=== PATIENT | male | born 1945 | race Two or more races ===

== ENCOUNTER → 2017-09-07 | Day surgery (SDC) | payer MEDICARE, OTHER ==
[2017-09-06 14:41] LABS: BASOPHILS % 0.8 % (0.0-1.0); EOSINOPHILS # (AUTO) 0.1 (0.0-0.4); EOSINOPHILS % 2.4 % (0.0-6.0); HEMATOCRIT 47.9 % (38.2-49.6); HEMOGLOBIN 15.9 g/dL (14.0-18.0); LYMPHOCYTES # (AUTO) 1.9 (1.0-3.2); LYMPHOCYTES % 51.4 % (18.0-39.1); MEAN CORPUSCULAR HEMOGLOBIN 29.8 pg (28-32); MEAN CORPUSCULAR HGB CONC 33.2 g/dL (31-35); MEAN CORPUSCULAR VOLUME 89.9 fL (81-99); MONOCYTES # (AUTO) 0.4 (0.2-0.8); MONOCYTES % 11.4 % (4.4-11.3); NEUTROPHILS # (AUTO) 1.2 (2.1-6.9); NEUTROPHILS % 33.2 % (38.7-80.0); PLATELET COUNT 293 x10e3/uL (140-360); RED BLOOD COUNT 5.33 x10e6/uL (4.3-5.7); RED CELL DISTRIBUTION WIDTH 13.1 % (11.7-14.4)
--- NOTE | 2017-09-06 15:10 | Diagnostic Imaging Report ---
PROCEDURE: Frontal and lateral views of the chest. COMPARISON: Chest CT dated 08/06/16 INDICATIONS: PREOPERATIVE CHEST XRAY FOR PROSTATE BIOPSY FINDINGS: Lines/tubes: None. Lungs: The lungs are well inflated and clear. There is no evidence of pneumonia or pulmonary edema. Pleura: There is no pleural effusion or pneumothorax. Heart and mediastinum: The heart and the mediastinum are normal. Bones: No acute bony abnormality. IMPRESSION: 1. No acute cardiopulmonary disease. Dictated by: Jareth Simpson M.D. on 09/06/2017 at 15:18 Electronically approved by: Jareth Simpson M.D. on 09/06/2017 at 15:18
[~2017-09-07] MED LIST: AMITRIPTYLINE H25 MG PO; BELLADONNA/OPIUM 60 MG SUPP PR ONE; CEFAZOLIN SOD 2 GM/D5W 50ML 50 ML IV ONE; CIPRO500 MG PO; DEXAMETHASONE SOD PHOS INJ 4 MG/ML VIAL ONE; FENTANYL CITRATE/PF 100MCG/2 ML INJ ONE; FLOMAX0.4 MG; FLOMAX0.4 MG PO; IOPAMIDOL 610MG/1ML 300 MG/ML VIAL IV ONE; KEFLEX; LEVAQUIN500 MG PO; LIDOCAINE HCL 2% LOCAL INJ 5 ML SDV VIAL INJ ONE; LOSARTAN PO; MIDAZOLAM HCL 2 MG/2 ML VIAL ONE; ONDANSETRON HCL INJ 2 MG/ML VIAL ONE; PHENAZOPYRIDIN200 MG PO; POTASSIUM CHLO10 MEQ PO; PROPOFOL IV EMULSION 10 MG/ML 20 ML VIAL ONE; SEVOFLURANE INHAL SOLN 250 ML PEN BTL ONE; SODIUM CHLORIDE 0.9% IV SCH; TOBRAMYCIN IV SCH; TRAZODONE HCL50 MG PO; TRIAMTERENE-HC1 EAC1 PO; ZANAFLEX4 M1 PO
--- NOTE | 2017-09-07 13:11 | Operative Report ---
DATE OF PROCEDURE: September 07, 2017 SERVICE: Urology. PREOPERATIVE DIAGNOSES 1. Microhematuria. 2. Elevated prostate-specific antigen. 3. Frequency. 4. BPH. POSTOPERATIVE DIAGNOSES 1. Microhematuria. 2. Elevated prostate-specific antigen. 3. Frequency. 4. BPH. OPERATION PERFORMED 1. Cystoscopy and bilateral retrograde pyelograms under fluoroscopic control. 2. Supervision of fluoroscopy. 3. Interpretation of x-ray. 4. Prostate ultrasound. 5. Ultrasound-guided needle biopsy of the prostate with 12 cores, 6 from each side. SHEET ROCK NAILER: None. ANESTHESIA: General. CLINICAL INDICATIONS: This is a 71-year-old patient that was brought for evaluation of microhematuria and elevated PSA. Attempt to do a biopsy in the office was not very well tolerated by the patient; therefore, it is going to be done under anesthesia. The procedure was discussed with the patient including potential benefits and complications, discussed and accepted. DESCRIPTION OF PROCEDURE AND FINDINGS: After proper level of anesthesia was achieved, the patient was placed in the lithotomy position, prepped and draped in a sterile fashion. The urethra was inspected and was unremarkable. The outlet is obstructed by a trilobar prostate. The bladder is significantly trabeculated. Multiple shallow saccules are present. Both ureteral orifices are in normal position. No tumor was present in the bladder. A cone-tip catheter was then used, and bilateral retrograde pyelograms were done under fluoroscopic control. No intrinsic lesions were identified. There was minimal J-hooking of the distal ureters bilaterally. Following this, the bladder was filled up with irrigation fluid. Ultrasound examination of the prostate was then done. Systematic prostate biopsies were done with 6 cores from each side, 2 base, 2 mid and 2 apex. Same was done on the contralateral side. All this was done with ultrasound guidance. The patient tolerated the procedure well. A B\T\O suppository was inserted transrectally following the procedure. The patient was transferred in satisfactory condition to the recovery room. He will be followed as an outpatient. Job#: [id number]
== END | disposition home or self-care (01) ==
LOC: OR 07:10
PROVIDERS: ATTEND Urology
DX: R97.20 Elevated prostate specific antigen [PSA] (principal); N42.89 Other specified disorders of prostate; N41.1 Chronic prostatitis; N32.89 Other specified disorders of bladder; I10 Essential (primary) hypertension; I45.10 Unspecified right bundle-branch block; R00.1 Bradycardia, unspecified; N40.0 Benign prostatic hyperplasia without lower urinary tract symptoms; Z01.810 Encounter for preprocedural cardiovascular examination; Z01.812 Encounter for preprocedural laboratory examination; Z01.818 Encounter for other preprocedural examination; Z86.73 Personal history of transient ischemic attack (TIA), and cerebral infarction without residual deficits
CPT/HCPCS: 36415; 52005; 55700; 71020; 74420; 76872; 76942; 85025; 88305; 93005; C1758; J1100; J2001; J2250; J2405; J3260; Q9967; 71046

== ENCOUNTER 2018-07-06 08:34 | Observation (INO) | payer MEDICARE, OTHER ==
[2018-07-04 09:42] LABS: BASOPHILS # (AUTO) 0.1 (0.0-0.1); BASOPHILS % 1.4 % (0.0-1.0); EOSINOPHILS # (AUTO) 0.1 (0.0-0.4); EOSINOPHILS % 2.9 % (0.0-6.0); HEMOGLOBIN 15.4 g/dL (14.0-18.0); LYMPHOCYTES # (AUTO) 1.9 (1.0-3.2); LYMPHOCYTES % 43.9 % (18.0-39.1); MEAN CORPUSCULAR HGB CONC 33.5 g/dL (31-35); MEAN CORPUSCULAR VOLUME 89.5 fL (81-99); MONOCYTES # (AUTO) 0.5 (0.2-0.8); MONOCYTES % 10.2 % (4.4-11.3); NEUTROPHILS # (AUTO) 1.7 (2.1-6.9); NEUTROPHILS % 37.8 % (38.7-80.0); PLATELET COUNT 213 x10e3/uL (140-360); RED BLOOD COUNT 5.14 x10e6/uL (4.3-5.7)
[2018-07-04 10:09] LABS: INR 0.95; PROTHROMBIN TIME 13.6 seconds (11.9-14.5)
[2018-07-04 10:18] LABS: ANION GAP 12.5 mmol/L (8-16); BLOOD UREA NITROGEN 12 mg/dL (7-26); BUN/CREATININE RATIO 13 (6-25); CALCIUM 9.7 mg/dL (8.4-10.2); CARBON DIOXIDE 28 mmol/L (22-29); CHLORIDE 106 mmol/L (98-107); CREATININE, SERUM 0.96 mg/dL (0.72-1.25); EST GLOMERULAR FILTRATION RATE > 60 ML/MIN (60-); GLUCOSE 86 mg/dL (74-118); POTASSIUM 4.5 mmol/L (3.5-5.1); SODIUM 142 mmol/L (136-145)
[2018-07-04 12:32] LABS: ANISOCYTOSIS SLIGHT; EOSINOPHILS % (MANUAL) 2 % (0-7); LYMPHOCYTES % (MANUAL) 33 % (19-48); METAMYELOCYTES % (MANUAL) 2 % (0-0); MONOCYTES % (MANUAL) 9 % (3.4-9.0); MYELOCYTES % (MANUAL) 1 % (0-0); NEUTROPHILS % (MANUAL) 48 % (40-74); RBC MORPHOLOGY COMMENT NORMAL
[2018-07-04 12:33] LABS: PLATELET ESTIMATE ADEQUATE; PLATELET MORPHOLOGY COMMENT NORMAL
[~2018-07-06] VITALS: Ht 170.2 cm; Wt 83.1 kg
[~2018-07-06 08:34] MED LIST changes: -BELLADONNA/OPIUM 60 MG SUPP PR ONE; -CEFAZOLIN SOD 2 GM/D5W 50ML 50 ML IV ONE; -DEXAMETHASONE SOD PHOS INJ 4 MG/ML VIAL ONE; -FENTANYL CITRATE/PF 100MCG/2 ML INJ ONE; -IOPAMIDOL 610MG/1ML 300 MG/ML VIAL IV ONE; -LIDOCAINE HCL 2% LOCAL INJ 5 ML SDV VIAL INJ ONE; +LOSARTAN POTASS50 MG PO; -MIDAZOLAM HCL 2 MG/2 ML VIAL ONE; -ONDANSETRON HCL INJ 2 MG/ML VIAL ONE; -PROPOFOL IV EMULSION 10 MG/ML 20 ML VIAL ONE; -SEVOFLURANE INHAL SOLN 250 ML PEN BTL ONE; +SIMVASTATIN40 MG PO; -SODIUM CHLORIDE 0.9% IV SCH; -TOBRAMYCIN IV SCH
--- OUTSIDE RECORDS SUMMARY | 2018-07-06 08:37 | XMS REPORT | Clinical Summary ---
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 Active losartan (COZAAR) 50 MG Take 50 mg by 0 tablet mouth daily. Active simvastatin (ZOCOR) 40 MG Take 40 mg by 0 tablet mouth nightly. Active multivitamin (THERAGRAN) Take 1 tablet 0 tablet by mouth daily. Active ascorbic acid, vitamin C, Take 500 mg 0 (VITAMIN C) 500 MG tablet by mouth daily. Active traZODone (DESYREL) 100 Take 100 mg 0 MG tablet by mouth nightly. Active Problems Not on file Encounters Care Team Description Date Type Specialty Ruben Montero MD Cysto Retrograde-Bilateral 02/15/2018 Surgery General Surgery Mainor Mims MD 02/15/2018 Anesthesia General Surgery Event Ruben Montero MD 02/15/2018 Hospital General Surgery Encounter Ruben Montero MD Preoperative testing (Primary Dx) 02/10/2018 Pre-Admit Pre-Admission Testing Testing Appointment Ruben Montero MD Benign localized hyperplasia of prostate with urinary retention 01/11/2018 Hospital Radiology Encounter Ruben Montero MD Benign localized hyperplasia of prostate with urinary retention (Primary Dx) 12/27/2017 Transcribe Access Orders after 07/05/2017 Family History Medical History Relation Name Comments No Known Problems Father No Known Problems Mother Relation Name Status Comments Father Mother Social History Date Tobacco Use Types Packs/Day Years Used Current Every Day Smoker Smokeless Tobacco: Never Used Comments: HOOKA Alcohol Use Drinks/Week oz/Week Comments No Sex Assigned at Date Recorded Not on file Industry Job Start Date Occupation Not on file Not on file Not on file Travel End Travel History Travel Start No recent travel history available. Last Filed Vital Signs Time Taken Vital Sign Reading 02/15/2018 1:58 PM CDT Blood Pressure 131/74 02/15/2018 1:58 PM CDT Pulse 57 02/15/2018 1:58 PM CDT Temperature 36.3 C (97.3 F) 02/15/2018 1:58 PM CDT Respiratory Rate 18 02/15/2018 1:58 PM CDT Oxygen Saturation 97% - Inhaled Oxygen - Concentration 02/15/2018 10:24 AM CDT Weight 78.2 kg (172 lb 4.8 oz) 02/15/2018 10:24 AM CDT Height 170.2 cm (5' 7") 02/15/2018 10:24 AM CDT Body Mass Index 26.99 Plan of Treatment Health Maintenance Due Date Last Done Comments COLON CANCER SCREENING 12/08/1995 SHINGRIX VACCINE (1 of 2) 12/08/1995 ZOSTER VACCINE 2005 PNEUMOCOCCAL 2010 POLYSACCHARIDE VACCINE AGE 65 AND OVER PNEUMOCOCCAL-13 2010 INFLUENZA VACCINE 03/09/2018 Procedures Comments Procedure Name Priority Date/Time Associated Diagnosis FL PYELOGRAM RETROGRADE Routine 02/15/2018 2:31 PM CDT ANESTHESIA INTUBATION Routine 02/15/2018 1:02 PM CDT Procedure Note - Angel Espinoza CRNA - 02/15/2018 1:02 PM CDT Airway Performed by: ANGEL ESPINOZA Authorized by: MAINOR MIMS IN AN ELECTIVE Routine 02/15/2018 SUPRAGLOTTIC AIRWAY 12:57 PM CDT Procedure Note - Angel Espinoza CRNA - 02/15/2018 12:57 PM CDT Airway Date/Time: 02/15/2018 12:48 PM Performed by: ANGEL ESPINOZA Authorized by: MAINOR MIMS Location: OR Urgency: Elective Difficult Airway: No Resident/C RNA/AA: ANGEL ESPINOZA Performed by: resident/C RNA/AA Preoxygena brenton with 100% O2: Yes C-spine Precaution s Maintained Throughout : Yes Mask Ventilatio n: Not attempted Final Airway Type: Supraglott ic airway Final LMA: Classic LMA Size: 4 Number of Attempts at Approach: 1 ECG PRE/POST OP Routine 02/10/2018 Preoperative testing 12:41 PM CDT ZZESTIMATED GFR Routine 02/10/2018 12:20 PM CDT BASIC METABOLIC PANEL Routine 02/10/2018 Preoperative testing 12:20 PM CDT HC COMPLETE BLD COUNT Routine 02/10/2018 Preoperative testing W/AUTO DIFF 12:20 PM CDT ZZESTIMATED GFR Routine 01/11/2018 11:43 AM CDT PROSTATE SPECIFIC ANTIGEN Routine 01/11/2018 Neoplasm of uncertain 11:43 AM CDT behavior of prostate Nontraumatic rupture of bladder PROTHROMBIN TIME WITH INR Routine 01/11/2018 Neoplasm of uncertain 11:43 AM CDT behavior of prostate Nontraumatic rupture of bladder BASIC METABOLIC PANEL Routine 01/11/2018 Neoplasm of uncertain 11:43 AM CDT behavior of prostate Nontraumatic rupture of bladder CBC HEMOGRAM Routine 01/11/2018 Neoplasm of uncertain 11:43 AM CDT behavior of prostate Nontraumatic rupture of bladder US PROSTATE Routine 01/11/2018 Benign localized 11:38 AM CDT hyperplasia of prostate with urinary retention after 07/05/2017 Results * FL Pyelogram Retrograde (02/15/2018 2:31 PM CDT) Narrative Performed At EXAM: [facility] Intraoperative fluoroscopy. INDICATION: Retrograde pyelogram COMPARISON: None. IMPRESSION: Retrograde cannulation right ureter with contrast injection. No right hydroureteronephrosis. Retrograde cannulation left ureter with contrast injection. No left hydroureteronephrosis. Final image demonstrate cystoscope left paramedian bladder. Partially visualized moderate arthrosis left hip. Intraoperative fluoroscopic images. Radiologist was not present during the examination. Please see separate operative report for additional detail. Fluoroscopy time equals 47 seconds. 4 image(s). Procedure Note Interface, Radiology Results Incoming - 02/15/2018 2:54 PM CDT EXAM: Intraoperative fluoroscopy. INDICATION: Retrograde pyelogram COMPARISON: None. IMPRESSION: Retrograde cannulation right ureter with contrast injection. No right hydroureteronephrosis. Retrograde cannulation left ureter with contrast injection. No left hydroureteronephrosis. Final image demonstrate cystoscope left paramedian bladder. Partially visualized moderate arthrosis left hip. Intraoperative fluoroscopic images. Radiologist was not present during the examination. Please see separate operative report for additional detail. Fluoroscopy time equals 47 seconds. 4 image(s). Performing Organization Address [facility] Phone Number [facility] [address] [place] [address] * ECG Pre/Post Op (02/10/2018 12:41 PM CDT) Ventricular rate 49 [facility] Atrial rate 49 [facility] IN interval 136 [facility] QRSD interval 130 [facility] QT interval 444 [facility] QTC interval 401 [facility] P axis 1 27 [facility] QRS axis 1 -49 [facility] T wave axis 31 [facility] EKG impression Marked sinus bradycardia-Right [facility] MUSE bundle branch block-Left anterior fascicular block-^^^ Bifascicular block ^^^-Possible Lateral infarct , age undetermined-Abnormal ECG-In automated comparison with ECG of 17-MAY-2013 16:37,-Vent. rate has decreased BY26 BPM-(RBBB and left anterior fascicular block) is now present- Performing Organization Address [facility] Phone Number [facility] MUSE [address] [place] [address] * Estimated GFR (02/10/2018 12:20 PM CDT) Only the most recent of 2 results within the time period is included. GFR Non Af Amer 73 mL/min/1.73 m2 [facility]OLOGY AND GENOMIC MEDICINE GFR Af Amer 89 mL/min/1.73 m2 [facility] OF Comment: PATHOLOGY AND Chronic kidney disease: <60 GENOMIC MEDICINE mL/min/1.73m2 Kidney failure: <15 mL/min/1.73m2 The estimated GFR is calculated from the IDMS-traceable Modification of Diet in Renal Disease Equation. The accuracy of the calculation is poor when the creatinine is normal. Calculated values >90 mL/min/1.73m2 are not reported. This equation has not been validated in children (<18 years), women, the elderly (>70 years), or ethnic groups other than Caucasians and Americans. Specimen Plasma specimen Performing Organization Address City/[facility]/Zipcode Phone Number [phone] [place] [address] PATHOLOGY AND GENOMIC MEDICINE * CBC with platelet and differential (02/10/2018 12:20 PM CDT) WBC 4.3 4.2 - 11.0 k/uL [facility] AND GENOMIC MEDICINE RBC 4.96 4.04 - 5.86 m/uL [facility] PATHOLOGY AND GENOMIC MEDICINE HGB 14.8 13.0 - 17.3 g/dL [facility] PATHOLOGY AND GENOMIC MEDICINE HCT 45.8 (H) 34.0 - 45.0 % [facility]OLOGY AND GENOMIC MEDICINE MCV 92.3 80.0 - 98.0 fL [facility]OLOGY AND GENOMIC MEDICINE MCH 29.8 27.0 - 34.0 pg [facility] OF PATHOLOGY AND GENOMIC MEDICINE MCHC 32.3 31.5 - 36.5 g/dL [facility] OF PATHOLOGY AND GENOMIC MEDICINE RDW - SD 45.1 37.0 - 51.0 fL [facility]OLOGY AND GENOMIC MEDICINE MPV 10.1 7.4 - 10.4 fL [facility]OLOGY AND GENOMIC MEDICINE Platelet count 206 150 - 400 k/uL [facility]OLOGY AND GENOMIC MEDICINE Nucleated RBC 0.00 /100 WBC [facility] OF PATHOLOGY AND GENOMIC MEDICINE Neutrophils 48.3 36.0 - 66.0 % [facility]OLOGY AND GENOMIC MEDICINE Lymphocytes 38.2 24.0 - 44.0 % [facility]OLOGY AND GENOMIC MEDICINE Monocytes 9.3 (H) 0.0 - 6.0 % [facility]OLOGY AND GENOMIC MEDICINE Eosinophils 3.5 0.0 - 6.0 % [facility] OF PATHOLOGY AND GENOMIC MEDICINE Basophils 0.5 0.0 - 1.2 % [facility] PATHOLOGY AND GENOMIC MEDICINE Immature granulocytes 0.2 0.0 - 1.0 % [facility] OF PATHOLOGY AND GENOMIC MEDICINE Specimen Blood Performing Organization Address City/State/Zipcode Phone Number [address] [place] [address] PATHOLOGY AND [employer] [facility] * Basic metabolic panel (02/10/2018 12:20 PM CDT) Only the most recent of 2 results within the time period is included. Sodium 142 135 - 150 mEq/L [facility] OF PATHOLOGY AND [employer] MEDICINE Potassium 4.3 3.5 - 5.0 mEq/L [facility] OF PATHOLOGY AND [employer] MEDICINE Chloride 104 98 - 112 mEq/L [facility] PATHOLOGY AND [employer] MEDICINE CO2 27 24 - 31 mmol/L [facility] OF PATHOLOGY AND [employer] MEDICINE Anion gap 11@ANIO 7 - 15 mEq/L [facility] OF PATHOLOGY AND [employer] MEDICINE BUN 10 7 - 18 mg/dL [facility] OF PATHOLOGY AND [employer] MEDICINE Creatinine 1.00 0.70 - 1.20 mg/dL [facility] OF PATHOLOGY AND [employer] MEDICINE Glucose 89 65 - 100 mg/dL [facility] PATHOLOGY AND [employer] MEDICINE Calcium 9.8 8.8 - 10.2 mg/dL [facility] PATHOLOGY AND [employer] MEDICINE Specimen Plasma specimen Performing Organization Address City/[facility] Phone Number [address] [place] [address] PATHOLOGY [facility] [employer] [facility] * Prothrombin time with INR (01/11/2018 11:43 AM CDT) Prothrombin time 13.7 12.0 - 15.0 sec [facility] PATHOLOGY AND [employer] MEDICINE INR 1.04 0.92 - 1.12 [facility] Comment: PATHOLOGY AND For patients on anticoagulant GENOMIC MEDICINE therapy, reference ranges below: Indication: INR Value Treatment of Venous Thrombosis, 2.0-3.0 pulmonary emboli, or prophylaxis of a venous thrombosis, or systemic emboli. High dose, high risk patients 3.0-4.5 with mechanical valves. NOTE:INR values over 3.0 are sometimes associated with gastrointestinal hemorrhage, especially values over 4.0. Specimen Blood Performing Organization Address City/[facility] Phone Number [address] [employer] [facility] * CBC hemogram (01/11/2018 11:43 AM CDT) WBC 4.0 (L) 4.2 - 11.0 k/uL [facility] PATHOLOGY AND GENOMIC MEDICINE RBC 4.90 4.04 - 5.86 m/uL [facility] PATHOLOGY AND GENOMIC MEDICINE HGB 14.4 13.0 - 17.3 g/dL [facility] PATHOLOGY AND GENOMIC MEDICINE HCT 45.0 34.0 - 45.0 % [facility] PATHOLOGY AND GENOMIC MEDICINE MCV 91.8 80.0 - 98.0 fL [facility] PATHOLOGY AND GENOMIC MEDICINE MCH 29.4 27.0 - 34.0 pg [facility] OF PATHOLOGY AND GENOMIC MEDICINE MCHC 32.0 31.5 - 36.5 g/dL [facility] OF PATHOLOGY AND GENOMIC MEDICINE RDW - SD 48.1 37.0 - 51.0 fL [facility] OF PATHOLOGY AND GENOMIC MEDICINE MPV 10.9 (H) 7.4 - 10.4 fL [facility]OLOGY AND GENOMIC MEDICINE Platelet count 171 150 - 400 k/uL [facility] OF PATHOLOGY AND GENOMIC MEDICINE Nucleated RBC 0.00 /100 WBC [facility] OF PATHOLOGY AND GENOMIC MEDICINE Specimen Blood Performing Organization Address City/[facility]/Zipcode Phone Number [facility] [address] [place] [address] PATHOLOGY AND GENOMIC MEDICINE * Prostate specific antigen (01/11/2018 11:43 AM CDT) PSA 5.1 (H) 0.0 - 4.0 ng/mL [facility] DEPARTMENT OF Comment: PATHOLOGY AND The HAO 8000 PSA immunoassay [facility] was used. Results obtained with different assay methods or kits should not be used interchangeably and may be different. Specimen Plasma specimen Performing Organization Address City/[facility]/Zipcode Phone Number [facility] DEPARTMENT OF [address] [place] [address] PATHOLOGY AND GENOMIC MEDICINE * US Prostate (01/11/2018 11:38 AM CDT) Narrative Performed At EXAMINATION:US PROSTATE [facility] CLINICAL HISTORY:N40.1 Benign prostatic hyperplasia with lower urinary tract symptoms, N40.1 COMPARISON:None. Multiple transrectal sonographic images of the prostate gland are obtained using real-time ultrasonography. FINDINGS: The prostate gland measures 5.1 x 5.8 x 4.2 cm. The prostate volume is 65.8 cc. The prostate has a heterogeneous appearance. Minimal calcifications are present. The seminal vesicles are unremarkable. There is a 0.7 cm hypoechoic density seen within the prostate. IMPRESSION: 1. The prostate gland is enlarged. 2. The prostate has a heterogeneous appearance. 3. There is a 0.7 cm hypoechoic density seen within the prostate. Procedure Note Hm Interface, Radiology Results Incoming - 01/11/2018 2:29 PM CDT EXAMINATION: US PROSTATE CLINICAL HISTORY: N40.1 Benign prostatic hyperplasia with lower urinary tract symptoms, N40.1 COMPARISON: None. Multiple transrectal sonographic images of the prostate gland are obtained using real-time ultrasonography. FINDINGS: The prostate gland measures 5.1 x 5.8 x 4.2 cm. The prostate volume is 65.8 cc. The prostate has a heterogeneous appearance. Minimal calcifications are present. The seminal vesicles are unremarkable. There is a 0.7 cm hypoechoic density seen within the prostate. IMPRESSION: 1. The prostate gland is enlarged. 2. The prostate has a heterogeneous appearance. 3. There is a 0.7 cm hypoechoic density seen within the prostate. Performing Organization Address City/State/[facility] Phone Number [facility] [address] [place] [address] after 07/05/2017 Insurance Payer Benefit Subscriber ID Type Phone Address Plan / Group MEDICARE MEDICARE xxxxxxxxxx Medicare [place], [place] PART A AND B [employer] Advance Directives Patient has advance care planning documents on file. For more information, eduardo e contact: Brown Michelle [address] [place] [address]
--- OUTSIDE RECORDS SUMMARY | 2018-07-06 08:38 | XMS REPORT | Summary of Care ---
Author Author [facility] Organization [facility] Address Unknown Phone Unavailable Encounter LILLIE Miranda(LARISSA) [id number] Date(s): 07/08/17 - 07/08/17 [facility] [address] [address]- [phone] Discharge Disposition: Home or Self Care Attending Physician: Ayo Roque MD Referring Physician: Ayo Roque MD Vital Signs 1 2 3 Most recent to oldest [Reference Range]: 170.18 cm (07/05/17 2:46 PM) Height 97.9 DegF (07/08/17 11:44 AM) 97.9 DegF (07/06/17 10:23 AM) Temperature Oral [96.4-99.1 DegF] 140/85 mmHg (07/08/17 2:34 PM) 133/91 mmHg (07/08/17 2:24 PM) 133/87 mmHg (07/08/17 2:20 PM) Blood Pressure [90-140/60-90 mmHg] 14 BRMIN (07/08/17 3:01 PM) 14 BRMIN (07/08/17 2:34 PM) 14 BRMIN (07/08/17 2:24 PM) Respiratory Rate [14-20 BRMIN] 68 bpm (07/08/17 11:44 AM) 64 bpm (07/06/17 10:23 AM) Peripheral Pulse Rate [60-100 bpm] 85.455 kg (07/08/17 11:02 AM) Weight 29.51 m2 (07/08/17 11:02 AM) Body Mass Index Problem List Condition Effective Dates Status Health Status Informant Acute Active prostatitis(Confirme d) Anxiety(Confirmed) Active BPH (benign Active prostatic hyperplasia)(Confirm ed) Acid Active reflux(Confirmed)1 Hypercholesterolemia Active (Confirmed) Hypertension(Confirm Active ed)2 Kidney Resolved stone(Confirmed)3 Stroke(Confirmed)4 Resolved 1Occassionally 2HTN per Surgeon H & P; pt denies HTN, states "was put on the medication because of previous stroke." 3had a cystoscopy to remove. 4~ 10 years ago; states no residual effects. Allergies, Adverse Reactions, Alerts Substance Reaction Severity Status NKDA Active Medications acetaminophen-hydrocodone 325 mg-10 mg oral tablet 1 tab, Route: PO, Drug Form: TAB, Dosing Weight 85.455, kg, Q4H, PRN Pain Score 4-6, Start date: 07/08/17 14:18:00 COMMERCIAL ACCOUNTANT, Duration: 30 day, Stop date: 08/07/17 14 :17:00 COMMERCIAL ACCOUNTANT Notes: Do not exceed 4gm/day of acetaminophen. (Same as: [place] 325/10) Start Date: 07/08/17 Stop Date: 07/09/17 Status: Discontinued Ancef 2 gm, Route: IVP, Drug form: PDR/INJ, ONCE, Dosing Weight 85.455, kg, Start date : 07/08/17 12:46:00 COMMERCIAL ACCOUNTANT, Stop date: 07/08/17 12:46:00 COMMERCIAL ACCOUNTANT, Surgical Prophylaxis Only; For patients < 120 kg, ABX Indication: Surgical Prophylaxis Notes: (Same As: Evi Uribe) MEDICATION WASTE Product Size: 1000 mgP roduct Wasted: ___ mg Start Date: 07/08/17 Stop Date: 07/08/17 Status: Ordered ANES hydrALAZINE 10 mg, 0.5 mL, Route: IVP, Drug form: INJ, Q20Min, Dosing Weight 85.455, kg, PRN Elevated BP, Start date: 07/08/17 12:09:00 COMMERCIAL ACCOUNTANT, Duration: 2 doses or times, Stop date: Limited # of times Notes: (Same as: Apresoline)Push over 5 minutes Start Date: 07/08/17 Stop Date: 07/08/17 Status: Discontinued ANES HYDROmorphone 0.5 mg, 0.25 mL, Route: IVP, Drug form: INJ, Q5Min, Dosing Weight 85.455, kg, TX N Pain Score 7-10, Start date: 07/08/17 12:09:00 COMMERCIAL ACCOUNTANT, Duration: 4 doses or times , Stop date: Limited # of times Notes: Same as Dilaudid Start Date: 07/08/17 Stop Date: 07/08/17 Status: Discontinued ANES labetalol 10 mg, 2 mL, Route: IVP, Drug form: INJ, Q5Min, Dosing Weight 85.455, kg, PRN El evated BP, Start date: 07/08/17 12:09:00 COMMERCIAL ACCOUNTANT, Duration: 5 doses or times, Stop d ate: Limited # of times Start Date: 07/08/17 Stop Date: 07/08/17 Status: Discontinued ANES ondansetron 4 mg, 2 mL, Route: IVP, Drug form: INJ, ONCE, Dosing Weight 85.455, kg, PRN Naus ea & Vomiting, Start date: 07/08/17 12:09:00 COMMERCIAL ACCOUNTANT Notes: (Same as: Zofran) MEDICATION WASTE Product Size: 4 mgProduct Was brenton: ___ mg Start Date: 07/08/17 Stop Date: 07/08/17 Status: Discontinued ANES promethazine 6.25 mg, 0.25 mL, Route: IVPB, Drug form: INJ, ONCE, Dosing Weight 85.455, kg, P RN Nausea & Vomiting, Start date: 07/08/17 12:09:00 COMMERCIAL ACCOUNTANT Notes: Do not give IV push. (Same as: Phenergan) Start Date: 07/08/17 Stop Date: 07/08/17 Status: Discontinued aspirin 81 mg tablet, enteric coated 81 mg=1 tab, PO, Daily, # 90 tab, 3 Refill(s) Start Date: 07/05/17 Status: Ordered Breo Ellipta 100 mcg-25 mcg inhalation powder 1 puff, INHALATION, Daily, 0 Refill(s) Start Date: 07/05/17 Status: Ordered CeleXA 40 mg oral tablet 40 mg=1 tab, PO, Daily, # 30 tab, 0 Refill(s) Start Date: 07/05/17 Status: Ordered hydromorphone 0.3 mg, 0.15 mL, Route: IVP, Drug form: INJ, Q3H, Dosing Weight 85.455, kg, PRN Pain Score 4-6, Start date: 07/08/17 14:18:00 COMMERCIAL ACCOUNTANT, Duration: 30 day, Stop date: 08/07/17 14:17:00 COMMERCIAL ACCOUNTANT Notes: Same as Dilaudid Start Date: 07/08/17 Stop Date: 07/09/17 Status: Discontinued ketoconazole topical 2% cream 1 appl, TOP, Daily, # 15 gm, 0 Refill(s) Start Date: 07/05/17 Stop Date: 07/19/17 Status: Ordered Lactated Ringers IV 1,000 mL 1,000 mL, Rate: 40 ml/hr, Infuse over: 25 hr, Route: IV, Dosing Weight 85.455 kg , Total Volume: 1,000, Start date: 07/08/17 12:46:00 COMMERCIAL ACCOUNTANT, Duration: 30 day, Stop date: 08/07/17 12:45:00 COMMERCIAL ACCOUNTANT, 2.03, m2 Start Date: 07/08/17 Stop Date: 07/09/17 Status: Discontinued losartan 50 mg oral tablet 50 mg=1 tab, PO, Daily, HOLD DOS., # 30 tab, 0 Refill(s) Start Date: 07/05/17 Status: Ordered morphine Sulfate 2 mg, 0.2 mL, Route: IVP, Drug form: INJ, Q3H, Dosing Weight 85.455, kg, PRN Mauro n Score 1-3, Start date: 07/08/17 14:18:00 COMMERCIAL ACCOUNTANT, Duration: 30 day, Stop date: 14:17:00 COMMERCIAL ACCOUNTANT Notes: (Same as:MORPhine Sulfate) Start Date: 07/08/17 Stop Date: 07/09/17 Status: Discontinued multivitamin Daily, 0 Refill(s) Start Date: 07/05/17 Status: Ordered NexIUM 40 mg oral delayed release capsule 40 mg=1 cap, PO, Daily, # 30 cap, 0 Refill(s) Start Date: 07/05/17 Status: Ordered nitrofurantoin macrocrystals 100 mg oral capsule (Macrodantin) 100 mg=1 cap, PO, BID, # 40 cap, 0 Refill(s) Start Date: 07/05/17 Stop Date: 07/15/17 Status: Ordered simvastatin 40 mg oral tablet 40 mg=1 tab, PO, Bedtime, # 30 tab, 5 Refill(s) Start Date: 07/05/17 Status: Ordered tamsulosin 0.4 mg oral capsule 0.4 mg=1 cap, PO, Daily, # 30 cap, 0 Refill(s) Start Date: 07/05/17 Status: Ordered tramadol 50 mg, 1 tab, Route: PO, Drug form: TAB, Q6H, Dosing Weight 85.455, kg, PRN Pain Score 1-3, Start date: 07/08/17 14:18:00 COMMERCIAL ACCOUNTANT, Duration: 30 day, Stop date: 07/11 14:17:00 COMMERCIAL ACCOUNTANT Notes: Not to exceed 400mg/day. (Same As: Ultram) Start Date: 07/08/17 Stop Date: 07/09/17 Status: Discontinued trazodone 100 mg oral tablet See Instructions, 1-2 tablets PO Q day., 0 Refill(s) Start Date: 07/05/17 Status: Ordered Viagra 100 mg oral tablet 100 mg=1 tab, PO, Daily, PRN for erectile dysfunction, # 30 tab, 0 Refill(s) Start Date: 07/05/17 Status: Ordered Vitamin C See Instructions, Unknown dose; 1 tab po Daily, 0 Refill(s) Start Date: 07/05/17 Status: Ordered Results ELECTROLYTES Most recent to 1 oldest [Reference Range]: Sodium Lvl [135-145 140 mEq/L mEq/L] (07/06/17 10:25 AM) Potassium Lvl 4.5 mEq/L [3.5-5.1 mEq/L] (07/06/17 10:25 AM) Chloride Lvl [95-109 106 mEq/L mEq/L] (07/06/17 10:25 AM) CO2 [24-32 mEq/L] 28 mEq/L (07/06/17 10:25 AM) AGAP [10.0-20.0 10.5 mEq/L mEq/L] (07/06/17 10:25 AM) CHEM PANEL Most recent to 1 oldest [Reference Range]: Creatinine Lvl 1.00 mg/dL [0.50-1.40 mg/dL] (07/06/17 10:25 AM) eGFR 75 mL/min/1.73m2 1 *NA* (07/06/17 10:25 AM) BUN [7-22 mg/dL] 13 mg/dL (07/06/17 10:25 AM) Glucose Lvl [70-99 91 mg/dL mg/dL] (07/06/17 10:25 AM) Calcium Lvl 8.8 mg/dL [8.5-10.5 mg/dL] (07/06/17 10:25 AM) 1Result Comment: The eGFR is calculated using the CKD-EPI formula. In most young, healthy individuals the eGFR will be >90 mL/min/1.73m2. The eGFR declines with age. An eGFR of 60-89 may be normal in some populations, particularly the elderly, for whom the CKD-EPI formula has not been extensively validated. Use of the eGFR is not recommended in the following populations: Individuals with unstable creatinine concentrations, including patients and those with serious co-morbid conditions. Patients with extremes in muscle mass or diet. The data above are obtained from the National Kidney Disease Education Program ( NKDEP) which additionally recommends that when the eGFR is used in patients with extremes of body mass index for purposes of drug dosing, the eGFR should be mul tiplied by the estimated BMI. HEMATOLOGY Most recent to 1 oldest [Reference Range]: WBC [3.7-10.4 K/CMM] 3.7 K/CMM (07/06/17 10:25 AM) RBC [4.70-6.10 5.32 M/CMM M/CMM] (07/06/17 10:25 AM) Hgb [14.0-18.0 g/dL] 15.7 g/dL (07/06/17 10:25 AM) Hct [42.0-54.0 %] 47.1 % (07/06/17 10:25 AM) MCV [80.0-94.0 fL] 88.6 fL (07/06/17 10:25 AM) MCH [27.0-31.0 pg] 29.6 pg (07/06/17 10:25 AM) MCHC [32.0-36.0 33.4 g/dL g/dL] (07/06/17 10:25 AM) RDW [11.5-14.5 %] 13.9 % (07/06/17 10:25 AM) Platelet [133-450 219 K/CMM K/CMM] (07/06/17 10:25 AM) MPV [7.4-10.4 fL] 8.5 fL (07/06/17 10:25 AM) Segs [45.0-75.0 %] 29.6 % *LOW* (07/06/17 10:25 AM) Lymphocytes 52.2 % [20.0-40.0 %] *HI* (07/06/17 10:25 AM) Monocytes [2.0-12.0 11.0 % %] (07/06/17 10:25 AM) Eosinophils [0.0-4.0 6.6 % %] *HI* (07/06/17 10:25 AM) Basophils [0.0-1.0 0.6 % %] (07/06/17 10:25 AM) Segs-Bands # 1.1 K/CMM [1.5-8.1 K/CMM] *LOW* (07/06/17 10:25 AM) Lymphocytes # 1.9 K/CMM [1.0-5.5 K/CMM] (07/06/17 10:25 AM) Monocytes # [0.0-0.8 0.4 K/CMM K/CMM] (07/06/17 10:25 AM) Eosinophils # 0.2 K/CMM [0.0-0.5 K/CMM] (07/06/17 10:25 AM) Immunizations No data available for this section Procedures Procedure Date Related Diagnosis Body Site Cystoscopy and removal of calculus of bladder Rotator cuff repair1 1x 2, Social History Social History Type Response Exercise 1 Alcohol Never Smoking Status Current every day smoker; Type: Hookah, 3-4 x day, for 15 years.; Exposure to Tobacco Smoke Self.; Cigarette Smoking Last 365 Days No; Reg Smoking Cessation Counseling No2 1States he jogs for ~ 1 hour, 3x week. denies dyspnea on mild exertion or with stairs. 2No cigarettes smoking, but Hookah for tobacco. Assessment and Plan No data available for this section
--- OUTSIDE RECORDS SUMMARY | 2018-07-06 08:38 | XMS REPORT ---
Author Author [facility] Address Unknown Phone Unavailable Care Team Providers Care Sueding Machine Tender Name Role Phone DARSHANA JAMISON Unavailable Unavailable Problems This patient has no known problems. Allergies, Adverse Reactions, Alerts This patient has no known allergies or adverse reactions. Medications This patient has no known medications. Results Test Description Test Time Test Comments Text Results Atomic Results Result Comments CHEST 2 VIEWS [place] [address] Patient Name: EPHRAIM ZARAGOZA MR #: [id number] : 1945 Age/Sex: 71/M Req #: [id number] Adm Physician: Ordered by: DARSHANA JAMISON MD Report #: [id number] Location: OR Room/Bed: Procedure: [id number] DX/CHEST 2 VIEWS Exam Date: 09/06/17 Exam Time: 1440 REPORT STATUS: Signed PROCEDURE: Frontal and lateral views of the chest. COMPARISON: Chest CT dated 08/06/16 INDICATIONS: PREOPERATIVE CHEST XRAY FOR PROSTATE BIOPSY FINDINGS: Lines/tubes: None. Lungs: The lungs are well inflated and clear. There is no evidence of pneumonia or pulmonary edema. Pleura: There is no pleural effusion or pneumothorax. Heart and mediastinum: The heart and the mediastinum are normal. Bones: No acute bony abnormality. IMPRESSION: 1. No acute cardiopulmonary disease. Dictated by: Jareth Quiros M.D. on 09/06/2017 at 15:18 Electronically approved by: Jareth Quiros M.D. on 09/06/2017 at 15:18 Dictated By: JARETH QUIROS MD [id number] Transcribed By: ILDA on 09/06/17 1518 COPY TO: DARSHANA JAMISON MD
--- OUTSIDE RECORDS SUMMARY | 2018-07-06 08:38 | XMS REPORT | Continuity of Care Document ---
Author Author [facility] Organization Interface Address Unknown Phone Unavailable Problems Problem Status Onset Date Classification Date Reported Comments Source MENISCUS TEAR Active 07/05/2017 [facility] MENISCUS TEAR Active 07/05/2017 [facility] Acute prostatitis Active Problem 07/11/2017 [facility] Anxiety Active Problem 07/11/2017 [facility] BPH (<span ID="[id number]">Confirmed</span>) Active Problem 07/11/2017 [facility] Acid reflux<sup>1</sup> Active Problem 07/11/2017 Occassionally [facility] Hypercholesterolemia Active Problem 07/11/2017 [facility] Hypertension<sup>2</sup> Active Problem 07/11/2017 HTN per Surgeon H & P; pt denies HTN, states "was put on the medication because of previous stroke." [facility] Kidney stone<sup>3</sup> Resolved Problem 07/11/2017 had a cystoscopy to remove. [facility] Stroke<sup>4</sup> Resolved Problem 07/11/2017 ~ 10 years ago; states no residual effects. [facility] COMPLEX TEAR OF MEDIAL MENSC, CURRENT IN Active [facility] UNILATERAL PRIMARY OSTEOARTHRITIS, LEFT Active [facility] Medications Medication Details Route Status Patient Instructions Ordering Provider Order Date Source Tramadol 50 mg, 1 tab, Route: PO, Drug form: TAB, Q6H, Dosing Weight 85.455, kg, PRN Pain Score 1-3, Start date: 07/08/17 14:18:00 PATHOLOGY LABORATORY DIRECTOR, Duration: 30 day, Stop date: 08/07/17 14:17:00 CSTNotes: Not to exceed 4 00mg/day. (Same As: Ultram) No Longer Active 07/08/2017 [facility] Morphine 2 mg, 0.2 mL, Route: IVP, Drug form: INJ, Q3H, Dosing Weight 85.455, kg, PRN Pain Score 1-3, Start date: 07/08/17 14:18:00 PATHOLOGY LABORATORY DIRECTOR, Duration: 30 day, Stop date: 08/07/17 14:17:00 CSTNotes: (Same as:MORPhine Sulfate) No Longer Active 07/08/2017 [facility] Hydromorphone 0.3 mg, 0.15 mL, Route: IVP, Drug form: INJ, Q3H, Dosing Weight 85.455, kg, PRN Pain Score 4-6, Start date: 07/08/17 14:18:00 PATHOLOGY LABORATORY DIRECTOR, Duration: 30 day, Stop date: 08/07/17 14:17:00 CSTNotes: Same as Dilaudid No Longer Active 07/08/2017 [facility] Acetaminophen 325 MG / Hydrocodone Bitartrate 10 MG Oral Tablet 1 tab, Route: PO, Drug Form: TAB, Dosing Weight 85.455, kg, Q4H, PRN Pain Score 4-6, Start date: 07/08/17 14:18:00 PATHOLOGY LABORATORY DIRECTOR, Duration: 30 day, Stop date: 08/07/17 14:17:00 CSTNotes: Do not exceed 4gm/day of acetaminophen. (Same as: [place] 325/10) No Longer Active 07/08/2017 [facility] Ancef 2 gm, Route: IVP, Drug form: PDR/INJ, ONCE, Dosing Weight 85.455, kg, Start date: 07/08/17 12:46:00 PATHOLOGY LABORATORY DIRECTOR, Stop date: 07/08/17 12:46:00 PATHOLOGY LABORATORY DIRECTOR, Surgical Prophylaxis Only; For patients Notes: (Same As: Evi Uribe) MEDICATION WASTE Product Size: 1000 mg Product Wasted: ___ mg Inactive 07/08/2017 [facility] Lactated Ringers IV 1,000 mL 1,000 mL, Rate: 40 ml/hr, Infuse over: 25 hr, Route: IV, Dosing Weight 85.455 kg, Total Volume: 1,000, Start date: 07/08/17 12:46:00 PATHOLOGY LABORATORY DIRECTOR, Duration: 30 day, Stop date: 08/07/17 12:45:00 PATHOLOGY LABORATORY DIRECTOR, 2.03, m2 No Longer Active 07/08/2017 [facility] Ondansetron 4 mg, 2 mL, Route: IVP, Drug form: INJ, ONCE, Dosing Weight 85.455, kg, PRN Nausea & Vomiting, Start date: 07/08/17 12:09:00 CSTNotes: (Same as: Zofran) MEDICATION WASTE Product Size: 4 mg Product Wasted: ___ mg Inactive 07/08/2017 [facility] Promethazine 6.25 mg, 0.25 mL, Route: IVPB, Drug form: INJ, ONCE, Dosing Weight 85.455, kg, PRN Nausea & Vomiting, Start date: 07/08/17 12:09:00 CSTNotes: Do not give IV push. (Same as: Phenergan) Inactive 07/08/2017 [facility] Hydralazine 10 mg, 0.5 mL, Route: IVP, Drug form: INJ, Q20Min, Dosing Weight 85.455, kg, PRN Elevated BP, Start date: 07/08/17 12:09:00 PATHOLOGY LABORATORY DIRECTOR, Duration: 2 doses or times, Stop date: Limited # of timesNotes: (Same as: Apresoline) Push over 5 minutes Inactive 07/08/2017 [facility] Labetalol 10 mg, 2 mL, Route: IVP, Drug form: INJ, Q5Min, Dosing Weight 85.455, kg, PRN Elevated BP, Start date: 07/08/17 12:09:00 PATHOLOGY LABORATORY DIRECTOR, Duration: 5 doses or times, Stop date: Limited # of times Inactive 07/08/2017 [facility] Hydromorphone 0.5 mg, 0.25 mL, Route: IVP, Drug form: INJ, Q5Min, Dosing Weight 85.455, kg, PRN Pain Score 7-10, Start date: 07/08/17 12:09:00 PATHOLOGY LABORATORY DIRECTOR, Duration: 4 doses or times, Stop date: Limited # of timesNotes: S harper as Dilaudid Inactive 07/08/2017 [facility] Vitamin C See Instructions, Unknown dose; 1 tab po Daily, 0 Refill(s) Active 07/05/2017 [facility] multivitamin Daily, 0 Refill(s) Active 07/05/2017 [facility] nitrofurantoin macrocrystals 100 mg oral capsule (Macrodantin) 100 mg=1 cap, PO, BID, # 40 cap, 0 Refill(s) Active 07/05/2017 [facility] Breo Ellipta 100 mcg-25 mcg inhalation powder 1 puff, INHALATION, Daily, 0 Refill(s) Active 07/05/2017 [facility] sildenafil 100 MG Oral Tablet [Viagra] 100 mg=1 tab, PO, Daily, PRN for erectile dysfunction, # 30 tab, 0 Refill(s) Active 07/05/2017 [facility] Esomeprazole 40 MG Enteric Coated Capsule [Nexium] 40 mg=1 cap, PO, Daily, # 30 cap, 0 Refill(s) Active 07/05/2017 [facility] Trazodone Hydrochloride 100 MG Oral Tablet See Instructions, 1-2 tablets PO Q day., 0 Refill(s) Active 07/05/2017 [facility] losartan 50 mg oral tablet 50 mg=1 tab, PO, Daily, HOLD DOS., # 30 tab, 0 Refill(s) Active 07/05/2017 [facility] Citalopram 40 MG Oral Tablet [Celexa] 40 mg=1 tab, PO, Daily, # 30 tab, 0 Refill(s) Active 07/05/2017 [facility] tamsulosin 0.4 mg oral capsule 0.4 mg=1 cap, PO, Daily, # 30 cap, 0 Refill(s) Active 07/05/2017 [facility] simvastatin 40 mg oral tablet 40 mg=1 tab, PO, Bedtime, # 30 tab, 5 Refill(s) Active 07/05/2017 [facility] Ketoconazole 20 MG/ML Topical Cream 1 appl, TOP, Daily, # 15 gm, 0 Refill(s) Active 07/05/2017 [facility] aspirin 81 mg tablet, enteric coated 81 mg=1 tab, PO, Daily, # 90 tab, 3 Refill(s) Active 07/05/2017 [facility] Allergies, Adverse Reactions, Alerts Substance Category Reaction Severity Reaction type Status Date Reported Comments Source Immunizations Immunization Date Given Site Status Last Updated Comments Source Results Order Name Results Value Reference Range Date Interpretation Comments Source ELECTROLYTES AGAP 10.5 meq/L 10.0 - 20.0 07/06/2017 [facility] ELECTROLYTES eGFR 75 mL/min/1.73m2 07/06/2017 Result Comment: The eGFR is calculated using the [...] from the National Kidney Disease Education Program (NKDEP) which additionally recommends that when the eGFR is used in patients with extremes of body mass index for purposes of drug dosing, the eGFR should be multiplied by the estimated BMI. [facility] ELECTROLYTES Calcium Lvl 8.8 mg/dL 8.5 - 10.5 07/06/2017 [facility] ELECTROLYTES Chloride Lvl 106 meq/L 95 - 109 07/06/2017 [facility] ELECTROLYTES Potassium Lvl 4.5 meq/L 3.5 - 5.1 07/06/2017 [facility] ELECTROLYTES CO2 28 meq/L 24 - 32 07/06/2017 [facility] ELECTROLYTES Sodium Lvl 140 meq/L 135 - 145 07/06/2017 [facility] ELECTROLYTES BUN 13 mg/dL 7 - 22 07/06/2017 [facility] ELECTROLYTES Glucose Lvl 91 mg/dL 70 - 99 07/06/2017 [facility] ELECTROLYTES Creatinine Lvl 1.00 mg/dL 0.50 - 1.40 07/06/2017 [facility] HEMATOLOGY Eosinophils # 0.2 K/CMM 0.0 - 0.5 07/06/2017 [facility] HEMATOLOGY Lymphocytes # 1.9 K/CMM 1.0 - 5.5 07/06/2017 [facility] HEMATOLOGY Monocytes # 0.4 K/CMM 0.0 - 0.8 07/06/2017 [facility] HEMATOLOGY Segs-Bands # 1.1 K/CMM 1.5 - 8.1 07/06/2017 [facility] HEMATOLOGY Monocytes 11.0 % 2.0 - 12.0 07/06/2017 [facility] HEMATOLOGY Basophils 0.6 % 0.0 - 1.0 07/06/2017 [facility] HEMATOLOGY Lymphocytes 52.2 % 20.0 - 40.0 07/06/2017 [facility] HEMATOLOGY Segs 29.6 % 45.0 - 75.0 07/06/2017 [facility] HEMATOLOGY Eosinophils 6.6 % 0.0 - 4.0 07/06/2017 [facility] HEMATOLOGY MPV 8.5 fL 7.4 - 10.4 07/06/2017 [facility] HEMATOLOGY RDW 13.9 % 11.5 - 14.5 07/06/2017 [facility] HEMATOLOGY Platelet 219 K/CMM 133 - 450 07/06/2017 [facility] HEMATOLOGY MCH 29.6 pg 27.0 - 31.0 07/06/2017 [facility] HEMATOLOGY MCHC 33.4 g/dL 32.0 - 36.0 07/06/2017 [facility] HEMATOLOGY Hgb 15.7 g/dL 14.0 - 18.0 07/06/2017 [facility] HEMATOLOGY Hct 47.1 % 42.0 - 54.0 07/06/2017 [facility] HEMATOLOGY MCV 88.6 fL 80.0 - 94.0 07/06/2017 [facility] HEMATOLOGY RBC 5.32 M/CMM 4.70 - 6.10 07/06/2017 [facility] HEMATOLOGY WBC 3.7 K/CMM 3.7 - 10.4 07/06/2017 [facility] Vital Signs Vital Sign Value Date Comments Source Respitory Rate 14 07/08/2017 [facility] Systolic (mm Hg) 140 07/08/2017 [facility] Diastolic (mm Hg) 85 07/08/2017 [facility] Respitory Rate 14 07/08/2017 [facility] Systolic (mm Hg) 133 07/08/2017 [facility] Diastolic (mm Hg) 91 07/08/2017 [facility] Respitory Rate 14 07/08/2017 [facility] Systolic (mm Hg) 133 07/08/2017 [facility] Diastolic (mm Hg) 87 07/08/2017 [facility] Heart Rate 68 07/08/2017 [facility] Temperature Oral (F) 97.9 F 07/08/2017 [facility] BMI Calculated 29.51 07/08/2017 [facility] Weight 85.455 07/08/2017 [facility] Heart Rate 64 07/06/2017 [facility] Temperature Oral (F) 97.9 F 07/06/2017 [facility] Height 170.18 cm 07/05/2017 [facility] Encounters Location Location Details Encounter Type Encounter Number Reason For Visit Attending Provider ADM Date DC Date Status Source [facility] [id number] Ayomarlene Roque 07/08/2017 07/09/2017 [facility] Procedures Procedure Code Date Perfomer Comments Source Cystoscopy and removal of calculus of bladder 899106007 [facility] Rotator cuff repair<sup>1</sup> [id number] x 2, [facility]
[2018-07-06] MEDS ORDERED: LEVOFLOXACIN 500MG/D5W 100ML 100 ML IV ONE (09:31)
[2018-07-06] MEDS ORDERED: HYOSCYAMINE 0.125 MG TAB ONE ×2 (09:31→13:12)
[2018-07-06] MEDS ORDERED: BELLADONNA/OPIUM 60 MG SUPP PR ONE (11:21)
[2018-07-06] MEDS ORDERED: IOPAMIDOL 610MG/1ML 300 MG/ML VIAL IV ONE (11:21)
[2018-07-06] MEDS ORDERED: SODIUM CHLORIDE 0.9% 1000ML 1,000 ML ONE (13:12)
[2018-07-06] MEDS ORDERED: FUROSEMIDE INJ 10 MG/ML 4 ML VIAL ONE (13:13)
[2018-07-06] MEDS ORDERED: FENTANYL CITRATE/PF 100MCG/2 ML INJ ONE ×2 (13:18→19:38)
[2018-07-06] MEDS ORDERED: MORPHINE SULFATE 2 MG/ML SYR ONE (13:57)
[2018-07-06] MEDS ORDERED: HYDROMORPHONE 2MG/ML 2 MG/ML ML ONE (14:07)
--- OUTSIDE RECORDS SUMMARY | 2018-07-06 14:23 | XMS REPORT | Clinical Summary ---
Author Author [facility] Organization [facility] Address Unknown Phone Unavailable Care Team Providers Care Glue Drier Operator Name Role Phone Carlos Peña DO PCP [...] by: ANGEL ESPINOZA Authorized by: MAINOR MIMS VT AN ELECTIVE Routine 02/15/2018 [employer] 12:57 [...] 47 seconds. 4 image(s). Performing Organization Address [facility] Phone Number [facility] [address] [place] [address] * ECG Pre/Post Op (02/10/2018 12:41 PM CDT) Ventricular rate 49 [facility] Atrial rate 49 [facility] VT interval 136 [facility] QRSD interval 130 [facility] QT interval 444 [facility] QTC interval 401 [facility] P axis 1 27 [facility] QRS axis 1 -49 [facility] T wave axis 31 [facility] EKG impression Marked sinus bradycardia-Right [facility] MUSE bundle branch block-Left anterior fascicular block-^^^ Bifascicular block ^^^-Possible Lateral infarct , age undetermined-Abnormal ECG-In automated comparison with ECG of 17-MAY-2013 16:37,-Vent. rate has decreased BY26 BPM-(RBBB and left anterior fascicular block) is now present- Performing Organization Address [facility] Phone Number [facility] MUSE [address] [place] [address] * Estimated GFR (02/10/2018 12:20 PM CDT) Only the most recent of 2 results within the time period is included. GFR Non Af Amer 73 mL/min/1.73 m2 [facility]IC[facility] GFR Af Amer 89 mL/min/1.73 m2 [facility] OF Comment: PATHOLOGY AND Chronic kidney [...] Americans. Specimen Plasma specimen Performing Organization Address City/[facility]/Zipcode Phone Number [phone] [place] [address] PATHOLOGY AND GENOMIC MEDICINE * CBC with platelet and differential (02/10/2018 12:20 PM CDT) WBC 4.3 4.2 - 11.0 k/uL [facility] AND GENOMIC MEDICINE RBC 4.96 4.04 - 5.86 m/uL [facility] PATHOLOGY AND GENOMIC MEDICINE HGB 14.8 13.0 - 17.3 g/dL [facility] PATHOLOGY AND GENOMIC MEDICINE HCT 45.8 (H) 34.0 - 45.0 % [facility] AND GENOMIC MEDICINE MCV 92.3 80.0 - 98.0 fL [facility] AND GENOMIC MEDICINE MCH 29.8 27.0 - 34.0 pg [facility]OLOGY AND GENOMIC MEDICINE MCHC 32.3 31.5 - 36.5 g/dL [facility]OLOGY AND GENOMIC MEDICINE RDW - SD 45.1 37.0 - 51.0 fL [facility]OLOGY AND GENOMIC MEDICINE MPV 10.1 7.4 - 10.4 fL [facility]Y AND GENOMIC MEDICINE Platelet count 206 150 - 400 k/uL [facility]OLOGY AND GENOMIC MEDICINE Nucleated RBC 0.00 /100 WBC [facility]OLOGY AND GENOMIC MEDICINE Neutrophils 48.3 36.0 - 66.0 % [facility]OLOGY AND GENOMIC MEDICINE Lymphocytes 38.2 24.0 - 44.0 % [facility]OLOGY AND GENOMIC MEDICINE Monocytes 9.3 (H) 0.0 - 6.0 % [facility] PATHOLOGY AND GENOMIC MEDICINE Eosinophils 3.5 0.0 - 6.0 % [facility] OF PATHOLOGY AND GENOMIC MEDICINE Basophils 0.5 0.0 - 1.2 % [facility] PATHOLOGY AND GENOMIC MEDICINE Immature granulocytes 0.2 0.0 - 1.0 % [facility] OF PATHOLOGY AND GENOMIC MEDICINE Specimen Blood Performing Organization Address City/State/Zipcode Phone Number [address] [place] [address] PATHOLOGY AND [facility] * Basic metabolic panel (02/10/2018 12:20 PM CDT) Only the most recent of 2 results within the time period is included. Sodium 142 135 - 150 mEq/L [facility]OLOGY AND [facility] MEDICINE Potassium 4.3 3.5 - 5.0 mEq/L [facility]OLOGY AND [facility] MEDICINE Chloride 104 98 - 112 mEq/L [facility] PATHOLOGY AND End[facility] MEDICINE CO2 27 24 - 31 mmol/L [facility] OF PATHOLOGY AND [facility] MEDICINE Anion gap 11@ANIO 7 - 15 mEq/L [facility] PATHOLOGY AND [facility] MEDICINE BUN 10 7 - 18 mg/dL [facility] PATHOLOGY AND [facility] MEDICINE Creatinine 1.00 0.70 - 1.20 mg/dL [facility] PATHOLOGY AND [facility] MEDICINE Glucose 89 65 - 100 mg/dL [facility] PATHOLOGY AND [facility] MEDICINE Calcium 9.8 8.8 - 10.2 mg/dL [facility] PATHOLOGY AND [facility] MEDICINE Specimen Plasma specimen Performing Organization Address City/[facility] Phone Number [address] [place] [address] PATHOLOGY [facility] Endorse [facility] * Prothrombin time with INR (01/11/2018 11:43 AM CDT) Prothrombin time 13.7 12.0 - 15.0 sec [facility] PATHOLOGY AND [facility] MEDICINE INR 1.04 0.92 - 1.12 [facility] Comment: PATHOLOGY AND For patients on anticoagulant GENOMIC MEDICINE therapy, reference ranges below: Indication: INR Value Treatment of Venous Thrombosis, 2.0-3.0 pulmonary emboli, or prophylaxis of a venous thrombosis, or systemic emboli. High dose, high risk patients 3.0-4.5 with mechanical valves. NOTE:INR values over 3.0 are sometimes associated with gastrointestinal hemorrhage, especially values over 4.0. Specimen Blood Performing Organization Address City/[facility] Phone Number [address] Endorse [facility] * CBC hemogram (01/11/2018 11:43 AM CDT) WBC 4.0 (L) 4.2 - 11.0 k/uL [facility] PATHOLOGY AND GENOMIC MEDICINE RBC 4.90 4.04 - 5.86 m/uL [facility]OLOGY AND GENOMIC MEDICINE HGB 14.4 13.0 - 17.3 g/dL [facility]OLOGY AND GENOMIC MEDICINE HCT 45.0 34.0 - 45.0 % [facility] OF PATHOLOGY AND GENOMIC MEDICINE MCV 91.8 80.0 - 98.0 fL [facility] PATHOLOGY AND GENOMIC MEDICINE MCH 29.4 27.0 - 34.0 pg [facility] PATHOLOGY AND GENOMIC MEDICINE MCHC 32.0 31.5 - 36.5 g/dL [facility] PATHOLOGY AND GENOMIC MEDICINE RDW - SD 48.1 37.0 - 51.0 fL [facility]OLOGY AND GENOMIC MEDICINE MPV 10.9 (H) 7.4 - 10.4 fL [facility]OLOGY AND GENOMIC MEDICINE Platelet count 171 150 - 400 k/uL [facility] PATHOLOGY AND GENOMIC MEDICINE Nucleated RBC 0.00 /100 WBC [facility]OLOGY AND GENOMIC MEDICINE Specimen Blood Performing Organization Address City/[facility]/Zipcode Phone Number [facility] [address] [place] [address] PATHOLOGY AND GENOMIC MEDICINE * Prostate specific antigen (01/11/2018 11:43 AM CDT) PSA 5.1 (H) 0.0 - 4.0 ng/mL [facility] DEPARTMENT OF Comment: PATHOLOGY AND The HAO 8000 PSA immunoassay [facility] was used. Results obtained with different assay methods or kits should not be used interchangeably and may be different. Specimen Plasma specimen Performing Organization Address City/[facility]/Zipcode Phone Number [facility] DEPARTMENT OF [address] [place] [address] PATHOLOGY AND GENOMIC MEDICINE * US Prostate [...] seen within the prostate. Performing Organization Address City/State/[facility] Cent[facility] Phone Number [facility] [address] [place] [address] after 07/05/2017 Insurance Payer Benefit Subscriber ID Type Phone Address Plan / Group MEDICARE MEDICARE xxxxxxxxxx Medicare [place], [place] PART A AND B [employer] [place] [employer] x[employer] [place] Advance Directives Patient has advance care planning documents on file. For more information, eduardo e contact: Brown Michelle [address] [place] [address]
[2018-07-06] MEDS ORDERED: SODIUM CHLORIDE 0.9% 1000ML 1,000 ML IV SCH (15:15)
[2018-07-06] MEDS ORDERED: HYDROMORPHONE 1MG/1ML INJ IV PRN (15:15)
[2018-07-06] MEDS ORDERED: ONDANSETRON HCL INJ 2 MG/ML VIAL IV PRN (15:15)
--- NOTE | 2018-07-06 15:29 | Operative Report ---
DATE OF PROCEDURE: July 06, 2018 PREOPERATIVE DIAGNOSIS: Benign prostatic hypertrophy. POSTOPERATIVE DIAGNOSIS: Benign prostatic hypertrophy. OPERATIONS PERFORMED 1. Cystourethroscopy. 2. Transurethral resection of the prostate laser XPS. BRAKER PASSENGER TRAIN: Dr. Tabares. ANESTHETIC: General. Mr. Garcia is a 72-year-old male who presented with a chief complaint of increasing lower urinary tract obstructive symptoms. His PSA was elevated, and he had multiple prostatic needle biopsies earlier in the year by Dr. Nicolas, which were all benign but showed chronic prostatitis. He was treated with antibiotic for 6 weeks and then brought at this time for cystourethroscopy and TURP laser. This patient was placed on the table in the lithotomy position and was prepped and draped in a sterile manner after satisfactory anesthesia. A number 23.5 cystoresectoscope was used, and cystourethroscopy was performed and confirmed the previous cystoscopic findings. The XPS laser scope generator was then started, starting at 120 chao vaporization level and 40 chao coagulation level. Vaporization of the prostate was then started, starting with the median lobe that was vaporized and flattened to the level of the floor of the prostatic fossa. Hemostasis was obtained all through and was very adequate. Vaporization was then started, starting from 5 to 1 o'clock, starting at the bladder neck to just proximal to the verumontanum and down to the capsular fibers. Again hemostasis was obtained all through and was very adequate. Vaporization was then started again, starting at 11 to 7 o'clock, starting at the bladder neck to just proximal to the verumontanum and again down to the capsular fibers. Again hemostasis was very adequate. At the termination of the procedure, hemostasis was very adequate. The bladder mucosa, both ureteral orifices and the external sphincter were intact without laser energy damage. The laser scope generator was shut down. The cystoresectoscope was removed, and a number 22-Kinyarwanda Hand catheter was placed on mild traction. Estimated blood loss was 0 mL. Job#: [id number]
[2018-07-06] MEDS: HYDROMORPHONE 2MG/ML 2 MG/ML ML IV PRN ×2 (15:30→23:00)
[2018-07-06 15:48] VITALS: BP 143/76
[2018-07-06] MEDS ORDERED: SUCCINYLCHOLINE 200 MG/10 ML SYR ONE (17:39)
[2018-07-06] MEDS ORDERED: ONDANSETRON HCL INJ 2 MG/ML VIAL ONE (17:39)
[2018-07-06] MEDS ORDERED: EPHEDRINE SULFATE INJ 50 MG/10 ML SYR ONE (17:39)
[2018-07-06] MEDS ORDERED: PROPOFOL IV EMULSION 10 MG/ML 20 ML VIAL ONE (17:39)
[2018-07-06] MEDS ORDERED: DEXAMETHASONE SOD PHOS INJ 4 MG/ML VIAL ONE (17:39)
[2018-07-06] MEDS ORDERED: SEVOFLURANE INHAL SOLN 250 ML PEN BTL ONE (17:39)
[2018-07-06] MEDS ORDERED: LIDOCAINE HCL 2% LOCAL INJ 5 ML SDV VIAL INJ ONE (17:39)
[2018-07-06] MEDS ORDERED: MIDAZOLAM HCL 2 MG/2 ML VIAL ONE (19:38)
[2018-07-06 20:00] VITALS: BP 132/76
[2018-07-06] MEDS ORDERED: LEVOFLOXACIN 500MG/D5W 100ML 100 ML IV SCH (20:00)
[2018-07-06 20:15] VITALS: BP 143/76
[2018-07-06] MEDS ORDERED: SIMVASTATIN 40 MG TAB PO SCH (21:00)
[2018-07-06] MEDS ORDERED: TRAZODONE HCL 50 MG TAB PO SCH (21:00)
[2018-07-06] MEDS ORDERED: TAMSULOSIN HCL 0.4 MG CAP PO SCH (21:00)
[2018-07-07] VITALS: BP 121/72
[2018-07-07 04:00] VITALS: BP 116/69
[2018-07-07 05:49] LABS: BASOPHILS % 0.1 % (0.0-1.0); EOSINOPHILS % 0.1 % (0.0-6.0); HEMATOCRIT 42.4 % (38.2-49.6); HEMOGLOBIN 14.4 g/dL (14.0-18.0); LYMPHOCYTES # (AUTO) 1.4 (1.0-3.2); MEAN CORPUSCULAR HEMOGLOBIN 30.4 pg (28-32); MEAN CORPUSCULAR VOLUME 89.5 fL (81-99); MONOCYTES # (AUTO) 0.6 (0.2-0.8); MONOCYTES % 4.4 % (4.4-11.3); NEUTROPHILS # (AUTO) 11.7 (2.1-6.9); NEUTROPHILS % 84.7 % (38.7-80.0); PLATELET COUNT 218 x10e3/uL (140-360); RED BLOOD COUNT 4.74 x10e6/uL (4.3-5.7); RED CELL DISTRIBUTION WIDTH 12.9 % (11.7-14.4)
[2018-07-07 06:23] LABS: ANION GAP 13.4 mmol/L (8-16); BLOOD UREA NITROGEN 14 mg/dL (7-26); BUN/CREATININE RATIO 14 (6-25); CALCIUM 9.1 mg/dL (8.4-10.2); CARBON DIOXIDE 26 mmol/L (22-29); CHLORIDE 100 mmol/L (98-107); CREATININE, SERUM 0.97 mg/dL (0.72-1.25); EST GLOMERULAR FILTRATION RATE > 60 ML/MIN (60-); GLUCOSE 123 mg/dL (74-118); POTASSIUM 4.4 mmol/L (3.5-5.1); SODIUM 135 mmol/L (136-145)
[2018-07-07 07:51] VITALS: BP 113/64
[2018-07-07] MEDS ORDERED: LOSARTAN POTASSIUM 25 MG TAB PO SCH (09:00)
[2018-07-07] MEDS ORDERED: SIMVASTATIN 40 MG TAB PO SCH (09:00)
[2018-07-07] MEDS ORDERED: NON-FORMULARY MEDICATION (Losartan Potassium 50 MG) PO SCH (09:00)
[2018-07-07] MEDS: HYDROMORPHONE 2MG/ML 2 MG/ML ML IV PRN (09:50)
[2018-07-07 11:32] VITALS: BP 112/66
== END 2018-07-07 14:31 | disposition home or self-care (01) ==
LOC: OR 08:34 → PACU V 13:53 → IMCU 14:32
PROVIDERS: ADMIT Specialist; ATTEND Specialist
DX: N40.1 Benign prostatic hyperplasia with lower urinary tract symptoms (principal); N13.8 Other obstructive and reflux uropathy; N41.1 Chronic prostatitis; I10 Essential (primary) hypertension; Z87.442 Personal history of urinary calculi; Z01.810 Encounter for preprocedural cardiovascular examination; Z01.812 Encounter for preprocedural laboratory examination
CPT/HCPCS: 36415 ×2; 52648; 80048 ×2; 85025 ×2; 85610; 93005; G0378 ×2; J1100; J1170 ×2; J1940; J1956; J2001; J2250; J2270; J2405; J2704; J7030

== ENCOUNTER → 2018-09-30 | Outpatient (CLI) | payer MEDICARE, OTHER ==
[~2018-09-30] MED LIST changes: +IOPAMIDOL 370 MG/ML 200 ML INFUS..BTL INJ ONE; +SODIUM CHLORIDE 0.9% 50ML 50 ML ONE
[2018-09-30 08:18] LABS: BASOPHILS % 0.7 % (0.0-1.0); EOSINOPHILS # (AUTO) 0.1 (0.0-0.4); EOSINOPHILS % 2.8 % (0.0-6.0); HEMATOCRIT 41.2 % (38.2-49.6); HEMOGLOBIN 13.6 g/dL (14.0-18.0); LYMPHOCYTES # (AUTO) 1.6 (1.0-3.2); LYMPHOCYTES % 34.5 % (18.0-39.1); MEAN CORPUSCULAR HEMOGLOBIN 29.5 pg (28-32); MEAN CORPUSCULAR VOLUME 89.4 fL (81-99); MONOCYTES # (AUTO) 0.4 (0.2-0.8); MONOCYTES % 9.3 % (4.4-11.3); NEUTROPHILS # (AUTO) 2.4 (2.1-6.9); NEUTROPHILS % 51.4 % (38.7-80.0); PLATELET COUNT 251 x10e3/uL (140-360); RED BLOOD COUNT 4.61 x10e6/uL (4.3-5.7); RED CELL DISTRIBUTION WIDTH 13.3 % (11.7-14.4)
[2018-09-30 08:33] LABS: ANION GAP 13.3 mmol/L (8-16); BLOOD UREA NITROGEN 10 mg/dL (7-26); BUN/CREATININE RATIO 10 (6-25); CALCIUM 9.6 mg/dL (8.4-10.2); CARBON DIOXIDE 25 mmol/L (22-29); CHLORIDE 105 mmol/L (98-107); CREATININE, SERUM 1.02 mg/dL (0.72-1.25); EST GLOMERULAR FILTRATION RATE > 60 ML/MIN (60-); GLUCOSE 91 mg/dL (74-118); POTASSIUM 4.3 mmol/L (3.5-5.1); SODIUM 139 mmol/L (136-145)
--- NOTE | 2018-09-30 10:03 | Diagnostic Imaging Report ---
EXAM: CT Abdomen and Pelvis WITH contrast INDICATION: Abdominal, pelvic pain COMPARISON: CT abdomen/pelvis, 08/18/2018 TECHNIQUE: Abdomen and pelvis were scanned utilizing a multidetector helical scanner from the lung base to the pubic symphysis after administration of IV contrast. Coronal and sagittal reformations were obtained. Routine protocol was performed. Scan was performed when during portal venous phase. Dose modulation, iterative reconstruction, and/or weight based adjustment of the mA/kV was utilized to reduce the radiation dose to as low as reasonably achievable. IV CONTRAST: 100 mL of Isovue-370 ORAL CONTRAST: 900 cc water RADIATION DOSE: Total DLP: 447.07 mGy*cm Estimated effective dose: (DLP x 0.015 x size factor) mSv COMPLICATIONS: None FINDINGS: LINES and TUBES: None. LOWER THORAX: Lung bases clear with minimal dependent lower lobe atelectasis. Stable nonspecific 3 mm nodule in the lateral right middle lobe (image 1). Heart size normal. HEPATOBILIARY: Diffuse low-density of the liver compatible with steatosis. No focal hepatic lesions. No biliary ductal dilation. GALLBLADDER: No radio-opaque stones or sludge. No wall thickening. SPLEEN: No splenomegaly. PANCREAS: No focal masses or ductal dilatation. ADRENALS: No adrenal nodules KIDNEYS/URETERS: Kidneys enhance symmetrically. No hydronephrosis. Stable 5.0 cm cyst lateral aspect right mid kidney. No enhancing solid masses. Nonobstructing intrarenal calculi on the left again noted measuring 3 and 4 mm in the midportion of the left kidney and punctate, 1 to 2 mm, in the midportion of the left kidney. GI TRACT: No abnormal distention, wall thickening, or evidence of bowel obstruction. Sigmoid diverticulosis with no CT evidence for acute diverticulitis. Appendix is normal. PELVIC ORGANS/BLADDER: There is mild wall thickening of the urinary bladder, less prominent than on the previous exam. Prostate calcifications are noted. No discrete abnormal mass or fluid collection in the pelvis. LYMPH NODES: No dominant lymph node mass is seen in the abdomen, retroperitoneum or pelvis. VESSELS: Abdominal aorta is atherosclerotic with extensive calcified plaque. There is stable aneurysmal dilatation of the infrarenal aorta measuring 3.5 cm diameter. 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 IVC and portal system unremarkable. PERITONEUM / RETROPERITONEUM: No pneumoperitoneum or ascites. BONES: No acute or suspicious bony lesions. SOFT TISSUES: Superficial surrounding soft tissue unremarkable. Fat stranding in the right gluteal region has resolved. IMPRESSION: 1. Mild bladder wall thickening that appears less prominent than previous exam. 2. Stable nonobstructing punctate intrarenal calculi on the left. No hydronephrosis. 3. 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 4. Stable 3 mm nonspecific nodule in the right middle lobe. Recommend noncontrast chest CT in one year to assess stability. Staff: Angelique Signed by: Dr. Julián Merino M.D. on 09/30/2018 10:00 AM
== END ==
LOC: CT 07:42
PROVIDERS: ATTEND Specialist
DX: R10.2 Pelvic and perineal pain (principal); R10.30 Lower abdominal pain, unspecified; N30.00 Acute cystitis without hematuria
CPT/HCPCS: 36415; 74177; 80048; 85025; Q9967

== ENCOUNTER 2018-10-25 12:08 | Inpatient (IN) | payer MEDICARE, OTHER ==
[~2018-10-25] VITALS: Ht 170.2 cm; Wt 79.4 kg
[~2018-10-25 12:08] MED LIST changes: -IOPAMIDOL 370 MG/ML 200 ML INFUS..BTL INJ ONE; +MEROPENEM 1GM 100 ML IV SCH; -SODIUM CHLORIDE 0.9% 50ML 50 ML ONE
--- OUTSIDE RECORDS SUMMARY | 2018-10-25 12:12 | XMS REPORT | Clinical Summary ---
Author Author [facility] Address Unknown Phone Unavailable Care Team Providers Care Freezing Machine Operator Name Role Phone Carlos Peña DO PCP Allergies No Known Allergies Medications End Date Status Medication Sig Dispensed Refills Start Date Active tamsulosin (FLOMAX) 0.4 TAKE ONE (1) 3 mg capsule,extended CAPSULE(S) BY 8 release 24hr MOUTH DAILY. Active simvastatin (ZOCOR) 40 MG Take 40 mg by 0 tablet mouth nightly. Active multivitamin (THERAGRAN) Take 1 tablet 0 tablet by mouth daily. Active ascorbic acid, vitamin C, Take 500 mg 0 (VITAMIN C) 500 MG tablet by mouth daily. Active losartan (COZAAR) 50 MG Daily 0 tablet Active traZODone (DESYREL) 50 MG Take 50 mg by 0 tablet mouth nightly. 11/06/2018 Active meloxicam (MOBIC) 7.5 mg Take 2 60 tablet 0 tablet tablets (15 9 mg total) by mouth daily for 30 days. 07/12/2018 Discontinued losartan (COZAAR) 50 MG Take 50 mg by 0 tablet mouth daily. 07/12/2018 Discontinued traZODone (DESYREL) 100 Take 100 mg 0 MG tablet by mouth nightly. 07/17/2018 HYDROcodone-acetaminophen Take 1 tablet 20 tablet 0 (NORCO) 5-325 mg per by mouth 8 tablet every 6 (six) hours as needed for severe pain for up to 5 days. Max Daily Amount: 4 tablets 07/22/2018 ALPRAZolam (XANAX) 0.25 Take 1 tablet 30 tablet 0 MG tablet (0.25 mg 8 total) by mouth 3 (three) times a day as needed for anxiety for up to 10 days. 07/22/2018 levoFLOXacin (LEVAQUIN) Take 1 tablet 10 tablet 0 500 MG tablet (500 mg 8 total) by mouth daily for 10 days. 10/07/2018 Discontinued simvastatin (ZOCOR) 40 MG Daily 0 tablet 10/17/2018 predniSONE (DELTASONE) 10 Take 1 tablet 10 tablet 0 mg tablet (10 mg total) 9 by mouth daily for 10 days. 10/17/2018 cefuroxime (CEFTIN) 500 Take 1 tablet 20 tablet 0 MG tablet (500 mg 9 total) by mouth 2 (two) times a day for 10 days. Active Problems Problem Noted Date Prostatitis 10/04/2018 Urinary tract infection 07/07/2018 Encounters Care Team Description Date Type Specialty Darwin Fernando MD 10/13/2018 Documentation Oncology Ruben Seth MD CYSTOSCOPY 10/04/2018 Surgery General Surgery Brenna Cummins MD 10/04/2018 Anesthesia General Surgery Event Violet Newsome DO Okuwobi, Olukayode Olatilewa, MD Urinary tract infection without hematuria, site unspecified (Primary Dx); Pelvic pain; Prostatic obstruction; Acute midline low back pain without sciatica; Urinary tract infection; Back pain; Benign prostatic hyperplasia with urinary obstruction 10/03/2018 Hospital General Surgery - Encounter 10/07/2018 Herminio Dick MD Joglekar, Swati, MD Abouelseoud, Tanseem Hamad Mohamed A, MD Sepsis, due to unspecified organism (HCC) (Primary Dx); Urinary tract infection with hematuria, site unspecified 07/07/2018 [facility] General Internal Medicine - Encounter 07/12/2018 Ruben Seth MD Cysto Retrograde-Bilateral 02/15/2018 Surgery General Surgery Mainor Mims MD 02/15/2018 Anesthesia General Surgery Event Ruben Seth MD 02/15/2018 [facility] General Surgery Encounter Ruben Seth MD Preoperative testing (Primary Dx) 02/10/2018 Pre-Admit Pre-Admission Testing Testing Appointment Ruben Seth MD Benign localized hyperplasia of prostate with urinary retention 01/11/2018 Hospital Radiology Encounter Ruben Seth MD Benign localized hyperplasia of prostate with urinary retention (Primary Dx) 12/27/2017 Transcribe Access Orders after 10/24/2017 Immunizations Name Dates Previously Given Next Due FLUCELVAX QUAD PF (0.5mL 07/12/2018 syringe) Pneumococcal Conjugate 07/12/2018 13-Valent Family History Medical History Relation Name Comments No Known Problems Father No Known Problems Mother Relation Name Status Comments Father Mother Social History Date Tobacco Use Types Packs/Day Years Used Current Every Day Smoker 3 Smokeless Tobacco: Never Used Comments: HOOKA Alcohol Use Drinks/Week oz/Week Comments No Sex Assigned at Date Recorded Not on file Industry Job Start Date Occupation Not on file Not on file Not on file Travel End Travel History Travel Start No recent travel history available. Last Filed Vital Signs Time Taken Vital Sign Reading 10/07/2018 4:04 PM [facility] Blood Pressure 130/74 10/07/2018 4:04 PM [employer] Pulse 62 10/07/2018 4:04 PM [employer] Temperature 36.1 C (97 F) 10/07/2018 4:04 PM [employer] Respiratory Rate 19 10/07/2018 4:04 PM [employer] Oxygen Saturation 95% - Inhaled Oxygen - Concentration 10/03/2018 12:17 PM [employer] TE[employer] Weight 76.2 kg (168 lb) 10/03/2018 12:17 PM [employer] TE[employer] Height 170.2 cm (5' 7") 10/03/2018 12:17 PM [employer] TE[employer] Body Mass Index 26.31 Plan of Treatment Health Maintenance Due Date Last Done Comments COLON CANCER SCREENING 12/08/1995 SHINGLES VACCINES (#1) 12/08/1995 PNEUMOCOCCAL 2010 POLYSACCHARIDE VACCINE AGE 65 AND OVER 65+ PNEUMOCOCCAL VACCINE 07/12/2019 07/12/2018 (2 of 2 - PPSV23) INFLUENZA VACCINE Completed 07/12/2018 Procedures Comments Procedure Name Priority Date/Time Associated Diagnosis NM BONE SCAN WHOLE BODY Routine 10/07/2018 3:51 PM [employer] TE[employer] XR HIP 2-3 VIEWS RIGHT Routine 10/07/2018 1:32 PM [employer]ATE TE[employer]ER US DUPLEX VENOUS LOWER Routine 10/07/2018 EXTREMITY BILATERAL 10:37 AM [employer]ATE TE[employer]ER MRI PELVIS W WO CONTRAST Routine 10/06/2018 5:[address] ABDOMEN PELVIS W Routine 10/06/2018 CONTRAST 5:35 PM [employer] TE[employer] ESTIMATED GFR Routine 10/06/2018 5:53 AM [employer]ATE TEACHER BASIC METABOLIC PANEL Routine 10/06/2018 5:53 AM [employer] TE[employer]ER HC COMPLETE BLD COUNT Routine 10/06/2018 W/AUTO DIFF 5:53 AM [employer] TE[employer] ESTIMATED GFR Routine 10/05/2018 5:18 AM [employer] TE[employer] BASIC METABOLIC PANEL Routine 10/05/2018 5:18 AM [employer] TE[employer] HC COMPLETE BLD COUNT Routine 10/05/2018 W/AUTO DIFF 5:18 AM [employer] TE[employer]ER SURGICAL PATHOLOGY Routine 10/04/2018 REQUEST 1:48 PM [employer]ARATE TEACHER CA AN ELECTIVE Routine 10/04/2018 SUPRAGLOTTIC AIRWAY 11:07 AM [employer]ATE TE[employer]ER Procedure Note - Bhavik Burt CRNA - 10/04/2018 11:07 AM [facility] TE[employer]ER Airway Date/Time: 10/04/2018 11:02 AM Performed by: Bhavik Burt CRNA Authorized by: Brenna Cummins MD Location: OR Urgency: Elective Difficult Airway: No Anesthesio logist: Brenna Cummins MD Resident/C RNA/AA: Bhavik Burt CRNA Performed by: resident/C RNA/AA Preoxygena brenton with 100% O2: Yes C-spine Precaution s Maintained Throughout : Yes Mask Ventilatio n: Not attempted Final Airway Type: Supraglott ic airway Final LMA: Classic LMA Size: 4 Number of Attempts at Approach: 1 ESTIMATED GFR Routine 10/04/2018 6:13 AM [employer] TE[employer] COMPREHENSIVE METABOLIC Routine 10/04/2018 PANEL 6:13 AM [employer]ATE TE[employer]ER PROTHROMBIN TIME WITH INR Routine 10/04/2018 6:13 AM [employer]ARATE TEACHER HC COMPLETE BLD COUNT Routine 10/04/2018 W/AUTO DIFF 6:13 AM [employer] TE[employer]ER URINE CULTURE STAT 10/03/2018 6:01 PM [employer]ATE TEACHER GRAM STAIN STAT 10/03/2018 6:01 PM [employer] TE[employer] URINALYSIS SCREEN AND STAT 10/03/2018 MICROSCOPY, WITH REFLEX 5:27 PM [employer] TEACHER TO CULTURE XR CHEST 1 VW PORTABLE STAT 10/03/2018 3:42 PM [employer]ARATE TEACHER TYPE AND SCREEN Routine 10/03/2018 3:30 PM [employer]ARATE TEACHER PARTIAL THROMBOPLASTIN STAT 10/03/2018 TIME (PTT) 3:30 PM KARATE TEACHER PROTHROMBIN TIME WITH INR STAT 10/03/2018 3:30 PM KARATE TEACHER HC COMPLETE BLD COUNT STAT 10/03/2018 W/AUTO DIFF 3:30 PM KARATE TEACHER ECG ED PRELIMINARY Routine 10/03/2018 INTERPRETATION 3:08 PM [employer] TE[employer]ER MRI LUMBAR SPINE WO STAT 10/03/2018 CONTRAST 3:08 PM [employer] TE[employer] ECG 12-LEAD STAT 10/03/2018 1:54 PM [employer] TE[employer] POC GLUCOSE Routine 07/11/2018 11:40 AM [employer]ATE TE[employer]ER ESTIMATED GFR Routine 07/11/2018 8:40 AM [employer] TE[employer]ER COMPREHENSIVE METABOLIC Routine 07/11/2018 PANEL 8:40 AM [employer] TEACHER HC COMPLETE BLD COUNT Routine 07/11/2018 W/AUTO DIFF 8:40 AM [employer]ATE TE[employer]ER ECHOCARDIOGRAM 2D Routine 07/09/2018 COMPLETE W MMODE SPECTRAL 8:57 PM [employer] TE[employer] COLOR DOPPLER ([id number]) ARTERIAL BLOOD GAS STAT 07/09/2018 7:29 PM [employer]ARATE TEACHER ECG 12-LEAD STAT 07/09/2018 7:09 PM [employer]ATE TE[employer]ER BLOOD CULTURE, AEROBIC & Routine 07/09/2018 ANAEROBIC 7:03 PM [employer] TE[employer]ER C-REACTIVE PROTEIN STAT 07/09/2018 6:59 PM [employer]ARATE TEACHER ESTIMATED GFR STAT 07/09/2018 6:59 PM [employer]ARATE TEACHER LIPASE LEVEL STAT 07/09/2018 6:59 PM [employer]ARATE TEACHER PHOSPHORUS LEVEL STAT 07/09/2018 6:59 PM [employer]ATE TEACHER PROCALCITONIN STAT 07/09/2018 6:59 PM KARATE TEACHER PROTHROMBIN TIME WITH INR STAT 07/09/2018 6:59 PM [employer]ARATE TEACHER PARTIAL THROMBOPLASTIN STAT 07/09/2018 TIME (PTT) 6:59 PM [employer]ARATE TEACHER MAGNESIUM LEVEL STAT 07/09/2018 6:59 PM [employer]ARATE TEACHER CREATINE KINASE, TOTAL STAT 07/09/2018 (CPK) 6:59 PM KARATE TEACHER TROPONIN STAT 07/09/2018 6:59 PM [employer]ATE TE[employer]ER THYROID STIMULATING STAT 07/09/2018 HORMONE 6:59 PM [employer] TE[employer]ER T4, FREE STAT 07/09/2018 6:59 PM [employer] TE[employer]ER LACTIC ACID LEVEL STAT 07/09/2018 6:59 PM [employer] TE[employer]ER IONIZED CALCIUM STAT 07/09/2018 6:59 PM [employer] TE[employer]ER COMPREHENSIVE METABOLIC STAT 07/09/2018 PANEL 6:59 PM [employer] TE[employer]ER HC COMPLETE BLD COUNT STAT 07/09/2018 W/AUTO DIFF 6:59 PM [employer]ARATE TEACHER B NATRIURETIC PEPTIDE STAT 07/09/2018 6:59 PM [employer] TE[employer]ER BLOOD CULTURE, AEROBIC & Routine 07/09/2018 ANAEROBIC 6:59 PM [employer]ATE TE[employer]ER XR CHEST 1 VW PORTABLE STAT 07/09/2018 6:52 PM [employer] TE[employer]ER POC GLUCOSE Routine 07/09/2018 6:06 PM [employer] TE[employer]ER GRAM STAIN Routine 07/08/2018 5:10 PM [employer] TE[employer]ER RESPIRATORY CULTURE Routine 07/08/2018 5:[address] ABDOMEN PELVIS W WO STAT 07/08/2018 CONTRAST 10:28 AM KARATE TEACHER ESTIMATED GFR Routine 07/08/2018 9:31 AM [employer]ATE TEACHER BASIC METABOLIC PANEL Routine 07/08/2018 9:31 AM [employer] TE[employer]ER HC COMPLETE BLD COUNT Routine 07/08/2018 W/AUTO DIFF 9:31 AM [employer]ATE TEACHER VENOUS BLOOD GAS Routine 07/08/2018 6:14 AM [employer] TE[employer]ER ECG 12-LEAD STAT 07/08/2018 5:55 AM [employer]ATE TEACHER TROPONIN Timed 07/08/2018 3:44 AM [employer]ATE TEACHER LACTIC ACID LEVEL, SEPSIS Timed 07/08/2018 - NOW AND REPEAT 2X EVERY 3:44 AM [employer]ATE TEACHER [address] ANGIOGRAM PE CHEST STAT 07/08/2018 12:24 AM [employer]ARATE TEACHER TROPONIN Timed 07/08/2018 12:19 AM [employer]ARATE TEACHER LACTIC ACID LEVEL, SEPSIS Timed 07/08/2018 - NOW AND REPEAT 2X EVERY 12:19 AM KARATE TEACHER 3 HOURS ECG 12-LEAD STAT 07/08/2018 12:02 AM [employer] TE[employer]ER CONSULT TO SEPSIS Routine 07/07/2018 Sepsis, due to RESPONSE TEAM 9:38 PM KARATE TEACHER unspecified organism (HCC) BLOOD CULTURE, AEROBIC & Routine 07/07/2018 ANAEROBIC 8:51 PM [employer]ATE TEACHER ECG ED PRELIMINARY Routine 07/07/2018 INTERPRETATION 8:49 PM KARATE TEACHER CA CRITICAL CARE, E/M Routine 07/07/2018 30-74 MINUTES 8:49 PM [employer]ATE TEACHER URINALYSIS SCREEN AND STAT 07/07/2018 MICROSCOPY, WITH REFLEX 8:43 PM [employer]ATE TEACHER TO CULTURE GRAM STAIN STAT 07/07/2018 8:43 PM [employer] TEACHER URINE CULTURE STAT 07/07/2018 8:43 PM [employer]ARATE TEACHER ESTIMATED GFR STAT 07/07/2018 8:38 PM KARATE TEACHER B NATRIURETIC PEPTIDE STAT 07/07/2018 8:38 PM [employer]ATE TEACHER TROPONIN STAT 07/07/2018 8:38 PM [employer]ARATE TEACHER LIPASE LEVEL STAT 07/07/2018 8:38 PM [employer]ARATE TEACHER LACTIC ACID LEVEL, SEPSIS STAT 07/07/2018 - NOW AND REPEAT 2X EVERY 8:38 PM [employer]ARATE TEACHER 3 HOURS HEPATIC FUNCTION PANEL STAT 07/07/2018 8:38 PM [employer]ARATE TEACHER BASIC METABOLIC PANEL STAT 07/07/2018 8:38 PM KARATE TEACHER HC COMPLETE BLD COUNT STAT 07/07/2018 W/AUTO DIFF 8:38 PM KARATE TEACHER ECG 12-LEAD STAT 07/07/2018 8:37 PM [employer]ATE TEACHER BLOOD CULTURE, AEROBIC & Routine 07/07/2018 ANAEROBIC 8:35 PM [employer]ARATE TEACHER XR CHEST 1 VW PORTABLE STAT 07/07/2018 8:32 PM KARATE TEACHER FL PYELOGRAM RETROGRADE Routine 02/15/2018 2:31 PM CDT ANESTHESIA INTUBATION Routine 02/15/2018 1:02 PM CDT Procedure Note - Angel Alvarez CRNA - 02/15/2018 1:02 PM CDT Airway Performed by: ANGEL ALVAREZ Authorized by: MAINOR MIMS ELECTIVE Routine 02/15/2018 SUPRAGLOTTIC AIRWAY 12:57 PM CDT Procedure Note - Angel Alvarez, LUPIS - 02/15/2018 12:57 PM CDT Airway Date/Time: 02/15/2018 12:48 PM Performed by: ANGEL ALVAREZ Authorized by: MAINOR MIMS Location: OR Urgency: Elective Difficult Airway: No Resident/C RNA/AA: ANGEL ALVAREZ Performed by: resident/C RNA/AA Preoxygena brenton with [...] hyperplasia of prostate with urinary retention after 10/24/2017 Results * NM Bone Scan Whole Body (10/07/2018 3:51 PM KARATE TEACHER) Narrative Performed At Procedure:NM BONE SCAN WHOLE BODY [facility] REFERRING PHYSICIAN:RUBEN SETH HISTORY:severe pain right perineumpelvic area and hip COMPARISON: None TECHNIQUE: Following intravenous injection of approximately 25.3mCi of technetium 99m tagged MDP in the right handregion, whole-body bone scan was acquired. FINDINGS: No abnormal radiotracer is seen of the axial skeleton or appendicular skeleton. Normal radiotracer uptake and excretion of the kidneys and bladder are noted. Normal soft tissue uptake is seen IMPRESSION: Negative whole-body bone scan exam. [id number] Procedure Note Interface, Radiology Results Incoming - 10/07/2018 4:52 PM KARATE TEACHER Procedure:NM BONE SCAN WHOLE BODY REFERRING PHYSICIAN:RUBEN SETH HISTORY:severe pain right perineum pelvic area and hip COMPARISON: None TECHNIQUE: Following intravenous injection of approximately 25.3mCi of technetium 99m tagged MDP in the right handregion, whole-body bone scan was acquired. FINDINGS: No abnormal radiotracer is seen of the axial skeleton or appendicular skeleton. Normal radiotracer uptake and excretion of the kidneys and bladder are noted. Normal soft tissue uptake is seen IMPRESSION: Negative whole-body bone scan exam. [id number] Performing Organization Address City/State/Zipcode Phone Number [facility] [address] [place] [address] * XR Hip 2-3 View Right (10/07/2018 1:32 PM KARATE TEACHER) Narrative Performed At EXAMINATION:XR [facility] 2-[facility]WS [facility]:hip pain COMPARISON:None. TECHNIQUE: 3 views were performed consisting of an AP pelvis, AP and frog's view of the RIGHT hip. FINDINGS: No gross acute fracturing, dislocation, bone destruction, or periosteal reaction is noted. No gross soft tissue swelling is noted. There is mild osteoarthritis of right femoroacetabular joint associated joint space narrowing, subchondral sclerosis and small osteophyte formation. Mild osteoarthritis of sacroiliac joints. IMPRESSION: 1. Mild early osteoarthritis of femoroacetabular joint. 2. Negative for fracture or focal bony lesion. [id number] Procedure Note Interface, Radiology Results Incoming - 10/07/2018 3:51 PM KARATE TEACHER EXAMINATION: XR HIP 2-3 VIEWS RIGHT CLINICAL HISTORY: hip pain COMPARISON: None. TECHNIQUE: 3 views were performed consisting of an AP pelvis, AP and frog's view of the RIGHT hip. FINDINGS: No gross acute fracturing, dislocation, bone destruction, or periosteal reaction is noted. No gross soft tissue swelling is noted. There is mild osteoarthritis of right femoroacetabular joint associated joint space narrowing, subchondral sclerosis and small osteophyte formation. Mild osteoarthritis of sacroiliac joints. IMPRESSION: 1. Mild early osteoarthritis of femoroacetabular joint. 2. Negative for fracture or focal bony lesion. [facility] [id number] Performing Organization Address [facility]/Zipcode Phone Number [facility] [address] [place] [address] * Us duplex venous lower extremity (10/07/2018 10:37 AM KARATE TEACHER) Narrative Performed At EXAMINATION:US DUPLEX VENOUS LOWER EXTREMITY BILATERAL [facility] CLINICAL HISTORY:Leg swelling or painDVT suspected COMPARISON:None. TECHNIQUE:Grayscale, color Doppler, and spectral waveform analysis of the bilateral lower extremity deep venous systems was performed. The bilateral common femoral, superficial femoral, proximal deep femoral, greater saphenous, and popliteal veins were evaluated. The calf vessels were also evaluated. FINDINGS: The bilateral common femoral, superficial femoral, and popliteal veins are compressible. They demonstrate normal venous waveforms and response to augmentation. There is flow in the visualized calf veins. There is no evidence of a popliteal or Dobson's cyst. IMPRESSION: Normal bilateral lower extremity venous Doppler examination. There is no evidence of deep venous thrombosis. [facility]-[id number] Procedure Note Interface, Radiology Results Incoming - 10/07/2018 10:45 AM KARATE TEACHER EXAMINATION: US DUPLEX VENOUS LOWER EXTREMITY BILATERAL CLINICAL HISTORY: Leg swelling or pain DVT suspected COMPARISON: None. TECHNIQUE: Grayscale, color Doppler, and spectral waveform analysis of the bilateral lower extremity deep venous systems was performed. The bilateral common femoral, superficial femoral, proximal deep femoral, greater saphenous, and popliteal veins were evaluated. The calf vessels were also evaluated. FINDINGS: The bilateral common femoral, superficial femoral, and popliteal veins are compressible. They demonstrate normal venous waveforms and response to augmentation. There is flow in the visualized calf veins. There is no evidence of a popliteal or Dobson's cyst. IMPRESSION: Normal bilateral lower extremity venous Doppler examination. There is no evidence of deep venous thrombosis. [facility]-[id number] Performing Organization Address [facility]/Zipcode Phone Number [facility] [address] [place] [address] * MRI Pelvis W Wo Contrast (10/06/2018 5:50 PM KARATE TEACHER) Narrative Performed At [facility] EXAMINATION:MRI PELVIS W WO CONTRAST CLINICAL HISTORY:severe pelvicperineal pain radiating to right thigh TECHNIQUE: Multiplanar multisequence MR images of the pelvis were obtained pre- and post intravenous administration of 8.5 cc of Gadavist. COMPARISON:CT abdomen and pelvis 09/28/2018. FINDINGS: Recent transurethral resection of the prostate gland is again seen. There is no evidence of abnormal fluid collection at the surgical bed to suggest an of abscess. No perineal abnormality is seen. The urinary bladder demonstrate no evidence of inflammatory changes. The image portion GI tract is unremarkable. No abnormal ascites seen. No pathologic lymphadenopathy seen. Regional muscles which are demonstrated no abnormality. IMPRESSION: Negative MRI pelvic exam with no evidence of abscess formation or inflammatory changes. [id number] Procedure Note Interface, Radiology Results Incoming - 10/06/2018 6:35 PM KARATE TEACHER EXAMINATION: MRI PELVIS W WO CONTRAST CLINICAL HISTORY: severe pelvic perineal pain radiating to right thigh TECHNIQUE: Multiplanar multisequence MR images of the pelvis were obtained pre- and post intravenous administration of 8.5 cc of Gadavist. COMPARISON: CT abdomen and pelvis 09/28/2018. FINDINGS: Recent transurethral resection of the prostate gland is again seen. There is no evidence of abnormal fluid collection at the surgical bed to suggest an of abscess. No perineal abnormality is seen. The urinary bladder demonstrate no evidence of inflammatory changes. The image portion GI tract is unremarkable. No abnormal ascites seen. No pathologic lymphadenopathy seen. Regional muscles which are demonstrated no abnormality. IMPRESSION: Negative MRI pelvic exam with no evidence of abscess formation or inflammatory changes. [id number] Performing Organization Address City/State/Zipcode Phone Number [facility] [address] [place] [address] * CT Abdomen Pelvis W Contrast (10/06/2018 5:35 PM KARATE TEACHER) Narrative Performed At EXAMINATION:CT ABDOMEN PELVIS W CONTRAST [facility] CLINICAL HISTORY:Abd painunspecified TECHNIQUE: Multiple axial images of the abdomen and pelvis were obtained following intravenous administration of iodinated contrast. CT imaging was performed with iterative reconstruction technique and/or automated exposure control to reduce radiation dose. COMPARISON: 07/08/2018 FINDINGS: LUNG BASES: Bilateral posterior atelectasis. Scattered vascular calcifications. ABDOMEN: Liver: The liver is normal. No focal mass. Gallbladder: The gallbladder is normal. Spleen: The spleen is not enlarged. Pancreas: The pancreas is unremarkable. Adrenal Glands: The adrenal glands are unremarkable. Kidneys: Right interpolar cyst measures 5 cm. Nonobstructing left nephrolithiasis. Vascular: Multifocal calcified and noncalcified plaque throughout the abdominal aorta. There is ectasia of the infrarenal abdominal aorta with a maximum diameter of 3.4 cm. Nodes: No enlarged retroperitoneal or mesenteric lymphadenopathy. Bowel: Scattered colonic diverticula without evidence of diverticulitis. No acute inflammatory changes. No evidence of bowel obstruction. The appendix is normal in appearance. Ascites/fluid collections: No ascites or fluid collections. PELVIS: A small amount gas is present in the bladder. The prostatic urethra is patulous. Both findings are likely related to recent transurethral prostatic resection. MUSCULOSKELETAL: No suspicious osseous lesions. Mild spondylosis. IMPRESSION: 1.Surgical changes status post recent transurethral resection of the prostate. 2.No acute abdominopelvic inflammatory process is identified. 3.Nonobstructing left nephrolithiasis. 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 [facility]-[id number] Procedure Note Interface, Radiology Results Incoming - 10/06/2018 5:55 PM KARATE TEACHER EXAMINATION: CT ABDOMEN PELVIS W CONTRAST CLINICAL HISTORY: Abd pain unspecified TECHNIQUE: Multiple axial images of the abdomen and pelvis were obtained following intravenous administration of iodinated contrast. CT imaging was performed with iterative reconstruction technique and/or automated exposure control to reduce radiation dose. COMPARISON: 07/08/2018 FINDINGS: LUNG BASES: Bilateral posterior atelectasis. Scattered vascular calcifications. ABDOMEN: Liver: The liver is normal. No focal mass. Gallbladder: The gallbladder is normal. Spleen: The spleen is not enlarged. Pancreas: The pancreas is unremarkable. Adrenal Glands: The adrenal glands are unremarkable. Kidneys: Right interpolar cyst measures 5 cm. Nonobstructing left nephrolithiasis. Vascular: Multifocal calcified and noncalcified plaque throughout the abdominal aorta. There is ectasia of the infrarenal abdominal aorta with a maximum diameter of 3.4 cm. Nodes: No enlarged retroperitoneal or mesenteric lymphadenopathy. Bowel: Scattered colonic diverticula without evidence of diverticulitis. No acute inflammatory changes. No evidence of bowel obstruction. The appendix is normal in appearance. Ascites/fluid collections: No ascites or fluid collections. PELVIS: A small amount gas is present in the bladder. The prostatic urethra is patulous. Both findings are likely related to recent transurethral prostatic resection. MUSCULOSKELETAL: No suspicious osseous lesions. Mild spondylosis. IMPRESSION: 1. Surgical changes status post recent transurethral resection of the prostate. 2. No acute abdominopelvic inflammatory process is identified. 3. Nonobstructing left nephrolithiasis. 4. 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 [facility]-[id number] Performing Organization Address City/[facility]/Zipcode Phone Number [facility] [address] [place] [address] * Estimated GFR (10/06/2018 5:53 AM KARATE TEACHER) Only the most recent of 7 results within the time period is included. Estimated GFR 85 mL/min/1.73 m2 [facility] Comment: [facility] CatergoryUnitsInte rpretation G1 >=90 Normal or high G2 60-89Mildly decreased [id number] Mildly to moderately decreased R0s62-33 Moderately to severely decreased G4 15-29Severely decreased G5 <15Kidney failure The eGFR was calculated using the Chronic Kidney Disease Epidemiology Collaboration (CKD-EPI) equation. Interpretation is based on recommendations of the National Kidney Foundation-Kidney Disease Outcomes Quality Initiative (NKF-KDOQI) published in 2014. Specimen Plasma specimen Performing Organization Address City/[facility]/Zipcode Phone Number [facility] [address] [place] [phone] PATHOLOGY AND GENOMIC MEDICINE [place] [address] [address] * CBC with platelet and differential (10/06/2018 5:53 AM KARATE TEACHER) Only the most recent of 9 results within the time period is included. WBC 6.1 4.2 - 11.0 k/uL [facility] RBC 4.07 4.04 - 5.86 m/uL [facility] HGB 12.0 (L) 13.0 - 17.3 g/dL [facility] HCT 37.8 34.0 - 45.0 % [facility] MCV 92.9 80.0 - 98.[address] [facility] MCH 29.5 27.0 - 34.[address] [facility] MCHC 31.7 31.5 - 36.5 g/dL [facility] RDW - SD 46.1 37.0 - 51.[address] [facility] MPV 9.6 7.4 - 10.[address] [facility] Platelet count 238 150 - 400 k/uL [facility] Nucleated RBC 0.00 /[address] [facility] Neutrophils 52.7 36.0 - 66.0 % [facility] Lymphocytes 32.8 24.0 - 44.0 % [facility] Monocytes 10.3 (H) 0.0 - 6.0 % [facility] Eosinophils 2.6 0.0 - 6.0 % [facility] Basophils 0.5 0.0 - 1.2 % [facility] Immature granulocytes 1.1 (H) 0.0 - 1.0 % [facility] Specimen Blood Performing Organization Address City/State/Zipcode Phone Number [facility] DE[place] OF [address] [facility] [place] [phone] PATHOLOGY AND GENOMIC MEDICINE [address] * Basic metabolic panel (10/06/2018 5:53 AM KARATE TEACHER) Only the most recent of 6 results within the time period is included. Sodium 141 135 - 150 mEq/L [facility] Potassium 4.1 3.5 - 5.0 mEq/L [facility] Chloride 104 98 - 112 mEq/L [facility] CO2 27 24 - 31 mmol/L [facility] Anion gap 10@ANIO 7 - 15 mEq/L [facility] BUN 14 7 - 18 mg/dL [facility] Creatinine 0.90 0.70 - 1.20 mg/dL [facility] Glucose 98 65 - 100 mg/dL [facility] Calcium 8.6 (L) 8.8 - 10.2 mg/dL [facility] Specimen Plasma specimen Performing Organization Address City/State/Zipcode Phone Number [facility] OF [address] [place] [place] [address] PATHOLOGY AND GENOMIC MEDICINE [address] * Surgical pathology request (10/04/2018 1:48 PM KARATE TEACHER) [facility] DEPARTMENT OF PATHOLOGY AND GENOMIC MEDICINE Surgical pathology report See link below for PDF Lab [facility] DEPARTMENT OF Report PATHOLOGY AND GENOMIC MEDICINE Result status This is Final Report for [facility] DEPARTMENT OF [id number] PATHOLOGY AND GENOMIC MEDICINE Performing Organization Address City/[facility] Phone Number [address] [place] [address] PATHOLOGY AND GENOMIC MEDICINE * Prothrombin time with INR (10/04/2018 6:13 AM KARATE TEACHER) Only the most recent of 4 results within the time period is included. Prothrombin time 13.9 11.5 - 14.[address] [facility] INR 1.10 [facility] Comment: [facility] For patients on anticoagulant therapy, reference ranges below: Indication: INR Value Treatment of Venous Thrombosis, 2.0-3.0 pulmonary emboli, or prophylaxis of a venous thrombosis, or systemic emboli. High dose, high risk patients 3.0-4.5 with mechanical valves. NOTE:INR values over 3.0 are sometimes associated with gastrointestinal hemorrhage, especially values over 4.0. Specimen Blood Performing Organization Address City/[facility] Facility[facility] Phone Number [facility] [address] [facility]. [place] [phone] PATHOLOGY AND GENOMIC MEDICINE [address] * Comprehensive metabolic panel (10/04/2018 6:13 AM KARATE TEACHER) Only the most recent of 3 results within the time period is included. Sodium 141 135 - 150 mEq/L [facility] Potassium 4.2 3.5 - 5.0 mEq/L [facility] Chloride 107 98 - 112 mEq/L [facility] CO2 24 24 - 31 mmol/L [facility] Anion gap 10@ANIO 7 - 15 mEq/L [facility] BUN 12 7 - 18 mg/dL [facility] Creatinine 0.90 0.70 - 1.20 mg/dL [facility] Glucose 117 (H) 65 - 100 mg/dL [facility] Calcium 8.7 (L) 8.8 - 10.2 mg/dL [facility] Protein 6.4 6.3 - 8.3 g/dL [facility] Albumin 2.9 (L) 3.5 - 5.0 g/dL [facility] A/G ratio 0.8 0.7 - 3.8 [facility] Alkaline phosphatase 58 0 - 129 U/L [facility] AST 18 10 - 50 U/L [facility] ALT 19 5 - 50 U/L [facility] Total bilirubin 0.4 0.2 - 1.2 mg/dL [facility] Specimen Plasma specimen Performing Organization Address City/State/Zipcode Phone Number [facility] DE[facility]MENT [address] [place] [address] PATHOLOGY AND GENOMIC MEDICINE [address] * Gram stain (10/03/2018 6:01 PM KARATE TEACHER) Only the most recent of 3 results within the time period is included. Gram stain result Few WBC's [facility] No organisms seen HOSPITAL Comment: Specimen Information Specimen Source: Urine Specimen Site: Clean catch Specimen Urine Performing Organization Address City/State/Zipcode Phone Number [facility] DEPARTMENT OF [address] [place] [address] PATHOLOGY AND GENOMIC MEDICINE [address] [address] [facility] * Urine culture (10/03/2018 6:01 PM KARATE TEACHER) Only the most recent of 2 results within the time period is included. Urine culture isolate No growth after 24 hours [facility] Comment: HOSPITAL Specimen Information Specimen Source: Urine Specimen Site: Clean catch Specimen Urine Performing Organization Address City/[facility]/Zipcode Phone Number [facility] DEPARTMENT OF [address] [place] [address] PATHOLOGY AND GENOMIC MEDICINE [facility] [address] [place] [address] [facility] * Urinalysis screen and microscopy, with reflex to culture (10/03/2018 5:27 PM KARATE TEACHER) Only the most recent of 2 results within the time period is included. Specimen site Clean catch [facility] Color, UA Yellow [facility] Appearance, UA Clear [facility] Specific gravity, UA 1.008 1.001 - 1.035 [facility] pH, UA 7.0 5.0 - 8.5 [facility] Protein, UA Negative Negative [facility] Glucose, UA Negative Negative [facility] Ketones, UA Negative Negative [facility] Bilirubin, UA Negative Negative [facility] Blood, UA Negative Negative [facility] Nitrite, UA Negative Negative [facility] Urobilinogen, UA Negative <2.0 [facility] Leukocyte esterase, UA Large (A) Negative [facility] Epithelial cells, UA Few /HPF [facility] WBC, UA 76 (H) 0 - 1 /HPF [facility] RBC, UA 9 (H) 0 - 5 /HPF [facility] Bacteria, UA None seen None seen [facility] Yeast, UA Few (A) [facility] Yeast with pseudohyphae, None seen [facility] Specimen Urine Performing Organization Address City/State/Zipcode Phone Number [facility] DEPARTMENT OF [address] [place] [address] PATHOLOGY AND GENOMIC MEDICINE [facility] [address] [place], [place] [id number] [place] [address] * XR Chest 1 Vw Portable (10/03/2018 3:42 PM KARATE TEACHER) Only the most recent of 3 results within the time period is included. Narrative Performed At EXAMINATION:XR CHEST 1 VW PORTABLE [facility] CLINICAL HISTORY:preop COMPARISON:July 09, 2018 IMPRESSION: Lines: None Lungs and pleura: Bibasilar subsegmental atelectasis versus scarring. No consolidations. No pleural effusion or pneumothorax. Heart and mediastinum: Stable appearance of cardiomediastinal silhouette. Bones: No suspicious osseous lesions. [facility]-[id number] Procedure Note Hm Interface, Radiology Results Incoming - 10/03/2018 3:49 PM KARATE TEACHER EXAMINATION: XR CHEST 1 VW PORTABLE CLINICAL HISTORY: preop COMPARISON: July 09, 2018 IMPRESSION: Lines: None Lungs and pleura: Bibasilar subsegmental atelectasis versus scarring. No consolidations. No pleural effusion or pneumothorax. Heart and mediastinum: Stable appearance of cardiomediastinal silhouette. Bones: No suspicious osseous lesions. [facility]-[id number] Performing Organization Address City/[facility]/Zipcode Phone Number [facility] [address] [place] [address] * Partial thromboplastin time, activated (10/03/2018 3:30 PM KARATE TEACHER) Only the most recent of 2 results within the time period is included. PTT 27.5 23.0 - 36.0 sec [facility] Comment: [facility] PTT therapeutic range for unfractionated heparin is 61.0-112.0 seconds which corresponds to Anti-Xa 0.3-0.7 U/ml. Note:Change in Panic Value The PTT Panic Value is changing from 110 sec. to 100 sec. due to new instrumentation and reagents. Correlation studies have been performed to validate this result. Specimen Blood Performing Organization Address [facility] Facility[facility] Phone Number [facility] DEPARTMENT OF [address] [place] [address] PATHOLOGY AND GENOMIC MEDICINE [facility] [place] [address] * Type and screen (10/03/2018 3:30 PM KARATE TEACHER) ABO grouping A [facility] Rh type POS [facility] Antibody screen (gel) NEG [facility] Specimen Blood Performing Organization Address City/[facility]/Zipcode Phone Number [facility] DEPARTMENT OF [address] [place] [address] PATHOLOGY AND GENOMIC MEDICINE [facility] [address] [address] [facility] * ECG ED Preliminary Interpretation - Not an Order (10/03/2018 3:08 PM KARATE TEACHER) Only the most recent of 2 results within the time period is included. Narrative Performed At Violet Newsome DO 10/04/20188:21 PM ECG ED Preliminary Interpretation - Not an Order Performed by: Violet Newsome DO Authorized by: Violet Newsome DO ECG reviewed by ED Physician in the absence of a research technician: yes Interpretation: Interpretation: abnormal Rate: ECG rate:59 ECG rate assessment: bradycardic Rhythm: Rhythm: sinus bradycardia Ectopy: Ectopy: none QRS: QRS axis:Left QRS intervals:Normal Conduction: Conduction: normal ST segments: ST segments:Normal T waves: T waves: normal * MRI Lumbar Spine Wo Contrast (10/03/2018 3:08 PM KARATE TEACHER) Narrative Performed At [facility] EXAMINATION: MRI LUMBAR SPINE WO CONTRAST CLINICAL HISTORY: Back painrisk factors (osteoporosis or chronic steroid use or elderly) COMPARISON:MRI lumbar spine dated September 21, 2010 TECHNIQUE: Multiplanar multisequence noncontrast enhanced examination was performed of the Lumbar spine. FINDINGS: Vertebral body heights are maintained without acute fracture. No focal significant marrow signal abnormality is appreciated. Soft tissues shows no mass, adenopathy or aneurysm although the aorta is ectatic measuring 2.4 cm in diameter. The partially visualized spinal cord and the conus are unremarkable. Lumbar spine alignment is grossly preserved with normal lordosis without significant subluxation. Axial images through the disc spaces demonstrate the following: L1-L2: There is a shallow right paracentral protrusion mildly narrowing the right lateral recess which is new without other significant changes to L2-L3: There is facet hypertrophy with mild effacement of the posterior lateral right thecal sac which is new. L3-L4: There is disc desiccation and disc bulge with mild narrowing of the bilateral lateral recess. The central thecal sac is patent. Findings are stable. Disc osteophyte complex and facet hypertrophy results in mild narrowing of the bilateral lateral recess. There is a posterior central annular fissure noted. This is unchanged from 2011. L4-L5: There is disc bulge with facet hypertrophy with minimal effacement of the thecal sac and right lateral recess. Disc osteophyte complex and facet spurring results in minimal effacement of the inferior foramina, bilaterally. Findings are stable. There is also a stable annular fissure in the left foraminal disc bulge. L5-S1: There is disc desiccation and facet hypertrophy without canal or lateral recess narrowing. The foramina are patent. No significant posterior disc disease, spinal canal or neural foraminal stenosis at other visualized levels. IMPRESSION: There are some the degenerative disc changes again identified slightly progressed at L1-L2 and L2-L3 and grossly similar to the 2011 exam in the lower lumbar spine without significant stenosis. [id number] Procedure Note Hm Interface, Radiology Results Incoming - 10/03/2018 3:21 PM KARATE TEACHER EXAMINATION: MRI LUMBAR SPINE WO CONTRAST CLINICAL HISTORY: Back pain risk factors (osteoporosis or chronic steroid use or elderly) COMPARISON: MRI lumbar spine dated September 21, 2010 TECHNIQUE: Multiplanar multisequence noncontrast enhanced examination was performed of the Lumbar spine. FINDINGS: Vertebral body heights are maintained without acute fracture. No focal significant marrow signal abnormality is appreciated. Soft tissues shows no mass, adenopathy or aneurysm although the aorta is ectatic measuring 2.4 cm in diameter. The partially visualized spinal cord and the conus are unremarkable. Lumbar spine alignment is grossly preserved with normal lordosis without significant subluxation. Axial images through the disc spaces demonstrate the following: L1-L2: There is a shallow right paracentral protrusion mildly narrowing the right lateral recess which is new without other significant changes to L2-L3: There is facet hypertrophy with mild effacement of the posterior lateral right thecal sac which is new. L3-L4: There is disc desiccation and disc bulge with mild narrowing of the bilateral lateral recess. The central thecal sac is patent. Findings are stable. Disc osteophyte complex and facet hypertrophy results in mild narrowing of the bilateral lateral recess. There is a posterior central annular fissure noted. This is unchanged from 2011. L4-L5: There is disc bulge with facet hypertrophy with minimal effacement of the thecal sac and right lateral recess. Disc osteophyte complex and facet spurring results in minimal effacement of the inferior foramina, bilaterally. Findings are stable. There is also a stable annular fissure in the left foraminal disc bulge. L5-S1: There is disc desiccation and facet hypertrophy without canal or lateral recess narrowing. The foramina are patent. No significant posterior disc disease, spinal canal or neural foraminal stenosis at other visualized levels. IMPRESSION: There are some the degenerative disc changes again identified slightly progressed at L1-L2 and L2-L3 and grossly similar to the 2011 exam in the lower lumbar spine without significant stenosis. [facility]-[id number] Performing Organization Address [facility]/Zipcode Phone Number [facility] [address] [place] [address] * ECG 12 lead (10/03/2018 1:54 PM KARATE TEACHER) Only the most recent of 5 results within the time period is included. Ventricular rate 59 [facility] Atrial rate 59 [facility] CA interval 164 [facility] QRSD interval 142 [facility] QT interval 452 [facility] QTC interval 447 [facility] P axis 1 61 [facility] QRS axis 1 -36 [facility] T wave axis 51 [facility] EKG impression Sinus bradycardia-Left axis [facility] deviation-Right bundle branch block-Abnormal ECG-In automated comparison with ECG of 09-JUL-2018 19:09,-premature atrial complexes are no longer present-Vent. rate has increased BY19 BPM-Inverted T waves have replaced nonspecific T wave abnormality in Anterior leads-QT has lengthened- Narrative Performed At Performing Organization Address [facility] Phone Number [facility] MUSE [address] [place] [address] * POC glucose (07/11/2018 11:40 AM KARATE TEACHER) Only the most recent of 2 results within the time period is included. POC glucose 97 65 - 100 mg/dL [facility] Comment: [facility] Meter ID: [id number] Shredded Filler Cigar Maker Machine: Alda Barakat Performing Organization Address City/[facility]/Zipcode Phone Number [facility] DEPARTMENT OF [facility] [place] [address] PATHOLOGY AND GENOMIC MEDICINE [facility] [address] [place], [place] [id number] [place] [address] * Echocardiogram complete w contrast and 3D if needed (07/09/2018 8:57 PM KARATE TEACHER) Ao Root Diameter 3.43 cm [facility] AoV Area, Vmax 2.17 cm2 [facility] AoV Area, VTI 2.42 cm2 [facility] AoV Mean PG 7.25 mmHg [facility] AoV Peak PG 15.42 mmHg [facility] AoV Vmax 2.02 m/s [facility] AoV VTI 0.43 m [facility] BSA Mcnamara 1.99 m2 [facility] BSA 1.93 m2 [facility] IVS,d 0.78 cm [facility] IVS/LVPW,2D 0.54 [facility] Left Atrium Dimension 3.82 cm [facility] Anterior LV,d 5.11 cm [facility] LV EF,2D 82.42 % [facility] LV,s 2.86 cm [facility] LVOT area 3.46 cm2 [facility] LVOT Diam,S 2.10 cm [facility] LVOT Vmax 1.28 m/s [facility] LVOT VTI 0.30 m [facility] LVPWD,d 1.44 cm [facility] TR Vpeak 2.62 mm/s [facility] MV E A ratio 1.39 [facility] TR pk grad 25.33 mmHg [facility] AoV area i VTI BSA [place] 1.26 cm2/m2 [facility] MR Vmax 4.93 m/s [facility] BMI 28.04 kg/m2 [facility] E wave decelartion time 197.10 msec [facility] MV Peak A Jorge A 0.78 m/s [facility] MV valve area p 1/2 3.85 cm2 [facility] method MV Peak E Jorge A 1.08 m/s [facility] MV stenosis pressure 1/2 57.16 ms [facility] time AV LVOT peak gradient 6.07 mmHg [facility] Ao Root Diameter 3.43 cm [facility] MV mean gradient 1.00 mmHg [facility] LV SYS VOL 31.26 ml [facility] LV DEWITT VOL 124.60 ml [facility] LA area s A4C 21.20 cm2 [facility] LV SI Teich 2D 48.39 ml/m2 [facility] LV SV Teich 2D 93.34 ml [facility] LV Vol s Teich PSAX 31.26 ml [facility] LVOT CI 2.48 l/min/m2 [facility] LVOT CO 4.78 l/min [facility] LVOT HR for LVOT CO 46.10 bpm [facility] LVOT SI 53.70 ml/m2 [facility] MR peak grad 5.49 mmHg [facility] MV Vmax 1.17 m [facility] MV VTI Tips 0.38 m [facility] BSA [place]cock 1.98 m2 [facility] AoV Vmn 1.28 [facility] IVS s 2D 1.30 [facility] LV FS Teich 2D 43.98 [facility] MV AE ratio 0.72 [facility] LV FS Cube 2D 43.98 [facility] LVOT Vmn 0.90 [facility] Pt Size 170.18 [facility] Pt Wt 81.19 [facility] Aov area Vmn 2.45 cm2 [facility] LA A_P score P 1.68 [facility] LVOT mean grad 3.56 mmHg [facility] MAX Pred HR 147.41 [facility] 85 of MPHR 125.30 [facility] AoV area I VMN bsa 1.27 cm2/m2 [facility] Calc MPHR 147.41 bpm [facility] IVS pct thck PLAX 67.86 % [facility] LV SI Cube 2D 57.15 ml/m2 [facility] LV SV Cube 2D 110.24 ml [facility] LV vol d cube 2D 133.75 ml [facility] LV vol s cube 2D 23.51 ml [facility] LVPW pct thck PLAX 61.19 % [facility] LVPW s PLAX 2.32 cm [facility] MV Decel slope 5.47 m/s2 [facility] Pred Exer Dur R1 6.78 [facility] Pred METS R1 7.11 [facility] LA Vol MOD A4C 59.49 ml [facility] Velocity Ratio (V1/V2) 0.63 m/s [facility] EF 74.91 % [facility] E/A ratio 1.38 [facility] Narrative Performed At Performing Organization Address City/State/Zipcode Phone Number [facility] [address] [place] [address] * Arterial blood gas (07/09/2018 7:29 PM KARATE TEACHER) [employer]ig[employer] Maker Machine germain owens [facility] Collection site rra [facility] O2 therapy nc [facility] pH, arterial 7.462 (H) 7.350 - 7.[address] [facility] pCO2, arterial 35.9 35.0 - 45.[address] [facility] pO2, arterial 80.4 80.0 - 90.[address] [facility] O2 saturation, arterial 96.4 95.0 - 100.0 % [facility] Base excess, arterial 1.8 mEq/L [facility] Bicarbonate 25.6 21.0 - 28.0 mEq/L [facility] O2 content 17.7 VOL% [facility] FiO2, inspired O2% 28.0 % [facility] Carboxyhemoglobin 0.3 0.0 - 1.4 % [facility] Comment: [facility] Reference Ranges: Carboxyhemoglobin Non smoker: 0.0 - 2.0% Smoker: 2.1 - 5.0% Heavy smoker: 5.1 - 9% Methemoglobin 1.5 (H) 0.0 - 1.0 % [facility] Hemoglobin, blood gas 13.3 (L) 14.0 - 18.0 g/dL [facility] pO2, A-a 76.[address] [facility] Specimen Blood Performing Organization Address City/[facility]/Zipcode Phone Number [facility] DEPARTMENT OF [address] [place] [phone] PATHOLOGY AND GENOMIC MEDICINE [facility] [address] * Blood culture, aerobic & anaerobic (07/09/2018 7:03 PM KARATE TEACHER) Only the most recent of 4 results within the time period is included. Blood culture isolate No growth after 5 days of [facility] incubation. HOSPITAL Comment: Specimen Information Specimen Source: Blood Specimen Site: Peripheral Hand Left Specimen Blood Performing Organization Address City/State/Zipcode Phone Number [facility] DEPARTMENT OF [address] [place] [address] PATHOLOGY AND GENOMIC MEDICINE [address] * Procalcitonin (07/09/2018 6:59 PM KARATE TEACHER) Procalcitonin 19.90 (H) <=0.07 ng/mL [facility] Comment: INTERPRETIVE INFORMATION: Procalcitonin Effective February 07, 2018, this test is performed by the [facility] Procalcitonin assay. A correction has been applied to optimize cutoff's established for the [employer] PCT sensitive Kryptor assay. Procalcitonin > 2.00 ng/mL: Procalcitonin levels above 2.00 ng/mL on the first day of ICU admission represent a high risk for progression to severe sepsis and/or septic shock. Procalcitonin < 0.50 ng/mL: Procalcitonin levels below 0.50 ng/mL on the first day of ICU admission represent a low risk for progression to severe sepsis and/or septic shock. If the procalcitonin measurement is performed shortly after the systemic infection process has started (usually less than 6 hours), these values may still be low. As various non-infectious conditions are known to induce procalcitonin as well, procalcitonin levels between 0.5 ng/mL and 2.00 ng/mL should be reviewed carefully to take into account the specific clinical background and condition(s) of the individual patient. Performed at: [facility] [address] [place] [id number] Specimen Serum Performing Organization Address City/State/Zipcode Phone Number [facility] [address] [place] [address] [facility] [address] [place] [address] * Troponin (07/09/2018 6:59 PM KARATE TEACHER) Only the most recent of 4 results within the time period is included. Troponin <0.30 0.00 - 0.30 ng/mL [place] Comment: [facility] 0.11 - 1.49 ng/mlMay indicate increased risk of acute coronary syndrome. >=1.5 ng/ml Consistent with acute myocardial infarction. The diagnostic value of a single normal or non-diagnostic result is questionable.Serial samples at 2-6 hour intervals are required to rule out acute myocardial injury. Specimen Plasma specimen Performing Organization Address City/State/Zipcode Phone Number [facility] [place] [id number] [place] [address] PATHOLOGY AND GENOMIC MEDICINE [place] [id number] [place], [place] [id number] [place] [address] * C-reactive protein (07/09/2018 6:59 PM KARATE TEACHER) CRP 9.65 (H) 0.00 - 0.50 mg/dL [facility] Specimen Plasma specimen Performing Organization Address City/[facility] Phone Number [facility] OF [address] [place] [address] PATHOLOGY AND GENOMIC MEDICINE [place] [address] [address] * Thyroid stimulating hormone (07/09/2018 6:59 PM KARATE TEACHER) TSH 0.30 0.27 - 4.20 uIU/mL [facility] Specimen Plasma specimen Performing Organization Address City/[facility] Phone Number [facility] DE[facility] OF [facility] [place] [address] PATHOLOGY AND GENOMIC MEDICINE [address] J[place] * T4, free (07/09/2018 6:59 PM KARATE TEACHER) T4, free 0.90 0.90 - 1.70 ng/dL [facility] Specimen Plasma specimen Performing Organization Address City/[facility] Facility[facility] Phone Number [facility] [place] [address] [place] [address] PATHOLOGY AND GENOMIC MEDICINE [address] * Phosphorus level (07/09/2018 6:59 PM KARATE TEACHER) Phosphorus 2.8 2.4 - 4.5 mg/dL [facility] Specimen Plasma specimen Performing Organization Address City/[facility] Phone Number [facility] DE[facility] OF [address] [place] [address] [place] [address] PATHOLOGY AND GENOMIC MEDICINE [address] * B natriuretic peptide (07/09/2018 6:59 PM KARATE TEACHER) Only the most recent of 2 results within the time period is included. BNP 297 (H) 0 - 100 pg/mL [facility] Specimen Blood Performing Organization Address City/[facility] Phone Number [facility] DE[facility]MENT OF [facility] [place] [address] PATHOLOGY AND GENOMIC MEDICINE [address] * Magnesium level (07/09/2018 6:59 PM KARATE TEACHER) Magnesium 2.00 1.60 - 2.40 mg/dL [facility] Specimen Plasma specimen Performing Organization Address City/[facility] Phone Number [facility] DE[facility] OF [address] [place] [place] [address] PATHOLOGY AND GENOMIC MEDICINE [address] * Lipase level (07/09/2018 6:59 PM KARATE TEACHER) Only the most recent of 2 results within the time period is included. Lipase 16 13 - 60 U/L [facility] Specimen Plasma specimen Performing Organization Address [facility] Facility[facility] Phone Number [facility] [address] [place] [address] PATHOLOGY AND GENOMIC MEDICINE [address] * Lactic acid level (07/09/2018 6:59 PM KARATE TEACHER) Lactic acid 1.7 0.5 - 2.2 mmol/L [facility] Specimen Blood Performing Organization Address [facility] Phone Number [facility] DE[facility] OF [address] [place] [address] PATHOLOGY AND GENOMIC MEDICINE [address] * Creatine kinase, total (CPK) (07/09/2018 6:59 PM KARATE TEACHER) Creatine kinase 69 39 - 308 U/L [facility] Specimen Plasma specimen Performing Organization Address [facility] Phone Number [facility] DE[facility]MENT OF [address] [place] [address] PATHOLOGY AND GENOMIC MEDICINE [address] * Ionized calcium (07/09/2018 6:59 PM KARATE TEACHER) pH 7.40 [facility] Ionized calcium 1.16 1.11 - 1.32 mmol/L [facility] Specimen Plasma specimen Performing Organization Address City/State/Zipcode Phone Number [facility] OF [address] [place] [address] PATHOLOGY AND GENOMIC MEDICINE [facility] [address] [place], [place] [id number] [place] [address] * Respiratory culture (07/08/2018 5:10 PM KARATE TEACHER) Respiratory culture Normal oral richard isolated. [facility] isolate Comment: HOSPITAL Specimen Information Specimen Source: Bronchial Washing Specimen Site: All Lobes Specimen Bronchial washing - Washing Performing Organization Address City/[facility]/Zipcode Phone Number [facility] DEPARTMENT OF [address] [place] [address] PATHOLOGY AND GENOMIC MEDICINE [facility] [address] * CT Abdomen Pelvis W Wo Contrast (07/08/2018 10:28 AM KARATE TEACHER) Narrative Performed At EXAMINATION:CT ABDOMEN PELVIS W WO CONTRAST [facility] CLINICAL HISTORY:Abnormal findings on diagnostic imaging of other parts of digestive tract, liver [id number] cm possible liver lesion TECHNIQUE: Multiple axial images of the abdomen and pelvis were obtained following intravenous administration of iodinated contrast. Sagittal and coronal computerized reformatted images were also obtained. Approximately 75 cc of Omnipaque [address] scan performed using radiation dose reduction techniques. Technical factors are evaluated and adjusted to ensure appropriate moderation of exposure. Automated dose management technology is applied to adjust the radiation dose to minimize expose whileachieving a diagnostic quality image. COMPARISON:CTA PE chest 07/07/2018. FINDINGS: Lung bases: Mild improvement of bibasilar posterior subpleural consolidation/atelectasis are seen. An approximately 3 mm subpleural nodule within the peripheral aspect of the right middle lobe as prior, series 2 image #4.. Liver: The liver is normal in attenuation, contour and size. No space-occupying hepatic mass is seen. There is no evidence of intrahepatic biliary dilatation. Gallbladder: Vicarious excretion into the gallbladder is noted. The gallbladder is otherwise unremarkable.. Pancreas: The pancreas is normal in caliber and attenuation. No inflammatory process. The pancreatic duct is within normal limits. Spleen: The spleen is normal in appearance.. Kidneys and ureters: The kidneys function symmetrically. An approximately 4.9 x 4.3 cm exophytic cyst is seen within the lateral aspect of the midpole of the right kidney. A too small to characterize 8mm low-density is seen within the anterior aspect of the upper pole of the right kidney with Hounsfield units ranging from 28-57 HU, image #42 on all series. A similar approximately 5.8 mm low-density is seen within the upper pole of the left kidney, image #47. There is no enhancing renal lesion. 2 nonobstructive left renal calculus are seen with the larger calculus measuring approximately 3 mm. No right renal calculus is identified. There is no evidence of hydronephrosis.. The ureters are normal in course and caliber. Adrenal glands: Unremarkable. GI tract: The small bowel is normal in course and caliber. Moderate retained fecal debris is interbody colon. The colon is unremarkable. No bowel wall thickening is identified. There is no acute inflammatory process. The appendix is normal. No right lower quadrant inflammation is seen. The stomach is unremarkable. Fluid: None. Pelvis: Bladder: The urinary bladder is partially decompressed by a Hand catheter. Genitalia: Unremarkable. Fluid: None. Bones: Unremarkable. Retroperitoneum/intraperitoneum: No retroperitoneal or mesenteric pathologic lymphadenopathy is seen. Vasculature: Scattered atherosclerotic calcifications of the ectatic abdominal aorta and iliac arteries are noted. No evidence of aortic aneurysm or dissection.The mesenteric vessels and visceral vessel are patent. Abdominal wall: Unremarkable. IMPRESSION: No CT evidence of hepatitic lesion. Therefore, findings on the prior CTA exam consistent with artifact. Moderate constipation. No CT evidence of appendicitis, colitis or bowel obstruction. Bilateral too small to characterize indeterminate renal low density lesions, probably representing slightly complex cysts. Recommend imaging follow-up in 6 months to document stability. Approximately 4.9 x 4.3 cm Bosniak category 1 right renal cyst. Indeterminate right middle lobe subpleural nodule. Moderate improvement of bibasilar posterior subpleural consolidation/atelectasis. [employer] RECOMMEND[employer] SOLID NODULES Multiple Nodules Nodule size: Less than 6 mm *Low risk patients: No routine follow-up *High risk patients: Optional CT @ 12 months Nodule size: 6-8 mm *Low risk patients: CT at 3-6 months, then consider CT at 18-24 months *High risk patients: CT at 3-6 months, then CT at 18-24 months Nodule size: Greater than 8 mm *Low risk patients: CT at 3-6 months, then consider CT at 18-24 months *High risk patients: CT at 3-6 months, then CT at 18-24 months Comments: Use most suspicious nodule as guide to management. Follow-up intervals may vary according to size and risk. NOTES: Low risk patients: *Minimal or absent history of smoking and/or other known risk factors High risk patients: *Greater than 20 [id number] history of smoking, or equivalent second hand exposure *Personal history of cancer or family history of lung cancer *Occupational exposure *Chronic interstitial/fibrotic lung disease Young patient: Primary lung cancer is rare in persons under 35 years of age, and the risks from radiation exposure are greater than in the older population. Therefore, unless there is a known primary cancer, follow-up CT studies for small incidentally detected nodules are not recommended. The above recommendations do not apply to lung cancer screening patients, patients with immunosuppression, or patients with known primary cancer. Dimensions are average of long and short axes rounded to the nearest mm. [id number] Procedure Note Hm Interface, Radiology Results Incoming - 07/08/2018 10:54 AM KARATE TEACHER EXAMINATION: CT ABDOMEN PELVIS W WO CONTRAST CLINICAL HISTORY: Abnormal findings on diagnostic imaging of other parts of digestive tract, liver protocol 8x5 cm possible liver lesion TECHNIQUE: Multiple axial images of the abdomen and pelvis were obtained following intravenous administration of iodinated contrast. Sagittal and coronal computerized reformatted images were also obtained. Approximately 75 cc of Omnipaque [address] scan performed using radiation dose reduction techniques. Technical factors are evaluated and adjusted to ensure appropriate moderation of exposure. Automated dose management technology is applied to adjust the radiation dose to minimize expose while achieving a diagnostic quality image. COMPARISON: CTA PE chest 07/07/2018. FINDINGS: Lung bases: Mild improvement of bibasilar posterior subpleural consolidation/atelectasis are seen. An approximately 3 mm subpleural nodule within the peripheral aspect of the right middle lobe as prior, series 2 image #4.. Liver: The liver is normal in attenuation, contour and size. No space-occupying hepatic mass is seen. There is no evidence of intrahepatic biliary dilatation. Gallbladder: Vicarious excretion into the gallbladder is noted. The gallbladder is otherwise unremarkable.. Pancreas: The pancreas is normal in caliber and attenuation. No inflammatory process. The pancreatic duct is within normal limits. Spleen: The spleen is normal in appearance.. Kidneys and ureters: The kidneys function symmetrically. An approximately 4.9 x 4.3 cm exophytic cyst is seen within the lateral aspect of the midpole of the right kidney. A too small to characterize 8mm low-density is seen within the anterior aspect of the upper pole of the right kidney with Hounsfield units ranging from 28-57 HU, image #42 on all series. A similar approximately 5.8 mm low-density is seen within the upper pole of the left kidney, image #47. There is no enhancing renal lesion. 2 nonobstructive left renal calculus are seen with the larger calculus measuring approximately 3 mm. No right renal calculus is identified. There is no evidence of hydronephrosis.. The ureters are normal in course and caliber. Adrenal glands: Unremarkable. GI tract: The small bowel is normal in course and caliber. Moderate retained fecal debris is interbody colon. The colon is unremarkable. No bowel wall thickening is identified. There is no acute inflammatory process. The appendix is normal. No right lower quadrant inflammation is seen. The stomach is unremarkable. Fluid: None. Pelvis: Bladder: The urinary bladder is partially decompressed by a Hand catheter. Genitalia: Unremarkable. Fluid: None. Bones: Unremarkable. Retroperitoneum/intraperitoneum: No retroperitoneal or mesenteric pathologic lymphadenopathy is seen. Vasculature: Scattered atherosclerotic calcifications of the ectatic abdominal aorta and iliac arteries are noted. No evidence of aortic aneurysm or dissection. The mesenteric vessels and visceral vessel are patent. Abdominal wall: Unremarkable. IMPRESSION: No CT evidence of hepatitic lesion. Therefore, findings on the prior CTA exam consistent with artifact. Moderate constipation. No CT evidence of appendicitis, colitis or bowel obstruction. Bilateral too small to characterize indeterminate renal low density lesions, probably representing slightly complex cysts. Recommend imaging follow-up in 6 months to document stability. Approximately 4.9 x 4.3 cm Bosniak category 1 right renal cyst. Indeterminate right middle lobe subpleural nodule. Moderate improvement of bibasilar posterior subpleural consolidation/atelectasis. [employer] RECOMMENDATIONS SOLID NODULES Multiple Nodules Nodule size: Less than 6 mm * Low risk patients: No routine follow-up * High risk patients: Optional CT @ 12 months Nodule size: 6-8 mm * Low risk patients: CT at 3-6 months, then consider CT at 18-24 months * High risk patients: CT at 3-6 months, then CT at 18-24 months Nodule size: Greater than 8 mm * Low risk patients: CT at 3-6 months, then consider CT at 18-24 months * High risk patients: CT at 3-6 months, then CT at 18-24 months Comments: Use most suspicious nodule as guide to management. Follow-up intervals may vary according to size and risk. NOTES: Low risk patients: * Minimal or absent history of smoking and/or other known risk factors High risk patients: * Greater than 20 [id number] history of smoking, or equivalent second hand exposure * Personal history of cancer or family history of lung cancer * Occupational exposure * Chronic interstitial/fibrotic lung disease Young patient: Primary lung cancer is rare in persons under 35 years of age, and the risks from radiation exposure are greater than in the older population. Therefore, unless there is a known primary cancer, follow-up CT studies for small incidentally detected nodules are not recommended. The above recommendations do not apply to lung cancer screening patients, patients with immunosuppression, or patients with known primary cancer. Dimensions are average of long and short axes rounded to the nearest mm. [id number] Performing Organization Address City/State/Zipcode Phone Number [facility] [address] [place] [address] * Venous blood gas (07/08/2018 6:14 AM KARATE TEACHER) Shredded Filler Cigar Maker Machine [id number] [facility] Collection site R HAND [facility] pH, venous 7.423 (H) 7.320 - 7.[address] [facility] pCO2, venous 44.1 (L) 45.0 - 51.[address] [facility] pO2, venous 59.3 (H) 25.0 - 40.[address] [facility] O2 saturation, venous 91.3 (H) 40.0 - 70.0 % [facility] Base excess, venous 4.3 (H) -2.0 - 2.0 mEq/L [facility] Bicarbonate 28.8 (H) 21.0 - 28.0 mEq/L [facility] O2 content 17.1 VOL% [facility] FiO2, inspired O2% 21.0 % [facility] Carboxyhemoglobin 0.9 0.0 - 1.4 % [facility] Comment: [facility] Reference Ranges: Carboxyhemoglobin Non smoker: 0.0 - 2.0% Smoker: 2.1 - 5.0% Heavy smoker: 5.1 - 9% Methemoglobin 1.3 (H) 0.0 - 1.0 % [facility] Hemoglobin, blood gas 13.6 (L) 14.0 - 18.0 g/dL [facility] Specimen Blood Performing Organization Address City/[facility] [place] [place] [address] PATHOLOGY AND GENOMIC MEDICINE [address] * Lactic acid level, SEPSIS - Now and repeat 2x every 3 hours (07/08/2018 3:44 AM KARATE TEACHER) Only the most recent of 3 results within the time period is included. Lactic acid 1.2 0.5 - 2.2 mmol/L [facility] Specimen Blood Performing Organization Address City/[facility] [place] [place] [address] PATHOLOGY AND GENOMIC MEDICINE [address] * CT Angiogram Pe Chest (07/08/2018 12:24 AM KARATE TEACHER) Narrative Performed At EXAMINATION: [facility] CT ANGIOGRAM PE CHEST CLINICAL HISTORY: recent surgerymild hypoxiafever TECHNIQUE: CT angiographic images of the chest were obtained during intravenous administration of iodinated contrast. Computerized reformatted images and 3-D MIP images were also obtained and archived (CT pulmonary embolus protocol). CT imaging was performed with iterative reconstruction technique and/or automated exposure control to reduce radiation dose. COMPARISON: None. IMPRESSION: Confluent infiltrates are seen of the lower lobes, left greater than right, compatible with multifocal infectious or inflammatory pneumonitis. Some opacification of subsegmental bronchi is seen especially on the left, an appearance thought to reflect aspiration pneumonitis. Some atelectasis is seen of the lingula. No effusions or pneumothorax. The airway is patent. Heart size is upper limits of normal. Trace pericardial effusion. Coronary artery calcifications are seen. Some prominent mediastinal lymph nodes are seen without adenopathy by size criteria. Main pulmonary artery is dilated to 3.2 cm, compatible with pulmonary arterial hypertension. No main branch, saddle region, or proximal segmental filling defects are seen to suggest pulmonary artery embolus. No aortic aneurysm, dissection, or pseudoaneurysm. Atherosclerotic vascular calcifications are seen. Arising from the right lobe of the liver, there is question of hypodense lesion measuring 8 x 5 cm. This could be artifactual; however, further evaluation with CT liver mass protocol or MRI abdomen with and without contrast is advised on nonemergent basis. Punctate nonobstructive calculi are seen of left renal collecting system. Simple cyst is seen of interpolar region of the right kidney. No acute osseous abnormalities. CONCLUSION: No pulmonary embolus. Bilateral lower lobe airspace infiltrates are seen, concerning for developing multifocal infectious or inflammatory pneumonitis. Opacification of segmental and subsegmental bronchi is seen, especially of the left lower lobe, and part of this appearance is thought to reflect aspiration pneumonitis. Arising from the right lobe of the liver, there is question of hypodense lesion measuring 8 x 5 cm. This could be artifactual; however, further evaluation with CT liver mass protocol or MRI abdomen with and without contrast is advised on nonemergent basis. Punctate nonobstructive calculi are seen of left renal collecting system. [facility]-[id number] Procedure Note [facility], Radiology Results Incoming - 07/08/2018 12:45 AM KARATE TEACHER EXAMINATION: CT ANGIOGRAM PE CHEST CLINICAL HISTORY: recent surgery mild hypoxia fever TECHNIQUE: CT angiographic images of the chest were obtained during intravenous administration of iodinated contrast. Computerized reformatted images and 3-D MIP images were also obtained and archived (CT pulmonary embolus protocol). CT imaging was performed with iterative reconstruction technique and/or automated exposure control to reduce radiation dose. COMPARISON: None. IMPRESSION: Confluent infiltrates are seen of the lower lobes, left greater than right, compatible with multifocal infectious or inflammatory pneumonitis. Some opacification of subsegmental bronchi is seen especially on the left, an appearance thought to reflect aspiration pneumonitis. Some atelectasis is seen of the lingula. No effusions or pneumothorax. The airway is patent. Heart size is upper limits of normal. Trace pericardial effusion. Coronary artery calcifications are seen. Some prominent mediastinal lymph nodes are seen without adenopathy by size criteria. Main pulmonary artery is dilated to 3.2 cm, compatible with pulmonary arterial hypertension. No main branch, saddle region, or proximal segmental filling defects are seen to suggest pulmonary artery embolus. No aortic aneurysm, dissection, or pseudoaneurysm. Atherosclerotic vascular calcifications are seen. Arising from the right lobe of the liver, there is question of hypodense lesion measuring 8 x 5 cm. This could be artifactual; however, further evaluation with CT liver mass protocol or MRI abdomen with and without contrast is advised on nonemergent basis. Punctate nonobstructive calculi are seen of left renal collecting system. Simple cyst is seen of interpolar region of the right kidney. No acute osseous abnormalities. CONCLUSION: No pulmonary embolus. Bilateral lower lobe airspace infiltrates are seen, concerning for developing multifocal infectious or inflammatory pneumonitis. Opacification of segmental and subsegmental bronchi is seen, especially of the left lower lobe, and part of this appearance is thought to reflect aspiration pneumonitis. Arising from the right lobe of the liver, there is question of hypodense lesion measuring 8 x 5 cm. This could be artifactual; however, further evaluation with CT liver mass protocol or MRI abdomen with and without contrast is advised on nonemergent basis. Punctate nonobstructive calculi are seen of left renal collecting system. [facility]-[id number] Performing Organization Address City/State/Zipcode Phone Number [facility] [address] [place] [address] * Sepsis Clinical Assessment (07/07/2018 9:38 PM KARATE TEACHER) Narrative Performed At Robert Rich NP 07/08/20186:24 AM Reperfusion assessment done Sepsis Clinical Assessment Performed by: Robert Rich NP Authorized by: Robert Rich NP Sepsis Clinical Assessment General Assessment Information Current sepsis score:2 On comfort care?: No If score does not worsen, snooze alerts until:07/08/2018 09:00 KARATE TEACHER SIRS Criteria Temperature > 38.3 C (101 F) due to acute condition Heart rate > 90 bpm due to acute condition Organ Dysfunction Lactate > 2.0 mmol/L due to acute condition Sepsis Assessment Clinical suspicion of infection? Yes Time of suspicion of infection:07/07/2018 9:38 PM Clinical suspicion of sepsis?: Yes Sepsis staging:Sepsis Sepsis protocol started?Yes Where did the protocol start?:ED Started Suspected Type/Source of Infection Suspected Type of Infection: Unknown Suspected Source of Infection: UTI and Source unknown Focus Exam Sepsis focus exam performed at 07/07/2018 9:38 PM Cardiopulmonary Exam Heart: Regular rate & rhythm Left Lung: Clear Right Lung: Clear Capillary Refill Capillary refill rate: Brisk, < 3 s Peripheral Pulses Left dorsalis pedis:Normal Right dorsalis pedis:Normal Left posterial tibial: Normal Right posterial tibial:Normal Left radial:Normal Right radial:Normal Skin Exam Skin exam: Skin color normal Sepsis Related Vitals Heart rate: 56 Temperature: 99.3 F Respiratory rate: 20 Blood pressure: 116/69 Altered mental status: WBC (k/uL) Date Value 07/07/2018 11.8 (H)02/10/2018 4.3 Weight-Based Fluid Bolus Calculation The recommended weight-based bolus volume: 2,436 mL (dosing weight) Please refer to the MAR for actual med/fluid administrations. * CRITICAL CARE (07/07/2018 8:49 PM KARATE TEACHER) Narrative Performed At Herminio Dick MD 07/08/2018 12:54 PM Critical Care Performed by: Herminio Dick MD Authorized by: Herminio Dick MD Critical care provider statement: Critical care time (minutes):33 Critical care time was exclusive of:Separately billable procedures and treating other patients and teaching time Critical care was necessary to treat or prevent imminent or life-threatening deterioration of the following conditions:Sepsis Critical care was time spent personally by me on the following activities:Development of treatment plan with patient or surrogate, discussions with consultants, discussions with primary provider, evaluation of patient's response to treatment, obtaining history from patient or surrogate, ordering and performing treatments and interventions, ordering and review of laboratory studies, ordering and review of radiographic studies, pulse oximetry, re-evaluation of patient's condition and review of old charts * Hepatic function panel (07/07/2018 8:38 PM KARATE TEACHER) Albumin 3.2 (L) 3.5 - 5.0 g/dL [facility] Total bilirubin 0.9 0.2 - 1.2 mg/dL [facility] Bilirubin direct 0.2 0.0 - 0.4 mg/dL [facility] Alkaline phosphatase 57 0 - 129 U/L [facility] Protein 6.3 6.3 - 8.3 g/dL [facility] ALT 17 5 - 50 U/L [facility] AST 26 10 - 50 U/L [facility] Specimen Plasma specimen Performing Organization Address City/State/Zipcode Phone Number [facility] [place] [address] [place] [address] PATHOLOGY AND GENOMIC MEDICINE [place] [address] [place], [place] [id number] [place] [address] * [place] Pyelogram Retrograde (02/15/2018 2:31 PM [...] 47 seconds. 4 image(s). Performing Organization Address City/[facility]/Zipcode Phone Number [facility] [address] [place] [address] * ECG Pre/Post Op (02/10/2018 12:41 PM CDT) Ventricular rate 49 [facility] Atrial rate 49 [facility] CA interval 136 [facility] QRSD interval 130 [facility] QT interval 444 [facility] QTC interval 401 [facility] P axis 1 27 [facility] QRS axis 1 -49 [facility] T wave axis 31 [facility] EKG impression Marked sinus bradycardia-Right [facility]USE bundle branch block-Left anterior fascicular block-^^^ Bifascicular block ^^^-Possible Lateral infarct , age undetermined-Abnormal ECG-In automated comparison with ECG of 17-MAY-2013 16:37,-Vent. rate has decreased BY26 BPM-(RBBB and left anterior fascicular block) is now present- Performing Organization Address [facility] Phone Number [facility] [place] [address] [place] [address] * Estimated GFR (02/10/2018 12:20 PM CDT) Only the most recent of 2 results within the time period is included. GFR Non Af Amer 73 mL/min/1.73 m2 [facility] DE[place] OF PATHOLOGY AND GENOMIC MEDICINE GFR Af Amer 89 mL/min/1.73 m2 [facility] [place] OF Comment: PATHOLOGY AND Chronic kidney [...] Americans. Specimen Plasma specimen Performing Organization Address City/[facility]/Zipcode Phone Number [facility] [address] [place] [address] PATHOLOGY AND GENOMIC MEDICINE * CBC hemogram (01/11/2018 11:43 AM CDT) WBC 4.0 (L) 4.2 - 11.0 k/uL [facility] [place] OF PATHOLOGY AND GENOMIC MEDICINE RBC 4.90 4.04 - 5.86 m/uL [facility] OF PATHOLOGY AND GENOMIC MEDICINE HGB 14.4 13.0 - 17.3 g/dL [facility] DE[place] OF PATHOLOGY AND GENOMIC MEDICINE HCT 45.0 34.0 - 45.0 % [facility] DE[place] OF PATHOLOGY AND GENOMIC MEDICINE MCV 91.8 80.0 - 98.0 fL [facility] [place] OF PATHOLOGY AND GENOMIC MEDICINE MCH 29.4 27.0 - 34.0 pg [facility] DE[place] OF PATHOLOGY AND GENOMIC MEDICINE MCHC 32.0 31.5 - 36.5 g/dL [facility] DE[place] OF PATHOLOGY AND GENOMIC MEDICINE RDW - SD 48.1 37.0 - 51.0 fL [facility] DE[place] OF PATHOLOGY AND GENOMIC MEDICINE MPV 10.9 (H) 7.4 - 10.4 fL [facility] [place] OF PATHOLOGY AND GENOMIC MEDICINE Platelet count 171 150 - 400 k/uL [facility] DE[facility] OF PATHOLOGY AND GENOMIC MEDICINE Nucleated RBC 0.00 /100 WBC [facility] DE[place] OF PATHOLOGY AND GENOMIC MEDICINE Specimen Blood Performing Organization Address City/[facility] Phone Number [facility] [address] [place] [address] PATHOLOGY AND GENOMIC MEDICINE * Prostate specific antigen (01/11/2018 11:43 AM CDT) PSA 5.1 (H) 0.0 - 4.0 ng/mL [facility] DEPARTMENT OF Comment: PATHOLOGY AND The HAO 8000 PSA immunoassay [facility] was used. Results obtained with different assay methods or kits should not be used interchangeably and may be different. Specimen Plasma specimen Performing Organization Address City/State/Zipcode Phone Number [facility] DEPARTMENT OF [address] [place] [address] PATHOLOGY AND [facility] MEDICINE * US Prostate (01/11/2018 11:38 AM [...] density seen within the prostate. Procedure Note Interface, Radiology Results Incoming - 01/11/2018 2:29 [...] seen within the prostate. Performing Organization Address City/State/Zipcode Phone Number [facility] [address] [place] [address] after 10/24/2017 Insurance Payer Benefit Subscriber ID Type Phone Address Plan / Group MEDICARE MEDICARE xxxxxxxxxx Medicare [place], [place] A AND B [employer] [employer] Advance Directives Patient has advance care planning documents on file. For more information, eduardo manuel contact: Dasilva Jewish [address] [place] [address]
--- OUTSIDE RECORDS SUMMARY | 2018-10-25 12:13 | XMS REPORT | Continuity of Care Document ---
Author Author [facility] Organization Interface Address Unknown Phone Unavailable Problems Problem Status Onset Date Classification Date Reported Comments Source MENISCUS TEAR Active 07/05/2017 [facility] MENISCUS TEAR Active 07/05/2017 [facility] Acute prostatitis Active Problem 07/11/2017 [facility] Anxiety Active Problem 07/11/2017 [facility] BPH (<span ID="[id number]">Confirmed</span>) Active Problem 07/11/2017 [facility] [...] TEAR OF MEDIAL MENSC, CURRENT IN Active [facility] UNILATERAL PRIMARY OSTEOARTHRITIS, LEFT Active [facility] Medications Medication Details Route Status Patient Instructions Ordering Provider Order Date Source Losartan , Oral Daily Active 07/04/2018 [facility] Amitriptyline Hcl 25 Mg Tablet, 25 Mg Oral Bedtime Active 09/07/2017 [facility] Ciprofloxacin Hcl (Cipro) 500 Mg Tablet, 500 Mg Oral Twice A Day Active 09/07/2017 [facility] Keflex , Unknown Active 09/07/2017 [facility] Phenazopyridine Hcl 200 Mg Tablet, 200 Mg Oral Every 8 Hours Active 09/07/2017 [facility] Potassium Chloride 10 Meq Tablet.er, 10 Meq Oral Daily Active 09/07/2017 [facility] Tizanidine Hcl (Zanaflex) 4 Mg Capsule, 4 Mg Oral Bedtime Active 09/07/2017 [facility] Triamterene/Hydrochlorothiazid (Triamterene-Hctz 75-50 Mg Tab) 1 Each Tablet, 1 Tab Oral Every Morning Active 09/07/2017 [facility] Tramadol 50 mg, 1 tab, Route: PO, Drug form: TAB, Q6H, Dosing Weight 85.455, kg, PRN Pain Score 1-3, Start date: 07/08/17 14:18:00 PU[employer] 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 OPERATOR [employer], Duration: 30 day, Stop date: 08/07/17 14:17:00 CSTNotes: (Same as:MORPhine Sulfate) No Longer Active 07/08/[facility] Hydromorphone 0.3 mg, 0.15 mL, Route: IVP, Drug form: INJ, Q3H, Dosing Weight 85.455, kg, PRN Pain Score 4-6, Start date: 07/08/17 14:18:00 PUMP OPER[employer], Duration: 30 day, Stop date: 08/07/17 14:17:00 CSTNotes: Same as Dilaudid No Longer Active 07/08/2017 [facility] Acetaminophen 325 MG / Hydrocodone Bitartrate 10 MG Oral Tablet 1 tab, Route: PO, Drug Form: TAB, Dosing Weight 85.455, kg, Q4H, PRN Pain Score 4-6, Start date: 07/08/17 14:18:00 PUMP OPER[employer], Duration: 30 day, Stop date: 08/07/17 14:17:00 CSTNotes: Do not exceed 4gm/day of acetaminophen. (Same as: Clark 325/10) No Longer Active 07/08/2017 [facility] Ancef 2 gm, Route: IVP, Drug form: PDR/INJ, ONCE, Dosing Weight 85.455, kg, Start date: 07/08/17 12:46:00 PUMP OPERATOR [employer], Stop date: 07/08/17 12:46:00 PUMP OPER[employer], Surgical Prophylaxis Only; For patients Notes: (Same As: Evi Uribe) MEDICATION WASTE Product Size: 1000 mg Product Wasted: ___ mg Inactive 07/08/2017 [facility] Lactated Ringers IV 1,000 mL 1,000 mL, Rate: 40 ml/hr, Infuse over: 25 hr, Route: IV, Dosing Weight 85.455 kg, Total Volume: 1,000, Start date: 07/08/17 12:46:00 PUMP OPER[employer], Duration: 30 day, Stop date: 08/07/17 12:45:00 PUMP OPERATOR [employer], 2.03, m2 No Longer Active 07/08/2017 [facility] Ondansetron 4 mg, 2 [...] PRN Elevated BP, Start date: 07/08/17 12:09:00 [employer]MP OPER[employer], Duration: 2 doses or times, Stop date: Limited # of timesNotes: (Same as: Apresoline) Push over 5 minutes Inactive 07/08/2017 [facility] Labetalol 10 mg, 2 mL, Route: IVP, Drug form: INJ, Q5Min, Dosing Weight 85.455, kg, PRN Elevated BP, Start date: 07/08/17 12:09:00 PUMP OPERATOR [employer], Duration: 5 doses or times, Stop date: Limited # of times Inactive 07/08/[facility] Hydromorphone 0.5 mg, 0.25 mL, Route: IVP, Drug form: INJ, Q5Min, Dosing Weight 85.455, kg, PRN Pain Score 7-10, Start date: 07/08/17 12:09:00 PUMP OPER[employer], Duration: 4 doses or times, Stop date: Limited # of timesNotes: S harper as Dilaudid Inactive 07/08/2017 [facility] Vitamin C See Instructions, Unknown dose; 1 tab po Daily, 0 Refill(s) Active 07/05/2017 [facility] multivitamin Daily, 0 Refill(s) [...] 3 Refill(s) Active 07/05/2017 [facility] Levofloxacin (Levaquin) 500 Mg Tablet Daily Active [facility] Losartan Potassium 50 Mg Tablet Daily Active [facility] Simvastatin 40 Mg Tablet Daily [facility] Tamsulosin Hcl (Flomax*) 0.4 Mg Cap Bedtime Active [facility] Trazodone Hcl 50 Mg Tablet Bedtime Active [facility] Allergies, Adverse Reactions, Alerts Substance Category Reaction Severity Reaction type Status Date Reported Comments Source Immunizations Immunization Date Given Site Status Last Updated Comments Source Results Order Name Results Value Reference Range Date Interpretation Comments Source Ext Lower limited non vascular US Ext Lower limited non vascular US Clinical Indication: - pain, mass with gait disturbance Comparison: None TECHNIQUE: Sonographic evaluation of the right groin in posterior patella region was performed using high resolution B-mode imaging, along with pulse and color Doppler imaging. FINDINGS: Right groin: Adjacent to the penis, there are 2 heterogenous lesions which measure 5.3 x 1.5 x 2.0 cm and 5.2 x 1.2 x 2.0 cm; these lesions demonstrate apparent venous flow with inspiration. Right buttock region: No focal fluid collections, masses, or other abnormalities are identified. IMPRESSION: 1. In the right groin adjacent to the penis, 2 heterogenous lesions measuring up to 5.3 cm, which demonstrate apparent venous flow with inspiration. Consider further evaluation with limited right thigh CT with IV contrast. 2. No sonographic abnormalities in the region of concern in the right buttock. SL: CHILO 10/21/2018 - - Read by: Nayana Avelar MD Dictated Date/time: 10/21/18 17:06 Electronically Signed by: Nayana Avelar MD 10/21/18 17:13 FINAL REPORT [facility] Blood leukocytes automated count (number/volume) 13.84 4.8 - 10.8 07/07/2018 [facility] Blood erythrocytes automated count (number/volume) 4.74 4.3 - 5.7 07/07/2018 [facility] Blood hemoglobin measurement (moles/volume) 14.4 14.0 - 18.0 07/07/2018 [facility] Automated blood hematocrit (volume fraction) 42.4 38.2 - 49.6 07/07/2018 [facility] Automated erythrocyte mean corpuscular volume 89.5 81 - 99 07/07/2018 [facility] Automated erythrocyte mean corpuscular hemoglobin (mass per erythrocyte) 30.4 28 - 32 07/07/2018 [facility] Automated erythrocyte mean corpuscular hemoglobin concentration measurement (mass/volume) 34.0 31 - 35 07/07/2018 [facility] RDW BldCo-Rto 12.9 11.7 - 14.4 07/07/2018 [facility] Automated blood platelet count (count/volume) 218 140 - 360 07/07/2018 [facility] Automated blood segmented neutrophil count as percentage of total leukocytes 84.7 38.7 - 80.0 07/07/2018 [facility] Automated blood lymphocyte count as percentage ot total leukocytes 10.0 18.0 - 39.1 07/07/2018 [facility] Automated blood monocyte count as percentage of total leukocytes 4.4 4.4 - 11.3 07/07/2018 [facility] Automated blood eosinophil count as percentage of total leukocytes 0.1 0.0 - 6.0 07/07/2018 [facility] Automated blood basophil count as percentage of total leukocytes 0.1 0.0 - 1.0 07/07/2018 [facility] IM GRANULOCYTES % 0.7 0.0 - 1.0 07/07/2018 [facility] Automated blood neutrophil count 11.7 2.1 - 6.9 07/07/2018 [facility] Blood lymphocytes count (number/volume) 1.4 1.0 - 3.2 07/07/2018 [facility] Blood monocytes automated count (number/volume) 0.6 0.2 - 0.8 07/07/2018 [facility] Automated blood eosinophil count 0.0 0.0 - 0.4 07/07/2018 [facility] Automated blood basophil count (count/volume) 0.0 0.0 - 0.1 07/07/2018 [facility] Absolute Immature Granulocyte (auto 0.09 0 - 0.1 07/07/2018 [facility] Serum or plasma sodium measurement (moles/volume) 135 136 - 145 07/07/2018 [facility] Serum or plasma potassium measurement (moles/volume) 4.4 3.5 - 5.1 07/07/2018 [facility] Serum or plasma chloride measurement (moles/volume) 100 98 - 107 07/07/2018 [facility] Serum or plasma carbon dioxide, total measurement (moles/volume) 26 22 - 29 07/07/2018 [facility] Serum or plasma anion gap 13.4 8 - 16 07/07/2018 [facility] Serum or plasma urea nitrogen measurement (mass/volume) 14 7 - 26 07/07/2018 [facility] Serum or plasma creatinine measurement (mass/volume) 0.97 0.72 - 1.25 07/07/2018 [facility] Serum or plasma urea nitrogen/creatinine mass ratio 14 6 - 25 07/07/2018 [facility] Estimated glomerular filtration rate (GFR) determination > 60 60 07/07/2018 [facility] Glucose measurement 123 74 - 118 07/07/2018 [facility] Serum or plasma calcium measurement (mass/volume) 9.1 8.4 - 10.2 07/07/2018 [facility] Differential Total Cells Counted 100 07/04/2018 [facility] Manual blood neutrophils/100 leukocytes 48 40 - 74 07/04/2018 [facility] Manual blood lymphocytes/100 leukocytes 33 19 - 48 07/04/2018 [facility] Manual blood monocytes/100 leukocytes 9 3.4 - 9.0 07/04/2018 [facility] Manual blood eosinophil count as percentage of total leukocytes 2 0 - 7 07/04/2018 [facility] Manual blood metamyelocytes/100 leukocytes 2 0 - 0 07/04/2018 [facility] Manual blood myelocytes/100 leukocytes 1 0 - 0 07/04/2018 [facility] Blood lymphocytes variant count (number/volume) 5 07/04/2018 [facility] Blood platelets count by estimate (number/volume) ADEQUATE 07/04/2018 [facility] Platelet morphology NORMAL 07/04/2018 [facility] Blood anisocytosis detection by light microscopy SLIGHT 07/04/2018 [facility] RBC morphology NORMAL 07/04/2018 [facility] Prothrombin time (PT) in platelet poor plasma by coagulation assay 13.6 11.9 - 14.5 07/04/2018 [facility] INR in Platelet poor plasma by Coagulation assay 0.95 07/04/2018 [facility] ELECTROLYTES AGAP 10.5 meq/L 10.0 - 20.0 [...] Provider ADM Date DC Date Status Source [facility] [id number] Ayo Roque 07/08/2017 07/09/2017 [facility] Discharged Inpatient (obs) [id number] BINH SETH MD 07/06/2018 07/07/2018 [facility] Procedures Procedure Code Date Perfomer Comments Source Photoselective vaporization of prostate (PVP) with 532 nm laser [id number] 07/06/2018 DORINDA [facility] Cystoscopy and removal of calculus of bladder [id number] [facility] Rotator cuff repair<sup>1</sup> [id number] x 2, [facility]
[2018-10-25 13:24] LABS: BILIRUBIN,URINE NEGATIVE (NEGATIVE); CLARITY,URINE SL CLOUDY (CLEAR); COLOR,URINE YELLOW (YELLOW); KETONES,URINE NEGATIVE (NEGATIVE); LEUKOCYTE ESTERASE ,URINE TRACE (NEGATIVE); NITRITE,URINE NEGATIVE (NEGATIVE); PROTEIN,URINE DIPSTICK 1+ (NEGATIVE); URINE UROBILINOGEN 0.2 mg/dL (0.2 - 1)
[2018-10-25] MEDS ORDERED: ONDANSETRON HCL INJ 2MG/ML 2ML 2 MG/ML VIAL IV STA (13:24)
[2018-10-25] MEDS ORDERED: HYDROMORPHONE 1MG/1ML INJ IV STA (13:24)
[2018-10-25 13:39] LABS: BACTERIA,URINE MODERATE /HPF; WBC,URINE (MAN) 0-5 /HPF (0-5)
[2018-10-25] MEDS ORDERED: HYDROMORPHONE 2MG/ML 2 MG/ML ML IV ONE (13:45)
[2018-10-25 14:04] LABS: BASOPHILS % 0.5 % (0.0-1.0); EOSINOPHILS # (AUTO) 0.2 (0.0-0.4); EOSINOPHILS % 4.6 % (0.0-6.0); HEMATOCRIT 40.3 % (38.2-49.6); LYMPHOCYTES # (AUTO) 1.3 (1.0-3.2); LYMPHOCYTES % 33.6 % (18.0-39.1); MEAN CORPUSCULAR HEMOGLOBIN 29.4 pg (28-32); MEAN CORPUSCULAR HGB CONC 32.3 g/dL (31-35); MEAN CORPUSCULAR VOLUME 91.2 fL (81-99); MONOCYTES # (AUTO) 0.3 (0.2-0.8); MONOCYTES % 7.9 % (4.4-11.3); NEUTROPHILS % 51.9 % (38.7-80.0); PLATELET COUNT 215 x10e3/uL (140-360); RED BLOOD COUNT 4.42 x10e6/uL (4.3-5.7); RED CELL DISTRIBUTION WIDTH 13.5 % (11.7-14.4)
[2018-10-25 14:26] LABS: ALANINE AMINOTRANSFERASE 14 IU/L (0-55); ALBUMIN 3.2 g/dL (3.5-5.0); ALBUMIN/GLOBULIN RATIO 0.8 (0.8-2.0); ALKALINE PHOSPHATASE 65 IU/L (40-150); ANION GAP 11.4 mmol/L (8-16); BLOOD UREA NITROGEN 14 mg/dL (7-26); BUN/CREATININE RATIO 16 (6-25); CALCIUM 9.7 mg/dL (8.4-10.2); CARBON DIOXIDE 26 mmol/L (22-29); CHLORIDE 107 mmol/L (98-107); CREATININE, SERUM 0.88 mg/dL (0.72-1.25); EST GLOMERULAR FILTRATION RATE > 60 ML/MIN (60-); GLUCOSE 85 mg/dL (74-118); POTASSIUM 4.4 mmol/L (3.5-5.1); SODIUM 140 mmol/L (136-145)
--- NOTE | 2018-10-25 16:08 | Diagnostic Imaging Report ---
TECHNIQUE: Magnetic resonance imaging of the RIGHT HIP was performed WITH and WITHOUT injected contrast, 15 cc of intravenous MultiHance. HISTORY: Right leg pain, possible mass, right groin pain, radiates to right buttocks and right upper leg, prostate surgery 3 months ago COMPARISON: CT of the abdomen and pelvis September 30, 2018. FINDINGS: Bone: Prominent bilateral bone marrow edema and hyperemia involving the parasymphyseal region of the pubic bones. Corresponding confluent decreased fatty marrow signal. Joints: Prominent synovitis and likely anterior air within the pubic symphysis. Mild degenerative tearing of the anterosuperior right acetabular labrum. No right hip effusion. Muscle and tendons: The visualized tendons appear intact. Soft tissues: There is a lobulated cavity within the anterior aspect of the prostate, presumably related to the reported recent surgery. A thin tract extends from this cavity to the pubic symphysis (series 7 image 18) disease. General soft tissue edema and hyperemia. Nonspecific diffuse thickening of the urinary bladder wall. 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 Discussed with Dr. Diaz via phone on October 25, 2018 at 1601. Signed by: Anne García.John., M.M.M. on 10/25/2018 4:04 PM
--- NOTE | 2018-10-25 17:02 | NUR ---
DR SUÁREZ AT BEDSIDE FOR RE-EVAL AND DISCUSSING THE CURRENT PLAN OF CARE WITH PATIENT AND FAMILY,VERBALIZED UNDERSTANDING. NO SIGNS OF ACUTE DISTRESS NOTED AT THIS TIME.
[2018-10-25] MEDS ORDERED: HYDROMORPHONE 1MG/1ML INJ IV PRN (17:30)
[2018-10-25] MEDS ORDERED: ONDANSETRON HCL INJ 2MG/ML 2ML 2 MG/ML VIAL IV PRN (17:30)
--- OUTSIDE RECORDS SUMMARY | 2018-10-25 17:52 | XMS REPORT | Clinical Summary ---
Author Author Dasilva [facility] Organization [place] [facility] Address Unknown Phone Unavailable Care Team Providers Care Leaf Stripper Name Role Phone Carlos Peña DO PCP [...] tract infection with hematuria, site unspecified 07/07/2018 [facility] General Internal Medicine - Encounter 07/12/2018 Ruben Seth MD Cysto Retrograde-Bilateral 02/15/2018 Surgery General Surgery Mainor Mims MD 02/15/2018 Anesthesia General Surgery Event Ruben Seth MD 02/15/2018 [facility] General Surgery Encounter Ruben Seth [...] Taken Vital Sign Reading 10/07/2018 4:04 PM MACHINE ROOM ENGINEER Blood Pressure 130/74 10/07/2018 4:04 PM MACHINE ROOM ENGINEER Pulse 62 10/07/2018 4:04 PM MACHINE ROOM ENGINEER Temperature 36.1 C (97 F) 10/07/2018 4:04 PM MACHINE ROOM ENGINEER Respiratory Rate 19 10/07/2018 4:04 PM MACHINE ROOM ENGINEER Oxygen Saturation 95% - Inhaled Oxygen - Concentration 10/03/2018 12:17 PM MACHINE ROOM ENGINEER Weight 76.2 kg (168 lb) 10/03/2018 12:17 PM MACHINE ROOM ENGINEER Height 170.2 cm (5' 7") 10/03/2018 12:17 PM MACHINE ROOM ENGINEER Body Mass Index 26.31 Plan of Treatment Health Maintenance Due Date Last Done Comments COLON CANCER SCREENING 12/08/1995 SHINGLES VACCINES (#1) 12/08/1995 PNEUMOCOCCAL 2010 POLYSACCHARIDE VACCINE AGE 65 AND OVER 65+ PNEUMOCOCCAL VACCINE 07/12/2019 07/12/2018 (2 of 2 - PPSV23) INFLUENZA VACCINE Completed 07/12/2018 Procedures Comments Procedure Name Priority Date/Time Associated Diagnosis NM BONE SCAN WHOLE BODY Routine 10/07/2018 3:51 PM MACHINE ROOM ENGINEER XR HIP 2-3 VIEWS RIGHT Routine 10/07/2018 1:32 PM MACHINE ROOM ENGINEER US DUPLEX VENOUS LOWER Routine 10/07/2018 EXTREMITY BILATERAL 10:37 AM MACHINE ROOM ENGINEER MRI PELVIS W WO CONTRAST Routine 10/06/2018 5:50 [address] ABDOMEN PELVIS W Routine 10/06/2018 CONTRAST 5:35 PM MACHINE ROOM ENGINEER ESTIMATED GFR Routine 10/06/2018 5:53 AM MACHINE ROOM ENGINEER BASIC METABOLIC PANEL Routine 10/06/2018 5:53 AM MACHINE ROOM ENGINEER HC COMPLETE BLD COUNT Routine 10/06/2018 W/AUTO DIFF 5:53 AM MACHINE ROOM ENGINEER ESTIMATED GFR Routine 10/05/2018 5:18 AM MACHINE ROOM ENGINEER BASIC METABOLIC PANEL Routine 10/05/2018 5:18 AM MACHINE ROOM ENGINEER HC COMPLETE BLD COUNT Routine 10/05/2018 W/AUTO DIFF 5:18 AM MACHINE ROOM ENGINEER SURGICAL PATHOLOGY Routine 10/04/2018 REQUEST 1:48 PM MACHINE ROOM ENGINEER AR AN ELECTIVE Routine 10/04/2018 SUPRAGLOTTIC AIRWAY 11:07 AM MACHINE ROOM ENGINEER Procedure Note - Bhavik Burt CRNA - 10/04/2018 11:07 AM MACHINE ROOM ENGINEER Airway Date/Time: 10/04/2018 11:02 AM Performed by: [...] 1 ESTIMATED GFR Routine 10/04/2018 6:13 AM MACHINE ROOM ENGINEER COMPREHENSIVE METABOLIC Routine 10/04/2018 PANEL 6:13 AM MACHINE ROOM ENGINEER PROTHROMBIN TIME WITH INR Routine 10/04/2018 6:13 AM MACHINE ROOM ENGINEER HC COMPLETE BLD COUNT Routine 10/04/2018 W/AUTO DIFF 6:13 AM MACHINE ROOM ENGINEER URINE CULTURE STAT 10/03/2018 6:01 PM MACHINE ROOM ENGINEER GRAM STAIN STAT 10/03/2018 6:01 PM MACHINE ROOM ENGINEER URINALYSIS SCREEN AND STAT 10/03/2018 MICROSCOPY, WITH REFLEX 5:27 PM MACHINE ROOM ENGINEER TO CULTURE XR CHEST 1 VW PORTABLE STAT 10/03/2018 3:42 PM MACHINE ROOM ENGINEER TYPE AND SCREEN Routine 10/03/2018 3:30 PM MACHINE ROOM ENGINEER PARTIAL THROMBOPLASTIN STAT 10/03/2018 TIME (PTT) 3:30 PM MACHINE ROOM ENGINEER PROTHROMBIN TIME WITH INR STAT 10/03/2018 3:30 PM MACHINE ROOM ENGINEER HC COMPLETE BLD COUNT STAT 10/03/2018 W/AUTO DIFF 3:30 PM MACHINE ROOM ENGINEER ECG ED PRELIMINARY Routine 10/03/2018 INTERPRETATION 3:08 PM MACHINE ROOM ENGINEER MRI LUMBAR SPINE WO STAT 10/03/2018 CONTRAST 3:08 PM MACHINE ROOM ENGINEER ECG 12-LEAD STAT 10/03/2018 1:54 PM MACHINE ROOM ENGINEER POC GLUCOSE Routine 07/11/2018 11:40 AM MACHINE ROOM ENGINEER ESTIMATED GFR Routine 07/11/2018 8:40 AM MACHINE ROOM ENGINEER COMPREHENSIVE METABOLIC Routine 07/11/2018 PANEL 8:40 AM MACHINE ROOM ENGINEER HC COMPLETE BLD COUNT Routine 07/11/2018 W/AUTO DIFF 8:40 AM MACHINE ROOM ENGINEER ECHOCARDIOGRAM 2D Routine 07/09/2018 COMPLETE W MMODE SPECTRAL 8:57 PM MACHINE ROOM ENGINEER COLOR DOPPLER ([id number]) ARTERIAL BLOOD GAS STAT 07/09/2018 7:29 PM MACHINE ROOM ENGINEER ECG 12-LEAD STAT 07/09/2018 7:09 PM MACHINE ROOM ENGINEER BLOOD CULTURE, AEROBIC & Routine 07/09/2018 ANAEROBIC 7:03 PM MACHINE ROOM ENGINEER C-REACTIVE PROTEIN STAT 07/09/2018 6:59 PM MACHINE ROOM ENGINEER ESTIMATED GFR STAT 07/09/2018 6:59 PM MACHINE ROOM ENGINEER LIPASE LEVEL STAT 07/09/2018 6:59 PM MACHINE ROOM ENGINEER PHOSPHORUS LEVEL STAT 07/09/2018 6:59 PM MACHINE ROOM ENGINEER PROCALCITONIN STAT 07/09/2018 6:59 PM MACHINE ROOM ENGINEER PROTHROMBIN TIME WITH INR STAT 07/09/2018 6:59 PM MACHINE ROOM ENGINEER PARTIAL THROMBOPLASTIN STAT 07/09/2018 TIME (PTT) 6:59 PM MACHINE ROOM ENGINEER MAGNESIUM LEVEL STAT 07/09/2018 6:59 PM MACHINE ROOM ENGINEER CREATINE KINASE, TOTAL STAT 07/09/2018 (CPK) 6:59 PM MACHINE ROOM ENGINEER TROPONIN STAT 07/09/2018 6:59 PM MACHINE ROOM ENGINEER THYROID STIMULATING STAT 07/09/2018 HORMONE 6:59 PM MACHINE ROOM ENGINEER T4, FREE STAT 07/09/2018 6:59 PM MACHINE ROOM ENGINEER LACTIC ACID LEVEL STAT 07/09/2018 6:59 PM MACHINE ROOM ENGINEER IONIZED CALCIUM STAT 07/09/2018 6:59 PM MACHINE ROOM ENGINEER COMPREHENSIVE METABOLIC STAT 07/09/2018 PANEL 6:59 PM MACHINE ROOM ENGINEER HC COMPLETE BLD COUNT STAT 07/09/2018 W/AUTO DIFF 6:59 PM MACHINE ROOM ENGINEER B NATRIURETIC PEPTIDE STAT 07/09/2018 6:59 PM MACHINE ROOM ENGINEER BLOOD CULTURE, AEROBIC & Routine 07/09/2018 ANAEROBIC 6:59 PM MACHINE ROOM ENGINEER XR CHEST 1 VW PORTABLE STAT 07/09/2018 6:52 PM MACHINE ROOM ENGINEER POC GLUCOSE Routine 07/09/2018 6:06 PM MACHINE ROOM ENGINEER GRAM STAIN Routine 07/08/2018 5:10 PM MACHINE ROOM ENGINEER RESPIRATORY CULTURE Routine 07/08/2018 5:10 PM MACHINE ROOM [address] ABDOMEN PELVIS W WO STAT 07/08/2018 CONTRAST 10:28 AM MACHINE ROOM ENGINEER ESTIMATED GFR Routine 07/08/2018 9:31 AM MACHINE ROOM ENGINEER BASIC METABOLIC PANEL Routine 07/08/2018 9:31 AM MACHINE ROOM ENGINEER HC COMPLETE BLD COUNT Routine 07/08/2018 W/AUTO DIFF 9:31 AM MACHINE ROOM ENGINEER VENOUS BLOOD GAS Routine 07/08/2018 6:14 AM MACHINE ROOM ENGINEER ECG 12-LEAD STAT 07/08/2018 5:55 AM MACHINE ROOM ENGINEER TROPONIN Timed 07/08/2018 3:44 AM MACHINE ROOM ENGINEER LACTIC ACID LEVEL, SEPSIS Timed 07/08/2018 - NOW AND REPEAT 2X EVERY 3:44 AM MACHINE ROOM ENGINEER [address] ANGIOGRAM PE CHEST STAT 07/08/2018 12:24 AM MACHINE ROOM ENGINEER TROPONIN Timed 07/08/2018 12:19 AM MACHINE ROOM ENGINEER LACTIC ACID LEVEL, SEPSIS Timed 07/08/2018 - NOW AND REPEAT 2X EVERY 12:19 AM MACHINE ROOM ENGINEER 3 HOURS ECG 12-LEAD STAT 07/08/2018 12:02 AM MACHINE ROOM ENGINEER CONSULT TO SEPSIS Routine 07/07/2018 Sepsis, due to RESPONSE TEAM 9:38 PM MACHINE ROOM ENGINEER unspecified organism (HCC) BLOOD CULTURE, AEROBIC & Routine 07/07/2018 ANAEROBIC 8:51 PM MACHINE ROOM ENGINEER ECG ED PRELIMINARY Routine 07/07/2018 INTERPRETATION 8:49 PM MACHINE ROOM ENGINEER AR CRITICAL CARE, E/M Routine 07/07/2018 30-74 MINUTES 8:49 PM MACHINE ROOM ENGINEER URINALYSIS SCREEN AND STAT 07/07/2018 MICROSCOPY, WITH REFLEX 8:43 PM MACHINE ROOM ENGINEER TO CULTURE GRAM STAIN STAT 07/07/2018 8:43 PM MACHINE ROOM ENGINEER URINE CULTURE STAT 07/07/2018 8:43 PM MACHINE ROOM ENGINEER ESTIMATED GFR STAT 07/07/2018 8:38 PM MACHINE ROOM ENGINEER B NATRIURETIC PEPTIDE STAT 07/07/2018 8:38 PM MACHINE ROOM ENGINEER TROPONIN STAT 07/07/2018 8:38 PM MACHINE ROOM ENGINEER LIPASE LEVEL STAT 07/07/2018 8:38 PM MACHINE ROOM ENGINEER LACTIC ACID LEVEL, SEPSIS STAT 07/07/2018 - NOW AND REPEAT 2X EVERY 8:38 PM MACHINE ROOM ENGINEER 3 HOURS HEPATIC FUNCTION PANEL STAT 07/07/2018 8:38 PM MACHINE ROOM ENGINEER BASIC METABOLIC PANEL STAT 07/07/2018 8:38 PM MACHINE ROOM ENGINEER HC COMPLETE BLD COUNT STAT 07/07/2018 W/AUTO DIFF 8:38 PM MACHINE ROOM ENGINEER ECG 12-LEAD STAT 07/07/2018 8:37 PM MACHINE ROOM ENGINEER BLOOD CULTURE, AEROBIC & Routine 07/07/2018 ANAEROBIC 8:35 PM MACHINE ROOM ENGINEER XR CHEST 1 VW PORTABLE STAT 07/07/2018 8:32 PM MACHINE ROOM ENGINEER FL PYELOGRAM RETROGRADE Routine 02/15/2018 2:31 PM [...] Bone Scan Whole Body (10/07/2018 3:51 PM MACHINE ROOM ENGINEER) Narrative Performed At Procedure:NM BONE SCAN WHOLE [...] seen IMPRESSION: Negative whole-body bone scan exam. [id number] Procedure Note Interface, Radiology Results Incoming - 10/07/2018 4:52 PM MACHINE ROOM ENGINEER Procedure:NM BONE SCAN WHOLE BODY REFERRING PHYSICIAN:RUBEN [...] seen IMPRESSION: Negative whole-body bone scan exam. [facility][id number] Performing Organization Address City/State/Zipcode Phone Number [facility] [address] [place] [address] * XR Hip 2-3 View Right (10/07/2018 1:32 PM MACHINE ROOM ENGINEER) Narrative Performed At EXAMINATION:XR HIP 2-3 VIEWS RIGHT [facility] CLINICAL H[facility]ORY:hip pain COMPARISON:None. TECHNIQUE: [...] Negative for fracture or focal bony lesion. [id number] Procedure Note Interface, Radiology Results Incoming - 10/07/2018 3:51 PM MACHINE ROOM ENGINEER EXAMINATION: XR HIP 2-3 VIEWS RIGHT CLINICAL [...] Negative for fracture or focal bony lesion. [facility] [id number] Performing Organization Address [facility]/Zipcode Phone Number [facility] [address] [place] [address] * Us duplex venous lower extremity (10/07/2018 10:37 AM MACHINE ROOM ENGINEER) Narrative Performed At EXAMINATION:US DUPLEX VENOUS LOWER [...] is no evidence of deep venous thrombosis. [facility]-[id number] Procedure Note Interface, Radiology Results Incoming - 10/07/2018 10:45 AM MACHINE ROOM ENGINEER EXAMINATION: US DUPLEX VENOUS LOWER EXTREMITY BILATERAL [...] is no evidence of deep venous thrombosis. [facility]-[id number] Performing Organization Address [facility]/Zipcode Phone Number [facility] [address] [place] [address] * MRI Pelvis W Wo Contrast (10/06/2018 5:50 PM MACHINE ROOM ENGINEER) Narrative Performed At [facility] EXAMINATION:MRI PELVIS W [...] evidence of abscess formation or inflammatory changes. [id number] Procedure Note Interface, Radiology Results Incoming - 10/06/2018 6:35 PM MACHINE ROOM ENGINEER EXAMINATION: MRI PELVIS W WO CONTRAST CLINICAL [...] evidence of abscess formation or inflammatory changes. [id number]-[id number] Performing Organization Address City/State/Zipcode Phone Number [facility] [address] [place] [address] * CT Abdomen Pelvis W Contrast (10/06/2018 5:35 PM MACHINE ROOM ENGINEER) Narrative Performed At EXAMINATION:CT ABDOMEN PELVIS W [...] with maximum diameter of 3.4 cm, unchanged. [facility]-[id number] Procedure Note Interface, Radiology Results Incoming - 10/06/2018 5:55 PM MACHINE ROOM ENGINEER EXAMINATION: CT ABDOMEN PELVIS W CONTRAST CLINICAL [...] with maximum diameter of 3.4 cm, unchanged. [facility]-[id number] Performing Organization Address City/[facility]/Zipcode Phone Number [facility] [address] [place] [address] * Estimated GFR (10/06/2018 5:53 AM MACHINE ROOM ENGINEER) Only the most recent of 7 results within the time period is included. Estimated GFR 85 mL/min/1.73 m2 [facility] Comment: [facility] CatergoryUnitsInte rpretation G1 >=90 Normal or high G2 60-89Mildly decreased [id number] Mildly to moderately decreased [id number] Moderately to severely decreased G4 15-29Severely decreased G5 <15Kidney failure The eGFR was calculated using the Chronic Kidney Disease Epidemiology Collaboration (CKD-EPI) equation. Interpretation is based on recommendations of the National Kidney Foundation-Kidney Disease Outcomes Quality Initiative (NKF-KDOQI) published in 2014. Specimen Plasma specimen Performing Organization Address City/[facility]/Zipcode Phone Number [facility] DEPARTMENT OF [address] [place] [phone] PATHOLOGY AND GENOMIC MEDICINE [place] [address] [address] * CBC with platelet and differential (10/06/2018 5:53 AM MACHINE ROOM ENGINEER) Only the most recent of 9 results within the time period is included. WBC 6.1 4.2 - 11.0 k/uL [facility] RBC 4.07 4.04 - 5.86 m/uL [facility] HGB 12.0 (L) 13.0 - 17.3 g/dL [facility] HCT 37.8 34.0 - 45.0 % [facility] MCV 92.9 80.0 - 98.0 fL [facility] MCH 29.5 27.0 - 34.0 pg [facility] MCHC 31.7 31.5 - 36.5 g/dL [facility] RDW - SD 46.1 37.0 - 51.0 fL [facility] MPV 9.6 7.4 - 10.4 fL [facility] Platelet count 238 150 - 400 k/uL [facility] Nucleated RBC 0.00 /100 WBC [facility] Neutrophils 52.7 36.0 - 66.0 % [facility] Lymphocytes 32.8 24.0 - 44.0 % [facility] Monocytes 10.3 (H) 0.0 - 6.0 % [facility] Eosinophils 2.6 0.0 - 6.0 % [facility] Basophils 0.5 0.0 - 1.2 % [facility] Immature granulocytes 1.1 (H) 0.0 - 1.0 % [facility] Specimen Blood Performing Organization Address City/State/Zipcode Phone Number [facility] [place] [address] [facility] [place] [phone] PATHOLOGY AND GENOMIC MEDICINE [address] * Basic metabolic panel (10/06/2018 5:53 AM MACHINE ROOM ENGINEER) Only the most recent of 6 results within the time period is included. Sodium 141 135 - 150 mEq/L [facility] Potassium 4.1 3.5 - 5.0 mEq/L [facility] Chloride 104 98 - 112 mEq/L [facility] CO2 27 24 - 31 mmol/L [facility] Anion gap 10@ANIO 7 - 15 mEq/L [facility] BUN 14 7 - 18 mg/dL [facility] Creatinine 0.90 0.70 - 1.20 mg/dL [facility] Glucose 98 65 - 100 mg/dL [facility] Calcium 8.6 (L) 8.8 - 10.2 mg/dL [facility] Specimen Plasma specimen Performing Organization Address City/State/Zipcode Phone Number [facility] [address] [facility] [address] PATHOLOGY AND GENOMIC MEDICINE [address] * Surgical pathology request (10/04/2018 1:48 PM MACHINE ROOM ENGINEER) [facility] [place]Y AND GENOMIC MEDICINE Surgical pathology report See link below for PDF Lab [facility] [place] Report PATHOLOGY AND GENOMIC MEDICINE Result status This is Final Report for [facility] [place] [place] [id number] PATHOLOGY AND GENOMIC MEDICINE Performing Organization Address City/[facility] Centercode Phone Number [address] [place] [address] PATHOLOGY AND GENOMIC MEDICINE * Prothrombin time with INR (10/04/2018 6:13 AM MACHINE ROOM ENGINEER) Only the most recent of 4 results within the time period is included. Prothrombin time 13.9 11.5 - 14.5 sec [facility] INR 1.10 [facility] Comment: [facility] For patients on anticoagulant therapy, reference ranges below: Indication: INR Value Treatment of Venous Thrombosis, 2.0-3.0 pulmonary emboli, or prophylaxis of a venous thrombosis, or systemic emboli. High dose, high risk patients 3.0-4.5 with mechanical valves. NOTE:INR values over 3.0 are sometimes associated with gastrointestinal hemorrhage, especially values over 4.0. Specimen Blood Performing Organization Address City/[facility] Centercode Phone Number [facility] [address] [facility]. [place] [phone] PATHOLOGY AND GENOMIC MEDICINE [address] * Comprehensive metabolic panel (10/04/2018 6:13 AM MACHINE ROOM ENGINEER) Only the most recent of 3 results within the time period is included. Sodium 141 135 - 150 mEq/L [facility] Potassium 4.2 3.5 - 5.0 mEq/L [facility] Chloride 107 98 - 112 mEq/L [facility] CO2 24 24 - 31 mmol/L [facility] Anion gap 10@ANIO 7 - 15 mEq/L [facility] BUN 12 7 - 18 mg/dL [facility] Creatinine 0.90 0.70 - 1.20 mg/dL [facility] Glucose 117 (H) 65 - 100 mg/dL [facility] Calcium 8.7 (L) 8.8 - 10.2 mg/dL [facility] Protein 6.4 6.3 - 8.3 g/dL [facility] Albumin 2.9 (L) 3.5 - 5.0 g/dL [facility] A/G ratio 0.8 0.7 - 3.8 [facility] Alkaline phosphatase 58 0 - 129 U/L [facility] AST 18 10 - 50 U/L [facility] ALT 19 5 - 50 U/L [facility] Total bilirubin 0.4 0.2 - 1.2 mg/dL [facility] Specimen Plasma specimen Performing Organization Address City/State/Zipcode Phone Number [facility] [place] [address] [place] [address] PATHOLOGY AND GENOMIC MEDICINE [address] * Gram stain (10/03/2018 6:01 PM MACHINE ROOM ENGINEER) Only the most recent of 3 results within the time period is included. Gram stain result Few WBC's [facility] No organisms seen HOSPITAL Comment: Specimen Information Specimen Source: Urine Specimen Site: Clean catch Specimen Urine Performing Organization Address City/State/Zipcode Phone Number [facility] DEPARTMENT OF [address] [place] [address] PATHOLOGY AND GENOMIC MEDICINE [address] [address] [facility] * Urine culture (10/03/2018 6:01 PM MACHINE ROOM ENGINEER) Only the most recent of 2 results within the time period is included. Urine culture isolate No growth after 24 hours [facility] Comment: HOSPITAL Specimen Information Specimen Source: Urine Specimen Site: Clean catch Specimen Urine Performing Organization Address City/[facility]/Zipcode Phone Number [facility] DEPARTMENT OF [address] [place] [address] PATHOLOGY AND GENOMIC MEDICINE [facility] [address] [place] [address] [facility] * Urinalysis screen and microscopy, with reflex to culture (10/03/2018 5:27 PM MACHINE ROOM ENGINEER) Only the most recent of 2 results within the time period is included. Specimen site Clean catch [facility] Color, UA Yellow [facility] Appearance, UA Clear [facility] Specific gravity, UA 1.008 1.001 - 1.035 [facility] pH, UA 7.0 5.0 - 8.5 [facility] Protein, UA Negative Negative [facility] Glucose, UA Negative Negative [facility] Ketones, UA Negative Negative [facility] Bilirubin, UA Negative Negative [facility] Blood, UA Negative Negative [facility] Nitrite, UA Negative Negative [facility] Urobilinogen, UA Negative <2.0 [facility] Leukocyte esterase, UA Large (A) Negative [facility] Epithelial cells, UA Few /HPF [facility] WBC, UA 76 (H) 0 - 1 /HPF [facility] RBC, UA 9 (H) 0 - 5 /HPF [facility] Bacteria, UA None seen None seen [facility] Yeast, UA Few (A) [facility] Yeast with pseudohyphae, None seen [facility] Specimen Urine Performing Organization Address City/State/Zipcode Phone Number [facility] [place] [address] [place] [address] PATHOLOGY AND GENOMIC MEDICINE [facility] [address] [place], [place] [phone] [place] [address] * XR Chest 1 Vw Portable (10/03/2018 3:42 PM MACHINE ROOM ENGINEER) Only the most recent of 3 results within the time period is included. Narrative Performed At EXAMINATION:XR CHEST 1 VW PORTABLE [facility] CLINICAL HISTORY:preop COMPARISON:July 09, 2018 IMPRESSION: Lines: None Lungs and pleura: Bibasilar subsegmental atelectasis versus scarring. No consolidations. No pleural effusion or pneumothorax. Heart and mediastinum: Stable appearance of cardiomediastinal silhouette. Bones: No suspicious osseous lesions. [facility] [id number] Procedure Note Hm Interface, Radiology Results Incoming - 10/03/2018 3:49 PM MACHINE ROOM ENGINEER EXAMINATION: XR CHEST 1 VW PORTABLE CLINICAL HISTORY: preop COMPARISON: July 09, 2018 IMPRESSION: Lines: None Lungs and pleura: Bibasilar subsegmental atelectasis versus scarring. No consolidations. No pleural effusion or pneumothorax. Heart and mediastinum: Stable appearance of cardiomediastinal silhouette. Bones: No suspicious osseous lesions. [facility] [place][id number] Performing Organization Address City/[facility]/Zipcode Phone Number [facility] [address] [place] [address] * Partial thromboplastin time, activated (10/03/2018 3:30 PM MACHINE ROOM ENGINEER) Only the most recent of 2 results within the time period is included. PTT 27.5 23.0 - 36.0 sec [facility] Comment: [facility] PTT therapeutic range for unfractionated heparin is 61.0-112.0 seconds which corresponds to Anti-Xa 0.3-0.7 U/ml. Note:Change in Panic Value The PTT Panic Value is changing from 110 sec. to 100 sec. due to new instrumentation and reagents. Correlation studies have been performed to validate this result. Specimen Blood Performing Organization Address [facility] Centercode Phone Number [facility] [place] [address] [place] [address] PATHOLOGY AND GENOMIC MEDICINE [facility] [address] * Type and screen (10/03/2018 3:30 PM MACHINE ROOM ENGINEER) ABO grouping A [facility] Rh type POS [facility] Antibody screen (gel) NEG [facility] Specimen Blood Performing Organization Address City/[facility]/Zipcode Phone Number [facility] [place] [address] [place] [address] PATHOLOGY AND GENOMIC MEDICINE [facility] [place] [address] [facility] * ECG ED Preliminary Interpretation - Not an Order (10/03/2018 3:08 PM MACHINE ROOM ENGINEER) Only the most recent of 2 results within the time period is included. Narrative Performed At Violet Newsome DO 10/04/20188:21 PM ECG ED Preliminary Interpretation - Not an Order Performed by: Violet Newsome DO Authorized by: Violet Newsome DO ECG reviewed by ED Physician in the absence of a sheet metal smith: yes Interpretation: Interpretation: abnormal Rate: ECG rate:59 ECG rate assessment: bradycardic Rhythm: Rhythm: sinus bradycardia Ectopy: Ectopy: none QRS: QRS axis:Left QRS intervals:Normal Conduction: Conduction: normal ST segments: ST segments:Normal T waves: T waves: normal * MRI Lumbar Spine Wo Contrast (10/03/2018 3:08 PM MACHINE ROOM ENGINEER) Narrative Performed At [facility] EXAMINATION: MRI [...] the lower lumbar spine without significant stenosis. [id number] Procedure Note Hm Interface, Radiology Results Incoming - 10/03/2018 3:21 PM MACHINE ROOM ENGINEER EXAMINATION: MRI LUMBAR SPINE WO CONTRAST CLINICAL [...] the lower lumbar spine without significant stenosis. [facility]-[id number] Performing Organization Address [facility]/Zipcode Phone Number [facility] [address] [place] [address] * ECG 12 lead (10/03/2018 1:54 PM MACHINE ROOM ENGINEER) Only the most recent of 5 results within the time period is included. Ventricular rate 59 [facility] MUSE Atrial rate 59 [facility] MUSE AR interval 164 [facility] M[facility] QRSD interval 142 [...] lengthened- Narrative Performed At Performing Organization Address [facility] Phone Number [facility] MUSE [address] [place] [address] * POC glucose (07/11/2018 11:40 AM MACHINE ROOM ENGINEER) Only the most recent of 2 results within the time period is included. POC glucose 97 65 - 100 mg/dL [facility] Comment: [facility] Meter ID: [id number] Rubber Splicer: Alda Barakat Performing Organization Address City/[facility]/Zipcode Phone Number [facility] DEPARTMENT OF [facility] [place] [address] PATHOLOGY AND GENOMIC MEDICINE [place] [facility] [facility] R[facility] [address] [place], [place] [id number] [place] [address] * Echocardiogram complete w contrast and 3D if needed (07/09/2018 8:57 PM MACHINE ROOM ENGINEER) Ao Root Diameter 3.43 cm [facility] [...] [facility] AoV area i VTI BSA [place] 1.26 cm2/m2 [facility] MR Vmax 4.93 [...] Address City/State/Zipcode Phone Number [facility] [address] [place] [address] * Arterial blood gas (07/09/2018 7:29 PM MACHINE ROOM ENGINEER) Rubber Splicer germain owens [facility] Collection site rra [facility] O2 therapy nc [facility] pH, arterial 7.462 (H) 7.350 - 7.450 units [facility] pCO2, arterial 35.9 35.0 - 45.0 mmHg [facility] pO2, arterial 80.4 80.0 - 90.0 mmHg [facility] O2 saturation, arterial 96.4 95.0 - 100.0 % [facility] Base excess, arterial 1.8 mEq/L [facility] Bicarbonate 25.6 21.0 - 28.0 mEq/L [facility] O2 content 17.7 VOL% [facility] FiO2, inspired O2% 28.0 % [facility] Carboxyhemoglobin 0.3 0.0 - 1.4 % [facility] Comment: [facility] Reference Ranges: Carboxyhemoglobin Non smoker: 0.0 - 2.0% Smoker: 2.1 - 5.0% Heavy smoker: 5.1 - 9% Methemoglobin 1.5 (H) 0.0 - 1.0 % [facility] Hemoglobin, blood gas 13.3 (L) 14.0 - 18.0 g/dL [facility] pO2, A-a 76.7 mmHg [facility] Specimen Blood Performing Organization Address City/[facility]/Zipcode Phone Number [facility] [place] [place] OF [address] [phone] PATHOLOGY AND GENOMIC MEDICINE [facility] [address] * Blood culture, aerobic & anaerobic (07/09/2018 7:03 PM MACHINE ROOM ENGINEER) Only the most recent of 4 results within the time period is included. Blood culture isolate No growth after 5 days of [facility] incubation. HOSPITAL Comment: Specimen Information Specimen Source: Blood Specimen Site: Peripheral Hand Left Specimen Blood Performing Organization Address City/State/Zipcode Phone Number [facility] DEPARTMENT OF [address] [place] [address] PATHOLOGY AND GENOMIC MEDICINE [address] * Procalcitonin (07/09/2018 6:59 PM MACHINE ROOM ENGINEER) Procalcitonin 19.90 (H) <=0.07 ng/mL [facility] Comment: INTERPRETIVE INFORMATION: Procalcitonin Effective February 07, 2018, this test is performed by the [employer] Procalcitonin assay. A correction has been [...] condition(s) of the individual patient. Performed at: [facility] [address] [place] [id number] Specimen Serum Performing Organization Address City/State/Zipcode Phone Number [facility] [address] [place] [address] [facility] [address] [place] [address] * Troponin (07/09/2018 6:59 PM MACHINE ROOM ENGINEER) Only the most recent of 4 results within the time period is included. Troponin <0.30 0.00 - 0.30 ng/mL [place] Comment: [facility] 0.11 - 1.49 ng/mlMay indicate increased risk of acute coronary syndrome. >=1.5 ng/ml Consistent with acute myocardial infarction. The diagnostic value of a single normal or non-diagnostic result is questionable.Serial samples at 2-6 hour intervals are required to rule out acute myocardial injury. Specimen Plasma specimen Performing Organization Address City/State/Zipcode Phone Number [facility] [place] [id number] [place] [address] PATHOLOGY AND GENOMIC MEDICINE [place] [address] [place], [place] [phone] [place] [address] * C-reactive protein (07/09/2018 6:59 PM MACHINE ROOM ENGINEER) CRP 9.65 (H) 0.00 - 0.50 mg/dL [facility] Specimen Plasma specimen Performing Organization Address City/[facility] Phone Number [facility] [place] OF [address] [place] [address] PATHOLOGY AND GENOMIC MEDICINE [place] [address] [address] * Thyroid stimulating hormone (07/09/2018 6:59 PM MACHINE ROOM ENGINEER) TSH 0.30 0.27 - 4.20 uIU/mL [facility] Specimen Plasma specimen Performing Organization Address City/[facility] Phone Number [facility] [place] OF [facility] [place] [address] PATHOLOGY AND GENOMIC MEDICINE [address] * T4, free (07/09/2018 6:59 PM MACHINE ROOM ENGINEER) T4, free 0.90 0.90 - 1.70 ng/dL [facility] Specimen Plasma specimen Performing Organization Address City/[facility] Phone Number [facility] [place] [place] [address] [place] [address] PATHOLOGY AND GENOMIC MEDICINE [address] * Phosphorus level (07/09/2018 6:59 PM MACHINE ROOM ENGINEER) Phosphorus 2.8 2.4 - 4.5 mg/dL [facility] Specimen Plasma specimen Performing Organization Address City/[facility] Phone Number [facility] [place] OF [address] [place] [address] [place] [address] PATHOLOGY AND GENOMIC MEDICINE [address] * B natriuretic peptide (07/09/2018 6:59 PM MACHINE ROOM ENGINEER) Only the most recent of 2 results within the time period is included. BNP 297 (H) 0 - 100 pg/mL [facility] Specimen Blood Performing Organization Address City/[facility] Cent[facility] Phone Number [facility] [place] OF [facility] [place] [address] PATHOLOGY AND GENOMIC MEDICINE [address] * Magnesium level (07/09/2018 6:59 PM MACHINE ROOM ENGINEER) Magnesium 2.00 1.60 - 2.40 mg/dL [facility] Specimen Plasma specimen Performing Organization Address City/[facility] Centercode Phone Number [facility] [place] OF [address] [facility] [place] [address] PATHOLOGY AND GENOMIC MEDICINE [address] * Lipase level (07/09/2018 6:59 PM MACHINE ROOM ENGINEER) Only the most recent of 2 results within the time period is included. Lipase 16 13 - 60 U/L [facility] Specimen Plasma specimen Performing Organization Address [facility] Centerc[facility] Phone Number [facility] [place] [address] [place] [address] PATHOLOGY AND GENOMIC MEDICINE [address] * Lactic acid level (07/09/2018 6:59 PM MACHINE ROOM ENGINEER) Lactic acid 1.7 0.5 - 2.2 mmol/L [facility] Specimen Blood Performing Organization Address [facility] Phone Number [facility] [place] OF [address] [facility] [place] [address] PATHOLOGY AND GENOMIC MEDICINE [address] * Creatine kinase, total (CPK) (07/09/2018 6:59 PM MACHINE ROOM ENGINEER) Creatine kinase 69 39 - 308 U/L [facility] Specimen Plasma specimen Performing Organization Address [facility] Cent[facility] Phone Number [facility] [place] OF [address] [place] [address] PATHOLOGY AND GENOMIC MEDICINE [address] * Ionized calcium (07/09/2018 6:59 PM MACHINE ROOM ENGINEER) pH 7.40 [facility] Ionized calcium 1.16 1.11 - 1.32 mmol/L [facility] Specimen Plasma specimen Performing Organization Address City/State/Zipcode Phone Number [facility] [place] OF [address] [place] [address] PATHOLOGY AND GENOMIC MEDICINE [facility] [place] [address] [place], [place] [id number] [place] [address] * Respiratory culture (07/08/2018 5:10 PM MACHINE ROOM ENGINEER) Respiratory culture Normal oral richard isolated. [facility] isolate Comment: HOSPITAL Specimen Information Specimen Source: Bronchial Washing Specimen Site: All Lobes Specimen Bronchial washing - Washing Performing Organization Address City/[facility]/Zipcode Phone Number [facility] DEPARTMENT OF [address] [place] [address] PATHOLOGY AND GENOMIC MEDICINE [facility] [address] * CT Abdomen Pelvis W Wo Contrast (07/08/2018 10:28 AM MACHINE ROOM ENGINEER) Narrative Performed At EXAMINATION:CT ABDOMEN PELVIS W WO CONTRAST [facility] CLINICAL HISTORY:Abnormal findings on diagnostic imaging of other parts of digestive tract, liver [id number] cm possible liver lesion TECHNIQUE: Multiple axial [...] factors High risk patients: *Greater than 20 hlok-dhhn-audl history of smoking, or equivalent second hand [...] short axes rounded to the nearest mm. [id number] Procedure Note Hm Interface, Radiology Results Incoming - 07/08/2018 10:54 AM MACHINE ROOM ENGINEER EXAMINATION: CT ABDOMEN PELVIS W WO CONTRAST [...] High risk patients: * Greater than 20 dtid-xsgb-xhox history of smoking, or equivalent second hand [...] short axes rounded to the nearest mm. [facility][id number] Performing Organization Address City/State/Zipcode Phone Number [facility] [address] [place] [address] * Venous blood gas (07/08/2018 6:14 AM MACHINE ROOM ENGINEER) Rubber Splicer [id number] [facility] Collection site R HAND [facility] pH, venous 7.423 (H) 7.320 - 7.420 units [facility] pCO2, venous 44.1 (L) 45.0 - 51.0 mmHg [facility] pO2, venous 59.3 (H) 25.0 - 40.0 mmHg [facility] O2 saturation, venous 91.3 (H) 40.0 - 70.0 % [facility] Base excess, venous 4.3 (H) -2.0 - 2.0 mEq/L [facility] Bicarbonate 28.8 (H) 21.0 - 28.0 mEq/L [facility] O2 content 17.1 VOL% [facility] FiO2, inspired O2% 21.0 % [facility] Carboxyhemoglobin 0.9 0.0 - 1.4 % [facility] Comment: [facility] Reference Ranges: Carboxyhemoglobin Non smoker: 0.0 - 2.0% Smoker: 2.1 - 5.0% Heavy smoker: 5.1 - 9% Methemoglobin 1.3 (H) 0.0 - 1.0 % [facility] Hemoglobin, blood gas 13.6 (L) 14.0 - 18.0 g/dL [facility] Specimen Blood Performing Organization Address City/[facility] [place] [address] PATHOLOGY AND GENOMIC MEDICINE [address] * Lactic acid level, SEPSIS - Now and repeat 2x every 3 hours (07/08/2018 3:44 AM MACHINE ROOM ENGINEER) Only the most recent of 3 results within the time period is included. Lactic acid 1.2 0.5 - 2.2 mmol/L [facility] Specimen Blood Performing Organization Address City/[facility] [place] [address] PATHOLOGY AND GENOMIC MEDICINE [address] * CT Angiogram Pe Chest (07/08/2018 12:24 AM MACHINE ROOM ENGINEER) Narrative Performed At EXAMINATION: [facility] CT [...] are seen of left renal collecting system. [facility]-[id number] Procedure Note [facility], Radiology Results Incoming - 07/08/2018 12:45 AM MACHINE ROOM ENGINEER EXAMINATION: CT ANGIOGRAM PE CHEST CLINICAL HISTORY: [...] are seen of left renal collecting system. [facility]-[id number] Performing Organization Address City/State/Zipcode Phone Number [facility] [address] [place] [address] * Sepsis Clinical Assessment (07/07/2018 9:38 PM MACHINE ROOM ENGINEER) Narrative Performed At Robert Rich NP 07/08/20186:24 AM Reperfusion assessment done Sepsis Clinical Assessment Performed by: Robert Rich NP Authorized by: Robert Rich NP Sepsis Clinical Assessment General Assessment Information Current sepsis score:2 On comfort care?: No If score does not worsen, snooze alerts until:07/08/2018 09:00 MACHINE ROOM ENGINEER SIRS Criteria Temperature > 38.3 C (101 [...] administrations. * CRITICAL CARE (07/07/2018 8:49 PM MACHINE ROOM ENGINEER) Narrative Performed At Herminio Dick MD 07/08/2018 [...] * Hepatic function panel (07/07/2018 8:38 PM MACHINE ROOM ENGINEER) Albumin 3.2 (L) 3.5 - 5.0 g/dL [facility] Total bilirubin 0.9 0.2 - 1.2 mg/dL [facility] Bilirubin direct 0.2 0.0 - 0.4 mg/dL [facility] Alkaline phosphatase 57 0 - 129 U/L [facility] Protein 6.3 6.3 - 8.3 g/dL [facility] ALT 17 5 - 50 U/L [facility] AST 26 10 - 50 U/L [facility] Specimen Plasma specimen Performing Organization Address City/State/Zipcode Phone Number [facility] [place] OF [address] [place] [address] PATHOLOGY AND GENOMIC MEDICINE [place] [address] [address] [place], [place] [id number] [place] [address] * [place] Pyelogram Retrograde (02/15/2018 2:31 PM [...] 47 seconds. 4 image(s). Performing Organization Address City/[facility]/Zipcode Phone Number [facility] [address] [place] [address] * ECG Pre/Post Op (02/10/2018 12:41 PM CDT) Ventricular rate 49 [facility] M[facility] Atrial rate 49 [facility] M[facility] AR interval 136 [facility] QRSD interval 130 [...] block) is now present- Performing Organization Address [facility] Phone Number [facility] [address] [place] [address] * Estimated GFR (02/10/2018 12:20 PM CDT) Only the most recent of 2 results within the time period is included. GFR Non Af Amer 73 mL/min/1.73 m2 [facility] [place] OF PATHOLOGY AND GENOMIC MEDICINE GFR Af Amer 89 mL/min/1.73 m2 [facility] [place] [place] OF Comment: PATHOLOGY [...] Americans. Specimen Plasma specimen Performing Organization Address City/[facility]/Zipcode Phone Number [facility] [address] [place] [address] PATHOLOGY AND GENOMIC MEDICINE * CBC hemogram (01/11/2018 11:43 AM CDT) WBC 4.0 (L) 4.2 - 11.0 k/uL [facility] [place] [place] PATHOLOGY AND GENOMIC MEDICINE RBC 4.90 4.04 - 5.86 m/uL [facility] [place] [place] OF PATHOLOGY AND GENOMIC MEDICINE HGB 14.4 13.0 - 17.3 g/dL [facility] [place] OF PATHOLOGY AND GENOMIC MEDICINE HCT 45.0 34.0 - 45.0 % [facility] [place] OF PATHOLOGY AND GENOMIC MEDICINE MCV 91.8 80.0 - 98.0 fL [facility] [place] [place] OF PATHOLOGY AND GENOMIC MEDICINE MCH 29.4 27.0 - 34.0 pg [facility] [place] OF PATHOLOGY AND GENOMIC MEDICINE MCHC 32.0 31.5 - 36.5 g/dL [facility] [place] OF PATHOLOGY AND GENOMIC MEDICINE RDW - SD 48.1 37.0 - 51.0 fL [facility] [place] [place] OF PATHOLOGY AND GENOMIC MEDICINE MPV 10.9 (H) 7.4 - 10.4 fL [facility] [place] OF PATHOLOGY AND GENOMIC MEDICINE Platelet count 171 150 - 400 k/uL [facility] [place] OF PATHOLOGY AND GENOMIC MEDICINE Nucleated RBC 0.00 /100 WBC [facility] [place] OF PATHOLOGY AND GENOMIC MEDICINE Specimen Blood Performing Organization Address City/[facility] Centercode Phone Number [facility] [address] [place] [address] PATHOLOGY AND GENOMIC MEDICINE * Prostate specific antigen (01/11/2018 11:43 AM CDT) PSA 5.1 (H) 0.0 - 4.0 ng/mL [facility] DEPARTMENT OF Comment: PATHOLOGY AND The HAO 8000 PSA immunoassay [facility] was used. Results obtained with different assay methods or kits should not be used interchangeably and may be different. Specimen Plasma specimen Performing Organization Address City/State/Zipcode Phone Number [facility] DEPARTMENT OF [address] [place] [address] PATHOLOGY AND [employer] MEDICINE * [place] Prostate (01/11/2018 11:38 AM [...] Performing Organization Address City/State/Zipcode Phone Number [facility] [address] [place] [address] after 10/24/2017 Insurance Payer Benefit Subscriber ID Type Phone Address Plan / Group MEDICARE MEDICARE xxxxxxxxxx Medicare [place], [place] PART A AND B [employer] Advance Directives Patient has advance care planning documents on file. For more information, eduardo manuel contact: Dasilva Protestant [address] [place] [address]
[2018-10-25] MEDS ORDERED: PIPER-TAZ 3.375 GM 50 ML IV SCH (18:00)
[2018-10-25 19:30] VITALS: BP 130/79
[2018-10-25] MEDS ORDERED: MEROPENEM 1GM 100 ML IV NR (19:30)
--- NOTE | 2018-10-25 19:30 | NUR ---
patient received to room 284 via stretcher from the ER. No c/o pain noted at this time. ivf infusing without difficulty. family noted at the bedside. admission assessment/history complete. patient instructed to call for assistance when needed.
[2018-10-25] MEDS: SODIUM CHLORIDE 0.9% 1000ML 1,000 ML IV SCH (21:25)
[2018-10-25] MEDS: VANCOMYCIN 1GM/NS 250 ML 250 ML IV SCH (21:25)
[2018-10-25 21:30] VITALS: BP 130/79
[2018-10-25] MEDS ORDERED: TRAZODONE HCL 50 MG TAB PO PRN (21:30)
[2018-10-25] MEDS: HYDROMORPHONE 2MG/ML 2 MG/ML ML IV PRN (22:15)
--- NOTE | 2018-10-25 22:15 | NUR ---
patient medicated with dilaudid 1 mg ivp for c/o lower extremity pain 02/15 at this time. will continue to monitor.
--- NOTE | 2018-10-25 22:25 | NUR ---
patient refuses vital signs through the night. patient states, " Please don't wake me up for anything. I just want to sleep. " remains at the bedside.
--- NOTE | 2018-10-26 01:54 | Consultation ---
DATE OF CONSULTATION: REASON FOR CONSULTATION: Lower extremity cellulitis. HISTORY OF PRESENT ILLNESS: This patient who is a 72-year-old male comes into the emergency room here from [facility] with history of lower extremity pain. The patient, who has a history of hypertension, history of UTI, and history of prostatitis, comes into the emergency room with the above complaint. 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 LABORATORY DATA: Still pending. White count 3.93, hemoglobin 13. Sodium 140, potassium 4.4, creatinine 0.88. PHYSICAL EXAMINATION: GENERAL: He is currently alert and oriented, does not seem to be in acute distress. VITAL SIGNS: Stable, afebrile. HEENT: He is not icteric. NECK: Supple. CHEST: Clear. HEART: S1, S2. No S3, S4, or murmur. ABDOMEN: Soft. Bowel sounds present. No tenderness. IMPRESSION/PLAN: Osteomyelitis. Obtain sed rate, C-reactive protein. Obtain blood cultures. We will put him on vancomycin and Rocephin and obtain urine cultures. We will discuss with Urology. Further recommendations to follow. MD TERI Crews/PAWAN /[id number]
--- NOTE | 2018-10-26 05:31 | Consultation ---
DATE OF CONSULTATION: REASON FOR CONSULTATION: Osteomyelitis of the pubic bone and UTI. HISTORY OF PRESENT ILLNESS: This patient is a very pleasant 72-year-old Erit[place] male comes into the emergency room complaining of right hip severe pain, cannot even put any weight on it. He is basically bedbound because of it. The patient is telling me that back on July 05, he underwent TURP by . The next day, he had fever and chills, he went to [facility], where he was admitted with UTI. He was there for 6 days, getting IV antibiotic and then went home with oral antibiotics, but he continued to have fever and chills. He was readmitted on September 07. Another TURP was done and the biopsy revealed severe infection. He grew E. coli. He was there for a week on IV antibiotics. He was seen by Infectious Disease. He was seen by Neurology. He was seen by Neurosurgery. He was seen by Orthopedic because of having pain in his hip and he was told everything has 4-5 MRIs and came back negative, so he was discharged home. He took 1 month of oral antibiotic without any improvement. He continued to have fever and chills. Now, he is coming back with severe pain, had to come to the emergency room. In the emergency room, he comes in with severe pain and no fever or chills, but just severe pain in the hip. An MRI was done, which was significant for pubic symphysis, septic arthritis with associated adjacent bilateral pubic parasymphyseal osteomyelitis likely secondary to communicating with a presumed postsurgical cavity. The patient had a cavity within the anterior aspect of the prostate. The patient is being admitted. I am asked to see him. The patient is lying in bed, complaining of pain as mentioned above. PAST MEDICAL HISTORY: As above. Before that, he was healthy. PAST SURGICAL HISTORY: As above. Before that, he was healthy. ALLERGIES: NKA. SOCIAL HISTORY: There is no smoking, drug abuse, or alcohol abuse. FAMILY HISTORY: Noncontributory. REVIEW OF SYSTEMS: CONSTITUTIONAL: He is feeling fevers he said and feeling fatigued. HEENT: There is no headache, visual changes, or hearing changes. GI: There is no nausea, no vomiting, and no diarrhea. Currently, no urgency or frequency, but he said the urine smells really bad. He cannot put any weight on his legs, mainly the right leg because of the pain. His lab data reviewed. MRI reviewed. Discussed with the patient. The finding discussed with the ER physician. LABORATORY DATA: White count 3.93, hemoglobin 13. His sodium 140, potassium 4.4, creatinine 0.88. I have reviewed some of the records he has with him from Hospital. 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 I would recommend to put him on meropenem 500 IV q.6. Obtain C-reactive protein. He would need long-term IV antibiotic, but he also would need a surgical intervention and evaluation by Urology and perhaps Orthopedic and preferably this could be done in the Medical Center. We will discuss with about the finding of the MRI and the clinical condition. I spent more than an hour evaluating the patient, discussing with him the findings. His family is at the bedside. His son-in-law, who is a physician, [employer]. Also discussed with the ER physician. We will follow. MD TERI Crews/PAWAN /[id number]
[2018-10-26 05:34] LABS: BASOPHILS % 0.5 % (0.0-1.0); EOSINOPHILS # (AUTO) 0.2 (0.0-0.4); EOSINOPHILS % 3.7 % (0.0-6.0); HEMATOCRIT 35.9 % (38.2-49.6); HEMOGLOBIN 11.6 g/dL (14.0-18.0); LYMPHOCYTES # (AUTO) 1.7 (1.0-3.2); LYMPHOCYTES % 41.4 % (18.0-39.1); MEAN CORPUSCULAR HEMOGLOBIN 29.7 pg (28-32); MEAN CORPUSCULAR HGB CONC 32.3 g/dL (31-35); MEAN CORPUSCULAR VOLUME 92.1 fL (81-99); MONOCYTES # (AUTO) 0.4 (0.2-0.8); MONOCYTES % 8.6 % (4.4-11.3); NEUTROPHILS # (AUTO) 1.8 (2.1-6.9); NEUTROPHILS % 44.8 % (38.7-80.0); PLATELET COUNT 193 x10e3/uL (140-360); RED CELL DISTRIBUTION WIDTH 13.6 % (11.7-14.4)
[2018-10-26] MEDS: SODIUM CHLORIDE 0.9% 1000ML 1,000 ML IV SCH ×2 (05:56→17:24)
[2018-10-26 06:01] LABS: ANION GAP 9.3 mmol/L (8-16); BLOOD UREA NITROGEN 13 mg/dL (7-26); BUN/CREATININE RATIO 12 (6-25); CALCIUM 8.8 mg/dL (8.4-10.2); CARBON DIOXIDE 27 mmol/L (22-29); CHLORIDE 107 mmol/L (98-107); EST GLOMERULAR FILTRATION RATE > 60 ML/MIN (60-); GLUCOSE 107 mg/dL (74-118); POTASSIUM 4.3 mmol/L (3.5-5.1); SODIUM 139 mmol/L (136-145)
[2018-10-26 06:12] VITALS: BP 122/61
[2018-10-26 06:19] LABS: INR 1.01; PROTHROMBIN TIME 13.8 seconds (11.9-14.5)
[2018-10-26 06:20] LABS: PARTIAL THROMBOPLASTIN TIME 32.6 seconds (23.8-35.5)
[2018-10-26 07:25] VITALS: BP 124/66
--- NOTE | 2018-10-26 07:25 | NUR ---
PT IN BED SLEEPING ,NO DISTRESS NOTED.
[2018-10-26 08:04] VITALS: BP 124/66
[2018-10-26] MEDS: MEROPENEM 1GM 100 ML IV SCH ×2 (09:09→20:20)
[2018-10-26] MEDS: HYDROMORPHONE 2MG/ML 2 MG/ML ML IV PRN ×2 (09:20→20:20)
--- NOTE | 2018-10-26 09:20 | NUR ---
PT C/O ABD PAIN LEVEL 6 MEDICTED
[2018-10-26] MEDS: VANCOMYCIN 1GM/NS 250 ML 250 ML IV SCH ×2 (09:52→22:53)
[2018-10-26] MEDS ORDERED: HYDRALAZINE HCL 20 MG/ML VIAL IV PRN (10:15)
[2018-10-26] MEDS ORDERED: ACETAMINOPHEN 325 MG TAB PO PRN (10:15)
[2018-10-26] MEDS ORDERED: ONDANSETRON HCL INJ 2MG/ML 2ML 2 MG/ML VIAL IV PRN (10:15)
--- NOTE | 2018-10-26 12:45 | NUR ---
DR PURCELL HERE STATED HE WANTED PT TO BED TRANSFERRED TO [facility] NOT SURE WHAT HOSPITAL YET BUT A DR MORA WILL BE THE ATTENDING.AWAITING A CALL FROM DR PURCELL FOR WHICH HOSPITAL
[2018-10-26 16:01] VITALS: BP 116/68
[2018-10-26] MEDS: FAMOTIDINE 20 MG TAB PO SCH (16:30)
--- NOTE | 2018-10-26 16:59 | NUR ---
CASE MANAGEMENT INITIAL ASSESSMENT Dat Instructor to bedside to discuss plan of care with patient/family. CM/SW role and care transitions discussed. Anticipated discharge plan discussed along with duration of care. CM/SW discussed patients right to make decisions in care. CM/SW work hours given. Patient lives: Admit/Transfer: ER Hospital/ER visits since last admit:0 POA/Emergency contact: ELOISA ZARAGOZA [phone] Current/Previous Home Health: NONE PCP/Follow-up Care: DR KRISTA ROPER Current/Previous DME: NONE Medications (referring to index hospitalization or the first time you were in the hospital) a. Were changes made in your medications when you were in the hospital on [date of index hospitalization]? Yes No Not sure Explain: Note: If no or not sure, please skip to question d b. Did you understand the changes? Yes No Explain: c. Were you able to obtain your new medications right away? Yes No n/a SNF only Explain: d. Were you able to take your medications like the doctor wanted you to? TAKING MEDS PER PCP'S INSTRUCTIONS e. Did the hospital give you an accurate, easy to understand list of medications when you left? Yes No n/a SNF only Explain: Scale of 1-10 how comfortable does patient feel with disease management in outpatient setting? 10 Other Services: NONE Employment Status: RETIRED Areas of Concerns: SURGICAL COMPLICATIONS FROM TURP 3 WEEKS AGO AT [facility] Referral Needs: TO BE DETERMINED Education Needs: FOLLOW UP APPTS IMM/YOO given and signed (if applicable): IMM ON ADMIT Goal for discharge:DC HOME WITH SOON POSSIBLE CM/SW left business card at the bedside with contact information. Name and number was also written on the patients whiteboard. Patient verbalized understanding of discussion. CM will follow-up with ongoing discharge and transition of care needs.
[2018-10-26] MEDS: DOCUSATE SODIUM 100 MG CAP PO SCH (17:00)
[2018-10-26] MEDS: POLYETHYLENE GLYCOL 3350 17 GM PACK PO SCH (17:00)
--- NOTE | 2018-10-26 17:02 | NUR ---
CM SPOKE WITH DR SETH EARLIER TODAY HE IS WORKING ON GETTING PT TRANSFERED DOWNTOWN FOR HIGHER LEVEL OF CARE UNDER DR LEFTY MORA PH: [phone] HE WILL CALL US WITH THE FACILITY TO TRANSFER TO WHEN HE SPEAKS TO DR MORA TRANSFER WILL BE INITIATED AT THAT TIME PT AND AWARE OF UPCOMING TRANSFER NOTIFIED SENIOR C SOFTWARE ENGINEER MEKHI LUNDBERG AND NURSE BETTINA OF UPCOMING TRANSFER (STILL UNCERTAIN OF FACILITY AT 5 PM) MOT ON FRONT OF CHART ALONG WITH CHOICE LETTER CM TO FOLLOW IF PT STILL HERE IN AM
--- NOTE | 2018-10-26 18:17 | NUR ---
PT UP IN BED NO DISTRESS NOTED,DENIES PAIN,CONSENT SIGNED FOR PICC LINE
--- NOTE | 2018-10-26 19:00 | NUR ---
Bedside rounds completed with morning nurse. Pt alert to name. Lying in bed HOB 30 degrees. Denies pain at this time. Family at bedside. Call owens within reach. Will continue to monitor.
[2018-10-26] MEDS: LOSARTAN POTASSIUM 25 MG TAB PO SCH (19:33)
[2018-10-26 20:00] VITALS: BP 129/71
[2018-10-26] MEDS: SIMVASTATIN 40 MG TAB PO SCH (20:20)
[2018-10-26] MEDS: TAMSULOSIN HCL 0.4 MG CAP PO SCH (20:20)
[2018-10-26] MEDS: TRAZODONE HCL 50 MG TAB PO SCH (22:00)
--- NOTE | 2018-10-26 22:10 | NUR ---
Midline placement completed to right upper arm, pt tolerated well. Denies pain at the site. Min bleeding, no swelling noted. Will continue to monitor.
[2018-10-27] VITALS: BP 138/85
[2018-10-27] MEDS: SODIUM CHLORIDE 0.9% 1000ML 1,000 ML IV SCH (03:00)
[2018-10-27 04:00] VITALS: BP 145/70
--- NOTE | 2018-10-27 04:10 | NUR ---
Pt refused early 3am labs and 0400 vital signs. Last vss at 0000.
[2018-10-27 06:30] LABS: BASOPHILS % 0.6 % (0.0-1.0); EOSINOPHILS # (AUTO) 0.1 (0.0-0.4); EOSINOPHILS % 3.1 % (0.0-6.0); HEMATOCRIT 34.6 % (38.2-49.6); HEMOGLOBIN 11.2 g/dL (14.0-18.0); LYMPHOCYTES # (AUTO) 1.4 (1.0-3.2); LYMPHOCYTES % 38.2 % (18.0-39.1); MEAN CORPUSCULAR HEMOGLOBIN 29.5 pg (28-32); MEAN CORPUSCULAR HGB CONC 32.4 g/dL (31-35); MEAN CORPUSCULAR VOLUME 91.1 fL (81-99); MONOCYTES # (AUTO) 0.3 (0.2-0.8); MONOCYTES % 8.8 % (4.4-11.3); NEUTROPHILS # (AUTO) 1.7 (2.1-6.9); NEUTROPHILS % 48.5 % (38.7-80.0); PLATELET COUNT 189 x10e3/uL (140-360); RED CELL DISTRIBUTION WIDTH 13.4 % (11.7-14.4)
[2018-10-27 06:45] LABS: ANION GAP 8.8 mmol/L (8-16); BLOOD UREA NITROGEN 10 mg/dL (7-26); BUN/CREATININE RATIO 12 (6-25); CALCIUM 8.7 mg/dL (8.4-10.2); CARBON DIOXIDE 25 mmol/L (22-29); CHLORIDE 108 mmol/L (98-107); CREATININE, SERUM 0.86 mg/dL (0.72-1.25); EST GLOMERULAR FILTRATION RATE > 60 ML/MIN (60-); GLUCOSE 83 mg/dL (74-118); MAGNESIUM 1.8 MG/DL (1.3-2.1); POTASSIUM 3.8 mmol/L (3.5-5.1); SODIUM 138 mmol/L (136-145)
[2018-10-27] MEDS: HYDROMORPHONE 2MG/ML 2 MG/ML ML IV PRN ×3 (06:50→22:20)
--- NOTE | 2018-10-27 07:25 | NUR ---
PT IN BED RESTING NO S/S DISCOMFORT,
[2018-10-27] MEDS: FAMOTIDINE 20 MG TAB PO SCH ×2 (08:00→17:00)
[2018-10-27] MEDS: DOCUSATE SODIUM 100 MG CAP PO SCH ×2 (08:00→17:00)
[2018-10-27] MEDS: MEROPENEM 1GM 100 ML IV SCH ×2 (08:00→22:00)
[2018-10-27] MEDS: POLYETHYLENE GLYCOL 3350 17 GM PACK PO SCH ×2 (09:00→17:00)
[2018-10-27] MEDS ORDERED: NON-FORMULARY MEDICATION (Losartan Potassium 50 MG) PO SCH (09:00)
[2018-10-27] MEDS: VANCOMYCIN 1GM/NS 250 ML 250 ML IV SCH (10:00)
--- NOTE | 2018-10-27 11:06 | Consultation ---
DATE OF CONSULTATION: 10/27/2018 SUBJECTIVE: Mr. Garcia is a 72-year-old male, who I was consulted on to see because of severe pain in the suprapubic area and the lower abdomen and almost like the upper thighs. This patient is very well known to me with a history of chronic prostatitis. He has had multiple episodes of the chronic prostatitis. He finally underwent cystoscopy and TURP laser about 4 to 5 months ago. He has done relatively well, but still continued to have issues with partial obstruction. He finally was brought to surgery and underwent cystoscopy and TURP standard. Postoperatively, he was voiding very well, but still complained of the pain. While at [facility] in [place], multiple x-rays were obtained; CT scans, MRI, bone scan, x-ray of the pelvic bone and hips, but nothing showed definitively to prove any discomfort or any cause for the pain. He was admitted at this time here in [facility] and MRI of the pelvis showed very severe osteitis pubis versus osteomyelitis. At this time, he was voiding well with a good stream and good control. IMPRESSION: Osteomyelitis of the pubic bone versus osteitis pubis. The MRI showed a questionable very fine tract between the prostatic urethra and the space in the retropubic space, but that could not be definitely ascertained. I have discussed this case with Dr. Ton Sims, Professor of Urology and he does not think that there really is a need or an issue for any intervention at this time urologically. However, he recommended an Orthopedic consultation and also antibiotic with possible course of steroids. Ruben Montero MD MA/PAWAN /[id number]
[2018-10-27] MEDS: BISACODYL 5 MG TAB EC PO SCH (11:45)
[2018-10-27 11:55] VITALS: BP 123/71
--- NOTE | 2018-10-27 12:00 | NUR ---
PAGED DR DAI RE MEDICATION
--- NOTE | 2018-10-27 13:00 | NUR ---
DR BECKFORD HERE NO NEW ORDERS
[2018-10-27 16:13] VITALS: BP 139/81
[2018-10-27 18:03] VITALS: BP 139/81
--- NOTE | 2018-10-27 18:09 | NUR ---
PT ASSISTED BACK TO BED ,HAS SEVERE PAIN WHEN AMBULATING IN HIPS AND LOWER LEGS,PAIN LEVEL 4.
--- NOTE | 2018-10-27 19:00 | NUR ---
Nursing report received by morning nurse. Pt at imaging for MRI and CT.
[2018-10-27] MEDS ORDERED: GADOBENATE DIMEGLUMINE 1 ML IV ONE (19:24)
--- NOTE | 2018-10-27 19:26 | Progress Note ---
DATE: SUBJECTIVE: Mr. Garcia is doing about the same. He is lying in bed comfortably, but he still cannot walk because of the pain. The patient has no fever, no chills. Today, I received a phone call from his son-in-law, who is an CONTACT LENS BLOCKER doctor, who told me that Dr. Ruben Montero have reviewed his MRI and he showed it to a neurologist in the [facility] and he was told that there is really no need for surgical intervention. Also, his showed the MRI to an Orthopedic in the [facility], who told her there is no need for surgery, only antibiotic. The patient is currently lying in bed. The problem with him now, he still cannot walk because of the pain. He grew again ESBL E. coli, which is sensitive to meropenem, aminoglycoside and Bactrim. The patient has been on Bactrim, however, as an outpatient without any improvement. LABORATORY DATA: Reviewed. His white count 3.93, his hemoglobin is 13, and his hematocrit 40. Sodium 138, potassium 3.8, and creatinine 0.85. His BNP is 154. He had hip MRI, which is we are aware of. PHYSICAL EXAMINATION: GENERAL: He is currently alert and oriented. Does not seem to be in acute distress. VITAL SIGNS: Stable. Currently afebrile. His temperature 98.8, heart rate of 88, respirations 18, blood pressure 129/71. HEENT: He is not icteric. NECK: Supple. CHEST: Clear. HEART: S1 and S2. No S3, S4, or murmur. ABDOMEN: Soft. Bowel sounds present. No tenderness. EXTREMITIES: No edema. IMPRESSION: 1. Chronic cholecystitis, concerned about abscess with a fistula. 2. 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 PLAN: The plan is to continue with meropenem for 8 weeks. Since there is no need for transfer apparently to the [facility], I would recommend him to obtain a neurological evaluation to see why he is still weak and cannot walk. We would also recommend rehab evaluation. While he needs 8 weeks of IV antibiotic, but if he cannot walk, then he may need to go to an LTAC. A midline was placed. Discussed with the patient at length and answered all his question, his is at the bedside. We will follow with you. Thank you for asking me to see this patient. MD YOEL Crews /[id number]
--- NOTE | 2018-10-27 20:00 | NUR ---
Pt back from imaging. Alert to name. Assist with transfer back to bed. Family at bedside. Will continue to monitor.
--- NOTE | 2018-10-27 20:56 | Diagnostic Imaging Report ---
EXAM: CT of the abdomen and pelvis WITH contrast HISTORY: Osteomyelitis, rule out abscess COMPARISON: CT of the abdomen and pelvis September 30, 2018. MRI of the right hip October 25, 2018. TECHNIQUE: The abdomen and pelvis were scanned utilizing a multidetector helical scanner. Coronal and sagittal reformats are provided. PROTOCOL: Routine IV CONTRAST: 100 cc of Isovue-370. ORAL CONTRAST: Water RADIATION DOSE: Total DLP: 574.16 mGy*cm Estimated effective dose: (DLP x 0.015 x size factor) Dose modulation, iterative reconstruction, and/or weight based adjustment of the mA/kV was utilized to reduce the radiation dose to as low as reasonably achievable. COMPLICATIONS: None FINDINGS: LOWER THORAX: Mild bibasilar atelectasis likely superimposed upon mild scarring of the left lower lobe. HEPATOBILIARY: No mass. No biliary dilation. The gallbladder is mildly contracted, without a calcified stone. SPLEEN: No splenomegaly. PANCREAS: No focal masses or ductal dilatation. ADRENALS: No discrete adrenal nodule. KIDNEYS/URETERS: No hydronephrosis or solid mass lesion. Three stable nonobstructing calcifications within left kidney measuring up to 3 mm. No significant interval change of the partially exophytic simple 5 cm cyst at the lateral periphery of the right kidney. PELVIC ORGANS/BLADDER: No evidence of a drainable abscess. GI TRACT: No dilation or wall thickening identified. The appendix is normal. PERITONEUM / RETROPERITONEUM: No free air or fluid. LYMPH NODES: No pathologically enlarged lymph node. VESSELS: Diffuse scattered atherosclerotic vascular calcifications. Stable 3.5 cm infrarenal abdominal aortic aneurysm and 1.7 cm right common iliac artery aneurysm. BONES: Otherwise, no aggressive osseous lesion or acute fracture. SOFT TISSUES: Stable small fat-containing umbilical hernia without associated inflammatory changes. IMPRESSION: 1. The pubic symphysis septic arthritis with adjacent bilateral pubic parasymphyseal osteomyelitis is better characterized on the recent comparison MRI of the right hip. 2. No CT evidence of a drainable abscess. 3. Nonobstructing left renal stones, measuring up to 3 mm. 4. A stable 3.5 cm infrarenal abdominal aortic aneurysm and 1.7 cm right common iliac artery aneurysm. Signed by: Dr. Walt Francisco D.O., M.M.M. on 10/27/2018 8:53 PM
[2018-10-27] MEDS: TRAZODONE HCL 50 MG TAB PO SCH (21:00)
--- NOTE | 2018-10-27 21:03 | Diagnostic Imaging Report ---
History: Rule out infection Comparison studies: None Technique: Cervical: Sagittal T2, T1 and IR, axial T1. Postcontrast axial and sagittal T1 and, axial T2. Thoracic: Sagittal T2, T1 and IR. Postcontrast axial and sagittal T1 and, axial T2. Lumbar: Sagittal T2, T1 and IR. Postcontrast axial and sagittal T1 and, axial T2. Intravenous contrast: 15 cc of Gadavist. Findings: Alignment: Reversal cervical lordosis centered at C4-5. Normal thoracic kyphosis. Straightening of the lumbar lordosis. No scoliosis. Cervicomedullary junction: Patent foramen magnum. No Chiari one malformation. Soft tissues: No T2 hyperintense inflammatory changes. Partially visualized 4cm interpolar right renal cyst, Focal dilation of the infrarenal aorta measuring up to 3cm. Spinal cord: Normal from the foramen magnum to the tip of the conus at L1 Vertebrae: Normal in height and signal intensity. Non deforming hemangioma at T9 vertebral body. No fractures, infection or neoplasm. Degenerative changes: Cervical spine: C2-C3: No abnormalities. C3-C4: Disc degeneration with loss of T2 signal. Central disc osteophyte complex, uncinate process and right facet hypertrophy results in no canal stenosis and moderate right foraminal narrowing C4-C5: Disc degeneration with loss of T2 signal and decreased intervertebral space. Diffuse disc osteophyte complex, bilateral facet hypertrophy and facet hypertrophy results in mild canal stenosis and mild bilateral foraminal narrowing. C5-C6: Disc degeneration with loss of T2 signal and decreased intervertebral space. Diffuse disc osteophyte complex, bilateral facet hypertrophy and facet hypertrophy results in moderate canal stenosis, moderate right and severe left foraminal narrowing C6-C7: Disc degeneration with loss of T2 signal and obliterated intervertebral space. Diffuse disc osteophyte complex, bilateral facet hypertrophy and facet hypertrophy results in moderate canal stenosis, severe right and moderate left foraminal narrowing C7-T1: No abnormalities. Thoracic spine: 1. Patent canal and foramina. Lumbar spine: Disc degeneration with loss of T2 signal from T3-L1. L3-L4: Diffuse disc bulge with superimposed left central annular fissure results in no significant foraminal narrowing or canal stenosis. L4-L5: Diffuse disc bulge with superimposed left foraminal annular fissure results in no significant foraminal narrowing or canal stenosis L5-S1: No abnormalities. IMPRESSION: 1. No evidence of spinal infection 2. Degenerative changes of the spine as described above. 3. No acute spinal abnormality. Signed by: DR Evan Thomas M.D. on 10/27/2018 9:00 PM
[2018-10-27] MEDS: TAMSULOSIN HCL 0.4 MG CAP PO SCH (22:00)
[2018-10-27] MEDS: SIMVASTATIN 40 MG TAB PO SCH (22:00)
[2018-10-28] MEDS ORDERED: SODIUM CHLORIDE 0.9% 50ML 50 ML ONE (02:28)
[2018-10-28] MEDS ORDERED: IOPAMIDOL 370 MG/ML 200 ML INFUS..BTL INJ ONE (02:29)
--- NOTE | 2018-10-28 04:39 | Consultation ---
DATE OF CONSULTATION: 10/27/2018 CHIEF COMPLAINT: Lower abdominal pain. HISTORY OF PRESENT ILLNESS: The patient is a 72-year-old gentleman, who is complaining of some pain in his lower abdomen and groins. His history is significant for a transurethral resection of the prostate done originally back in June of 2018. He states that he was doing relatively well for about 2 months after the surgery. However, he started to develop severe pain and inability to bear weight. Under the care of his urologist, he was worked up further. There was a diagnosis made of infection around his prostate. He subsequently underwent a second TURP about 3 weeks ago. Since that time, his pain in his lower abdomen and groin has not improved. A CT scan was done 2 days ago. This showed a question of inflammation and possible osteoarthritis/septic arthritis of the symphysis pubis. Orthopedic consultation was requested. The patient is on the 2nd or 3rd day of IV antibiotics. He had a PICC line placed yesterday. PAST MEDICAL HISTORY: The patient was previously healthy. He denies any medical problems. His only surgery includes bilateral rotator cuff repairs some many years ago. MEDICATIONS: He did not take any daily medications. ALLERGIES: HE DENIES ALLERGIES. SOCIAL HISTORY: He is . He smokes a water pipe on occasion. He does not drink alcohol. He is originally from [place] and moved to [place] 57 years ago. 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 PHYSICAL EXAMINATION: GENERAL: He is awake, alert, and oriented. He is a good historian. He did not want to attempt to stand up. He did previously walked to the bathroom with standby assistance. Both his right and left hip have some discomfort with passive range of motion. He has pain with direct pressure over his symphysis pubis. Distal neurovascular exam is normal. LABORATORY STUDIES: His white blood cell count is around 5000. A CT scan of his lower abdomen and hip was reviewed. He has a lobulated cavity anterior to the prostate. He has a thin sinus that extends anteriorly up to the symphysis pubis. active edema in the symphysis pubis on both sides. There is no evidence of a retropubic abscess. IMPRESSION/PLAN: Infection involving the prostate. The patient appears to have secondary inflammation and possible osteomyelitis involving the pubic symphysis on both sides. He has a PICC line placed and he is receiving IV antibiotics. At this time, I do not see any evidence of a retropubic abscess or any indication for any type of surgical debridement of the symphysis pubis. This is an unusual finding and something which I have little to certified professional ergonomist. I have searched this in PubMed and found case reports. On occasion, surgical intervention is appropriate. The possibility of a CT-guided biopsy is appropriate. I discussed all of this with the patient and his . They are strongly motivated to get a second urologic opinion at [facility]. I have spoken to Dr. Carrington and conveyed this to him. At this point, the treatment for his inflammation in his symphysis pubis will be IV antibiotics. We will observe for now. Thank you for the consultation. Carlos Quijano MD DR/PAWAN /[id number]
[2018-10-28 06:38] LABS: BASOPHILS % 0.5 % (0.0-1.0); EOSINOPHILS # (AUTO) 0.2 (0.0-0.4); HEMOGLOBIN 11.9 g/dL (14.0-18.0); LYMPHOCYTES # (AUTO) 1.5 (1.0-3.2); LYMPHOCYTES % 40.2 % (18.0-39.1); MEAN CORPUSCULAR HEMOGLOBIN 29.7 pg (28-32); MEAN CORPUSCULAR HGB CONC 33.1 g/dL (31-35); MEAN CORPUSCULAR VOLUME 89.8 fL (81-99); MONOCYTES # (AUTO) 0.4 (0.2-0.8); MONOCYTES % 11.7 % (4.4-11.3); NEUTROPHILS # (AUTO) 1.6 (2.1-6.9); NEUTROPHILS % 42.8 % (38.7-80.0); PLATELET COUNT 204 x10e3/uL (140-360); RED BLOOD COUNT 4.01 x10e6/uL (4.3-5.7); RED CELL DISTRIBUTION WIDTH 13.2 % (11.7-14.4)
[2018-10-28 06:58] LABS: ANION GAP 12.1 mmol/L (8-16); BLOOD UREA NITROGEN 10 mg/dL (7-26); BUN/CREATININE RATIO 13 (6-25); CALCIUM 9.1 mg/dL (8.4-10.2); CARBON DIOXIDE 24 mmol/L (22-29); CHLORIDE 105 mmol/L (98-107); CREATININE, SERUM 0.79 mg/dL (0.72-1.25); EST GLOMERULAR FILTRATION RATE > 60 ML/MIN (60-); GLUCOSE 72 mg/dL (74-118); MAGNESIUM 2.1 MG/DL (1.3-2.1); POTASSIUM 4.1 mmol/L (3.5-5.1); SODIUM 137 mmol/L (136-145)
[2018-10-28 08:43] VITALS: BP 133/69
[2018-10-28 08:45] VITALS: BP 133/69
[2018-10-28] MEDS: MEROPENEM 1GM 100 ML IV SCH ×2 (08:56→17:59)
[2018-10-28] MEDS: FAMOTIDINE 20 MG TAB PO SCH ×2 (08:56→16:27)
[2018-10-28] MEDS: DOCUSATE SODIUM 100 MG CAP PO SCH (08:56)
[2018-10-28] MEDS: LOSARTAN POTASSIUM 25 MG TAB PO SCH (08:58)
[2018-10-28] MEDS: BISACODYL 5 MG TAB EC PO SCH (08:59)
[2018-10-28] MEDS: POLYETHYLENE GLYCOL 3350 17 GM PACK PO SCH (08:59)
[2018-10-28] MEDS ORDERED: LACTULOSE SYRUP 20 GM/30 ML UDC PO SCH (09:00)
[2018-10-28 11:17] VITALS: BP 125/72
--- NOTE | 2018-10-28 11:48 | NUR ---
CM to bedside to discuss [facility] patients rights. IMM discussed and signature obtained from patient. Patient verbalized understanding of discussion.
[2018-10-28] MEDS: HYDROMORPHONE 2MG/ML 2 MG/ML ML IV PRN ×3 (13:11→20:30)
[2018-10-28] MEDS ORDERED: LACTULOSE SYRUP 20 GM/30 ML UDC PO PRN (13:15)
[2018-10-28] MEDS ORDERED: BISACODYL 5 MG TAB EC PO PRN (13:15)
[2018-10-28] MEDS ORDERED: POLYETHYLENE GLYCOL 3350 17 GM PACK PO PRN (13:15)
[2018-10-28] MEDS ORDERED: DOCUSATE SODIUM 100 MG CAP PO PRN (13:15)
[2018-10-28] MEDS ORDERED: CITRATE OF MAGNESIA 300ML BOTTLE PO ONE (15:00)
[2018-10-28 15:36] VITALS: BP 133/82
--- NOTE | 2018-10-28 17:07 | NUR ---
SCD'S APPLIED BILATERALLY TO PATIENT'S LOWER EXTREMITIES ORDERED.
--- NOTE | 2018-10-28 19:00 | NUR ---
patient received awake, alert, lying quietly in bed. no c/o pain noted. right upper ml with dressing c,d,i. pm assessment complete. many family members noted at the bedside. patient instructed to call for assistance when needed.
--- NOTE | 2018-10-28 19:07 | NUR ---
PATIENT RESTING IN BED- IN STABLE CONDITION WITH NO S/S OF RESPIRATORY DISTRESS. SCD'S APPLIED BILATERALLY TO LOWER EXTREMITY. FAMILY MEMBERS PRESENT IN ROOM. CALL LIGHT IS WITHIN REACH, INSTRUCTED TO CALL FOR ASSISTANCE NEEDED. BEDSIDE REPORT GIVEN TO ONCOMING NURSE.
[2018-10-28 20:00] VITALS: BP 135/72
[2018-10-28] MEDS: TRAZODONE HCL 50 MG TAB PO SCH (20:30)
[2018-10-28] MEDS: TAMSULOSIN HCL 0.4 MG CAP PO SCH (20:30)
[2018-10-28] MEDS: SIMVASTATIN 40 MG TAB PO SCH (20:30)
--- NOTE | 2018-10-28 20:30 | NUR ---
patient medicated with dilaudid 1 mg ivp for c/o bilateral lower extremities. patient requesting not to be awakened through the night for vital signs. remains at the bedside.
--- NOTE | 2018-10-28 20:39 | Progress Note ---
DATE: SUBJECTIVE: Mr. Garcia continued to have pain in his right leg. He said he cannot walk on it. He is in bed. The patient to get a second opinion with Urology and we got an MRI of the spine and a CT of abdomen and pelvis. I spoke with Dr. Nicolas. I spoke with Internal Medicine. There is really no abscess that we can see in the prostate, but he does have osteomyelitis with pain in the pubic bone. REVIEW OF SYSTEMS: Besides the pain, he denies any. LABORATORY DATA: I have reviewed his laboratory data. His urine cultures showed E coli ESBL. White count is within normal limit. WBC of 3.9, hemoglobin 13. Sodium 138, potassium 3.8. He had a sedimentation rate of 78. I have reviewed him on the finding of the MRI and discussed with Neurology. PHYSICAL EXAMINATION: GENERAL: He is currently alert, oriented, does not seem to be in acute distress. VITAL SIGNS: Stable, currently afebrile. HEENT: He is not icteric. NECK: Supple. CHEST: Clear. HEART: S1 and S2. No S3, S4, or murmur. ABDOMEN: Soft. Bowel sounds present. No tenderness. IMPRESSION: Osteomyelitis. Continue with meropenem 1 g IV q.8. Severe leg pain with inability to walk debility. We will get evaluation with rehab and Neurology, which is in progress. PLAN: Eight weeks of IV antibiotic. We will recommend to transfer him to [place], where he can get the IV antibiotic and extensive rehab since he cannot even walk and take care of himself and he has complicated medical issues and progress as mentioned above. Discussed with the family. Time spent 1 hour discussing with all physicians and the patient. MD TERI Crews/PAWAN /[id number]
[2018-10-28 20:44] VITALS: BP 135/72
--- NOTE | 2018-10-29 01:51 | Consultation ---
DATE OF CONSULTATION: 10/28/2018 Neurology consult note. HISTORY OF PRESENT ILLNESS: Mr. Garcia is a 72-year-old right-hand dominant man with past medical history significant for hypertension, hyperlipidemia, prior hemorrhagic stroke without residual deficits, and benign prostatic hypertrophy, admitted to [facility] on October 25, 2018, with prostatitis and osteomyelitis. Mr. Garcia is status post transurethral resection of the prostate x2 in June 2018 and again in June 2019. Following the 1st transurethral resection of prostate, the patient has been in and out of various hospitals with fevers and genitourinary infections. Mr. Garcia was admitted to [facility] on October 25, 2018, with suspected prostatitis. A CT of the hip revealed findings compatible with osteomyelitis of the pubic symphysis. Mr. Garcia is currently receiving eight weeks of intravenous antibiotics for treatment of the prostatitis and osteomyelitis. The Neurology service is consulted for evaluation of lower extremity weakness and impaired gait. Beginning shortly after his 1st transurethral resection of prostate in June 2018, Mr. Garcia began to experience difficulty walking, which he attributes to pain in the perineal region. He describes the pain in this region as sharp and moderate to severe. Mr. Garcia reports the pain is constant. It is exacerbated by physical activity. Mr. Garcia does not report burning pain, tingling, pins and needles sensation, or other abnormal sensation in the feet or legs. He does not report numbness in the feet or legs. The patient denies weakness of any muscles in the feet and legs. Mr. Garcia is adamant, his impaired gait is secondary to pain. REVIEW OF SYSTEMS: Impairment of gait imbalance, pain in the perineal region as described in the history of present illness, muscle cramps in the arms and legs (chronic). PAST MEDICAL HISTORY: Hypertension, hyperlipidemia, prior hemorrhagic stroke in 2010 without residual deficits, and benign prostatic hypertrophy. PAST SURGICAL HISTORY: Transurethral resection of prostate x2, bilateral rotator cuff repair, left knee arthroscopy, and bilateral cataract removal. PAST HOSPITALIZATIONS: Surgeries/procedures, multiple hospitalizations for fevers and genitourinary infections over the past few months. FAMILY MEDICAL HISTORY: Mr. Garcia does not report any significant family medical history. SOCIAL HISTORY: The patient is . 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 The patient has never smoked cigarettes or cigars. He does smoke hookah. The patient does not report current or prior alcohol or recreational drug use. HOME MEDICATIONS: Levofloxacin 500 mg by mouth daily, losartan 50 mg by mouth daily, simvastatin 40 mg by mouth daily, tamsulosin 0.4 mg by mouth daily, and trazodone 100 mg by mouth at bedtime daily. HOSPITAL MEDICATIONS: Acetaminophen, Dulcolax, Colace, Pepcid, hydralazine, Dilaudid, lactulose, losartan, meropenem, Zofran, MiraLAX, simvastatin, tamsulosin, and trazodone. ALLERGIES: NO KNOWN DRUG ALLERGIES. NO KNOWN FOOD ALLERGIES. NO KNOWN ALLERGIES TO LATEX. NO KNOWN ALLERGIES TO IODINE OR OTHER CONTRAST MATERIALS. PHYSICAL EXAMINATION: VITAL SIGNS: Height 67 inches, weight 175 pounds, BMI 27.4 kg/m2, blood pressure 133/82 mmHg, pulse 70 beats per minute, respiratory rate 18 breaths per minute, and oxygen saturation 92% on room air. GENERAL: The patient is awake and alert, does not appear distressed. HEENT: Normocephalic, atraumatic. Pupils are surgical. Moist mucous membranes. NECK: Supple. No appreciable thyromegaly. No appreciable carotid bruits. CARDIOVASCULAR: S1, S2, regular rate and rhythm. No murmurs, rubs, or gallops. RESPIRATORY: Clear to auscultation bilaterally. No wheezes, rhonchi, or rales. EXTREMITIES: The skin is warm and dry. No clubbing, cyanosis, or edema. The posterior tibial and dorsalis pedis pulses are 2+ and symmetric. SKIN: No rashes or lesions. NEUROLOGIC: Memory/Attention: The patient is awake and alert, oriented to person, place, time, and situation. Cranial Nerves: Cranial nerve I - not tested. Cranial nerves II, III, IV, and - pupils are surgical. Extraocular movements intact. No nystagmus. Cranial nerve V - sensation to light touch and pinprick is intact in the bilateral V1 through V3 distributions. Strength in the temporalis and masseter muscles is within normal limits. Cranial nerve VII - the face is symmetric as are all facial movements. Strength is within normal limits. Cranial nerve VIII - hearing is intact to finger rub bilaterally. Cranial nerves IX, X - the soft palate elevates equally and symmetrically. Cranial nerve XI - normal strength to the bilateral sternocleidomastoid and trapezius muscles. Cranial nerve XII - the tongue protrudes in the midline and moves symmetrically from phji-ju-qxum. Strength: Bulk is normal. Strength is 5/5 in the bilateral deltoids, biceps, triceps, wrist flexors and extensors, finger flexors and extensors, intrinsic hand muscles, ankle dorsiflexion and plantar flexion, and intrinsic foot muscles. Strength in the hip flexors and knee flexors and extensors cannot be assessed secondary to pain. Tone is normal. DTRs: Deep tendon reflexes are 2+ and symmetric at the triceps, biceps, brachioradialis, patellas, and Achilles. Plantar responses are flexor bilaterally. Sensation: Sensation is intact to light touch, pinprick, temperature, and vibration in both arms and both legs. Cerebellar: Cnwwkp-tfci-hqjlts movements are intact without dysmetria or other impairment. Heel-marquez movements cannot be performed secondary to pain. Gait: Deferred. Speech: Spontaneous speech is normal without appreciable dysarthria or aphasia. Repetition is intact. Involuntary Movements: None. Pronator Drift: None. LABORATORY DATA: The most recent basic metabolic panel is significant only for a glucose of 72. A liver function panel collected on October 25, 2018, is significant for an albumin of 3.2 and globulin of 4.1. B-natriuretic peptide 154.0, 87.6. The most recent CBC with differential and platelets reveals a white blood cell count of 3.76 with a right shift with 42.8% neutrophils, 40.2% lymphocytes, 11.7% monocytes, 4.0% eosinophils, and 0.5% basophils. A coagulation profile is within normal limits. A urinalysis collected on October 25, 2018, revealed slightly cloudy urine with a specific gravity of 1.030, 1+ protein, 4+ blood, trace leukocyte esterase, 11 to 20 red blood cells, and moderate urine bacteria. A urine culture collected on October 25, 2018, grew Escherichia coli, ESBL. A vancomycin trough collected on October 27, 2018, was 13.2. DIAGNOSTIC STUDIES: Hip MRI on 10/25/2018: Findings worrisome for pubic symphysis septic arthritis with associated adjacent bilateral pubic parasymphyseal osteomyelitis, likely secondary to a tract communicating with the presumed prostate postsurgical cavity. CT of the abdomen and pelvis on 10/27/2018: 1. The pubic symphysis septic arthritis with adjacent bilateral pubic parasymphyseal osteomyelitis is better characterized on the recent comparison MRI of the right hip. 2. No CT evidence of a drainable abscess. 3. Nonobstructing left renal stone, measuring up to 3 mm. 4. A stable 3.5 cm infrarenal abdominal aortic aneurysm and 1.7 cm right common iliac artery aneurysm. MRI of the cervical, thoracic, and lumbar spine with and without contrast. There is no evidence of spinal infection. The lumbar spine reveals multilevel degenerative disk disease without significant spinal canal or neuroforaminal narrowing. The thoracic spine reveals a patent canal and foramina. The cervical spine, reveals multilevel degenerative disk disease with areas of mild spinal canal stenosis and moderate to severe bilateral neuroforaminal narrowing. ASSESSMENT AND PLAN: Mr. Garcia is a 72-year-old right-hand dominant man, status post transurethral resection of the prostate x2, who has been in and out of hospitals over the past few months with fevers and genitourinary infections. He was admitted to [facility] on October 25, 2018, with presumed prostatitis and osteomyelitis of the pubic symphysis. As detailed in the history of present illness, the Neurology service is consulted to evaluate for lower extremity weakness and impairment of gait. Mr. Garcia has undergone a thorough neurological examination with findings detailed above. His laboratory data and other diagnostic studies have been reviewed and are documented above. Unfortunately, the assessment of the patient's strength is limited secondary to pain. However, of the muscles examined in the feet and legs, strength is full. Deep tendon reflexes are intact and sensation is intact to light touch, pinprick, temperature, and vibration. Based on these findings, there is no evidence of nerve or muscle disease causing lower extremity weakness, numbness, or other impairment of sensation, or gait impairment. There are no findings on the MRI of the lumbar spine, which would produce weakness, numbness or other sensory impairment, or gait impairment. In my opinion, the patient's gait impairment is secondary to pain, probably from his underlying infections. I agree with continued treatment with intravenous antibiotics as well as physical therapy evaluation and treatment. There are no other recommendations from the Neurology service at this time. Please call again with any questions or concerns. Thank you for this consultation. TIME SPENT: 50 minutes. Shahrzad Engle MD CP/PAWAN /[id number] MTDD
[2018-10-29] MEDS: MEROPENEM 1GM 100 ML IV SCH ×3 (02:00→17:37)
[2018-10-29 02:30] VITALS: BP 147/71
[2018-10-29] MEDS: HYDROMORPHONE 2MG/ML 2 MG/ML ML IV PRN (02:39)
--- NOTE | 2018-10-29 02:39 | NUR ---
patient medicated with dilaudid 1 mg ivp for bilateral lower extremity pain 7/10 at this time. am labs collected and sent to lab.
[2018-10-29 03:11] LABS: BASOPHILS % 0.5 % (0.0-1.0); EOSINOPHILS # (AUTO) 0.2 (0.0-0.4); EOSINOPHILS % 4.6 % (0.0-6.0); HEMATOCRIT 35.9 % (38.2-49.6); HEMOGLOBIN 11.9 g/dL (14.0-18.0); LYMPHOCYTES # (AUTO) 1.5 (1.0-3.2); LYMPHOCYTES % 40.5 % (18.0-39.1); MEAN CORPUSCULAR HEMOGLOBIN 29.5 pg (28-32); MEAN CORPUSCULAR HGB CONC 33.1 g/dL (31-35); MEAN CORPUSCULAR VOLUME 89.1 fL (81-99); MONOCYTES # (AUTO) 0.5 (0.2-0.8); MONOCYTES % 12.3 % (4.4-11.3); NEUTROPHILS # (AUTO) 1.5 (2.1-6.9); NEUTROPHILS % 41.3 % (38.7-80.0); PLATELET COUNT 225 x10e3/uL (140-360); RED BLOOD COUNT 4.03 x10e6/uL (4.3-5.7); RED CELL DISTRIBUTION WIDTH 13.2 % (11.7-14.4)
[2018-10-29 03:23] LABS: ANION GAP 11.7 mmol/L (8-16); BLOOD UREA NITROGEN 12 mg/dL (7-26); BUN/CREATININE RATIO 14 (6-25); CALCIUM 9.1 mg/dL (8.4-10.2); CARBON DIOXIDE 25 mmol/L (22-29); CHLORIDE 102 mmol/L (98-107); CREATININE, SERUM 0.84 mg/dL (0.72-1.25); EST GLOMERULAR FILTRATION RATE > 60 ML/MIN (60-); GLUCOSE 104 mg/dL (74-118); MAGNESIUM 1.9 MG/DL (1.3-2.1); POTASSIUM 3.7 mmol/L (3.5-5.1); SODIUM 135 mmol/L (136-145)
[2018-10-29 04:00] VITALS: BP 152/93
--- NOTE | 2018-10-29 05:16 | Consultation ---
DATE OF CONSULTATION: Urology Consultation and Second Opinion REASON FOR CONSULTATION: Osteomyelitis of the symphysis pubis. HISTORY OF PRESENT ILLNESS: Jose Garcia is a 72-year-old man with a history of recurrent urolithiasis. The patient's prior urologist, Dr. David Gonzalez, followed the patient up for urolithiasis and performed several endoscopic stone extractions. The patient subsequently was treated for BPH by Dr. Ruben Montero. He underwent a vaporization of the prostate with GreenLight laser in June 2018. The patient voided well for approximately 2 months and then developed midline pelvic as well as suprapubic pains. The patient's pains became so severe that he felt he was unable to walk. Following this, the patient underwent a transurethral resection of the prostate via traditional resection. The patient subsequently presented to the emergency room and was admitted with severe pains approximately 3 weeks postop the second procedure. The patient reports that he has currently a good urinary force of stream. His gross hematuria that he had postoperatively seems to have cleared and he denies any urinary incontinence. PAST MEDICAL AND SURGICAL HISTORY: 1. Status post bilateral rotator cuff surgery. 2. History of cerebrovascular accident with complete recovery. CURRENT MEDICATIONS: Please refer to the MAR. ALLERGIES: NONE KNOWN. SOCIAL HISTORY: The patient smokes a hookah. 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 He has supportive at the bedside. Denies ethanol or drug use. REVIEW OF SYSTEMS: Consistent with above history of present illness and past medical history, otherwise negative for all the systems. FAMILY HISTORY: Noncontributory to the active urological problems. PHYSICAL EXAMINATION: GENERAL: Relatively healthy-appearing 72-year-old man, lying in bed, in no apparent distress. He is currently afebrile. VITAL SIGNS: His temperature maximum for this hospitalization was 99.8 two days earlier. ABDOMEN: Soft and nondistended. It is tender suprapubically. There is no costovertebral angle tenderness. Kidneys are not palpable, without hepatosplenomegaly. No obvious evidence of hernia. GENITOURINARY: Testes descended bilaterally. Testes and epididymis bilaterally palpably normal. The patient has a normal male phallus with normal meatus. He is circumcised. Digital rectal examination is deferred at the present time. For the remaining physical examination and systems, please refer to the admission history and physical on the chart. LABORATORY STUDIES: Urine culture grew an E. coli ESBL resistant to most antibiotics except ertapenem, gentamicin, imipenem, meropenem, nitrofurantoin, and Bactrim. White blood cell count is 3760, hemoglobin is 11.9, platelets are 204,000. The patient's creatinine is 0.79. Urinalysis significant for 11-20 rbc's and moderate bacteria. DIAGNOSTIC DATA: MRI of the right hip revealed suggestion of septic arthritis of the symphysis pubis with the suggestion of possible tract communicating with the prostate bed. CT scanning revealed 3 mm stones in the left kidney and a 5 mm cyst in the right kidney. Review of the films done by me revealed a wide-open prostatic cavity status post transurethral resection of the prostate giving an excellent post TURP result. I could not appreciate any drainable abscess cavity. Inflammation was noted around the symphysis pubis. Whether the tract is present remains to be proven. ASSESSMENT: 1. Leukopenia. 2. Anemia. 3. Urinary tract infection that is complicated. 4. Gross hematuria that has improved. 5. Benign prostatic hyperplasia status post transurethral resection of the prostate as well as GreenLight laser vaporization. 6. Left nephrolithiasis. 7. Right renal cyst. 8. Prostatitis. PLAN: 1. It seems that the patient had pains in the suprapubic region before his secondary prostatic transurethral procedure. It sounds like he may have had this osteomyelitis prior and has only progressed following his TURP. 2. Since there is no drainable abscess, initial treatment should be with culture specific and broad-spectrum antibiotics guided by the Infectious Diseases service following a course of antibiotics. Additional imaging should be performed to ensure treatment success. Surgical intervention is not warranted at this time; however, close urological monitoring is recommended. 3. I defer the patient's hematological abnormalities to the admitting physician. Thank you very much for involving us in care of your patient. We will be happy to follow along with you as needed. Jaya Nicolas MD OH/MODL /[id number]
[2018-10-29 07:43] VITALS: BP 137/77
[2018-10-29 08:00] VITALS: BP 137/77
[2018-10-29] MEDS: LOSARTAN POTASSIUM 25 MG TAB PO SCH (09:05)
[2018-10-29] MEDS: FAMOTIDINE 20 MG TAB PO SCH ×2 (09:05→17:37)
[2018-10-29] MEDS: KETOROLAC TROMETHAMINE 30 MG/ML VIAL IV PRN (11:33)
[2018-10-29 11:50] VITALS: BP 138/71
--- NOTE | 2018-10-29 17:12 | Progress Note ---
DATE: 10/29/2018 SUBJECTIVE: Mr. Garcia is a 72-year-old male who was admitted to the hospital a few days ago with severe lower abdominal pain. Workup showed that he has osteitis pubis and osteomyelitis of the pubic bone. He is currently on IV antibiotic. Today, he is feeling a little bit better. His pain is slightly better. He is currently on the IV hydration and IV antibiotic. MRI confirmed that of osteomyelitis of the pubic bone. PLAN: Plan is to continue on the same regimen. At this point, we need to make arrangements for consult with the home health care social worker for discharge preparation for home IV antibiotic and home health. Ruben Montero MD MA/PAWAN /[id number]
--- NOTE | 2018-10-29 17:33 | Consultation ---
DATE OF CONSULTATION: 10/29/2018 I would like to thank Dr. Millard for asking me to see Mr. Garcia in consultation. REASON FOR CONSULTATION: 1. Abnormal gait secondary to prostatitis and pubic symphysis arthritis versus abscess. 2. History of old stoke with good return. 3. Renal lithiasis. HISTORY: The patient is a 72-year-old male with history of renal stones, underwent GreenLight Laser in June 2018 and then he did actually pretty well with voiding, but then developed midline pelvic pain with suprapubic pain, again the pain was so bad, he could not really ambulate well. He was admitted here into the hospital, underwent workup, had some gross hematuria at one point, but the pain continued to get worse. He was seen by Dr. Nicolas for further evaluation. Also had ongoing workup, was seen by ID as well as Neurology. He had MRIs of the hip because of his significant pain, took oral antibiotics, came into the hospital and there was a question of possible abscess with presumed prostatitis and possibly osteomyelitis. Dr. Millard is following for ID management. I am being asked to evaluate for rehab needs as the patient had decline in function and lot of pain. He was seen by Dr. Engle in Neurology consultation, not felt to be neurologic, but mainly pain generator causing impaired gait and mobility. PAST MEDICAL HISTORY: Includes hemorrhagic stroke with complete return, hyperlipidemia, hypertension, and thyroid disease. PAST SURGICAL HISTORY: TURP of the prostate x2, bilateral rotator cuff repair, left knee arthroscopy, and bilateral cataract removal. FAMILY HISTORY: Negative for any significant medical issues in his family. SOCIAL HISTORY: He lives with his in his two-monet home . HABITS: He smokes hookah, but nondrinker. No alcohol usage. ALLERGIES: NO KNOWN DRUG ALLERGIES. REVIEW OF SYSTEMS: Essentially negative except for the above findings. IMAGING: Cervical, thoracic, and lumbar spine MRI shows no evidence of spinal infection or degenerative changes noted. No acute spinal abnormality. Pelvic CT showed pubic symphysis, septic arthritis with adjacent bilateral parasymphyseal osteomyelitis is better characterized on the recent comparison MRI of the right hip. No CT evidence of drainable abscess, nonobstructing left renal stones measuring up to 3 mm, stable 3.5 cm infrarenal abdominal aortic aneurysm and 1.7 cm right common iliac artery aneurysm noted. Hip MRI showed findings worrisome for pubic symphysis septic arthritis with associated bilateral pubic osteomyelitis likely secondary to tract communicating with presumed post surgical cavity. PHYSICAL EXAMINATION: GENERAL: The patient is awake and alert. He is walking very gingerly with a walker, having more pain on the right leg and hip compared to the left side, but mainly the pain is right where is pubic symphysis area is. EYES: Gaze is conjugate. ORAL: Tongue is midline. NECK: Supple. HEART: Regular. LUNGS: Clear. ABDOMEN: Nondistended and nontender. EXTREMITIES: Functional range of motion of the upper extremities and shoulders. Full range of motion of the elbows, wrists, and fingers. Lower extremities; hip flexion and extension actively is very limited on the right and left, but more so impaired on the right side because of his weakness. Sensory mosqueda, denies any numbness or tingling . Manual muscle testing 4/5 strength in the upper extremities bilaterally of the shoulders, both flexion and extension, and beet flumer is 4+ to 5/5 strength. Left lower extremity demonstrates 4+/5 strength in the left leg throughout with hip and knee and ankle dorsiflexion and plantar flexion of the right leg; however, he has giveaway weakness secondary to pain. He can barely flex his hip in the sitting position secondary to referred pain to pubic area. Knee extension is pretty much for 4- to 4/5 strength secondary to pain. Ankle dorsiflexion and plantar flexion 4/5 strength. Again, ambulated with walker and was observed by being very leandro. IMPRESSION: 1. Pain affecting gait and mobility, evidence of osteomyelitis and pubic symphysis. 2. Debility. 3. History of old hemorrhagic stroke, with complete return. PLAN: We will discuss with Dr. Millard as well as Dr. Carrington regarding his antibiotics and need of continuation of care. I think he could benefit from therapy; however, we will also continue for exterminator antibiotics IV versus other. Precautions, falls, continue therapy. Thank you once again for allowing me to participate in the care of this very pleasant, but unfortunate patient. Discussed with the patient and at length. Channing Jaramillo DO RPL/PAWAN /[id number]
--- NOTE | 2018-10-29 18:55 | NUR ---
PATIENT SITTING IN THE RECLINER- IN STABLE CONDITION WITH NO S/S OF RESPIRATORY DISTRESS. NO PAIN VOICED AT THIS TIME. PRESENT IN ROOM. PATIENT INSTRUCTED TO CALL FOR ASSISTANCE NEEDED. BEDSIDE REPORT GIVEN TO ONCOMING NURSE.
--- NOTE | 2018-10-29 19:15 | NUR ---
patient received awake, alert, sitting up in chair. no c/o pain noted. pm assessment complete. remains at the bedside. patient/ instructed to call for assistance when needed.
[2018-10-29 20:00] VITALS: BP 114/79
[2018-10-29] MEDS: TRAZODONE HCL 50 MG TAB PO SCH ×2 (21:00→21:11)
[2018-10-29] MEDS: TAMSULOSIN HCL 0.4 MG CAP PO SCH (21:11)
[2018-10-29] MEDS: SIMVASTATIN 40 MG TAB PO SCH (21:11)
[2018-10-29] MEDS: ZOLPIDEM TARTRATE 10 MG TAB PO PRN (21:11)
--- NOTE | 2018-10-29 23:10 | NUR ---
patient appears to be sleeping. remains at the bedside. request that we not wake patient up for vital signs through the night.
[2018-10-30] MEDS: MEROPENEM 1GM 100 ML IV SCH ×3 (02:00→17:33)
[2018-10-30 03:20] LABS: BASOPHILS % 0.5 % (0.0-1.0); EOSINOPHILS # (AUTO) 0.2 (0.0-0.4); EOSINOPHILS % 5.2 % (0.0-6.0); LYMPHOCYTES # (AUTO) 1.5 (1.0-3.2); LYMPHOCYTES % 38.1 % (18.0-39.1); MEAN CORPUSCULAR HEMOGLOBIN 28.8 pg (28-32); MEAN CORPUSCULAR HGB CONC 32.4 g/dL (31-35); MEAN CORPUSCULAR VOLUME 88.7 fL (81-99); MONOCYTES # (AUTO) 0.4 (0.2-0.8); NEUTROPHILS # (AUTO) 1.7 (2.1-6.9); NEUTROPHILS % 45.4 % (38.7-80.0); PLATELET COUNT 240 x10e3/uL (140-360); RED BLOOD COUNT 4.17 x10e6/uL (4.3-5.7); RED CELL DISTRIBUTION WIDTH 13.1 % (11.7-14.4)
[2018-10-30 03:35] LABS: ANION GAP 10.9 mmol/L (8-16); BLOOD UREA NITROGEN 18 mg/dL (7-26); BUN/CREATININE RATIO 21 (6-25); CALCIUM 9.1 mg/dL (8.4-10.2); CARBON DIOXIDE 24 mmol/L (22-29); CHLORIDE 106 mmol/L (98-107); CREATININE, SERUM 0.85 mg/dL (0.72-1.25); EST GLOMERULAR FILTRATION RATE > 60 ML/MIN (60-); GLUCOSE 90 mg/dL (74-118); MAGNESIUM 2.1 MG/DL (1.3-2.1); POTASSIUM 3.9 mmol/L (3.5-5.1); SODIUM 137 mmol/L (136-145)
[2018-10-30 08:00] VITALS: BP 136/86
[2018-10-30 08:04] VITALS: BP 136/86
[2018-10-30] MEDS: FAMOTIDINE 20 MG TAB PO SCH ×2 (08:30→17:33)
[2018-10-30] MEDS: LOSARTAN POTASSIUM 25 MG TAB PO SCH (08:30)
[2018-10-30] MEDS: KETOROLAC TROMETHAMINE 30 MG/ML VIAL IV PRN (08:31)
[2018-10-30] MEDS ORDERED: OXYCODONE HCL 10 MG TAB CR PO PRN (09:30)
[2018-10-30] MEDS ORDERED: FENTANYL 25 MCG/HR PATCH TOP SCH (09:30)
--- NOTE | 2018-10-30 10:05 | NUR ---
FENTANYL PATCH APPLIED TO PATIENT'S RIGHT DELTOID- PATIENT STATES PAIN IN GROIN/PUBIC SYMPHYSIS 03/18. PATIENT IN STABLE CONDITION WITH NO S/S OF RESPIRATORY DISTRESS. BED ALARM APPLIED.
[2018-10-30 11:29] VITALS: BP 141/73
--- NOTE | 2018-10-30 14:03 | NUR ---
PATIENT IS AMBULATING IN THE HALLWAY WITHOUT A WALKER/ASSISTIVE DEVICE. THE PATIENT'S IS AMBULATING BESIDE THE PATIENT. RN INFORMED/EDUCATED PATIENT ON SAFETY MEASURE REGARDING USING THE WALKER WHILE AMBULATING IN THE HALLWAY. PATIENT REFUSED TO USE THE WALKER AND STATED "NO" AND CONTINUED TO AMBULATE TOWARD [place] [id number].
[2018-10-30 15:57] VITALS: BP 138/66
[2018-10-30] MEDS: POLYETHYLENE GLYCOL 3350 17 GM PACK PO SCH (17:32)
[2018-10-30] MEDS: HYDROMORPHONE 2MG/ML 2 MG/ML ML IV PRN ×2 (17:32→23:00)
[2018-10-30] MEDS: DOCUSATE SODIUM 100 MG CAP PO SCH (17:33)
--- NOTE | 2018-10-30 18:48 | NUR ---
PATIENT IN STABLE CONDITION WITH NO S/S OF RESPIRATORY DISTRESS. PATIENT RECENTLY GIVEN PAIN MEDICATION- PAIN HAS IMPROVED. FAMILY MEMBERS PRESENT IN ROOM. PATIENT INSTRUCTED TO CALL FOR ASSISTANCE NEEDED. BEDSIDE REPORT GIVEN TO ONCOMING NURSE.
--- NOTE | 2018-10-30 18:50 | NUR ---
patient received awake, alert, lying quietly in bed. no c/o pain noted at this time. pm assessment complete. family noted at the bedside. patient instructed to call for assistance when needed.
[2018-10-30 19:30] VITALS: BP 150/86
[2018-10-30 19:58] VITALS: BP 150/86
[2018-10-30] MEDS: TAMSULOSIN HCL 0.4 MG CAP PO SCH (20:43)
[2018-10-30] MEDS: SIMVASTATIN 40 MG TAB PO SCH (20:43)
[2018-10-30] MEDS: TRAZODONE HCL 50 MG TAB PO SCH (20:43)
[2018-10-30] MEDS: ZOLPIDEM TARTRATE 10 MG TAB PO PRN (20:43)
--- NOTE | 2018-10-30 23:00 | NUR ---
patient medicated with dilaudid 1 mg ivp for c/o bilateral lower extremity pain 02/15 at this time.
--- NOTE | 2018-10-31 | NUR ---
patient/ refuses vital signs/blood draws through the night.
[2018-10-31] MEDS: MEROPENEM 1GM 100 ML IV SCH ×2 (02:00→09:41)
--- NOTE | 2018-10-31 03:00 | NUR ---
patient awake, lying quietly in bed. patient states, " I just can't sleep. " am labs drawn at this time per orders.
[2018-10-31 03:32] LABS: BASOPHILS % 0.5 % (0.0-1.0); EOSINOPHILS # (AUTO) 0.2 (0.0-0.4); EOSINOPHILS % 5.9 % (0.0-6.0); HEMOGLOBIN 12.3 g/dL (14.0-18.0); LYMPHOCYTES # (AUTO) 1.7 (1.0-3.2); LYMPHOCYTES % 41.7 % (18.0-39.1); MEAN CORPUSCULAR HEMOGLOBIN 29.3 pg (28-32); MEAN CORPUSCULAR HGB CONC 33.2 g/dL (31-35); MEAN CORPUSCULAR VOLUME 88.1 fL (81-99); MONOCYTES # (AUTO) 0.4 (0.2-0.8); MONOCYTES % 10.2 % (4.4-11.3); NEUTROPHILS # (AUTO) 1.7 (2.1-6.9); NEUTROPHILS % 40.7 % (38.7-80.0); PLATELET COUNT 271 x10e3/uL (140-360)
[2018-10-31 03:44] LABS: ANION GAP 10.7 mmol/L (8-16); BLOOD UREA NITROGEN 18 mg/dL (7-26); BUN/CREATININE RATIO 22 (6-25); CALCIUM 9.4 mg/dL (8.4-10.2); CARBON DIOXIDE 24 mmol/L (22-29); CHLORIDE 105 mmol/L (98-107); CREATININE, SERUM 0.81 mg/dL (0.72-1.25); EST GLOMERULAR FILTRATION RATE > 60 ML/MIN (60-); GLUCOSE 91 mg/dL (74-118); POTASSIUM 3.7 mmol/L (3.5-5.1); SODIUM 136 mmol/L (136-145)
[2018-10-31 07:30] VITALS: BP 128/69
--- NOTE | 2018-10-31 07:30 | NUR ---
PT IN BED AWAKE,STATES PAIN LEVEL 3,NO DISTRESS NOTEFD
[2018-10-31 07:34] VITALS: BP 128/69
--- NOTE | 2018-10-31 08:00 | NUR ---
PT UP AMBULATING IN [place] WITHOUT WALKER DOING WELL.
[2018-10-31] MEDS: DOCUSATE SODIUM 100 MG CAP PO SCH (08:15)
[2018-10-31] MEDS: LOSARTAN POTASSIUM 25 MG TAB PO SCH (08:15)
[2018-10-31] MEDS: POLYETHYLENE GLYCOL 3350 17 GM PACK PO SCH (08:15)
[2018-10-31] MEDS: FAMOTIDINE 20 MG TAB PO SCH (08:15)
--- NOTE | 2018-10-31 09:47 | NUR ---
EDUCATED ABOUT IMM, SIGNED, FILED IN CHART, WITH COPY LEFT WITH FAMILY AT BEDSIDE.
--- NOTE | 2018-10-31 10:00 | NUR ---
PT C/O PAIN LEVEL 6 TO GROIN,STATES HE NEEDS TO SLEEP WAS NOT ABLE TO SLEEP LAST NIGHT.
[2018-10-31] MEDS: HYDROMORPHONE 2MG/ML 2 MG/ML ML IV PRN (10:04)
[2018-10-31] MEDS ORDERED: ONDANSETRON HCL 4 MG ORAL DISINTEGRATING TAB PO PRN (12:45)
[2018-10-31 12:46] VITALS: BP 129/69
--- NOTE | 2018-10-31 12:49 | NUR ---
ORDERS FOR [facility] TODAY CHOICE LETTER SIGNED MOT INITIATED, SIGNED AND IN PACKET AT DESK RIMA NOTIFIED OF CONSULT WITH TRANSFER ORDERS TODAY
--- NOTE | 2018-10-31 13:22 | NUR ---
Discontinuing skilled physical therapy services since patient is independent/Mod I in functional mobility with out AD. Thank you
--- NOTE | 2018-10-31 13:28 | NUR ---
Discontinuing skilled physical therapy services since patient is independent/Mod I in functional mobility with out AD. Thank you Addendum: 10/31/18 at 1329 by Eris suarez PT Amended: Links added.
--- NOTE | 2018-10-31 15:49 | NUR ---
REPORT CALLED TO [facility] SPOKE WITH LORI.STAVE SAW OPERATOR NOTIFIED
[2018-10-31 15:55] VITALS: BP 136/82
--- NOTE | 2018-10-31 19:11 | NUR ---
PT TRANSFERRED TO [facility] ROOM [address] VIA [facility] STABLE CONDITION,MIDLINE IV IN PLACE
[2018-10-31] MEDS ORDERED: MELATONIN 5 MG TABLET PO SCH (21:00)
[2018-10-31] MEDS ORDERED: TEMAZEPAM 15 MG CAP PO PRN (21:00)
[2018-11-01] MEDS ORDERED: LIDOCAINE 5% PATCH TP SCH (09:00)
--- NOTE | 2018-11-01 13:48 | Discharge Summary ---
ADMISSION DIAGNOSES: Pubic symphysis septic arthritis with osteomyelitis, urinary tract infection, hypertension, hyperlipidemia, and benign prostatic hypertrophy. DISCHARGE DIAGNOSES: Pubic symphysis septic arthritis with osteomyelitis, urinary tract infection, hypertension, hyperlipidemia, benign prostatic hypertrophy, and extended-spectrum beta-lactamase of urine. HISTORY: BPH, hypertension, and hyperlipidemia. SURGICAL HISTORY: TURP x2. FAMILY HISTORY: Noncontributory. SOCIAL HISTORY: Noncontributory. HOSPITAL COURSE: A 72-year-old male complains of constant sharp, stabbing pain of the right groin for several months. Over the last 2-3 days, the pain has now moved to the left groin. Pain is worse with walking and improves with rest and pain pills. He had a TURP about 3 weeks ago. On admission, the patient was started on Merrem and vancomycin per ID. Urology was consulted. The urologist, who did the TURP was initially the one consulted. Infectious Disease was consulted. Urine culture came back positive for ESBL, so vancomycin was discontinued and only Merrem was given to the patient. Per the patient's Urology recommendation, Ortho was consulted. Ortho said this is not an ortho problem, this is urology problem, so he recommended they get a second urology opinion. At that point, Dr. Nicolas was consulted. Dr. Nicolas says that the patient will need long-term antibiotics and physical therapy. He also ordered MRI of the right hip that showed findings worrisome for pubic symphysis septic arthritis with associated adjacent bilateral pubic parasymphyseal osteomyelitis likely secondary to a tract communicating with the presumed prostate postsurgical cavity. CT of the abdomen showed pubic symphysis septic arthritis with adjacent bilateral pubic parasymphyseal osteomyelitis, no CT evidence of an abscess. MRI of the spine was ordered because the patient was having pain with walking and Neurology was consulted. After a full neurological exam, the patient was cleared by Neurology. MRI of the C, T, and L-spine were negative. The patient was discharged to [place] for 8 weeks of IV antibiotics per Infectious Disease, urological recommendation. Pain Management was consulted due to the amount of pain the patient was having. After being started on a pain patch, the patient is feeling much better and is able to ambulate. The patient and understand discharge instructions and agrees to plan. Vital signs stable, the patient afebrile. The patient was discharged to [facility] for antibiotics and physical therapy. Dictated by Juana Constantino, [employer] BU[employer] MD MEGAN Pollack/PAWAN /[id number]
== END 2018-10-31 17:16 | DRG 540 ==
LOC: ER 12:08 → ERHOLD 17:48 → MED/SURG3 19:26
PROVIDERS: ADMIT Internal Medicine; ATTEND Internal Medicine
PROC: 02HV33Z Insertion of Infusion Device into Superior Vena Cava, Percutaneous Approach (ICD-10-PCS; principal; 2018-10-26)
DX: M86.8X8 Other osteomyelitis, other site (principal); N39.0 Urinary tract infection, site not specified; E87.1 Hypo-osmolality and hyponatremia; B96.20 Unspecified Escherichia coli [E. coli] as the cause of diseases classified elsewhere; Z16.12 Extended spectrum beta lactamase (ESBL) resistance; Z86.73 Personal history of transient ischemic attack (TIA), and cerebral infarction without residual deficits; N20.0 Calculus of kidney; R26.89 Other abnormalities of gait and mobility; D72.819 Decreased white blood cell count, unspecified; N28.1 Cyst of kidney, acquired; R31.0 Gross hematuria; E78.5 Hyperlipidemia, unspecified; Z90.79 Acquired absence of other genital organ(s); K81.1 Chronic cholecystitis; N41.1 Chronic prostatitis; K59.00 Constipation, unspecified
CPT/HCPCS: 36415; 72156; 72157; 72158; 74177; 80048; 80053; 80202; 81001; 83735; 83880; 85025; 85610; 85651; 85730; 86140; 87086; 87186; 97139; 99284; J1885; J2405; J3370; J7030; Q9967

== ENCOUNTER → 2018-12-06 | Outpatient (RCR) | payer MEDICARE, OTHER ==
[~2018-12-06] MED LIST changes: +ATORVASTATIN CA20 MG PO; +CARBINOXAMINE MA4 MG PO; -MEROPENEM 1GM 100 ML IV SCH; +OXYCODONE HCL20 M1 PO; +PREDNISONE10 MG PO
== END ==
LOC: PT 11-29 10:45
PROVIDERS: ATTEND Internal Medicine Infectious Disease
DX: M46.28 Osteomyelitis of vertebra, sacral and sacrococcygeal region (principal); M62.81 Muscle weakness (generalized); R26.2 Difficulty in walking, not elsewhere classified; M53.3 Sacrococcygeal disorders, not elsewhere classified

== ENCOUNTER 2018-12-08 07:40 | Inpatient (IN) | payer MEDICARE, OTHER ==
[~2018-12-08] VITALS: Ht 170.2 cm; Wt 82.8 kg
[~2018-12-08 07:40] MED LIST changes: -ATORVASTATIN CA20 MG PO; -CARBINOXAMINE MA4 MG PO; -OXYCODONE HCL20 M1 PO; -PREDNISONE10 MG PO
--- OUTSIDE RECORDS SUMMARY | 2018-12-08 10:57 | XMS REPORT | Clinical Summary ---
Author Author [facility] Organization [facility] Address Unknown Phone Unavailable Care Team Providers Care [employer] Bi Consultant Name Role Phone Carlos Peña DO PCP [...] 50 mg by 0 tablet mouth nightly. 07/12/2018 Discontinued losartan (COZAAR) 50 MG Take [...] simvastatin (ZOCOR) 40 MG Daily 0 tablet 11/06/2018 meloxicam (MOBIC) 7.5 mg Take 2 60 tablet 0 tablet tablets (15 9 mg total) by mouth daily for 30 days. 10/17/2018 predniSONE (DELTASONE) 10 Take 1 tablet [...] Care Team Description Date Type Specialty Ruben Seth MD 10/27/2018 Telephone Urology Darwin Fernando MD 10/13/2018 Documentation Oncology Ruben [...] tract infection with hematuria, site unspecified 07/07/2018 [facility] General Internal Medicine - Encounter 07/12/2018 Ruben Seth MD Cysto Retrograde-Bilateral 02/15/2018 Surgery General Surgery Mainor Mims MD 02/15/2018 Anesthesia General Surgery Event Ruben Seth MD 02/15/2018 Hospital General Surgery Encounter Ruben Seth MD Preoperative testing (Primary Dx) 02/10/2018 Pre-Admit Pre-Admission Testing Testing Appointment Ruben Seth MD Benign localized hyperplasia of prostate with urinary retention 01/11/2018 Hospital Radiology Encounter Ruben Seth MD Benign localized hyperplasia of prostate with urinary retention (Primary Dx) 12/27/2017 Transcribe Access Orders after 2017 Immunizations Name Dates Previously Given Next Due [...] Taken Vital Sign Reading 10/07/2018 4:04 PM DIE SINKER Blood Pressure 130/74 10/07/2018 4:04 PM DIE SINKER Pulse 62 10/07/2018 4:04 PM DIE SINKER Temperature 36.1 C (97 F) 10/07/2018 4:04 PM DIE SINKER Respiratory Rate 19 10/07/2018 4:04 PM DIE SINKER Oxygen Saturation 95% - Inhaled Oxygen - Concentration 10/03/2018 12:17 PM DIE SINKER Weight 76.2 kg (168 lb) 10/03/2018 12:17 PM DIE SINKER Height 170.2 cm (5' 7") 10/03/2018 12:17 PM DIE SINKER Body Mass Index 26.31 Plan of Treatment Health Maintenance Due Date Last Done Comments COLON CANCER SCREENING 12/08/1995 SHINGLES VACCINES (#1) 12/08/1995 PNEUMOCOCCAL 2010 POLYSACCHARIDE VACCINE AGE 65 AND OVER INFLUENZA VACCINE 03/09/2019 07/12/2018 65+ PNEUMOCOCCAL VACCINE 07/12/2019 07/12/2018 (2 of 2 - PPSV23) Procedures Comments Procedure Name Priority Date/Time Associated Diagnosis NM BONE SCAN WHOLE BODY Routine 10/07/2018 3:51 PM DIE SINKER XR HIP 2-3 VIEWS RIGHT Routine 10/07/2018 1:32 PM DIE SINKER US DUPLEX VENOUS LOWER Routine 10/07/2018 EXTREMITY BILATERAL 10:37 AM DIE SINKER MRI PELVIS W WO CONTRAST Routine 10/06/2018 5:[address] ABDOMEN PELVIS W Routine 10/06/2018 CONTRAST 5:35 PM DIE SINKER ESTIMATED GFR Routine 10/06/2018 5:53 AM DIE SINKER BASIC METABOLIC PANEL Routine 10/06/2018 5:53 AM DIE SINKER HC COMPLETE BLD COUNT Routine 10/06/2018 W/AUTO DIFF 5:53 AM DIE SINKER ESTIMATED GFR Routine 10/05/2018 5:18 AM DIE SINKER BASIC METABOLIC PANEL Routine 10/05/2018 5:18 AM DIE SINKER HC COMPLETE BLD COUNT Routine 10/05/2018 W/AUTO DIFF 5:18 AM DIE SINKER SURGICAL PATHOLOGY Routine 10/04/2018 REQUEST 1:48 PM DIE SINKER HI AN ELECTIVE Routine 10/04/2018 SUPRAGLOTTIC AIRWAY 11:07 AM DIE SINKER Procedure Note - Bhavik Burt CRNA - 10/04/2018 11:07 AM DIE SINKER Airway Date/Time: 10/04/2018 11:02 AM Performed by: [...] 1 ESTIMATED GFR Routine 10/04/2018 6:13 AM DIE SINKER COMPREHENSIVE METABOLIC Routine 10/04/2018 PANEL 6:13 AM DIE SINKER PROTHROMBIN TIME WITH INR Routine 10/04/2018 6:13 AM DIE SINKER HC COMPLETE BLD COUNT Routine 10/04/2018 W/AUTO DIFF 6:13 AM DIE SINKER URINE CULTURE STAT 10/03/2018 6:01 PM DIE SINKER GRAM STAIN STAT 10/03/2018 6:01 PM DIE SINKER URINALYSIS SCREEN AND STAT 10/03/2018 MICROSCOPY, WITH REFLEX 5:27 PM DIE SINKER TO CULTURE XR CHEST 1 VW PORTABLE STAT 10/03/2018 3:42 PM DIE SINKER TYPE AND SCREEN Routine 10/03/2018 3:30 PM DIE SINKER PARTIAL THROMBOPLASTIN STAT 10/03/2018 TIME (PTT) 3:30 PM DIE SINKER PROTHROMBIN TIME WITH INR STAT 10/03/2018 3:30 PM DIE SINKER HC COMPLETE BLD COUNT STAT 10/03/2018 W/AUTO DIFF 3:30 PM DIE SINKER ECG ED PRELIMINARY Routine 10/03/2018 INTERPRETATION 3:08 PM DIE SINKER MRI LUMBAR SPINE WO STAT 10/03/2018 CONTRAST 3:08 PM DIE SINKER ECG 12-LEAD STAT 10/03/2018 1:54 PM DIE SINKER POC GLUCOSE Routine 07/11/2018 11:40 AM DIE SINKER ESTIMATED GFR Routine 07/11/2018 8:40 AM DIE SINKER COMPREHENSIVE METABOLIC Routine 07/11/2018 PANEL 8:40 AM DIE SINKER HC COMPLETE BLD COUNT Routine 07/11/2018 W/AUTO DIFF 8:40 AM DIE SINKER ECHOCARDIOGRAM 2D Routine 07/09/2018 COMPLETE W MMODE SPECTRAL 8:57 PM DIE SINKER COLOR DOPPLER ([id number]) ARTERIAL BLOOD GAS STAT 07/09/2018 7:29 PM DIE SINKER ECG 12-LEAD STAT 07/09/2018 7:09 PM DIE SINKER BLOOD CULTURE, AEROBIC & Routine 07/09/2018 ANAEROBIC 7:03 PM DIE SINKER C-REACTIVE PROTEIN STAT 07/09/2018 6:59 PM DIE SINKER ESTIMATED GFR STAT 07/09/2018 6:59 PM DIE SINKER LIPASE LEVEL STAT 07/09/2018 6:59 PM DIE SINKER PHOSPHORUS LEVEL STAT 07/09/2018 6:59 PM DIE SINKER PROCALCITONIN STAT 07/09/2018 6:59 PM DIE SINKER PROTHROMBIN TIME WITH INR STAT 07/09/2018 6:59 PM DIE SINKER PARTIAL THROMBOPLASTIN STAT 07/09/2018 TIME (PTT) 6:59 PM DIE SINKER MAGNESIUM LEVEL STAT 07/09/2018 6:59 PM DIE SINKER CREATINE KINASE, TOTAL STAT 07/09/2018 (CPK) 6:59 PM DIE SINKER TROPONIN STAT 07/09/2018 6:59 PM DIE SINKER THYROID STIMULATING STAT 07/09/2018 HORMONE 6:59 PM DIE SINKER T4, FREE STAT 07/09/2018 6:59 PM DIE SINKER LACTIC ACID LEVEL STAT 07/09/2018 6:59 PM DIE SINKER IONIZED CALCIUM STAT 07/09/2018 6:59 PM DIE SINKER COMPREHENSIVE METABOLIC STAT 07/09/2018 PANEL 6:59 PM DIE SINKER HC COMPLETE BLD COUNT STAT 07/09/2018 W/AUTO DIFF 6:59 PM DIE SINKER B NATRIURETIC PEPTIDE STAT 07/09/2018 6:59 PM DIE SINKER BLOOD CULTURE, AEROBIC & Routine 07/09/2018 ANAEROBIC 6:59 PM DIE SINKER XR CHEST 1 VW PORTABLE STAT 07/09/2018 6:52 PM DIE SINKER POC GLUCOSE Routine 07/09/2018 6:06 PM DIE SINKER GRAM STAIN Routine 07/08/2018 5:10 PM DIE SINKER RESPIRATORY CULTURE Routine 07/08/2018 5:[address] ABDOMEN PELVIS W WO STAT 07/08/2018 CONTRAST 10:28 AM DIE SINKER ESTIMATED GFR Routine 07/08/2018 9:31 AM DIE SINKER BASIC METABOLIC PANEL Routine 07/08/2018 9:31 AM DIE SINKER HC COMPLETE BLD COUNT Routine 07/08/2018 W/AUTO DIFF 9:31 AM DIE SINKER VENOUS BLOOD GAS Routine 07/08/2018 6:14 AM DIE SINKER ECG 12-LEAD STAT 07/08/2018 5:55 AM DIE SINKER TROPONIN Timed 07/08/2018 3:44 AM DIE SINKER LACTIC ACID LEVEL, SEPSIS Timed 07/08/2018 - NOW AND REPEAT 2X EVERY 3:44 AM DIE SINKER [address] ANGIOGRAM PE CHEST STAT 07/08/2018 12:24 AM DIE SINKER TROPONIN Timed 07/08/2018 12:19 AM DIE SINKER LACTIC ACID LEVEL, SEPSIS Timed 07/08/2018 - NOW AND REPEAT 2X EVERY 12:19 AM DIE SINKER 3 HOURS ECG 12-LEAD STAT 07/08/2018 12:02 AM DIE SINKER CONSULT TO SEPSIS Routine 07/07/2018 Sepsis, due to RESPONSE TEAM 9:38 PM DIE SINKER unspecified organism (HCC) BLOOD CULTURE, AEROBIC & Routine 07/07/2018 ANAEROBIC 8:51 PM DIE SINKER ECG ED PRELIMINARY Routine 07/07/2018 INTERPRETATION 8:49 PM DIE SINKER HI CRITICAL CARE, E/M Routine 07/07/2018 30-74 MINUTES 8:49 PM DIE SINKER URINALYSIS SCREEN AND STAT 07/07/2018 MICROSCOPY, WITH REFLEX 8:43 PM DIE SINKER TO CULTURE GRAM STAIN STAT 07/07/2018 8:43 PM DIE SINKER URINE CULTURE STAT 07/07/2018 8:43 PM DIE SINKER ESTIMATED GFR STAT 07/07/2018 8:38 PM DIE SINKER B NATRIURETIC PEPTIDE STAT 07/07/2018 8:38 PM DIE SINKER TROPONIN STAT 07/07/2018 8:38 PM DIE SINKER LIPASE LEVEL STAT 07/07/2018 8:38 PM DIE SINKER LACTIC ACID LEVEL, SEPSIS STAT 07/07/2018 - NOW AND REPEAT 2X EVERY 8:38 PM DIE SINKER 3 HOURS HEPATIC FUNCTION PANEL STAT 07/07/2018 8:38 PM DIE SINKER BASIC METABOLIC PANEL STAT 07/07/2018 8:38 PM DIE SINKER HC COMPLETE BLD COUNT STAT 07/07/2018 W/AUTO DIFF 8:38 PM DIE SINKER ECG 12-LEAD STAT 07/07/2018 8:37 PM DIE SINKER BLOOD CULTURE, AEROBIC & Routine 07/07/2018 ANAEROBIC 8:35 PM DIE SINKER XR CHEST 1 VW PORTABLE STAT 07/07/2018 8:32 PM DIE SINKER FL PYELOGRAM RETROGRADE Routine 02/15/2018 2:31 PM CDT ANESTHESIA INTUBATION Routine 02/15/2018 1:02 PM CDT Procedure Note - Angel Alvarez CRNA - 02/15/2018 1:02 PM CDT Airway Performed by: ANGEL ALVAREZ Authorized by: MAINOR MIMS AN ELECTIVE Routine 02/15/2018 SUPRAGLOTTIC AIRWAY 12:57 PM CDT Procedure Note - Angel Alvarez CRNA - 02/15/2018 12:57 PM CDT Airway [...] hyperplasia of prostate with urinary retention after 2017 Results * NM Bone Scan Whole Body (10/07/2018 3:51 PM DIE SINKER) Narrative Performed At Procedure:NM BONE SCAN WHOLE [...] seen IMPRESSION: Negative whole-body bone scan exam. [id number] Procedure Note Interface, Radiology Results Incoming - 10/07/2018 4:52 PM DIE SINKER Procedure:NM BONE SCAN WHOLE BODY REFERRING PHYSICIAN:RUBEN [...] seen IMPRESSION: Negative whole-body bone scan exam. [id number] Performing Organization Address City/State/Zipcode Phone Number [facility] [address] [place] [address] * XR Hip 2-3 View Right (10/07/2018 1:32 PM DIE SINKER) Narrative Performed At EXAMINATION:XR HIP 2-3 VIEWS RIGHT [facility] CLINICAL HISTORY:hip pain COMPARISON:None. TECHNIQUE: 3 views [...] Negative for fracture or focal bony lesion. [facility]-[id number] Procedure Note Interface, Radiology Results Incoming - 10/07/2018 3:51 PM DIE SINKER EXAMINATION: XR HIP 2-3 VIEWS RIGHT CLINICAL [...] Negative for fracture or focal bony lesion. [id number] Performing Organization Address City/[facility]/Zipcond Phone Number [facility] [address] [place] [address] * Us duplex venous lower extremity (10/07/2018 10:37 AM DIE SINKER) Narrative Performed At EXAMINATION:US DUPLEX VENOUS LOWER EXTREMITY BILATERAL [facility] CLINICAL HISTORY:Leg swelling or painDVT suspected COMPARISON:None. [...] is no evidence of deep venous thrombosis. [facility]-[id number] Procedure Note Interface, Radiology Results Incoming - 10/07/2018 10:45 AM DIE SINKER EXAMINATION: US DUPLEX VENOUS LOWER EXTREMITY BILATERAL [...] is no evidence of deep venous thrombosis. [facility]-[id number] Performing Organization Address [facility] Phone Number [facility] [address] [place] [address] * MRI Pelvis W Wo Contrast (10/06/2018 5:50 PM DIE SINKER) Narrative Performed At [facility] EXAMINATION:MRI PELVIS W [...] evidence of abscess formation or inflammatory changes. [id number] Procedure Note Interface, Radiology Results [facility] - 10/06/2018 6:35 PM DIE SINKER EXAMINATION: MRI PELVIS W WO CONTRAST CLINICAL [...] evidence of abscess formation or inflammatory changes. [id number] Performing Organization Address City/State/Zipcode Phone Number [facility] [address] [place] [address] * CT Abdomen Pelvis W Contrast (10/06/2018 5:35 PM DIE SINKER) Narrative Performed At EXAMINATION:CT ABDOMEN PELVIS W [...] with maximum diameter of 3.4 cm, unchanged. [facility]-[id number] Procedure Note [facility], Radiology Results Incoming - 10/06/2018 5:55 PM DIE SINKER EXAMINATION: CT ABDOMEN PELVIS W CONTRAST CLINICAL [...] with maximum diameter of 3.4 cm, unchanged. [facility]-[id number] Performing Organization Address City/[facility]/Zipcode Phone Number [facility] [address] [place] [address] * Estimated GFR (10/06/2018 5:53 AM DIE SINKER) Only the most recent of 7 results within the time period is included. Estimated GFR 85 mL/min/1.73 m2 [facility] Comment: [facility] CatergoryUnitsInte rpretation G1 >=90 Normal or high G2 60-89Mildly decreased Q6n80-09 Mildly to moderately decreased H1k83-95 Moderately to severely decreased G4 15-29Severely decreased G5 <15Kidney failure The eGFR was calculated using the Chronic Kidney Disease Epidemiology Collaboration (CKD-EPI) equation. Interpretation is based on recommendations of the National Kidney Foundation-Kidney Disease Outcomes Quality Initiative (NKF-KDOQI) published in 2014. Specimen Plasma specimen Performing Organization Address City/[facility]/Zipcode Phone Number [facility] DEPARTMENT OF [address] [place] [address] PATHOLOGY AND GENOMIC MEDICINE [place] [address] [address] * CBC with platelet and differential (10/06/2018 5:53 AM DIE SINKER) Only the most recent of 9 results within the time period is included. WBC 6.1 4.2 - 11.0 k/uL [facility] RBC 4.07 4.04 - 5.86 m/uL [facility] HGB 12.0 (L) 13.0 - 17.3 g/dL [facility] HCT 37.8 34.0 - 45.0 % [facility] MCV 92.9 80.0 - 98.0 fL [facility] MCH 29.5 27.0 - 34.0 pg [facility] MCHC 31.7 31.5 - 36.5 g/dL [facility] RDW - SD 46.1 37.0 - 51.0 fL [facility] MPV 9.6 7.4 - 10.4 fL [facility] Platelet count 238 150 - 400 k/uL [facility] Nucleated RBC 0.00 /100 WBC [facility] Neutrophils 52.7 36.0 - 66.0 % [facility] Lymphocytes 32.8 24.0 - 44.0 % [facility] Monocytes 10.3 (H) 0.0 - 6.0 % [facility] Eosinophils 2.6 0.0 - 6.0 % [facility] Basophils 0.5 0.0 - 1.2 % [facility] Immature granulocytes 1.1 (H) 0.0 - 1.0 % [facility] Specimen Blood Performing Organization Address City/State/Zipcode Phone Number [facility] DEPARTMENT OF [address] [place] [address] PATHOLOGY AND GENOMIC MEDICINE [place] [address] [address] * Basic metabolic panel (10/06/2018 5:53 AM DIE SINKER) Only the most recent of 6 results within the time period is included. Sodium 141 135 - 150 mEq/L [facility] Potassium 4.1 3.5 - 5.0 mEq/L [facility] Chloride 104 98 - 112 mEq/L [facility] CO2 27 24 - 31 mmol/L [facility] Anion gap 10@ANIO 7 - 15 mEq/L [facility] BUN 14 7 - 18 mg/dL [facility] Creatinine 0.90 0.70 - 1.20 mg/dL [facility] Glucose 98 65 - 100 mg/dL [facility] Calcium 8.6 (L) 8.8 - 10.2 mg/dL [facility] Specimen Plasma specimen Performing Organization Address City/State/Zipcode Phone Number [facility] DEPARTMENT OF [address] [place] [id number] PATHOLOGY AND GENOMIC MEDICINE [address] * Surgical pathology request (10/04/2018 1:48 PM DIE SINKER) [facility] DEPARTMENT OF PATHOLOGY AND GENOMIC MEDICINE Surgical pathology report See link below for PDF Lab [facility] DEPARTMENT OF Report PATHOLOGY AND GENOMIC MEDICINE Result status This is Final Report for [facility] DEPARTMENT OF [id number] PATHOLOGY AND GENOMIC MEDICINE Performing Organization Address City/[facility] [place] [address] PATHOLOGY AND GENOMIC MEDICINE * Prothrombin time with INR (10/04/2018 6:13 AM DIE SINKER) Only the most recent of 4 results within the time period is included. Prothrombin time 13.9 11.5 - 14.5 sec [facility] INR 1.10 [facility] Comment: [facility] For patients on anticoagulant therapy, reference ranges below: Indication: INR Value Treatment of Venous Thrombosis, 2.0-3.0 pulmonary emboli, or prophylaxis of a venous thrombosis, or systemic emboli. High dose, high risk patients 3.0-4.5 with mechanical valves. NOTE:INR values over 3.0 are sometimes associated with gastrointestinal hemorrhage, especially values over 4.0. Specimen Blood Performing Organization Address City/[facility] Phone Number [facility] [address] [place] [address] PATHOLOGY AND GENOMIC MEDICINE [address] * Comprehensive metabolic panel (10/04/2018 6:13 AM DIE SINKER) Only the most recent of 3 results within the time period is included. Sodium 141 135 - 150 mEq/L [facility] Potassium 4.2 3.5 - 5.0 mEq/L [facility] Chloride 107 98 - 112 mEq/L [facility] CO2 24 24 - 31 mmol/L [facility] Anion gap 10@ANIO 7 - 15 mEq/L [facility] BUN 12 7 - 18 mg/dL [facility] Creatinine 0.90 0.70 - 1.20 mg/dL [facility] Glucose 117 (H) 65 - 100 mg/dL [facility] Calcium 8.7 (L) 8.8 - 10.2 mg/dL [facility] Protein 6.4 6.3 - 8.3 g/dL [facility] Albumin 2.9 (L) 3.5 - 5.0 g/dL [facility] A/G ratio 0.8 0.7 - 3.8 [facility] Alkaline phosphatase 58 0 - 129 U/L [facility] AST 18 10 - 50 U/L [facility] ALT 19 5 - 50 U/L [facility] Total bilirubin 0.4 0.2 - 1.2 mg/dL [facility] Specimen Plasma specimen Performing Organization Address City/[facility] Phone Number [facility] DEPARTMENT OF [address] [place] [address] PATHOLOGY AND GENOMIC MEDICINE [place] [id number] [address] * Gram stain (10/03/2018 6:01 PM DIE SINKER) Only the most recent of 3 results within the time period is included. Gram stain result Few WBC's [facility] No organisms seen HOSPITAL Comment: Specimen Information Specimen Source: Urine Specimen Site: Clean catch Specimen Urine Performing Organization Address City/State/Zipcode Phone Number [facility] DEPARTMENT OF [address] [place] [address] PATHOLOGY AND GENOMIC MEDICINE [address] * Urine culture (10/03/2018 6:01 PM DIE SINKER) Only the most recent of 2 results within the time period is included. Urine culture isolate No growth after 24 hours [facility] Comment: HOSPITAL Specimen Information Specimen Source: Urine Specimen Site: Clean catch Specimen Urine Performing Organization Address City/[facility]/Zipcode Phone Number [facility] DEPARTMENT OF [address] [place] [address] PATHOLOGY AND GENOMIC MEDICINE [address] [address] HOSPITAL * Urinalysis screen and microscopy, with reflex to culture (10/03/2018 5:27 PM DIE SINKER) Only the most recent of 2 results within the time period is included. Specimen site Clean catch [facility] Color, UA Yellow [facility] Appearance, UA Clear [facility] Specific gravity, UA 1.008 1.001 - 1.035 [facility] pH, UA 7.0 5.0 - 8.5 [facility] Protein, UA Negative Negative [facility] Glucose, UA Negative Negative [facility] Ketones, UA Negative Negative [facility] Bilirubin, UA Negative Negative [facility] Blood, UA Negative Negative [facility] Nitrite, UA Negative Negative [facility] Urobilinogen, UA Negative <2.0 [facility] Leukocyte esterase, UA Large (A) Negative [facility] Epithelial cells, UA Few /HPF [facility] WBC, UA 76 (H) 0 - 1 /HPF [facility] RBC, UA 9 (H) 0 - 5 /HPF [facility] Bacteria, UA None seen None seen [facility] Yeast, UA Few (A) [facility] Yeast with pseudohyphae, None seen [facility] Specimen Urine Performing Organization Address City/[facility]/Zipcode Phone Number [facility] DEPARTMENT OF [address] [place] [address] PATHOLOGY AND GENOMIC MEDICINE [facility] [address] [place], [place] [phone] [place] [address] * XR Chest 1 Vw Portable (10/03/2018 3:42 PM DIE SINKER) Only the most recent of 3 results within the time period is included. Narrative Performed At EXAMINATION:XR CHEST 1 VW PORTABLE HM [facility] CLINICAL HISTORY:preop COMPARISON:July 09, 2018 IMPRESSION: Lines: None Lungs and pleura: Bibasilar subsegmental atelectasis versus scarring. No consolidations. No pleural effusion or pneumothorax. Heart and mediastinum: Stable appearance of cardiomediastinal silhouette. Bones: No suspicious osseous lesions. [facility]-[id number] Procedure Note Hm Interface, Radiology Results Incoming - 10/03/2018 3:49 PM DIE SINKER EXAMINATION: XR CHEST 1 VW PORTABLE CLINICAL HISTORY: preop COMPARISON: July 09, 2018 IMPRESSION: Lines: None Lungs and pleura: Bibasilar subsegmental atelectasis versus scarring. No consolidations. No pleural effusion or pneumothorax. Heart and mediastinum: Stable appearance of cardiomediastinal silhouette. Bones: No suspicious osseous lesions. [facility]-[id number] Performing Organization Address [facility] Phone Number [facility] [address] [place] [address] * Partial thromboplastin time, activated (10/03/2018 3:30 PM DIE SINKER) Only the most recent of 2 results within the time period is included. PTT 27.5 23.0 - 36.0 sec [facility] Comment: [facility] PTT therapeutic range for unfractionated heparin is 61.0-112.0 seconds which corresponds to Anti-Xa 0.3-0.7 U/ml. Note:Change in Panic Value The PTT Panic Value is changing from 110 sec. to 100 sec. due to new instrumentation and reagents. Correlation studies have been performed to validate this result. Specimen Blood Performing Organization Address City/[facility] Phone Number [facility] DEPARTMENT OF [address] [place] [address] PATHOLOGY AND GENOMIC MEDICINE [place] [address] [address] [place], [place] [phone] [place] [address] * Type and screen (10/03/2018 3:30 PM DIE SINKER) ABO grouping A [facility] Rh type POS [facility] Antibody screen (gel) NEG [facility] Specimen Blood Performing Organization Address [facility] Phone Number [facility] DEPARTMENT OF [address] [place] [address] PATHOLOGY AND GENOMIC MEDICINE [facility] [address] [place] [address] [facility] * ECG ED Preliminary Interpretation - Not an Order (10/03/2018 3:08 PM DIE SINKER) Only the most recent of 2 results within the time period is included. Narrative Performed At Violet Newsome DO 10/04/20188:21 PM ECG ED Preliminary Interpretation - Not an Order Performed by: Violet Newsome DO Authorized by: Violet Newsome DO ECG reviewed by ED Physician in the absence of a structural mill supervisor: yes Interpretation: Interpretation: abnormal Rate: ECG rate:59 ECG rate assessment: bradycardic Rhythm: Rhythm: sinus bradycardia Ectopy: Ectopy: none QRS: QRS axis:Left QRS intervals:Normal Conduction: Conduction: normal ST segments: ST segments:Normal T waves: T waves: normal * MRI Lumbar Spine Wo Contrast (10/03/2018 3:08 PM DIE SINKER) Narrative Performed At [facility] EXAMINATION: MRI [...] annular fissure noted. This is unchanged from 2010. L4-L5: There is disc bulge with facet [...] the lower lumbar spine without significant stenosis. [id number] Procedure Note Hm Interface, Radiology Results Incoming - 10/03/2018 3:21 PM DIE SINKER EXAMINATION: MRI LUMBAR SPINE WO CONTRAST CLINICAL [...] the lower lumbar spine without significant stenosis. [facility]-[id number] Performing Organization Address [facility] Phone [facility] [address] [place] [address] * ECG 12 lead (10/03/2018 1:54 PM DIE SINKER) Only the most recent of 5 results within the time period is included. Ventricular rate 59 [facility] Atrial rate 59 [facility] HI interval 164 [facility] QRSD interval 142 [...] lengthened- Narrative Performed At Performing Organization Address [facility] Phone Number [facility] MUSE [address] [place] [address] * POC glucose (07/11/2018 11:40 AM DIE SINKER) Only the most recent of 2 results within the time period is included. POC glucose 97 65 - 100 mg/dL BROWN MICHELLE Comment: [facility] Meter ID: [id number] Hotel Desk Clerk: Alda Barakat Performing Organization Address City/[facility]/Zipcode Phone Number [facility] DEPARTMENT OF [address] [place] [address] PATHOLOGY AND GENOMIC MEDICINE [facility] [address] [place], [place] [id number] [place] [address] * Echocardiogram complete w contrast and 3D if needed (07/09/2018 8:57 PM DIE SINKER) Ao Root Diameter 3.43 cm [facility] [...] [facility] AoV area i VTI BSA Perla 1.26 cm2/m2 [facility] MR Vmax 4.93 [...] Address City/State/Zipcode Phone Number [facility] [address] [place] [address] * Arterial blood gas (07/09/2018 7:29 PM DIE SINKER) Hotel Desk Clerk germain owens [facility] Collection site rra [facility] O2 therapy nc [facility] pH, arterial 7.462 (H) 7.350 - 7.450 units [facility] pCO2, arterial 35.9 35.0 - 45.0 mmHg [facility] pO2, arterial 80.4 80.0 - 90.0 mmHg [facility] O2 saturation, arterial 96.4 95.0 - 100.0 % [facility] Base excess, arterial 1.8 mEq/L [facility] Bicarbonate 25.6 21.0 - 28.0 mEq/L [facility] O2 content 17.7 VOL% [facility] FiO2, inspired O2% 28.0 % [facility] Carboxyhemoglobin 0.3 0.0 - 1.4 % [facility] Comment: [facility] Reference Ranges: Carboxyhemoglobin Non smoker: 0.0 - 2.0% Smoker: 2.1 - 5.0% Heavy smoker: 5.1 - 9% Methemoglobin 1.5 (H) 0.0 - 1.0 % [facility] Hemoglobin, blood gas 13.3 (L) 14.0 - 18.0 g/dL [facility] pO2, A-a 76.7 mmHg [facility] Specimen Blood Performing Organization Address City/[facility]/Zipcode Phone Number [facility] DEPARTMENT OF [address] [place] [address] PATHOLOGY AND GENOMIC MEDICINE [facility] [address] [facility] [address] * Blood culture, aerobic & anaerobic (07/09/2018 7:03 PM DIE SINKER) Only the most recent of 4 results within the time period is included. Blood culture isolate No growth after 5 days of [facility] incubation. HOSPITAL Comment: Specimen Information Specimen Source: Blood Specimen Site: Peripheral Hand Left Specimen Blood Performing Organization Address City/State/Zipcode Phone Number [facility] DEPARTMENT OF [address] [place] [address] PATHOLOGY AND GENOMIC MEDICINE [address] * Procalcitonin (07/09/2018 6:59 PM DIE SINKER) Procalcitonin 19.90 (H) <=0.07 ng/mL [facility] Comment: INTERPRETIVE INFORMATION: Procalcitonin Effective February 07, 2018, this test is performed by the [employer] Procalcitonin assay. A correction has been [...] condition(s) of the individual patient. Performed at: [facility] [address] [facility] [address] Specimen Serum Performing Organization Address City/State/Zipcode Phone Number [facility] [address] [place] [address] [facility] [address] [place] [address] * Troponin (07/09/2018 6:59 PM DIE SINKER) Only the most recent of 4 results within the time period is included. Troponin <0.30 0.00 - 0.30 ng/mL [facility] Comment: [facility] 0.11 - 1.49 ng/mlMay indicate increased risk of acute coronary syndrome. >=1.5 ng/ml Consistent with acute myocardial infarction. The diagnostic value of a single normal or non-diagnostic result is questionable.Serial samples at 2-6 hour intervals are required to rule out acute myocardial injury. Specimen Plasma specimen Performing Organization Address City/State/Zipcode Phone Number [facility] [address] [place] [address] PATHOLOGY AND GENOMIC MEDICINE [place] [id number] * C-reactive protein (07/09/2018 6:59 PM DIE SINKER) CRP 9.65 (H) 0.00 - 0.50 mg/dL [facility] Specimen Plasma specimen Performing Organization Address City/[facility] Phone Number [facility] DEPARTMENT OF [address] [place] [address] PATHOLOGY AND GENOMIC MEDICINE [address] * Thyroid stimulating hormone (07/09/2018 6:59 PM DIE SINKER) TSH 0.30 0.27 - 4.20 uIU/mL [facility] Specimen Plasma specimen Performing Organization Address [facility] Phone Number [facility] DEPARTMENT OF [facility] [place] [address] PATHOLOGY AND GENOMIC MEDICINE [address] * T4, free (07/09/2018 6:59 PM DIE SINKER) T4, free 0.90 0.90 - 1.70 ng/dL [facility] Specimen Plasma specimen Performing Organization Address [facility] Phone Number [facility] DEPARTMENT OF [address] [facility] [place] [address] PATHOLOGY AND GENOMIC MEDICINE [address] * Phosphorus level (07/09/2018 6:59 PM DIE SINKER) Phosphorus 2.8 2.4 - 4.5 mg/dL [facility] Specimen Plasma specimen Performing Organization Address [facility] Phone Number [facility] [place] [address] [place] [address] [place] [address] PATHOLOGY AND GENOMIC MEDICINE [address] * B natriuretic peptide (07/09/2018 6:59 PM DIE SINKER) Only the most recent of 2 results within the time period is included. BNP 297 (H) 0 - 100 pg/mL [facility] Specimen Blood Performing Organization Address City/[facility]/Zipcode Phone Number [facility] DEPARTMENT OF [address] [place] [address] PATHOLOGY AND GENOMIC MEDICINE [place] [address] [facility] [address] * Magnesium level (07/09/2018 6:59 PM DIE SINKER) Magnesium 2.00 1.60 - 2.40 mg/dL [facility] Specimen Plasma specimen Performing Organization Address City/[facility] Phone Number [facility] DEPARTMENT OF [address] [facility] [place] [address] PATHOLOGY AND GENOMIC MEDICINE [address] * Lipase level (07/09/2018 6:59 PM DIE SINKER) Only the most recent of 2 results within the time period is included. Lipase 16 13 - 60 U/L [facility] Specimen Plasma specimen Performing Organization Address [facility] Phone Number [facility] [place] [address] [place] [address] [place] [address] PATHOLOGY AND GENOMIC MEDICINE [address] * Lactic acid level (07/09/2018 6:59 PM DIE SINKER) Lactic acid 1.7 0.5 - 2.2 mmol/L [facility] Specimen Blood Performing Organization Address [facility] Phone Number [facility] DEPARTMENT OF [address] [place] [address] PATHOLOGY AND GENOMIC MEDICINE [address] * Creatine kinase, total (CPK) (07/09/2018 6:59 PM DIE SINKER) Creatine kinase 69 39 - 308 U/L [facility] Specimen Plasma specimen Performing Organization Address City/[facility] Phone Number [facility] [place] [address] [place] [address] [place] [address] PATHOLOGY AND GENOMIC MEDICINE [place] [address] [facility] [address] * Ionized calcium (07/09/2018 6:59 PM DIE SINKER) pH 7.40 [facility] Ionized calcium 1.16 1.11 - 1.32 mmol/L [facility] Specimen Plasma specimen Performing Organization Address City/State/Zipcode Phone Number [facility] DEPARTMENT OF [address] [place] [address] PATHOLOGY AND GENOMIC MEDICINE [facility] [address] [place], [place] [id number] [place] [address] * Respiratory culture (07/08/2018 5:10 PM DIE SINKER) Respiratory culture Normal oral richard isolated. [facility] isolate Comment: HOSPITAL Specimen Information Specimen Source: Bronchial Washing Specimen Site: All Lobes Specimen Bronchial washing - Washing Performing Organization Address City/[facility]/Zipcode Phone Number [facility] DEPARTMENT OF [address] [place] [address] PATHOLOGY AND GENOMIC MEDICINE [address] * CT Abdomen Pelvis W Wo Contrast (07/08/2018 10:28 AM DIE SINKER) Narrative Performed At EXAMINATION:CT ABDOMEN PELVIS W WO CONTRAST [facility] CLINICAL HISTORY:Abnormal findings on diagnostic imaging of other parts of digestive tract, liver [id number] cm possible liver lesion TECHNIQUE: Multiple axial [...] factors High risk patients: *Greater than 20 [id number] history of smoking, or equivalent second hand [...] short axes rounded to the nearest mm. [id number] Procedure Note Hm Interface, Radiology Results Incoming - 07/08/2018 10:54 AM DIE SINKER EXAMINATION: CT ABDOMEN PELVIS W WO CONTRAST [...] High risk patients: * Greater than 20 [id number] history of smoking, or equivalent second hand [...] short axes rounded to the nearest mm. [id number] Performing Organization Address City/State/Zipcode Phone Number [facility] [address] [place] [address] * Venous blood gas (07/08/2018 6:14 AM DIE SINKER) Hotel Desk Clerk [id number] [facility] Collection site R HAND [facility] pH, venous 7.423 (H) 7.320 - 7.420 units [facility] pCO2, venous 44.1 (L) 45.0 - 51.0 mmHg [facility] pO2, venous 59.3 (H) 25.0 - 40.0 mmHg [facility] O2 saturation, venous 91.3 (H) 40.0 - 70.0 % [facility] Base excess, venous 4.3 (H) -2.0 - 2.0 mEq/L [facility] Bicarbonate 28.8 (H) 21.0 - 28.0 mEq/L [facility] O2 content 17.1 VOL% [facility] FiO2, inspired O2% 21.0 % [facility] Carboxyhemoglobin 0.9 0.0 - 1.4 % [facility] Comment: [facility] Reference Ranges: Carboxyhemoglobin Non smoker: 0.0 - 2.0% Smoker: 2.1 - 5.0% Heavy smoker: 5.1 - 9% Methemoglobin 1.3 (H) 0.0 - 1.0 % [facility] Hemoglobin, blood gas 13.6 (L) 14.0 - 18.0 g/dL [facility] Specimen Blood Performing Organization Address City/[facility] Hospital[place] [address] PATHOLOGY AND [facility] MEDICINE [address] * Lactic acid level, SEPSIS - Now and repeat 2x every 3 hours (07/08/2018 3:44 AM DIE SINKER) Only the most recent of 3 results within the time period is included. Lactic acid 1.2 0.5 - 2.2 mmol/L [facility] Specimen Blood Performing Organization Address City/[facility] [address] PATHOLOGY AND GENOMIC MEDICINE [address] * CT Angiogram Pe Chest (07/08/2018 12:24 AM DIE SINKER) Narrative Performed At EXAMINATION: [facility] CT [...] are seen of left renal collecting system. [facility]-[id number] Procedure Note Interface, Radiology Results Incoming - 07/08/2018 12:45 AM DIE SINKER EXAMINATION: CT ANGIOGRAM PE CHEST CLINICAL HISTORY: [...] are seen of left renal collecting system. [facility]-[id number] Performing Organization Address City/State/Zipcode Phone Number [facility] [address] [place] [address] * Sepsis Clinical Assessment (07/07/2018 9:38 PM DIE SINKER) Narrative Performed At Robert Rich NP 07/08/20186:24 AM Reperfusion assessment done Sepsis Clinical Assessment Performed by: Robert Rich NP Authorized by: Robert Rich NP Sepsis Clinical Assessment General Assessment Information Current sepsis score:2 On comfort care?: No If score does not worsen, snooze alerts until:07/08/2018 09:00 DIE SINKER SIRS Criteria Temperature > 38.3 C (101 [...] administrations. * CRITICAL CARE (07/07/2018 8:49 PM DIE SINKER) Narrative Performed At Herminio Dick MD 07/08/2018 [...] * Hepatic function panel (07/07/2018 8:38 PM DIE SINKER) Albumin 3.2 (L) 3.5 - 5.0 g/dL [facility] Total bilirubin 0.9 0.2 - 1.2 mg/dL [facility] Bilirubin direct 0.2 0.0 - 0.4 mg/dL [facility] Alkaline phosphatase 57 0 - 129 U/L [facility] Protein 6.3 6.3 - 8.3 g/dL [facility] ALT 17 5 - 50 U/L [facility] AST 26 10 - 50 U/L [facility] Specimen Plasma specimen Performing Organization Address City/State/Zipcode Phone Number [facility] DEPARTMENT OF [address] [place] [address] PATHOLOGY AND GENOMIC MEDICINE [place] [address] [address] * [place] Pyelogram Retrograde (02/15/2018 2:31 PM [...] 47 seconds. 4 image(s). Performing Organization Address [facility] Phone Number [facility] [address] [place] [address] * ECG Pre/Post Op (02/10/2018 12:41 PM CDT) Ventricular rate 49 [facility] Atrial rate 49 [facility] HI interval 136 [facility] QRSD interval 130 [facility] QT interval 444 [facility] QTC interval 401 [facility] P axis 1 27 [facility] QRS axis 1 -49 [facility] T wave axis 31 [facility] EKG impression Marked sinus bradycardia-Right [facility] M[facility] bundle branch block-Left anterior fascicular block-^^^ Bifascicular block ^^^-Possible Lateral infarct , age undetermined-Abnormal ECG-In automated comparison with ECG of 17-MAY-2013 16:37,-Vent. rate has decreased BY26 BPM-(RBBB and left anterior fascicular block) is now present- Performing Organization Address [facility] Phone Number [facility] NAOMI [address] [place] [address] * Estimated GFR (02/10/2018 12:20 PM CDT) Only the most recent of 2 results within the time period is included. GFR Non Af Amer 73 mL/min/1.73 m2 [facility] DEPARTMENT OF PATHOLOGY AND GENOMIC MEDICINE GFR Af Amer 89 mL/min/1.73 m2 [facility] DEPARTMENT OF Comment: PATHOLOGY [...] Americans. Specimen Plasma specimen Performing Organization Address City/State/Zipcode Phone Number [facility] [address] [place] [address] PATHOLOGY AND GENOMIC MEDICINE * CBC hemogram (01/11/2018 11:43 AM CDT) WBC 4.0 (L) 4.2 - 11.0 k/uL [facility] DEPARTMENT OF PATHOLOGY AND GENOMIC MEDICINE RBC 4.90 4.04 - 5.86 m/uL [facility] DEPARTMENT OF PATHOLOGY AND GENOMIC MEDICINE HGB 14.4 13.0 - 17.3 g/dL [facility] DEPARTMENT OF PATHOLOGY AND GENOMIC MEDICINE HCT 45.0 34.0 - 45.0 % [facility] DEPARTMENT OF PATHOLOGY AND GENOMIC MEDICINE MCV 91.8 80.0 - 98.0 fL [facility] DEPARTMENT OF PATHOLOGY AND GENOMIC MEDICINE MCH 29.4 27.0 - 34.0 pg [facility] DEPARTMENT OF PATHOLOGY AND GENOMIC MEDICINE MCHC 32.0 31.5 - 36.5 g/dL [facility] DEPARTMENT OF PATHOLOGY AND GENOMIC MEDICINE RDW - SD 48.1 37.0 - 51.0 fL [facility] DEPARTMENT OF PATHOLOGY AND GENOMIC MEDICINE MPV 10.9 (H) 7.4 - 10.4 fL [facility] DEPARTMENT OF PATHOLOGY AND GENOMIC MEDICINE Platelet count 171 150 - 400 k/uL [facility] DEPARTMENT OF PATHOLOGY AND GENOMIC MEDICINE Nucleated RBC 0.00 /100 WBC [facility] DEPARTMENT OF PATHOLOGY AND GENOMIC MEDICINE Specimen Blood Performing Organization Address City/[facility] Phone Number [facility] [address] [place] [address] PATHOLOGY AND GENOMIC MEDICINE * Prostate specific antigen (01/11/2018 11:43 AM CDT) PSA 5.1 (H) 0.0 - 4.0 ng/mL [facility] DEPARTMENT OF Comment: PATHOLOGY AND The HAO 8000 PSA immunoassay [facility] was used. Results obtained with different assay methods or kits should not be used interchangeably and may be different. Specimen Plasma specimen Performing Organization Address City/State/Zipcode Phone Number [facility] DEPARTMENT OF [address] [place] [address] PATHOLOGY AND GENOMIC MEDICINE * US Prostate [...] prostate. Performing Organization Address City/State/Zipcode Phone Number [facility] [address] [place] [address] after 2017 Insurance Payer Benefit Subscriber ID Type Phone Address Plan / Group MEDICARE MEDICARE xxxxxxxxxxx Medicare [place], [place] PART A AND B [employer] x[employer]xxx Commercial [employer] Advance Directives Patient has advance care planning documents on file. For more information, eduardo manuel contact: Brown Michelle [address] [place] [address]
--- NOTE | 2018-12-08 11:10 | NUR ---
Direct admit from home. Received patient via wheelchair. Accompanied by . AAOx4 to time, person, place, situation. Respirations even and unlabored. c/o groin pain 05/18. Oriented patient to room. Instructed patient to use call light for assistance. Paged to notify of admission. Will continue to monitor.
[2018-12-08] MEDS ORDERED: OXYCODONE HCL20 M1 PO (11:40)
[2018-12-08] MEDS ORDERED: CARBINOXAMINE MA4 MG PO (11:40)
[2018-12-08] MEDS ORDERED: PREDNISONE10 MG PO (11:40)
[2018-12-08] MEDS ORDERED: ATORVASTATIN CA20 MG PO (11:40)
[2018-12-08 12:00] VITALS: BP 127/71
[2018-12-08] MEDS ORDERED: HYDROCODONE/APAP 5MG-325MG TAB PO ONE (12:15)
[2018-12-08 12:31] VITALS: BP 127/71
[2018-12-08] MEDS ORDERED: MEROPENEM 1GM 100 ML IV SCH (14:45)
[2018-12-08] MEDS ORDERED: OXYCODONE HCL 20 MG TAB CR PO PRN (14:45)
[2018-12-08] MEDS ORDERED: OXYCODONE HCL IR 5 MG TAB PO PRN (15:00)
[2018-12-08] MEDS ORDERED: ACETAMINOPHEN 325 MG TAB PO PRN (15:45)
[2018-12-08] MEDS ORDERED: ONDANSETRON HCL INJ 2MG/ML 2ML 2 MG/ML VIAL IV PRN (15:45)
--- NOTE | 2018-12-08 15:57 | Diagnostic Imaging Report ---
EXAMINATION: CHEST XRAY LINE PLACEMENT INDICATION: Status post PICC. COMPARISON: None FINDINGS: TUBES and LINES: Left-sided PICC terminates at the expected location of the mid SVC. LUNGS: Lungs are moderately inflated. Mild patchy left basilar opacity, likely atelectasis. There is no evidence of pneumonia or pulmonary edema. PLEURA: No pleural effusion or pneumothorax. HEART AND MEDIASTINUM: The cardiomediastinal silhouette is unremarkable. BONES AND SOFT TISSUES: No acute osseous abnormality. UPPER ABDOMEN: No free air under the diaphragm. IMPRESSION: Left-sided PICC terminates at the expected location of the mid SVC. No evidence of pneumothorax. Signed by: Dr. Yaneth Melchor MD on 12/08/2018 3:53 PM
[2018-12-08 16:22] VITALS: BP 111/65
[2018-12-08] MEDS ORDERED: SODIUM CHLORIDE 0.9% 250ML 250 ML ONE (16:47)
[2018-12-08] MEDS: MEROPENEM 1GM 100 ML IV SCH (17:06)
[2018-12-08] MEDS: PREGABALIN 50 MG CAP PO SCH (17:06)
[2018-12-08 17:13] LABS: BASOPHILS % 0.1 % (0.0-1.0); EOSINOPHILS # (AUTO) 0.1 (0.0-0.4); EOSINOPHILS % 0.8 % (0.0-6.0); HEMATOCRIT 34.5 % (38.2-49.6); HEMOGLOBIN 11.6 g/dL (14.0-18.0); LYMPHOCYTES # (AUTO) 1.2 (1.0-3.2); LYMPHOCYTES % 15.9 % (18.0-39.1); MEAN CORPUSCULAR HEMOGLOBIN 29.1 pg (28-32); MEAN CORPUSCULAR HGB CONC 33.6 g/dL (31-35); MEAN CORPUSCULAR VOLUME 86.7 fL (81-99); MONOCYTES # (AUTO) 0.4 (0.2-0.8); MONOCYTES % 5.9 % (4.4-11.3); NEUTROPHILS # (AUTO) 5.5 (2.1-6.9); NEUTROPHILS % 76.1 % (38.7-80.0); PLATELET COUNT 159 x10e3/uL (140-360); RED BLOOD COUNT 3.98 x10e6/uL (4.3-5.7); RED CELL DISTRIBUTION WIDTH 13.9 % (11.7-14.4)
[2018-12-08 17:26] LABS: ANION GAP 10.9 mmol/L (8-16); BLOOD UREA NITROGEN 19 mg/dL (7-26); BUN/CREATININE RATIO 21 (6-25); CALCIUM 9.2 mg/dL (8.4-10.2); CARBON DIOXIDE 26 mmol/L (22-29); CHLORIDE 105 mmol/L (98-107); EST GLOMERULAR FILTRATION RATE > 60 ML/MIN (60-); GLUCOSE 120 mg/dL (74-118); POTASSIUM 3.9 mmol/L (3.5-5.1); SODIUM 138 mmol/L (136-145)
--- NOTE | 2018-12-08 17:26 | History and Physical ---
CHIEF COMPLAINT: Pelvic pain. 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 The patient reports that back in June 2018, he had significant BPH and underlying fever requiring a TURP by a neurologist in [place] and which at that time was discharged to home. Subsequently, he developed fever, was admitted at [facility] for further evaluation and management. The patient apparently improved during that hospital stay, was eventually discharged to home. Subsequently after that the patient developed another fever requiring more intervention by the urologist. The patient was last here at our facility back in October 2018 and was found to have pubic symphysis, osteomyelitis requiring ID consultation. Since that time, the patient has been having difficulty ambulating due to severe pain. Reports that he has suprapubic tenderness on palpation. Prior to all this episode, the patient reports that he was ambulating well with no issues. The patient was seen and evaluated at bedside on the medical floor currently. He is doing well with no other issues at this time. REVIEW OF SYSTEMS: Pertinent positives: Pelvic pain. Pertinent negatives: Denies any chest pain, palpitation, nausea, vomiting, diarrhea, dysuria, hematuria, frequency, urgency, lightheadedness, dizziness, abdominal pain, headaches, shortness of breath, cough, congestion, fever, or any other complaints. The rest of 14-point review of systems have been reviewed with the patient and are negative. ALLERGIES: NO KNOWN DRUG ALLERGIES. HOME MEDICATIONS: Lipitor 20 mg daily, losartan 20 mg daily, oxycodone 5 mg p.o. b.i.d. p.r.n. for pain, prednisone 10 mg daily, simvastatin 20 mg daily, tamsulosin 0.4 mg at bedtime, trazodone 100 mg at bedtime. PAST MEDICAL HISTORY: Chronic hip and pelvic pain, osteomyelitis, pubic symphysis, hypertension, hyperlipidemia. SURGICAL HISTORY: Two TURP procedures in June 2018 FAMILY HISTORY: Hypertension, diabetes. SOCIAL HISTORY: No drugs. Smokes hookah. No alcohol. He is , has children. LABORATORY DATA: Lab findings show labs are pending at this time. Imaging MRI of the pelvis with and without contrast with bilateral hips as well as MRI of the lumbar spine is pending. PHYSICAL EXAMINATION: VITAL SIGNS: Temperature is 96.9, pulse 62, respiratory rate is 20, blood pressure 122/71, pulse ox 97% on room air. GENERAL: Not in acute distress. Alert and oriented x3. Cooperative on examination. HEENT: Head is normocephalic and atraumatic. Eyes; pupils are equal, round, and reactive to light bilaterally. Extraocular muscles are intact bilaterally. Throat, no evidence of erythema or exudates in the posterior pharynx. Has poor dentition. NECK: Supple. Good range of motion. PULMONARY: Clear to auscultation bilaterally. No wheezing, no rales, no rhonchi, no crackles appreciated. CARDIOVASCULAR: Positive S1, S2. No murmurs, rubs, or gallops appreciated. ABDOMEN: Soft, nondistended, and nontender to palpation. Bowel sounds present. MUSCULOSKELETAL: Strength is 5/5 throughout. No evidence of any muscle deficits on examination. No weakness appreciated. NEUROLOGICAL: Cranial nerves II through XII grossly intact. No evidence of any neurological deficits on exam. SKIN: Intact. Warm to touch. Good cap refill. PSYCHIATRIC: Normal affect and mood. EXTREMITIES: No edema. Good range of motion throughout. IMPRESSION: 1. Pubic symphysis, septic arthritis with osteomyelitis. 2. Chronic pain syndrome. 3. Hypertension. 4. History of benign prostatic hypertrophy. PLAN: At this time I discussed the case with ID, who recommends MRI of the pelvis with bilateral hips with and without contrast as well as MRI of the lumbar spine. Those imaging studies have been ordered. IV antibiotics per ID, who recommends Merrem 1 g q.8 hours which has been started. Overall, I resumed all his home medications. Put on Lovenox for DVT prophylaxis. Get PT, OT eval. We also ordered CBC, CMP, CRP, sedimentation rate. We also started him on Lyrica 50 mg p.o. b.i.d. for possible neuropathic pain. We will continue to follow closely. Discussed this case already with ID. MD JOANIE Her/PAWAN /[id number]
[2018-12-08 17:54] LABS: ERYTHROCYTE SEDIMENTATION RATE 23 mm/hr (0-13)
[2018-12-08] MEDS: HYDROMORPHONE 2MG/ML 2 MG/ML ML IV PRN (17:57)
--- NOTE | 2018-12-08 19:20 | NUR ---
Bedside report given to oncoming nurse of patient's status. No s/s of acute distress noted. at bedside
--- NOTE | 2018-12-08 19:47 | NUR ---
RECEIVED PT IN BED AOX3 .C/O PAIN AT THE GROIN AREA .RESPIRATIONS ARE EVEN AND UNLABORED .LEFT PICC S/L . AT BEDSIDE .CALL LIGHT WITH IN REACH .CONTINUE TO MONITOR
[2018-12-08 20:00] VITALS: BP 146/88
[2018-12-08] MEDS ORDERED: TRAZODONE HCL 50 MG TAB PO SCH (21:00)
[2018-12-08] MEDS: TAMSULOSIN HCL 0.4 MG CAP PO SCH (21:17)
[2018-12-08] MEDS: ATORVASTATIN 20 MG TAB PO SCH (21:17)
[2018-12-08] MEDS: TRAZODONE HCL 50 MG TAB PO PRN (21:58)
--- NOTE | 2018-12-08 22:07 | History and Physical ---
CHIEF COMPLAINT: The patient with severe pain in the pelvic area, history of osteomyelitis of the pubic bone, history of prostatitis. HISTORY OF PRESENT ILLNESS: Thank you so much for asking me to see this patient. This patient who is a very pleasant 73-year-old gentleman from [place] originally whom I saw back in October 2018 with pain of his pubic area. At that time, he had pain in the hip. He had TURP which was done twice before and there was concern if there was infection still present. The patient had two hospitalizations on IV antibiotic. He was readmitted to the [facility] where he had the first procedure, was discharged home that he was admitted to [place]. The patient came back again because of severe pain. I did see him on October 26 as mentioned above with severe pain. We did an MRI and the MRI was suggested that there could be a communication between the pubic bone and the prostate with infection. The patient was seen by Urology. He was seen by 2 urologists actually. He was seen by Orthopedic and we had the films read by different urologist. In the [facility], all felt there is no need for surgery just antibiotic. The patient was treated with meropenem because of the severity of the pain and limited mobility, the patient was transferred to rehab. The patient was in LTAC for about three weeks and then he was discharged home. He is getting IV meropenem 1 g q.12 hours. His sedimentation rate and C-reactive protein are coming down, they are not normal, but they are coming down and his pain at one point was controlled with his prednisone high dose, but he had side effects from it. He had a little bit of anxiety, so we had to wean down the dose, but then when we , the pain came back again with a vengeance. So, the patient is being admitted because he is having severe pain in the pubic area and as well as pain in the right hip. He can't walk from the severity of the pain. There was no fever or chills, but he had significant night sweats. He had to change his clothes. PAST MEDICAL HISTORY: Besides the benign prostatic hypertrophy, he denies any. PAST SURGICAL HISTORY: As mentioned above, TURP x2. ALLERGIES: NKA. SOCIAL HISTORY: There is no smoking, drug abuse, or alcohol abuse. FAMILY HISTORY: Negative. REVIEW OF SYSTEMS: At the present time: HEENT: There is no headache, visual changes or hearing changes. : There is no urgency and no frequency. He thinks the stream is good. JOINTS: Besides the pain which as mentioned above, he cannot walk well because of the pain. The patient has actually been seen by PT, OT before, as well as rehab, but the pain is getting progressively worse as mentioned above. With other joints, all within normal limit. There is no redness or swelling. SKIN: There is no rash. NEURO: There is no seizure activity or focal weakness, but there is weakness in the bilateral lower extremity from the pain. LABORATORY DATA: Reviewed. MEDICATIONS: He is currently on Lipitor, Cozaar, and meropenem. REVIEW OF SYSTEMS: As mentioned above, 14-point within normal limit. PHYSICAL EXAMINATION: GENERAL: He is currently alert, oriented, does not seem to be in acute distress. VITAL SIGNS: Stable, afebrile. Temperature 96.9, heart rate 80, and respirations 18. HEENT: Normocephalic, not icteric. NECK: Supple. No JVD. No lymphadenopathy. No thyromegaly. CHEST: Clear bilateral. HEART: S1, S2. No S3, S4, or murmur. ABDOMEN: Soft. Bowel sounds present. No tenderness. No hepatosplenomegaly. EXTREMITIES: There is no edema. SKIN: There is no rash. JOINTS: There is no erythema or edema. I am able to flex both hips passively without any pain and there is tenderness in the suprapubic area. LABORATORY DATA: His lab data is still pending, but I have reviewed the chart. I have also reviewed again the charts from my office again with the patient. IMPRESSION: Severe pain in the pubic area, etiology unclear. We will get MRI of the pelvis, MRI of bilateral hips as well as lumbar spine to assess this pain he is having. We will continue with meropenem at 1 g q.8 hours. We will check CBC, chemistry panel, sedimentation rate, C-reactive protein. Also get JAI and lupus workup workup. We asked PT and OT to see the patient. Discussed with Internal Medicine. Discussed with the patient. We will follow with you. Further recommendations pending on above workup. MD YOEL Crews /[id number]
[2018-12-08 22:10] VITALS: BP 146/88
[2018-12-09] MEDS ORDERED: SODIUM CHLORIDE 0.9% 250ML 250 ML ONE (00:38)
[2018-12-09] MEDS: MEROPENEM 1GM 100 ML IV SCH ×3 (01:19→18:00)
[2018-12-09 06:24] LABS: ANION GAP 9.5 mmol/L (8-16); BLOOD UREA NITROGEN 15 mg/dL (7-26); BUN/CREATININE RATIO 19 (6-25); CALCIUM 8.9 mg/dL (8.4-10.2); CARBON DIOXIDE 25 mmol/L (22-29); CHLORIDE 106 mmol/L (98-107); CREATININE, SERUM 0.79 mg/dL (0.72-1.25); EST GLOMERULAR FILTRATION RATE > 60 ML/MIN (60-); GLUCOSE 82 mg/dL (74-118); POTASSIUM 3.5 mmol/L (3.5-5.1); SODIUM 137 mmol/L (136-145)
[2018-12-09 06:25] LABS: BASOPHILS % 0.3 % (0.0-1.0); EOSINOPHILS # (AUTO) 0.2 (0.0-0.4); EOSINOPHILS % 2.8 % (0.0-6.0); HEMATOCRIT 35.1 % (38.2-49.6); HEMOGLOBIN 11.1 g/dL (14.0-18.0); LYMPHOCYTES # (AUTO) 2.1 (1.0-3.2); LYMPHOCYTES % 30.6 % (18.0-39.1); MEAN CORPUSCULAR HEMOGLOBIN 28.5 pg (28-32); MEAN CORPUSCULAR HGB CONC 31.6 g/dL (31-35); MONOCYTES # (AUTO) 0.5 (0.2-0.8); MONOCYTES % 7.6 % (4.4-11.3); NEUTROPHILS % 57.4 % (38.7-80.0); PLATELET COUNT 154 x10e3/uL (140-360); RED CELL DISTRIBUTION WIDTH 13.9 % (11.7-14.4)
[2018-12-09] MEDS: HYDROMORPHONE 2MG/ML 2 MG/ML ML IV PRN (08:18)
[2018-12-09 08:21] VITALS: BP 135/66
[2018-12-09] MEDS: LOSARTAN POTASSIUM 25 MG TAB PO SCH (08:40)
[2018-12-09] MEDS: PREGABALIN 50 MG CAP PO SCH (08:41)
[2018-12-09 09:00] VITALS: BP 135/66
[2018-12-09] MEDS ORDERED: SIMVASTATIN 40 MG TAB PO SCH (09:00)
[2018-12-09] MEDS ORDERED: PREDNISONE 20 MG TAB PO SCH (09:00)
[2018-12-09] MEDS ORDERED: NON-FORMULARY MEDICATION (Losartan Potassium 25 MG) PO SCH (09:00)
[2018-12-09] MEDS ORDERED: PREDNISONE 10 MG TAB PO SCH ×2 (09:00)
[2018-12-09] MEDS ORDERED: GADOBENATE DIMEGLUMINE 1 ML IV ONE (11:08)
[2018-12-09 12:00] VITALS: BP 132/60
--- NOTE | 2018-12-09 15:11 | Diagnostic Imaging Report ---
ADDENDUM #1 MRI of the left hip without contrast. History: Hip pain. Osteomyelitis. Comparison: MRI October 25, 2018 Technique: Multiplanar multisequence MRI of the hip with and without intravenous contrast. 15 cc IV gadolinium contrast material was administered. Findings: There is no acute cortical fracture, subluxation or evidence of avascular necrosis. Bone marrow edema in the sacral ala right side greater than left likely due to nondisplaced insufficiency type fracture. Osteomyelitis is thought to be unlikely in these regions. There is marked bone marrow edema in the pubic symphysis slightly more pronounced on the right with abnormal adjacent soft tissue edema. No focal fluid collection is seen. The urinary bladder and remainder of the visualized pelvic structures are grossly unremarkable. There is mild degenerative arthrosis in the hip joint with thinning of the articular cartilage at the superior lateral acetabulum and adjacent femoral head. There is no underlying bone marrow edema. There is degeneration and fraying of the labrum. There is a physiologic amount of fluid in the hip joint. The remainder of the visualized ligaments and tendons about the hip are intact. There is no evidence to suggest greater trochanteric bursitis. The visualized muscles are normal in size, signal intensity and morphology. The visualized neurovascular bundles are intact. Impression: There is marked bone marrow edema in the pubic symphysis slightly more pronounced on the right with abnormal adjacent soft tissue edema. No focal fluid collection is seen. This could be due to septic arthritis with osteomyelitis in the appropriate clinical setting. This appears essentially unchanged when compared with the prior exam dated October 25, 2018. Bone marrow edema in the sacral ala right side greater than left likely due to nondisplaced insufficiency type fracture. Osteomyelitis is thought to be unlikely in these regions. Signed by: Dr. Zac Cornell M.D. on 12/12/2018 8:21 AM ORIGINAL REPORT MRI of the left hip without contrast. History: Hip pain. Osteomyelitis. Technique: Multiplanar multisequence MRI of the hip with and without intravenous contrast. 15 cc IV gadolinium contrast material was administered. Findings: There is no acute fracture, subluxation or evidence of avascular necrosis. There is marked bone marrow edema in the pubic symphysis slightly more pronounced on the right with abnormal adjacent soft tissue edema. No focal fluid collection is seen. The urinary bladder and remainder of the visualized pelvic structures are grossly unremarkable. There is mild degenerative arthrosis in the hip joint with thinning of the articular cartilage at the superior lateral acetabulum and adjacent femoral head. There is no underlying bone marrow edema. There is degeneration and fraying of the labrum. There is a physiologic amount of fluid in the hip joint. The remainder of the visualized ligaments and tendons about the hip are intact. There is no evidence to suggest greater trochanteric bursitis. The visualized muscles are normal in size, signal intensity and morphology. The visualized neurovascular bundles are intact. Impression: There is marked bone marrow edema in the pubic symphysis slightly more pronounced on the right with abnormal adjacent soft tissue edema. No focal fluid collection is seen. This could be due to osteomyelitis in the appropriate clinical setting. Signed by: Dr. Zac Cornell M.D. on 12/09/2018 3:08 PM
--- NOTE | 2018-12-09 15:12 | Diagnostic Imaging Report ---
ADDENDUM #1 MRI of the right hip without contrast. History: Hip pain. Osteomyelitis. Comparison: MRI October 25, 2018 Technique: Multiplanar multisequence MRI of the hip with and without intravenous contrast. 15 cc IV gadolinium contrast material was administered. Findings: There is no acute cortical fracture, subluxation or evidence of avascular necrosis. Bone marrow edema in the sacral ala right side greater than left likely due to nondisplaced insufficiency type fracture. Osteomyelitis is thought to be unlikely in these regions. There is marked bone marrow edema in the pubic symphysis slightly more pronounced on the right with abnormal adjacent soft tissue edema. No focal fluid collection is seen. The urinary bladder and remainder of the visualized pelvic structures are grossly unremarkable. There is mild degenerative arthrosis in the hip joint with thinning of the articular cartilage at the superior lateral acetabulum and adjacent femoral head. There is no underlying bone marrow edema. There is degeneration and fraying of the labrum. There is a physiologic amount of fluid in the hip joint. The remainder of the visualized ligaments and tendons about the hip are intact. There is no evidence to suggest greater trochanteric bursitis. The visualized muscles are normal in size, signal intensity and morphology. The visualized neurovascular bundles are intact. Impression: There is marked bone marrow edema in the pubic symphysis slightly more pronounced on the right with abnormal adjacent soft tissue edema. No focal fluid collection is seen. This could be due to septic arthritis with osteomyelitis in the appropriate clinical setting. This appears essentially unchanged when compared with the prior exam dated October 25, 2018. Bone marrow edema in the sacral ala right side greater than left likely due to nondisplaced insufficiency type fracture. Osteomyelitis is thought to be unlikely in these regions. Signed by: Dr. Zac Cornell M.D. on 12/12/2018 8:23 AM ORIGINAL REPORT MRI of the right hip without contrast. History: Hip pain. Osteomyelitis. Technique: Multiplanar multisequence MRI of the hip with and without intravenous contrast. 15 cc IV gadolinium contrast material was administered. Findings: There is no acute fracture, subluxation or evidence of avascular necrosis. There is marked bone marrow edema in the pubic symphysis slightly more pronounced on the right with abnormal adjacent soft tissue edema. No focal fluid collection is seen. The urinary bladder and remainder of the visualized pelvic structures are grossly unremarkable. There is mild degenerative arthrosis in the hip joint with thinning of the articular cartilage at the superior lateral acetabulum and adjacent femoral head. There is no underlying bone marrow edema. There is degeneration and fraying of the labrum. There is a physiologic amount of fluid in the hip joint. The remainder of the visualized ligaments and tendons about the hip are intact. There is no evidence to suggest greater trochanteric bursitis. The visualized muscles are normal in size, signal intensity and morphology. The visualized neurovascular bundles are intact. Impression: There is marked bone marrow edema in the pubic symphysis slightly more pronounced on the right with abnormal adjacent soft tissue edema. No focal fluid collection is seen. This could be due to osteomyelitis in the appropriate clinical setting. Signed by: Dr. Zac Cornell M.D. on 12/09/2018 3:09 PM
[2018-12-09 16:00] VITALS: BP 130/64
--- NOTE | 2018-12-09 16:41 | Diagnostic Imaging Report ---
MRI SPINE LUMBAR WOW HISTORY: Severe lumbar spine pain COMPARISON: CT of the abdomen and pelvis 10/27/2018; MRI of the lumbar spine 10/27/2018 TECHNIQUE: Multiplanar, multisequence MRI of the lumbar spine was performed without and with intravenous contrast. 15 mL of MultiHance were administered. DISCUSSION: Number of non-rib bearing lumbar vertebral bodies: 5. Alignment: Normal lordosis. No scoliosis. Bone: No definite evidence for vertebral fractures, infection or neoplasm. Mild enhancement in the right sacral ala is partially visualized. Conus medullaris: Normal, ends at L1-L2 Cauda equina: No masses or arachnoiditis. Posterior paraspinal muscles: Well preserved. No signal abnormalities. Soft tissues: T2 hyperintense right renal cyst is present. Mild multilevel disc degeneration is present. There are posterior annular fissures at L3-L4 and L4-L5. T12-L1: Patent canal and foramina. L1-L2: Disc bulge without significant canal or foraminal stenosis. L2-L3: Disc bulge without significant canal or foraminal stenosis. L3-L4: Mild canal stenosis due to disc bulge and ligamentum flavum thickening. Mild right foraminal stenosis due to disc bulge and facet arthrosis. No significant left foraminal stenosis. L4-L5: Mild canal stenosis due to disc bulge and ligamentum flavum thickening. Mild bilateral foraminal stenoses due to disc bulge and facet arthrosis. L5-S1: Disc bulge without significant canal or foraminal stenosis. IMPRESSION: 1. Partially visualized, nonspecific mild enhancement in the right sacral ala may be due to inflammation. 2. Otherwise, no acute osseous abnormality. 3. Mild multilevel disc degeneration. 4. Mild degenerative canal stenoses at L3-L4 and L4-L5. 5. Mild right L3-L4 and bilateral L4-L5 degenerative foraminal stenoses. Signed by: Dr. Gabriel Bryan M.D. on 12/09/2018 4:37 PM
[2018-12-09] MEDS: PREGABALIN 75 MG CAP PO SCH (17:00)
[2018-12-09] MEDS ORDERED: PREGABALIN 50 MG CAP PO SCH (17:00)
--- NOTE | 2018-12-09 17:33 | Progress Note ---
DATE: 12/09/2018 Medicine Progress Note SUBJECTIVE: The patient still complains of pain in hip region. His MRI was noted and shows signals consistent with osteomyelitis that he has had on prior MRIs. This will be lagging as it will take several months to a year until the signal goes away, until bone healing occurs. LABORATORY DATA: Lab findings show white count 6.8, hemoglobin 11, hematocrit 35, platelets of 154. Chemistry; sodium 137, potassium 3.5, chloride 106 bicarb 25, anion gap of 9.5, BUN 15, creatinine 0.79, glucose 82, calcium is 8.9. CRP is 15%. His sed rate was found to be 23. MICROBIOLOGY: Blood and urine cultures revealed no growth. IMAGING STUDIES: Hip x-rays showing marked bone, marrow edema in the pubic symphysis slightly more pronounced on the right with abnormal adjacent soft tissue edema. No focal fluid collection is seen. PHYSICAL EXAMINATION: VITAL SIGNS: Temperature 96.6, pulse 61, respiratory rate is 18, blood pressure 132/60, pulse ox 96% on room air. GENERAL: Not in acute distress. Alert and oriented x3. Cooperative on examination. HEENT: Head is normocephalic and atraumatic. Eyes; pupils are equal, round, and reactive to light bilaterally. Extraocular muscles are intact bilaterally. Throat, no evidence of erythema or exudates in the posterior pharynx. Has poor dentition. NECK: Supple. Good range of motion. PULMONARY: Clear to auscultation bilaterally. No wheezing, no rales, no rhonchi, no crackles appreciated. CARDIOVASCULAR: Positive S1, S2. No murmurs, rubs, or gallops appreciated. ABDOMEN: Soft, nondistended, and nontender to palpation. Bowel sounds present. MUSCULOSKELETAL: Strength is 5/5 throughout. No evidence of any muscle deficits on examination. No weakness appreciated. NEUROLOGICAL: Cranial nerves II through XII grossly intact. No evidence of any neurological deficits on exam. SKIN: Intact. Warm to touch. Good cap refill. PSYCHIATRIC: Normal affect and mood. EXTREMITIES: No edema. Good range of motion throughout. IMPRESSION: 1. Pubic symphysis, septic arthritis, osteomyelitis, now improving. 2. Chronic pain syndrome. 3. Hypertension. 4. History of benign prostatic hypertrophy. PLAN: At this time, MRI of the pelvis reviewed between me an ID physician and the MRI seems to be consistent with prior osteomyelitis and he is improving based on sed rate and CRP. This was explained to the family at bedside and they verbalized understanding. We will continue with IV now, increase the mg p.o. b.i.d. and change Solu-Medrol to 40 mg IV b.i.d. x4 doses. Discontinue oral prednisone for now. Continue with pain control. We will get a consult with Neurology to help assist in this case. We will continue same plan of care and education. MD JOANIE Her/PAWAN /[id number]
--- NOTE | 2018-12-09 18:08 | Progress Note ---
DATE: SUBJECTIVE: Mr. Garcia continued to have pain. He cannot even stand. The pain is on the right side. The patient is also very leery of using drugs and pain medication. The patient at this time he was doing well till recently where about two weeks ago he was noted to have severe pain in his right hip. The patient was on prednisone and we are weaning it down and encourage PT/OT. However, he had some side effects when the steroid dose was high, so I had to bring it down to 20 and then 15, therefore, I brought it down, he was noted to have worsening pain. No fever. No chills. He is very concerned that he may have infection. So, the patient was brought in to be admitted as mentioned above. He had an MRI. The MRI came back today and it showed there is marked bone marrow edema and the pubic symphysis is slightly more pronounced on the right with normal soft tissue edema. There is no focal fluid. This could be osteo. He also had MRI of both hips, it showed there is no fracture, no evidence of avascular necrosis. LABORATORY DATA: His urine cultures preliminary shows there is still growing. His white count is 7.25, hemoglobin 11.6, sodium 138, potassium 3.9, creatinine 0.9. The patient is currently on meropenem, prednisone 20. He is on Lyrica and Cozaar. PHYSICAL EXAMINATION: GENERAL: He is currently alert, oriented, does not seem to be in acute distress. VITALS STABLE: Stable, afebrile. HEENT: Not icteric, normocephalic. NECK: Supple. No JVD. No palpable cardiomegaly. CHEST: Clear bilaterally. HEART: S1, S2. No S3, S4, or murmur. ABDOMEN: Soft. Bowel sounds present. No tenderness. No hepatosplenomegaly. EXTREMITIES: No edema. SKIN: There is no other rash. REVIEW OF SYSTEMS: Otherwise, HEENT: Negative. PULMONARY: Negative. CARDIAC: Negative. : Negative. GI: Negative. SKIN: There is no other rash as mentioned above. IMPRESSION: 1. Hip pain so far there is no evidence that the patient infection is getting worse muscular versus arthritis. We will get sed rate, C-reactive protein, it showed there is improvement. We will obtain rheumatoid factor, JAI. 2. 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 3. Debility. He cannot walk. We will ask PT, OT and rehab evaluation. Pain on walking. We will ask a Neuro evaluation. Discussed with Internal Medicine. We will follow. MD TERI Crews/PAWAN /[id number]
--- NOTE | 2018-12-09 19:11 | NUR ---
PT RESTING ON BED BED SIDE REPORT GIVEN TO ONCOMING NURSE
[2018-12-09 19:58] VITALS: BP 147/76
[2018-12-09 20:00] VITALS: BP 147/76
[2018-12-09] MEDS: TAMSULOSIN HCL 0.4 MG CAP PO SCH (21:25)
[2018-12-09] MEDS: ATORVASTATIN 20 MG TAB PO SCH (21:25)
[2018-12-09] MEDS: METHYLPREDNISOLONE SOD SUCC 40 MG/ML VIAL 1ML IV SCH (21:34)
[2018-12-09] MEDS: TRAZODONE HCL 50 MG TAB PO PRN (21:49)
--- NOTE | 2018-12-09 21:50 | NUR ---
PATIENT ASSISTED WITH ADLS, NO ACUTE DISTRESS OBSERVED AND HE DENIES PAIN. MEDICATED WITH TRAZODONE FOR SLEEP REQUESTED, CALL LIGHT WITHIN EASY REACH, HIS IS AT THE BED SIDE. PATIENT INSIST THAT HE DOES NOT WANT VITAL SIGNS TAKEN AT MIDNIGHT.
[2018-12-10] MEDS: MEROPENEM 1GM 100 ML IV SCH ×3 (02:16→22:10)
--- NOTE | 2018-12-10 02:40 | NUR ---
PATIENT CONDITION STABLE WITHOUT ACUTE DISTRESS, HE DENIES PAIN AT THIS TIME. HE HAS JUST GOT BACK FROM THE RESTROOM, CALL LIGHT WITHIN EASY REACH, HE'S INSTRUCTED TO CALL FOR ASSISTANCE NEEDED.
[2018-12-10 04:52] VITALS: BP 132/64
[2018-12-10 07:43] VITALS: BP 155/90
[2018-12-10] MEDS: PREGABALIN 75 MG CAP PO SCH ×2 (09:00→16:05)
[2018-12-10] MEDS: METHYLPREDNISOLONE SOD SUCC 40 MG/ML VIAL 1ML IV SCH ×2 (09:00→20:49)
[2018-12-10] MEDS: LOSARTAN POTASSIUM 25 MG TAB PO SCH (09:00)
[2018-12-10 11:00] VITALS: BP 155/90
[2018-12-10 11:49] VITALS: BP 155/71
--- NOTE | 2018-12-10 12:00 | NUR ---
RECEIVED REPORT FROM NURSE CALLOWAY, PATIENT IS SITTING UP IN CHAIR IN STABLE CONDITION. FAMILY MEMBER AT BEDSIDE. CALL LIGHT WITHIN REACH.
--- NOTE | 2018-12-10 12:00 | NUR ---
REPORT GIVEN TO HOPE RN TO CONTINUING CARE
[2018-12-10] MEDS ORDERED: BENZONATATE 100 MG CAP PO PRN (15:45)
[2018-12-10] MEDS ORDERED: GUAIFENESIN 600 MG TAB PO PRN (15:45)
--- NOTE | 2018-12-10 16:03 | NUR ---
CASE MANAGEMENT INITIAL ASSESSMENT Assignment Desk Editor to bedside to discuss plan of care with patient/family. CM/SW role and care transitions discussed. Anticipated discharge plan discussed along with duration of care. CM/SW discussed patients right to make decisions in care. CM/SW work hours given. Patient lives: Admit/Transfer: ER Hospital/ER visits since last admit:0 POA/Emergency contact: ELOISA ZARAGOZA [phone] Current/Previous Home Health: NONE PCP/Follow-up Care: DR KRISTA ROPER Current/Previous DME: NONE Medications (referring to index hospitalization or the first time you were in the hospital) a. Were changes made in your medications when you were in the hospital on [date of index hospitalization]? Yes No Not sure Explain: Note: If no or not sure, please skip to question d b. Did you understand the changes? Yes No Explain: c. Were you able to obtain your new medications right away? Yes No n/a SNF only Explain: d. Were you able to take your medications like the doctor wanted you to? TAKING MEDS PER PCP'S INSTRUCTIONS e. Did the hospital give you an accurate, easy to understand list of medications when you left? Yes No n/a SNF only Explain: Scale of 1-10 how comfortable does patient feel with disease management in outpatient setting? 10 Other Services: NONE Employment Status: RETIRED Areas of Concerns: Referral Needs: TO BE DETERMINED Education Needs: FOLLOW UP APPTS IMM/YOO given and signed (if applicable): IMM ON ADMIT Goal for discharge:DC HOME WITH CM/SW left business card at the bedside with contact information. Name and number was also written on the patients whiteboard. Patient verbalized understanding of discussion. CM will follow-up with ongoing discharge and transition of care needs.
[2018-12-10] MEDS: GUAIFENESIN/CODEINE 10 ML CUP PO PRN (16:05)
[2018-12-10 16:19] VITALS: BP 154/79
--- NOTE | 2018-12-10 18:53 | Progress Note ---
DATE: 12/10/2018 SUBJECTIVE: The patient still reports having some pain in the hip area. He reports also night sweats likely from the steroids. OBJECTIVE: VITAL SIGNS: Temperature is 96.9, pulse 66, respiratory rate is 18, blood pressure is 155/71, and pulse ox 98% on room air. GENERAL: Not in acute distress, alert and oriented x3. Cooperative on examination. HEENT: Head is normocephalic, atraumatic. Eyes, pupils are equal, round, and reactive to light bilaterally. Extraocular motions are intact. NECK: Supple. Good range of motion. Throat, no evidence of erythema or exudate in the posterior pharynx. Has poor dentition. PULMONARY: Clear to auscultation bilaterally. No wheezing, rales, or rhonchi. No crackles appreciated. CARDIOVASCULAR: Positive S1, S2. No murmurs, rubs, or gallops. ABDOMEN: Soft, nondistended, nontender to palpation. Bowel sounds present. MUSCULOSKELETAL: Strength is 5/5 throughout. No evidence of any muscle deficits on examination. No weakness appreciated. NEUROLOGIC: Cranial nerves II through XII grossly intact. No evidence of any neurological deficits on exam. SKIN: Intact. Warm to touch. Good cap refill. PSYCHIATRIC: Normal affect and mood. EXTREMITIES: No edema. Good range of motion throughout. LABORATORY DATA: None today. CBC, none. Chemistry, none. All the factors are pending. IMPRESSION: 1. Pubic symphysis septic arthritis with underlying osteomyelitis, improving. 2. Chronic pain syndrome. 3. Hypertension. 4. History of BPH. PLAN: At this time, MRI of the pelvis, I reviewed with the Infectious Disease doctor and it seems to be consistent with a prior osteomyelitis, but nothing new. His sed rate and CRP has improved tremendously. He does report having some night sweats with the steroids. I verified that with pharmacy and this is a true side effect with night sweats. We discussed with him, he wants to discontinue it. He reports a few things okay, and we will continue with his Solu-Medrol 40 mg IV b.i.d. Continue with pain control. Continue working with PT and OT everyday. Neurology was consulted for assistance . MD JOANIE Her/PAWAN /[id number]
--- NOTE | 2018-12-10 19:32 | NUR ---
REPORT GIVEN TO ONCOMING NURSE, PATIENT IS RESTING IN BED. NO ACUTE DISTRESS NOTED. FAMILY AT BEDSIDE. CALL LIGHT WITHIN REACH. BED IN THE LOWEST POSITION.
[2018-12-10 20:13] VITALS: BP 139/75
--- NOTE | 2018-12-10 20:15 | NUR ---
PATIENT SITTING AT THE SIDE OF THE BED, NO DISTRESS OBSERVED. HE DENIES PAIN, FAMILY MEMBERS VISITING WITH THE PATIENT. HE'S INSTRUCTED TO CALL FOR ASSISTANCE NEEDED.
[2018-12-10] MEDS: TRAZODONE HCL 50 MG TAB PO SCH (20:49)
[2018-12-10] MEDS: TAMSULOSIN HCL 0.4 MG CAP PO SCH (20:49)
[2018-12-10] MEDS: ATORVASTATIN 20 MG TAB PO SCH (20:49)
[2018-12-11] VITALS (7 sets, daily range): BP systolic 121–157; BP diastolic 64–86
--- NOTE | 2018-12-11 00:30 | NUR ---
PATIENT IS SOUNDLY ASLEEP, HE'S EASY TO AROUSE. NO DISTRESS OBSERVED, CALL LIGHT WITHIN EASY REACH.
--- NOTE | 2018-12-11 04:05 | NUR ---
PATIENT RESTING IN BED WITHOUT RESPIRATORY DISTRESS, HE DENIES PAIN. CALL LIGHT WITHIN EASY REACH REACH, HIS IS AT THE BEDSIDE.
[2018-12-11] MEDS: MEROPENEM 1GM 100 ML IV SCH ×3 (05:30→22:33)
[2018-12-11 06:53] LABS: ANION GAP 10.9 mmol/L (8-16); BLOOD UREA NITROGEN 17 mg/dL (7-26); BUN/CREATININE RATIO 20 (6-25); CALCIUM 9.4 mg/dL (8.4-10.2); CARBON DIOXIDE 25 mmol/L (22-29); CHLORIDE 107 mmol/L (98-107); CREATININE, SERUM 0.84 mg/dL (0.72-1.25); EST GLOMERULAR FILTRATION RATE > 60 ML/MIN (60-); GLUCOSE 132 mg/dL (74-118); POTASSIUM 3.9 mmol/L (3.5-5.1); SODIUM 139 mmol/L (136-145)
--- NOTE | 2018-12-11 06:54 | NUR ---
RECEIVED PATIENT RESTING IN BED. RESPIRATIONS EVEN AND UNLABORED, NO ACUTE DISTRESS NOTED. FAMILY AT BEDSIDE. CALL LIGHT WITHIN REACH. BED IN THE LOWEST POSITION. BED ALARM ON.
[2018-12-11 07:01] LABS: BASOPHILS % 0.1 % (0.0-1.0); HEMATOCRIT 33.4 % (38.2-49.6); HEMOGLOBIN 11.2 g/dL (14.0-18.0); LYMPHOCYTES % 12.8 % (18.0-39.1); MEAN CORPUSCULAR HEMOGLOBIN 29.2 pg (28-32); MEAN CORPUSCULAR HGB CONC 33.5 g/dL (31-35); MONOCYTES # (AUTO) 0.2 (0.2-0.8); MONOCYTES % 2.8 % (4.4-11.3); NEUTROPHILS # (AUTO) 6.4 (2.1-6.9); PLATELET COUNT 88 x10e3/uL (140-360); RED BLOOD COUNT 3.84 x10e6/uL (4.3-5.7); RED CELL DISTRIBUTION WIDTH 13.8 % (11.7-14.4)
[2018-12-11] MEDS ORDERED: POLYETHYLENE GLYCOL 3350 17 GM PACK PO PRN (07:45)
[2018-12-11] MEDS ORDERED: DOCUSATE SODIUM 100 MG CAP PO PRN (07:45)
[2018-12-11] MEDS: GUAIFENESIN/CODEINE 10 ML CUP PO PRN ×2 (09:00→17:03)
[2018-12-11] MEDS: LOSARTAN POTASSIUM 25 MG TAB PO SCH (09:02)
[2018-12-11] MEDS: METHYLPREDNISOLONE SOD SUCC 40 MG/ML VIAL 1ML IV SCH (09:02)
[2018-12-11] MEDS: PREGABALIN 75 MG CAP PO SCH ×2 (09:02→16:28)
[2018-12-11] MEDS: LIDOCAINE 5% PATCH TP SCH (12:10)
[2018-12-11] MEDS: HYDROMORPHONE 2MG/ML 2 MG/ML ML IV PRN ×2 (12:10→20:54)
[2018-12-11] MEDS ORDERED: OXYCODONE HCL IR 5 MG TAB PO PRN (13:30)
[2018-12-11] MEDS ORDERED: HYDROMORPHONE 2MG/ML 2 MG/ML ML IV PRN (14:15)
[2018-12-11] MEDS ORDERED: ACETAMINOPHEN/CODEINE 300MG - 30MG TAB PO NR (14:30)
--- NOTE | 2018-12-11 15:55 | NUR ---
PER PATIENT TYLENOL #3 DID NOT WORK FOR HIM. NOTIFIED DR. ENRIQUEZ, ONE TIME DOSE OF DILAUDID 1MG ORDERED.
[2018-12-11] MEDS ORDERED: HYDROMORPHONE 2MG/ML 2 MG/ML ML IV NR (16:15)
--- NOTE | 2018-12-11 16:16 | Progress Note ---
DATE: 12/11/2018 Time spent almost 1 hour. SUBJECTIVE: The patient was visited several times during the day. Discussed the patient with his attending, his , his nursing, also his family. The patient is overall feeling better. The issue now he is having pain in his back. There is no fever, no chills, no nausea, no vomiting, no diarrhea. No urgency, no frequency. No skin rash. The pain now is in his back. When he first came, he is having pain on the right hip. Discussed the case with his family, and his daughter, who is an orthopedic doctor. Also discussed with his . OBJECTIVE: GENERAL: He is currently alert, oriented, does not seem to be in acute distress. VITAL SIGNS: Stable, currently afebrile. HEENT: Normocephalic, not icteric. NECK: Supple. CHEST: Clear bilateral. HEART: S1, S2. No S3, S4, or murmur. ABDOMEN: Soft. Bowel sounds present. No tenderness. EXTREMITIES: No edema. SKIN: There is no rash. JOINTS: There is no erythema or edema. LABS: All reviewed since admission. Sodium 139, potassium 3.9, glucose of 132, C-reactive protein 15. I have reviewed the MRI personally, reviewed with the radiologist. IMPRESSION: 1. 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 I think he is improving and sedimentation rate is coming down. His C-reactive protein coming down. His sedimentation rate is 23, CRP 15. Cultures are negative. There is no acute worsening in the MRI. I discussed with the patient that this is an MRI abnormality, will last for long time up to one year. 2. Pain in the hip and in the back. MRI did not reveal any other medical abnormality. Neurology saw the patient again and I appreciate her input. Also, the patient was seen by rehab. I think the issue is probably arthritis from disuse and muscle weakness. I think we need to control his pain. The family are very hesitant to give him any narcotics. We are going to put him on Tylenol No. 3 one p.o. q.6 hours p.r.n. Continue with the Lyrica. Continue with the prednisone at the present time. Continue with PT/OT. 3. We will monitor him daily. 4. History of prostatitis, history of urinary tract infection. I think he is doing good. Repeat cultures are negative. Time spent 60 minutes. MD TERI Crews/PAWAN /[id number]
[2018-12-11] MEDS ORDERED: ACETAMINOPHEN/CODEINE 300MG - 30MG TAB PO PRN (18:00)
--- NOTE | 2018-12-11 18:07 | Progress Note ---
DATE: 12/11/2018 Medicine Progress Note SUBJECTIVE: The patient is doing well today with no complaints. We are arranging for home wound VAC and possibly IV antibiotics. Case Management is working on that as well. OBJECTIVE: VITAL SIGNS: Temperature is 97.1, pulse 61, respiratory rate is 18, blood pressure is 141/68, and pulse ox 96% on room air. GENERAL: Not in acute distress. Alert and oriented x3. Cooperative on examination. HEENT: Head is normocephalic and atraumatic. Eyes; pupils are equal, round, and reactive to light bilaterally. Extraocular movements are intact bilaterally. NECK: Supple. Good range of motion. MUSCULOSKELETAL: No evidence of any muscle deficits on examination. No weakness appreciated. NEUROLOGICAL: Cranial nerves II through XII grossly intact. No evidence of any neurological deficits on exam. SKIN: Intact. Warm to touch. Good cap refill. PSYCHIATRIC: Normal affect and mood. EXTREMITIES: No edema. Good range of motion throughout. LABS: White count 5.1, hemoglobin 8.8, hematocrit 27, and platelet is 156. Chemistries, none. IMPRESSION: 1. Left thigh pain, status post incision and drainage, now with a wound VAC. 2. Type 2 diabetes. 3. Morbid obesity. 4. Medical noncompliance with medically debilitation. PLAN: At this time, he [facility] on Wednesday afternoon and it was difficult for us to arrange antibiotics, wound care, and home PT all on Wednesday. At this time, Case Management is aware. They are working on wound VAC for home. Continue with PT and OT and possibly what may need IV antibiotics on discharge, but we will need to discuss this with Infectious Disease. Continue with same plan of care. MD JOANIE Her/HAZELL /[id number]
--- NOTE | 2018-12-11 18:37 | Progress Note ---
DATE: 12/11/2018 Medicine Progress Note SUBJECTIVE: The patient is currently doing well, still complains of severe back pain. MRI shows inflammation around the sacrum. The patient is able to ambulate, but still has some chronic lower back pain. OBJECTIVE: VITAL SIGNS: Temperature is 96.9, pulse 60, respiratory rate is 18, blood pressure 140/80, pulse ox 99% on room air. GENERAL: Not in acute distress. Alert and oriented x3. Cooperative on examination. HEENT: Head is normocephalic and atraumatic. Eyes; pupils are equal, round, and reactive to light bilaterally. Extraocular movements are intact bilaterally. Throat, no evidence of erythema or exudates in the posterior pharynx. Has poor dentition. NECK: Supple. Good range of motion. PULMONARY: Clear to auscultation bilaterally. No wheezing, no rales, no rhonchi, no crackles appreciated. CARDIOVASCULAR: Positive S1, S2. No murmurs, rubs, or gallops appreciated. ABDOMEN: Soft, nondistended, and nontender to palpation. Bowel sounds present. MUSCULOSKELETAL: Strength is 5/5 throughout. No evidence of any muscle deficits on examination. No weakness appreciated. NEUROLOGICAL: Cranial nerves II through XII grossly intact. No evidence of any neurological deficits on exam. SKIN: Intact. Warm to touch. Good cap refill. PSYCHIATRIC: Normal affect and mood. EXTREMITIES: No edema. Good range of motion throughout. LABORATORY DATA: Show white count 7.7, hemoglobin , hematocrit 33, and platelets of 88. Chemistry; sodium 139, potassium 3.9, chloride , bicarb 24, anion gap of 10, BUN 17, creatinine 0.84, glucose is 132, calcium is 9.4. MICROBIOLOGY: None. IMAGING STUDIES: Reviewed. IMPRESSION: 1. 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 2. Sacral inflammation, likely is an underlying pain. 3. Chronic pain syndrome. 4. Hypertension. 5. Benign prostatic hypertrophy. PLAN: Imaging studies were reviewed with Infectious Disease. There is no evidence of any fracture, but does show some canal stenosis and inflammation around the sacral region. This is probably likely due to his underlying pain. We are going to continue with steroids for now, switch to oral steroids. We will adjust his pain medications accordingly and try to convert into oral pain medications in order for him to go home. Lidocaine patch has been added. Continue work with PT and OT daily. MD JOANIE Her/MODL /[id number]
--- NOTE | 2018-12-11 19:00 | NUR ---
PATIENT IN BED. CALL LIGHT WITHIN REACH. FAMILY AT BEDSIDE.
--- NOTE | 2018-12-11 19:27 | Consultation ---
DATE OF CONSULTATION: 12/11/2018 I would like to thank Dr. Millard for asking to see Mr. Garcia in consultation. REASON FOR CONSULTATION: 1. Right hip pain. 2. Osteomyelitis of the pubic symphysis. 3. Prostate pubic symphysis fistula. 4. Chronic antibiotic usage. HISTORY: Mr. Garcia is a 73-year-old male known to me from his previous stay here over at [facility], who has been seen by Urology for prostate fistula, had undergone previous procedures and was diagnosed with prostate infection with osteomyelitis of the pelvic bone. The patient has been on chronic antibiotics for right now with the hope that the fistula would resolve. He started developing pain to the right hip/sacral area. He has been having antalgic type of gait ever since his back pain started. The patient was on high-dose prednisone, but started having some side effects with it and also anxiety as well as some night sweats and so was started to be weaned down. I am being asked to evaluate for rehab needs. His pain has actually shifted from the anterior pubic symphysis area down to the right hip area. PAST MEDICAL HISTORY: BPH. The patient with prostate pubic symphysis fistula. PAST SURGICAL HISTORY: Includes TURP x2. ALLERGIES: NO KNOWN DRUG ALLERGIES. HABITS: Nonsmoker, nondrinker. SOCIAL HISTORY: Lives with his in one-story home. Pretty much ambulatory, but his gait is not normal. musculature and because of the pain he is experiencing. LABS: Unable to access at this time. IMAGING: MRI of the pelvic area showed a partially visualized nonspecific enhancement of the right sacral ala may be due to inflammation. Otherwise, no acute osseous abnormality. Multilevel degenerative disk disease. Mild degenerative canal stenosis at L3-4 and L4-5 and mild right L3-4 and bilateral L4-5 degenerative foraminal stenosis. PHYSICAL EXAMINATION: GENERAL: The patient is awake and alert, lying in bed and ambulating definitely with antalgic gait, favoring his right leg/hip area. EYES: Gaze is conjugate. ORAL: Tongue is midline. NECK: Supple. He is oriented x3. HEART: Regular. LUNGS: Clear. ABDOMEN: Nondistended. Palpation of the sacral area shows that there is some pain on the right side, not near the SI joint, but closer to the upper sacral area to the musculature of the right hip. No pain on the left side. Range of motion to the right hip was pretty much nonpainful. Hip flexion, external rotation did not cause any pain or reproduce the pain that was reproduced by palpation. Straight leg raise negative for sciatica. No new numbness or tingling to his arms or legs. Manual muscle testing demonstrated pretty much 4+ to 5/5 in the upper extremities. In lower extremities, strength in his legs are actually pretty good. Hip flexion and extension, although was minimally tender in the supine position demonstrated 4+ to 5/5 strength throughout. Knee extension was 5/5 strength. Ankle dorsiflexion, plantar flexion is 5/5 strength. Left leg was 5/5 strength as well. Clonus negative bilaterally. I did speak with the radiologist micro paleontologist to try to have the previous MRI and current MRI compared. He did confirm that there was some inflammation in the right sacral ala area, but also he noted that there were characteristics of bilateral insufficiency fracture to the sacral ala. Also, he could not really comment fully on the fistula, but he said basically is unchanged compared to the one performed two months ago and he did repeat aforementioned bone marrow edema in the pubic symphysis, although was not sure if it is more inflamed on the right side compared to left side or versus was more inflamed compared to the previous MRI. He will have an official reading done by his colleague tomorrow. IMPRESSION: 1. Pubic osteomyelitis. 2. 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 3. Prostate fistula. 4. Antalgic gait. PLAN: Discussed results with his son-in-law, family as well as Mr. Garcia. We had discussed what was going on, may need to get an Ortho evaluation with regard to the insufficiency fractures. He is also on low doses of steroid. We will need to see how he responds and the next level of care. In the meantime, we have PT work on some lumbar stabilization exercises, as well as continue Lidoderm patch to the back to see what will help with the pain as there is some evidence of lumbar spine disease. Discussed with patient and family at length. Precautions falls. Thank you once again for allowing me to participate in care of this pleasant, but unfortunate patient. Channing Jaramillo DO RPL/PAWAN /[id number]
--- NOTE | 2018-12-11 19:41 | NUR ---
REPORT GIVEN TO ONCOMING NURSE. PATIENT IS RESTING IN BED, NO ACUTE DISTRESS NOTED. NO S/S OF PAIN NOTED. FAMILY AT BEDSIDE. CALL LIGHT WITHIN REACH. BED IN THE LOWEST POSITION.
[2018-12-11] MEDS: ATORVASTATIN 20 MG TAB PO SCH (20:53)
[2018-12-11] MEDS: TRAZODONE HCL 50 MG TAB PO SCH (20:53)
[2018-12-11] MEDS: TAMSULOSIN HCL 0.4 MG CAP PO SCH (20:53)
[2018-12-12 06:30] VITALS: BP 156/71
[2018-12-12] MEDS ORDERED: SODIUM CHLORIDE 0.9% 250ML 250 ML ONE (06:32)
[2018-12-12] MEDS: MEROPENEM 1GM 100 ML IV SCH ×3 (06:36→22:07)
[2018-12-12 06:41] LABS: BASOPHILS % 0.2 % (0.0-1.0); EOSINOPHILS # (AUTO) 0.1 (0.0-0.4); EOSINOPHILS % 0.5 % (0.0-6.0); HEMATOCRIT 38.5 % (38.2-49.6); LYMPHOCYTES # (AUTO) 2.7 (1.0-3.2); LYMPHOCYTES % 21.1 % (18.0-39.1); MEAN CORPUSCULAR HEMOGLOBIN 29.3 pg (28-32); MEAN CORPUSCULAR HGB CONC 33.8 g/dL (31-35); MEAN CORPUSCULAR VOLUME 86.7 fL (81-99); MONOCYTES # (AUTO) 0.9 (0.2-0.8); MONOCYTES % 6.8 % (4.4-11.3); NEUTROPHILS % 69.4 % (38.7-80.0); PLATELET COUNT 182 x10e3/uL (140-360); RED BLOOD COUNT 4.44 x10e6/uL (4.3-5.7); RED CELL DISTRIBUTION WIDTH 13.9 % (11.7-14.4)
[2018-12-12 06:58] LABS: ANION GAP 10.2 mmol/L (8-16); BLOOD UREA NITROGEN 18 mg/dL (7-26); BUN/CREATININE RATIO 22 (6-25); CALCIUM 9.6 mg/dL (8.4-10.2); CARBON DIOXIDE 28 mmol/L (22-29); CHLORIDE 103 mmol/L (98-107); CREATININE, SERUM 0.83 mg/dL (0.72-1.25); EST GLOMERULAR FILTRATION RATE > 60 ML/MIN (60-); GLUCOSE 77 mg/dL (74-118); POTASSIUM 4.2 mmol/L (3.5-5.1); SODIUM 137 mmol/L (136-145)
[2018-12-12 08:27] VITALS: BP 137/75
[2018-12-12 08:30] VITALS: BP 137/75
[2018-12-12] MEDS: HYDROMORPHONE 2MG/ML 2 MG/ML ML IV PRN (08:30)
[2018-12-12] MEDS: LOSARTAN POTASSIUM 25 MG TAB PO SCH ×2 (08:32→22:08)
[2018-12-12] MEDS: PREDNISONE 20 MG TAB PO SCH (08:32)
[2018-12-12] MEDS: PREGABALIN 75 MG CAP PO SCH ×2 (08:32→17:10)
[2018-12-12] MEDS: LIDOCAINE 5% PATCH TP SCH (08:33)
[2018-12-12] MEDS ORDERED: PREDNISONE 20 MG TAB PO SCH (09:00)
--- NOTE | 2018-12-12 10:32 | NUR ---
IMM letter delivered and explained to pt. He verbalized understanding. Signed copy placed in chart. Copy to pt.
[2018-12-12 12:06] VITALS: BP 125/60
[2018-12-12] MEDS ORDERED: ONDANSETRON HCL 4 MG ORAL DISINTEGRATING TAB PO PRN (15:15)
--- NOTE | 2018-12-12 16:30 | NUR ---
Patient refused 1600 vital signs
[2018-12-12] MEDS ORDERED: KETOROLAC TROMETHAMINE 30 MG/ML VIAL IV STA (17:51)
[2018-12-12] MEDS ORDERED: HYDROMORPHONE 1MG/1ML INJ IV PRN (18:00)
[2018-12-12] MEDS ORDERED: BACLOFEN 10 MG TAB PO PRN (18:00)
[2018-12-12 20:00] VITALS: BP 125/67
[2018-12-12 21:16] VITALS: BP 125/67
[2018-12-12] MEDS: TAMSULOSIN HCL 0.4 MG CAP PO SCH (22:07)
[2018-12-12] MEDS: ATORVASTATIN 20 MG TAB PO SCH (22:07)
[2018-12-12] MEDS: TRAZODONE HCL 50 MG TAB PO SCH (22:07)
[2018-12-12] MEDS: GUAIFENESIN/CODEINE 10 ML CUP PO PRN (22:23)
--- NOTE | 2018-12-12 22:28 | Progress Note ---
DATE: SUBJECTIVE: The patient is doing well. He reports still having some pain in the sacral region. He is on steroids. He is on Lyrica. He is also on pain control with Dilaudid. He also has lidocaine patch. Baclofen has been ordered as well. We will also consult with Pain Management. LABORATORY DATA: Labs show white count 13, hemoglobin 13, hematocrit 38.5, and platelets of 182. Chemistry; sodium 137, potassium 4.3 chloride 103, bicarb 28, anion gap of 10, BUN is 18, creatinine is 0.83, calcium is 9.6. PHYSICAL EXAMINATION: VITAL SIGNS: Temperature is 97.8, pulse 63, respiratory rate is 18, blood pressure is 125/60, pulse ox 95% on room air. GENERAL: Not in acute distress, oriented x3. Cooperative on examination. HEENT: Head is normocephalic and atraumatic. Eyes; pupils are equal, round, and reactive to light bilaterally. Extraocular movements are intact bilaterally. NECK: Supple. Good range of motion. Throat, no evidence of erythema or exudate in the posterior pharynx. Has poor dentition. PULMONARY: Clear to auscultation bilaterally. No wheezing, rales, or rhonchi. No crackles appreciated. CARDIOVASCULAR: Positive S1, S2. No murmurs, rubs, or gallops appreciated. ABDOMEN: Soft, nondistended, nontender to palpation. Bowel sounds present. MUSCULOSKELETAL: Strength is 5/5 throughout. No evidence of any muscle deficits on examination. No weakness appreciated. NEUROLOGIC: Cranial nerves II through XII grossly intact. No evidence of any neurological deficits on exam. SKIN: Intact. Warm to touch. Good cap refill. PSYCHIATRIC: Normal affect and mood. EXTREMITIES: No edema. Good range of motion throughout. IMPRESSION: 1. Pubic symphysis osteomyelitis, improving on IV antibiotics sacral pain with underlying inflammation, likely due to his chronic pain issues. 2. Chronic pain syndrome. 3. Hypertension. 4. Benign prostatic hyperplasia. PLAN: At this time, physical medicine rehab is working with the patient's pain issues as well as work with physical therapy. I will go ahead and consult with Pain Management in which he agreed to. I changed the Dilaudid frequency to q.4 hours p.r.n. I added baclofen 10 mg p.o. t.i.d. p.r.n. and also gave him a dose of Toradol 30 mg IV x1 to see if that would help with the pain. Continue to work with PT and OT. He also had lidocaine patches. Hopefully, we will see if he can be discharged him in the next 1-2 days if possible. MD JOANIE Her/PAWAN /[id number]
[2018-12-13 04:00] VITALS: BP 142/74
[2018-12-13] MEDS: MEROPENEM 1GM 100 ML IV SCH ×2 (05:49→13:40)
[2018-12-13] MEDS ORDERED: HYDROMORPHONE 2MG/ML 2 MG/ML ML IV PRN (06:00)
[2018-12-13] MEDS: GUAIFENESIN/CODEINE 10 ML CUP PO PRN ×2 (06:12→13:40)
[2018-12-13] MEDS ORDERED: KETOROLAC TROMETHAMINE 30 MG/ML VIAL IV STA ×2 (08:29→13:41)
[2018-12-13 08:37] VITALS: BP 139/74
[2018-12-13 09:00] VITALS: BP 139/74
[2018-12-13] MEDS: LOSARTAN POTASSIUM 25 MG TAB PO SCH (09:00)
[2018-12-13] MEDS: LIDOCAINE 5% PATCH TP SCH (09:00)
[2018-12-13] MEDS: PREDNISONE 20 MG TAB PO SCH (09:00)
[2018-12-13] MEDS: PREGABALIN 75 MG CAP PO SCH (09:00)
--- NOTE | 2018-12-13 11:09 | NUR ---
Patient is laying in bed awake. He denies needing anything and has no complaints at this time. Call light in reach
[2018-12-13 13:16] VITALS: BP 118/57
--- NOTE | 2018-12-13 14:21 | NUR ---
Nutrition Screen Note RD Recommendation for Physician: -Continue current diet as ordered Plan of Care: RD following, monitoring for tolerance and adequacy Nutrition reason for involvement: LOS Primary Diagnose(s): Pubic symphysis osteomyelitis PMH: Chronic hip and pelvic pain, osteomyelitis, pubic symphysis, hypertension, hyperlipidemia. Ht: 67in Wt: 182.5lb BMI: 28.6kg/m2 IBW: 148lb RD Assessment: (12/13) Chart reviewed. Labs and meds reviewed. 73yo M, who was admitted for worsening pelvic pain. Visited pt in the room. Pt reported not liking hospital foods and had family brought him foods every day. No GI complains noted. No complains of chewing or swallowing difficulty. No recent weight loss noted. Will continue to monitor and follow Current Diet: regular diet Malnutrition Evaluation (12/13/2018) The patient does not meet criteria for a specified degree of malnutrition at this time. Will re-evaluate at follow-up as appropriate. Diet Education Needs Assessment: Diet education not indicated, pt is on regular diet. Nutrition Care Level: low Signed: Annalise Castro, MS, RD, LD
[2018-12-13] MEDS ORDERED: PANTOPRAZOLE SOD 40 MG TABEC PO SCH (16:30)
[2018-12-13 16:32] VITALS: BP 127/76
--- NOTE | 2018-12-13 16:43 | NUR ---
Discharge instructions and prescriptions given to the patient, they verbalized understanding. Patient is leaving with PICC line in place bc he is continuing IV antibiotics as an outpatient
--- NOTE | 2018-12-14 04:24 | Discharge Summary ---
FINAL DISCHARGE DIAGNOSES: 1. Chronic lower back pain. 2. Pubic symphysis osteomyelitis on IV antibiotics with underlying sacral inflammation leading to chronic pain. 3. Chronic pain syndrome. 4. Hypertension. 5. Benign prostatic hypertrophy. CONSULTANTS: GI and Pain Management, Infectious Disease, Neurology, Physical Medicine and Rehab. VITAL SIGNS: Temperature 97.1, pulse 66, respiratory rate is 20, blood pressure is 127/76, and pulse ox 95% on room air. LABORATORY FINDINGS: Show white count was 13, hemoglobin 13, hematocrit 38.5, and platelets of 182. Chemistry; sodium 137, potassium 4.2, chloride 103, bicarb 28, anion gap of 10, BUN is 18, creatinine 0.83, glucose 77, calcium 9.6. Rheumatoid factor 10.7, anti-sertraline IgG 4. JAI was pending. MICROBIOLOGY: Urine culture is negative. IMAGING STUDIES: MRI of the lumbar spine pain shows partially visualized, nonspecific mid enhancement of the right sacral area, maybe due to inflammation. There is mild multilevel degenerative disc degeneration. Mild evidence of canal stenosis at L3-L4 and L4-L5. There is no evidence of any other abnormality seen. Hip MRI shows a marked bone marrow edema in the pubic symphysis, slightly more pronounced on the right with abnormal adjacent soft tissue edema. No focal fluid collection is seen. This could be due to osteomyelitis in appropriate clinical setting. HOSPITAL COURSE: This is a 73-year-old male with history of osteomyelitis of the pubic symphysis on IV antibiotics as an outpatient, comes in due to chronic pain, requiring pain control. The patient was admitted, ID, Physical Medicine and Rehab, Neurology, and Pain Management were consulted. Further imaging studies, MRI of the hip shows no evidence of any acute findings, but consistent with osteomyelitis that he is currently being treated for. MRI of the lumbar spine shows no acute processes seen, but does show some inflammation around the right sacral region, likely due to his underlying pain situation. While here, the patient was on pain control and IV antibiotics. Pain Management and Physical Medicine and Rehab were consulted. Neurology was consulted. No further neurological workup was needed. The patient maintained on pain control with much improvement. We have proceeded with IV Toradol and pain control with IV pain medications. The patient was ambulating well with no complaints. I discussed overall findings with the consultants and they agreed for discharge home. The patient was cleared for discharge by Neurology, Physical Medicine and Rehab, Pain Management as well as Infectious Disease. On discharge, the patient was back to normal baseline with no other complaints. On the day of discharge, vital signs stable, labs reviewed and stable. The patient seen, evaluated, examined thoroughly on the day of discharge. No other complaints. The patient verbalized understanding and agreed to plan of care. A followup appointment as an outpatient with primary care physician in 1 week and the cosmetic sales consultant as well above in about 2 weeks' time. He has an appointment to see Dr. Millard, ID, tomorrow, 12/14/2018, for further management and care. MEDICATIONS: See med reconciliation form. DISPOSITION: Home. CONDITION: Stable. DIET: Heart healthy. In the event of any worsening symptoms, the patient was advised to come back to the ED for further evaluation. Discharge summary took greater than 35 minutes. MD JOANIE Her/PAWAN /[id number]
== END 2018-12-13 16:46 | disposition home or self-care (01) | DRG 540 ==
LOC: MED/SURG2 10:54
PROVIDERS: ADMIT Internal Medicine; ATTEND Internal Medicine
DX: M86.68 Other chronic osteomyelitis, other site (principal); N39.0 Urinary tract infection, site not specified; M84.454A Pathological fracture, pelvis, initial encounter for fracture; I10 Essential (primary) hypertension; E78.5 Hyperlipidemia, unspecified; G89.4 Chronic pain syndrome; N40.0 Benign prostatic hyperplasia without lower urinary tract symptoms; R53.81 Other malaise; D72.829 Elevated white blood cell count, unspecified; N41.9 Inflammatory disease of prostate, unspecified; B96.89 Other specified bacterial agents as the cause of diseases classified elsewhere; Z16.35 Resistance to multiple antimicrobial drugs; R61 Generalized hyperhidrosis; T38.0X5A Adverse effect of glucocorticoids and synthetic analogues, initial encounter; Y92.230 Patient room in hospital as the place of occurrence of the external cause; M46.40 Discitis, unspecified, site unspecified; N42.89 Other specified disorders of prostate; R26.89 Other abnormalities of gait and mobility; Z83.3 Family history of diabetes mellitus; Z82.49 Family history of ischemic heart disease and other diseases of the circulatory system
CPT/HCPCS: 36415; 71045; 72158; 80048; 84145; 85025; 85651; 86039; 86140; 86200; 86431; 87086; 96367; 96376; 97139; J1885; J2920; J7050; J7512

== ENCOUNTER → 2018-12-26 | Outpatient (CLI) | payer MEDICARE, OTHER ==
[~2018-12-26] MED LIST changes: +ATORVASTATIN CA20 MG PO; +CARBINOXAMINE MA4 MG PO; +OXYCODONE HCL20 M1 PO; +PREDNISONE10 MG PO
--- NOTE | 2018-12-26 18:26 | Diagnostic Imaging Report ---
EXAM: Bone mineral density study 12/26/2018 2:09 PM INDICATION: ^AGE RELATED OSTEOPOROSIS COMPARISON: None FINDINGS: Evaluation of the left hip and lumbar spine was performed. The study is technically adequate. The patient's fracture risk is compared to an age-matched control. The patient denies prior surgery/fracture of the spine, hips or forearm. LEFT HIP * Femoral neck bone mineral density: 0.761 gm/cm2, T-score is -1.2, Z-score is 0.0. * Total bone mineral density: 0.902 gm/cm2, T-score is -0.9, Z-score is -0.1. 10 -year fracture risk per WHO Fracture Risk Assessment Tool (FRAX) for: Major osteoporotic fracture is 16% Hip fracture is 10% The above fracture probability is calculated for an untreated patient. Fracture probably may be lower if the patient has received treatment. All treatment decisions require clinical judgment and consideration of individual patient factors, including patient preferences, comorbidities, previous drug use and risk factors not captured in the FRAX model (e.g. frailty, falls, vitamin D deficiency, increased bone turnover, interval significant decline in BMD). LUMBAR SPINE * Total bone mineral density: 0.886 gm/cm2, T-score is -1.9, Z-score is -0.9. IMPRESSION: 1. LEFT HIP: Bone mineralization by WHO Classification is osteopenia, the fracture risk is medium. 2. LUMBAR SPINE: Bone mineralization by WHO Classification is osteopenia, the fracture risk is medium. Signed by: Dr. Kirk Antoine M.D. on 12/26/2018 6:22 PM
== END ==
LOC: DX 14:00
PROVIDERS: ATTEND Internal Medicine Infectious Disease
DX: M46.28 Osteomyelitis of vertebra, sacral and sacrococcygeal region (principal); M81.0 Age-related osteoporosis without current pathological fracture
CPT/HCPCS: 77080

== ENCOUNTER 2018-12-30 10:45 | Outpatient (RCR) | payer MEDICARE, OTHER ==
[2019-01-05] MEDS ORDERED: KETOROLAC TROME10 MG PO (17:00)
[2019-01-05] MEDS ORDERED: TYLENOL WITH C1 EACH PO (17:01)
[2019-01-05] MEDS ORDERED: DITROPAN XL5 MG PO (17:02)
== END 2019-01-06 ==
LOC: PT 10:45
PROVIDERS: ATTEND Internal Medicine Infectious Disease
DX: M46.28 Osteomyelitis of vertebra, sacral and sacrococcygeal region (principal); M54.5 Low back pain; M62.81 Muscle weakness (generalized); R26.2 Difficulty in walking, not elsewhere classified
CPT/HCPCS: 97139

== ENCOUNTER 2019-01-02 02:09 | Inpatient (IN) | payer MEDICARE, OTHER ==
[2019-01-02] VITALS (9 sets, daily range): BP systolic 125–138; BP diastolic 65–69
[~2019-01-02] VITALS: Ht 170.2 cm; Wt 90.7 kg
--- OUTSIDE RECORDS SUMMARY | 2019-01-02 02:14 | XMS REPORT | Clinical Summary ---
Author Author Dasilva [facility] Organization [place] [facility] Address Unknown Phone Unavailable Care Team Providers Care Section Leader Screen Printing Name Role Phone Carlos Peña DO PCP [...] tract infection with hematuria, site unspecified 07/07/2018 [facility] General Internal Medicine - Encounter 07/12/2018 Ruben Seth MD Cysto Retrograde-Bilateral 02/15/2018 Surgery General Surgery Mainor Mims MD 02/15/2018 Anesthesia General Surgery Event Ruben Seth MD 02/15/2018 Hospital General Surgery Encounter Ruben Seth MD Preoperative testing (Primary Dx) 02/10/2018 Pre-Admit Pre-Admission Testing Testing Appointment Ruben Seth MD Benign localized hyperplasia of prostate with urinary retention 01/11/2018 Hospital Radiology Encounter after 01/01/2018 Immunizations Name Dates Previously Given Next Due [...] Taken Vital Sign Reading 10/07/2018 4:04 PM CUTCH CLE[facility]ER Blood Pressure 130/74 10/07/2018 4:04 PM CUTCH CLEANER Pulse 62 10/07/2018 4:04 PM CUTCH CLEANER Temperature 36.1 C (97 F) 10/07/2018 4:04 PM CUTCH CLEANER Respiratory Rate 19 10/07/2018 4:04 PM CUTCH CLEANER Oxygen Saturation 95% - Inhaled Oxygen - Concentration 10/03/2018 12:17 PM CUTCH CLEANER Weight 76.2 kg (168 lb) 10/03/2018 12:17 PM CUTCH CLEANER Height 170.2 cm (5' 7") 10/03/2018 12:17 PM CUTCH CLEANER Body Mass Index 26.31 Plan of Treatment Health Maintenance Due Date Last Done Comments COLON CANCER SCREENING 12/08/1995 SHINGLES VACCINES (#1) 12/08/1995 PNEUMOCOCCAL 2010 POLYSACCHARIDE VACCINE AGE 65 AND OVER INFLUENZA VACCINE 03/09/2019 07/12/2018 65+ PNEUMOCOCCAL VACCINE 07/12/2019 07/12/2018 (2 of 2 - PPSV23) Procedures Comments Procedure Name Priority Date/Time Associated Diagnosis NM BONE SCAN WHOLE BODY Routine 10/07/2018 3:51 PM CUTCH CLEANER XR HIP 2-3 VIEWS RIGHT Routine 10/07/2018 1:32 PM CUTCH CLEANER US DUPLEX VENOUS LOWER Routine 10/07/2018 EXTREMITY BILATERAL 10:37 AM CUTCH CLEANER MRI PELVIS W WO CONTRAST Routine 10/06/2018 5:[address] ABDOMEN PELVIS W Routine 10/06/2018 CONTRAST 5:35 PM C[employer]CH CLEANER ESTIMATED GFR Routine 10/06/2018 5:53 AM CUTCH CLEANER BASIC METABOLIC PANEL Routine 10/06/2018 5:53 AM CUTCH CLEANER HC COMPLETE BLD COUNT Routine 10/06/2018 W/AUTO DIFF 5:53 AM CUTCH CLEANER ESTIMATED GFR Routine 10/05/2018 5:18 AM C[employer]CH CLEANER BASIC METABOLIC PANEL Routine 10/05/2018 5:18 AM C[employer]CH CLEANER HC COMPLETE BLD COUNT Routine 10/05/2018 W/AUTO DIFF 5:18 AM CUTCH CLEANER SURGICAL PATHOLOGY Routine 10/04/2018 REQUEST 1:48 PM CUTCH CLEANER AR AN ELECTIVE Routine 10/04/2018 SUPRAGLOTTIC AIRWAY 11:07 AM CUTCH CLEANER Procedure Note - Bhavik Burt CRNA - 10/04/2018 11:07 AM CUTCH CLEANER Airway Date/Time: 10/04/2018 11:02 AM Performed by: [...] 1 ESTIMATED GFR Routine 10/04/2018 6:13 AM CUTCH CLEANER COMPREHENSIVE METABOLIC Routine 10/04/2018 PANEL 6:13 AM CUTCH CLEANER PROTHROMBIN TIME WITH INR Routine 10/04/2018 6:13 AM C[employer]CH CLEANER HC COMPLETE BLD COUNT Routine 10/04/2018 W/AUTO DIFF 6:13 AM CUTCH CLEANER URINE CULTURE STAT 10/03/2018 6:01 PM CUTCH CLEANER GRAM STAIN STAT 10/03/2018 6:01 PM CUTCH CLEANER URINALYSIS SCREEN AND STAT 10/03/2018 MICROSCOPY, WITH REFLEX 5:27 PM CUTCH CLEANER TO CULTURE XR CHEST 1 VW PORTABLE STAT 10/03/2018 3:42 PM CUTCH CLEANER TYPE AND SCREEN Routine 10/03/2018 3:30 PM CUTCH CLEANER PARTIAL THROMBOPLASTIN STAT 10/03/2018 TIME (PTT) 3:30 PM CUTCH CLEANER PROTHROMBIN TIME WITH INR STAT 10/03/2018 3:30 PM CUTCH CLEANER HC COMPLETE BLD COUNT STAT 10/03/2018 W/AUTO DIFF 3:30 PM CUTCH CLEANER ECG ED PRELIMINARY Routine 10/03/2018 INTERPRETATION 3:08 PM C[employer]CH CLEANER MRI LUMBAR SPINE WO STAT 10/03/2018 CONTRAST 3:08 PM C[facility]CH CLEANER ECG 12-LEAD STAT 10/03/2018 1:54 PM C[facility]CH CLEANER POC GLUCOSE Routine 07/11/2018 11:40 AM C[employer]CH CLEANER ESTIMATED GFR Routine 07/11/2018 8:40 AM C[employer]CH CLE[employer]ER COMPREHENSIVE METABOLIC Routine 07/11/2018 PANEL 8:40 AM CUTCH CLEANER HC COMPLETE BLD COUNT Routine 07/11/2018 W/AUTO DIFF 8:40 AM C[employer]CH CLEANER ECHOCARDIOGRAM 2D Routine 07/09/2018 COMPLETE W MMODE SPECTRAL 8:57 PM C[employer]CH CLEANER COLOR DOPPLER ([id number]) ARTERIAL BLOOD GAS STAT 07/09/2018 7:29 PM CUTCH CLEANER ECG 12-LEAD STAT 07/09/2018 7:09 PM C[employer]CH CLEANER BLOOD CULTURE, AEROBIC & Routine 07/09/2018 ANAEROBIC 7:03 PM [facility]CH CLE[employer]ER C-REACTIVE PROTEIN STAT 07/09/2018 6:59 PM C[employer]CH CLEANER ESTIMATED GFR STAT 07/09/2018 6:59 PM C[employer]CH CLEANER LIPASE LEVEL STAT 07/09/2018 6:59 PM C[employer]CH CLEANER PHOSPHORUS LEVEL STAT 07/09/2018 6:59 PM C[employer]CH CLE[employer]ER PROCALCITONIN STAT 07/09/2018 6:59 PM CUTCH CLEANER PROTHROMBIN TIME WITH INR STAT 07/09/2018 6:59 PM C[employer]CH CLEANER PARTIAL THROMBOPLASTIN STAT 07/09/2018 TIME (PTT) 6:59 PM C[employer]CH CLEANER MAGNESIUM LEVEL STAT 07/09/2018 6:59 PM CUTCH CLEANER CREATINE KINASE, TOTAL STAT 07/09/2018 (CPK) 6:59 PM CUTCH CLEANER TROPONIN STAT 07/09/2018 6:59 PM C[employer]CH CLEANER THYROID STIMULATING STAT 07/09/2018 HORMONE 6:59 PM CUTCH CLEANER T4, FREE STAT 07/09/2018 6:59 PM C[facility]CH CLEANER LACTIC ACID LEVEL STAT 07/09/2018 6:59 PM CUTCH CLEANER IONIZED CALCIUM STAT 07/09/2018 6:59 PM CUTCH CLEANER COMPREHENSIVE METABOLIC STAT 07/09/2018 PANEL 6:59 PM CUTCH CLEANER HC COMPLETE BLD COUNT STAT 07/09/2018 W/AUTO DIFF 6:59 PM CUTCH CLEANER B NATRIURETIC PEPTIDE STAT 07/09/2018 6:59 PM C[employer]CH CLEANER BLOOD CULTURE, AEROBIC & Routine 07/09/2018 ANAEROBIC 6:59 PM CUTCH CLEANER XR CHEST 1 VW PORTABLE STAT 07/09/2018 6:52 PM CUTCH CLEANER POC GLUCOSE Routine 07/09/2018 6:06 PM CUTCH CLEANER GRAM STAIN Routine 07/08/2018 5:10 PM C[employer]CH CLEANER RESPIRATORY CULTURE Routine 07/08/2018 5:[address] ABDOMEN PELVIS W WO STAT 07/08/2018 CONTRAST 10:28 AM CUTCH CLEANER ESTIMATED GFR Routine 07/08/2018 9:31 AM CUTCH CLEANER BASIC METABOLIC PANEL Routine 07/08/2018 9:31 AM C[employer]CH CLEANER HC COMPLETE BLD COUNT Routine 07/08/2018 W/AUTO DIFF 9:31 AM CUTCH CLEANER VENOUS BLOOD GAS Routine 07/08/2018 6:14 AM C[employer]CH CLEANER ECG 12-LEAD STAT 07/08/2018 5:55 AM CUTCH CLEANER TROPONIN Timed 07/08/2018 3:44 AM CUTCH CLEANER LACTIC ACID LEVEL, SEPSIS Timed 07/08/2018 - NOW AND REPEAT 2X EVERY 3:44 AM C[facility]CH CLE[employer]ER [address] ANGIOGRAM PE CHEST STAT 07/08/2018 12:24 AM CUTCH CLEANER TROPONIN Timed 07/08/2018 12:19 AM CUTCH CLEANER LACTIC ACID LEVEL, SEPSIS Timed 07/08/2018 - NOW AND REPEAT 2X EVERY 12:19 AM CUTCH CLEANER 3 HOURS ECG 12-LEAD STAT 07/08/2018 12:02 AM CUTCH CLEANER CONSULT TO SEPSIS Routine 07/07/2018 Sepsis, due to RESPONSE TEAM 9:38 PM CUTCH CLEANER unspecified organism (HCC) BLOOD CULTURE, AEROBIC & Routine 07/07/2018 ANAEROBIC 8:51 PM CUTCH CLEANER ECG ED PRELIMINARY Routine 07/07/2018 INTERPRETATION 8:49 PM CUTCH CLEANER AR CRITICAL CARE, E/M Routine 07/07/2018 30-74 MINUTES 8:49 PM C[facility]CH CLEANER URINALYSIS SCREEN AND STAT 07/07/2018 MICROSCOPY, WITH REFLEX 8:43 PM CUTCH CLEANER TO CULTURE GRAM STAIN STAT 07/07/2018 8:43 PM C[employer]CH CLEANER URINE CULTURE STAT 07/07/2018 8:43 PM CUTCH CLEANER ESTIMATED GFR STAT 07/07/2018 8:38 PM CUTCH CLEANER B NATRIURETIC PEPTIDE STAT 07/07/2018 8:38 PM CUTCH CLEANER TROPONIN STAT 07/07/2018 8:38 PM CUTCH CLEANER LIPASE LEVEL STAT 07/07/2018 8:38 PM CUTCH CLEANER LACTIC ACID LEVEL, SEPSIS STAT 07/07/2018 - NOW AND REPEAT 2X EVERY 8:38 PM CUTCH CLEANER 3 HOURS HEPATIC FUNCTION PANEL STAT 07/07/2018 8:38 PM CUTCH CLEANER BASIC METABOLIC PANEL STAT 07/07/2018 8:38 PM CUTCH CLEANER HC COMPLETE BLD COUNT STAT 07/07/2018 W/AUTO DIFF 8:38 PM CUTCH CLEANER ECG 12-LEAD STAT 07/07/2018 8:37 PM CUTCH CLEANER BLOOD CULTURE, AEROBIC & Routine 07/07/2018 ANAEROBIC 8:35 PM CUTCH CLEANER XR CHEST 1 VW PORTABLE STAT 07/07/2018 8:32 PM CUTCH CLEANER FL PYELOGRAM RETROGRADE Routine 02/15/2018 2:31 PM CDT ANESTHESIA INTUBATION Routine 02/15/2018 1:02 PM CDT Procedure Note - Angel Alvarez, LUPIS - 02/15/2018 1:02 PM CDT Airway Performed by: ANGEL ALVAREZ Authorized by: MAINOR MIMS ELECTIVE Routine 02/15/2018 SUPRAGLOTTIC AIRWAY 12:57 PM CDT Procedure Note - Angel Alvarez, FLOOR SERVICE WORKER [place] - 02/15/2018 12:57 PM CDT Airway Date/Time: [...] hyperplasia of prostate with urinary retention after 01/01/2018 Results * NM Bone Scan Whole Body (10/07/2018 3:51 PM CUTCH CLEANER) Specimen Narrative Performed At Procedure:NM BONE SCAN WHOLE [...] seen IMPRESSION: Negative whole-body bone scan exam. [id number] Procedure Note Interface, Radiology Results Incoming - 10/07/2018 4:52 PM CUTCH CLEANER Procedure:NM BONE SCAN WHOLE BODY REFERRING PHYSICIAN:RUBEN [...] seen IMPRESSION: Negative whole-body bone scan exam. [id number] Performing Organization Address City/State/Zipcode Phone Number [facility] [address] [place] [address] * XR Hip 2-3 View Right (10/07/2018 1:32 PM CUTCH CLEANER) Specimen Narrative Performed At EXAMINATION:XR H[facility] 2-[facility]:hip pain COMPARISON:None. TECHNIQUE: [...] Negative for fracture or focal bony lesion. [id number] Procedure Note Interface, Radiology Results Incoming - 10/07/2018 3:51 PM CUTCH CLEANER EXAMINATION: XR HIP 2-3 VIEWS RIGHT CLINICAL [...] Negative for fracture or focal bony lesion. [id number] Performing Organization Address [facility] Phone Number [facility] [address] [place] [address] * Us duplex venous lower extremity (10/07/2018 10:37 AM CUTCH CLEANER) Specimen Narrative Performed At EXAMINATION:US DUPLEX VENOUS LOWER [...] is no evidence of deep venous thrombosis. [facility]-[id number] Procedure Note Interface, Radiology Results Incoming - 10/07/2018 10:45 AM CUTCH CLEANER EXAMINATION: US DUPLEX VENOUS LOWER EXTREMITY BILATERAL [...] is no evidence of deep venous thrombosis. [facility]-[id number] Performing Organization Address [facility] Cent[facility]ode Phone Number [facility] [address] [place] [address] * MRI Pelvis W Wo Contrast (10/06/2018 5:50 PM CUTCH CLEANER) Specimen Narrative Performed At [facility] EXAMINATION:MRI PELVIS W [...] evidence of abscess formation or inflammatory changes. [id number] Procedure Note Interface, Radiology Results Incoming - 10/06/2018 6:35 PM CUTCH CLEANER EXAMINATION: MRI PELVIS W WO CONTRAST CLINICAL [...] evidence of abscess formation or inflammatory changes. [id number] Performing Organization Address City/State/Zipcode Phone Number [facility] [address] [place] [address] * CT Abdomen Pelvis W Contrast (10/06/2018 5:35 PM CUTCH CLEANER) Specimen Narrative Performed At EXAMINATION:CT ABDOMEN PELVIS W [...] with maximum diameter of 3.4 cm, unchanged. [facility]-[id number] Procedure Note [facility], Radiology Results Incoming - 10/06/2018 5:55 PM CUTCH CLEANER EXAMINATION: CT ABDOMEN PELVIS W CONTRAST CLINICAL [...] with maximum diameter of 3.4 cm, unchanged. [facility]-[id number] Performing Organization Address City/[facility]/Zipcode Phone Number [facility] [address] [place] [address] * Estimated GFR (10/06/2018 5:53 AM CUTCH CLEANER) Only the most recent of 7 results within the time period is included. Pathologist [facility] Estimated GFR 85 mL/min/1.73 m2 [facility] Comment: [facility] G1 >=90 Normal or high G2 60-89Mildly decreased G3b06-65 Mildly to moderately decreased K8y81-29 Moderately to severely decreased G4 15-29Severely decreased G5 <15Kidney failure The eGFR was calculated using the Chronic Kidney Disease Epidemiology Collaboration (CKD-EPI) equation. Interpretation is based on recommendations of the National Kidney Foundation-Kidney Disease Outcomes Quality Initiative (NKF-KDOQI) published in 2014. Specimen Plasma specimen Performing Organization Address City/[facility]/Zipcode Phone Number [facility] DEPARTMENT OF [address] [place] [address] PATHOLOGY AND GENOMIC MEDICINE [address] * CBC with platelet and differential (10/06/2018 5:53 AM CUTCH CLEANER) Only the most recent of 9 results within the time period is included. WBC 6.1 4.2 - 11.0 k/uL [facility] RBC 4.07 4.04 - 5.86 m/uL [facility] HGB 12.0 (L) 13.0 - 17.3 g/dL [facility] HCT 37.8 34.0 - 45.0 % [facility] MCV 92.9 80.0 - 98.0 fL [facility] MCH 29.5 27.0 - 34.0 pg [facility] MCHC 31.7 31.5 - 36.5 g/dL [facility] RDW - SD 46.1 37.0 - 51.0 fL [facility] MPV 9.6 7.4 - 10.4 fL [facility] Platelet count 238 150 - 400 k/uL [facility] Nucleated RBC 0.00 /100 WBC [facility] Neutrophils 52.7 36.0 - 66.0 % [facility] Lymphocytes 32.8 24.0 - 44.0 % [facility] Monocytes 10.3 (H) 0.0 - 6.0 % [facility] Eosinophils 2.6 0.0 - 6.0 % [facility] Basophils 0.5 0.0 - 1.2 % [facility] Immature 1.1 (H) 0.0 - 1.0 % [facility] granulocytes [facility] Specimen Blood Performing Organization Address City/State/Zipcode Phone Number [facility] OF [address] [place] [address] PATHOLOGY AND GENOMIC MEDICINE [address] * Basic metabolic panel (10/06/2018 5:53 AM CUTCH CLEANER) Only the most recent of 6 results within the time period is included. Sodium 141 135 - 150 mEq/L [facility] Potassium 4.1 3.5 - 5.0 mEq/L [facility] Chloride 104 98 - 112 mEq/L [facility] CO2 27 24 - 31 mmol/L [facility] Anion gap 10@ANIO 7 - 15 mEq/L [facility] BUN 14 7 - 18 mg/dL [facility] Creatinine 0.90 0.70 - 1.20 mg/dL [facility] Glucose 98 65 - 100 mg/dL [facility] Calcium 8.6 (L) 8.8 - 10.2 mg/dL [facility] Specimen Plasma specimen Performing Organization Address City/State/Zipcode Phone Number [facility] OF [address] [place] [address] PATHOLOGY AND GENOMIC MEDICINE [place] [id number] [address] * Surgical pathology request (10/04/2018 1:48 PM CUTCH CLEANER) [facility] OF PATHOLOGY AND GENOMIC MEDICINE Surgical See link below for PDF Lab [facility] pathology Report OF PATHOLOGY report AND GENOMIC MEDICINE Result status This is Final Report for [facility] [id number] OF PATHOLOGY AND GENOMIC MEDICINE Specimen Performing Organization Address City/[facility] Centercode Phone Number [facility] DE[facility] OF [address] [place] [address] PATHOLOGY AND GENOMIC MEDICINE * Prothrombin time with INR (10/04/2018 6:13 AM CUTCH CLEANER) Only the most recent of 4 results within the time period is included. Pathologist [facility] Prothrombin 13.9 11.5 - 14.5 sec [facility] INR 1.10 [facility] Comment: GNOSTICISM [facility] For patients on anticoagulant DISHA therapy, reference ranges HOSPITAL below: Indication: INR Value Treatment of Venous Thrombosis, 2.0-3.0 pulmonary emboli, or prophylaxis of a venous thrombosis, or systemic emboli. High dose, high risk patients 3.0-4.5 with mechanical valves. NOTE:INR values over 3.0 are sometimes associated with gastrointestinal hemorrhage, especially values over 4.0. Specimen Blood Performing Organization Address City/[facility]/Zipcode Phone Number [facility] OF [address] [facility]. [place] [id number] PATHOLOGY AND GENOMIC MEDICINE [place] [phone] [address] * Comprehensive metabolic panel (10/04/2018 6:13 AM CUTCH CLEANER) Only the most recent of 3 results within the time period is included. [facility] Sodium 141 135 - 150 mEq/L [facility] Potassium 4.2 3.5 - 5.0 mEq/L [facility] Chloride 107 98 - 112 mEq/L [facility] CO2 24 24 - 31 mmol/L [facility] Anion gap 10@ANIO 7 - 15 mEq/L [facility] BUN 12 7 - 18 mg/dL [facility] Creatinine 0.90 0.70 - 1.20 mg/dL [facility] Glucose 117 (H) 65 - 100 mg/dL [facility] Calcium 8.7 (L) 8.8 - 10.2 mg/dL [facility] Protein 6.4 6.3 - 8.3 g/dL [facility] Albumin 2.9 (L) 3.5 - 5.0 g/dL [facility] A/G ratio 0.8 0.7 - 3.8 [facility] Alkaline 58 0 - 129 U/L [facility] phosphatase [facility] AST 18 10 - 50 U/L [facility] ALT 19 5 - 50 U/L [facility] Total bilirubin 0.4 0.2 - 1.2 mg/dL [facility] Specimen Plasma specimen Performing Organization Address City/[facility] Cent[facility]ode Phone Number [facility] [address] [place] [address] PATHOLOGY AND GENOMIC MEDICINE [facility] [address] * Gram stain (10/03/2018 6:01 PM CUTCH CLEANER) Only the most recent of 3 results within the time period is included. Gram stain Few WBC's [facility] result No organisms seen GNOSTICISM Comment: HOSPITAL Specimen Information Specimen Source: Urine Specimen Site: Clean catch Specimen Urine Performing Organization Address City/[facility]/Zipcode Phone Number [facility] DEPART[facility] [address] [place] [address] PATHOLOGY AND GENOMIC MEDICINE [id number] [place] [address] * Urine culture (10/03/2018 6:01 PM CUTCH CLEANER) Only the most recent of 2 results within the time period is included. Urine culture No growth after 24 hours [facility] isolate Comment: GNOSTICISM Specimen Information HOSPITAL Specimen Source: Urine Specimen Site: Clean catch Specimen Urine Performing Organization Address City/State/Zipcode Phone Number [facility] DEPARTMENT OF [address] [place] [address] PATHOLOGY AND GENOMIC MEDICINE [place] [id number] [place] [address] [facility] * Urinalysis screen and microscopy, with reflex to culture (10/03/2018 5:27 PM CUTCH CLEANER) Only the most recent of 2 results within the time period is included. Specimen site Clean catch [facility] Color, UA Yellow [facility] Appearance, UA Clear [facility] Specific 1.008 1.001 - 1.035 [facility] gravity, [facility] pH, UA 7.0 5.0 - 8.5 [facility] Protein, UA Negative Negative [facility] Glucose, UA Negative Negative [facility] Ketones, UA Negative Negative [facility] Bilirubin, UA Negative Negative [facility] Blood, UA Negative Negative [facility] Nitrite, UA Negative Negative [facility] Urobilinogen, Negative <2.0 [facility] Leukocyte Large (A) Negative [facility] esterase, [facility] Epithelial Few /HPF [facility] cells, UA [facility] WBC, UA 76 (H) 0 - 1 /HPF [facility] RBC, UA 9 (H) 0 - 5 /HPF [facility] Bacteria, UA None seen None seen [facility] Yeast, UA Few (A) [facility] Yeast with None seen [facility] pseudohyphae, [facility] Specimen Urine Performing Organization Address City/State/Zipcode Phone Number [facility] OF [address] [place] [address] PATHOLOGY AND GENOMIC MEDICINE [facility] [address] [place], [place] [phone] [place] [address] * XR Chest 1 Vw Portable (10/03/2018 3:42 PM CUTCH CLEANER) Only the most recent of 3 results within the time period is included. Specimen Narrative Performed At EXAMINATION:XR CHEST 1 VW PORTABLE [facility] CLINICAL HISTORY:preop COMPARISON:July 09, 2018 IMPRESSION: Lines: None Lungs and pleura: Bibasilar subsegmental atelectasis versus scarring. No consolidations. No pleural effusion or pneumothorax. Heart and mediastinum: Stable appearance of cardiomediastinal silhouette. Bones: No suspicious osseous lesions. [facility]-[id number] Procedure Note Hm Interface, Radiology Results Incoming - 10/03/2018 3:49 PM CUTCH CLEANER EXAMINATION: XR CHEST 1 VW PORTABLE CLINICAL HISTORY: preop COMPARISON: July 09, 2018 IMPRESSION: Lines: None Lungs and pleura: Bibasilar subsegmental atelectasis versus scarring. No consolidations. No pleural effusion or pneumothorax. Heart and mediastinum: Stable appearance of cardiomediastinal silhouette. Bones: No suspicious osseous lesions. [id number] Performing Organization Address [facility] Centercode Phone Number [facility] [address] [place] [address] * Partial thromboplastin time, activated (10/03/2018 3:30 PM CUTCH CLEANER) Only the most recent of 2 results within the time period is included. PTT 27.5 23.0 - 36.0 sec [facility] Comment: [facility] PTT therapeutic range for [facility] unfractionated heparin is HOSPITAL 61.0-112.0 seconds which corresponds to Anti-Xa 0.3-0.7 U/ml. Note:Change in Panic Value The PTT Panic Value is changing from 110 sec. to 100 sec. due to new instrumentation and reagents. Correlation studies have been performed to validate this result. Specimen Blood Performing Organization Address City/[facility] Centercode Phone Number [facility] OF [address] [place] [address] PATHOLOGY AND GENOMIC MEDICINE [facility] [address] [place], [place] [id number] [place] [address] * Type and screen (10/03/2018 3:30 PM CUTCH CLEANER) ABO grouping A [facility] Rh type POS [facility] Antibody screen NEG [facility] (gel) [facility] Specimen Blood Performing Organization Address City/[facility]/Zipcode Phone Number [facility] OF [address] [place] [address] PATHOLOGY AND GENOMIC MEDICINE [place] [address] [place] [address] [facility] * ECG ED Preliminary Interpretation - Not an Order (10/03/2018 3:08 PM CUTCH CLEANER) Only the most recent of 2 results within the time period is included. Narrative Performed At Violet Newsome DO 10/04/20188:21 PM ECG ED Preliminary Interpretation - Not an Order Performed by: Violet Newsome DO Authorized by: Violet Newsome DO ECG reviewed by ED Physician in the absence of a proctologist: yes Interpretation: Interpretation: abnormal Rate: ECG rate:59 ECG rate assessment: bradycardic Rhythm: Rhythm: sinus bradycardia Ectopy: Ectopy: none QRS: QRS axis:Left QRS intervals:Normal Conduction: Conduction: normal ST segments: ST segments:Normal T waves: T waves: normal * MRI Lumbar Spine Wo Contrast (10/03/2018 3:08 PM CUTCH CLEANER) Specimen Narrative Performed At [facility] EXAMINATION: MRI [...] the lower lumbar spine without significant stenosis. [facility][id number] Procedure Note Hm Interface, Radiology Results Incoming - 10/03/2018 3:21 PM CUTCH CLEANER EXAMINATION: MRI LUMBAR SPINE WO CONTRAST CLINICAL [...] the lower lumbar spine without significant stenosis. [facility]-[id number] Performing Organization Address [facility] Centercode Phone Number [facility] [address] [place] [address] * ECG 12 lead (10/03/2018 1:54 PM CUTCH CLEANER) Only the most recent of 5 results within the time period is included. Pathologist [facility] Ventricular 59 [facility] rate Atrial rate 59 [facility] AR interval 164 [facility] QRSD interval 142 [facility] QT interval 452 [facility] QTC interval 447 [facility] P axis 1 61 [facility] QRS axis 1 -36 [facility] T wave axis 51 [facility] EKG impression Sinus bradycardia-Left axis [facility] MUSE deviation-Right bundle branch block-Abnormal ECG-In automated comparison with ECG of 09-JUL-2018 19:09,-premature atrial complexes are no longer present-Vent. rate has increased BY19 BPM-Inverted T waves have replaced nonspecific T wave abnormality in Anterior leads-QT has lengthened- Specimen Narrative Performed At Performing Organization Address [facility] Phone Number [facility] MUSE [address] [place] [address] * POC glucose (07/11/2018 11:40 AM CUTCH CLEANER) Only the most recent of 2 results within the time period is included. [facility] POC glucose 97 65 - 100 mg/dL SHUNK Comment: AUREA RICE Meter ID: [id number] DISHA Hide Grader: [facility] Specimen Performing Organization Address City/State/Zipcode Phone Number [facility] DE[facility] OF [address] [facility] [place] [address] PATHOLOGY AND GENOMIC MEDICINE [facility] AUREA RICE [address] [place], [place] [id number] [place] [address] * Echocardiogram complete w contrast and 3D if needed (07/09/2018 8:57 PM CUTCH CLEANER) Ao Root 3.43 cm [facility] Diameter AoV Area, Vmax 2.17 cm2 [facility] AoV Area, VTI 2.42 cm2 [facility] AoV Mean PG 7.25 mmHg [facility] AoV Peak PG 15.42 mmHg [facility] AoV Vmax 2.02 m/s [facility] AoV VTI 0.43 m [facility] BSA Mcnamara 1.99 m2 [facility] BSA 1.93 m2 [facility] IVS,d 0.78 cm [facility] IVS/LVPW,2D 0.54 [facility] Left Atrium 3.82 cm [facility] Dimension Anterior LV,d 5.11 cm [facility] LV [...] mmHg [facility] AoV area i VTI 1.26 cm2/m2 [facility] BSA [place] MR Vmax 4.93 m/s [facility] BMI 28.04 kg/m2 [facility] E wave 197.10 msec [facility] decelartion time MV Peak A Jorge A 0.78 m/s [facility] MV valve area p 3.85 cm2 [facility] 1/2 method MV Peak E Jorge A 1.08 m/s [facility] MV stenosis 57.16 ms [facility] pressure 1/2 time AV LVOT peak 6.07 mmHg [facility] gradient Ao Root 3.43 cm [facility] Diameter MV mean 1.00 mmHg [facility] gradient LV SYS VOL 31.26 ml [facility] LV DEWITT VOL 124.60 ml [facility] LA area s A4C 21.20 cm2 [facility] LV SI Teich 2D 48.39 ml/m2 [facility] LV SV Teich 2D 93.34 ml [facility] LV Vol s Teich 31.26 ml [facility] PSAX LVOT CI 2.48 l/min/m2 [facility] LVOT CO 4.78 l/min [facility] LVOT HR for 46.10 bpm [facility] LVOT CO LVOT SI 53.70 ml/m2 [facility] MR [...] 125.30 [facility] AoV area I VMN 1.27 cm2/m2 [facility] bsa Calc MPHR 147.41 bpm [facility] IVS pct thck 67.86 % [facility] PLAX LV SI Cube 2D 57.15 ml/m2 [facility] LV SV Cube 2D 110.24 ml [facility] LV vol d cube 133.75 ml [facility] 2D LV vol s cube 23.51 ml [facility] 2D LVPW pct thck 61.19 % [facility] PLAX LVPW s PLAX 2.32 cm [facility] MV Decel slope 5.47 m/s2 [facility] Pred Exer Dur 6.78 [facility] R1 Pred METS R1 7.11 [facility] LA Vol MOD A4C 59.49 ml [facility] Velocity Ratio 0.63 m/s [facility] (V1/V2) EF 74.91 % [facility] E/A ratio 1.38 [facility] Specimen Narrative Performed At Performing Organization Address City/State/Zipcode Phone Number [facility] [address] [place] [address] * Arterial blood gas (07/09/2018 7:29 PM CUTCH CLEANER) Hide Grader germain owens [facility] Collection site rra [facility] O2 therapy nc [facility] pH, arterial 7.462 (H) 7.350 - 7.450 units [facility] pCO2, arterial 35.9 35.0 - 45.0 mmHg [facility] pO2, arterial 80.4 80.0 - 90.0 mmHg [facility] O2 saturation, 96.4 95.0 - 100.0 % [facility] arterial [facility] Base excess, 1.8 mEq/L [facility] arterial [facility] Bicarbonate 25.6 21.0 - 28.0 mEq/L [facility] O2 content 17.7 VOL% [facility] FiO2, inspired 28.0 % [facility] O2% [facility] Carboxyhemoglob 0.3 0.0 - 1.4 % [facility] in Comment: [facility] Reference Ranges: [facility] Carboxyhemoglobin [facility] Non smoker: 0.0 - 2.0% Smoker: 2.1 - 5.0% Heavy smoker: 5.1 - 9% Methemoglobin 1.5 (H) 0.0 - 1.0 % [facility] Hemoglobin, 13.3 (L) 14.0 - 18.0 g/dL [facility] blood gas [facility] pO2, A-a 76.7 mmHg [facility] Specimen Blood Performing Organization Address City/[facility]/Zipcode Phone Number [facility] [address] [facility] [place] [address] PATHOLOGY AND GENOMIC MEDICINE [address] * Blood culture, aerobic & anaerobic (07/09/2018 7:03 PM CUTCH CLEANER) Only the most recent of 4 results within the time period is included. Blood culture No growth after 5 days of SHUNK isolate incubation. GNOSTICISM Comment: HOSPITAL Specimen Information Specimen Source: Blood Specimen Site: Peripheral Hand Left Specimen Blood Performing Organization Address City/[facility]/Zipcode Phone Number [facility] DEPARTMENT OF [address] [place] [address] PATHOLOGY AND GENOMIC MEDICINE [address] * Procalcitonin (07/09/2018 6:59 PM CUTCH CLEANER) Pathologist [facility] Procalcitonin 19.90 (H) <=0.07 ng/mL [facility] Comment: INTERPRETIVE INFORMATION: Procalcitonin Effective February 07, 2018, this test is performed by the [employer] Procalcitonin assay. A correction has been [...] the individual patient. Performed at: [facility] [address] [facility] [address] Specimen Serum Performing Organization Address City/State/Zipcode Phone Number [facility] [address] [place] [address] [facility] [address] [place] [address] * Troponin (07/09/2018 6:59 PM CUTCH CLEANER) Only the most recent of 4 results within the time period is included. Pathologist [facility] Troponin <0.30 0.00 - 0.30 ng/mL [facility] Comment: GNOSTICISM RICE 0.11 - 1.49 DISHA [facility] indicate increased risk of acute coronary syndrome. >=1.5 ng/ml Consistent with acute myocardial infarction. The diagnostic value of a single normal or non-diagnostic result is questionable.Serial samples at 2-6 hour intervals are required to rule out acute myocardial injury. Specimen Plasma specimen Performing Organization Address City/State/Zipcode Phone Number [place] [address] [place] [address] PATHOLOGY AND GENOMIC MEDICINE [address] * C-reactive protein (07/09/2018 6:59 PM CUTCH CLEANER) CRP 9.65 (H) 0.00 - 0.50 mg/dL [facility] Specimen Plasma specimen Performing Organization Address [facility] Phone Number [facility] DEPARTMENT OF [address] [place] [address] PATHOLOGY AND GENOMIC MEDICINE [address] * Thyroid stimulating hormone (07/09/2018 6:59 PM CUTCH CLEANER) TSH 0.30 0.27 - 4.20 uIU/mL [facility] Specimen Plasma specimen Performing Organization Address [facility] Phone Number [facility] [address] [place] [address] PATHOLOGY AND GENOMIC MEDICINE [address] * T4, free (07/09/2018 6:59 PM CUTCH CLEANER) Pathologist [facility] T4, free 0.90 0.90 - 1.70 ng/dL [facility] Specimen Plasma specimen Performing Organization Address [facility] Phone Number [facility] DEPARTMENT OF [address] [place] [address] PATHOLOGY AND GENOMIC MEDICINE [address] * Phosphorus level (07/09/2018 6:59 PM CUTCH CLEANER) Phosphorus 2.8 2.4 - 4.5 mg/dL [facility] Specimen Plasma specimen Performing Organization Address [facility] Phone Number [facility] [place] [address] PATHOLOGY AND GENOMIC MEDICINE [address] * B natriuretic peptide (07/09/2018 6:59 PM CUTCH CLEANER) Only the most recent of 2 results within the time period is included. BNP 297 (H) 0 - 100 pg/mL [facility] Specimen Blood Performing Organization Address City/[facility]/Zipcode Phone Number [facility] DEPARTMENT OF [address] [facility] [place] [address] PATHOLOGY AND GENOMIC MEDICINE [address] * Magnesium level (07/09/2018 6:59 PM CUTCH CLEANER) Magnesium 2.00 1.60 - 2.40 mg/dL [facility] Specimen Plasma specimen Performing Organization Address City/[facility] Phone Number [facility] DEPARTMENT OF [address] [place] [address] PATHOLOGY AND GENOMIC MEDICINE [address] * Lipase level (07/09/2018 6:59 PM CUTCH CLEANER) Only the most recent of 2 results within the time period is included. Lipase 16 13 - 60 U/L [facility] Specimen Plasma specimen Performing Organization Address City/[facility] Phone Number [facility] DE[facility]MENT OF [address] [facility] [place] [address] PATHOLOGY AND GENOMIC MEDICINE [address] * Lactic acid level (07/09/2018 6:59 PM CUTCH CLEANER) Lactic acid 1.7 0.5 - 2.2 mmol/L [facility] Specimen Blood Performing Organization Address City/[facility] Phone Number [facility] DE[facility]MENT OF [address] [facility] [place] [address] PATHOLOGY AND GENOMIC MEDICINE [address] * Creatine kinase, total (CPK) (07/09/2018 6:59 PM CUTCH CLEANER) Creatine kinase 69 39 - 308 U/L [facility] Specimen Plasma specimen Performing Organization Address City/[facility] Phone Number [facility] DE[facility]MENT OF [address] [facility] [place] [address] PATHOLOGY AND GENOMIC MEDICINE [address] * Ionized calcium (07/09/2018 6:59 PM CUTCH CLEANER) pH 7.40 [facility] Ionized calcium 1.16 1.11 - 1.32 mmol/L [facility] Specimen Plasma specimen Performing Organization Address City/[facility] Phone Number [facility] DE[facility]MENT OF [address] [place] [address] PATHOLOGY AND GENOMIC MEDICINE [facility] [address] * Respiratory culture (07/08/2018 5:10 PM CUTCH CLEANER) Respiratory Normal oral richard isolated. SHUNK culture isolate Comment: GNOSTICISM Specimen Information HOSPITAL Specimen Source: Bronchial Washing Specimen Site: All Lobes Specimen Bronchial washing - Washing Performing Organization Address [facility] Phone Number [facility] DEPARTMENT OF [address] [place] [address] PATHOLOGY AND GENOMIC MEDICINE [address] * CT Abdomen Pelvis W Wo Contrast (07/08/2018 10:28 AM CUTCH CLEANER) Specimen Narrative Performed At EXAMINATION:CT ABDOMEN PELVIS W WO CONTRAST [facility] CLINICAL HISTORY:Abnormal findings on diagnostic imaging of other parts of digestive tract, liver [id number] cm possible liver lesion TECHNIQUE: Multiple axial [...] factors High risk patients: *Greater than 20 keed-bitd-hbyv history of smoking, or equivalent second hand [...] short axes rounded to the nearest mm. [id number] Procedure Note Interface, Radiology Results [facility] - 07/08/2018 10:54 AM CUTCH CLEANER EXAMINATION: CT ABDOMEN PELVIS W WO CONTRAST [...] High risk patients: * Greater than 20 byhi-obud-vpwi history of smoking, or equivalent second hand [...] short axes rounded to the nearest mm. [id number] Performing Organization Address City/State/Zipcode Phone Number [facility] [address] [place] [address] * Venous blood gas (07/08/2018 6:14 AM CUTCH CLEANER) Hide Grader [id number] [facility] Collection site R HAND [facility] pH, venous 7.423 (H) 7.320 - 7.420 units [facility] pCO2, venous 44.1 (L) 45.0 - 51.0 mmHg [facility] pO2, venous 59.3 (H) 25.0 - 40.0 mmHg [facility] O2 saturation, 91.3 (H) 40.0 - 70.0 % SHUNK venous [facility] Base excess, 4.3 (H) -2.0 - 2.0 mEq/L [facility] venous [facility] Bicarbonate 28.8 (H) 21.0 - 28.0 mEq/L [facility] O2 content 17.1 VOL% [facility] FiO2, inspired 21.0 % [facility] O2% [facility] Carboxyhemoglob 0.9 0.0 - 1.4 % SHUNK in Comment: [facility] Reference Ranges: [facility] Carboxyhemoglobin [facility] Non smoker: 0.0 - 2.0% Smoker: 2.1 - 5.0% Heavy smoker: 5.1 - 9% Methemoglobin 1.3 (H) 0.0 - 1.0 % [facility] Hemoglobin, 13.6 (L) 14.0 - 18.0 g/dL [facility] blood gas [facility] Specimen Blood Performing Organization Address City/[facility] Cent[facility] Phone Number [place] [address] [place] [phone] PATHOLOGY AND GENOMIC MEDICINE [place] [address] [address] * Lactic acid level, SEPSIS - Now and repeat 2x every 3 hours (07/08/2018 3:44 AM CUTCH CLEANER) Only the most recent of 3 results within the time period is included. Lactic acid 1.2 0.5 - 2.2 mmol/L [facility] Specimen Blood Performing Organization Address City/[facility] Phone Number [place] [address] [place] [phone] PATHOLOGY AND GENOMIC MEDICINE [place] [address] [place] [address] [facility] * CT Angiogram Pe Chest (07/08/2018 12:24 AM CUTCH CLEANER) Specimen Narrative Performed At EXAMINATION: [facility] CT ANGIOGRAM PE CHEST CLINICAL HISTORY: recent [...] are seen of left renal collecting system. [facility]-[id number] Procedure Note Hm Interface, Radiology Results Incoming - 07/08/2018 12:45 AM CUTCH CLEANER EXAMINATION: CT ANGIOGRAM PE CHEST CLINICAL HISTORY: [...] are seen of left renal collecting system. [facility]-[id number] Performing Organization Address City/State/Zipcode Phone Number [facility] [address] [place] [address] * Sepsis Clinical Assessment (07/07/2018 9:38 PM CUTCH CLEANER) Narrative Performed At Robert Rich NP 07/08/20186:24 AM Reperfusion assessment done Sepsis Clinical Assessment Performed by: Robert Rich NP Authorized by: Robert Rich NP Sepsis Clinical Assessment General Assessment Information Current sepsis score:2 On comfort care?: No If score does not worsen, snooze alerts until:07/08/2018 09:00 CUTCH CLEANER SIRS Criteria Temperature > 38.3 C (101 [...] administrations. * CRITICAL CARE (07/07/2018 8:49 PM CUTCH CLEANER) Narrative Performed At Herminio Dick MD 07/08/2018 [...] * Hepatic function panel (07/07/2018 8:38 PM CUTCH CLEANER) Albumin 3.2 (L) 3.5 - 5.0 g/dL [facility] Total bilirubin 0.9 0.2 - 1.2 mg/dL [facility] Bilirubin 0.2 0.0 - 0.4 mg/dL [facility] direct [facility] Alkaline 57 0 - 129 U/L [facility] phosphatase [facility] Protein 6.3 6.3 - 8.3 g/dL [facility] ALT 17 5 - 50 U/L [facility] AST 26 10 - 50 U/L [facility] Specimen Plasma specimen Performing Organization Address City/State/Zipcode Phone Number [facility] DE[facility] OF [address] [place] [phone] PATHOLOGY AND GENOMIC MEDICINE [place] [address] [address] * [place] Pyelogram Retrograde (02/15/2018 2:31 PM CDT) Specimen Narrative Performed At EXAM: [facility] Intraoperative fluoroscopy. [...] 47 seconds. 4 image(s). Performing Organization Address [facility] Phone Number [facility] [address] [place] [address] * ECG Pre/Post Op (02/10/2018 12:41 PM CDT) Ventricular 49 [facility] rate Atrial rate 49 [facility] AR interval 136 [facility] QRSD interval 130 [facility] QT interval 444 [facility] QTC interval 401 [facility] P axis 1 27 [facility] QRS axis 1 -49 [facility] T wave axis 31 [facility] EKG impression Marked sinus bradycardia-Right [facility] MUSE bundle branch block-Left anterior fascicular block-^^^ Bifascicular block ^^^-Possible Lateral infarct , age undetermined-Abnormal ECG-In automated comparison with ECG of 17-MAY-2013 16:37,-Vent. rate has decreased BY26 BPM-(RBBB and left anterior fascicular block) is now present- Specimen Performing Organization Address [facility] Phone Number [facility] [employer] [address] [place] [address] * Estimated GFR (02/10/2018 12:20 PM CDT) Only the most recent of 2 results within the time period is included. GFR Non Af Amer 73 mL/min/1.73 m2 [facility] OF PATHOLOGY AND GENOMIC MEDICINE GFR Af Amer 89 mL/min/1.73 m2 [facility] Comment: OF PATHOLOGY Chronic kidney disease: <60 AND GENOMIC mL/min/1.73m2 MEDICINE Kidney failure: <15 mL/min/1.73m2 The estimated GFR [...] Americans. Specimen Plasma specimen Performing Organization Address City/[facility] Phone Number [facility] OF [address] [place] [address] PATHOLOGY AND GENOMIC MEDICINE * CBC hemogram (01/11/2018 11:43 AM CDT) WBC 4.0 (L) 4.2 - 11.0 k/uL [facility] OF PATHOLOGY AND GENOMIC MEDICINE RBC 4.90 4.04 - 5.86 m/uL [facility] OF PATHOLOGY AND GENOMIC MEDICINE HGB 14.4 13.0 - 17.3 g/dL [facility] OF PATHOLOGY AND GENOMIC MEDICINE HCT 45.0 34.0 - 45.0 % [facility] OF PATHOLOGY AND GENOMIC MEDICINE MCV 91.8 80.0 - 98.0 fL [facility] OF PATHOLOGY AND GENOMIC MEDICINE MCH 29.4 27.0 - 34.0 pg [facility] OF PATHOLOGY AND GENOMIC MEDICINE MCHC 32.0 31.5 - 36.5 g/dL [facility] OF PATHOLOGY AND GENOMIC MEDICINE RDW - SD 48.1 37.0 - 51.0 fL [facility] OF PATHOLOGY AND GENOMIC MEDICINE MPV 10.9 (H) 7.4 - 10.4 fL [facility] OF PATHOLOGY AND GENOMIC MEDICINE Platelet count 171 150 - 400 k/uL [facility] OF PATHOLOGY AND GENOMIC MEDICINE Nucleated RBC 0.00 /100 WBC [facility] OF PATHOLOGY AND GENOMIC MEDICINE Specimen Blood Performing Organization Address City/[facility] Centercode Phone Number [facility] [address] [place] [address] PATHOLOGY AND [place] MEDICINE * Prostate specific antigen (01/11/2018 11:43 AM CDT) Pathologist [facility] PSA 5.1 (H) 0.0 - 4.0 ng/mL [facility] DEPARTMENT Comment: OF PATHOLOGY The HAO 8000 PSA immunoassay AND GENOMIC was used. MEDICINE Results obtained with different assay methods or kits should not be used interchangeably and may be different. Specimen Plasma specimen Performing Organization Address City/[facility]/Zipcode Phone Number [facility] DEPARTMENT OF [address] [place] [address] PATHOLOGY AND GENOMIC MEDICINE * US Prostate (01/11/2018 11:38 AM CDT) Specimen Narrative Performed At [facility]AMINATION[facility] CLINICAL HISTORY:N40.1 Benign prostatic hyperplasia with lower [...] prostate. Performing Organization Address City/State/Zipcode Phone Number [facility] [address] [place] [address] after 01/01/2018 Insurance Type Payer Benefit Subscriber ID Effective Phone Address Plan / Dates Group Medicare MEDICARE MEDICARE xxxxxxxxxxx 2010-P [place]OWN, PART A AND resent [place] B Commercial [employer] OF xxxxxxxx 2017-P MELODY diaz Advance Directives Patient has advance care planning documents on file. For more information, eduardo manuel contact: [place] [address] [facility] [place] [address]
--- OUTSIDE RECORDS SUMMARY | 2019-01-02 02:15 | XMS REPORT | Continuity of Care Document ---
Author Author [facility] Organization Interface Address Unknown Phone Unavailable Problems Problem Status Onset Date Classification Date Reported Comments Source MENISCUS TEAR Active 07/05/2017 [facility] MENISCUS TEAR Active 07/05/2017 [facility] Acute prostatitis Active Problem 07/11/2017 [facility] Anxiety Active Problem 07/11/2017 [facility] BPH (<span ID="[id number]</span>) Active Problem 07/11/2017 [facility] [...] TEAR OF MEDIAL MENSC, CURRENT IN Active [facility] UNILATERAL PRIMARY OSTEOARTHRITIS, LEFT Active [facility] Medications Medication Details Route Status Patient Instructions Ordering Provider Order Date Source Levofloxacin (Levaquin) 500 Mg Tablet, 500 Mg Oral Daily Active 12/08/2018 [facility] Losartan , Oral Daily Active 07/04/2018 [facility] Amitriptyline Hcl 25 Mg Tablet, 25 Mg Oral Bedtime Active 09/07/2017 [facility] Ciprofloxacin Hcl (Cipro) 500 Mg Tablet, 500 Mg Oral Twice A Day Active 09/07/2017 [facility] Keflex , Unknown Active 09/07/2017 [facility] Phenazopyridine Hcl 200 Mg Tablet, 200 Mg Oral Every 8 Hours Active 09/07/2017 [facility] Potassium Chloride 10 Meq Tablet.er, 10 Meq Oral Daily Active 09/07/2017 [facility] Tizanidine Hcl (Zanaflex) 4 Mg Capsule, 4 Mg Oral Bedtime Active 09/07/2017 [facility] Triamterene/Hydrochlorothiazid (Triamterene-Hctz 75-50 Mg Tab) 1 Each Tablet, 1 Tab Oral Every Morning Active 09/07/2017 [facility] Tramadol 50 mg, 1 tab, Route: PO, Drug form: TAB, Q6H, Dosing Weight 85.455, kg, PRN Pain Score 1-3, Start date: 07/08/17 14:18:00 [employer], Duration: 30 day, Stop date: 08/07/17 14:17:00 CSTNotes: Not to exceed 4 00mg/day. (Same As: Ultram) No Longer Active 07/08/[facility] Morphine 2 mg, 0.2 mL, Route: IVP, Drug form: INJ, Q3H, Dosing Weight 85.455, kg, PRN Pain Score 1-3, Start date: 07/08/17 14:18:00 [employer], Duration: 30 day, Stop date: 08/07/17 14:17:00 CSTNotes: (Same as:MORPhine Sulfate) No Longer Active 07/08/2017 [facility] Hydromorphone 0.3 mg, 0.15 mL, Route: IVP, Drug form: INJ, Q3H, Dosing Weight 85.455, kg, PRN Pain Score 4-6, Start date: 07/08/17 14:18:00 [employer], Duration: 30 day, Stop date: 08/07/17 14:17:00 CSTNotes: Same as Dilaudid No Longer Active 07/08/2017 [facility] Acetaminophen 325 MG / Hydrocodone Bitartrate 10 MG Oral Tablet 1 tab, Route: PO, Drug Form: TAB, Dosing Weight 85.455, kg, Q4H, PRN Pain Score 4-6, Start date: 07/08/17 14:18:00 [employer], Duration: 30 day, Stop date: 08/07/17 14:17:00 CSTNotes: Do not exceed 4gm/day of acetaminophen. (Same as: [place] 325/10) No Longer Active 07/08/2017 [facility] Ancef 2 gm, Route: IVP, Drug form: PDR/INJ, ONCE, Dosing Weight 85.455, kg, Start date: 07/08/17 12:46:00 [employer], Stop date: 07/08/17 12:46:00 [employer], Surgical Prophylaxis Only; For patients Notes: (Same As: Ancef, Clfzol) MEDICATION WASTE Product Size: 1000 mg Product Wasted: ___ mg Inactive 07/08/2017 [facility] Lactated Ringers IV 1,000 mL 1,000 mL, Rate: 40 ml/hr, Infuse over: 25 hr, Route: IV, Dosing Weight 85.455 kg, Total Volume: 1,000, Start date: 07/08/17 12:46:00 [employer], Duration: 30 day, Stop date: 08/07/17 12:45:00 [employer], 2.03, m2 No Longer Active 07/08/2017 [facility] Ondansetron 4 mg, 2 mL, Route: IVP, Drug form: INJ, ONCE, Dosing Weight 85.455, kg, PRN Nausea & Vomiting, Start date: 07/08/17 12:09:00 CSTNotes: (Same as: Zofran) MEDICATION WASTE Product Size: 4 mg Product Wasted: ___ mg Inactive 07/08/2017 [facility] Promethazine 6.25 mg, 0.25 mL, Route: IVPB, Drug form: INJ, ONCE, Dosing Weight 85.455, kg, PRN Nausea & Vomiting, Start date: 07/08/17 12:09:00 CSTNotes: Do not give IV push. (Same as: Phenergan) Inactive 07/08/2017 [facility] Hydralazine 10 mg, 0.5 mL, Route: IVP, Drug form: INJ, Q20Min, Dosing Weight 85.455, kg, PRN Elevated BP, Start date: 07/08/17 12:09:00 [employer], Duration: 2 doses or times, Stop date: Limited # of timesNotes: (Same as: Apresoline) Push over 5 minutes Inactive 07/08/2017 [facility] Labetalol 10 mg, 2 mL, Route: IVP, Drug form: INJ, Q5Min, Dosing Weight 85.455, kg, PRN Elevated BP, Start date: 07/08/17 12:09:00 [employer], Duration: 5 doses or times, Stop date: Limited # of times Inactive 07/08/2017 [facility] Hydromorphone 0.5 mg, 0.25 mL, Route: IVP, Drug form: INJ, Q5Min, Dosing Weight 85.455, kg, PRN Pain Score 7-10, Start date: 07/08/17 12:09:00 [employer], Duration: 4 doses or times, Stop date: [...] Levofloxacin (Levaquin) 500 Mg Tablet Daily Active [facility] Losartan Potassium 50 Mg Tablet Daily Active [facility] Simvastatin 40 Mg Tablet Daily Active [facility] Tamsulosin Hcl (Flomax*) 0.4 Mg Cap Bedtime Active [facility] Trazodone Hcl 50 Mg Tablet Bedtime Active [facility] Atorvastatin Calcium 20 Mg Tablet Bedtime Active [facility] Carbinoxamine Maleate 4 Mg Tablet Every 8 Hours as needed for Allergy Active [facility] Oxycodone Hcl 20 Mg Tablet Twice A Day as needed for Moderate Pain (4-6) Active [facility] Prednisone 10 Mg Tab Daily Active [facility] Allergies, Adverse Reactions, Alerts Substance Category Reaction Severity Reaction type Status Date Reported Comments Source Immunizations Immunization Date Given Site Status Last Updated Comments Source Results Order Name Results Value Reference Range Date Interpretation Comments Source Blood leukocytes automated count (number/volume) 13.01 4.8 - 10.8 12/12/2018 [facility] Blood erythrocytes automated count (number/volume) 4.44 4.3 - 5.7 12/12/2018 [facility] Blood hemoglobin measurement (moles/volume) 13.0 14.0 - 18.0 12/12/2018 [facility] Automated blood hematocrit (volume fraction) 38.5 38.2 - 49.6 12/12/2018 [facility] Automated erythrocyte mean corpuscular volume 86.7 81 - 99 12/12/2018 [facility] Automated erythrocyte mean corpuscular hemoglobin (mass per erythrocyte) 29.3 28 - 32 12/12/2018 [facility] Automated erythrocyte mean corpuscular hemoglobin concentration measurement (mass/volume) 33.8 31 - 35 12/12/2018 [facility] RDW BldCo-Rto 13.9 11.7 - 14.4 12/12/2018 [facility] Automated blood platelet count (count/volume) 182 140 - 360 12/12/2018 [facility] Automated blood segmented neutrophil count as percentage of total leukocytes 69.4 38.7 - 80.0 12/12/2018 [facility] Automated blood lymphocyte count as percentage ot total leukocytes 21.1 18.0 - 39.1 12/12/2018 [facility] Automated blood monocyte count as percentage of total leukocytes 6.8 4.4 - 11.3 12/12/2018 [facility] Automated blood eosinophil count as percentage of total leukocytes 0.5 0.0 - 6.0 12/12/2018 [facility] Automated blood basophil count as percentage of total leukocytes 0.2 0.0 - 1.0 12/12/2018 [facility] IM GRANULOCYTES % 2.0 0.0 - 1.0 12/12/2018 [facility] Automated blood neutrophil count 9.0 2.1 - 6.9 12/12/2018 [facility] Blood lymphocytes count (number/volume) 2.7 1.0 - 3.2 12/12/2018 [facility] Blood monocytes automated count (number/volume) 0.9 0.2 - 0.8 12/12/2018 [facility] Automated blood eosinophil count 0.1 0.0 - 0.4 12/12/2018 [facility] Automated blood basophil count (count/volume) 0.0 0.0 - 0.1 12/12/2018 [facility] Absolute Immature Granulocyte (auto 0.26 0 - 0.1 12/12/2018 [facility] Serum or plasma sodium measurement (moles/volume) 137 136 - 145 12/12/2018 [facility] Serum or plasma potassium measurement (moles/volume) 4.2 3.5 - 5.1 12/12/2018 [facility] Serum or plasma chloride measurement (moles/volume) 103 98 - 107 12/12/2018 [facility] Serum or plasma carbon dioxide, total measurement (moles/volume) 28 22 - 29 12/12/2018 [facility] Serum or plasma anion gap 10.2 8 - 16 12/12/2018 [facility] Serum or plasma urea nitrogen measurement (mass/volume) 18 7 - 26 12/12/2018 [facility] Serum or plasma creatinine measurement (mass/volume) 0.83 0.72 - 1.25 12/12/2018 [facility] Serum or plasma urea nitrogen/creatinine mass ratio 22 6 - 25 12/12/2018 [facility] Estimated glomerular filtration rate (GFR) determination > 60 60 12/12/2018 [facility] Glucose measurement 77 74 - 118 12/12/2018 [facility] Serum or plasma calcium measurement (mass/volume) 9.6 8.4 - 10.2 12/12/2018 [facility] Procalcitonin (PCT) level 0.07 0.00 - 0.08 12/09/2018 [facility] Serum or plasma cyclic citrullinated peptide IgA+IgG antibody assay by immunoassay (units/volume) 4 0 - 19 12/09/2018 [facility] Serum or plasma rheumatoid factor measurement (units/volume) 10.7 0.0 - 13.9 12/09/2018 [facility] Erythrocyte sedimentation rate by Westergren method 23 0 - 13 12/08/2018 [facility] Serum or plasma C reactive protein measurement (mass/volume) 15.0 0.0 - 4.9 12/08/2018 [facility] Serum or plasma magnesium measurement (mass/volume) 2.0 1.3 - 2.1 10/31/2018 [facility] BNP Bld-mCnc 41.0 0 - 100 10/31/2018 [facility] Serum or plasma trough vancomycin level at trough (mass/volume) 13.2 5.0 - 10.0 10/27/2018 [facility] Prothrombin time (PT) in platelet poor plasma by coagulation assay 13.8 11.9 - 14.5 10/26/2018 [facility] INR in Platelet poor plasma by Coagulation assay 1.01 10/26/2018 [facility] Activated partial thromboplastin time (aPTT) in platelet poor plasma bycoagulation assay 32.6 23.8 - 35.5 10/26/2018 [facility] Serum or plasma total bilirubin measurement (mass/volume) 0.5 0.2 - 1.2 10/25/2018 [facility] Aspartate Amino Transf (AST/SGOT) 13 5 - 34 10/25/2018 [facility] Serum or plasma alanine aminotransferase measurement (enzymatic activity/volume) 14 0 - 55 10/25/2018 [facility] Serum or plasma protein measurement (mass/volume) 7.3 6.5 - 8.1 10/25/2018 [facility] Serum or plasma albumin measurement (mass/volume) 3.2 3.5 - 5.0 10/25/2018 [facility] Plasma globulin measurement (mass/volume) 4.1 2.3 - 3.5 10/25/2018 [facility] Serum or plasma albumin/globulin mass ratio 0.8 0.8 - 2.0 10/25/2018 [facility] Serum or plasma alkaline phosphatase measurement (enzymatic activity/volume) 65 40 - 150 10/25/2018 [facility] Urine color determination YELLOW YELLOW 10/25/2018 [facility] Urine clarity SL CLOUDY CLEAR 10/25/2018 [facility] Specific gravity of Urine by Test strip 1.030 1.010 - 1.025 10/25/2018 [facility] Urine pH measurement by automated test strip 6 5 - 7 10/25/2018 [facility] Urine leukocyte esterase detection by dipstick TRACE NEGATIVE 10/25/2018 [facility] Urine nitrite detection NEGATIVE NEGATIVE 10/25/2018 [facility] Urine protein measurement by test strip (mass/volume) 1+ NEGATIVE 10/25/2018 [facility] Urine glucose detection NEGATIVE NEGATIVE 10/25/2018 [facility] Urine ketones detection by automated test strip NEGATIVE NEGATIVE 10/25/2018 [facility] Urine urobilinogen measurement by test strip (mass/volume) 0.2 0.2 - 1 10/25/2018 [facility] Urine total bilirubin measurement (mass/volume) NEGATIVE NEGATIVE 10/25/2018 [facility] Urine erythrocytes detection 4+ NEGATIVE 10/25/2018 [facility] Automated urine sediment leukocyte count by microscopy (number/high power field) 0-5 0 - 5 10/25/2018 [facility] Erythrocytes detection in urine sediment by light microscopy 11-20 0 - 5 10/25/2018 [facility] Bacteria detection in urine sediment by light microscopy MODERATE NONE 10/25/2018 [facility] Epithelial cells detection in urine sediment by light microscopy NONE NONE 10/25/2018 [facility] Ext Lower limited non vascular US Ext [...] Nayana Avelar MD 10/21/18 17:13 FINAL REPORT [facility] Blood leukocytes automated count (number/volume) 13.84 4.8 - 10.8 07/07/2018 [facility] Blood erythrocytes automated count (number/volume) 4.74 4.3 - 5.7 07/07/2018 [facility] Blood hemoglobin measurement (moles/volume) 14.4 14.0 - 18.0 07/07/2018 [facility] Automated blood hematocrit (volume fraction) 42.4 38.2 - 49.6 07/07/2018 [facility] Automated erythrocyte mean corpuscular volume 89.5 81 - 99 07/07/2018 [facility] Automated erythrocyte mean corpuscular hemoglobin (mass per erythrocyte) 30.4 28 - 32 07/07/2018 [facility] Automated erythrocyte mean corpuscular hemoglobin concentration measurement (mass/volume) 34.0 31 - 35 07/07/2018 [facility] RDW BldCo-Rto 12.9 11.7 - 14.4 07/07/2018 [facility] Automated blood platelet count (count/volume) 218 140 - 360 07/07/2018 [facility] Automated blood segmented neutrophil count as percentage of total leukocytes 84.7 38.7 - 80.0 07/07/2018 [facility] Automated blood lymphocyte count as percentage ot total leukocytes 10.0 18.0 - 39.1 07/07/2018 [facility] Automated blood monocyte count as percentage of total leukocytes 4.4 4.4 - 11.3 07/07/2018 [facility] Automated blood eosinophil count as percentage of total leukocytes 0.1 0.0 - 6.0 07/07/2018 [facility] Automated blood basophil count as percentage of total leukocytes 0.1 0.0 - 1.0 07/07/2018 [facility] IM GRANULOCYTES % 0.7 0.0 - 1.0 07/07/2018 [facility] Automated blood neutrophil count 11.7 2.1 - 6.9 07/07/2018 [facility] Blood lymphocytes count (number/volume) 1.4 1.0 - 3.2 07/07/2018 [facility] Blood monocytes automated count (number/volume) 0.6 0.2 - 0.8 07/07/2018 [facility] Automated blood eosinophil count 0.0 0.0 - 0.4 07/07/2018 [facility] Automated blood basophil count (count/volume) 0.0 0.0 - 0.1 07/07/2018 [facility] Absolute Immature Granulocyte (auto 0.09 0 - 0.1 07/07/2018 [facility] Serum or plasma sodium measurement (moles/volume) 135 136 - 145 07/07/2018 [facility] Serum or plasma potassium measurement (moles/volume) 4.4 3.5 - 5.1 07/07/2018 [facility] Serum or plasma chloride measurement (moles/volume) 100 98 - 107 07/07/2018 [facility] Serum or plasma carbon dioxide, total measurement (moles/volume) 26 22 - 29 07/07/2018 [facility] Serum or plasma anion gap 13.4 8 - 16 07/07/2018 [facility] Serum or plasma urea nitrogen measurement (mass/volume) 14 7 - 26 07/07/2018 [facility] Serum or plasma creatinine measurement (mass/volume) 0.97 0.72 - 1.25 07/07/2018 [facility] Serum or plasma urea nitrogen/creatinine mass ratio 14 6 - 25 07/07/2018 [facility] Estimated glomerular filtration rate (GFR) determination > 60 60 07/07/2018 [facility] Glucose measurement 123 74 - 118 07/07/2018 [facility] Serum or plasma calcium measurement (mass/volume) 9.1 8.4 - 10.2 07/07/2018 [facility] Differential Total Cells Counted 100 07/04/2018 [facility] Manual blood neutrophils/100 leukocytes 48 40 - 74 07/04/2018 [facility] Manual blood lymphocytes/100 leukocytes 33 19 - 48 07/04/2018 [facility] Manual blood monocytes/100 leukocytes 9 3.4 - 9.0 07/04/2018 [facility] Manual blood eosinophil count as percentage of total leukocytes 2 0 - 7 07/04/2018 [facility] Manual blood metamyelocytes/100 leukocytes 2 0 - 0 07/04/2018 [facility] Manual blood myelocytes/100 leukocytes 1 0 - 0 07/04/2018 [facility] Blood lymphocytes variant count (number/volume) 5 07/04/2018 [facility] Blood platelets count by estimate (number/volume) ADEQUATE 07/04/2018 [facility] Platelet morphology NORMAL 07/04/2018 [facility] Blood anisocytosis detection by light microscopy SLIGHT 07/04/2018 [facility] RBC morphology NORMAL 07/04/2018 [facility] Prothrombin time (PT) in platelet poor plasma by coagulation assay 13.6 11.9 - 14.5 07/04/2018 [facility] INR in Platelet poor plasma by Coagulation assay 0.95 07/04/2018 [facility] Differential Total Cells Counted 100 07/04/2018 [facility] Manual blood neutrophils/100 leukocytes 48 40 - 74 07/04/2018 [facility] Manual blood lymphocytes/100 leukocytes 33 19 - 48 07/04/2018 [facility] Manual blood monocytes/100 leukocytes 9 3.4 - 9.0 07/04/2018 [facility] Manual blood eosinophil count as percentage of total leukocytes 2 0 - 7 07/04/2018 [facility] Manual blood metamyelocytes/100 leukocytes 2 0 - 0 07/04/2018 [facility] Manual blood myelocytes/100 leukocytes 1 0 - 0 07/04/2018 [facility] Blood lymphocytes variant count (number/volume) 5 07/04/2018 [facility] Blood platelets count by estimate (number/volume) ADEQUATE 07/04/2018 [facility] Platelet morphology NORMAL 07/04/2018 [facility] Blood anisocytosis detection by light microscopy SLIGHT 07/04/2018 [facility] RBC morphology NORMAL 07/04/2018 [facility] ELECTROLYTES AGAP 10.5 meq/L 10.0 - 20.0 [...] 3.7 - 10.4 07/06/2017 [facility] Bacterial urine culture Urine Culture [facility] Vital Signs Vital Sign Value Date Comments [...] Provider ADM Date DC Date Status Source [facility] [id number] Ayo Roque 07/08/2017 07/09/2017 [facility] Discharged Inpatient (obs) [id number] BINH SETH MD 07/06/2018 07/07/2018 [facility] [id number] KRISTA ROPER DO 08/18/2018 [facility] [id number] BINH SETH MD 09/30/2018 [facility] Discharged Inpatient [id number] INO SCHAFER MD 10/25/2018 10/31/2018 [facility] Discharged Recurring [id number] ZOIE DAI MD 11/29/2018 12/06/2018 [facility] Discharged Inpatient [id number] AGUEDA ENRIQUEZ MD 12/08/2018 12/13/2018 [facility] Procedures Procedure Code Date Perfomer Comments Source MRI joint extremity lower wo then w contrast [id number] 12/09/2018 [facility] Magnetic resonance imaging of lumbar spine without then with contrast [id number] 12/09/2018 [facility] Computed tomography of abdomen and pelvis with contrast [id number] 10/27/2018 [facility] Magnetic resonance imaging of cervical spine without then with contrast [id number] 10/27/2018 [facility] Magnetic resonance imaging of lumbar spine without then with contrast [id number] 10/27/2018 [facility] Magnetic resonance imaging of thoracic spine without then with contrast [id number] 10/27/2018 [facility] INSERTION OF INFUSION DEV INTO SUP VENA CAVA, PERC APPROACH [id number] 10/26/2018 [facility] MRI joint extremity lower wo then w contrast [id number] 10/25/2018 [facility] Computed tomography of abdomen and pelvis with contrast [id number] 09/30/2018 [facility] Computed tomography of abdomen and pelvis with contrast [id number] 08/18/2018 [facility] Photoselective vaporization of prostate (PVP) with 532 nm laser [id number] 07/06/2018 [facility] LASER SURGERY OF PROSTATE [id number] 07/06/2018 [facility] Cystoscopy and removal of calculus of bladder [id number] [facility] Rotator cuff repair<sup>1</sup> [id number] x 2, [facility]
[2019-01-02] MEDS ORDERED: KETOROLAC TROMETHAMINE 30 MG/ML VIAL IV STA (02:23)
[2019-01-02] MEDS ORDERED: BACLOFEN 10 MG TAB PO ONE (02:30)
[2019-01-02] MEDS ORDERED: KETOROLAC TROMETHAMINE 30 MG/ML VIAL IV ONE (02:30)
[2019-01-02 02:34] LABS: BASOPHILS % 0.2 % (0.0-1.0); EOSINOPHILS % 0.3 % (0.0-6.0); HEMATOCRIT 36.8 % (38.2-49.6); HEMOGLOBIN 12.4 g/dL (14.0-18.0); LYMPHOCYTES # (AUTO) 1.6 (1.0-3.2); LYMPHOCYTES % 24.5 % (18.0-39.1); MEAN CORPUSCULAR HEMOGLOBIN 29.5 pg (28-32); MEAN CORPUSCULAR HGB CONC 33.7 g/dL (31-35); MEAN CORPUSCULAR VOLUME 87.6 fL (81-99); MONOCYTES # (AUTO) 0.4 (0.2-0.8); MONOCYTES % 6.3 % (4.4-11.3); NEUTROPHILS # (AUTO) 4.1 (2.1-6.9); NEUTROPHILS % 64.8 % (38.7-80.0); PLATELET COUNT 196 x10e3/uL (140-360); RED CELL DISTRIBUTION WIDTH 15.2 % (11.7-14.4)
[2019-01-02 02:35] LABS: BILIRUBIN,URINE NEGATIVE (NEGATIVE); CLARITY,URINE SL CLOUDY (CLEAR); COLOR,URINE YELLOW (YELLOW); KETONES,URINE NEGATIVE (NEGATIVE); LEUKOCYTE ESTERASE ,URINE NEGATIVE (NEGATIVE); NITRITE,URINE NEGATIVE (NEGATIVE); PROTEIN,URINE DIPSTICK NEGATIVE (NEGATIVE); URINE UROBILINOGEN 0.2 mg/dL (0.2 - 1)
[2019-01-02 02:43] LABS: WBC,URINE (MAN) 0-5 /HPF (0-5)
[2019-01-02 02:44] LABS: AMORPHOUS SEDIMENT,URINE FEW (FEW); EPITHELIAL CELLS,URINE FEW /LPF; RBC,URINE 0-5 /HPF (0-5)
[2019-01-02 02:50] LABS: ALANINE AMINOTRANSFERASE 21 IU/L (0-55); ALBUMIN 3.2 g/dL (3.5-5.0); ALBUMIN/GLOBULIN RATIO 1.1 (0.8-2.0); ALKALINE PHOSPHATASE 128 IU/L (40-150); ANION GAP 13.2 mmol/L (8-16); BLOOD UREA NITROGEN 28 mg/dL (7-26); BUN/CREATININE RATIO 27 (6-25); CALCIUM 9.5 mg/dL (8.4-10.2); CARBON DIOXIDE 26 mmol/L (22-29); CHLORIDE 107 mmol/L (98-107); CREATININE, SERUM 1.02 mg/dL (0.72-1.25); EST GLOMERULAR FILTRATION RATE > 60 ML/MIN (60-); GLUCOSE 100 mg/dL (74-118); POTASSIUM 4.2 mmol/L (3.5-5.1); SODIUM 142 mmol/L (136-145)
--- NOTE | 2019-01-02 03:16 | Diagnostic Imaging Report ---
CT Abdomen and Pelvis without contrast INDICATION: Left flank pain TECHNIQUE: Thin collimation axial images obtained from the diaphragm to the level of the pubic symphysis without nonionic intravenous contrast. Dose reduction techniques used: Automated exposure control, adjustment of the mAs and/or kVp according to patient size, standardized low-dose protocol, and/or iterative reconstruction technique. RADIATION DOSE: Total DLP: 454.19 mGy*cm Estimated effective dose: (DLP x 0.015 x size factor) mSv CTDIvol has been reviewed. It is below the limits set by the Radiation Protocol Committee (RPC). COMPARISON: CT abdomen/pelvis 10/27/2018. ABDOMEN FINDINGS: Lung Bases: Bibasilar atelectasis. The visualized portion of the mediastinum is normal. Liver: Normal in attenuation without mass. Gallbladder: Present and contracted. No ductal dilatation. Pancreas: Mild fatty atrophy. No mass or ductal dilatation. Spleen: Normal size without mass. Adrenal Glands: No evidence for mass. Kidneys: Right: Punctate calculus in the lower pole. Cyst in the lateral interpolar region is stable measuring 5.6 cm. No hydronephrosis Left: Edematous with mild perinephric inflammation. There are multiple intrarenal calculi measuring up to 11 mm. No cortical mass. The collecting system is distended. Lymph Nodes: No enlarged abdominal or retroperitoneal lymph nodes. Aorta: Tortuous, maximum aortic diameter is 3.5 cm. Calcifications are present throughout PELVIS FINDINGS: Bowel: Stomach: Distended with food. Small Bowel: Normal in caliber with normal wall thickness. Large Bowel: Mild burden of diverticulosis. No associated inflammation.. Appendix: Normal. Bladder: Under distended. No intraluminal calculus. The prostate gland contains calcifications in the transition zone. Ureters: Left ureter is distended to the distal ureter. There are 2 calculi in the distal ureter, the larger measuring 7 mm. The smaller calculus measures 4 mm. The right ureter is normal in diameter throughout its course without calculus. Peritoneum/retroperitoneum: No free fluid or fluid collection. Haziness of the small bowel mesentery is stable. Bones: No suspicious focal osseous lesions. Soft tissues: Fat-containing umbilical hernia has an aperture measuring 10 mm. IMPRESSION: 1. Calculi in the distal left ureter with mild hydroureteronephrosis. 2. Bilateral intrarenal calculi, left larger than right. 3. Stable right renal cyst. 4. 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 Signed by: Dr. Raffaele Perez MD on 01/02/2019 3:13 AM
[2019-01-02] MEDS ORDERED: HYDROMORPHONE 1MG/1ML INJ IV PRN ×2 (03:45→12:00)
[2019-01-02] MEDS ORDERED: ONDANSETRON HCL INJ 2MG/ML 2ML 2 MG/ML VIAL IV PRN (03:45)
--- OUTSIDE RECORDS SUMMARY | 2019-01-02 03:47 | XMS REPORT | Clinical Summary ---
Author Author [facility] Address Unknown Phone Unavailable Care Team Providers Care Rim Turning Machine Operator Name Role Phone Carlos Peña [...] tract infection with hematuria, site unspecified 07/07/2018 [facility] General Internal Medicine - Encounter 07/12/2018 Ruben [...] Taken Vital Sign Reading 10/07/2018 4:04 PM FOLDER GLUER OPERATOR Blood Pressure 130/74 10/07/2018 4:04 PM FOLDER GLUER OPERATOR Pulse 62 10/07/2018 4:04 PM FOLDER GLUER OPERATOR Temperature 36.1 C (97 F) 10/07/2018 4:04 PM FOLDER GLUER OPERATOR Respiratory Rate 19 10/07/2018 4:04 PM FOLDER GLUER OPERATOR Oxygen Saturation 95% - Inhaled Oxygen - Concentration 10/03/2018 12:17 PM FOLDER GLUER OPERATOR Weight 76.2 kg (168 lb) 10/03/2018 12:17 PM FOLDER GLUER OPERATOR Height 170.2 cm (5' 7") 10/03/2018 12:17 PM FOLDER GLUER OPERATOR Body Mass Index 26.31 Plan of Treatment Health Maintenance Due Date Last Done Comments COLON CANCER SCREENING 12/08/1995 SHINGLES VACCINES (#1) 12/08/1995 PNEUMOCOCCAL 2010 POLYSACCHARIDE VACCINE AGE 65 AND OVER INFLUENZA VACCINE 03/09/2019 07/12/2018 65+ PNEUMOCOCCAL VACCINE 07/12/2019 07/12/2018 (2 of 2 - PPSV23) Procedures Comments Procedure Name Priority Date/Time Associated Diagnosis NM BONE SCAN WHOLE BODY Routine 10/07/2018 3:51 PM FOLDER GLUER OPERATOR XR HIP 2-3 VIEWS RIGHT Routine 10/07/2018 1:32 PM FOLDER GLUER OPERATOR US DUPLEX VENOUS LOWER Routine 10/07/2018 EXTREMITY BILATERAL 10:37 AM FOLDER GLUER OPERATOR MRI PELVIS W WO CONTRAST Routine 10/06/2018 5:[address] ABDOMEN PELVIS W Routine 10/06/2018 CONTRAST 5:35 PM FOLDER GLUER OPERATOR ESTIMATED GFR Routine 10/06/2018 5:53 AM FOLDER GLUER OPERATOR BASIC METABOLIC PANEL Routine 10/06/2018 5:53 AM FOLDER GLUER OPERATOR HC COMPLETE BLD COUNT Routine 10/06/2018 W/AUTO DIFF 5:53 AM FOLDER GLUER OPERATOR ESTIMATED GFR Routine 10/05/2018 5:18 AM FOLDER GLUER OPERATOR BASIC METABOLIC PANEL Routine 10/05/2018 5:18 AM FOLDER GLUER OPERATOR HC COMPLETE BLD COUNT Routine 10/05/2018 W/AUTO DIFF 5:18 AM FOLDER GLUER OPERATOR SURGICAL PATHOLOGY Routine 10/04/2018 REQUEST 1:48 PM FOLDER GLUER OPERATOR AK AN ELECTIVE Routine 10/04/2018 SUPRAGLOTTIC AIRWAY 11:07 AM FOLDER GLUER OPERATOR Procedure Note - Bhavik Burt CRNA - 10/04/2018 11:07 AM FOLDER GLUER OPERATOR Airway Date/Time: 10/04/2018 11:02 AM Performed by: [...] 1 ESTIMATED GFR Routine 10/04/2018 6:13 AM FOLDER GLUER OPERATOR COMPREHENSIVE METABOLIC Routine 10/04/2018 PANEL 6:13 AM FOLDER GLUER OPERATOR PROTHROMBIN TIME WITH INR Routine 10/04/2018 6:13 AM FOLDER GLUER OPERATOR HC COMPLETE BLD COUNT Routine 10/04/2018 W/AUTO DIFF 6:13 AM FOLDER GLUER OPERATOR URINE CULTURE STAT 10/03/2018 6:01 PM FOLDER GLUER OPERATOR GRAM STAIN STAT 10/03/2018 6:01 PM FOLDER GLUER OPERATOR URINALYSIS SCREEN AND STAT 10/03/2018 MICROSCOPY, WITH REFLEX 5:27 PM FOLDER GLUER OPERATOR TO CULTURE XR CHEST 1 VW PORTABLE STAT 10/03/2018 3:42 PM FOLDER GLUER OPERATOR TYPE AND SCREEN Routine 10/03/2018 3:30 PM FOLDER GLUER OPERATOR PARTIAL THROMBOPLASTIN STAT 10/03/2018 TIME (PTT) 3:30 PM FOLDER GLUER OPERATOR PROTHROMBIN TIME WITH INR STAT 10/03/2018 3:30 PM FOLDER GLUER OPERATOR HC COMPLETE BLD COUNT STAT 10/03/2018 W/AUTO DIFF 3:30 PM FOLDER GLUER OPERATOR ECG ED PRELIMINARY Routine 10/03/2018 INTERPRETATION 3:08 PM FOLDER GLUER OPERATOR MRI LUMBAR SPINE WO STAT 10/03/2018 CONTRAST 3:08 PM FOLDER GLUER OPERATOR ECG 12-LEAD STAT 10/03/2018 1:54 PM FOLDER GLUER OPERATOR POC GLUCOSE Routine 07/11/2018 11:40 AM FOLDER GLUER OPERATOR ESTIMATED GFR Routine 07/11/2018 8:40 AM FOLDER GLUER OPERATOR COMPREHENSIVE METABOLIC Routine 07/11/2018 PANEL 8:40 AM FOLDER GLUER OPERATOR HC COMPLETE BLD COUNT Routine 07/11/2018 W/AUTO DIFF 8:40 AM FOLDER GLUER OPERATOR ECHOCARDIOGRAM 2D Routine 07/09/2018 COMPLETE W MMODE SPECTRAL 8:57 PM FOLDER GLUER OPERATOR COLOR DOPPLER ([id number]) ARTERIAL BLOOD GAS STAT 07/09/2018 7:29 PM FOLDER GLUER OPERATOR ECG 12-LEAD STAT 07/09/2018 7:09 PM FOLDER GLUER OPERATOR BLOOD CULTURE, AEROBIC & Routine 07/09/2018 ANAEROBIC 7:03 PM FOLDER GLUER OPERATOR C-REACTIVE PROTEIN STAT 07/09/2018 6:59 PM FOLDER GLUER OPERATOR ESTIMATED GFR STAT 07/09/2018 6:59 PM FOLDER GLUER OPERATOR LIPASE LEVEL STAT 07/09/2018 6:59 PM FOLDER GLUER OPERATOR PHOSPHORUS LEVEL STAT 07/09/2018 6:59 PM FOLDER GLUER OPERATOR PROCALCITONIN STAT 07/09/2018 6:59 PM FOLDER GLUER OPERATOR PROTHROMBIN TIME WITH INR STAT 07/09/2018 6:59 PM FOLDER GLUER OPERATOR PARTIAL THROMBOPLASTIN STAT 07/09/2018 TIME (PTT) 6:59 PM FOLDER GLUER OPERATOR MAGNESIUM LEVEL STAT 07/09/2018 6:59 PM FOLDER GLUER OPERATOR CREATINE KINASE, TOTAL STAT 07/09/2018 (CPK) 6:59 PM FOLDER GLUER OPERATOR TROPONIN STAT 07/09/2018 6:59 PM FOLDER GLUER OPERATOR THYROID STIMULATING STAT 07/09/2018 HORMONE 6:59 PM FOLDER GLUER OPERATOR T4, FREE STAT 07/09/2018 6:59 PM FOLDER GLUER OPERATOR LACTIC ACID LEVEL STAT 07/09/2018 6:59 PM FOLDER GLUER OPERATOR IONIZED CALCIUM STAT 07/09/2018 6:59 PM FOLDER GLUER OPERATOR COMPREHENSIVE METABOLIC STAT 07/09/2018 PANEL 6:59 PM FOLDER GLUER OPERATOR HC COMPLETE BLD COUNT STAT 07/09/2018 W/AUTO DIFF 6:59 PM FOLDER GLUER OPERATOR B NATRIURETIC PEPTIDE STAT 07/09/2018 6:59 PM FOLDER GLUER OPERATOR BLOOD CULTURE, AEROBIC & Routine 07/09/2018 ANAEROBIC 6:59 PM FOLDER GLUER OPERATOR XR CHEST 1 VW PORTABLE STAT 07/09/2018 6:52 PM FOLDER GLUER OPERATOR POC GLUCOSE Routine 07/09/2018 6:06 PM FOLDER GLUER OPERATOR GRAM STAIN Routine 07/08/2018 5:10 PM FOLDER GLUER OPERATOR RESPIRATORY CULTURE Routine 07/08/2018 5:10 [address] ABDOMEN PELVIS W WO STAT 07/08/2018 CONTRAST 10:28 AM FOLDER GLUER OPERATOR ESTIMATED GFR Routine 07/08/2018 9:31 AM FOLDER GLUER OPERATOR BASIC METABOLIC PANEL Routine 07/08/2018 9:31 AM FOLDER GLUER OPERATOR HC COMPLETE BLD COUNT Routine 07/08/2018 W/AUTO DIFF 9:31 AM FOLDER GLUER OPERATOR VENOUS BLOOD GAS Routine 07/08/2018 6:14 AM FOLDER GLUER OPERATOR ECG 12-LEAD STAT 07/08/2018 5:55 AM FOLDER GLUER OPERATOR TROPONIN Timed 07/08/2018 3:44 AM FOLDER GLUER OPERATOR LACTIC ACID LEVEL, SEPSIS Timed 07/08/2018 - NOW AND REPEAT 2X EVERY 3:44 AM FOLDER GLUER OPERATOR [address] ANGIOGRAM PE CHEST STAT 07/08/2018 12:24 AM FOLDER GLUER OPERATOR TROPONIN Timed 07/08/2018 12:19 AM FOLDER GLUER OPERATOR LACTIC ACID LEVEL, SEPSIS Timed 07/08/2018 - NOW AND REPEAT 2X EVERY 12:19 AM FOLDER GLUER OPERATOR 3 HOURS ECG 12-LEAD STAT 07/08/2018 12:02 AM FOLDER GLUER OPERATOR CONSULT TO SEPSIS Routine 07/07/2018 Sepsis, due to RESPONSE TEAM 9:38 PM FOLDER GLUER OPERATOR unspecified organism (HCC) BLOOD CULTURE, AEROBIC & Routine 07/07/2018 ANAEROBIC 8:51 PM FOLDER GLUER OPERATOR ECG ED PRELIMINARY Routine 07/07/2018 INTERPRETATION 8:49 PM FOLDER GLUER OPERATOR AK CRITICAL CARE, E/M Routine 07/07/2018 30-74 MINUTES 8:49 PM FOLDER GLUER OPERATOR URINALYSIS SCREEN AND STAT 07/07/2018 MICROSCOPY, WITH REFLEX 8:43 PM FOLDER GLUER OPERATOR TO CULTURE GRAM STAIN STAT 07/07/2018 8:43 PM FOLDER GLUER OPERATOR URINE CULTURE STAT 07/07/2018 8:43 PM FOLDER GLUER OPERATOR ESTIMATED GFR STAT 07/07/2018 8:38 PM FOLDER GLUER OPERATOR B NATRIURETIC PEPTIDE STAT 07/07/2018 8:38 PM FOLDER GLUER OPERATOR TROPONIN STAT 07/07/2018 8:38 PM FOLDER GLUER OPERATOR LIPASE LEVEL STAT 07/07/2018 8:38 PM FOLDER GLUER OPERATOR LACTIC ACID LEVEL, SEPSIS STAT 07/07/2018 - NOW AND REPEAT 2X EVERY 8:38 PM FOLDER GLUER OPERATOR 3 HOURS HEPATIC FUNCTION PANEL STAT 07/07/2018 8:38 PM FOLDER GLUER OPERATOR BASIC METABOLIC PANEL STAT 07/07/2018 8:38 PM FOLDER GLUER OPERATOR HC COMPLETE BLD COUNT STAT 07/07/2018 W/AUTO DIFF 8:38 PM FOLDER GLUER OPERATOR ECG 12-LEAD STAT 07/07/2018 8:37 PM FOLDER GLUER OPERATOR BLOOD CULTURE, AEROBIC & Routine 07/07/2018 ANAEROBIC 8:35 PM FOLDER GLUER OPERATOR XR CHEST 1 VW PORTABLE STAT 07/07/2018 8:32 PM FOLDER GLUER OPERATOR FL PYELOGRAM RETROGRADE Routine 02/15/2018 2:31 PM CDT ANESTHESIA INTUBATION Routine 02/15/2018 1:02 PM CDT Procedure Note - Angel Alvarez, LUPIS - 02/15/2018 1:02 PM CDT Airway Performed by: ANGEL ALVAREZ Authorized by: MAINOR MIMS ELECTIVE Routine 02/15/2018 SUPRAGLOTTIC AIRWAY 12:57 PM CDT Procedure Note - Angel Alvarez, BOARDER HAND - 02/15/2018 12:57 PM CDT Airway Date/Time: [...] Bone Scan Whole Body (10/07/2018 3:51 PM FOLDER GLUER OPERATOR) Specimen Narrative Performed At Procedure:NM BONE SCAN [...] seen IMPRESSION: Negative whole-body bone scan exam. [id number] Procedure Note Interface, Radiology Results Incoming - 10/07/2018 4:52 PM FOLDER GLUER OPERATOR Procedure:NM BONE SCAN WHOLE BODY REFERRING PHYSICIAN:RUBEN [...] seen IMPRESSION: Negative whole-body bone scan exam. [id number] Performing Organization Address City/State/Zipcode Phone Number [facility] [address] [place] [address] * XR Hip 2-3 View Right (10/07/2018 1:32 PM FOLDER GLUER OPERATOR) Specimen Narrative Performed At EXAMINATION:XR HIP 2-3 VIEWS RIGHT [facility]:hip pain COMPARISON:None. TECHNIQUE: 3 views [...] Negative for fracture or focal bony lesion. [id number] Procedure Note Interface, Radiology Results Incoming - 10/07/2018 3:51 PM FOLDER GLUER OPERATOR EXAMINATION: XR HIP 2-3 VIEWS RIGHT CLINICAL [...] Negative for fracture or focal bony lesion. [id number] Performing Organization Address [facility] Phone Number [facility] [address] [place] [address] * Us duplex venous lower extremity (10/07/2018 10:37 AM FOLDER GLUER OPERATOR) Specimen Narrative Performed At EXAMINATION:US DUPLEX VENOUS [...] is no evidence of deep venous thrombosis. [facility]-[id number] Procedure Note Interface, Radiology Results Incoming - 10/07/2018 10:45 AM FOLDER GLUER OPERATOR EXAMINATION: US DUPLEX VENOUS LOWER EXTREMITY BILATERAL [...] is no evidence of deep venous thrombosis. [facility]-[id number] Performing Organization Address [facility] Phone Number [facility] [address] [place] [address] * MRI Pelvis W Wo Contrast (10/06/2018 5:50 PM FOLDER GLUER OPERATOR) Specimen Narrative Performed At [facility] EXAMINATION:MRI PELVIS [...] evidence of abscess formation or inflammatory changes. [id number] Procedure Note Interface, Radiology Results Incoming - 10/06/2018 6:35 PM FOLDER GLUER OPERATOR EXAMINATION: MRI PELVIS W WO CONTRAST CLINICAL [...] evidence of abscess formation or inflammatory changes. [id number] Performing Organization Address City/State/Zipcode Phone Number [facility] [address] [place] [address] * CT Abdomen Pelvis W Contrast (10/06/2018 5:35 PM FOLDER GLUER OPERATOR) Specimen Narrative Performed At EXAMINATION:CT ABDOMEN PELVIS [...] with maximum diameter of 3.4 cm, unchanged. [facility]-[id number] Procedure Note [facility], Radiology Results Incoming - 10/06/2018 5:55 PM FOLDER GLUER OPERATOR EXAMINATION: CT ABDOMEN PELVIS W CONTRAST CLINICAL [...] with maximum diameter of 3.4 cm, unchanged. [facility]-[id number] Performing Organization Address City/[facility]/Zipcode Phone Number [facility] [address] [place] [address] * Estimated GFR (10/06/2018 5:53 AM FOLDER GLUER OPERATOR) Only the most recent of 7 results within the time period is included. Pathologist [facility] Estimated GFR 85 mL/min/1.73 m2 [facility] Comment: [facility] G1 >=90 Normal or high G2 60-89Mildly decreased C4p94-87 Mildly to moderately decreased I5p11-02 Moderately to severely decreased G4 15-29Severely decreased G5 <15Kidney failure The eGFR was calculated using the Chronic Kidney Disease Epidemiology Collaboration (CKD-EPI) equation. Interpretation is based on recommendations of the National Kidney Foundation-Kidney Disease Outcomes Quality Initiative (NKF-KDOQI) published in 2014. Specimen Plasma specimen Performing Organization Address City/[facility]/Zipcode Phone Number [facility] DEPARTMENT OF [address] [place] [address] PATHOLOGY AND GENOMIC MEDICINE [address] * CBC with platelet and differential (10/06/2018 5:53 AM FOLDER GLUER OPERATOR) Only the most recent of 9 results within the time period is included. WBC 6.1 4.2 - 11.0 k/uL [facility] RBC 4.07 4.04 - 5.86 m/uL [facility] HGB 12.0 (L) 13.0 - 17.3 g/dL [facility] HCT 37.8 34.0 - 45.0 % [facility] MCV 92.9 80.0 - 98.[address] [facility] MCH 29.5 27.0 - 34.[address] [facility] MCHC 31.7 31.5 - 36.5 g/dL [facility] RDW - SD 46.1 37.0 - 51.[address] [facility] MPV 9.6 7.4 - 10.[address] [facility] Platelet count 238 150 - 400 k/uL [facility] Nucleated RBC 0.00 /[address] [facility] Neutrophils 52.7 36.0 - 66.0 % [facility] Lymphocytes 32.8 24.0 - 44.0 % [facility] Monocytes 10.3 (H) 0.0 - 6.0 % [facility] Eosinophils 2.6 0.0 - 6.0 % [facility] Basophils 0.5 0.0 - 1.2 % [facility] Immature 1.1 (H) 0.0 - 1.0 % [facility] granulocytes [facility] Specimen Blood Performing Organization Address City/State/Zipcode Phone Number [facility] OF [address] [place] [address] PATHOLOGY AND GENOMIC MEDICINE [address] * Basic metabolic panel (10/06/2018 5:53 AM FOLDER GLUER OPERATOR) Only the most recent of 6 results within the time period is included. Sodium 141 135 - 150 mEq/L [facility] Potassium 4.1 3.5 - 5.0 mEq/L [facility] Chloride 104 98 - 112 mEq/L [facility] CO2 27 24 - 31 mmol/L [facility] Anion gap 10@ANIO 7 - 15 mEq/L [facility] BUN 14 7 - 18 mg/dL [facility] Creatinine 0.90 0.70 - 1.20 mg/dL [facility] Glucose 98 65 - 100 mg/dL [facility] Calcium 8.6 (L) 8.8 - 10.2 mg/dL [facility] Specimen Plasma specimen Performing Organization Address City/State/Zipcode Phone Number [facility] OF [address] [place] [address] PATHOLOGY AND GENOMIC MEDICINE [place] [id number] [address] * Surgical pathology request (10/04/2018 1:48 PM FOLDER GLUER OPERATOR) [facility] OF PATHOLOGY AND GENOMIC MEDICINE Surgical See link below for PDF Lab [facility] pathology Report OF PATHOLOGY report AND GENOMIC MEDICINE Result status This is Final Report for [facility] [id number] OF PATHOLOGY AND GENOMIC MEDICINE Specimen Performing Organization Address City/[facility] Phone Number [facility] DE[facility] OF [address] [place] [address] PATHOLOGY AND GENOMIC MEDICINE * Prothrombin time with INR (10/04/2018 6:13 AM FOLDER GLUER OPERATOR) Only the most recent of 4 results within the time period is included. Pathologist [facility] Prothrombin 13.9 11.5 - 14.5 sec [facility] INR 1.10 [facility] Comment: [facility] For patients on anticoagulant DISHA therapy, reference ranges HOSPITAL below: Indication: INR Value Treatment of Venous Thrombosis, 2.0-3.0 pulmonary emboli, or prophylaxis of a venous thrombosis, or systemic emboli. High dose, high risk patients 3.0-4.5 with mechanical valves. NOTE:INR values over 3.0 are sometimes associated with gastrointestinal hemorrhage, especially values over 4.0. Specimen Blood Performing Organization Address City/[facility]/Zipcode Phone Number [facility] OF [address] [facility]. [place] [id number] PATHOLOGY AND GENOMIC MEDICINE [place] [id number] [address] * Comprehensive metabolic panel (10/04/2018 6:13 AM FOLDER GLUER OPERATOR) Only the most recent of 3 results within the time period is included. [facility] Sodium 141 135 - 150 mEq/L [facility] Potassium 4.2 3.5 - 5.0 mEq/L [facility] Chloride 107 98 - 112 mEq/L [facility] CO2 24 24 - 31 mmol/L [facility] Anion gap 10@ANIO 7 - 15 mEq/L [facility] BUN 12 7 - 18 mg/dL [facility] Creatinine 0.90 0.70 - 1.20 mg/dL [facility] Glucose 117 (H) 65 - 100 mg/dL [facility] Calcium 8.7 (L) 8.8 - 10.2 mg/dL [facility] Protein 6.4 6.3 - 8.3 g/dL [facility] Albumin 2.9 (L) 3.5 - 5.0 g/dL [facility] A/G ratio 0.8 0.7 - 3.8 [facility] Alkaline 58 0 - 129 U/L [facility] phosphatase [facility] AST 18 10 - 50 U/L [facility] ALT 19 5 - 50 U/L [facility] Total bilirubin 0.4 0.2 - 1.2 mg/dL [facility] Specimen Plasma specimen Performing Organization Address City/[facility] Phone Number [facility] [address] [place] [address] PATHOLOGY AND GENOMIC MEDICINE [facility] [address] * Gram stain (10/03/2018 6:01 PM FOLDER GLUER OPERATOR) Only the most recent of 3 results within the time period is included. Gram stain Few WBC's [facility] result No organisms seen [facility] Comment: HOSPITAL Specimen Information Specimen Source: Urine Specimen Site: Clean catch Specimen Urine Performing Organization Address City/[facility]/Zipcode Phone Number [facility] DEPARTMENT [address] [place] [address] PATHOLOGY AND GENOMIC MEDICINE [id number] [place] [address] * Urine culture (10/03/2018 6:01 PM FOLDER GLUER OPERATOR) Only the most recent of 2 results within the time period is included. Urine culture No growth after 24 hours [facility] isolate Comment: [facility] Specimen Information HOSPITAL Specimen Source: Urine Specimen Site: Clean catch Specimen Urine Performing Organization Address City/State/Zipcode Phone Number [facility] DEPARTMENT OF [address] [place] [address] PATHOLOGY AND GENOMIC MEDICINE [place] [phone] [place] [address] [facility] * Urinalysis screen and microscopy, with reflex to culture (10/03/2018 5:27 PM FOLDER GLUER OPERATOR) Only the most recent of 2 results within the time period is included. Specimen site Clean catch [facility] Color, UA Yellow [facility] Appearance, UA Clear [facility] Specific 1.008 1.001 - 1.035 [facility] gravity, [facility] pH, UA 7.0 5.0 - 8.5 [facility] Protein, UA Negative Negative [facility] Glucose, UA Negative Negative [facility] Ketones, UA Negative Negative [facility] Bilirubin, UA Negative Negative [facility] Blood, UA Negative Negative [facility] Nitrite, UA Negative Negative [facility] Urobilinogen, Negative <2.0 [facility] Leukocyte Large (A) Negative [facility] esterase, [facility] Epithelial Few /HPF [facility] cells, UA [facility] WBC, UA 76 (H) 0 - 1 /HPF [facility] RBC, UA 9 (H) 0 - 5 /HPF [facility] Bacteria, UA None seen None seen [facility] Yeast, UA Few (A) [facility] Yeast with None seen [facility] pseudohyphae, [facility] Specimen Urine Performing Organization Address City/State/Zipcode Phone Number [facility] [address] [place] [address] PATHOLOGY AND GENOMIC MEDICINE [facility] [address] [place], [place] [phone] [place] [address] * XR Chest 1 Vw Portable (10/03/2018 3:42 PM FOLDER GLUER OPERATOR) Only the most recent of 3 results within the time period is included. Specimen Narrative Performed At EXAMINATION:XR CHEST 1 VW PORTABLE HM [facility] CLINICAL HISTORY:preop COMPARISON:July 09, 2018 IMPRESSION: Lines: None Lungs and pleura: Bibasilar subsegmental atelectasis versus scarring. No consolidations. No pleural effusion or pneumothorax. Heart and mediastinum: Stable appearance of cardiomediastinal silhouette. Bones: No suspicious osseous lesions. [facility][id number] Procedure Note Hm Interface, Radiology Results Incoming - 10/03/2018 3:49 PM FOLDER GLUER OPERATOR EXAMINATION: XR CHEST 1 VW PORTABLE CLINICAL HISTORY: preop COMPARISON: July 09, 2018 IMPRESSION: Lines: None Lungs and pleura: Bibasilar subsegmental atelectasis versus scarring. No consolidations. No pleural effusion or pneumothorax. Heart and mediastinum: Stable appearance of cardiomediastinal silhouette. Bones: No suspicious osseous lesions. [id number] Performing Organization Address [facility] Phone Number [facility] [address] [place] [address] * Partial thromboplastin time, activated (10/03/2018 3:30 PM FOLDER GLUER OPERATOR) Only the most recent of 2 results within the time period is included. PTT 27.5 23.0 - 36.0 sec [facility] Comment: [facility] PTT therapeutic range for [facility] unfractionated heparin is HOSPITAL 61.0-112.0 seconds which corresponds to Anti-Xa 0.3-0.7 U/ml. Note:Change in Panic Value The PTT Panic Value is changing from 110 sec. to 100 sec. due to new instrumentation and reagents. Correlation studies have been performed to validate this result. Specimen Blood Performing Organization Address City/[facility] Phone Number [facility] OF [address] [place] [address] PATHOLOGY AND GENOMIC MEDICINE [facility] [address] [place], [place] [phone] [place] [address] * Type and screen (10/03/2018 3:30 PM FOLDER GLUER OPERATOR) ABO grouping A [facility] Rh type POS [facility] Antibody screen NEG [facility] (gel) [facility] Specimen Blood Performing Organization Address City/[facility]/Zipcode Phone Number [facility] OF [address] [place] [address] PATHOLOGY AND GENOMIC MEDICINE [place] [phone] [place] [address] [facility] * ECG ED Preliminary Interpretation - Not an Order (10/03/2018 3:08 PM FOLDER GLUER OPERATOR) Only the most recent of 2 results within the time period is included. Narrative Performed At Violet Newsome DO 10/04/20188:21 PM ECG ED Preliminary Interpretation - Not an Order Performed by: Violet Newsome DO Authorized by: Violet Newsome DO ECG reviewed by ED Physician in the absence of a test fixture designer: yes Interpretation: Interpretation: abnormal Rate: ECG rate:59 ECG rate assessment: bradycardic Rhythm: Rhythm: sinus bradycardia Ectopy: Ectopy: none QRS: QRS axis:Left QRS intervals:Normal Conduction: Conduction: normal ST segments: ST segments:Normal T waves: T waves: normal * MRI Lumbar Spine Wo Contrast (10/03/2018 3:08 PM FOLDER GLUER OPERATOR) Specimen Narrative Performed At [facility] EXAMINATION: [...] the lower lumbar spine without significant stenosis. [facility]-[id number] Procedure Note Hm Interface, Radiology Results Incoming - 10/03/2018 3:21 PM FOLDER GLUER OPERATOR EXAMINATION: MRI LUMBAR SPINE WO CONTRAST CLINICAL [...] the lower lumbar spine without significant stenosis. [facility]-[id number] Performing Organization Address [facility] Phone Number [facility] [address] [place] [address] * ECG 12 lead (10/03/2018 1:54 PM FOLDER GLUER OPERATOR) Only the most recent of 5 results within the time period is included. Pathologist [facility] Ventricular 59 [facility] MUSE rate Atrial rate 59 [facility] MUSE AK interval 164 [facility] MUSE QRSD interval 142 [facility] MUSE QT interval 452 [facility] MUSE QTC interval 447 [facility] MUSE P axis 1 61 [facility] MUSE QRS axis 1 -36 [facility] MUSE T wave axis 51 HM MUSE EKG impression Sinus bradycardia-Left axis [facility] MUSE deviation-Right bundle branch block-Abnormal ECG-In automated comparison with ECG of 09-JUL-2018 19:09,-premature atrial complexes are no longer present-Vent. rate has increased BY19 BPM-Inverted T waves have replaced nonspecific T wave abnormality in Anterior leads-QT has lengthened- Specimen Narrative Performed At Performing Organization Address [facility] Phone Number [facility] MUSE [address] [place] [address] * POC glucose (07/11/2018 11:40 AM FOLDER GLUER OPERATOR) Only the most recent of 2 results within the time period is included. [facility] POC glucose 97 65 - 100 mg/dL [place] Comment: AUREA RICE Meter ID: [id number] DISHA Cutting Machine Tender Helper: [facility] Specimen Performing Organization Address City/State/Zipcode Phone Number [facility] DE[facility]MENT OF [address] [facility] [place] [address] PATHOLOGY AND GENOMIC MEDICINE [place] AUREA RICE [address] [place], [place] [id number] [place] [address] * Echocardiogram complete w contrast and 3D if needed (07/09/2018 8:57 PM FOLDER GLUER OPERATOR) Ao Root 3.43 cm [facility] Diameter [...] i VTI 1.26 cm2/m2 [facility] BSA Calhoun MR Vmax 4.93 m/s [facility] BMI [...] City/State/Zipcode Phone Number [facility] [address] [place] [address] * Arterial blood gas (07/09/2018 7:29 PM FOLDER GLUER OPERATOR) Cutting Machine Tender Helper germain owens [facility] Collection site rra [facility] O[address] [facility] pH, arterial 7.462 (H) 7.350 - 7.[address] [facility] pCO2, arterial 35.9 35.0 - 45.[address] [facility] pO2, arterial 80.4 80.0 - 90.[address] [facility] O2 saturation, 96.4 95.0 - 100.0 % [place] arterial [facility] Base excess, 1.8 mEq/L [place] arterial [facility] Bicarbonate 25.6 21.0 - 28.0 mEq/L [facility] O2 content 17.7 VOL% [facility] FiO2, inspired 28.0 % [place] O2% [facility] Carboxyhemoglob 0.3 0.0 - 1.4 % [place] in Comment: [facility] Reference Ranges: [facility] Carboxyhemoglobin [facility] Non smoker: 0.0 - 2.0% Smoker: 2.1 - 5.0% Heavy smoker: 5.1 - 9% Methemoglobin 1.5 (H) 0.0 - 1.0 % [facility] Hemoglobin, 13.3 (L) 14.0 - 18.0 g/dL [place] blood gas [facility] pO2, A-a 76.[address] [facility] Specimen Blood Performing Organization Address City/[facility]/Zipcode Phone Number [facility] [address] [facility] [place] [address] PATHOLOGY AND GENOMIC MEDICINE [address] * Blood culture, aerobic & anaerobic (07/09/2018 7:03 PM FOLDER GLUER OPERATOR) Only the most recent of 4 results within the time period is included. Blood culture No growth after 5 days of [place] isolate incubation. [facility] Comment: HOSPITAL Specimen Information Specimen Source: Blood Specimen Site: Peripheral Hand Left Specimen Blood Performing Organization Address City/[facility]/Zipcode Phone Number [facility] DEPARTMENT OF [address] [place] [address] PATHOLOGY AND GENOMIC MEDICINE [address] * Procalcitonin (07/09/2018 6:59 PM FOLDER GLUER OPERATOR) Pathologist [facility] Procalcitonin 19.90 (H) <=0.07 ng/mL [facility] Comment: INTERPRETIVE INFORMATION: Procalcitonin Effective February 07, 2018, this test is performed by the [facility] Exercise Physiologist [facility] Procalcitonin assay. A correction has been [...] condition(s) of the individual patient. Performed at: [facility] [address] [facility] [address] Specimen Serum Performing Organization Address City/State/Zipcode Phone Number [facility] [address] [place] [address] [facility] [address] [place] [address] * Troponin (07/09/2018 6:59 PM FOLDER GLUER OPERATOR) Only the most recent of 4 results within the time period is included. Pathologist [facility] Troponin <0.30 0.00 - 0.30 ng/mL [place] Comment: [facility] RICE 0.11 - 1.49 DISHA ng[facility] indicate increased risk of acute coronary syndrome. >=1.5 ng/ml Consistent with acute myocardial infarction. The diagnostic value of a single normal or non-diagnostic result is questionable.Serial samples at 2-6 hour intervals are required to rule out acute myocardial injury. Specimen Plasma specimen Performing Organization Address City/State/Zipcode Phone Number [place] [address] [place] [address] PATHOLOGY AND GENOMIC MEDICINE [address] * C-reactive protein (07/09/2018 6:59 PM FOLDER GLUER OPERATOR) CRP 9.65 (H) 0.00 - 0.50 mg/dL [facility] Specimen Plasma specimen Performing Organization Address [facility] Phone Number [facility] DEPARTMENT OF [address] [place] [address] PATHOLOGY AND GENOMIC MEDICINE [address] * Thyroid stimulating hormone (07/09/2018 6:59 PM FOLDER GLUER OPERATOR) TSH 0.30 0.27 - 4.20 uIU/mL [facility] Specimen Plasma specimen Performing Organization Address [facility] Phone Number [facility] [address] [place] [address] PATHOLOGY AND GENOMIC MEDICINE [address] * T4, free (07/09/2018 6:59 PM FOLDER GLUER OPERATOR) Pathologist [facility] T4, free 0.90 0.90 - 1.70 ng/dL [facility] Specimen Plasma specimen Performing Organization Address [facility] Phone Number [facility] DEPARTMENT OF [address] [place] [address] PATHOLOGY AND GENOMIC MEDICINE [address] * Phosphorus level (07/09/2018 6:59 PM FOLDER GLUER OPERATOR) Phosphorus 2.8 2.4 - 4.5 mg/dL [facility] Specimen Plasma specimen Performing Organization Address [facility] Phone Number [facility] [place] [address] PATHOLOGY AND GENOMIC MEDICINE [address] * B natriuretic peptide (07/09/2018 6:59 PM FOLDER GLUER OPERATOR) Only the most recent of 2 results within the time period is included. BNP 297 (H) 0 - 100 pg/mL [facility] Specimen Blood Performing Organization Address City/[facility]/Zipcode Phone Number [facility] DEPARTMENT OF [address] [facility] [place] [address] PATHOLOGY AND GENOMIC MEDICINE [address] * Magnesium level (07/09/2018 6:59 PM FOLDER GLUER OPERATOR) Magnesium 2.00 1.60 - 2.40 mg/dL [facility] Specimen Plasma specimen Performing Organization Address City/[facility] Phone Number [facility] DEPARTMENT OF [address] [place] [address] PATHOLOGY AND GENOMIC MEDICINE [address] * Lipase level (07/09/2018 6:59 PM FOLDER GLUER OPERATOR) Only the most recent of 2 results within the time period is included. Lipase 16 13 - 60 U/L [facility] Specimen Plasma specimen Performing Organization Address City/[facility] Phone Number [facility] DE[facility]MENT OF [address] [facility] [place] [address] PATHOLOGY AND GENOMIC MEDICINE [address] * Lactic acid level (07/09/2018 6:59 PM FOLDER GLUER OPERATOR) Lactic acid 1.7 0.5 - 2.2 mmol/L [facility] Specimen Blood Performing Organization Address City/[facility] Phone Number [facility] DE[facility]MENT OF [address] [facility] [place] [address] PATHOLOGY AND GENOMIC MEDICINE [address] * Creatine kinase, total (CPK) (07/09/2018 6:59 PM FOLDER GLUER OPERATOR) Creatine kinase 69 39 - 308 U/L [facility] Specimen Plasma specimen Performing Organization Address City/[facility] Phone Number [facility] DE[facility]MENT OF [address] [facility] [place] [address] PATHOLOGY AND GENOMIC MEDICINE [address] * Ionized calcium (07/09/2018 6:59 PM FOLDER GLUER OPERATOR) pH 7.40 [facility] Ionized calcium 1.16 1.11 - 1.32 mmol/L [facility] Specimen Plasma specimen Performing Organization Address City/[facility] Phone Number [facility] DEPARTMENT OF [address] [place] [address] PATHOLOGY AND GENOMIC MEDICINE [facility] [address] * Respiratory culture (07/08/2018 5:10 PM FOLDER GLUER OPERATOR) Respiratory Normal oral richard isolated. [place] culture isolate Comment: [facility] Specimen Information HOSPITAL Specimen Source: Bronchial Washing Specimen Site: All Lobes Specimen Bronchial washing - Washing Performing Organization Address [facility] Phone Number [facility] DEPARTMENT OF [address] [place] [address] PATHOLOGY AND GENOMIC MEDICINE [address] * CT Abdomen Pelvis W Wo Contrast (07/08/2018 10:28 AM FOLDER GLUER OPERATOR) Specimen Narrative Performed At EXAMINATION:CT ABDOMEN PELVIS W WO CONTRAST [facility] CLINICAL HISTORY:Abnormal findings on diagnostic imaging of other parts of digestive tract, liver [id number] cm possible liver lesion TECHNIQUE: Multiple axial [...] factors High risk patients: *Greater than 20 [id number]-ovlq-sssb history of smoking, or equivalent second hand [...] short axes rounded to the nearest mm. [facility]-[id number] Procedure Note Interface, Radiology Results [facility] - 07/08/2018 10:54 AM FOLDER GLUER OPERATOR EXAMINATION: CT ABDOMEN PELVIS W WO CONTRAST [...] High risk patients: * Greater than 20 [id number]-zhkw-[id number] history of smoking, or equivalent second hand [...] short axes rounded to the nearest mm. [id number] Performing Organization Address City/State/Zipcode Phone Number [facility] [address] [place] [address] * Venous blood gas (07/08/2018 6:14 AM FOLDER GLUER OPERATOR) Cutting Machine Tender Helper [id number] [facility] Collection site R HAND [facility] pH, venous 7.423 (H) 7.320 - 7.[address] [facility] pCO2, venous 44.1 (L) 45.0 - 51.[address] [facility] pO2, venous 59.3 (H) 25.0 - 40.[address] [facility] O2 saturation, 91.3 (H) 40.0 - 70.0 % [place] venous [facility] Base excess, 4.3 (H) -2.0 - 2.0 mEq/L [place] venous [facility] Bicarbonate 28.8 (H) 21.0 - 28.0 mEq/L [facility] O2 content 17.1 VOL% [facility] FiO2, inspired 21.0 % [place] O2% [facility] Carboxyhemoglob 0.9 0.0 - 1.4 % [place] in Comment: [facility] Reference Ranges: [facility] Carboxyhemoglobin [facility] Non smoker: 0.0 - 2.0% Smoker: 2.1 - 5.0% Heavy smoker: 5.1 - 9% Methemoglobin 1.3 (H) 0.0 - 1.0 % [facility] Hemoglobin, 13.6 (L) 14.0 - 18.0 g/dL [place] blood gas [facility] Specimen Blood Performing Organization Address City/[facility] Phone Number [place] [address] [address] [place] [phone] PATHOLOGY AND GENOMIC MEDICINE [place] [address] [address] * Lactic acid level, SEPSIS - Now and repeat 2x every 3 hours (07/08/2018 3:44 AM FOLDER GLUER OPERATOR) Only the most recent of 3 results within the time period is included. Lactic acid 1.2 0.5 - 2.2 mmol/L [facility] Specimen Blood Performing Organization Address City/[facility] Phone Number [place] [address] [address] [place] [phone] PATHOLOGY AND GENOMIC MEDICINE [place] [address] [place] [address] [facility] * CT Angiogram Pe Chest (07/08/2018 12:24 AM FOLDER GLUER OPERATOR) Specimen Narrative Performed At EXAMINATION: [facility] CT ANGIOGRAM PE CHEST CLINICAL HISTORY: recent [...] are seen of left renal collecting system. [facility]-[id number] Procedure Note Hm Interface, Radiology Results Incoming - 07/08/2018 12:45 AM FOLDER GLUER OPERATOR EXAMINATION: CT ANGIOGRAM PE CHEST CLINICAL HISTORY: [...] are seen of left renal collecting system. [facility]-[id number] Performing Organization Address City/State/Zipcode Phone Number [facility] [address] [place] [address] * Sepsis Clinical Assessment (07/07/2018 9:38 PM FOLDER GLUER OPERATOR) Narrative Performed At Robert Rich NP 07/08/20186:24 AM Reperfusion assessment done Sepsis Clinical Assessment Performed by: Robert Rich NP Authorized by: Robert Rich NP Sepsis Clinical Assessment General Assessment Information Current sepsis score:2 On comfort care?: No If score does not worsen, snooze alerts until:07/08/2018 09:00 FOLDER GLUER OPERATOR SIRS Criteria Temperature > 38.3 C (101 [...] administrations. * CRITICAL CARE (07/07/2018 8:49 PM FOLDER GLUER OPERATOR) Narrative Performed At Herminio Dick MD 07/08/2018 [...] * Hepatic function panel (07/07/2018 8:38 PM FOLDER GLUER OPERATOR) Albumin 3.2 (L) 3.5 - 5.0 g/dL [facility] Total bilirubin 0.9 0.2 - 1.2 mg/dL [facility] Bilirubin 0.2 0.0 - 0.4 mg/dL [place] direct [facility] Alkaline 57 0 - 129 U/L [place] phosphatase [facility] Protein 6.3 6.3 - 8.3 g/dL [facility] ALT 17 5 - 50 U/L [facility] AST 26 10 - 50 U/L [facility] Specimen Plasma specimen Performing Organization Address City/State/Zipcode Phone Number [facility] DE[facility]MENT OF [address] [place] [phone] PATHOLOGY AND GENOMIC MEDICINE [place] [id number] [address] * [place] Pyelogram Retrograde (02/15/2018 2:31 [...] 47 seconds. 4 image(s). Performing Organization Address [facility] Phone Number [facility] [address] [place] [address] * ECG Pre/Post Op (02/10/2018 12:41 PM CDT) Ventricular 49 [facility] MUSE rate Atrial rate 49 [facility] M[facility] AK interval 136 [facility] QRSD interval 130 [facility] QT interval 444 [facility] QTC interval 401 [facility] P axis 1 27 [facility] QRS axis 1 -49 [facility] M[facility] T wave axis 31 [facility] EKG impression Marked sinus bradycardia-Right [facility] MUSE bundle branch block-Left anterior fascicular block-^^^ Bifascicular block ^^^-Possible Lateral infarct , age undetermined-Abnormal ECG-In automated comparison with ECG of 17-MAY-2013 16:37,-Vent. rate has decreased BY26 BPM-(RBBB and left anterior fascicular block) is now present- Specimen Performing Organization Address [facility] Phone Number [facility] Force[employer] [address] [place] [address] * Estimated GFR (02/10/2018 12:20 PM CDT) Only the most recent of 2 results within the time period is included. GFR Non Af Amer 73 mL/min/1.73 m2 [facility] OF PATHOLOGY AND GENOMIC MEDICINE GFR Af Amer 89 mL/min/1.73 m2 [facility] Comment: OF PATHOLOGY Chronic kidney disease: [...] Americans. Specimen Plasma specimen Performing Organization Address City/[facility] Phone Number [facility] OF [address] [place] [address] PATHOLOGY AND GENOMIC MEDICINE * CBC hemogram (01/11/2018 11:43 AM CDT) WBC 4.0 (L) 4.2 - 11.0 k/uL [facility] OF PATHOLOGY AND GENOMIC MEDICINE RBC 4.90 4.04 - 5.86 m/uL [facility] OF PATHOLOGY AND GENOMIC MEDICINE HGB 14.4 13.0 - 17.3 g/dL [facility] OF PATHOLOGY AND GENOMIC MEDICINE HCT 45.0 34.0 - 45.0 % [facility] OF PATHOLOGY AND GENOMIC MEDICINE MCV 91.8 80.0 - 98.0 fL [facility] OF PATHOLOGY AND GENOMIC MEDICINE MCH 29.4 27.0 - 34.0 pg [facility] OF PATHOLOGY AND GENOMIC MEDICINE MCHC 32.0 31.5 - 36.5 g/dL [facility] OF PATHOLOGY AND GENOMIC MEDICINE RDW - SD 48.1 37.0 - 51.0 fL [facility] OF PATHOLOGY AND GENOMIC MEDICINE MPV 10.9 (H) 7.4 - 10.4 fL [facility] OF PATHOLOGY AND GENOMIC MEDICINE Platelet count 171 150 - 400 k/uL [facility] OF PATHOLOGY AND GENOMIC MEDICINE Nucleated RBC 0.00 /100 WBC [facility] OF PATHOLOGY AND GENOMIC MEDICINE Specimen Blood Performing Organization Address City/[facility] Phone Number [facility] [address] [place] [address] PATHOLOGY AND [employer] MEDICINE * Prostate specific antigen (01/11/2018 11:43 AM CDT) Pathologist [facility] PSA 5.1 (H) 0.0 - 4.0 ng/mL [facility] DEPARTMENT Comment: OF PATHOLOGY The HAO 8000 PSA immunoassay AND GENOMIC was used. MEDICINE Results obtained with different assay methods or kits should not be used interchangeably and may be different. Specimen Plasma specimen Performing Organization Address City/[facility]/Zipcode Phone Number [facility] DEPARTMENT OF [address] [place] [address] PATHOLOGY AND GENOMIC MEDICINE * US Prostate (01/11/2018 11:38 AM CDT) Specimen Narrative Performed At EXAMINATION:[facility] CLINICAL HISTORY:N40.1 Benign prostatic hyperplasia with lower [...] prostate. Performing Organization Address City/State/Zipcode Phone Number [facility] [address] [place] [address] after 01/01/2018 Insurance Type Payer Benefit Subscriber ID Effective Phone Address Plan / Dates Group Medicare MEDICARE MEDICARE xxxxxxxxxxx 2010-P [place], PART A AND resent [place] B Commercial [employer] [place] OF xxxxxxxx 2017-P MELODY diaz Advance Directives Patient has advance care planning documents on file. For more information, eduardo manuel contact: Brown Michelle [address] [place] [address]
[2019-01-02] MEDS: SODIUM CHLORIDE 0.9% 1000ML 1,000 ML IV SCH ×3 (04:21→23:51)
[2019-01-02] MEDS: CEFTRIAXONE SOD 1 GM/NS 50 ML 50 ML IV SCH (04:21)
--- NOTE | 2019-01-02 07:05 | NUR ---
PT RESTING AA0X3 PT RESTING COMFORTABLE IN BED DENIES PAIN PT IS ON IV FLUIDS TO THE RIGHT AC 18 G WITH NS AT 100CC/HR IV SITE IS CLEAN AND DRY PT UNDERSTANDS TO STRAIN URINE IS AT BEDSIDE, WILL CONTINUE TO MONITOR PT CLOSELY SIDE [id number], BED WHEELS LOCKED, CALL LIGHT IS WITHIN EASY, INSTRUCTED TO CALL FOR ASSISTANCE IF NEEDED
--- NOTE | 2019-01-02 08:22 | NUR ---
SPOKE TO MD WEATHERS REGARDING CX. STATES HE WILL SEE PT TODAY AND CAN EAT A REG DIET ORDERS RECEIVED
--- NOTE | 2019-01-02 08:30 | NUR ---
MD WEATHERS ROUNDED STATES HE WILL NO OPERATE ON PT HE IS COVERING FOR MD JAMISON AND SHAHEEN WILL BE BACK TOMORROW
[2019-01-02] MEDS ORDERED: OXYCODONE HCL 20 MG TAB CR PO PRN (11:45)
[2019-01-02] MEDS ORDERED: OXYCODONE HCL IR 5 MG TAB PO PRN (12:00)
[2019-01-02] MEDS ORDERED: HYDROMORPHONE 2MG/ML 2 MG/ML ML IV PRN (12:00)
[2019-01-02] MEDS: KETOROLAC TROMETHAMINE 30 MG/ML VIAL IV PRN ×2 (12:27→20:01)
--- NOTE | 2019-01-02 13:53 | Consultation ---
DATE OF CONSULTATION: 01/02/2019 Urology Consultation Note Consultation is called by Dr. Nicole. CHIEF COMPLAINT AND REASON FOR CONSULTATION: Kidney stones. HISTORY OF PRESENT ILLNESS: Mr. Jose Garcia is a 73-year-old male patient with extremely complicated urologic history. He has seen at least 4 urologic surgeons in the past 6 months including the [facility] as well as Dr. Ruben Montero as well as Dr. Harpreet Nicolas, as well as Dr. Jaya Nicolas. 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 The patient presented to the emergency room experiencing abdominal pain, was found to have left-sided kidney stones and ureteral calculi per report. Denied gross hematuria. Denied dysuria. PAST MEDICAL HISTORY: As above, status post prostate biopsy by Dr. Harpreet Nicolas, transurethral section of prostate x2, latest June [address] Ruben Montero (resection performed with laser). MEDICATIONS: Please see MAR. ALLERGIES: NKDA. SOCIAL HISTORY: Denied smoking or drinking. FAMILY HISTORY: Denied urologic stones or malignancies. REVIEW OF SYSTEMS: Noncontributory other than problems mentioned above for 12 organ systems. PHYSICAL EXAMINATION: GENERAL: An elderly male, currently lying in no acute distress. VITAL SIGNS: Temperature 97.4, pulse 55, respirations 18, and blood pressure 146/81. HEENT: Sclerae anicteric. NECK: Supple. BACK: Without costovertebral angle tenderness bilaterally. ABDOMEN: Soft. It is nontender. It is nondistended. No palpable mass. No palpable hernias. No palpable adenopathy. : Normal external genitalia. EXTREMITIES: No edema. PSYCH: Alert. Mood appropriate. SKIN: Intact. Normal color. PERTINENT LABORATORY DATA: CT scan revealing a right lower pole punctate renal calculus of 5.6 cm right renal cyst, 11 mm left-sided kidney stone, 3.5 cm abdominal aortic aneurysm, two left distal ureteral calculi, one 7 mm and one 4 mm; fat containing umbilical hernia, mild left-sided hydronephrosis. Hemoglobin 12, hematocrit 36, platelet count 196,000, and white cell count 6360. Sodium 142, potassium 4.2, chloride 107, bicarb 26, BUN 28, creatinine 1.02, and glucose 100. Urinalysis; 1+ blood, 0-5 reds, and 0-5 whites. 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 2. Left-sided ureteral calculi. 3. Left-sided hydronephrosis. 4. Bilateral renal calculi. 5. Benign prostatic hypertrophy. 6. Microscopic hematuria. 7. Umbilical hernia. 8. Abdominal aortic aneurysm. 9. Renal cyst. 10. Hypertension. PLAN: 1. I had an extensive discussion with the patient as well as son-in-law per his request regarding alternatives, risks, and benefits for fear . We will defer to his normal urologist, Dr. Jaya Nicolas and the patient noninvasively as possible. Thank you for allowing me to participate in the care patient. We will continue the patient with antibiotics and follow along with you. Josue Rush MD ES/MODL /[id number] cc: Love Nicole MD
--- NOTE | 2019-01-02 13:58 | History and Physical ---
CHIEF COMPLAINT: Flank pain. HISTORY OF PRESENT ILLNESS: This is a 73-year-old male with past medical history of osteomyelitis of the pelvis and BPH, in which he presents now with complaints of left-sided flank pain that began several days prior to arrival to the hospital. The patient complained of severe episodic pain with associated nausea and vomiting. Denies any fever at home. The patient presented to the [facility], found to have a [address] imaging. The patient was seen and evaluated at bedside on the medical floor. Currently, he is doing much better with no other issues with pain control. REVIEW OF SYSTEMS: Pertinent positive: Left-sided flank pain with associated nausea and vomiting. Pertinent negative: Denies any chest pain, palpitation, dysuria, hematuria, frequency, urgency, lightheadedness, dizziness, headache, shortness of breath, cough, congestion, fever, or any other complaints. The rest of the 14-point review of systems have been reviewed with the patient and are negative. ALLERGIES: NO KNOWN DRUG ALLERGIES. HOME MEDICATIONS: 1. Lipitor 20 mg daily. 2. Oxycodone 5 mg p.o. b.i.d. p.r.n. for pain. 3. Prednisone 10 mg daily. 4. Simvastatin 40 mg daily. 5. Tamsulosin 0.4 mg at bedtime. 6. Trazodone 100 mg at bedtime,. 7. Losartan 25 mg daily. PAST MEDICAL HISTORY: Osteomyelitis of the pelvis, pubic symphysis on IV antibiotics, nephrolithiasis now with left-sided flank pain, hypertension, hyperlipidemia, and BPH. PAST SURGICAL HISTORY: TURP x2 in the past. FAMILY HISTORY: Hypertension and diabetes. SOCIAL HISTORY: No drugs. No alcohol. Does not smoke. Good social support. , has children. PHYSICAL EXAMINATION: VITAL SIGNS: Temperature is 97.5, pulse 87, respiratory rate 18, blood pressure 134/68, and pulse ox 96% on room air. GENERAL: No acute distress, alert and oriented x3. Cooperative on examination. HEENT: Head is normocephalic, atraumatic. Eyes; pupils are equal, round, and reactive to light bilaterally. Extraocular motions intact bilaterally. Throat, no evidence of erythema or exudates in the posterior pharynx. Has poor dentition. NECK: Supple with good range of motion. PULMONARY: Clear to auscultation bilaterally. No wheezing, rales, or rhonchi. No crackles appreciated. CARDIOVASCULAR: Positive S1 and S2. No murmurs, rubs, or gallops appreciated. ABDOMEN: Soft, nondistended. Bowel sounds present. There is left-sided flank pain on palpation. MUSCULOSKELETAL: Strength is 5/5 throughout. No evidence of any muscle deficits on examination. No weakness appreciated. NEUROLOGICAL: Cranial nerves II through XII grossly intact. No evidence of any neurological deficits on exam. SKIN: Intact. Warm to touch. Good cap refill. PSYCHIATRIC: Normal affect and mood. EXTREMITIES: No edema. Good range of motion throughout. LAB FINDINGS: White count was 6.3, hemoglobin 12, hematocrit 36, and platelets of 196. Chemistry; sodium 142, potassium 4.3, chloride 107, bicarb 26, anion gap of 13, BUN is 20, creatinine is 1, glucose 100, calcium 9.5, and total bilirubin is 0.8. AST 15, ALT 21, alkaline phosphatase 128, total protein 6, and albumin 3.2. Urinalysis showed just evidence of some cloudy urine, 1+ blood, microbiology none. IMAGING STUDIES: CT abdomen and pelvis consistent with a 7 mm left ureter distal nephrolithiasis, measurement of 7 mm in size. A comment on two calculi seen. There is one calculated to be 4 mm in size. There is evidence of mild hydronephrosis on the left. IMPRESSION: 1. Left distal ureteral nephrolithiasis leading to mild hydronephrosis with 7 mm stone present. 2. Recent pubic symphysis osteomyelitis. Completed IV antibiotic therapy. 3. Hypertension. 4. Hyperlipidemia. PLAN: At this time Urology was consulted and recommends conservative treatment. The patient was not happy with the response, but tomorrow there will be a different urologist to come and evaluate him to get further recommendations. At this time, continue with pain control with IV Dilaudid, Toradol for anti-inflammatory as well as for pain. Continue with tamsulosin as well to see if the stone will pass through. He is on a regular diet, IV fluids, and antinausea medication. We are going to resume same home medications with no changes. Encourage ambulation. He is also on IV antibiotics as well and continue with normal saline at 125 mL/hour. Otherwise, we will continue same plan of care. Discussed plan of care with the patient and the family at bedside. MD JOANIE Her/PAWAN /[id number]
[2019-01-02] MEDS ORDERED: HYDROMORPHONE 1MG/1ML INJ IV STA (18:18)
[2019-01-02] MEDS ORDERED: HYDROMORPHONE 2MG/ML 2 MG/ML ML IV ONE (18:30)
--- NOTE | 2019-01-02 20:10 | NUR ---
ASSESSMENT DONE.NO RESP.DISTRESS.PAIN VOICED.MEDICATION GIVEN.TO DO STRAIN URINE.BED LOCKED AND IN LOWEST POSITION.PHONE AND CALL LIGHT WITHIN REACH.INSTRUCTED TO CALL FOR ASSISTANCE NEEDED.
[2019-01-02] MEDS: TAMSULOSIN HCL 0.4 MG CAP PO SCH (20:35)
[2019-01-02] MEDS: SIMVASTATIN 40 MG TAB PO SCH (20:35)
[2019-01-02] MEDS: ATORVASTATIN 20 MG TAB PO SCH (20:35)
--- NOTE | 2019-01-02 21:39 | Consultation ---
DATE OF CONSULTATION: 01/02/2019 REASON FOR CONSULTATION: Renal stone, recommendation of antibiotic, prostatitis. HISTORY OF PRESENT ILLNESS: Mr. Garcia is a very pleasant 73-year-old gentleman, who I have known for the last few months. He had prostatitis and osteomyelitis of the pubic bone. The patient was on IV antibiotic, meropenem for 6-8 weeks with improvement. He presented with severe pain on the left side. The patient has history of renal stone before. He was diagnosed with renal stone, came to the emergency room. A CAT scan of the abdomen and pelvis was done and showed that he does have a calculi in the distal left ureter with mild hydroureteronephrosis with bilateral intrarenal calculi, left larger than right. The patient was admitted. He denies any fever. He denies any chills. He is currently lying in bed comfortably. This patient has been having problem with pain and gait from the chronic osteomyelitis of the pubic bone, but he has been treated with pain medication, pain management and slowly getting better. PAST SURGICAL HISTORY: TURP x2. ALLERGIES: NKA. SOCIAL HISTORY: There is no smoking, drug abuse, or alcohol abuse. FAMILY HISTORY: Denies. MEDICATIONS: He is currently on: 1. Toradol. 2. Ceftriaxone. 3. Cozaar. 4. Dilaudid. 5. Oxycodone. 6. Desyrel. 7. Zocor. 8. Zofran. LABORATORY AND DIAGNOSTIC DATA: I have reviewed with the patient his laboratory data, CAT scan, and MRIs and all the tests that he have done in the hospital since the last couple of months. White count 6.36 and hemoglobin 12.4. His sodium is 142, potassium 4.2, and creatinine 1.02. REVIEW OF SYSTEMS: HEENT: Negative. PULMONARY: Negative. CARDIAC: Negative. : Currently negative. GI: Negative. SKIN: There is no other rash. All other symptoms within normal limits. PHYSICAL EXAMINATION: GENERAL: He is currently alert, oriented, does not seem to be in acute distress. VITAL SIGNS: Stable. Afebrile. HEENT: Normocephalic, does not appear icteric. NECK: Supple. No JVD. No lymphadenopathy. No thyromegaly. CHEST: Clear bilateral. COR: S1 and S2. No S3, S4, or murmur. ABDOMEN: Soft. Bowel sounds present. EXTREMITIES: No edema. IMPRESSION: Renal stone. I discussed with the patient that he probably would benefit from lithotripsy. We will obtain the urine culture, at the present time I do not think he has urinary tract infection. We will keep him on Rocephin in the meantime. The patient would like to see Dr. Jaya Nicolas since he is known to him before. Agree with IV fluid. Agree with pain control. History of prostatitis and history of osteomyelitis being treated, but now off antibiotic. From Infectious Disease point of view, continue pain management. Urology evaluation as ordered above. Continue all his home medication. We will follow. MD TERI Crews/PAWAN /[id number]
[2019-01-02] MEDS: TRAZODONE HCL 50 MG TAB PO PRN (23:30)
[2019-01-02] MEDS: HYDROMORPHONE 2MG/ML 2 MG/ML ML IV PRN (23:51)
[2019-01-03] VITALS (8 sets, daily range): BP systolic 116–134; BP diastolic 62–75
[2019-01-03] MEDS: CEFTRIAXONE SOD 1 GM/NS 50 ML 50 ML IV SCH (03:38)
[2019-01-03] MEDS: KETOROLAC TROMETHAMINE 30 MG/ML VIAL IV PRN (04:04)
[2019-01-03 05:45] LABS: BASOPHILS % 0.3 % (0.0-1.0); EOSINOPHILS # (AUTO) 0.1 (0.0-0.4); EOSINOPHILS % 1.2 % (0.0-6.0); HEMATOCRIT 33.8 % (38.2-49.6); HEMOGLOBIN 10.6 g/dL (14.0-18.0); LYMPHOCYTES # (AUTO) 1.2 (1.0-3.2); LYMPHOCYTES % 19.3 % (18.0-39.1); MEAN CORPUSCULAR HEMOGLOBIN 28.9 pg (28-32); MEAN CORPUSCULAR HGB CONC 31.4 g/dL (31-35); MEAN CORPUSCULAR VOLUME 92.1 fL (81-99); MONOCYTES # (AUTO) 0.4 (0.2-0.8); MONOCYTES % 6.9 % (4.4-11.3); NEUTROPHILS # (AUTO) 4.2 (2.1-6.9); PLATELET COUNT 153 x10e3/uL (140-360); RED BLOOD COUNT 3.67 x10e6/uL (4.3-5.7); RED CELL DISTRIBUTION WIDTH 15.4 % (11.7-14.4)
[2019-01-03 06:10] LABS: ALBUMIN 2.6 g/dL (3.5-5.0); ALBUMIN/GLOBULIN RATIO 1.1 (0.8-2.0); CALCIUM 8.3 mg/dL (8.4-10.2); CREATININE, SERUM 1.33 mg/dL (0.72-1.25)
--- NOTE | 2019-01-03 07:00 | NUR ---
PT RESTING IN BED COMFORTABLY [id number]. PT IS AT BEDSIDE MD JAMISON ROUNDED AND SPOKE WITH PT, STATES HE WILL DO SX TOMORROW DEPENDING ON KUB RESULTS OF TODAY PT UNDERSTANDS PLAN OF CARE FOR TODAY PT CONTINUES ON IV FLUIDS TO THE RIGHT AC 18G WITH NS AT 100CC.HR PAIN TO LEFT FLANK IS TOLERABLE 3/10 WILL CONTINUE TO STRAIN URINE. SIDE RAILSX2 ,BED WHEELS LOCKED, CALL LIGHT IS WITHIN EASY REACH INSTRUCTED TO CALL FOR ASSISTANCE IF NEEDED
--- NOTE | 2019-01-03 07:02 | NUR ---
REPORT GIVEN TO THE ONCOMING RN.WALKING ROUNDS DONE.STABLE CONDITION.
--- NOTE | 2019-01-03 07:58 | NUR ---
hr reading 44 on morning v/s retaken manually reading 48. placed pt on telemetry per protocol notified md ariza awaiting for call back
--- NOTE | 2019-01-03 08:28 | Diagnostic Imaging Report ---
Exam: KUB - 2 views Clinical History: Follow-up stone. Comparison: CT abdomen/pelvis 01/02/2019. Findings: There is a 7 cm calcification in the expected location of the distal left ureter near the UVJ. The left distal ureteral stone on CT from 01/02/2019 has likely advanced. Additional smaller left distal ureteral stone is not well visualized. The kidneys are partially obscured by overlying bowel gas. Multiple left-sided renal stones are better characterized on prior CT. Nonobstructive bowel gas pattern. Moderate amount of stool in the colon. No acute osseous abnormality. Impression: A 7 mm left ureteral stone near the UVJ. The left distal ureteral stone on CT from 01/02/2019 has likely advanced. Additional smaller left distal ureteral stone is not well visualized. Signed by: Dr. Yaneth Melchor MD on 01/03/2019 8:25 AM
[2019-01-03] MEDS ORDERED: PREDNISONE 10 MG TAB PO SCH (09:00)
[2019-01-03] MEDS ORDERED: LOSARTAN POTASSIUM 25 MG TAB PO SCH (09:00)
[2019-01-03] MEDS ORDERED: NON-FORMULARY MEDICATION (Losartan Potassium 25 MG) PO SCH (09:00)
[2019-01-03] MEDS: SODIUM CHLORIDE 0.9% 1000ML 1,000 ML IV SCH ×2 (09:32→15:24)
[2019-01-03] MEDS ORDERED: ONDANSETRON HCL 4 MG ORAL DISINTEGRATING TAB PO PRN (12:00)
[2019-01-03] MEDS: HYDROCODONE/APAP 5MG-325MG TAB PO PRN (12:16)
--- NOTE | 2019-01-03 12:33 | Progress Note ---
DATE: 01/03/2019 Medicine Progress Note SUBJECTIVE: The patient still has episodic left-sided flank pain. His heart rate is low in the 40s, occasionally in the 50s. He denies any history of bradycardia in the past. He is not on any beta blockers. Denies any chest pain. We will go ahead and get Cardiology consultation to further evaluate. It could be from underlying pain medicine. OBJECTIVE: VITAL SIGNS: Temperature 96.7, pulse 48, respiratory rate 18, blood pressure 127/70, and pulse ox 97% on room air. GENERAL: Not in acute distress. Alert and oriented x3. Cooperative on examination. HEENT: Head is normocephalic and atraumatic. Eyes; pupils are equal, round, and reactive to light bilaterally. Extraocular movements are intact bilaterally. Throat, no evidence of erythema or exudates in the posterior pharynx. Has poor dentition. NECK: Supple. Good range of motion. PULMONARY: Clear to auscultation bilaterally. No wheezing, no rales, no rhonchi, no crackles appreciated. CARDIOVASCULAR: Positive S1, S2. No murmurs, rubs, or gallops appreciated. ABDOMEN: Soft, nondistended, and nontender to palpation. Bowel sounds present. MUSCULOSKELETAL: Strength is 5/5 throughout. No evidence of any muscle deficits on examination. No weakness appreciated. NEUROLOGICAL: Cranial nerves II through XII grossly intact. No evidence of any neurological deficits on exam. SKIN: Intact. Warm to touch. Good cap refill. PSYCHIATRIC: Normal affect and mood. EXTREMITIES: No edema. Good range of motion throughout. LAB FINDINGS: Showed white count 5.9, hemoglobin 10.6, hematocrit 33.8, and platelets of 153. Chemistry; sodium 132, potassium 5, chloride 109, bicarb 23, anion gap of 9, BUN 27, creatinine is 1.3, glucose 84, calcium 8.3, total bilirubin 1.6, AST 15, ALT 17, alkaline phosphatase 105, albumin 2.6. Urinalysis was negative. MICROBIOLOGY: Urine cultures were pending. IMAGING STUDIES: KUB shows a 7 mm left ureteral stone near the UVJ and left distal ureter stone on CT from 01/02/2019, likely advanced. Additional smaller left distal ureteral stone is not well visualized. IMPRESSION: 1. Left distal ureteral nephrolithiasis leading to mild hydronephrosis with 7 mm stone. 2. Recent pubic symphysis, osteomyelitis, completed IV antibiotic therapy. 3. Hypertension. 4. Hyperlipidemia. 5. Sinus bradycardia. PLAN: At this time, Urology spoke with the patient, will likely undergo cystoscopy tomorrow with further intervention, possibly lithotripsy with the ureteral stent. His heart rate is low for which I will go ahead and consult Cardiology. I discussed with him, it is very difficult for me to give him pain med since heart rate is low. He agreed. I did order a low dose of [place] in the event he does need it, but we will hold off Dilaudid for now. His kidney function is slightly elevated. I am going to go ahead and discontinue the Toradol to avoid any worsening renal function. He is on IV fluids as well. I will get a.m. labs. Cardiology was consulted for the sinus bradycardia. Continue with IV antibiotics, pain control, and IV fluids for now. Consultants; Urology, Cardiology, Infectious Disease. We will continue same plan of care. MD JOANIE Her/MODL /[id number]
--- NOTE | 2019-01-03 13:44 | Consultation ---
DATE OF CONSULTATION: 01/03/2019 Cardiac Consultation REASON FOR CONSULTATION: Bradycardia in the 40s and 50s. HISTORY OF PRESENT ILLNESS: A 73-year-old gentleman, who is known with prostate problem. In June 2018, he had prostate surgery complicated by severe infection. He had become septic. He needed to be treated, then he came again with another sepsis. Again, he needed to be treated at this time diagnosed with pubic osteomyelitis. He is on IV antibiotics since then. Last dose was last week. He is followed by Dr. Millard. His other problems include hypertension, kidney stone. The patient came to this institution with severe left flank pain, diagnosed with left ureteral stone and he is in pain. There is no nausea, no vomiting. Today, it was noted his heart rate at almost 45-50. Cardiac consultation obtained. The patient is in pain. No nausea, no vomiting, no syncope or presyncope. Prior to this admission, the patient was able to do his usual physical activity without any angina or any other symptoms. There is no history of prior syncope or presyncope. There is no prior history of endocarditis diagnosis. REVIEW OF SYSTEMS: Extensive to all systems, will be summarized for clarity. GENERAL: No fever, no chills. The patient just recently finished a week ago his antibiotics with Dr. Millard and his PICC line was removed. HEENT: No vision, no hearing problem. PULMONARY: No cough. No hemoptysis. CARDIAC: No angina. No orthopnea. No syncope or presyncope. GI: No hematemesis. No melena. : Some urinary symptoms. MUSCULOSKELETAL: Nonspecific aches. NEUROLOGICAL: No seizure activity. The rest of the 14-point review of systems was unremarkable, namely there are no symptoms to suggest endocarditis. ALLERGIES: NONE. HOME MEDICATIONS: Include: 1. Simvastatin 40 mg a day. 2. Oxycodone p.r.n. 3. Prednisone 10 mg a day. 4. Flomax 0.4 mg a day. 5. Losartan 50 mg a day. 6. Trazodone 100 mg a day. PAST MEDICAL/SURGICAL HISTORY: 1. Prostate surgery twice, complicated by osteomyelitis of the pelvis and pubic. 2. Kidney stones. 3. Hypertension. 4. Hyperlipidemia. 5. Prostate problem. 6. Arthroscopic left knee surgery. FAMILY HISTORY: Positive for hypertension, diabetes mellitus, no premature coronary artery disease. SOCIAL HISTORY: He is . He smokes hookah, but he does not drink. He does not drink alcohol. PHYSICAL EXAMINATION: VITAL SIGNS: Height of 5 feet 7 inches, weight of 200 pounds, blood pressure 120/70, heart rate of 45, respiratory rate of 18, temperature of 96.7 Fahrenheit. HEENT: Pupils are equal and reactive. NECK: No elevation of jugular venous pulsation. CHEST: Clear to auscultation and percussion. HEART: PMI 5th left intercostal space. Normal first and second heart sounds. No additional murmur. No gallop. ABDOMEN: Soft with good bowel sounds. There is left flank tenderness and painful to palpation even. NEUROLOGICAL: Normal gait. No local or motor deficit. LABORATORY DATA: Sodium of 136, potassium of 5, BUN of 27, creatinine of 1.33. White blood cell count of 5.9, hemoglobin of 10.6, hematocrit 33.8%, platelet count of 153,000. EKG showing sinus bradycardia. The patient had CT abdomen and pelvis, which showed left ureteral nephrolithiasis and calculi's were seen. IMPRESSION AND PLAN: 1. Admission with kidney stone and left distal ureteral nephrolithiasis. 2. Pubic osteomyelitis. 3. Hypertension. 4. Hyperlipidemia. 5. Bradycardia, most likely differential diagnosis is secondary to pain, some form of vasovagal reaction. Other differential diagnosis including primary conduction abnormality, unlikely the patient having was history of infection, unlikely for him to have endocarditis and there are no clinical signs of subacute bacterial endocarditis. Regardless plan will be to observe the patient on telemetry and medicate his pain. IV hydration. We will check an echocardiogram. We will check blood cultures. We will check TSH. We will repeat his EKG. We will follow the patient's progression with you and I would like to thank you for your kind referral. MD AMARA Monreal/PAWAN /[id number]
--- NOTE | 2019-01-03 14:05 | NUR ---
Visit made by the Spiritual Care Department Pastoral Visitor, Gela Fortune. PV provided pastoral presence, prayer, hospitality, and supportive listening. Pastoral Visitor informed pt/family of the scope of [facility] [facility] and availability. JULIEN KAY Arson Investigator Spiritual Care Department O: [phone] Pager: [phone] ([phone] calling from)
--- NOTE | 2019-01-03 20:30 | NUR ---
Patient has constipation.hr is 44.notified to .given colace 200mg po.Aaox4.assessment done.no resp.distress.no pain voiced.bed locked and in lowest position.phone and call light within reach.instructed to call for assistance as needed.advised npo after 12mn.
[2019-01-03] MEDS ORDERED: DOCUSATE SODIUM 100 MG CAP PO NR (21:00)
[2019-01-03] MEDS: ATORVASTATIN 20 MG TAB PO SCH (21:17)
[2019-01-03] MEDS: TAMSULOSIN HCL 0.4 MG CAP PO SCH (21:17)
[2019-01-03] MEDS: SIMVASTATIN 40 MG TAB PO SCH (21:17)
[2019-01-03] MEDS ORDERED: CITRATE OF MAGNESIA 300ML BOTTLE PO PRN (23:00)
[2019-01-03] MEDS: TRAZODONE HCL 50 MG TAB PO PRN (23:08)
[2019-01-04] VITALS (9 sets, daily range): BP systolic 109–142; BP diastolic 53–78
--- NOTE | 2019-01-04 02:06 | NUR ---
Had no bowel movement. comfortably resting in the bed.on npo.
[2019-01-04] MEDS: CEFTRIAXONE SOD 1 GM/NS 50 ML 50 ML IV SCH (03:18)
[2019-01-04] MEDS: SODIUM CHLORIDE 0.9% 1000ML 1,000 ML IV SCH ×3 (03:18→19:24)
[2019-01-04] MEDS: HYDROMORPHONE 2MG/ML 2 MG/ML ML IV PRN ×3 (06:02→21:38)
--- NOTE | 2019-01-04 06:30 | NUR ---
BP NOTED 116/66 HR 48.STABLE CONDITION.
[2019-01-04 06:31] LABS: BASOPHILS % 0.3 % (0.0-1.0); EOSINOPHILS # (AUTO) 0.1 (0.0-0.4); EOSINOPHILS % 0.8 % (0.0-6.0); HEMATOCRIT 31.4 % (38.2-49.6); HEMOGLOBIN 10.3 g/dL (14.0-18.0); LYMPHOCYTES % 15.1 % (18.0-39.1); MEAN CORPUSCULAR HEMOGLOBIN 29.3 pg (28-32); MEAN CORPUSCULAR HGB CONC 32.8 g/dL (31-35); MEAN CORPUSCULAR VOLUME 89.5 fL (81-99); MONOCYTES # (AUTO) 0.3 (0.2-0.8); MONOCYTES % 5.2 % (4.4-11.3); NEUTROPHILS # (AUTO) 4.8 (2.1-6.9); NEUTROPHILS % 75.6 % (38.7-80.0); PLATELET COUNT 148 x10e3/uL (140-360); RED BLOOD COUNT 3.51 x10e6/uL (4.3-5.7); RED CELL DISTRIBUTION WIDTH 15.4 % (11.7-14.4)
--- NOTE | 2019-01-04 06:50 | NUR ---
Report given to the oncomng rn.walking rounds done.stable condition.
[2019-01-04 07:22] LABS: ALBUMIN 2.4 g/dL (3.5-5.0); ANION GAP 8.1 mmol/L (8-16); CALCIUM 8.2 mg/dL (8.4-10.2); CHOL/HDL RATIO 2.7 (3.9-4.7); CREATININE, SERUM 1.47 mg/dL (0.72-1.25); POTASSIUM 4.1 mmol/L (3.5-5.1)
[2019-01-04 07:28] LABS: THYROID STIMULATING HORMONE 1.153 uIU/mL (0.350-4.940)
[2019-01-04] MEDS ORDERED: IOPAMIDOL 610MG/1ML 300 MG/ML VIAL IV ONE (08:28)
[2019-01-04] MEDS ORDERED: B&O 60MG R/S 60 MG SUPP PR ONE (08:28)
--- NOTE | 2019-01-04 08:37 | NUR ---
20G IV BY CHARGE NURSE, TOLERATED WELL
--- NOTE | 2019-01-04 08:45 | NUR ---
WHEELED OFF UNIT VIA STRETCHER FOR OR, NO CHANGE IN CONDITION, FAMILY AT SIDE
[2019-01-04] MEDS: PREDNISONE 5 MG TAB PO SCH (08:52)
[2019-01-04] MEDS ORDERED: PREDNISONE 10 MG TAB PO SCH (09:00)
[2019-01-04] MEDS ORDERED: ACETAMINOPHEN/CODEINE 300MG - 30MG TAB PO PRN (10:45)
--- NOTE | 2019-01-04 11:14 | NUR ---
BACK IN ROOM VIA STRETCHER ,AMBULATED TO BED, REQUESTING TO GO HOME RIGHT NOW, EDUCATED THAT WILL NEED TO CALL MD FOR ORDERS, PT VERBALIZED UNDERSTANDING
--- NOTE | 2019-01-04 11:40 | NUR ---
MD WALKER INTO SEE PT, DISCUSSED POC, AWARE OF HR 47-59BPM
--- NOTE | 2019-01-04 11:44 | NUR ---
TELEPHONED MD ENRIQUEZ PER VERBAL ORDER, LEFT MESSAGE, AWAITING CALL BACK
--- NOTE | 2019-01-04 12:08 | NUR ---
PT MEDICATED PER MD ORDER FOR 05/18 LOW ABD AND URETHRA PAIN, EDUCATED TO NOT GET OOB WITHOUT CALLING FOR ASSISTANCE, VERBALIZED UNDERSTANDING, CALL LIGHT WITHIN REACH , AT SIDE
[2019-01-04] MEDS ORDERED: FENTANYL CITRATE/PF 100MCG/2 ML INJ ONE (13:35)
[2019-01-04] MEDS ORDERED: MIDAZOLAM HCL 2 MG/2 ML VIAL ONE (13:35)
--- NOTE | 2019-01-04 13:43 | Progress Note ---
DATE: 01/04/2019 Medicine Progress Note SUBJECTIVE: The patient is in the process of getting his cystoscopy with ureteral stent and stone retrieval. No other issues at this time. OBJECTIVE: VITAL SIGNS: Temperature is 97, pulse 51, blood pressure 116/64, and pulse ox 99% on 4 L nasal cannula. GENERAL: Not in acute distress. Alert and oriented x3. Cooperative on examination. HEENT: Head is normocephalic and atraumatic. Eyes; pupils are equal, round, and reactive to light bilaterally. Extraocular movements are intact bilaterally. Throat, no evidence of erythema or exudates in the posterior pharynx. Has poor dentition. NECK: Supple. Good range of motion. PULMONARY: Clear to auscultation bilaterally. No wheezing, no rales, no rhonchi, no crackles appreciated. CARDIOVASCULAR: Positive S1 and S2. No murmurs, rubs, or gallops appreciated. ABDOMEN: Soft, nondistended, and nontender to palpation. Bowel sounds present. MUSCULOSKELETAL: Strength is 5/5 throughout. No evidence of any muscle deficits on examination. No weakness appreciated. NEUROLOGICAL: Cranial nerves II through XII grossly intact. No evidence of any neurological deficits on exam. SKIN: Intact. Warm to touch. Good cap refill. PSYCHIATRIC: Normal affect and mood. EXTREMITIES: No edema. Good range of motion throughout. LABORATORY FINDINGS: Show white count 6.3, hemoglobin 7.3, hematocrit is 31, and platelets 138. Chemistry; sodium is 135, potassium 4.1, chloride 111, bicarb 21, anion gap of 8.1, BUN is 24, creatinine is 1.47 slightly increased, glucose is 82, and calcium is 8.2. LFTs were normal. Albumin 2.4. LDL is 90. TSH 1.1. Urinalysis found to be negative. MICROBIOLOGY: Blood cultures were negative. Urine cultures were negative. Repeat blood cultures were performed yesterday. He had been maintained afebrile. IMAGING STUDIES: None today. IMPRESSION: 1. Left distal ureteral nephrolithiasis leading to mild hydronephrosis with 7 mm stone. 2. Recent pubic symphysis, osteomyelitis, completed IV antibiotic therapy. 3. Hypertension. 4. Hyperlipidemia. 5. Sinus bradycardia. PLAN: He is scheduled for cystoscopy today, which he is currently in the procedure room for possible lithotripsy and ureteral stent placement. ID and Urology are following closely. In relation to his sinus bradycardia, Cardiology saw the patient. The patient is to proceed with the procedure. Continue with pain control with Dilaudid. Get a.m. labs. His creatinine is slightly elevated, but sure this is secondary to postobstructive on top of that with Toradol, but Toradol has been discontinued. We will get a.m. labs and monitor closely. MD JOANIE Her/MODL /[id number]
[2019-01-04] MEDS: PHENAZOPYRIDINE HCL 100 MG TAB PO SCH ×2 (13:46→18:20)
--- NOTE | 2019-01-04 14:33 | Progress Note ---
DATE: 01/04/2019 SUBJECTIVE: Mr. Garcia is seen and examined. He did have the procedure, status post lithotripsy, fragmentation of stones, and placement of a stent. The patient is doing well. There are no complaints. This patient is a very pleasant 73-year-old gentleman, who has history of prostatitis and status post TURP who had complication with prostatitis, had osteomyelitis of the pubic bone which was treated with IV meropenem for 8 weeks. Coming with left flank pain, found to have a renal stone. The patient underwent procedure today by Dr. Nicolas. Please refer to his note. He is doing much better. PAST MEDICAL HISTORY: Hypercholesteremia, hypertension, prostate surgery, prostatitis, TURP x2 with complication, osteomyelitis of pubic bone, and kidney stone. ALLERGIES: NKA. SOCIAL HISTORY: No smoking, drug abuse, or alcohol abuse. FAMILY HISTORY: Hypertension and diabetes. REVIEW OF SYSTEMS: At the present time, HEENT: Negative. PULMONARY: Negative. CARDIAC: Negative. : Negative. SKIN: There is no other rash. LABORATORY DATA: Reviewed. His urine culture is negative. His blood cultures are negative. His white count is 6.3, hemoglobin 12.3, and his platelets of 196. Sodium 135, potassium 4.1, and creatinine 1.02. IMPRESSION: 1. Renal stone, doing much better. 2. Component of acute kidney injury secondary to dehydration seems to have resolved. Also, his creatinine from 1.47 came down to 1.02. 3. Prostatitis, treated. So far, all cultures are negative. Currently on Rocephin. 4. Renal stone. From Infectious Disease point of view, the patient can be discharged home. Continue to wean his prednisone as an outpatient. Discussed with the patient. From Infectious Disease point of view, doing well. MD TERI Crews/MODL /[id number]
--- NOTE | 2019-01-04 17:00 | NUR ---
TOLERATING PO AT THIS TIME, PAIN CONTROLLED, VISITING WITH FAMILY, VOICES NO NEEDS, CALL LIGHT WITHIN REACH
[2019-01-04] MEDS ORDERED: LIDOCAINE HCL 2% LOCAL INJ 5 ML SDV VIAL INJ ONE (17:14)
[2019-01-04] MEDS ORDERED: PROPOFOL IV EMULSION 10 MG/ML 20 ML VIAL ONE (17:14)
[2019-01-04] MEDS ORDERED: SEVOFLURANE INHAL SOLN 250 ML PEN BTL ONE (17:14)
[2019-01-04] MEDS ORDERED: LIDOCAINE HCL 2% JELLY 5 ML TUBE ONE (17:14)
[2019-01-04] MEDS ORDERED: SUCCINYLCHOLINE 200 MG/10 ML SYR ONE (17:14)
[2019-01-04] MEDS ORDERED: DEXAMETHASONE SOD PHOS INJ 4 MG/ML VIAL ONE (17:14)
[2019-01-04] MEDS ORDERED: ONDANSETRON HCL INJ 2MG/ML 2ML 2 MG/ML VIAL ONE (17:14)
[2019-01-04] MEDS: OXYBUTYNIN CHLORIDE 5 MG TAB PO SCH (17:43)
--- NOTE | 2019-01-04 18:01 | NUR ---
DOCUMENTUM CONSULTANT SPOKE WITH MD ELLIS, AWARE OF CONSULT
[2019-01-04] MEDS: TAMSULOSIN HCL 0.4 MG CAP PO SCH (21:37)
[2019-01-04] MEDS: SIMVASTATIN 40 MG TAB PO SCH (21:38)
[2019-01-04] MEDS: ATORVASTATIN 20 MG TAB PO SCH (21:38)
[2019-01-04] MEDS: TRAZODONE HCL 50 MG TAB PO PRN (21:38)
--- NOTE | 2019-01-04 21:51 | NUR ---
Went to patients room at 2135 to give evening medications per patients request earlier on in the shift. Patient informed me that he does not want anyone in the room until 6am. I informed the patient and of the importance of vital signs and medications. I informed him of an antibiotic that is due around 0345 am. He stated that he does not want the antibiotic until 6am. He was made aware of the vitals signs and medications he will be missing per his request. Sign to do not disturb was placed on the door. Tech was also made aware of the patients request.
--- NOTE | 2019-01-05 01:06 | NUR ---
per patient request no one in the room until 6 am. patient is in bed on back sleeping, no signs of pain or discomfort at this time. Family member in room sleeping
[2019-01-05 04:00] VITALS: BP 169/79
[2019-01-05] MEDS: CEFTRIAXONE SOD 1 GM/NS 50 ML 50 ML IV SCH (04:06)
[2019-01-05] MEDS: HYDROMORPHONE 2MG/ML 2 MG/ML ML IV PRN ×2 (04:20→10:57)
[2019-01-05] MEDS: SODIUM CHLORIDE 0.9% 1000ML 1,000 ML IV SCH (04:21)
[2019-01-05 05:51] LABS: BASOPHILS % 0.3 % (0.0-1.0); EOSINOPHILS % 0.6 % (0.0-6.0); HEMATOCRIT 33.4 % (38.2-49.6); HEMOGLOBIN 10.8 g/dL (14.0-18.0); LYMPHOCYTES # (AUTO) 0.9 (1.0-3.2); MEAN CORPUSCULAR HEMOGLOBIN 29.7 pg (28-32); MEAN CORPUSCULAR HGB CONC 32.3 g/dL (31-35); MEAN CORPUSCULAR VOLUME 91.8 fL (81-99); MONOCYTES # (AUTO) 0.4 (0.2-0.8); MONOCYTES % 5.6 % (4.4-11.3); NEUTROPHILS # (AUTO) 5.5 (2.1-6.9); NEUTROPHILS % 77.6 % (38.7-80.0); PLATELET COUNT 168 x10e3/uL (140-360); RED BLOOD COUNT 3.64 x10e6/uL (4.3-5.7); RED CELL DISTRIBUTION WIDTH 15.3 % (11.7-14.4)
[2019-01-05 06:13] LABS: ANION GAP 8.7 mmol/L (8-16); BLOOD UREA NITROGEN 19 mg/dL (7-26); BUN/CREATININE RATIO 17 (6-25); CALCIUM 8.6 mg/dL (8.4-10.2); CARBON DIOXIDE 26 mmol/L (22-29); CHLORIDE 108 mmol/L (98-107); CREATININE, SERUM 1.12 mg/dL (0.72-1.25); EST GLOMERULAR FILTRATION RATE > 60 ML/MIN (60-); GLUCOSE 102 mg/dL (74-118); POTASSIUM 4.7 mmol/L (3.5-5.1); SODIUM 138 mmol/L (136-145)
[2019-01-05 07:54] VITALS: BP 146/66
--- NOTE | 2019-01-05 08:35 | NUR ---
List of home medications updated and reviewed with patient and and current home meds on list now accurate. No longer on Simvastatin and Prednisone
[2019-01-05] MEDS: PREDNISONE 5 MG TAB PO SCH (08:36)
[2019-01-05] MEDS: PHENAZOPYRIDINE HCL 100 MG TAB PO SCH ×2 (08:36→13:00)
[2019-01-05] MEDS: OXYBUTYNIN CHLORIDE 5 MG TAB PO SCH ×2 (08:36→16:37)
[2019-01-05 09:38] VITALS: BP 146/66
--- NOTE | 2019-01-05 10:30 | NUR ---
Rounds by DULCE Garay for ID and orders to give one dose of Lasix 40mg IV and patient will need to stay in the hospital one more night due to fluid build up
[2019-01-05] MEDS ORDERED: FUROSEMIDE INJ 10 MG/ML 4 ML VIAL IV ONE (10:45)
[2019-01-05] MEDS ORDERED: ZOLPIDEM TARTRATE 5 MG TAB PO PRN (11:00)
[2019-01-05 11:28] LABS: BAND NEUTROPHILS % (MANUAL) 1 %; LYMPHOCYTES % (MANUAL) 7 % (19-48); MONOCYTES % (MANUAL) 4 % (3.4-9.0); MYELOCYTES % (MANUAL) 1 % (0-0); NEUTROPHILS % (MANUAL) 86 % (40-74)
--- NOTE | 2019-01-05 11:48 | Diagnostic Imaging Report ---
EXAM: CHEST SINGLE (PORTABLE) DATE: 01/05/2019 10:44 AM INDICATION: ^Fluid overload ^[id number] ^1040 COMPARISON: Chest x-ray, 12/08/2018 FINDINGS: Lines and tubes: None. Previous left PICC no longer seen. Heart size normal. Patchy opacities developed at the left lung base likely representing atelectasis. No pleural effusion or pneumothorax. No evidence for pulmonary vascular congestion. Upper abdomen unremarkable. No acute bony abnormality. IMPRESSION: Normal heart size with no evidence for pulmonary vascular congestion. Mild atelectasis has developed at the left lung base. Signed by: Dr. Julián Merino M.D. on 01/05/2019 11:45 AM
[2019-01-05] MEDS: HYDROCODONE/APAP 5MG-325MG TAB PO PRN (11:54)
--- NOTE | 2019-01-05 12:05 | NUR ---
Venous duplex to left arm done, clot found on jugular and subclavian. Account Support Rep, Dr. barcenas rounding and notified at this time
[2019-01-05 12:25] LABS: ANISOCYTOSIS SLIGHT; HYPOCHROMASIA SLIGHT; PLATELET ESTIMATE ADEQUATE; PLATELET MORPHOLOGY COMMENT NORMAL; RBC MORPHOLOGY COMMENT NORMAL
[2019-01-05 12:41] VITALS: BP 138/72
--- NOTE | 2019-01-05 12:59 | Progress Note ---
DATE: 01/05/2019 Medicine Progress Note SUBJECTIVE: The patient reports having some swelling in the left upper extremity. Venous doppler has been ordered. and face is swollen. I stopped the IV fluids and gave him Lasix. Pain is better controlled. He is now status post left ureteral stent placement performed yesterday by Dr. Nicolas. OBJECTIVE: VITAL SIGNS: Temperature is 96.8, pulse 59, respiratory rate is 20, blood pressure 146/66, pulse ox 97% on room air. GENERAL: Not in acute distress. Alert and oriented x3. Cooperative on examination. HEENT: Head is normocephalic and atraumatic. Eyes; pupils are equal, round, and reactive to light bilaterally. Extraocular movements are intact bilaterally. Throat, no evidence of erythema or exudates in the posterior pharynx. Has poor dentition. NECK: Supple. Good range of motion. PULMONARY: Clear to auscultation bilaterally. No wheezing, no rales, no rhonchi, no crackles appreciated. CARDIOVASCULAR: Positive S1 and S2. No murmurs, rubs, or gallops appreciated. ABDOMEN: Soft, nondistended, and nontender to palpation. Bowel sounds present. MUSCULOSKELETAL: Strength is 5/5 throughout. No evidence of any muscle deficits on examination. No weakness appreciated. NEUROLOGICAL: Cranial nerves II through XII grossly intact. No evidence of any neurological deficits on exam. SKIN: Intact. Warm to touch. Good cap refill. PSYCHIATRIC: Normal affect and mood. EXTREMITIES: No edema. Good range of motion throughout. LABORATORY DATA: Lab findings show white count of 7.1, hemoglobin of 10.0, hematocrit is 33, platelets of 168. Chemistry; sodium 138, potassium 4.7, chloride 108 bicarb 26, anion gap of 8.7, BUN 19, creatinine is 1.1, calcium is 8.6. Urinalysis negative. MICROBIOLOGY: All cultures are negative. IMPRESSION: 1. Left distal ureteral nephrolithiasis with mild hydronephrosis and a 7 mm stone status post left ureteral stent placement with lithotripsy performed. 2. Recent pubic symphysis with osteomyelitis completed IV antibiotic therapy. 3. Hypertension. 4. Hyperlipidemia. 5. Sinus bradycardia. 6. Left upper extremity swelling concerning for thrombophlebitis versus IV infiltration. 7. Edema. PLAN: At this time, he now is status post ureteral stent placement with lithotripsy and stent insertion. Continue with pain control. Get a.m. labs. Put on Lasix for IV diuretics due to swelling. Stopped IV fluids. Get left upper extremity venous Doppler to rule out any thrombophlebitis, DVT or any other etiology. But the nurse reports that this is likely secondary to infiltrated IV. PT/OT is working with the patient. I also ordered it for outpatient as well. I ordered a chest x-ray as well. Otherwise, continue same plan of care. MD JOANIE Her/MODL /[id number]
--- NOTE | 2019-01-05 13:45 | NUR ---
Call back from Dr. Nicole and d/c'd order for Eliquis due to history of hemorrhagic stroke
[2019-01-05 15:59] VITALS: BP 137/72
[2019-01-05] MEDS ORDERED: FUROSEMIDE INJ 10 MG/ML 4 ML VIAL IV SCH (16:00)
--- NOTE | 2019-01-05 16:53 | NUR ---
Rounds by Dr. Millard, reviewed patients plan of care, CXR negative for congestion, ok to discharge patient from his perspective, Dr. Nicolas cleared patient for discharge as well. Dr. Nicole notified and orders to d/c patient. Prescriptions provided by Dr. Millard, and some by Dr. Katz who saw patient in the morning and some by Dr. Nicolas.
[2019-01-05] MEDS ORDERED: APIXABAN 5 MG TABLET PO SCH (17:00)
[2019-01-05] MEDS ORDERED: KETOROLAC TROME10 MG PO (17:00)
[2019-01-05] MEDS ORDERED: TYLENOL WITH C1 EACH PO (17:01)
[2019-01-05] MEDS ORDERED: DITROPAN XL5 MG PO (17:02)
--- NOTE | 2019-01-05 19:46 | Progress Note ---
DATE: 01/05/2019 CHIEF COMPLAINT: The patient who is here originally with back pain, he was found to have a renal stone. The patient was seen by Urology, Dr. Nicolas, underwent placement of a stent yesterday. Today, when we first saw the patient in the morning, he had generalized edema and swelling. I felt, he had fluid overload and he was given Lasix 40 mg now since then I revisit the patient this afternoon and he is doing much better, but it was also noted there were some edema in the left upper extremity. A doppler was done, it was read by Dr. Brock and there is DVT in the subclavian vein. The patient apparently had history of cerebral aneurysm 12 years ago with stroke. We do not have the details, but he was told back then not to take anticoagulation, but since then the patient had no other neurological symptoms. I had a very long discussion with all the physicians, Dr. Brock, as well as Dr. Nicole, we felt benefit versus the risk of putting on anticoagulation, we can just observe the patient clinically. The patient is currently alert, oriented, doing well. No complaints whatsoever. REVIEW OF SYSTEMS: There is no pain. No nausea, no vomiting, no diarrhea, no urgency. No frequency. No skin rash. There is no edema. His arm is much better. PHYSICAL EXAMINATION: GENERAL: He is currently alert, oriented, does not seem to be in acute distress. VITAL SIGNS: Stable, currently afebrile. HEENT: He is not icteric. NECK: Supple. CHEST: Clear. HEART: S1, S2. No S3, S4, or murmur. ABDOMEN: Soft. Bowel sounds present. No tenderness. No hepatosplenomegaly. EXTREMITIES: No edema. IMPRESSION: 1. Generalized edema, fluid overload, treated with Lasix. 2. Hypertension. Continue with losartan 50 mg daily. 3. Insomnia. Continue with trazodone 100 mg p.o. at bedtime. 4. Subclavian deep vein thrombosis. I spoke with Dr. Brock. There is a component of chronicity, which probably took place a few days ago, maybe a couple of weeks ago. It is hard to tell. The risk of PE is today is slim. The risk for anticoagulation is higher than the benefit. We will give the patient aspirin 1 p.o. daily. No coagulation. 5. Renal stone status post stent placement. He is going to see Dr. Nicolas in one month. 6. 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 The repeat culture is negative. Repeat MRI was fine. There was no abscess or fistula. Overall, the patient improved. 7. History of pain with arthritis. He is off prednisone, off pain medicine right now. Can use Tylenol No. 3 if he needs to, but I would recommend just continue with local care and PT and OT. 8. Stable from Infectious Disease point of view. Discussed with the doctor. We will discharge the patient. I have written the prescription for him. I reviewed his labs. Time spent 45 minute with the patient and with all physicians, more than 50% was with the patient and his . MD TERI Crews/PAWAN /[id number]
--- NOTE | 2019-01-07 11:14 | Discharge Summary ---
FINAL DISCHARGE DIAGNOSES: 1. Left distal ureteral nephrolithiasis with mild hydronephrosis status post left ureteral stent placement with lithotripsy performed. 2. Recent pubic symphysis with osteomyelitis, completed IV antibiotic therapy. 3. Hypertension. 4. Hyperlipidemia. 5. Sinus bradycardia, asymptomatic. 6. Left upper extremity thrombophlebitis. 7. Lower extremity edema resolved. CONSULTANTS: Cardiology, Urology and Infectious Disease. PHYSICAL EXAMINATION: VITAL SIGNS: Temperature is 97.7, pulse 87, respiratory rate 20, blood pressure 137/72, pulse ox 97% on room air. LABORATORY DATA: Lab findings show white count of 7.1, hemoglobin 10.8, hematocrit 33, platelets of 168. Chemistry; sodium 138, potassium 4.7, chloride 108, bicarb 26, anion gap of 8.7, BUN 19, creatinine is 1.1, glucose is 102, calcium is 8.6. LFTs were normal. TSH is 1.1. Urinalysis was negative. MICROBIOLOGY: Blood cultures were negative. Urine cultures were negative. IMAGING STUDIES: Chest x-ray was found to show no evidence of any pulmonary effusion. CT abdomen and pelvis was consistent with a 7 mm left ureteral nephrolithiasis calculus. Bilateral intrarenal calculi, left larger than right is seen. Shows evidence of mild left hydronephrosis. HOSPITAL COURSE: This is a 73-year-old male, who comes into the come to the ED with complaints of left-sided flank pain. The patient was admitted and Urology was consulted. Imaging studies consistent with a 7 mm left ureteral nephrolithiasis with mild hydronephrosis seen. The patient underwent cystoscopy with left ureteral stent placement with lithotripsy. The patient was then cleared for discharge by Urology with outpatient followup for further management and care and staple removal at a later date. ID was consulted for further management and care as well due to a prior history of osteomyelitis of the pubic symphysis. Cardiology was consulted for underlying sinus bradycardia, which was asymptomatic with no further intervention needed. He did have a left upper extremity venous Doppler that showed a mild thrombophlebitis in the superficial veins and recommended aspirin and warm compresses. The patient also has a history according to him a history of a hemorrhagic stroke in which he cannot take any anticoagulation like Eliquis or Xarelto. At this time, we opted for a low-dose aspirin with close followup with Cardiology and his primary care physician. Family verbalized understanding. On the day of discharge, vital signs stable, labs reviewed and stable. The patient was seen, evaluated, and examined thoroughly on the day of discharge. No other complaints. The patient verbalized understanding and agreed to plan of care. Followup appointment as an outpatient with PCP in 1 week, urologist is two weeks' time. MEDICATIONS: See med reconciliation form. DISPOSITION: Home. CONDITION: Stable. DIET: Heart healthy. In the event of any worsening symptoms, the patient was advised to come back to the ED for further evaluation. Discharge summary took greater than 35 minutes. MD JOANIE Her/PAWAN /[id number]
[2019-01-31] MEDS ORDERED: FLUCONAZOLE100 MG PO (16:56)
--- NOTE | 2019-02-14 07:49 | Operative Report ---
DATE OF PROCEDURE: 01/04/2019 SURGEON: Jaya Nicolas MD PREOPERATIVE DIAGNOSES: 1. Left ureterolithiasis. 2. Left nephrolithiasis. 3. Urinary tract infections. POSTOPERATIVE DIAGNOSES: 1. Left ureterolithiasis. 2. Left nephrolithiasis. 3. Urinary tract infections. 4. Two bladder lesions in the posterior bladder wall. 5. Bladder stone. OPERATION PERFORMED: 1. Cystourethroscopy with cystolitholapaxy (separate procedure performed for the bladder stone). 2. Cystourethroscopy with bilateral ureteral catheterization and retrograde ureteropyelography (separate procedure performed for the urinary tract infections). 3. Interpretation of retrograde ureteropyelography. 4. Left ureteroscopy with holmium laser lithotripsy and insertion of stent (separate procedure performed for the obstructing left ureterolithiasis). 5. Left ureteroscopy with holmium laser lithotripsy of left nephrolithiasis (separate procedure performed with separate scope for the diagnosis of nephrolithiasis). 6. Radiological services with supervision and interpretation of ureteroscopy. 7. Cystourethroscopy with transurethral resection of bladder tumors. ANESTHESIA: General. COMPLICATIONS: None. CLINICAL SUMMARY: Jose Garcia is a 73-year-old man with the above preoperative diagnoses. He is brought for the above procedures. He is aware of the risks of bleeding, infection, injury to adjacent structures, need for additional procedures and elected to proceed. OPERATIVE PROCEDURE IN DETAIL: Informed consent was verified. Jose Garcia was properly identified and taken to the operating room, placed on the cystoscopy table in supine position. Anesthesia was uneventfully begun. The patient was then carefully gently repositioned in dorsal lithotomy position. All pressure points were padded. His genitalia were prepared and draped in the usual sterile fashion. The cystoscope sheath with the visual obturator in place was atraumatically inserted into the patient's urethra, was guided down in a normal distal urethra towards the penile urethra significant for blanching and scarring. As we approached the more proximal urethra, there were false channels posteriorly. The true urethral lumen was anteriorly. We went into this lumen, went through his normal sphincteric region, went into the prostate bed, which was significant for being open, status post transurethral resection of the prostate. Bladder stones identified within the prostate bed. The stone was loosened, it was grasped, fragmented and extracted. Panendoscopy near the bladder revealed two lesions in posterior bladder wall. These were of uncertain nature. A ureteral catheter was used to cannulate the right ureter and retrograde ureteropyelography were performed. It was then inserted in the left ureter and retrograde ureteropyelography was performed. We inserted a guidewire into the left ureter and guided to the level of the patient's kidney. Semi-rigid ureteroscope was then placed alongside the guidewire and guided into the left ureter. We identified the stone. We performed holmium laser lithotripsy of the stone and left a secondary guidewire in place. We then placed a flexible ureteroscope over the guidewire and guided to the level of the patient's kidney. We identified additional stone. This stone underwent holmium laser lithotripsy with fragmentation into small pieces that were too small to grasp. With cystoscopic and fluoroscopic guidance, the left-sided indwelling ureteral stent was then placed to scope the patient's kidneys as well as the patient's bladder. The retaining suture was cut short. Interpretation of retrograde ureteropyelography: Contrast was instilled in retrograde fashion bilaterally. The left side exhibited hydroureteronephrosis down to the level of the obstructing ureteral stone. The stent was in good position. It was coiled in the patient's kidney as well as the patient's bladder at the end of the case. The right side was unremarkable. There were no tumors, no stones, and no diverticula. Unobstructed drainage was observed fluoroscopically. Cold cup biopsy forceps was then utilized to perform biopsies of the posterior bladder wall lesions. We then utilized a Bugbee electrode to fulgurate the base of these lesions as well as the region around it. The total diameter of tumors that were treated was over 3 cm in size. We verified good hemostasis. The patient's bladder was drained. The cystoscope was withdrawn. Belladonna and opium suppository were placed revealing a 40 g prostate that is smooth, nonfluctuant without any nodules. The patient was then uneventfully reversed from anesthesia and taken to recovery room in stable condition. There were no complications at the end of the procedure. The patient tolerated the procedure well. We will follow the patient up during his inpatient course and of course follow him as an outpatient to perform a left ureteroscopy with stone removal of any residual stones as well as removal of his stent. Jaya MD LIT Nicolas /[id number]
[2019-03-29] MEDS ORDERED: VITAMIN B-121000 MCG PO (11:36)
[2019-03-29] MEDS ORDERED: VITAMIN B-650 MG PO (11:36)
[2019-03-29] MEDS ORDERED: POTASSIUM CITR10 MEQ PO (11:36)
== END 2019-01-05 17:50 | disposition home or self-care (01) | DRG 660 ==
LOC: ER 02:09 → ERHOLD 03:44 → MED/SURG 04:50
PROVIDERS: ADMIT Internal Medicine; ATTEND Internal Medicine
PROC: 0T778DZ Dilation of Left Ureter with Intraluminal Device, Via Natural or Artificial Opening Endoscopic (ICD-10-PCS; 2019-01-04)
PROC: 0TCB8ZZ Extirpation of Matter from Bladder, Via Natural or Artificial Opening Endoscopic (ICD-10-PCS; 2019-01-04)
PROC: BT1F1ZZ Fluoroscopy of Left Kidney, Ureter and Bladder using Low Osmolar Contrast (ICD-10-PCS; 2019-01-04)
PROC: 0TBB8ZX Excision of Bladder, Via Natural or Artificial Opening Endoscopic, Diagnostic (ICD-10-PCS; principal; 2019-01-04 09:18)
PROC: 0TC18ZZ Extirpation of Matter from Left Kidney, Via Natural or Artificial Opening Endoscopic (ICD-10-PCS; 2019-01-04 09:18)
PROC: 0TC78ZZ Extirpation of Matter from Left Ureter, Via Natural or Artificial Opening Endoscopic (ICD-10-PCS; 2019-01-04 09:18)
DX: N13.2 Hydronephrosis with renal and ureteral calculous obstruction (principal); I82.622 Acute embolism and thrombosis of deep veins of left upper extremity; E87.70 Fluid overload, unspecified; G47.00 Insomnia, unspecified; I10 Essential (primary) hypertension; R00.1 Bradycardia, unspecified; E78.5 Hyperlipidemia, unspecified
CPT/HCPCS: 36415; 71045; 74018; 74176; 74420; 80048; 80053; 80061; 81001; 84443; 85025; 87040; 87086; 88300; 88305; 93005; 93306; 93971; 99284; C1758; C1874; J0696; J1100; J1885; J1940; J2001; J2250; J2405; J3010; J7030; J7512; Q0162

== ENCOUNTER 2019-01-23 10:47 | Emergency (ER) | payer MEDICARE, OTHER ==
[~2019-01-23] VITALS: Ht 170.2 cm; Wt 90.7 kg
[~2019-01-23 10:47] MED LIST changes: +DITROPAN XL5 MG PO; +KETOROLAC TROME10 MG PO; +TYLENOL WITH C1 EACH PO
--- OUTSIDE RECORDS SUMMARY | 2019-01-23 10:50 | XMS REPORT | Clinical Summary ---
Author Author [facility]va [facility] Organization [place] [facility] Address Unknown Phone Unavailable Care Team Providers Care Winder Hand Name Role Phone Carlos Peña DO PCP [...] tract infection with hematuria, site unspecified 07/07/2018 [facility] General Internal Medicine - Encounter 07/12/2018 Ruben Seth MD Cysto Retrograde-Bilateral 02/15/2018 Surgery General Surgery Mainor Mims MD 02/15/2018 Anesthesia General Surgery Event Ruben Seth MD 02/15/2018 Hospital General Surgery Encounter Ruben Seth MD Preoperative testing (Primary Dx) 02/10/2018 Pre-Admit Pre-Admission Testing Testing Appointment after 01/22/2018 Immunizations Name Dates Previously Given Next Due [...] Taken Vital Sign Reading 10/07/2018 4:04 PM SCIENTIFIC PROCESS OPERATOR Blood Pressure 130/74 10/07/2018 4:04 PM SCIENTIFIC PROCESS OPERATOR Pulse 62 10/07/2018 4:04 PM SCIENTIFIC PROCESS OPERATOR Temperature 36.1 C (97 F) 10/07/2018 4:04 PM SCIENTIFIC PROCESS OPERATOR Respiratory Rate 19 10/07/2018 4:04 PM SCIENTIFIC PROCESS OPERATOR Oxygen Saturation 95% - Inhaled Oxygen - Concentration 10/03/2018 12:17 PM SCIENTIFIC PROCESS OPERATOR Weight 76.2 kg (168 lb) 10/03/2018 12:17 PM SCIENTIFIC PROCESS OPERATOR Height 170.2 cm (5' 7") 10/03/2018 12:17 PM SCIENTIFIC PROCESS OPERATOR Body Mass Index 26.31 Plan of Treatment Health Maintenance Due Date Last Done Comments COLONOSCOPY SCREENING 12/08/1995 SHINGLES VACCINES (#1) 12/08/1995 INFLUENZA VACCINE 03/09/2019 07/12/2018 65+ PNEUMOCOCCAL VACCINE 07/12/2019 07/12/2018 (2 of 2 - PPSV23) Procedures Comments Procedure Name Priority Date/Time Associated Diagnosis NM BONE SCAN WHOLE BODY Routine 10/07/2018 3:51 PM SCIENTIFIC PROCESS OPERATOR XR HIP 2-3 VIEWS RIGHT Routine 10/07/2018 1:32 PM SCIENTIFIC PROCESS OPERATOR US DUPLEX VENOUS LOWER Routine 10/07/2018 EXTREMITY BILATERAL 10:37 AM SCIENTIFIC PROCESS OPERATOR MRI PELVIS W WO CONTRAST Routine 10/06/2018 5:50 [address]ESS [address] ABDOMEN PELVIS W Routine 10/06/2018 CONTRAST 5:35 PM SCIENTIFIC PROCESS OPERATOR ESTIMATED GFR Routine 10/06/2018 5:53 AM SCIENTIFIC PROCESS OPERATOR BASIC METABOLIC PANEL Routine 10/06/2018 5:53 AM SCIENTIFIC PROCESS OPERATOR HC COMPLETE BLD COUNT Routine 10/06/2018 W/AUTO DIFF 5:53 AM SCIENTIFIC PROCESS OPERATOR ESTIMATED GFR Routine 10/05/2018 5:18 AM SCIENTIFIC PROCESS OPERATOR BASIC METABOLIC PANEL Routine 10/05/2018 5:18 AM SCIENTIFIC PROCESS OPERATOR HC COMPLETE BLD COUNT Routine 10/05/2018 W/AUTO DIFF 5:18 AM SCIENTIFIC PROCESS OPERATOR SURGICAL PATHOLOGY Routine 10/04/2018 REQUEST 1:48 PM SCIENTIFIC PROCESS OPERATOR MA AN ELECTIVE Routine 10/04/2018 SUPRAGLOTTIC AIRWAY 11:07 AM SCIENTIFIC PROCESS OPERATOR Procedure Note - Bhavik Burt CRNA - 10/04/2018 11:07 AM SCIENTIFIC PROCESS OPERATOR Airway Date/Time: 10/04/2018 11:02 AM Performed [...] 1 ESTIMATED GFR Routine 10/04/2018 6:13 AM SCIENTIFIC PROCESS OPERATOR COMPREHENSIVE METABOLIC Routine 10/04/2018 PANEL 6:13 AM SCIENTIFIC PROCESS OPERATOR PROTHROMBIN TIME WITH INR Routine 10/04/2018 6:13 AM SCIENTIFIC PROCESS OPERATOR HC COMPLETE BLD COUNT Routine 10/04/2018 W/AUTO DIFF 6:13 AM SCIENTIFIC PROCESS OPERATOR URINE CULTURE STAT 10/03/2018 6:01 PM SCIENTIFIC PROCESS OPERATOR GRAM STAIN STAT 10/03/2018 6:01 PM SCIENTIFIC PROCESS OPERATOR URINALYSIS SCREEN AND STAT 10/03/2018 MICROSCOPY, WITH REFLEX 5:27 PM SCIENTIFIC PROCESS OPERATOR TO CULTURE XR CHEST 1 VW PORTABLE STAT 10/03/2018 3:42 PM SCIENTIFIC PROCESS OPERATOR TYPE AND SCREEN Routine 10/03/2018 3:30 PM SCIENTIFIC PROCESS OPERATOR PARTIAL THROMBOPLASTIN STAT 10/03/2018 TIME (PTT) 3:30 PM SCIENTIFIC PROCESS OPERATOR PROTHROMBIN TIME WITH INR STAT 10/03/2018 3:30 PM SCIENTIFIC PROCESS OPERATOR HC COMPLETE BLD COUNT STAT 10/03/2018 W/AUTO DIFF 3:30 PM SCIENTIFIC PROCESS OPERATOR ECG ED PRELIMINARY Routine 10/03/2018 INTERPRETATION 3:08 PM SCIENTIFIC PROCESS OPERATOR MRI LUMBAR SPINE WO STAT 10/03/2018 CONTRAST 3:08 PM SCIENTIFIC PROCESS OPERATOR ECG 12-LEAD STAT 10/03/2018 1:54 PM SCIENTIFIC PROCESS OPERATOR POC GLUCOSE Routine 07/11/2018 11:40 AM SCIENTIFIC PROCESS OPERATOR ESTIMATED GFR Routine 07/11/2018 8:40 AM SCIENTIFIC PROCESS OPERATOR COMPREHENSIVE METABOLIC Routine 07/11/2018 PANEL 8:40 AM SCIENTIFIC PROCESS OPERATOR HC COMPLETE BLD COUNT Routine 07/11/2018 W/AUTO DIFF 8:40 AM SCIENTIFIC PROCESS OPERATOR ECHOCARDIOGRAM 2D Routine 07/09/2018 COMPLETE W MMODE SPECTRAL 8:57 PM SCIENTIFIC PROCESS OPERATOR COLOR DOPPLER ([id number]) ARTERIAL BLOOD GAS STAT 07/09/2018 7:29 PM SCIENTIFIC PROCESS OPERATOR ECG 12-LEAD STAT 07/09/2018 7:09 PM SCIENTIFIC PROCESS OPERATOR BLOOD CULTURE, AEROBIC & Routine 07/09/2018 ANAEROBIC 7:03 PM SCIENTIFIC PROCESS OPERATOR C-REACTIVE PROTEIN STAT 07/09/2018 6:59 PM SCIENTIFIC PROCESS OPERATOR ESTIMATED GFR STAT 07/09/2018 6:59 PM SCIENTIFIC PROCESS OPERATOR LIPASE LEVEL STAT 07/09/2018 6:59 PM SCIENTIFIC PROCESS OPERATOR PHOSPHORUS LEVEL STAT 07/09/2018 6:59 PM SCIENTIFIC PROCESS OPERATOR PROCALCITONIN STAT 07/09/2018 6:59 PM SCIENTIFIC PROCESS OPERATOR PROTHROMBIN TIME WITH INR STAT 07/09/2018 6:59 PM SCIENTIFIC PROCESS OPERATOR PARTIAL THROMBOPLASTIN STAT 07/09/2018 TIME (PTT) 6:59 PM SCIENTIFIC PROCESS OPERATOR MAGNESIUM LEVEL STAT 07/09/2018 6:59 PM SCIENTIFIC PROCESS OPERATOR CREATINE KINASE, TOTAL STAT 07/09/2018 (CPK) 6:59 PM SCIENTIFIC PROCESS OPERATOR TROPONIN STAT 07/09/2018 6:59 PM SCIENTIFIC PROCESS OPERATOR THYROID STIMULATING STAT 07/09/2018 HORMONE 6:59 PM SCIENTIFIC PROCESS OPERATOR T4, FREE STAT 07/09/2018 6:59 PM SCIENTIFIC PROCESS OPERATOR LACTIC ACID LEVEL STAT 07/09/2018 6:59 PM SCIENTIFIC PROCESS OPERATOR IONIZED CALCIUM STAT 07/09/2018 6:59 PM SCIENTIFIC PROCESS OPERATOR COMPREHENSIVE METABOLIC STAT 07/09/2018 PANEL 6:59 PM SCIENTIFIC PROCESS OPERATOR HC COMPLETE BLD COUNT STAT 07/09/2018 W/AUTO DIFF 6:59 PM SCIENTIFIC PROCESS OPERATOR B NATRIURETIC PEPTIDE STAT 07/09/2018 6:59 PM SCIENTIFIC PROCESS OPERATOR BLOOD CULTURE, AEROBIC & Routine 07/09/2018 ANAEROBIC 6:59 PM SCIENTIFIC PROCESS OPERATOR XR CHEST 1 VW PORTABLE STAT 07/09/2018 6:52 PM SCIENTIFIC PROCESS OPERATOR POC GLUCOSE Routine 07/09/2018 6:06 PM SCIENTIFIC PROCESS OPERATOR GRAM STAIN Routine 07/08/2018 5:10 PM SCIENTIFIC PROCESS OPERATOR RESPIRATORY CULTURE Routine 07/08/2018 5:10 PM SCIENTIFIC PROCESS O[address] CT ABDOMEN PELVIS W WO STAT 07/08/2018 CONTRAST 10:28 AM SCIENTIFIC PROCESS OPERATOR ESTIMATED GFR Routine 07/08/2018 9:31 AM SCIENTIFIC PROCESS OPERATOR BASIC METABOLIC PANEL Routine 07/08/2018 9:31 AM SCIENTIFIC PROCESS OPERATOR HC COMPLETE BLD COUNT Routine 07/08/2018 W/AUTO DIFF 9:31 AM SCIENTIFIC PROCESS OPERATOR VENOUS BLOOD GAS Routine 07/08/2018 6:14 AM SCIENTIFIC PROCESS OPERATOR ECG 12-LEAD STAT 07/08/2018 5:55 AM SCIENTIFIC PROCESS OPERATOR TROPONIN Timed 07/08/2018 3:44 AM SCIENTIFIC PROCESS OPERATOR LACTIC ACID LEVEL, SEPSIS Timed 07/08/2018 - NOW AND REPEAT 2X EVERY 3:44 AM SCIENTIFIC PROCESS OPERATOR [address] ANGIOGRAM PE CHEST STAT 07/08/2018 12:24 AM SCIENTIFIC PROCESS OPERATOR TROPONIN Timed 07/08/2018 12:19 AM SCIENTIFIC PROCESS OPERATOR LACTIC ACID LEVEL, SEPSIS Timed 07/08/2018 - NOW AND REPEAT 2X EVERY 12:19 AM SCIENTIFIC PROCESS OPERATOR 3 HOURS ECG 12-LEAD STAT 07/08/2018 12:02 AM SCIENTIFIC PROCESS OPERATOR CONSULT TO SEPSIS Routine 07/07/2018 Sepsis, due to RESPONSE TEAM 9:38 PM SCIENTIFIC PROCESS OPERATOR unspecified organism (HCC) BLOOD CULTURE, AEROBIC & Routine 07/07/2018 ANAEROBIC 8:51 PM SCIENTIFIC PROCESS OPERATOR ECG ED PRELIMINARY Routine 07/07/2018 INTERPRETATION 8:49 PM SCIENTIFIC PROCESS OPERATOR MA CRITICAL CARE, E/M Routine 07/07/2018 30-74 MINUTES 8:49 PM SCIENTIFIC PROCESS OPERATOR URINALYSIS SCREEN AND STAT 07/07/2018 MICROSCOPY, WITH REFLEX 8:43 PM SCIENTIFIC PROCESS OPERATOR TO CULTURE GRAM STAIN STAT 07/07/2018 8:43 PM SCIENTIFIC PROCESS OPERATOR URINE CULTURE STAT 07/07/2018 8:43 PM SCIENTIFIC PROCESS OPERATOR ESTIMATED GFR STAT 07/07/2018 8:38 PM SCIENTIFIC PROCESS OPERATOR B NATRIURETIC PEPTIDE STAT 07/07/2018 8:38 PM SCIENTIFIC PROCESS OPERATOR TROPONIN STAT 07/07/2018 8:38 PM SCIENTIFIC PROCESS OPERATOR LIPASE LEVEL STAT 07/07/2018 8:38 PM SCIENTIFIC PROCESS OPERATOR LACTIC ACID LEVEL, SEPSIS STAT 07/07/2018 - NOW AND REPEAT 2X EVERY 8:38 PM SCIENTIFIC PROCESS OPERATOR 3 HOURS HEPATIC FUNCTION PANEL STAT 07/07/2018 8:38 PM SCIENTIFIC PROCESS OPERATOR BASIC METABOLIC PANEL STAT 07/07/2018 8:38 PM SCIENTIFIC PROCESS OPERATOR HC COMPLETE BLD COUNT STAT 07/07/2018 W/AUTO DIFF 8:38 PM SCIENTIFIC PROCESS OPERATOR ECG 12-LEAD STAT 07/07/2018 8:37 PM SCIENTIFIC PROCESS OPERATOR BLOOD CULTURE, AEROBIC & Routine 07/07/2018 ANAEROBIC 8:35 PM SCIENTIFIC PROCESS OPERATOR XR CHEST 1 VW PORTABLE STAT 07/07/2018 8:32 PM SCIENTIFIC PROCESS OPERATOR FL PYELOGRAM RETROGRADE Routine 02/15/2018 2:31 PM CDT ANESTHESIA INTUBATION Routine 02/15/2018 1:02 PM CDT Procedure Note - Angel Alvarez CRNA - 02/15/2018 1:02 PM CDT Airway Performed by: ANGEL ALVAREZ Authorized by: MAINOR MIMS MA AN ELECTIVE Routine 02/15/2018 SUPRAGLOTTIC AIRWAY 12:57 [...] Preoperative testing W/AUTO DIFF 12:20 PM CDT after 01/22/2018 Results * NM Bone Scan Whole Body (10/07/2018 3:51 PM SCIENTIFIC PROCESS OPERATOR) Specimen Narrative Performed At Procedure:NM BONE SCAN WHOLE BODY [facility] REFERRING PHYSICIAN:RUBEN SETH HISTORY:severe pain right perineumpelvic [...] seen IMPRESSION: Negative whole-body bone scan exam. [id number] Procedure Note Interface, Radiology Results Incoming - 10/07/2018 4:52 PM SCIENTIFIC PROCESS OPERATOR Procedure:NM BONE SCAN WHOLE BODY REFERRING [...] seen IMPRESSION: Negative whole-body bone scan exam. [facility][id number] Performing Organization Address City/State/Zipcode Phone Number [facility] [address] [place] [address] * XR Hip 2-3 View Right (10/07/2018 1:32 PM SCIENTIFIC PROCESS OPERATOR) Specimen Narrative Performed At EXAMINATION:XR HIP 2-3 VIEWS RIGHT [facility] CLINICAL HISTORY:hip pain COMPARISON:None. TECHNIQUE: 3 [...] Negative for fracture or focal bony lesion. [id number] Procedure Note Hm Interface, Radiology Results Incoming - 10/07/2018 3:51 PM SCIENTIFIC PROCESS OPERATOR EXAMINATION: XR HIP 2-3 VIEWS RIGHT [...] Negative for fracture or focal bony lesion. [id number] Performing Organization Address City/State/Zipcode Phone Number [facility] [address] [place] [address] * Us duplex venous lower extremity (10/07/2018 10:37 AM SCIENTIFIC PROCESS OPERATOR) Specimen Narrative Performed At EXAMINATION:US DUPLEX VENOUS LOWER EXTREMITY BILATERAL [facility] CLINICAL HISTORY:Leg swelling or painDVT suspected [...] is no evidence of deep venous thrombosis. [facility]-[id number] Procedure Note [facility], Radiology Results Incoming - 10/07/2018 10:45 AM SCIENTIFIC PROCESS OPERATOR EXAMINATION: US DUPLEX VENOUS LOWER EXTREMITY [...] is no evidence of deep venous thrombosis. [facility]-[id number] Performing Organization Address City/State/Zipcode Phone Number [facility] [address] [place] [address] * MRI Pelvis W Wo Contrast (10/06/2018 5:50 PM SCIENTIFIC PROCESS OPERATOR) Specimen Narrative Performed At [facility] EXAMINATION:MRI [...] evidence of abscess formation or inflammatory changes. [id number] Procedure Note [facility], Radiology Results Incoming - 10/06/2018 6:35 PM SCIENTIFIC PROCESS OPERATOR EXAMINATION: MRI PELVIS W WO CONTRAST [...] evidence of abscess formation or inflammatory changes. [id number] Performing Organization Address City/State/Zipcode Phone Number [facility] [address] [place] [address] * CT Abdomen Pelvis W Contrast (10/06/2018 5:35 PM SCIENTIFIC PROCESS OPERATOR) Specimen Narrative Performed At EXAMINATION:CT ABDOMEN PELVIS W CONTRAST [facility] CLINICAL HISTORY:Abd painunspecified TECHNIQUE: Multiple axial images [...] with maximum diameter of 3.4 cm, unchanged. [facility]-[id number] Procedure Note Interface, Radiology Results Incoming - 10/06/2018 5:55 PM SCIENTIFIC PROCESS OPERATOR EXAMINATION: CT ABDOMEN PELVIS W CONTRAST [...] with maximum diameter of 3.4 cm, unchanged. [facility]-[id number] Performing Organization Address City/State/Zipcode Phone Number [facility] [address] [place] [address] * Estimated GFR (10/06/2018 5:53 AM SCIENTIFIC PROCESS OPERATOR) Only the most recent of 7 results within the time period is included. Estimated GFR 85 mL/min/1.73 m2 [facility] Comment: [facility] G1 >=90 Normal or high G2 60-89Mildly decreased [id number] Mildly to moderately decreased J6a26-19 Moderately to severely decreased G4 15-29Severely decreased G5 <15Kidney failure The eGFR was calculated using the Chronic Kidney Disease Epidemiology Collaboration (CKD-EPI) equation. Interpretation is based on recommendations of the National Kidney Foundation-Kidney Disease Outcomes Quality Initiative (NKF-KDOQI) published in 2014. Specimen Plasma specimen Performing Organization Address City/State/Zipcode Phone Number [facility] DEPARTMENT OF [address] [place] [address] [facility] [address] [place], [place] [phone] [place] [address] * CBC with platelet and differential (10/06/2018 5:53 AM SCIENTIFIC PROCESS OPERATOR) Only the most recent of 9 results within the time period is included. WBC 6.1 4.2 - 11.0 k/uL [facility] RBC 4.07 4.04 - 5.86 m/uL [facility] HGB 12.0 (L) 13.0 - 17.3 g/dL [facility] HCT 37.8 34.0 - 45.0 % [facility] MCV 92.9 80.0 - 98.0 fL [facility] MCH 29.5 27.0 - 34.0 pg [facility] MCHC 31.7 31.5 - 36.5 g/dL [facility] RDW - SD 46.1 37.0 - 51.0 fL [facility] MPV 9.6 7.4 - 10.4 fL [facility] Platelet count 238 150 - 400 k/uL [facility] Nucleated RBC 0.00 /100 WBC [facility] Neutrophils 52.7 36.0 - 66.0 % [facility] Lymphocytes 32.8 24.0 - 44.0 % [facility] Monocytes 10.3 (H) 0.0 - 6.0 % [facility] Eosinophils 2.6 0.0 - 6.0 % [facility] Basophils 0.5 0.0 - 1.2 % [facility] Immature 1.1 (H) 0.0 - 1.0 % [facility] Specimen Blood Performing Organization Address City/[facility]/Zipcode Phone Number [facility] [address] [place] [address] PATHOLOGY AND GENOMIC MEDICINE [address] * Basic metabolic panel (10/06/2018 5:53 AM SCIENTIFIC PROCESS OPERATOR) Only the most recent of 5 results within the time period is included. [facility] Sodium 141 135 - 150 mEq/L [facility] Potassium 4.1 3.5 - 5.0 mEq/L [facility] Chloride 104 98 - 112 mEq/L [facility] CO2 27 24 - 31 mmol/L [facility] Anion gap 10@ANIO 7 - 15 mEq/L [facility] BUN 14 7 - 18 mg/dL [facility] Creatinine 0.90 0.70 - 1.20 mg/dL [facility] Glucose 98 65 - 100 mg/dL [facility] Calcium 8.6 (L) 8.8 - 10.2 mg/dL [facility] Specimen Plasma specimen Performing Organization Address City/[facility] Phone Number [facility] [address] [place] [phone] PATHOLOGY AND GENOMIC MEDICINE [address] * Surgical pathology request (10/04/2018 1:48 PM SCIENTIFIC PROCESS OPERATOR) [facility] [place]OLOGY AND GENOMIC MEDICINE Surgical See link below for PDF Lab [facility] pathology Report OF PATHOLOGY report AND GENOMIC MEDICINE Result status This is Final Report for [facility] [id number] OF PATHOLOGY AND GENOMIC MEDICINE Specimen Performing Organization Address City/[facility]/[place] [address] PATHOLOGY AND GENOMIC MEDICINE * Prothrombin time with INR (10/04/2018 6:13 AM SCIENTIFIC PROCESS OPERATOR) Only the most recent of 3 results within the time period is included. [facility] Prothrombin 13.9 11.5 - 14.5 sec [facility] time [facility] INR 1.10 [facility] Comment: AUREA RICE For patients on anticoagulant DISHA therapy, reference ranges HOSPITAL below: Indication: INR Value Treatment of Venous Thrombosis, 2.0-3.0 pulmonary emboli, or prophylaxis of a venous thrombosis, or systemic emboli. High dose, high risk patients 3.0-4.5 with mechanical valves. NOTE:INR values over 3.0 are sometimes associated with gastrointestinal hemorrhage, especially values over 4.0. Specimen Blood Performing Organization Address City/State/Zipcode Phone Number [facility] [place] [place] [address] [place] [address] [address] [facility] [address] * Comprehensive metabolic panel (10/04/2018 6:13 AM SCIENTIFIC PROCESS OPERATOR) Only the most recent of 3 results within the time period is included. Sodium 141 135 - 150 mEq/L [facility] Potassium 4.2 3.5 - 5.0 mEq/L [facility] Chloride 107 98 - 112 mEq/L [facility] CO2 24 24 - 31 mmol/L [facility] Anion gap 10@ANIO 7 - 15 mEq/L [facility] BUN 12 7 - 18 mg/dL [facility] Creatinine 0.90 0.70 - 1.20 mg/dL [facility] Glucose 117 (H) 65 - 100 mg/dL [facility] Calcium 8.7 (L) 8.8 - 10.2 mg/dL [facility] Protein 6.4 6.3 - 8.3 g/dL [facility] Albumin 2.9 (L) 3.5 - 5.0 g/dL [facility] A/G ratio 0.8 0.7 - 3.8 [facility] Alkaline 58 0 - 129 U/L [facility] phosphatase [facility] AST 18 10 - 50 U/L [facility] ALT 19 5 - 50 U/L [facility] Total bilirubin 0.4 0.2 - 1.2 mg/dL [facility] Specimen Plasma specimen Performing Organization Address City/State/Zipcode Phone Number [facility] [place] [address] [place] [address] [address] [facility] [address] [place], [place] [phone] [place] [address] * Gram stain (10/03/2018 6:01 PM SCIENTIFIC PROCESS OPERATOR) Only the most recent of 3 results within the time period is included. Gram stain Few WBC's [facility] result No organisms seen [facility] Comment: HOSPITAL Specimen Information Specimen Source: Urine Specimen Site: Clean catch Specimen Urine Performing Organization Address City/[facility] Cent[facility]ode Phone Number [facility] [place] [address] PATHOLOGY AND GENOMIC MEDICINE [address] * Urine culture (10/03/2018 6:01 PM SCIENTIFIC PROCESS OPERATOR) Only the most recent of 2 results within the time period is included. [facility] Urine culture No growth after 24 hours [facility] isolate Comment: [facility] Specimen Information HOSPITAL Specimen Source: Urine Specimen Site: Clean catch Specimen Urine Performing Organization Address City/[facility]ode Phone Number [facility] [place] [address] PATHOLOGY AND GENOMIC MEDICINE [address] * Urinalysis screen and microscopy, with reflex to culture (10/03/2018 5:27 PM SCIENTIFIC PROCESS OPERATOR) Only the most recent of 2 results within the time period is included. Specimen site Clean catch [facility] Color, UA Yellow [facility] Appearance, UA Clear [facility] Specific 1.008 1.001 - 1.035 [place] gravity, [facility] pH, UA 7.0 5.0 - 8.5 [facility] Protein, UA Negative Negative [facility] Glucose, UA Negative Negative [facility] Ketones, UA Negative Negative [facility] Bilirubin, UA Negative Negative [facility] Blood, UA Negative Negative [facility] Nitrite, UA Negative Negative [facility] Urobilinogen, Negative <2.0 [facility] Leukocyte Large (A) Negative [facility] esterase, UA [facility] Epithelial Few /HPF [place] cells, UA [facility] WBC, UA 76 (H) 0 - 1 /HPF [facility] RBC, UA 9 (H) 0 - 5 /HPF [facility] Bacteria, UA None seen None seen [facility] Yeast, UA Few (A) [facility] Yeast with None seen [facility] pseudohyphae, [facility] Specimen Urine Performing Organization Address City/State/Zipcode Phone Number [facility] [place] [address] [place] [address] PATHOLOGY AND GENOMIC MEDICINE [place] [id number] [place], [place] [phone] [place] [address] * XR Chest 1 Vw Portable (10/03/2018 3:42 PM SCIENTIFIC PROCESS OPERATOR) Only the most recent of 3 results within the time period is included. Specimen Narrative Performed At EXAMINATION:XR CHEST 1 VW PORTABLE [facility] CLINICAL HISTORY:preop COMPARISON:July 09, 2018 IMPRESSION: Lines: None Lungs and pleura: Bibasilar subsegmental atelectasis versus scarring. No consolidations. No pleural effusion or pneumothorax. Heart and mediastinum: Stable appearance of cardiomediastinal silhouette. Bones: No suspicious osseous lesions. [id number] Procedure Note Hm Interface, Radiology Results Incoming - 10/03/2018 3:49 PM SCIENTIFIC PROCESS OPERATOR EXAMINATION: XR CHEST 1 VW PORTABLE CLINICAL HISTORY: preop COMPARISON: July 09, 2018 IMPRESSION: Lines: None Lungs and pleura: Bibasilar subsegmental atelectasis versus scarring. No consolidations. No pleural effusion or pneumothorax. Heart and mediastinum: Stable appearance of cardiomediastinal silhouette. Bones: No suspicious osseous lesions. [facility][id number] Performing Organization Address City/State/Zipcode Phone Number [facility] [address] [place] [address] * Partial thromboplastin time, activated (10/03/2018 3:30 PM SCIENTIFIC PROCESS OPERATOR) Only the most recent of 2 results within the time period is included. Pathologist [facility] PTT 27.5 23.0 - 36.0 sec [place] Comment: [facility] PTT therapeutic range for [facility] unfractionated heparin is HOSPITAL 61.0-112.0 seconds which corresponds to Anti-Xa 0.3-0.7 U/ml. Note:Change in Panic Value The PTT Panic Value is changing from 110 sec. to 100 sec. due to new instrumentation and reagents. Correlation studies have been performed to validate this result. Specimen Blood Performing Organization Address City/[facility]/Zipcode Phone Number [facility] [place] [address] [place], [place] [id number] PATHOLOGY AND GENOMIC MEDICINE [address] * Type and screen (10/03/2018 3:30 PM SCIENTIFIC PROCESS OPERATOR) Pathologist [facility] ABO grouping A [facility] Rh type POS [facility] Antibody screen NEG [facility] (gel) [facility] Specimen Blood Performing Organization Address City/[facility] [place] [facility] [employer] Phone Number [facility] [place] [phone] PATHOLOGY AND GENOMIC MEDICINE [place] [id number] [address] * ECG ED Preliminary Interpretation - Not an Order (10/03/2018 3:08 PM SCIENTIFIC PROCESS OPERATOR) Only the most recent of 2 results within the time period is included. Narrative Performed At Violet Newsome DO 10/04/20188:21 PM ECG ED Preliminary Interpretation - Not an Order Performed by: Violet Newsome DO Authorized by: Violet Newsome DO ECG reviewed by ED Physician in the absence of a stretcher operator: yes Interpretation: Interpretation: abnormal Rate: ECG rate:59 ECG rate assessment: bradycardic Rhythm: Rhythm: sinus bradycardia Ectopy: Ectopy: none QRS: QRS axis:Left QRS intervals:Normal Conduction: Conduction: normal ST segments: ST segments:Normal T waves: T waves: normal * MRI Lumbar Spine Wo Contrast (10/03/2018 3:08 PM SCIENTIFIC PROCESS OPERATOR) Specimen Narrative Performed At This [facility] has an attachment that is not available. HM RADIANT EXAMINATION: MRI LUMBAR SPINE WO [...] the lower lumbar spine without significant stenosis. [facility]-[id number] Procedure Note Hm Interface, Radiology Results - 10/03/2018 3:21 PM SCIENTIFIC PROCESS OPERATOR EXAMINATION: MRI LUMBAR SPINE WO CONTRAST [...] the lower lumbar spine without significant stenosis. [facility]-[id number] Performing Organization Address City/State/Zipcode Phone Number [facility] [address] [place] [address] * ECG 12 lead (10/03/2018 1:54 PM SCIENTIFIC PROCESS OPERATOR) Only the most recent of 5 results within the time period is included. Ventricular 59 [facility] MUSE rate Atrial rate 59 [facility] MUSE MA interval 164 [facility] M[facility] QRSD interval 142 [facility] MUSE QT interval 452 [facility] MUSE QTC interval 447 [facility] MUSE P axis 1 61 [facility] MUSE QRS axis 1 -36 [facility] MUSE T wave axis 51 [facility] MUSE EKG impression Sinus bradycardia-Left axis [facility] MUSE deviation-Right bundle branch block-Abnormal ECG-In automated comparison with ECG of 09-JUL-2018 19:09,-premature atrial complexes are no longer present-Vent. rate has increased BY19 BPM-Inverted T waves have replaced nonspecific T wave abnormality in Anterior leads-QT has lengthened- Specimen Narrative Performed At Performing Organization Address City/State/Zipcode Phone Number [facility] [address] [place] [address] * POC glucose (07/11/2018 11:40 AM SCIENTIFIC PROCESS OPERATOR) Only the most recent of 2 results within the time period is included. POC glucose 97 65 - 100 mg/dL [place] Comment: AUREA RICE Meter ID: [id number] [facility] Ad Copy Writer: [facility] Specimen Performing Organization Address City/State/Zipcode Phone Number [facility] DEPARTMENT OF [address] [place] [address] PATHOLOGY AND GENOMIC MEDICINE [place] AUREA RICE [facility] [address] * Echocardiogram complete w contrast and 3D if needed (07/09/2018 8:57 PM SCIENTIFIC PROCESS OPERATOR) Ao Root 3.43 cm [facility] [...] i VTI 1.26 cm2/m2 [facility] BSA [place] MR Vmax 4.93 m/s [facility] BMI [...] At Performing Organization Address City/State/Zipcode Phone Number [facility] [address] [place] [address] * Arterial blood gas (07/09/2018 7:29 PM SCIENTIFIC PROCESS OPERATOR) Ad Copy Writer germain owens [facility] Collection site rra [facility] O2 therapy nc [facility] pH, arterial 7.462 (H) 7.350 - 7.450 units [facility] pCO2, arterial 35.9 35.0 - 45.0 mmHg [facility] pO2, arterial 80.4 80.0 - 90.0 mmHg [facility] O2 saturation, 96.4 95.0 - 100.0 % [place] arterial [facility] Base excess, 1.8 mEq/L [place] arterial [facility] Bicarbonate 25.6 21.0 - 28.0 mEq/L [facility] O2 content 17.7 VOL% [facility] FiO2, inspired 28.0 % [place] O2% [facility] Carboxyhemoglob 0.3 0.0 - 1.4 % [place] in Comment: [facility] Reference Ranges: [facility] Carboxyhemoglobin [facility] Non smoker: 0.0 - 2.0% Smoker: 2.1 - 5.0% Heavy smoker: 5.1 - 9% Methemoglobin 1.5 (H) 0.0 - 1.0 % [facility] Hemoglobin, 13.3 (L) 14.0 - 18.0 g/dL [place] blood gas [facility] pO2, A-a 76.7 mmHg [facility] Specimen Blood Performing Organization Address City/State/Zipcode Phone Number [facility] [place] [address] [place] [address] [address] [facility] [address] [place], [place] [id number] [place] [address] * Blood culture, aerobic & anaerobic (07/09/2018 7:03 PM SCIENTIFIC PROCESS OPERATOR) Only the most recent of 4 results within the time period is included. Pathologist [facility] Blood culture No growth after 5 days of [place] isolate incubation. [facility] Comment: HOSPITAL Specimen Information Specimen Source: Blood Specimen Site: Peripheral Hand Left Specimen Blood Performing Organization Address City/[facility]/Zipcode Phone Number [facility] DEPARTMENT OF [address] [place] [address] PATHOLOGY AND GENOMIC MEDICINE [address] * Procalcitonin (07/09/2018 6:59 PM SCIENTIFIC PROCESS OPERATOR) Procalcitonin 19.90 (H) <=0.07 ng/mL [facility] Comment: INTERPRETIVE INFORMATION: Procalcitonin Effective February 07, 2018, this test is performed by the [employer] Procalcitonin assay. A correction has been applied to optimize cutoff's established for the [employer] PCT sensitive Kryptor assay. Procalcitonin > 2.00 [...] condition(s) of the individual patient. Performed at: [facility] [address] [facility] [address] Specimen Serum Performing Organization Address City/[facility] Phone Number [facility] [address] [place] [address] HM [facility] [address] [place] [address] * Troponin (07/09/2018 6:59 PM SCIENTIFIC PROCESS OPERATOR) Only the most recent of 4 results within the time period is included. [facility] Troponin <0.30 0.00 - 0.30 ng/mL [place] Comment: [facility] 0.11 - 1.49 [facility] ng[facility] indicate increased risk of acute coronary syndrome. >=1.5 ng/ml Consistent with acute myocardial infarction. The diagnostic value of a single normal or non-diagnostic result is questionable.Serial samples at 2-6 hour intervals are required to rule out acute myocardial injury. Specimen Plasma specimen Performing Organization Address City/[facility] Phone Number [facility] [place] [address] PATHOLOGY AND [facility] MEDICINE [address] * C-reactive protein (07/09/2018 6:59 PM SCIENTIFIC PROCESS OPERATOR) [facility] CRP 9.65 (H) 0.00 - 0.50 mg/dL [facility] Specimen Plasma specimen Performing Organization Address City/[facility] Phone Number [facility] [place] [address] PATHOLOGY AND [facility] [address] * Thyroid stimulating hormone (07/09/2018 6:59 PM SCIENTIFIC PROCESS OPERATOR) [facility] TSH 0.30 0.27 - 4.20 uIU/mL [facility] Specimen Plasma specimen Performing Organization Address [facility] Phone Number [facility] [place] [address] PATHOLOGY AND [facility] [address] * T4, free (07/09/2018 6:59 PM SCIENTIFIC PROCESS OPERATOR) T4, free 0.90 0.90 - 1.70 ng/dL [facility] Specimen Plasma specimen Performing Organization Address City/[facility] Phone Number [facility] [place] [address] [facility] [place] [address] PATHOLOGY AND GENOMIC MEDICINE [address] * Phosphorus level (07/09/2018 6:59 PM SCIENTIFIC PROCESS OPERATOR) Phosphorus 2.8 2.4 - 4.5 mg/dL [facility] Specimen Plasma specimen Performing Organization Address City/[facility] Phone Number [facility] [place] [address] [place] [address] PATHOLOGY AND GENOMIC MEDICINE [address] * B natriuretic peptide (07/09/2018 6:59 PM SCIENTIFIC PROCESS OPERATOR) Only the most recent of 2 results within the time period is included. BNP 297 (H) 0 - 100 pg/mL [facility] Specimen Blood Performing Organization Address [facility] Phone Number [facility] [place] [address] [place] [address] PATHOLOGY AND GENOMIC MEDICINE [address] * Magnesium level (07/09/2018 6:59 PM SCIENTIFIC PROCESS OPERATOR) Magnesium 2.00 1.60 - 2.40 mg/dL [facility] Specimen Plasma specimen Performing Organization Address City/[facility] Phone Number [facility] [place] [address] [place] [address]. [place] [address] PATHOLOGY AND GENOMIC MEDICINE [address] * Lipase level (07/09/2018 6:59 PM SCIENTIFIC PROCESS OPERATOR) Only the most recent of 2 results within the time period is included. Lipase 16 13 - 60 U/L [facility] Specimen Plasma specimen Performing Organization Address City/[facility] Phone Number [facility] [place] [address] [place] [address] PATHOLOGY AND GENOMIC MEDICINE [place] [id number] [facility] [address]. [address] * Lactic acid level (07/09/2018 6:59 PM SCIENTIFIC PROCESS OPERATOR) Lactic acid 1.7 0.5 - 2.2 mmol/L [facility] Specimen Blood Performing Organization Address [facility] Phone Number [facility] [place] [address] [place] [address] PATHOLOGY AND GENOMIC MEDICINE [address] * Creatine kinase, total (CPK) (07/09/2018 6:59 PM SCIENTIFIC PROCESS OPERATOR) Pathologist [facility] Creatine kinase 69 39 - 308 U/L [facility] Specimen Plasma specimen Performing Organization Address [facility] Phone Number [facility] [place] [address] [place] [address] PATHOLOGY AND GENOMIC MEDICINE [address] * Ionized calcium (07/09/2018 6:59 PM SCIENTIFIC PROCESS OPERATOR) Pathologist [facility] pH 7.40 [facility] Ionized calcium 1.16 1.11 - 1.32 mmol/L [facility] Specimen Plasma specimen Performing Organization Address [facility] Phone Number [facility] [place] [address] [place] [address] PATHOLOGY AND GENOMIC MEDICINE [address] * Respiratory culture (07/08/2018 5:10 PM SCIENTIFIC PROCESS OPERATOR) Pathologist [facility] Respiratory Normal oral richard isolated. [place] culture isolate Comment: [facility] Specimen Information HOSPITAL Specimen Source: Bronchial Washing Specimen Site: All Lobes Specimen Bronchial washing - Washing Performing Organization Address City/State/Zipcode Phone Number [facility] DEPARTMENT OF [address] [place] [address] PATHOLOGY AND GENOMIC MEDICINE [address] * CT Abdomen Pelvis W Wo Contrast (07/08/2018 10:28 AM SCIENTIFIC PROCESS OPERATOR) Specimen Narrative Performed At EXAMINATION:CT ABDOMEN PELVIS W WO CONTRAST [facility]ANT CLINICAL HISTORY:Abnormal findings on diagnostic imaging of other parts of digestive tract, liver [id number] cm possible liver lesion TECHNIQUE: Multiple axial [...] factors High risk patients: *Greater than 20 ggyz-[id number]-[id number] history of smoking, or equivalent second hand [...] short axes rounded to the nearest mm. [id number] Procedure Note Hm Interface, Radiology Results [facility] - 07/08/2018 10:54 AM SCIENTIFIC PROCESS OPERATOR EXAMINATION: CT ABDOMEN PELVIS W WO [...] High risk patients: * Greater than 20 zhea-svqa-[id number] history of smoking, or equivalent second hand [...] short axes rounded to the nearest mm. [id number] Performing Organization Address City/State/Zipcode Phone Number [facility] [address] [place] [address] * Venous blood gas (07/08/2018 6:14 AM SCIENTIFIC PROCESS OPERATOR) Ad Copy Writer [id number] [facility] Collection site R HAND [facility] pH, venous 7.423 (H) 7.320 - 7.420 units [facility] pCO2, venous 44.1 (L) 45.0 - 51.0 mmHg [facility] pO2, venous 59.3 (H) 25.0 - 40.0 mmHg [facility] O2 saturation, 91.3 (H) 40.0 - 70.0 % [place] venous [facility] Base excess, 4.3 (H) -2.0 - 2.0 mEq/L [place] venous [facility] Bicarbonate 28.8 (H) 21.0 - 28.0 mEq/L [facility] O2 content 17.1 VOL% [facility] FiO2, inspired 21.0 % [place] O2% [facility] Carboxyhemoglob 0.9 0.0 - 1.4 % [place] in Comment: [facility] Reference Ranges: [facility] Carboxyhemoglobin [facility] Non smoker: 0.0 - 2.0% Smoker: 2.1 - 5.0% Heavy smoker: 5.1 - 9% Methemoglobin 1.3 (H) 0.0 - 1.0 % [facility] Hemoglobin, 13.6 (L) 14.0 - 18.0 g/dL [place] blood gas [facility] Specimen Blood Performing Organization Address City/[facility]/Zipcode Phone Number [facility] [place] [address] [place] [address] PATHOLOGY AND GENOMIC MEDICINE [address] * Lactic acid level, SEPSIS - Now and repeat 2x every 3 hours (07/08/2018 3:44 AM SCIENTIFIC PROCESS OPERATOR) Only the most recent of 3 results within the time period is included. Lactic acid 1.2 0.5 - 2.2 mmol/L [facility] Specimen Blood Performing Organization Address [facility] Cent[facility] [address] PATHOLOGY AND GENOMIC MEDICINE [address] * CT Angiogram Pe Chest (07/08/2018 12:24 AM SCIENTIFIC PROCESS OPERATOR) Specimen Narrative Performed At EXAMINATION: RADIANT CT ANGIOGRAM PE CHEST CLINICAL HISTORY: [...] are seen of left renal collecting system. [facility]-[id number] Procedure Note [facility], Radiology Results Incoming - 07/08/2018 12:45 AM SCIENTIFIC PROCESS OPERATOR EXAMINATION: CT ANGIOGRAM PE CHEST CLINICAL [...] are seen of left renal collecting system. [facility]-[id number] Performing Organization Address City/State/Zipcode Phone Number [facility] [address] [place] [address] * Sepsis Clinical Assessment (07/07/2018 9:38 PM SCIENTIFIC PROCESS OPERATOR) Narrative Performed At Robert Rich NP 07/08/20186:24 AM Reperfusion assessment done Sepsis Clinical Assessment Performed by: Robert Rich NP Authorized by: Robert Rich NP Sepsis Clinical Assessment General Assessment Information Current sepsis score:2 On comfort care?: No If score does not worsen, snooze alerts until:07/08/2018 09:00 SCIENTIFIC PROCESS OPERATOR SIRS Criteria Temperature > 38.3 C [...] administrations. * CRITICAL CARE (07/07/2018 8:49 PM SCIENTIFIC PROCESS OPERATOR) Narrative Performed At Herminio Dick MD [...] * Hepatic function panel (07/07/2018 8:38 PM SCIENTIFIC PROCESS OPERATOR) Pathologist [facility] Albumin 3.2 (L) 3.5 - 5.0 g/dL [facility] Total bilirubin 0.9 0.2 - 1.2 mg/dL [facility] Bilirubin 0.2 0.0 - 0.4 mg/dL [place] direct [facility] Alkaline 57 0 - 129 U/L [place] phosphatase [facility] Protein 6.3 6.3 - 8.3 g/dL [facility] ALT 17 5 - 50 U/L [facility] AST 26 10 - 50 U/L [facility] Specimen Plasma specimen Performing Organization Address City/[facility] Phone Number [facility] DEPARTMENT OF [address] [place] [address] [address] [facility] [address] [place], [place] [address] [place] [address] * FL Pyelogram Retrograde (02/15/2018 2:31 PM CDT) Specimen Narrative Performed At [facility]. INDICATION: Retrograde pyelogram COMPARISON: None. [...] 47 seconds. 4 image(s). Performing Organization Address City/[facility]/Zipcode Phone Number [facility] [address] [place] [address] * ECG Pre/Post Op (02/10/2018 12:41 PM CDT) Ventricular 49 [facility] MUSE rate Atrial rate 49 [facility] MUSE MA interval 136 [facility] M[facility] QRSD interval 130 [...] is now present- Specimen Performing Organization Address City/State/Zipcode Phone Number [facility] MUSE [address] [place] [address] * Estimated GFR (02/10/2018 12:20 PM CDT) GFR Non Af Amer 73 mL/min/1.73 m2 [facility] [place] PATHOLOGY AND GENOMIC MEDICINE GFR Af Amer 89 mL/min/1.73 m2 [facility] Comment: OF PATHOLOGY Chronic kidney disease: [...] Performing Organization Address City/State/Zipcode Phone Number [facility] [place] [address] [place] [address] PATHOLOGY AND GENOMIC MEDICINE after 01/22/2018 Insurance Type Payer Benefit Subscriber ID Effective Phone Address Plan / Dates Group Medicare MEDICARE MEDICARE xxxxxxxxxxx 2010-P [place], PART A AND resent [place] Commercial [employer] [place] [employer] xxxxxxxx 2017-P [place] maritzaent Advance Directives Patient has advance care planning documents on file. For more information, plenancy e contact: Brown Michelle [address] [place] [address]
[2019-01-23] MEDS ORDERED: FAMOTIDINE 20 MG/2 ML VIAL IV STA (10:59)
[2019-01-23] MEDS ORDERED: SODIUM CHLORIDE 0.9% 1000ML 1,000 ML IV STA (10:59)
[2019-01-23] MEDS ORDERED: ONDANSETRON HCL INJ 2MG/ML 2ML 2 MG/ML VIAL IV STA (10:59)
[2019-01-23] MEDS ORDERED: MORPHINE SULFATE INJ 4 MG/ML INJ 1ML IV STA (10:59)
[2019-01-23 11:23] LABS: BASOPHILS # (AUTO) 0.1 (0.0-0.1); BASOPHILS % 1.1 % (0.0-1.0); EOSINOPHILS # (AUTO) 0.2 (0.0-0.4); EOSINOPHILS % 3.2 % (0.0-6.0); HEMATOCRIT 35.5 % (38.2-49.6); HEMOGLOBIN 11.8 g/dL (14.0-18.0); LYMPHOCYTES # (AUTO) 1.4 (1.0-3.2); LYMPHOCYTES % 29.3 % (18.0-39.1); MEAN CORPUSCULAR HEMOGLOBIN 29.1 pg (28-32); MEAN CORPUSCULAR HGB CONC 33.2 g/dL (31-35); MEAN CORPUSCULAR VOLUME 87.4 fL (81-99); MONOCYTES # (AUTO) 0.5 (0.2-0.8); MONOCYTES % 9.6 % (4.4-11.3); NEUTROPHILS # (AUTO) 2.5 (2.1-6.9); NEUTROPHILS % 52.3 % (38.7-80.0); PLATELET COUNT 200 x10e3/uL (140-360); RED BLOOD COUNT 4.06 x10e6/uL (4.3-5.7); RED CELL DISTRIBUTION WIDTH 15.5 % (11.7-14.4)
[2019-01-23] MEDS ORDERED: MORPHINE SULFATE INJ 4 MG/ML INJ 1ML IV PRN (11:30)
[2019-01-23 11:43] LABS: ALANINE AMINOTRANSFERASE 19 IU/L (0-55); ALBUMIN 3.6 g/dL (3.5-5.0); ALBUMIN/GLOBULIN RATIO 1.2 (0.8-2.0); ALKALINE PHOSPHATASE 111 IU/L (40-150); AMYLASE 49 U/L (25-125); ANION GAP 11.9 mmol/L (8-16); BLOOD UREA NITROGEN 12 mg/dL (7-26); BUN/CREATININE RATIO 12 (6-25); CALCIUM 9.1 mg/dL (8.4-10.2); CARBON DIOXIDE 24 mmol/L (22-29); CHLORIDE 106 mmol/L (98-107); CREATININE, SERUM 1.03 mg/dL (0.72-1.25); EST GLOMERULAR FILTRATION RATE > 60 ML/MIN (60-); GLUCOSE 111 mg/dL (74-118); LIPASE 16 U/L (8-78); POTASSIUM 3.9 mmol/L (3.5-5.1); SODIUM 138 mmol/L (136-145)
[2019-01-23] MEDS ORDERED: FENTANYL CITRATE/PF 100MCG/2 ML INJ IV ONE (12:00)
[2019-01-23 12:25] LABS: BILIRUBIN,URINE NEGATIVE (NEGATIVE); CLARITY,URINE SL CLOUDY (CLEAR); COLOR,URINE YELLOW (YELLOW); KETONES,URINE NEGATIVE (NEGATIVE); LEUKOCYTE ESTERASE ,URINE TRACE (NEGATIVE); NITRITE,URINE NEGATIVE (NEGATIVE); PROTEIN,URINE DIPSTICK NEGATIVE (NEGATIVE); URINE UROBILINOGEN 0.2 mg/dL (0.2 - 1)
[2019-01-23] MEDS ORDERED: IOPAMIDOL 370 MG/ML 200 ML INFUS..BTL INJ ONE (12:31)
[2019-01-23] MEDS ORDERED: SODIUM CHLORIDE 0.9% 50ML 50 ML ONE (12:31)
[2019-01-23 12:35] LABS: BACTERIA,URINE RARE /HPF; EPITHELIAL CELLS,URINE FEW /LPF
--- NOTE | 2019-01-23 13:20 | Diagnostic Imaging Report ---
EXAM: CT ABDOMEN AND PELVIS with IV CONTRAST DATE: 01/23/2019 Time stamp on Exam: 12:35 PM INDICATION: Abdominal pain COMPARISON: None TECHNIQUE: The abdomen and pelvis were scanned using a multidetector helical scanner. Coronal and sagittal reformations were obtained. Routine protocol performed. Technique modification was utilized to maintain the lowest dose possible to the patient. IV Contrast: 100 cc of Isovue-300 Oral Contrast: Water Radiation Dose: Total DLP 710.06 mGy*cm Estimated effective dose: DLP x 0.015 x size factor FINDINGS: LOWER THORAX: No consolidations LIVER: No masses with diffuse fatty infiltration of the liver. BILIARY: The gallbladder is unremarkable. No ductal dilatation. SPLEEN: No masses PANCREAS: No masses ADRENALS: No nodules KIDNEYS: Symmetric perfusion. No enhancing masses. No hydronephrosis. Small nonobstructing stones in both kidneys. There is a left double-J ureteral stent present. There is a 6 cm exophytic interpolar right renal cyst. GI TRACT: No distention, wall thickening or evidence of obstruction. Appendix is slightly prominent measuring 7.4 mm without evidence of periappendiceal stranding. There is a small appendicolith present. Sigmoid colon diverticulosis. VESSELS: Small infrarenal abdominal aortic aneurysmal bulge measuring 3.8 cm. Vascular calcification in the aorta and iliac vessels is also present. 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 BLADDER: Unremarkable SOFT TISSUES: Unremarkable BONES: No suspicious bone lesions. Mild degenerative changes of the spine. IMPRESSION: 1. Bilateral nonobstructing renal stones. 2. Diffuse hepatic steatosis. 3. Infrarenal abdominal aortic aneurysm measuring 3.8 cm. 4. Diverticulosis without findings of diverticulitis. Signed by: Dr. Gopal Calhoun DO on 01/23/2019 1:16 PM
[2019-01-23] MEDS ORDERED: DONNATAL/LIDOCAINE/MAALOX 30 ML SUSP PO ONE (14:00)
[2019-01-23] MEDS ORDERED: OMEPRAZOLE40 MG PO (14:04)
[2019-01-23] MEDS ORDERED: ULTRAM50 MG PO (14:04)
[2019-01-23] MEDS ORDERED: TYLENOL WITH C1 EACH PO (14:04)
[2019-01-31] MEDS ORDERED: FLUCONAZOLE100 MG PO (16:56)
== END 2019-01-23 14:13 | disposition home or self-care (01) ==
LOC: ER 10:47
DX: R10.33 Periumbilical pain (principal); K29.00 Acute gastritis without bleeding; I71.4 Abdominal aortic aneurysm, without rupture; I10 Essential (primary) hypertension; E78.5 Hyperlipidemia, unspecified; Z86.73 Personal history of transient ischemic attack (TIA), and cerebral infarction without residual deficits
CPT/HCPCS: 36415; 74177; 80053; 81001; 82150; 83690; 85025; 87086; 99284; J2270; J2405; J7030; Q9967

== ENCOUNTER → 2019-01-24 | Day surgery (SDC) | payer MEDICARE, OTHER ==
[~2019-01-24] MED LIST changes: +DONNATAL/LIDOCAINE/MAALOX 30 ML SUSP PO STA; +FENTANYL CITRATE/PF 100MCG/2 ML INJ ONE; +FLUCONAZOLE 200 MG/100 ML 100 ML IV ONE; +FLUCONAZOLE100 MG PO; +LIDOCAINE HCL 2% LOCAL INJ 5 ML SDV VIAL INJ ONE; +OMEPRAZOLE40 MG PO; +PANTOPRAZOLE 40 MG 10ML VIAL ONE; +PROPOFOL IV EMULSION 10 MG/ML 50 ML VIAL ONE; +ULTRAM50 MG PO
--- OUTSIDE RECORDS SUMMARY | 2019-01-24 08:56 | XMS REPORT | Clinical Summary ---
Author Author [facility] [place] [facility] Address Unknown Phone Unavailable Care Team Providers Care Parts Picker Name Role Phone Carlos Peña DO PCP [...] tract infection with hematuria, site unspecified 07/07/2018 [facility] General Internal Medicine - Encounter 07/12/2018 Rbuen Seth MD Cysto Retrograde-Bilateral 02/15/2018 Surgery General Surgery Mainor Mims MD 02/15/2018 Anesthesia General Surgery Event Ruben Seth MD 02/15/2018 Hospital General Surgery Encounter Ruben Seth MD Preoperative testing (Primary Dx) 02/10/2018 Pre-Admit Pre-Admission Testing Testing Appointment after 01/23/2018 Immunizations Name Dates Previously Given Next Due [...] Taken Vital Sign Reading 10/07/2018 4:04 PM TILE INSTALLER Blood Pressure 130/74 10/07/2018 4:04 PM TILE INSTALLER Pulse 62 10/07/2018 4:04 PM TILE INSTALLER Temperature 36.1 C (97 F) 10/07/2018 4:04 PM TILE INSTALLER Respiratory Rate 19 10/07/2018 4:04 PM TILE INSTALLER Oxygen Saturation 95% - Inhaled Oxygen - Concentration 10/03/2018 12:17 PM TILE INSTALLER Weight 76.2 kg (168 lb) 10/03/2018 12:17 PM TILE INSTALLER Height 170.2 cm (5' 7") 10/03/2018 12:17 PM TILE INSTALLER Body Mass Index 26.31 Plan of Treatment Health Maintenance Due Date Last Done Comments COLONOSCOPY SCREENING 12/08/1995 SHINGLES VACCINES (#1) 12/08/1995 INFLUENZA VACCINE 03/09/2019 07/12/2018 65+ PNEUMOCOCCAL VACCINE 07/12/2019 07/12/2018 (2 of 2 - PPSV23) Procedures Comments Procedure Name Priority Date/Time Associated Diagnosis NM BONE SCAN WHOLE BODY Routine 10/07/2018 3:51 PM TILE INSTALLER XR HIP 2-3 VIEWS RIGHT Routine 10/07/2018 1:32 PM TILE INSTALLER US DUPLEX VENOUS LOWER Routine 10/07/2018 EXTREMITY BILATERAL 10:37 AM TILE INSTALLER MRI PELVIS W WO CONTRAST Routine 10/06/2018 5:[address] ABDOMEN PELVIS W Routine 10/06/2018 CONTRAST 5:35 PM TILE INSTALLER ESTIMATED GFR Routine 10/06/2018 5:53 AM TILE INSTALLER BASIC METABOLIC PANEL Routine 10/06/2018 5:53 AM TILE INSTALLER HC COMPLETE BLD COUNT Routine 10/06/2018 W/AUTO DIFF 5:53 AM TILE INSTALLER ESTIMATED GFR Routine 10/05/2018 5:18 AM TILE INSTALLER BASIC METABOLIC PANEL Routine 10/05/2018 5:18 AM TILE INSTALLER HC COMPLETE BLD COUNT Routine 10/05/2018 W/AUTO DIFF 5:18 AM TILE INSTALLER SURGICAL PATHOLOGY Routine 10/04/2018 REQUEST 1:48 PM TILE INSTALLER ME AN ELECTIVE Routine 10/04/2018 SUPRAGLOTTIC AIRWAY 11:07 AM TILE INSTALLER Procedure Note - Bhavik Burt CRNA - 10/04/2018 11:07 AM TILE INSTALLER Airway Date/Time: 10/04/2018 11:02 AM Performed by: [...] 1 ESTIMATED GFR Routine 10/04/2018 6:13 AM TILE INSTALLER COMPREHENSIVE METABOLIC Routine 10/04/2018 PANEL 6:13 AM TILE INSTALLER PROTHROMBIN TIME WITH INR Routine 10/04/2018 6:13 AM TILE INSTALLER HC COMPLETE BLD COUNT Routine 10/04/2018 W/AUTO DIFF 6:13 AM TILE INSTALLER URINE CULTURE STAT 10/03/2018 6:01 PM TILE INSTALLER GRAM STAIN STAT 10/03/2018 6:01 PM TILE INSTALLER URINALYSIS SCREEN AND STAT 10/03/2018 MICROSCOPY, WITH REFLEX 5:27 PM TILE INSTALLER TO CULTURE XR CHEST 1 VW PORTABLE STAT 10/03/2018 3:42 PM TILE INSTALLER TYPE AND SCREEN Routine 10/03/2018 3:30 PM TILE INSTALLER PARTIAL THROMBOPLASTIN STAT 10/03/2018 TIME (PTT) 3:30 PM TILE INSTALLER PROTHROMBIN TIME WITH INR STAT 10/03/2018 3:30 PM TILE INSTALLER HC COMPLETE BLD COUNT STAT 10/03/2018 W/AUTO DIFF 3:30 PM TILE INSTALLER ECG ED PRELIMINARY Routine 10/03/2018 INTERPRETATION 3:08 PM TILE INSTALLER MRI LUMBAR SPINE WO STAT 10/03/2018 CONTRAST 3:08 PM TILE INSTALLER ECG 12-LEAD STAT 10/03/2018 1:54 PM TILE INSTALLER POC GLUCOSE Routine 07/11/2018 11:40 AM TILE INSTALLER ESTIMATED GFR Routine 07/11/2018 8:40 AM TILE INSTALLER COMPREHENSIVE METABOLIC Routine 07/11/2018 PANEL 8:40 AM TILE INSTALLER HC COMPLETE BLD COUNT Routine 07/11/2018 W/AUTO DIFF 8:40 AM TILE INSTALLER ECHOCARDIOGRAM 2D Routine 07/09/2018 COMPLETE W MMODE SPECTRAL 8:57 PM TILE INSTALLER COLOR DOPPLER (03392) ARTERIAL BLOOD GAS STAT 07/09/2018 7:29 PM TILE INSTALLER ECG 12-LEAD STAT 07/09/2018 7:09 PM TILE INSTALLER BLOOD CULTURE, AEROBIC & Routine 07/09/2018 ANAEROBIC 7:03 PM TILE INSTALLER C-REACTIVE PROTEIN STAT 07/09/2018 6:59 PM TILE INSTALLER ESTIMATED GFR STAT 07/09/2018 6:59 PM TILE INSTALLER LIPASE LEVEL STAT 07/09/2018 6:59 PM TILE INSTALLER PHOSPHORUS LEVEL STAT 07/09/2018 6:59 PM TILE INSTALLER PROCALCITONIN STAT 07/09/2018 6:59 PM TILE INSTALLER PROTHROMBIN TIME WITH INR STAT 07/09/2018 6:59 PM TILE INSTALLER PARTIAL THROMBOPLASTIN STAT 07/09/2018 TIME (PTT) 6:59 PM TILE INSTALLER MAGNESIUM LEVEL STAT 07/09/2018 6:59 PM TILE INSTALLER CREATINE KINASE, TOTAL STAT 07/09/2018 (CPK) 6:59 PM TILE INSTALLER TROPONIN STAT 07/09/2018 6:59 PM TILE INSTALLER THYROID STIMULATING STAT 07/09/2018 HORMONE 6:59 PM TILE INSTALLER T4, FREE STAT 07/09/2018 6:59 PM TILE INSTALLER LACTIC ACID LEVEL STAT 07/09/2018 6:59 PM TILE INSTALLER IONIZED CALCIUM STAT 07/09/2018 6:59 PM TILE INSTALLER COMPREHENSIVE METABOLIC STAT 07/09/2018 PANEL 6:59 PM TILE INSTALLER HC COMPLETE BLD COUNT STAT 07/09/2018 W/AUTO DIFF 6:59 PM TILE INSTALLER B NATRIURETIC PEPTIDE STAT 07/09/2018 6:59 PM TILE INSTALLER BLOOD CULTURE, AEROBIC & Routine 07/09/2018 ANAEROBIC 6:59 PM TILE INSTALLER XR CHEST 1 VW PORTABLE STAT 07/09/2018 6:52 PM TILE INSTALLER POC GLUCOSE Routine 07/09/2018 6:06 PM TILE INSTALLER GRAM STAIN Routine 07/08/2018 5:10 PM TILE INSTALLER RESPIRATORY CULTURE Routine 07/08/2018 5:[address] ABDOMEN PELVIS W WO STAT 07/08/2018 CONTRAST 10:28 AM TILE INSTALLER ESTIMATED GFR Routine 07/08/2018 9:31 AM TILE INSTALLER BASIC METABOLIC PANEL Routine 07/08/2018 9:31 AM TILE INSTALLER HC COMPLETE BLD COUNT Routine 07/08/2018 W/AUTO DIFF 9:31 AM TILE INSTALLER VENOUS BLOOD GAS Routine 07/08/2018 6:14 AM TILE INSTALLER ECG 12-LEAD STAT 07/08/2018 5:55 AM TILE INSTALLER TROPONIN Timed 07/08/2018 3:44 AM TILE INSTALLER LACTIC ACID LEVEL, SEPSIS Timed 07/08/2018 - NOW AND REPEAT 2X EVERY 3:44 AM TILE INSTALLER [address] ANGIOGRAM PE CHEST STAT 07/08/2018 12:24 AM TILE INSTALLER TROPONIN Timed 07/08/2018 12:19 AM TILE INSTALLER LACTIC ACID LEVEL, SEPSIS Timed 07/08/2018 - NOW AND REPEAT 2X EVERY 12:19 AM TILE INSTALLER 3 HOURS ECG 12-LEAD STAT 07/08/2018 12:02 AM TILE INSTALLER CONSULT TO SEPSIS Routine 07/07/2018 Sepsis, due to RESPONSE TEAM 9:38 PM TILE INSTALLER unspecified organism (HCC) BLOOD CULTURE, AEROBIC & Routine 07/07/2018 ANAEROBIC 8:51 PM TILE INSTALLER ECG ED PRELIMINARY Routine 07/07/2018 INTERPRETATION 8:49 PM TILE INSTALLER ME CRITICAL CARE, E/M Routine 07/07/2018 30-74 MINUTES 8:49 PM TILE INSTALLER URINALYSIS SCREEN AND STAT 07/07/2018 MICROSCOPY, WITH REFLEX 8:43 PM TILE INSTALLER TO CULTURE GRAM STAIN STAT 07/07/2018 8:43 PM TILE INSTALLER URINE CULTURE STAT 07/07/2018 8:43 PM TILE INSTALLER ESTIMATED GFR STAT 07/07/2018 8:38 PM TILE INSTALLER B NATRIURETIC PEPTIDE STAT 07/07/2018 8:38 PM TILE INSTALLER TROPONIN STAT 07/07/2018 8:38 PM TILE INSTALLER LIPASE LEVEL STAT 07/07/2018 8:38 PM TILE INSTALLER LACTIC ACID LEVEL, SEPSIS STAT 07/07/2018 - NOW AND REPEAT 2X EVERY 8:38 PM TILE INSTALLER 3 HOURS HEPATIC FUNCTION PANEL STAT 07/07/2018 8:38 PM TILE INSTALLER BASIC METABOLIC PANEL STAT 07/07/2018 8:38 PM TILE INSTALLER HC COMPLETE BLD COUNT STAT 07/07/2018 W/AUTO DIFF 8:38 PM TILE INSTALLER ECG 12-LEAD STAT 07/07/2018 8:37 PM TILE INSTALLER BLOOD CULTURE, AEROBIC & Routine 07/07/2018 ANAEROBIC 8:35 PM TILE INSTALLER XR CHEST 1 VW PORTABLE STAT 07/07/2018 8:32 PM TILE INSTALLER FL PYELOGRAM RETROGRADE Routine 02/15/2018 2:31 PM CDT ANESTHESIA INTUBATION Routine 02/15/2018 1:02 PM CDT Procedure Note - Angel Alvarez CRNA - 02/15/2018 1:02 PM CDT Airway Performed by: ANGEL ALVAREZ Authorized by: MAINOR MIMS ME AN ELECTIVE Routine 02/15/2018 SUPRAGLOTTIC AIRWAY 12:57 [...] testing W/AUTO DIFF 12:20 PM CDT after 01/23/2018 Results * NM Bone Scan Whole Body (10/07/2018 3:51 PM TILE INSTALLER) Specimen Narrative Performed At Procedure:NM BONE SCAN WHOLE BODY [facility] REFERRING PHYSICIAN:RUBEN SETH HISTORY:severe pain right [...] seen IMPRESSION: Negative whole-body bone scan exam. [id number] Procedure Note Interface, Radiology Results Incoming - 10/07/2018 4:52 PM TILE INSTALLER Procedure:NM BONE SCAN WHOLE BODY REFERRING PHYSICIAN:RUBEN [...] seen IMPRESSION: Negative whole-body bone scan exam. [facility]-[id number] Performing Organization Address City/State/Zipcode Phone Number [facility] [address] [place] [address] * XR Hip 2-3 View Right (10/07/2018 1:32 PM TILE INSTALLER) Specimen Narrative Performed At EXAMINATION:XR HIP 2-3 [...] Negative for fracture or focal bony lesion. [id number] Procedure Note Hm Interface, Radiology Results Incoming - 10/07/2018 3:51 PM TILE INSTALLER EXAMINATION: XR HIP 2-3 VIEWS RIGHT CLINICAL [...] Negative for fracture or focal bony lesion. [id number] Performing Organization Address City/State/Zipcode Phone Number [facility] [address] [place] [address] * Us duplex venous lower extremity (10/07/2018 10:37 AM TILE INSTALLER) Specimen Narrative Performed At EXAMINATION:US DUPLEX VENOUS [...] is no evidence of deep venous thrombosis. [facility]-[id number] Procedure Note [facility], Radiology Results Incoming - 10/07/2018 10:45 AM TILE INSTALLER EXAMINATION: US DUPLEX VENOUS LOWER EXTREMITY BILATERAL [...] is no evidence of deep venous thrombosis. [facility]-[id number] Performing Organization Address City/State/Zipcode Phone Number [facility] [address] [place] [address] * MRI Pelvis W Wo Contrast (10/06/2018 5:50 PM TILE INSTALLER) Specimen Narrative Performed At [facility] EXAMINATION:MRI PELVIS [...] evidence of abscess formation or inflammatory changes. [facility]-[id number] Procedure Note [facility], Radiology Results Incoming - 10/06/2018 6:35 PM TILE INSTALLER EXAMINATION: MRI PELVIS W WO CONTRAST CLINICAL [...] evidence of abscess formation or inflammatory changes. [id number] Performing Organization Address City/State/Zipcode Phone Number [facility] [address] [place] [address] * CT Abdomen Pelvis W Contrast (10/06/2018 5:35 PM TILE INSTALLER) Specimen Narrative Performed At EXAMINATION:CT ABDOMEN PELVIS [...] with maximum diameter of 3.4 cm, unchanged. [facility]-[id number] Procedure Note Interface, Radiology Results Incoming - 10/06/2018 5:55 PM TILE INSTALLER EXAMINATION: CT ABDOMEN PELVIS W CONTRAST CLINICAL [...] with maximum diameter of 3.4 cm, unchanged. [facility]-[id number] Performing Organization Address City/State/Zipcode Phone Number [facility] [address] [place] [address] * Estimated GFR (10/06/2018 5:53 AM TILE INSTALLER) Only the most recent of 7 results within the time period is included. Estimated GFR 85 mL/min/1.73 m2 [place] Comment: [facility] G1 >=90 Normal or high G2 60-89Mildly decreased [id number] Mildly to moderately decreased [id number] Moderately to severely decreased G4 15-29Severely decreased G5 <15Kidney failure The eGFR was calculated using the Chronic Kidney Disease Epidemiology Collaboration (CKD-EPI) equation. Interpretation is based on recommendations of the National Kidney Foundation-Kidney Disease Outcomes Quality Initiative (NKF-KDOQI) published in 2014. Specimen Plasma specimen Performing Organization Address City/State/Zipcode Phone Number [facility] DE[facility]MENT OF [address] [place] [address] PATHOLOGY AND GENOMIC MEDICINE [facility] [address] [place], [place] [address] [place] [address] * CBC with platelet and differential (10/06/2018 5:53 AM TILE INSTALLER) Only the most recent of 9 results within the time period is included. WBC 6.1 4.2 - 11.0 k/uL [facility] RBC 4.07 4.04 - 5.86 m/uL [facility] HGB 12.0 (L) 13.0 - 17.3 g/dL [facility] HCT 37.8 34.0 - 45.0 % [facility] MCV 92.9 80.0 - 98.0 fL [facility] MCH 29.5 27.0 - 34.0 pg [facility] MCHC 31.7 31.5 - 36.5 g/dL [facility] RDW - SD 46.1 37.0 - 51.0 fL [facility] MPV 9.6 7.4 - 10.4 fL [facility] Platelet count 238 150 - 400 k/uL [facility] Nucleated RBC 0.00 /100 WBC [facility] Neutrophils 52.7 36.0 - 66.0 % [facility] Lymphocytes 32.8 24.0 - 44.0 % [facility] Monocytes 10.3 (H) 0.0 - 6.0 % [facility] Eosinophils 2.6 0.0 - 6.0 % [facility] Basophils 0.5 0.0 - 1.2 % [facility] Immature 1.1 (H) 0.0 - 1.0 % [facility] Specimen Blood Performing Organization Address City/[facility]/Zipcode Phone Number [facility] [address] [place] [address] PATHOLOGY AND GENOMIC MEDICINE [address] * Basic metabolic panel (10/06/2018 5:53 AM TILE INSTALLER) Only the most recent of 5 results within the time period is included. [facility] Sodium 141 135 - 150 mEq/L [facility] Potassium 4.1 3.5 - 5.0 mEq/L [facility] Chloride 104 98 - 112 mEq/L [facility] CO2 27 24 - 31 mmol/L [facility] Anion gap 10@ANIO 7 - 15 mEq/L [facility] BUN 14 7 - 18 mg/dL [facility] Creatinine 0.90 0.70 - 1.20 mg/dL [facility] Glucose 98 65 - 100 mg/dL [facility] Calcium 8.6 (L) 8.8 - 10.2 mg/dL [facility] Specimen Plasma specimen Performing Organization Address City/[facility] Phone Number [facility] [address] [place] [phone] PATHOLOGY AND GENOMIC MEDICINE [address] * Surgical pathology request (10/04/2018 1:48 PM TILE INSTALLER) [facility] DE[place] OF PATHOLOGY AND GENOMIC MEDICINE Surgical See link below for PDF Lab [facility] DE[facility] pathology Report OF PATHOLOGY report AND GENOMIC MEDICINE Result status This is Final Report for [facility] [id number] OF PATHOLOGY AND GENOMIC MEDICINE Specimen Performing Organization Address City/[facility]/[place] [address] PATHOLOGY AND GENOMIC MEDICINE * Prothrombin time with INR (10/04/2018 6:13 AM TILE INSTALLER) Only the most recent of 3 results within the time period is included. [facility] Prothrombin 13.9 11.5 - 14.5 sec [place] time [facility] INR 1.10 [place] Comment: AUREA RICE For patients on anticoagulant [...] [place] OF [address] [place] [address] PATHOLOGY AND GENOMIC MEDICINE [facility] [address] * Comprehensive metabolic panel (10/04/2018 6:13 AM TILE INSTALLER) Only the most recent of 3 results within the time period is included. Sodium 141 135 - 150 mEq/L [facility] Potassium 4.2 3.5 - 5.0 mEq/L [facility] Chloride 107 98 - 112 mEq/L [facility] CO2 24 24 - 31 mmol/L [facility] Anion gap 10@ANIO 7 - 15 mEq/L [facility] BUN 12 7 - 18 mg/dL [facility] Creatinine 0.90 0.70 - 1.20 mg/dL [facility] Glucose 117 (H) 65 - 100 mg/dL [facility] Calcium 8.7 (L) 8.8 - 10.2 mg/dL [facility] Protein 6.4 6.3 - 8.3 g/dL [facility] Albumin 2.9 (L) 3.5 - 5.0 g/dL [facility] A/G ratio 0.8 0.7 - 3.8 [facility] Alkaline 58 0 - 129 U/L [place] phosphatase [facility] AST 18 10 - 50 U/L [facility] ALT 19 5 - 50 U/L [facility] Total bilirubin 0.4 0.2 - 1.2 mg/dL [facility] Specimen Plasma specimen Performing Organization Address City/State/Zipcode Phone Number [facility] [place] OF [address] [place] [address] PATHOLOGY AND GENOMIC MEDICINE [facility] [address] [place], [place] [phone] [place] [address] * Gram stain (10/03/2018 6:01 PM TILE INSTALLER) Only the most recent of 3 results within the time period is included. Gram stain Few WBC's [place] result No organisms seen [facility] Comment: HOSPITAL Specimen Information Specimen Source: Urine Specimen Site: Clean catch Specimen Urine Performing Organization Address City/[facility] Phone Number [facility] [place] [address] PATHOLOGY AND GENOMIC MEDICINE [address] * Urine culture (10/03/2018 6:01 PM TILE INSTALLER) Only the most recent of 2 results within the time period is included. [facility] Urine culture No growth after 24 hours [place] isolate Comment: AMISH Specimen Information HOSPITAL Specimen Source: Urine Specimen Site: Clean catch Specimen Urine Performing Organization Address City/[facility] Phone Number [facility] [place] [address] PATHOLOGY AND GENOMIC MEDICINE [address] * Urinalysis screen and microscopy, with reflex to culture (10/03/2018 5:27 PM TILE INSTALLER) Only the most recent of 2 results within the time period is included. Specimen site Clean catch [facility] Color, UA Yellow [facility] Appearance, UA Clear [facility] Specific 1.008 1.001 - 1.035 [place] gravity, [facility] pH, UA 7.0 5.0 - 8.5 [facility] Protein, UA Negative Negative [facility] Glucose, UA Negative Negative [facility] Ketones, UA Negative Negative [facility] Bilirubin, UA Negative Negative [facility] Blood, UA Negative Negative [facility] Nitrite, UA Negative Negative [facility] Urobilinogen, Negative <2.0 [facility] Leukocyte Large (A) Negative [place] esterase, UA [facility] Epithelial Few /HPF [place] cells, UA [facility] WBC, UA 76 (H) 0 - 1 /HPF [facility] RBC, UA 9 (H) 0 - 5 /HPF [facility] Bacteria, UA None seen None seen [facility] Yeast, UA Few (A) [facility] Yeast with None seen [place] pseudohyphae, [facility] Specimen Urine Performing Organization Address City/State/Zipcode Phone Number [facility] DE[facility] OF [address] [place] [address] PATHOLOGY AND GENOMIC MEDICINE [place] [address] [place], [place] [phone] [place] [address] * XR Chest 1 Vw Portable (10/03/2018 3:42 PM TILE INSTALLER) Only the most recent of 3 results [...] lesions. [facility][id number] Procedure Note Hm Interface, Radiology Results Incoming - 10/03/2018 3:49 PM TILE INSTALLER EXAMINATION: XR CHEST 1 VW PORTABLE CLINICAL HISTORY: preop COMPARISON: July 09, 2018 IMPRESSION: Lines: None Lungs and pleura: Bibasilar subsegmental atelectasis versus scarring. No consolidations. No pleural effusion or pneumothorax. Heart and mediastinum: Stable appearance of cardiomediastinal silhouette. Bones: No suspicious osseous lesions. [facility]-[id number] Performing Organization Address City/State/Zipcode Phone Number [facility] [address] [place] [address] * Partial thromboplastin time, activated (10/03/2018 3:30 PM TILE INSTALLER) Only the most recent of 2 results within the time period is included. Pathologist [facility] PTT 27.5 23.0 - 36.0 sec [place] Comment: [facility] PTT therapeutic range for [facility] unfractionated heparin is HOSPITAL 61.0-112.0 seconds which corresponds to Anti-Xa 0.3-0.7 U/ml. Note:Change in Panic Value The PTT Panic Value is changing from 110 sec. to 100 sec. due to new instrumentation and reagents. Correlation studies have been performed to validate this result. Specimen Blood Performing Organization Address City/[facility]/Zipcode Phone Number [facility] DE[place]MENT OF [address] [place], [place] [phone] PATHOLOGY AND GENOMIC MEDICINE [address] * Type and screen (10/03/2018 3:30 PM TILE INSTALLER) Pathologist [facility] ABO grouping A [facility] Rh type POS [facility] Antibody screen NEG [place] (gel) [facility] Specimen Blood Performing Organization Address City/[facility] Phone Number [facility] DE[facility] [place] [phone] PATHOLOGY AND GENOMIC MEDICINE [place] [phone] * ECG ED Preliminary Interpretation - Not an Order (10/03/2018 3:08 PM TILE INSTALLER) Only the most recent of 2 results within the time period is included. Narrative Performed At Violet Newsome DO 10/04/20188:21 PM ECG ED Preliminary Interpretation - Not an Order Performed by: Violet Newsome DO Authorized by: Violet Newsome DO ECG reviewed by ED Physician in the absence of a agriculture laborer: yes Interpretation: Interpretation: abnormal Rate: ECG rate:59 ECG rate assessment: bradycardic Rhythm: Rhythm: sinus bradycardia Ectopy: Ectopy: none QRS: QRS axis:Left QRS intervals:Normal Conduction: Conduction: normal ST segments: ST segments:Normal T waves: T waves: normal * MRI Lumbar Spine Wo Contrast (10/03/2018 3:08 PM TILE INSTALLER) Specimen Narrative Performed At This [facility] has an attachment that is not [...] the lower lumbar spine without significant stenosis. [facility]-[id number] Procedure Note Hm Interface, Radiology Results - 10/03/2018 3:21 PM TILE INSTALLER EXAMINATION: MRI LUMBAR SPINE WO CONTRAST CLINICAL [...] the lower lumbar spine without significant stenosis. [facility]-[id number] Performing Organization Address City/State/Zipcode Phone Number [facility] [address] [place] [address] * ECG 12 lead (10/03/2018 1:54 PM TILE INSTALLER) Only the most recent of 5 results within the time period is included. Ventricular 59 [facility] MUSE rate Atrial rate 59 [facility] ME interval 164 [facility] M[facility] QRSD interval 142 [...] At Performing Organization Address City/State/Zipcode Phone Number [facility] [address] [place] [address] * POC glucose (07/11/2018 11:40 AM TILE INSTALLER) Only the most recent of 2 results within the time period is included. POC glucose 97 65 - 100 mg/dL [place] Comment: AUREA RICE Meter ID: [id number] [facility] [employer] Worker: formerly [facility] Specimen Performing Organization Address City/State/Zipcode Phone Number [facility] [address] [place] [address] PATHOLOGY AND GENOMIC MEDICINE [place] AUREA RICE [facility] [address] * Echocardiogram complete w contrast and 3D if needed (07/09/2018 8:57 PM TILE INSTALLER) Ao Root 3.43 cm [facility] Diameter [...] i VTI 1.26 cm2/m2 [facility] BSA [place] MR Vmax 4.93 m/s [facility] BMI [...] Organization Address City/State/Zipcode Phone Number [facility] [address] [place] [address] * Arterial blood gas (07/09/2018 7:29 PM TILE INSTALLER) [employer] Worker germain owens [facility] Collection site rra [facility] O2 therapy nc [facility] pH, arterial 7.462 (H) 7.350 - 7.450 units [facility] pCO2, arterial 35.9 35.0 - 45.0 mmHg [facility] pO2, arterial 80.4 80.0 - 90.0 mmHg [facility] O2 saturation, 96.4 95.0 - 100.0 % [place] arterial [facility] Base excess, 1.8 mEq/L [place] arterial [facility] Bicarbonate 25.6 21.0 - 28.0 mEq/L [facility] O2 content 17.7 VOL% [facility] FiO2, inspired 28.0 % [place] O2% [facility] Carboxyhemoglob 0.3 0.0 - 1.4 % [place] in Comment: [facility] Reference Ranges: [facility] Carboxyhemoglobin [facility] Non smoker: 0.0 - 2.0% Smoker: 2.1 - 5.0% Heavy smoker: 5.1 - 9% Methemoglobin 1.5 (H) 0.0 - 1.0 % [facility] Hemoglobin, 13.3 (L) 14.0 - 18.0 g/dL [place] blood gas [facility] pO2, A-a 76.7 mmHg [facility] Specimen Blood Performing Organization Address City/State/Zipcode Phone Number [facility] DEPARTMENT OF [address] [place] [place] [address] PATHOLOGY AND GENOMIC MEDICINE [facility] [address] [place], [place] [id number] [place] [address] * Blood culture, aerobic & anaerobic (07/09/2018 7:03 PM TILE INSTALLER) Only the most recent of 4 results within the time period is included. Pathologist [facility] Blood culture No growth after 5 days of [place] isolate incubation. [facility]ISH Comment: HOSPITAL Specimen Information Specimen Source: Blood Specimen Site: Peripheral Hand Left Specimen Blood Performing Organization Address City/[facility]/Zipcode Phone Number [facility] DEPARTMENT OF [address] [place] [address] PATHOLOGY AND GENOMIC MEDICINE [address] * Procalcitonin (07/09/2018 6:59 PM TILE INSTALLER) Procalcitonin 19.90 (H) <=0.07 ng/mL [facility] Comment: INTERPRETIVE INFORMATION: Procalcitonin Effective February 07, 2018, this test is performed by the [employer] Procalcitonin assay. A correction has been applied to optimize cutoff's established for the [employer] PCT sensitive Kryptor assay. Procalcitonin > 2.00 [...] condition(s) of the individual patient. Performed at: [facility] [address] [facility] [address] Specimen Serum Performing Organization Address City/[facility] Phone Number [facility] [address] [place] [address] [facility] [address] [place] [address] * Troponin (07/09/2018 6:59 PM TILE INSTALLER) Only the most recent of 4 results within the time period is included. [facility] Troponin <0.30 0.00 - 0.30 ng/mL [place] Comment: [facility] 0.11 - 1.49 [facility] indicate increased risk of acute coronary syndrome. >=1.5 ng/ml Consistent with acute myocardial infarction. The diagnostic value of a single normal or non-diagnostic result is questionable.Serial samples at 2-6 hour intervals are required to rule out acute myocardial injury. Specimen Plasma specimen Performing Organization Address City/[facility] Phone Number [facility] [place] [address] PATHOLOGY AND [facility] MEDICINE [address] * C-reactive protein (07/09/2018 6:59 PM TILE INSTALLER) [facility] CRP 9.65 (H) 0.00 - 0.50 mg/dL [facility] Specimen Plasma specimen Performing Organization Address City/[facility] Phone Number [facility] [place] [address] PATHOLOGY AND [facility] MEDICINE [address] * Thyroid stimulating hormone (07/09/2018 6:59 PM TILE INSTALLER) [facility] TSH 0.30 0.27 - 4.20 uIU/mL [facility] Specimen Plasma specimen Performing Organization Address [facility] Phone Number [facility] [place] [address] PATHOLOGY AND [facility] MEDICINE [address] * T4, free (07/09/2018 6:59 PM TILE INSTALLER) T4, free 0.90 0.90 - 1.70 ng/dL [facility] Specimen Plasma specimen Performing Organization Address City/[facility] Phone Number [facility] DEPARTMENT OF [address] [facility] [place] [address] PATHOLOGY AND GENOMIC MEDICINE [address] * Phosphorus level (07/09/2018 6:59 PM TILE INSTALLER) Phosphorus 2.8 2.4 - 4.5 mg/dL [facility] Specimen Plasma specimen Performing Organization Address City/[facility] Phone Number [facility] DEPARTMENT [address] [place] [address] PATHOLOGY AND GENOMIC MEDICINE [address] * B natriuretic peptide (07/09/2018 6:59 PM TILE INSTALLER) Only the most recent of 2 results within the time period is included. BNP 297 (H) 0 - 100 pg/mL [facility] Specimen Blood Performing Organization Address [facility] Phone Number [facility] DEPARTMENT [address] [place] [address] PATHOLOGY AND GENOMIC MEDICINE [address] * Magnesium level (07/09/2018 6:59 PM TILE INSTALLER) Magnesium 2.00 1.60 - 2.40 mg/dL [facility] Specimen Plasma specimen Performing Organization Address City/[facility] Phone Number [facility] DEPARTMENT [address] [place] [address]. [place] [address] PATHOLOGY AND GENOMIC MEDICINE [address] * Lipase level (07/09/2018 6:59 PM TILE INSTALLER) Only the most recent of 2 results within the time period is included. Lipase 16 13 - 60 U/L [facility] Specimen Plasma specimen Performing Organization Address City/[facility] Phone Number [facility] DEPARTMENT OF [address] [place] [address] PATHOLOGY AND GENOMIC MEDICINE [place] [address] [facility] [address]. [address] * Lactic acid level (07/09/2018 6:59 PM TILE INSTALLER) Lactic acid 1.7 0.5 - 2.2 mmol/L [facility] Specimen Blood Performing Organization Address [facility] Phone Number [facility] DEPARTMENT OF [address] [place] [address] PATHOLOGY AND GENOMIC MEDICINE [address] * Creatine kinase, total (CPK) (07/09/2018 6:59 PM TILE INSTALLER) Pathologist [facility] Creatine kinase 69 39 - 308 U/L [facility] Specimen Plasma specimen Performing Organization Address [facility] Phone Number [facility] DEPARTMENT OF [address] [place] [address] PATHOLOGY AND GENOMIC MEDICINE [address] * Ionized calcium (07/09/2018 6:59 PM TILE INSTALLER) Pathologist [facility] pH 7.40 [facility] Ionized calcium 1.16 1.11 - 1.32 mmol/L [facility] Specimen Plasma specimen Performing Organization Address [facility] Phone Number [facility] DEPARTMENT OF [address] [place] [address] PATHOLOGY AND GENOMIC MEDICINE [address] * Respiratory culture (07/08/2018 5:10 PM TILE INSTALLER) Pathologist [facility] Respiratory Normal oral richard isolated. [place] culture isolate Comment: AMISH Specimen Information HOSPITAL Specimen Source: Bronchial Washing Specimen Site: All Lobes Specimen Bronchial washing - Washing Performing Organization Address City/State/Zipcode Phone Number [facility] DEPARTMENT OF [address] [place] [address] PATHOLOGY AND GENOMIC MEDICINE [address] * CT Abdomen Pelvis W Wo Contrast (07/08/2018 10:28 AM TILE INSTALLER) Specimen Narrative Performed At EXAMINATION:CT ABDOMEN PELVIS W WO CONTRAST [facility] CLINICAL HISTORY:Abnormal findings on diagnostic imaging of other parts of digestive tract, liver [id number] cm possible liver lesion TECHNIQUE: Multiple axial [...] factors High risk patients: *Greater than 20 [id number] history of smoking, or equivalent second hand [...] short axes rounded to the nearest mm. [id number] Procedure Note Hm Interface, Radiology Results [facility] - 07/08/2018 10:54 AM TILE INSTALLER EXAMINATION: CT ABDOMEN PELVIS W WO CONTRAST [...] High risk patients: * Greater than 20 [id number] history of smoking, or equivalent second hand [...] short axes rounded to the nearest mm. [id number] Performing Organization Address City/State/Zipcode Phone Number [facility] [address] [place] [address] * Venous blood gas (07/08/2018 6:14 AM TILE INSTALLER) [employer] Work[employer] [id number] [facility] Collection site R HAND [facility] pH, venous 7.423 (H) 7.320 - 7.420 units [facility] pCO2, venous 44.1 (L) 45.0 - 51.0 mmHg [facility] pO2, venous 59.3 (H) 25.0 - 40.0 mmHg [facility] O2 saturation, 91.3 (H) 40.0 - 70.0 % [place] venous [facility] Base excess, 4.3 (H) -2.0 - 2.0 mEq/L [place] venous [facility] Bicarbonate 28.8 (H) 21.0 - 28.0 mEq/L [facility] O2 content 17.1 VOL% [facility] FiO2, inspired 21.0 % [place] O2% [facility] Carboxyhemoglob 0.9 0.0 - 1.4 % [place] in Comment: [facility] Reference Ranges: [facility] Carboxyhemoglobin [facility] Non smoker: 0.0 - 2.0% Smoker: 2.1 - 5.0% Heavy smoker: 5.1 - 9% Methemoglobin 1.3 (H) 0.0 - 1.0 % [facility] Hemoglobin, 13.6 (L) 14.0 - 18.0 g/dL [place] blood gas [facility] Specimen Blood Performing Organization Address City/[facility]/Zipcode Phone Number [facility] DEPARTMENT OF [address] [place] [address] PATHOLOGY AND GENOMIC MEDICINE [address] * Lactic acid level, SEPSIS - Now and repeat 2x every 3 hours (07/08/2018 3:44 AM TILE INSTALLER) Only the most recent of 3 results within the time period is included. Lactic acid 1.2 0.5 - 2.2 mmol/L [facility] Specimen Blood Performing Organization Address [facility] Hospital[facility] [place] [address] PATHOLOGY AND GENOMIC MEDICINE [address] * CT Angiogram Pe Chest (07/08/2018 12:24 AM TILE INSTALLER) Specimen Narrative Performed At EXAMINATION: RADIANT CT [...] are seen of left renal collecting system. [id number] Procedure Note [facility], Radiology Results Incoming - 07/08/2018 12:45 AM TILE INSTALLER EXAMINATION: CT ANGIOGRAM PE CHEST CLINICAL HISTORY: [...] are seen of left renal collecting system. [facility]-[id number] Performing Organization Address City/State/Zipcode Phone Number [facility] [address] [place] [address] * Sepsis Clinical Assessment (07/07/2018 9:38 PM TILE INSTALLER) Narrative Performed At Robert Rich NP 07/08/20186:24 AM Reperfusion assessment done Sepsis Clinical Assessment Performed by: Robert Rich NP Authorized by: Robert Rich NP Sepsis Clinical Assessment General Assessment Information Current sepsis score:2 On comfort care?: No If score does not worsen, snooze alerts until:07/08/2018 09:00 TILE INSTALLER SIRS Criteria Temperature > 38.3 C (101 [...] administrations. * CRITICAL CARE (07/07/2018 8:49 PM TILE INSTALLER) Narrative Performed At Herminio Dick MD 07/08/2018 [...] * Hepatic function panel (07/07/2018 8:38 PM TILE INSTALLER) Pathologist [facility] Albumin 3.2 (L) 3.5 - 5.0 g/dL [facility] Total bilirubin 0.9 0.2 - 1.2 mg/dL [facility] Bilirubin 0.2 0.0 - 0.4 mg/dL [place] direct [facility] Alkaline 57 0 - 129 U/L [place] phosphatase [facility] Protein 6.3 6.3 - 8.3 g/dL [facility] ALT 17 5 - 50 U/L [facility] AST 26 10 - 50 U/L [facility] Specimen Plasma specimen Performing Organization Address City/[facility] Phone Number [facility] DEPARTMENT OF [address] [place] [address] PATHOLOGY AND GENOMIC MEDICINE [facility] [address] [place], [place] [id number] [place] [address] * [place] Pyelogram Retrograde (02/15/2018 2:31 PM CDT) Specimen Narrative [facility]formed At [facility]. INDICATION: Retrograde pyelogram COMPARISON: None. [...] 47 seconds. 4 image(s). Performing Organization Address City/[facility]/Zipcode Phone Number [facility] [address] [place] [address] * ECG Pre/Post Op (02/10/2018 12:41 PM CDT) Ventricular 49 [facility] rate Atrial rate 49 [facility] ME interval 136 [facility] QRSD interval 130 [...] Specimen Performing Organization Address City/State/Zipcode Phone Number [facility] MUSE [address] [place] [address] * Estimated GFR (02/10/2018 12:20 PM CDT) GFR Non Af Amer 73 mL/min/1.73 m2 [facility] DEPARTMENT OF PATHOLOGY AND GENOMIC MEDICINE GFR Af Amer 89 mL/min/1.73 m2 [facility] DE[facility] Comment: OF PATHOLOGY [...] [place] [address] [place] [address] PATHOLOGY AND GENOMIC MEDICINE after 01/23/2018 Insurance Type Payer Benefit Subscriber ID Effective Phone Address Plan / Dates Group Medicare MEDICARE MEDICARE xxxxxxxxxxx 2010-P BROWN, PART A AND resent [place] B Commercial [employer] xxxxxxxx 2017-P [employer] maritzaent Advance Directives Patient has advance care planning documents on file. For more information, plenancy e contact: Brown Michelle [address] [place] [address]
--- OUTSIDE RECORDS SUMMARY | 2019-01-24 12:17 | XMS REPORT | Clinical Summary ---
Author Author [facility] Organization [facility] Address Unknown Phone Unavailable Care Team Providers Care Grocery Packer Name Role Phone Carlos Peña DO PCP [...] Cummins MD 10/04/2018 Anesthesia General Surgery Event [facility] Newsome DO Okuwobi, Olukayode Olatilewa, MD Urinary [...] tract infection with hematuria, site unspecified 07/07/2018 [facility] General Internal Medicine - Encounter [...] Taken Vital Sign Reading 10/07/2018 4:04 PM [employer] Blood Pressure 130/74 10/07/2018 4:04 PM [employer] Pulse 62 10/07/2018 4:04 PM [employer] Temperature 36.1 C (97 F) 10/07/2018 4:04 PM [employer] Respiratory Rate 19 10/07/2018 4:04 PM [employer] Oxygen Saturation 95% - Inhaled Oxygen - Concentration 10/03/2018 12:17 PM [employer] Weight 76.2 kg (168 lb) 10/03/2018 12:17 PM [employer] Height 170.2 cm (5' 7") 10/03/2018 12:17 PM [employer] Body Mass Index 26.31 Plan of Treatment Health Maintenance Due Date Last Done Comments COLONOSCOPY SCREENING 12/08/1995 SHINGLES VACCINES (#1) 12/08/1995 INFLUENZA VACCINE 03/09/2019 07/12/2018 65+ PNEUMOCOCCAL VACCINE 07/12/2019 07/12/2018 (2 of 2 - PPSV23) Procedures Comments Procedure Name Priority Date/Time Associated Diagnosis NM BONE SCAN WHOLE BODY Routine 10/07/2018 3:51 PM [employer] XR HIP 2-3 VIEWS RIGHT Routine 10/07/2018 1:32 PM [employer] US DUPLEX VENOUS LOWER Routine 10/07/2018 EXTREMITY BILATERAL 10:37 AM [employer] MRI PELVIS W WO CONTRAST Routine 10/06/2018 5:[address] ABDOMEN PELVIS W Routine 10/06/2018 CONTRAST 5:35 PM [employer] ESTIMATED GFR Routine 10/06/2018 5:53 AM [employer] BASIC METABOLIC PANEL Routine 10/06/2018 5:53 AM [employer] HC COMPLETE BLD COUNT Routine 10/06/2018 W/AUTO DIFF 5:53 AM [employer] ESTIMATED GFR Routine 10/05/2018 5:18 AM [employer] BASIC METABOLIC PANEL Routine 10/05/2018 5:18 AM [employer] HC COMPLETE BLD COUNT Routine 10/05/2018 W/AUTO DIFF 5:18 AM [employer] SURGICAL PATHOLOGY Routine 10/04/2018 REQUEST 1:48 PM [employer] NH AN ELECTIVE Routine 10/04/2018 SUPRAGLOTTIC AIRWAY 11:07 AM [employer] Procedure Note - Bhavik Burt CRNA - 10/04/2018 11:07 AM [employer] Airway Date/Time: 10/04/2018 11:02 AM Performed by: [...] 1 ESTIMATED GFR Routine 10/04/2018 6:13 AM [employer] COMPREHENSIVE METABOLIC Routine 10/04/2018 PANEL 6:13 AM [employer] PROTHROMBIN TIME WITH INR Routine 10/04/2018 6:13 AM [employer] HC COMPLETE BLD COUNT Routine 10/04/2018 W/AUTO DIFF 6:13 AM [employer] URINE CULTURE STAT 10/03/2018 6:01 PM [employer] GRAM STAIN STAT 10/03/2018 6:01 PM [employer] URINALYSIS SCREEN AND STAT 10/03/2018 MICROSCOPY, WITH REFLEX 5:27 PM [employer] TO CULTURE XR CHEST 1 VW PORTABLE STAT 10/03/2018 3:42 PM [employer] TYPE AND SCREEN Routine 10/03/2018 3:30 PM [employer] PARTIAL THROMBOPLASTIN STAT 10/03/2018 TIME (PTT) 3:30 PM [employer] PROTHROMBIN TIME WITH INR STAT 10/03/2018 3:30 PM [employer] HC COMPLETE BLD COUNT STAT 10/03/2018 W/AUTO DIFF 3:30 PM [employer] ECG ED PRELIMINARY Routine 10/03/2018 INTERPRETATION 3:08 PM [employer] MRI LUMBAR SPINE WO STAT 10/03/2018 CONTRAST 3:08 PM [employer] ECG 12-LEAD STAT 10/03/2018 1:54 PM [employer] POC GLUCOSE Routine 07/11/2018 11:40 AM [employer] ESTIMATED GFR Routine 07/11/2018 8:40 AM [employer] COMPREHENSIVE METABOLIC Routine 07/11/2018 PANEL 8:40 AM [employer] HC COMPLETE BLD COUNT Routine 07/11/2018 W/AUTO DIFF 8:40 AM [employer] ECHOCARDIOGRAM 2D Routine 07/09/2018 COMPLETE W MMODE SPECTRAL 8:57 PM [employer] COLOR DOPPLER ([id number]) ARTERIAL BLOOD GAS STAT 07/09/2018 7:29 PM [employer] ECG 12-LEAD STAT 07/09/2018 7:09 PM [employer] BLOOD CULTURE, AEROBIC & Routine 07/09/2018 ANAEROBIC 7:03 PM [employer] C-REACTIVE PROTEIN STAT 07/09/2018 6:59 PM [employer] ESTIMATED GFR STAT 07/09/2018 6:59 PM [employer] LIPASE LEVEL STAT 07/09/2018 6:59 PM [employer] PHOSPHORUS LEVEL STAT 07/09/2018 6:59 PM [employer] PROCALCITONIN STAT 07/09/2018 6:59 PM [employer] PROTHROMBIN TIME WITH INR STAT 07/09/2018 6:59 PM [employer] PARTIAL THROMBOPLASTIN STAT 07/09/2018 TIME (PTT) 6:59 PM [employer] MAGNESIUM LEVEL STAT 07/09/2018 6:59 PM [employer] CREATINE KINASE, TOTAL STAT 07/09/2018 (CPK) 6:59 PM [employer] TROPONIN STAT 07/09/2018 6:59 PM [employer] THYROID STIMULATING STAT 07/09/2018 HORMONE 6:59 PM [employer] T4, FREE STAT 07/09/2018 6:59 PM [employer] LACTIC ACID LEVEL STAT 07/09/2018 6:59 PM [employer] IONIZED CALCIUM STAT 07/09/2018 6:59 PM [employer] COMPREHENSIVE METABOLIC STAT 07/09/2018 PANEL 6:59 PM [employer] HC COMPLETE BLD COUNT STAT 07/09/2018 W/AUTO DIFF 6:59 PM [employer] B NATRIURETIC PEPTIDE STAT 07/09/2018 6:59 PM [employer] BLOOD CULTURE, AEROBIC & Routine 07/09/2018 ANAEROBIC 6:59 PM [employer] XR CHEST 1 VW PORTABLE STAT 07/09/2018 6:52 PM [employer] POC GLUCOSE Routine 07/09/2018 6:06 PM [employer] GRAM STAIN Routine 07/08/2018 5:10 PM [employer] RESPIRATORY CULTURE Routine 07/08/2018 5:[address] ABDOMEN PELVIS W WO STAT 07/08/2018 CONTRAST 10:28 AM [employer] ESTIMATED GFR Routine 07/08/2018 9:31 AM [employer] BASIC METABOLIC PANEL Routine 07/08/2018 9:31 AM [employer] HC COMPLETE BLD COUNT Routine 07/08/2018 W/AUTO DIFF 9:31 AM [employer] VENOUS BLOOD GAS Routine 07/08/2018 6:14 AM [employer] ECG 12-LEAD STAT 07/08/2018 5:55 AM [employer] TROPONIN Timed 07/08/2018 3:44 AM [employer] LACTIC ACID LEVEL, SEPSIS Timed 07/08/2018 - NOW AND REPEAT 2X EVERY 3:44 AM [employer] [address] ANGIOGRAM PE CHEST STAT 07/08/2018 12:24 AM [employer] TROPONIN Timed 07/08/2018 12:19 AM [employer] LACTIC ACID LEVEL, SEPSIS Timed 07/08/2018 - NOW AND REPEAT 2X EVERY 12:19 AM [employer] 3 HOURS ECG 12-LEAD STAT 07/08/2018 12:02 AM [employer] CONSULT TO SEPSIS Routine 07/07/2018 Sepsis, due to RESPONSE TEAM 9:38 PM [employer] unspecified organism (HCC) BLOOD CULTURE, AEROBIC & Routine 07/07/2018 ANAEROBIC 8:51 PM [employer] ECG ED PRELIMINARY Routine 07/07/2018 INTERPRETATION 8:49 PM [employer] NH CRITICAL CARE, E/M Routine 07/07/2018 30-74 MINUTES 8:49 PM [employer] URINALYSIS SCREEN AND STAT 07/07/2018 MICROSCOPY, WITH REFLEX 8:43 PM [employer] TO CULTURE GRAM STAIN STAT 07/07/2018 8:43 PM [employer] URINE CULTURE STAT 07/07/2018 8:43 PM [employer] ESTIMATED GFR STAT 07/07/2018 8:38 PM [employer] B NATRIURETIC PEPTIDE STAT 07/07/2018 8:38 PM [employer] TROPONIN STAT 07/07/2018 8:38 PM [employer] LIPASE LEVEL STAT 07/07/2018 8:38 PM [employer] LACTIC ACID LEVEL, SEPSIS STAT 07/07/2018 - NOW AND REPEAT 2X EVERY 8:38 PM [employer] 3 HOURS HEPATIC FUNCTION PANEL STAT 07/07/2018 8:38 PM [employer] BASIC METABOLIC PANEL STAT 07/07/2018 8:38 PM [employer] HC COMPLETE BLD COUNT STAT 07/07/2018 W/AUTO DIFF 8:38 PM [employer] ECG 12-LEAD STAT 07/07/2018 8:37 PM [employer] BLOOD CULTURE, AEROBIC & Routine 07/07/2018 ANAEROBIC 8:35 PM [employer] XR CHEST 1 VW PORTABLE STAT 07/07/2018 8:32 PM [employer] FL PYELOGRAM RETROGRADE Routine 02/15/2018 2:31 PM CDT ANESTHESIA INTUBATION Routine 02/15/2018 1:02 PM CDT Procedure Note - Angel Alvarez CRNA - 02/15/2018 1:02 PM CDT Airway Performed by: ANGEL ALVAREZ Authorized by: MAINOR MIMS NH AN ELECTIVE Routine 02/15/2018 SUPRAGLOTTIC AIRWAY 12:57 [...] Bone Scan Whole Body (10/07/2018 3:51 PM [employer]) Specimen Narrative Performed At Procedure:NM BONE SCAN WHOLE BODY [facility] REFERRING PHYSICIAN:RUBEN SETH HISTORY:severe pain right perineumpelvic [...] seen IMPRESSION: Negative whole-body bone scan exam. [id number] Procedure Note Interface, Radiology Results Incoming - 10/07/2018 4:52 PM [employer] Procedure:NM BONE SCAN WHOLE BODY REFERRING PHYSICIAN:RUBEN [...] seen IMPRESSION: Negative whole-body bone scan exam. [id number] Performing Organization Address City/State/Zipcode Phone Number [facility] [address] [place] [address] * XR Hip 2-3 View Right (10/07/2018 1:32 PM [employer]) Specimen Narrative Performed At EXAMINATION:XR HIP 2-3 [...] Negative for fracture or focal bony lesion. [id number] Procedure Note Hm Interface, Radiology Results Incoming - 10/07/2018 3:51 PM [employer] EXAMINATION: XR HIP 2-3 VIEWS RIGHT CLINICAL [...] Negative for fracture or focal bony lesion. [id number] Performing Organization Address City/State/Zipcode Phone Number [facility] [address] [place] [address] * Us duplex venous lower extremity (10/07/2018 10:37 AM [employer]) Specimen Narrative Performed At EXAMINATION:US DUPLEX VENOUS [...] is no evidence of deep venous thrombosis. [facility]-[id number] Procedure Note [facility], Radiology Results Incoming - 10/07/2018 10:45 AM [employer] EXAMINATION: US DUPLEX VENOUS LOWER EXTREMITY BILATERAL [...] is no evidence of deep venous thrombosis. [facility]-[id number] Performing Organization Address City/State/Zipcode Phone Number [facility] [address] [place] [address] * MRI Pelvis W Wo Contrast (10/06/2018 5:50 PM [employer]) Specimen Narrative Performed At [facility] EXAMINATION:MRI PELVIS [...] evidence of abscess formation or inflammatory changes. [id number] Procedure Note [facility], Radiology Results Incoming - 10/06/2018 6:35 PM [employer] EXAMINATION: MRI PELVIS W WO CONTRAST CLINICAL [...] evidence of abscess formation or inflammatory changes. [id number] Performing Organization Address City/State/Zipcode Phone Number [facility] [address] [place] [address] * CT Abdomen Pelvis W Contrast (10/06/2018 5:35 PM [employer]) Specimen Narrative Performed At EXAMINATION:CT ABDOMEN PELVIS [...] with maximum diameter of 3.4 cm, unchanged. [facility]-[id number] Procedure Note Interface, Radiology Results Incoming - 10/06/2018 5:55 PM [employer] EXAMINATION: CT ABDOMEN PELVIS W CONTRAST CLINICAL [...] with maximum diameter of 3.4 cm, unchanged. [facility]-[id number] Performing Organization Address City/State/Zipcode Phone Number [facility] [address] [place] [address] * Estimated GFR (10/06/2018 5:53 AM [employer]) Only the most recent of 7 results within the time period is included. Estimated GFR 85 mL/min/1.73 m2 [facility] Comment: [facility] G1 >=90 Normal or high G2 60-89Mildly decreased [id number] Mildly to moderately decreased R1g31-77 Moderately to severely decreased G4 15-29Severely decreased G5 <15Kidney failure The eGFR was calculated using the Chronic Kidney Disease Epidemiology Collaboration (CKD-EPI) equation. Interpretation is based on recommendations of the National Kidney Foundation-Kidney Disease Outcomes Quality Initiative (NKF-KDOQI) published in 2014. Specimen Plasma specimen Performing Organization Address City/State/Zipcode Phone Number [facility] DEPARTMENT OF [address] [place] [address] [address] [facility] [address] [place], [place] [phone] [place] [address] * CBC with platelet and differential (10/06/2018 5:53 AM [employer]) Only the most recent of 9 results within the time period is included. WBC 6.1 4.2 - 11.0 k/uL [facility] RBC 4.07 4.04 - 5.86 m/uL [facility] HGB 12.0 (L) 13.0 - 17.3 g/dL [facility] HCT 37.8 34.0 - 45.0 % [facility] MCV 92.9 80.0 - 98.0 fL [facility] MCH 29.5 27.0 - 34.0 pg [facility] MCHC 31.7 31.5 - 36.5 g/dL [facility] RDW - SD 46.1 37.0 - 51.0 fL [facility] MPV 9.6 7.4 - 10.4 fL [facility] Platelet count 238 150 - 400 k/uL [facility] Nucleated RBC 0.00 /100 WBC [facility] Neutrophils 52.7 36.0 - 66.0 % [facility] Lymphocytes 32.8 24.0 - 44.0 % [facility] Monocytes 10.3 (H) 0.0 - 6.0 % [facility] Eosinophils 2.6 0.0 - 6.0 % [facility] Basophils 0.5 0.0 - 1.2 % [facility] Immature 1.1 (H) 0.0 - 1.0 % [facility] Specimen Blood Performing Organization Address City/[facility]/Zipcode Phone Number [facility] [address] [place] [address] PATHOLOGY AND GENOMIC MEDICINE [address] * Basic metabolic panel (10/06/2018 5:53 AM [employer]) Only the most recent of 5 results within the time period is included. [facility] Sodium 141 135 - 150 mEq/L [facility] Potassium 4.1 3.5 - 5.0 mEq/L [facility] Chloride 104 98 - 112 mEq/L [facility] CO2 27 24 - 31 mmol/L [facility] Anion gap 10@ANIO 7 - 15 mEq/L [facility] BUN 14 7 - 18 mg/dL [facility] Creatinine 0.90 0.70 - 1.20 mg/dL [facility] Glucose 98 65 - 100 mg/dL [facility] Calcium 8.6 (L) 8.8 - 10.2 mg/dL [facility] Specimen Plasma specimen Performing Organization Address City/[facility] Phone Number [facility] [address] [place] [phone] PATHOLOGY AND GENOMIC MEDICINE [address] * Surgical pathology request (10/04/2018 1:48 PM [employer]) [facility] DEPARTMENT OF PATHOLOGY AND GENOMIC MEDICINE Surgical See link below for PDF Lab [facility] DEPARTMENT pathology Report OF PATHOLOGY report AND GENOMIC MEDICINE Result status This is Final Report for [facility] DEPARTMENT [id number] OF PATHOLOGY AND GENOMIC MEDICINE Specimen Performing Organization Address City/[facility]/[place] [address] PATHOLOGY AND GENOMIC MEDICINE * Prothrombin time with INR (10/04/2018 6:13 AM [employer]) Only the most recent of 3 results within the time period is included. [facility] Prothrombin 13.9 11.5 - 14.5 sec [facility] time [facility] INR 1.10 [facility] Comment: AUREA RICE For patients on anticoagulant DISHA therapy, reference ranges HOSPITAL below: Indication: INR Value Treatment of Venous Thrombosis, 2.0-3.0 pulmonary emboli, or prophylaxis of a venous thrombosis, or systemic emboli. High dose, high risk patients 3.0-4.5 with mechanical valves. NOTE:INR values over 3.0 are sometimes associated with gastrointestinal hemorrhage, especially values over 4.0. Specimen Blood Performing Organization Address City/State/Zipcode Phone Number [facility] DEPARTMENT OF [address] [place] [address] [address] [facility] [address] * Comprehensive metabolic panel (10/04/2018 6:13 AM [employer]) Only the most recent of 3 results within the time period is included. Sodium 141 135 - 150 mEq/L [facility] Potassium 4.2 3.5 - 5.0 mEq/L [facility] Chloride 107 98 - 112 mEq/L [facility] CO2 24 24 - 31 mmol/L [facility] Anion gap 10@ANIO 7 - 15 mEq/L [facility] BUN 12 7 - 18 mg/dL [facility] Creatinine 0.90 0.70 - 1.20 mg/dL [facility] Glucose 117 (H) 65 - 100 mg/dL [facility] Calcium 8.7 (L) 8.8 - 10.2 mg/dL [facility] Protein 6.4 6.3 - 8.3 g/dL [facility] Albumin 2.9 (L) 3.5 - 5.0 g/dL [facility] A/G ratio 0.8 0.7 - 3.8 [facility] Alkaline 58 0 - 129 U/L [facility] phosphatase [facility] AST 18 10 - 50 U/L [facility] ALT 19 5 - 50 U/L [facility] Total bilirubin 0.4 0.2 - 1.2 mg/dL [facility] Specimen Plasma specimen Performing Organization Address City/State/Zipcode Phone Number [facility] DEPARTMENT OF [address] [place] [address] [address] [facility] [address] [place], [place] [phone] [place] [address] * Gram stain (10/03/2018 6:01 PM [employer]) Only the most recent of 3 results within the time period is included. Gram stain Few WBC's [facility] result No organisms seen GNOSTICISM Comment: HOSPITAL Specimen Information Specimen Source: Urine Specimen Site: Clean catch Specimen Urine Performing Organization Address City/[facility]ode Phone Number [facility] [place] [address] PATHOLOGY AND GENOMIC MEDICINE [address] * Urine culture (10/03/2018 6:01 PM [employer]) Only the most recent of 2 results within the time period is included. [facility] Urine culture No growth after 24 hours [facility] isolate Comment: GNOSTICISM Specimen Information HOSPITAL Specimen Source: Urine Specimen Site: Clean catch Specimen Urine Performing Organization Address City/[facility] Mex[facility]ode Phone Number [facility] [place] [address] PATHOLOGY AND GENOMIC MEDICINE [address] * Urinalysis screen and microscopy, with reflex to culture (10/03/2018 5:27 PM [employer]) Only the most recent of 2 results within the time period is included. Specimen site Clean catch [facility] Color, UA Yellow [facility] Appearance, UA Clear [facility] Specific 1.008 1.001 - 1.035 GL[facility] gravity, [facility] pH, UA 7.0 5.0 - 8.5 [facility] Protein, UA Negative Negative [facility] Glucose, UA Negative Negative [facility] Ketones, UA Negative Negative [facility] Bilirubin, UA Negative Negative [facility] Blood, UA Negative Negative [facility] Nitrite, UA Negative Negative [facility] Urobilinogen, Negative <2.0 [facility] Leukocyte Large (A) Negative [facility] esterase, UA [facility] Epithelial Few /HPF [facility] cells, UA [facility] WBC, UA 76 (H) 0 - 1 /HPF [facility] RBC, UA 9 (H) 0 - 5 /HPF [facility] Bacteria, UA None seen None seen [facility] Yeast, UA Few (A) [facility] Yeast with None seen [facility] pseudohyphae, [facility] Specimen Urine Performing Organization Address City/State/Zipcode Phone Number [facility] DEPARTMENT OF [address] [place] [address] PATHOLOGY AND GENOMIC MEDICINE [place] [id number] [place], [place] [phone] [place] [address] * XR Chest 1 Vw Portable (10/03/2018 3:42 PM [employer]) Only the most recent of 3 results within the time period is included. Specimen Narrative Performed At EXAMINATION:XR CHEST 1 VW PORTABLE [facility] CLINICAL HISTORY:preop COMPARISON:July 09, 2018 IMPRESSION: Lines: None Lungs and pleura: Bibasilar subsegmental atelectasis versus scarring. No consolidations. No pleural effusion or pneumothorax. Heart and mediastinum: Stable appearance of cardiomediastinal silhouette. Bones: No suspicious osseous lesions. [id number] Procedure Note Hm Interface, Radiology Results Incoming - 10/03/2018 3:49 PM [employer] EXAMINATION: XR CHEST 1 VW PORTABLE CLINICAL HISTORY: preop COMPARISON: July 09, 2018 IMPRESSION: Lines: None Lungs and pleura: Bibasilar subsegmental atelectasis versus scarring. No consolidations. No pleural effusion or pneumothorax. Heart and mediastinum: Stable appearance of cardiomediastinal silhouette. Bones: No suspicious osseous lesions. [facility]-[id number] Performing Organization Address City/State/Zipcode Phone Number [facility] [address] [place] [address] * Partial thromboplastin time, activated (10/03/2018 3:30 PM [employer]) Only the most recent of 2 results within the time period is included. Pathologist [facility] PTT 27.5 23.0 - 36.0 sec GLADE Comment: [facility] PTT therapeutic range for [facility] unfractionated heparin is HOSPITAL 61.0-112.0 seconds which corresponds to Anti-Xa 0.3-0.7 U/ml. Note:Change in Panic Value The PTT Panic Value is changing from 110 sec. to 100 sec. due to new instrumentation and reagents. Correlation studies have been performed to validate this result. Specimen Blood Performing Organization Address City/[facility]/Zipcode Phone Number [facility] DEPARTMENT OF [address] [place], [place] [id number] PATHOLOGY AND GENOMIC MEDICINE [address] * Type and screen (10/03/2018 3:30 PM [employer]) Pathologist [facility] ABO grouping A [facility] Rh type POS [facility] Antibody screen NEG [facility] (gel) [facility] Specimen Blood Performing Organization Address City/[facility]ode Phone Number [facility] DEPARTMENT [place] [phone] PATHOLOGY AND GENOMIC MEDICINE [place] [phone] * ECG ED Preliminary Interpretation - Not an Order (10/03/2018 3:08 PM [employer]) Only the most recent of 2 results within the time period is included. Narrative Performed At Violet Newsome DO 10/04/20188:21 PM ECG ED Preliminary Interpretation - Not an Order Performed by: Violet Newsome DO Authorized by: Violet Newsome DO ECG reviewed by ED Physician in the absence of a customer service analyst: yes Interpretation: Interpretation: abnormal Rate: ECG rate:59 ECG rate assessment: bradycardic Rhythm: Rhythm: sinus bradycardia Ectopy: Ectopy: none QRS: QRS axis:Left QRS intervals:Normal Conduction: Conduction: normal ST segments: ST segments:Normal T waves: T waves: normal * MRI Lumbar Spine Wo Contrast (10/03/2018 3:08 PM [employer]) Specimen Narrative Performed At This [facility] has an attachment that is not available. [...] the lower lumbar spine without significant stenosis. [facility]-[id number] Procedure Note Hm Interface, Radiology Results - 10/03/2018 3:21 PM [employer] EXAMINATION: MRI LUMBAR SPINE WO CONTRAST CLINICAL [...] the lower lumbar spine without significant stenosis. [facility]-[id number] Performing Organization Address City/State/Zipcode Phone Number [facility] [facility] [address] [place] [address] * ECG 12 lead (10/03/2018 1:54 PM [employer]) Only the most recent of 5 results within the time period is included. Ventricular 59 [facility] MUSE rate Atrial rate 59 [facility] MUSE NH interval 164 [facility] MUSE QRSD interval 142 [...] At Performing Organization Address City/State/Zipcode Phone Number [facility] [address] [place] [address] * POC glucose (07/11/2018 11:40 AM [employer]) Only the most recent of 2 results within the time period is included. POC glucose 97 65 - 100 mg/dL [facility] Comment: AUREA RICE Meter ID: [id number] [facility] Multicraft Operator: [facility] Specimen Performing Organization Address City/State/Zipcode Phone Number [facility] DEPARTMENT OF [address] [place] [address] PATHOLOGY AND GENOMIC MEDICINE [facility] AUREA RICE [facility]1 [address] * Echocardiogram complete w contrast and 3D if needed (07/09/2018 8:57 PM [employer]) Ao Root 3.43 cm [facility] Diameter [...] i VTI 1.26 cm2/m2 [facility] BSA [place] MR Vmax 4.93 m/s [facility] BMI [...] Organization Address City/State/Zipcode Phone Number [facility] [address] [place] [address] * Arterial blood gas (07/09/2018 7:29 PM [employer]) Multicraft Operator germain owens [facility] Collection site rra [facility] O2 therapy nc [facility] pH, arterial 7.462 (H) 7.350 - 7.450 units [facility] pCO2, arterial 35.9 35.0 - 45.0 mmHg [facility] pO2, arterial 80.4 80.0 - 90.0 mmHg [facility] O2 saturation, 96.4 95.0 - 100.0 % [facility] arterial [facility] Base excess, 1.8 mEq/L [facility] arterial [facility] Bicarbonate 25.6 21.0 - 28.0 mEq/L [facility] O2 content 17.7 VOL% [facility] FiO2, inspired 28.0 % [facility] O2% [facility] Carboxyhemoglob 0.3 0.0 - 1.4 % [facility] in Comment: [facility] Reference Ranges: [facility] Carboxyhemoglobin [facility] Non smoker: 0.0 - 2.0% Smoker: 2.1 - 5.0% Heavy smoker: 5.1 - 9% Methemoglobin 1.5 (H) 0.0 - 1.0 % [facility] Hemoglobin, 13.3 (L) 14.0 - 18.0 g/dL [facility] blood gas [facility] pO2, A-a 76.7 mmHg [facility] Specimen Blood Performing Organization Address City/State/Zipcode Phone Number [facility] DEPARTMENT OF [address] [place] [address] [facility] [address] [place], [place] [id number] [place] [address] * Blood culture, aerobic & anaerobic (07/09/2018 7:03 PM [employer]) Only the most recent of 4 results within the time period is included. Pathologist [facility] Blood culture No growth after 5 days of GLADE isolate incubation. GNOSTICISM Comment: HOSPITAL Specimen Information Specimen Source: Blood Specimen Site: Peripheral Hand Left Specimen Blood Performing Organization Address City/[facility]/Zipcode Phone Number [facility] DEPARTMENT OF [address] [place] [address] PATHOLOGY AND GENOMIC MEDICINE [address] * Procalcitonin (07/09/2018 6:59 PM [employer]) Procalcitonin 19.90 (H) <=0.07 ng/mL [facility] Comment: INTERPRETIVE INFORMATION: Procalcitonin Effective February 07, 2018, this test is performed by the [employer] Work[employer] Procalcitonin assay. A correction has been applied to optimize cutoff's established for the IdeatoryHMS PCT sensitive Kryptor assay. Procalcitonin > 2.00 [...] the individual patient. Performed at: [facility] [address] [place] [address] Specimen Serum Performing Organization Address City/[facility] Phone Number [facility] [address] [place] [address] HM [facility] [address] [place] [address] * Troponin (07/09/2018 6:59 PM [employer]) Only the most recent of 4 results within the time period is included. [facility] Troponin <0.30 0.00 - 0.30 ng/mL [facility] Comment: [facility] 0.11 - 1.49 [facility] ng/[facility] indicate increased risk of acute coronary syndrome. >=1.5 ng/ml Consistent with acute myocardial infarction. The diagnostic value of a single normal or non-diagnostic result is questionable.Serial samples at 2-6 hour intervals are required to rule out acute myocardial injury. Specimen Plasma specimen Performing Organization Address City/[facility] Phone Number [facility] [place] [address] PATHOLOGY AND [facility] MEDICINE [address] * C-reactive protein (07/09/2018 6:59 PM [employer]) [facility] CRP 9.65 (H) 0.00 - 0.50 mg/dL [facility] Specimen Plasma specimen Performing Organization Address City/[facility] Phone Number [facility] [place] [address] PATHOLOGY AND [facility] MEDICINE [address] * Thyroid stimulating hormone (07/09/2018 6:59 PM [employer]) [facility] TSH 0.30 0.27 - 4.20 uIU/mL [facility] Specimen Plasma specimen Performing Organization Address [facility] Phone Number [facility] [place] [address] PATHOLOGY AND [facility] MEDICINE [address] * T4, free (07/09/2018 6:59 PM [employer]) T4, free 0.90 0.90 - 1.70 ng/dL [facility] Specimen Plasma specimen Performing Organization Address City/[facility] Phone Number [facility] DEPARTMENT OF [address] [place] [address] PATHOLOGY AND GENOMIC MEDICINE [address] * Phosphorus level (07/09/2018 6:59 PM [employer]ER) Phosphorus 2.8 2.4 - 4.5 mg/dL [facility] Specimen Plasma specimen Performing Organization Address City/[facility] Phone Number [facility] DEPARTMENT [address] [place] [address] PATHOLOGY AND GENOMIC MEDICINE [address] * B natriuretic peptide (07/09/2018 6:59 PM [employer]) Only the most recent of 2 results within the time period is included. BNP 297 (H) 0 - 100 pg/mL [facility] Specimen Blood Performing Organization Address [facility]ode Phone Number [facility] DEPARTMENT [address] [place] [address] PATHOLOGY AND GENOMIC MEDICINE [address] * Magnesium level (07/09/2018 6:59 PM [employer]KER) Magnesium 2.00 1.60 - 2.40 mg/dL [facility] Specimen Plasma specimen Performing Organization Address City/[facility] Phone Number [facility] DEPARTMENT [address] [place] [address]. [place] [address] PATHOLOGY AND GENOMIC MEDICINE [address] * Lipase level (07/09/2018 6:59 PM [employer]) Only the most recent of 2 results within the time period is included. Lipase 16 13 - 60 U/L [facility] Specimen Plasma specimen Performing Organization Address City/[facility] Phone Number [facility] DEPARTMENT OF [address] [place] [address] PATHOLOGY AND GENOMIC MEDICINE [place] [id number] [facility] [address] * Lactic acid level (07/09/2018 6:59 PM [employer]) Lactic acid 1.7 0.5 - 2.2 mmol/L [facility] Specimen Blood Performing Organization Address [facility] Phone Number [facility] DEPARTMENT OF [address] [place] [address] PATHOLOGY AND GENOMIC MEDICINE [address] * Creatine kinase, total (CPK) (07/09/2018 6:59 PM [employer]ER) Pathologist [facility] Creatine kinase 69 39 - 308 U/L [facility] Specimen Plasma specimen Performing Organization Address [facility] Phone Number [facility] DEPARTMENT OF [address] [place] [address] PATHOLOGY AND GENOMIC MEDICINE [address] * Ionized calcium (07/09/2018 6:59 PM [employer]ER) Pathologist [facility] pH 7.40 [facility] Ionized calcium 1.16 1.11 - 1.32 mmol/L [facility] Specimen Plasma specimen Performing Organization Address [facility] Phone Number [facility] DEPARTMENT OF [address] [place] [address] PATHOLOGY AND GENOMIC MEDICINE [address] * Respiratory culture (07/08/2018 5:10 PM [employer]ER) Pathologist [facility] Respiratory Normal oral richard isolated. [facility]ADE culture isolate Comment: GNOSTICISM Specimen Information HOSPITAL Specimen Source: Bronchial Washing Specimen Site: All Lobes Specimen Bronchial washing - Washing Performing Organization Address City/State/Zipcode Phone Number [facility] DEPARTMENT OF [address] [place] [address] PATHOLOGY AND GENOMIC MEDICINE [address] * CT Abdomen Pelvis W Wo Contrast (07/08/2018 10:28 AM [employer]ER) Specimen Narrative Performed At EXAMINATION:CT ABDOMEN PELVIS W WO CONTRAST HM [facility] CLINICAL HISTORY:Abnormal findings on diagnostic imaging of other parts of digestive tract, liver [id number] cm possible liver lesion TECHNIQUE: Multiple axial [...] factors High risk patients: *Greater than 20 [id number] history of smoking, or equivalent second hand [...] short axes rounded to the nearest mm. [id number] Procedure Note Hm Interface, Radiology Results [facility] - 07/08/2018 10:54 AM [employer]ER EXAMINATION: CT ABDOMEN PELVIS W WO CONTRAST [...] High risk patients: * Greater than 20 [id number] history of smoking, or equivalent second hand [...] short axes rounded to the nearest mm. [id number] Performing Organization Address City/State/Zipcode Phone Number [facility] [address] [place] [address] * Venous blood gas (07/08/2018 6:14 AM [employer]) Multicraft Operator [id number] [facility] Collection site R HAND [facility] pH, venous 7.423 (H) 7.320 - 7.420 units [facility] pCO2, venous 44.1 (L) 45.0 - 51.0 mmHg [facility] pO2, venous 59.3 (H) 25.0 - 40.0 mmHg [facility] O2 saturation, 91.3 (H) 40.0 - 70.0 % [facility] venous [facility] Base excess, 4.3 (H) -2.0 - 2.0 mEq/L [facility] venous [facility] Bicarbonate 28.8 (H) 21.0 - 28.0 mEq/L [facility] O2 content 17.1 VOL% [facility] FiO2, inspired 21.0 % [facility] O2% [facility] Carboxyhemoglob 0.9 0.0 - 1.4 % [facility] in Comment: [facility] Reference Ranges: [facility] Carboxyhemoglobin [facility] Non smoker: 0.0 - 2.0% Smoker: 2.1 - 5.0% Heavy smoker: 5.1 - 9% Methemoglobin 1.3 (H) 0.0 - 1.0 % [facility] Hemoglobin, 13.6 (L) 14.0 - 18.0 g/dL [facility] blood gas [facility] Specimen Blood Performing Organization Address City/[facility]/Zipcode Phone Number [facility] DEPARTMENT OF [address] [place] [address] PATHOLOGY AND GENOMIC MEDICINE [address] * Lactic acid level, SEPSIS - Now and repeat 2x every 3 hours (07/08/2018 3:44 AM [employer]) Only the most recent of 3 results within the time period is included. Lactic acid 1.2 0.5 - 2.2 mmol/L [facility] Specimen Blood Performing Organization Address [facility] [place] [address] PATHOLOGY AND GENOMIC MEDICINE [address] * CT Angiogram Pe Chest (07/08/2018 12:24 AM [employer]) Specimen Narrative Performed At EXAMINATION: RADIANT CT [...] are seen of left renal collecting system. [id number] Procedure Note [facility], Radiology Results Incoming - 07/08/2018 12:45 AM M[employer]ER EXAMINATION: CT ANGIOGRAM PE CHEST CLINICAL HISTORY: [...] are seen of left renal collecting system. [facility]-[id number] Performing Organization Address City/State/Zipcode Phone Number [facility] [address] [place] [address] * Sepsis Clinical Assessment (07/07/2018 9:38 PM [employer]ER) Narrative Performed At Robert Rich NP 07/08/20186:24 AM Reperfusion assessment done Sepsis Clinical Assessment Performed by: Robert Rich NP Authorized by: Robert Rich NP Sepsis Clinical Assessment General Assessment Information Current sepsis score:2 On comfort care?: No If score does not worsen, snooze alerts until:07/08/2018 09:00 [employer] SIRS Criteria Temperature > 38.3 C (101 [...] administrations. * CRITICAL CARE (07/07/2018 8:49 PM M[employer]ER) Narrative Performed At Herminio Dick MD 07/08/2018 [...] * Hepatic function panel (07/07/2018 8:38 PM M[employer]KER) Pathologist [facility] Albumin 3.2 (L) 3.5 - 5.0 g/dL [facility] Total bilirubin 0.9 0.2 - 1.2 mg/dL [facility] Bilirubin 0.2 0.0 - 0.4 mg/dL [facility] direct [facility] Alkaline 57 0 - 129 U/L [facility] phosphatase [facility] Protein 6.3 6.3 - 8.3 g/dL [facility] ALT 17 5 - 50 U/L [facility] AST 26 10 - 50 U/L [facility] Specimen Plasma specimen Performing Organization Address City/[facility] Mex[facility]ode Phone Number [facility] DEPARTMENT OF [address] [place] [address] [facility] [address] [place], [place] [address] [place] [address] * [place] Pyelogram Retrograde (02/15/2018 2:31 PM CDT) Specimen Narrative Performed At [facility]AM: [facility] Intraoperative fluoroscopy. INDICATION: Retrograde pyelogram [...] 47 seconds. 4 image(s). Performing Organization Address City/[facility]/Zipcode Phone Number [facility] [address] [place] [address] * ECG Pre/Post Op (02/10/2018 12:41 PM CDT) Ventricular 49 [facility] MUSE rate Atrial rate 49 [facility] MUSE NH interval 136 [facility] MUSE QRSD interval 130 [...] Specimen Performing Organization Address City/State/Zipcode Phone Number [facility] MUSE [address] [place] [address] * Estimated GFR (02/10/2018 12:20 PM CDT) GFR Non Af Amer 73 mL/min/1.73 m2 [facility] DEPARTMENT OF PATHOLOGY AND GENOMIC MEDICINE GFR Af Amer 89 mL/min/1.73 m2 [facility] DEPARTMENT Comment: OF PATHOLOGY Chronic kidney disease: [...] specimen Performing Organization Address City/State/Zipcode Phone Number [facility] DEPARTMENT OF [address] [place] [address] PATHOLOGY AND GENOMIC MEDICINE after 01/23/2018 Insurance Type Payer Benefit Subscriber ID Effective Phone Address Plan / Dates Group Medicare MEDICARE MEDICARE xxxxxxxxxxx 2010-P [place], PART A AND resent [place] B Commercial [employer] [place] [employer] xxxxxxxx 2017-P [place] mar[employer]ent Advance Directives Patient has advance care planning documents on file. For more information, plenancy e contact: [place] Michelle [address] [place] [address]
--- NOTE | 2019-01-24 15:27 | Operative Report ---
DATE OF PROCEDURE: 01/24/2019 SURGEON: Tarik Haynes MD PROCEDURE: Esophagogastroduodenoscopy with brushings and biopsies. INDICATIONS FOR EGD: Upper abdominal pain. MEDICATIONS: The patient was done under MAC, please see anesthesiologist's note. PROCEDURE IN DETAIL: With the patient in left lateral decubitus position, flexible fiberoptic Olympus gastroscope was introduced into the esophagus under direct visualization without any difficulty. Scattered whitish plaques were noted throughout the esophagus and those were brushed to rule out darnell esophagitis. The scope was then advanced with ease into the stomach traversing a small sliding hiatal hernia. Mucosa overlying the antrum and the body revealed some patchy erythema and low-grade edema and biopsies were obtained and sent to stain for H pylori. Pylorus was of normal contour and shape, it was intubated with ease and the scope was advanced all the way to the second portion of the duodenum. The scope was then withdrawn slowly and mucosa overlying the proximal second portion appeared to be within normal limits. There were some patchy areas of erythema noted in the duodenal bulb. The scope was then withdrawn back into the stomach and retroflexed and mucosa overlying the fundus and the cardia grossly appeared to be within normal limits. The scope was then straightened out, it was subsequently withdrawn. The patient tolerated procedure well. IMPRESSION: 1. Rule out darnell esophagitis. 2. Small sliding hiatal hernia. 3. Gastritis, biopsied, biopsies sent to stain for H pylori. 4. Duodenitis, mild. PLAN: Follow up histology. Increase omeprazole to 40 mg one p.o. a.c. b.i.d. Findings do not necessarily explain the patient's upper abdominal pain, we will need a HIDA scan with ejection fraction. Tarik Haynes MD [facility] /[id number] cc: Carlos Peña DO
[2019-01-24 15:45] VITALS: BP 146/88
== END | disposition home or self-care (01) ==
LOC: OR 08:53
PROVIDERS: ATTEND Internal Medicine Gastroenterology
DX: K29.70 Gastritis, unspecified, without bleeding (principal); K29.80 Duodenitis without bleeding; K44.9 Diaphragmatic hernia without obstruction or gangrene; I10 Essential (primary) hypertension; R00.1 Bradycardia, unspecified; F17.290 Nicotine dependence, other tobacco product, uncomplicated; Z86.73 Personal history of transient ischemic attack (TIA), and cerebral infarction without residual deficits
CPT/HCPCS: 43239; 87106; 87205; 88305; 88312; C9113; J1450; J2001; J2704; 43235

== ENCOUNTER → 2019-01-25 | Outpatient (CLI) | payer MEDICARE, OTHER ==
[~2019-01-25] MED LIST changes: -DONNATAL/LIDOCAINE/MAALOX 30 ML SUSP PO STA; -FENTANYL CITRATE/PF 100MCG/2 ML INJ ONE; -FLUCONAZOLE 200 MG/100 ML 100 ML IV ONE; -FLUCONAZOLE100 MG PO; -LIDOCAINE HCL 2% LOCAL INJ 5 ML SDV VIAL INJ ONE; -PANTOPRAZOLE 40 MG 10ML VIAL ONE; -PROPOFOL IV EMULSION 10 MG/ML 50 ML VIAL ONE
--- NOTE | 2019-01-25 19:53 | Diagnostic Imaging Report ---
Hepatobiliary Scan with Gallbladder Ejection Fraction Clinical information: Upper abdominal pain Report: Following intravenous administration of 6.9 millicuries of Tc-99m mebrofenin, dynamic images of the abdomen in the anterior projection were obtained through 42 minutes. Sincalide (CCK analog) 1.8 micrograms was administered intravenously over 30 minutes with additional imaging for determination of gallbladder ejection fraction. Perfusion to the liver is normal. Extraction of tracer from the blood pool by the liver parenchyma is normal. Tracer is seen promptly within the biliary tract. The gallbladder begins to fill by 5 minutes post-injection of tracer and fills adequately. Tracer is seen in the small bowel by 22 minutes. The gallbladder ejection fraction with administration of sincalide is 77% (normal greater than 40%). Impression: 1. Filling of the gallbladder excludes the diagnosis of acute cystic duct obstruction/acute cholecystitis. 2. Normal gallbladder ejection fraction of 77% does not support the clinical diagnosis of chronic cholecystitis/gallbladder dyskinesia. Signed by: Dr. Marsha Hawthorne M.D. on 01/25/2019 7:49 PM
== END ==
LOC: NM 12:00
PROVIDERS: ATTEND Family Medicine
DX: R10.10 Upper abdominal pain, unspecified (principal)
CPT/HCPCS: 78227; A9537

== ENCOUNTER → 2019-02-01 | Day surgery (SDC) | payer MEDICARE, OTHER ==
[~2019-02-01] MED LIST changes: +B&O 60MG R/S 60 MG SUPP PR ONE; +EPHEDRINE SULFATE INJ 50 MG/10 ML SYR ONE; +FENTANYL CITRATE/PF 100MCG/2 ML INJ ONE; +FLUCONAZOLE100 MG PO; +GENTAMICIN 80MG/NS 100 ML 100 ML IV ONE; +GLYCOPYRROLATE INJ 1MG/ 5 ML SYR ONE; +IOPAMIDOL 610MG/1ML 300 MG/ML VIAL IV ONE; +KETOROLAC TROMETHAMINE 30 MG/ML VIAL ONE; +LIDOCAINE HCL 2% LOCAL INJ 5 ML SDV VIAL INJ ONE; +MEROPENEM 1GM 1 GM/100 ML BAG IV ONE; +MIDAZOLAM HCL 2 MG/2 ML VIAL ONE; +MORPHINE SULFATE INJ 4 MG/ML INJ 1ML ONE; +NEOSTIGMINE 5 MG/5ML SYR ONE; +POTASSIUM CITR10 MEQ PO; +PROPOFOL IV EMULSION 10 MG/ML 20 ML VIAL ONE; +ROCURONIUM BROMIDE 10 MG/ML 5ML VIAL ONE; +SEVOFLURANE INHAL SOLN 250 ML PEN BTL ONE; +VITAMIN B-121000 MCG PO; +VITAMIN B-650 MG PO
[2019-02-01 13:45] VITALS: BP 145/90
--- NOTE | 2019-03-10 00:32 | Operative Report ---
DATE OF PROCEDURE: 02/01/2019 SURGEON: Jaya Nicolas MD PREOPERATIVE DIAGNOSES: 1. Left nephrolithiasis. 2. Foreign body (left indwelling ureteral stent). POSTOPERATIVE DIAGNOSES: 1. Left nephrolithiasis. 2. Foreign body (left indwelling ureteral stent). OPERATION PERFORMED: 1. Cystourethroscopy with bilateral ureteral catheterization and retrograde ureteropyelography. 2. Left ureteroscopy with stone fragmentation and extraction. 3. Radiological Services for supervision and interpretation of ureteroscopy. 4. Interpretation of retrograde ureteropyelography. 5. Cystourethroscopy with removal of left indwelling ureteral stent (separate procedure performed for the diagnosis of stent). ANESTHESIA: General. COMPLICATIONS: None. CLINICAL SUMMARY: Jose Garcia is a 73-year-old man with an indwelling ureteral stent for an obstructing stone. He was brought for the above procedures. He is aware of the risks of bleeding, infection, injury to adjacent structures, need for additional procedures, and elected to proceed. The patient has a very complicated urological history. Please refer to the voluminous chart in the hospital. OPERATIVE PROCEDURE IN DETAIL: Informed consent was verified. Jose Garcia was properly identified, taken to the operating room, placed on the cystoscopy table in supine position. Anesthesia was uneventfully begun. The patient was then carefully and gently repositioned in dorsal lithotomy position with all pressure points well padded. His genitalia were prepared and draped in usual sterile fashion. The cystoscope sheath with visual obturator in place was atraumatically inserted into the patient's urethra. It was guided down the urethra, where at the mid shaft, there was a false channel posteriorly. We then proceeded down the proper channel, went through the normal sphincteric region and through the prostate bed, which was significant for relatively open prostate bed, status post transurethral resection of the prostate. We went to the patient's bladder and drained it. Panendoscopy revealed an unusual erosion at the dome of the bladder. There was also calcification at the right lateral lobe of the prostate. The stent was emerging from the left ureteral orifice. A guidewire was then placed alongside the stent and guided to the level of the patient's kidney. The stent was then grasped, completely removed, and discarded. Ureteroscope was then placed over the guidewire and guided to the patient's kidney. Once the safety wire was utilized as well, the Nitinol tipless basket was then utilized to grasp this stone. It was crushed within the basket into smaller stones. We then removed the stone fragment under direct vision utilizing the basket that we used to crush the stone. We then utilized a secondary guidewire to be introduced the ureteroscope, grasped another stone fragment. This procedure was repeated several times until all significantly sized stone fragments were removed. Only very fine sand remained. 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 The ureter was unremarkable upon exiting. The patient's bladder was drained. Cystoscope was withdrawn. A belladonna and opium suppository were placed revealing a 40 g prostate, that is smooth and nonfluctuant without any nodules, but had a diffusely firm to palpation. The patient was then uneventfully reversed from anesthesia and taken to recovery room in stable condition. There were no complications to the procedure. He tolerated the procedure well. We will follow the patient up as well as for his various urological problems as well as for the erosion that was noted at the dome of the bladder. MD ARSALAN White/PAWAN /[id number]
== END | disposition home or self-care (01) ==
LOC: OR 09:10
PROVIDERS: ATTEND Urology
DX: N20.0 Calculus of kidney (principal); Z46.6 Encounter for fitting and adjustment of urinary device; N32.89 Other specified disorders of bladder; N42.89 Other specified disorders of prostate; N36.5 Urethral false passage; N28.89 Other specified disorders of kidney and ureter; I10 Essential (primary) hypertension; I45.10 Unspecified right bundle-branch block; Z86.73 Personal history of transient ischemic attack (TIA), and cerebral infarction without residual deficits
CPT/HCPCS: 52352; 74420; 88300; C1758; C1766; C2617; J1580; J1885; J2001; J2185; J2250; J2270; J2704; J3490; Q9967; J3010

== ENCOUNTER 2019-02-03 13:00 | Outpatient (RCR) | payer MEDICARE, OTHER ==
[~2019-02-03 13:00] MED LIST changes: -B&O 60MG R/S 60 MG SUPP PR ONE; -EPHEDRINE SULFATE INJ 50 MG/10 ML SYR ONE; -FENTANYL CITRATE/PF 100MCG/2 ML INJ ONE; -GENTAMICIN 80MG/NS 100 ML 100 ML IV ONE; -GLYCOPYRROLATE INJ 1MG/ 5 ML SYR ONE; -IOPAMIDOL 610MG/1ML 300 MG/ML VIAL IV ONE; -KETOROLAC TROMETHAMINE 30 MG/ML VIAL ONE; -LIDOCAINE HCL 2% LOCAL INJ 5 ML SDV VIAL INJ ONE; -MEROPENEM 1GM 1 GM/100 ML BAG IV ONE; -MIDAZOLAM HCL 2 MG/2 ML VIAL ONE; -MORPHINE SULFATE INJ 4 MG/ML INJ 1ML ONE; -NEOSTIGMINE 5 MG/5ML SYR ONE; -POTASSIUM CITR10 MEQ PO; -PROPOFOL IV EMULSION 10 MG/ML 20 ML VIAL ONE; -ROCURONIUM BROMIDE 10 MG/ML 5ML VIAL ONE; -SEVOFLURANE INHAL SOLN 250 ML PEN BTL ONE; -VITAMIN B-121000 MCG PO; -VITAMIN B-650 MG PO
[2019-03-29] MEDS ORDERED: POTASSIUM CITR10 MEQ PO (11:36)
[2019-03-29] MEDS ORDERED: VITAMIN B-121000 MCG PO (11:36)
[2019-03-29] MEDS ORDERED: VITAMIN B-650 MG PO (11:36)
== END 2019-02-05 ==
LOC: PT 13:00
PROVIDERS: ATTEND Internal Medicine Infectious Disease
DX: M46.28 Osteomyelitis of vertebra, sacral and sacrococcygeal region (principal); M53.2X8 Spinal instabilities, sacral and sacrococcygeal region; M53.3 Sacrococcygeal disorders, not elsewhere classified; M62.81 Muscle weakness (generalized); R26.2 Difficulty in walking, not elsewhere classified
CPT/HCPCS: 97139

== ENCOUNTER 2019-02-20 10:58 | Outpatient (RCR) | payer MEDICARE, OTHER ==
[2019-03-29] MEDS ORDERED: VITAMIN B-121000 MCG PO (11:36)
[2019-03-29] MEDS ORDERED: POTASSIUM CITR10 MEQ PO (11:36)
[2019-03-29] MEDS ORDERED: VITAMIN B-650 MG PO (11:36)
== END 2019-03-08 ==
LOC: PT 10:58
PROVIDERS: ATTEND Internal Medicine Infectious Disease
DX: M46.28 Osteomyelitis of vertebra, sacral and sacrococcygeal region (principal); M62.81 Muscle weakness (generalized); R26.2 Difficulty in walking, not elsewhere classified
CPT/HCPCS: 97139

== ENCOUNTER → 2019-03-31 | Day surgery (SDC) | payer MEDICARE, OTHER ==
[2019-03-29 12:26] LABS: BASOPHILS % 0.6 % (0.0-1.0); EOSINOPHILS # (AUTO) 0.1 (0.0-0.4); LYMPHOCYTES # (AUTO) 1.6 (1.0-3.2); LYMPHOCYTES % 47.6 % (18.0-39.1); MEAN CORPUSCULAR HEMOGLOBIN 29.7 pg (28-32); MEAN CORPUSCULAR HGB CONC 32.6 g/dL (31-35); MEAN CORPUSCULAR VOLUME 91.1 fL (81-99); MONOCYTES # (AUTO) 0.4 (0.2-0.8); NEUTROPHILS # (AUTO) 1.2 (2.1-6.9); NEUTROPHILS % 36.2 % (38.7-80.0); PLATELET COUNT 209 x10e3/uL (140-360); RED BLOOD COUNT 4.72 x10e6/uL (4.3-5.7); RED CELL DISTRIBUTION WIDTH 12.7 % (11.7-14.4)
[2019-03-29 12:45] LABS: ANION GAP 14.2 mmol/L (8-16); BLOOD UREA NITROGEN 9 mg/dL (7-26); BUN/CREATININE RATIO 9 (6-25); CALCIUM 9.8 mg/dL (8.4-10.2); CARBON DIOXIDE 26 mmol/L (22-29); CHLORIDE 102 mmol/L (98-107); CREATININE, SERUM 0.97 mg/dL (0.72-1.25); EST GLOMERULAR FILTRATION RATE > 60 ML/MIN (60-); GLUCOSE 95 mg/dL (74-118); POTASSIUM 4.2 mmol/L (3.5-5.1); SODIUM 138 mmol/L (136-145)
--- NOTE | 2019-03-29 12:47 | Diagnostic Imaging Report ---
Chest, 2 views, 03/29/2019. History: Preop, bladder cancer. Comparison: None available. Findings: The cardiomediastinal silhouette and pulmonary vasculature are within normal limits. The lungs are clear without evidence of consolidation or pleural effusion. Mild degenerative changes are present in the thoracic spine. There are no acute osseous or soft tissue abnormalities. Impression: No acute cardiopulmonary abnormality. Signed by: Toby Lomas on 03/29/2019 12:43 PM
[~2019-03-31] MED LIST changes: +B&O 60MG R/S 60 MG SUPP PR ONE; +DEXAMETHASONE SOD PHOS INJ 4 MG/ML VIAL ONE; +FENTANYL CITRATE/PF 100MCG/2 ML INJ ONE; +IOPAMIDOL 610MG/1ML 300 MG/ML VIAL IV ONE; +LIDOCAINE HCL 2% LOCAL INJ 5 ML SDV VIAL INJ ONE; +MEROPENEM 1GM 100 ML IV ONE; +MIDAZOLAM HCL 2 MG/2 ML VIAL ONE; +ONDANSETRON HCL INJ 2MG/ML 2ML 2 MG/ML VIAL ONE; +POTASSIUM CITR10 MEQ PO; +PROPOFOL IV EMULSION 10 MG/ML 20 ML VIAL ONE; +VITAMIN B-121000 MCG PO; +VITAMIN B-650 MG PO
--- OUTSIDE RECORDS SUMMARY | 2019-03-31 06:10 | XMS REPORT | Continuity of Care Document ---
Author [facility] Address Unknown Phone Unavailable Care Team Providers Care Med Care Manager Name Role Phone [facility] Information Exchange Unavailable Unavailable Problems Problem Status Onset Date Classification Date Reported Comments Source MENISCUS TEAR Active 07/05/2017 [facility] Acute prostatitis (disorder) Active Problem 07/11/2017 [facility] Anxiety (finding) Active Problem 07/11/2017 [facility] Benign prostatic hyperplasia (disorder) Active Problem 07/11/2017 [facility] Gastroesophageal reflux disease (disorder) Active Problem 07/11/2017 Occassionally [facility] Hypercholesterolemia (disorder) Active Problem 07/11/2017 [facility] Hypertensive disorder, systemic arterial (disorder) Active Problem 07/11/2017 HTN per Surgeon H & P; pt denies HTN, states "was put on the medication because of previous stroke." [facility] Kidney stone (disorder) Resolved Problem 07/11/2017 had a cystoscopy to remove. [facility] Cerebrovascular accident (disorder) Resolved Problem 07/11/2017 ~ 10 years ago; states no residual effects. [facility] COMPLEX TEAR OF MEDIAL MENSC, CURRENT IN Active [facility] UNILATERAL PRIMARY OSTEOARTHRITIS, LEFT Active [facility] Medications Medication Details Route Status Patient Instructions Ordering Provider Order Date Source Levofloxacin (Levaquin) 500 Mg Tablet, 500 Mg Oral Daily Active 12/08/2018 [facility] Losartan , Oral Daily Active 07/04/2018 [facility] Amitriptyline Hcl 25 Mg Tablet, 25 Mg Oral Bedtime Active 09/07/2017 [facility] Ciprofloxacin Hcl (Cipro) 500 Mg Tablet, 500 Mg Oral Twice A Day Active 09/07/2017 [facility] Keflex , Unknown Active 09/07/2017 [facility] Phenazopyridine Hcl 200 Mg Tablet, 200 Mg Oral Every 8 Hours Active 09/07/2017 [facility] Potassium Chloride 10 Meq Tablet.er, 10 Meq Oral Daily Active 09/07/2017 [facility] Tizanidine Hcl (Zanaflex) 4 Mg Capsule, 4 Mg Oral Bedtime Active 09/07/2017 [facility] Triamterene/Hydrochlorothiazid (Triamterene-Hctz 75-50 Mg Tab) 1 Each Tablet, 1 Tab Oral Every Morning Active 09/07/2017 [facility] Tramadol 50 mg, 1 tab, Route: PO, Drug form: TAB, Q6H, Dosing Weight 85.455, kg, PRN Pain Score 1-3, Start date: 07/08/17 14:18:00 CHAR PULLER, Duration: 30 day, Stop date: 08/07/17 14:17:00 CSTNotes: Not to exceed 4 00mg/day. (Same As: Ultram) No Longer Active 07/08/[facility] Morphine 2 mg, 0.2 mL, Route: IVP, Drug form: INJ, Q3H, Dosing Weight 85.455, kg, PRN Pain Score 1-3, Start date: 07/08/17 14:18:00 CHAR PULLER, Duration: 30 day, Stop date: 08/07/17 14:17:00 CSTNotes: (Same as:MORPhine Sulfate) No Longer Active 07/08/2017 [facility] Hydromorphone 0.3 mg, 0.15 mL, Route: IVP, Drug form: INJ, Q3H, Dosing Weight 85.455, kg, PRN Pain Score 4-6, Start date: 07/08/17 14:18:00 CHAR PULLER, Duration: 30 day, Stop date: 08/07/17 14:17:00 CSTNotes: Same as Dilaudid No Longer Active 07/08/2017 [facility] Acetaminophen 325 MG / Hydrocodone Bitartrate 10 MG Oral Tablet 1 tab, Route: PO, Drug Form: TAB, Dosing Weight 85.455, kg, Q4H, PRN Pain Score 4-6, Start date: 07/08/17 14:18:00 CHAR PULLER, Duration: 30 day, Stop date: 08/07/17 14:17:00 CSTNotes: Do not exceed 4gm/day of acetaminophen. (Same as: [place] 325/10) No Longer Active 07/08/2017 [facility] Ancef 2 gm, Route: IVP, Drug form: PDR/INJ, ONCE, Dosing Weight 85.455, kg, Start date: 07/08/17 12:46:00 CHAR PULLER, Stop date: 07/08/17 12:46:00 CHAR PULLER, Surgical Prophylaxis Only; For patients Notes: (Same As: Ancef, Kefzol) MEDICATION WASTE Product Size: 1000 mg Product Wasted: ___ mg Inactive 07/08/2017 [facility] Lactated Ringers IV 1,000 mL 1,000 mL, Rate: 40 ml/hr, Infuse over: 25 hr, Route: IV, Dosing Weight 85.455 kg, Total Volume: 1,000, Start date: 07/08/17 12:46:00 CHAR PULLER, Duration: 30 day, Stop date: 08/07/17 12:45:00 CHAR PULLER, 2.03, m2 No Longer Active 07/08/2017 Orth[facility] [...] PRN Elevated BP, Start date: 07/08/17 12:09:00 CHAR PULLER, Duration: 2 doses or times, Stop date: Limited # of timesNotes: (Same as: Apresoline) Push over 5 minutes Inactive 07/08/2017 [facility] Labetalol 10 mg, 2 mL, Route: IVP, Drug form: INJ, Q5Min, Dosing Weight 85.455, kg, PRN Elevated BP, Start date: 07/08/17 12:09:00 CHAR PULLER, Duration: 5 doses or times, Stop date: Limited # of times Inactive 07/08/2017 [facility] Hydromorphone 0.5 mg, 0.25 mL, Route: IVP, Drug form: INJ, Q5Min, Dosing Weight 85.455, kg, PRN Pain Score 7-10, Start date: 07/08/17 12:09:00 CHAR PULLER, Duration: 4 doses or times, Stop date: [...] Levofloxacin (Levaquin) 500 Mg Tablet Daily Active [facility] Losartan Potassium 50 Mg Tablet Daily Active [facility] Simvastatin 40 Mg Tablet Daily Active [facility] Tamsulosin Hcl (Flomax*) 0.4 Mg Cap Bedtime Active [facility] Trazodone Hcl 50 Mg Tablet Bedtime Active [facility] Atorvastatin Calcium 20 Mg Tablet Bedtime Active [facility] Carbinoxamine Maleate 4 Mg Tablet Every 8 Hours as needed for Allergy Active [facility] Oxycodone Hcl 20 Mg Tablet Twice A Day as needed for Moderate Pain (4-6) Active [facility] Prednisone 10 Mg Tab Daily Active [facility] Allergies, Adverse Reactions, Alerts No Known Medication Allergies Immunizations No Data Provided for This Section Results Order Name Results Value Reference Range Date Interpretation Comments Source Blood leukocytes automated count (number/volume) 13.01 4.8 - 10.8 12/12/2018 [facility] Blood erythrocytes automated count (number/volume) 4.44 4.3 - 5.7 12/12/2018 [facility] Blood hemoglobin measurement (moles/volume) 13.0 14.0 - 18.0 12/12/2018 [facility] Automated blood hematocrit (volume fraction) 38.5 38.2 - 49.6 12/12/2018 [facility] Automated erythrocyte mean corpuscular volume 86.7 81 - 99 12/12/2018 [facility] Automated erythrocyte mean corpuscular hemoglobin (mass per erythrocyte) 29.3 28 - 32 12/12/2018 [facility] Automated erythrocyte mean corpuscular hemoglobin concentration measurement (mass/volume) 33.8 31 - 35 12/12/2018 [facility] RDW BldCo-Rto 13.9 11.7 - 14.4 12/12/2018 [facility] Automated blood platelet count (count/volume) 182 140 - 360 12/12/2018 [facility] Automated blood segmented neutrophil count as percentage of total leukocytes 69.4 38.7 - 80.0 12/12/2018 [facility] Automated blood lymphocyte count as percentage ot total leukocytes 21.1 18.0 - 39.1 12/12/2018 [facility] Automated blood monocyte count as percentage of total leukocytes 6.8 4.4 - 11.3 12/12/2018 [facility] Automated blood eosinophil count as percentage of total leukocytes 0.5 0.0 - 6.0 12/12/2018 [facility] Automated blood basophil count as percentage of total leukocytes 0.2 0.0 - 1.0 12/12/2018 [facility] IM GRANULOCYTES % 2.0 0.0 - 1.0 12/12/2018 [facility] Automated blood neutrophil count 9.0 2.1 - 6.9 12/12/2018 [facility] Blood lymphocytes count (number/volume) 2.7 1.0 - 3.2 12/12/2018 [facility] Blood monocytes automated count (number/volume) 0.9 0.2 - 0.8 12/12/2018 [facility] Automated blood eosinophil count 0.1 0.0 - 0.4 12/12/2018 [facility] Automated blood basophil count (count/volume) 0.0 0.0 - 0.1 12/12/2018 [facility] Absolute Immature Granulocyte (auto 0.26 0 - 0.1 12/12/2018 [facility] Serum or plasma sodium measurement (moles/volume) 137 136 - 145 12/12/2018 [facility] Serum or plasma potassium measurement (moles/volume) 4.2 3.5 - 5.1 12/12/2018 [facility] Serum or plasma chloride measurement (moles/volume) 103 98 - 107 12/12/2018 [facility] Serum or plasma carbon dioxide, total measurement (moles/volume) 28 22 - 29 12/12/2018 [facility] Serum or plasma anion gap 10.2 8 - 16 12/12/2018 [facility] Serum or plasma urea nitrogen measurement (mass/volume) 18 7 - 26 12/12/2018 [facility] Serum or plasma creatinine measurement (mass/volume) 0.83 0.72 - 1.25 12/12/2018 [facility] Serum or plasma urea nitrogen/creatinine mass ratio 22 6 - 25 12/12/2018 [facility] Estimated glomerular filtration rate (GFR) determination > 60 60 12/12/2018 [facility] Glucose measurement 77 74 - 118 12/12/2018 [facility] Serum or plasma calcium measurement (mass/volume) 9.6 8.4 - 10.2 12/12/2018 [facility] Procalcitonin (PCT) level 0.07 0.00 - 0.08 12/09/2018 [facility] Serum or plasma cyclic citrullinated peptide IgA+IgG antibody assay by immunoassay (units/volume) 4 0 - 19 12/09/2018 [facility] Serum or plasma rheumatoid factor measurement (units/volume) 10.7 0.0 - 13.9 12/09/2018 [facility] Erythrocyte sedimentation rate by Westergren method 23 0 - 13 12/08/2018 [facility] Serum or plasma C reactive protein measurement (mass/volume) 15.0 0.0 - 4.9 12/08/2018 [facility] Serum or plasma magnesium measurement (mass/volume) 2.0 1.3 - 2.1 10/31/2018 [facility] BNP Bld-mCnc 41.0 0 - 100 10/31/2018 [facility] Serum or plasma trough vancomycin level at trough (mass/volume) 13.2 5.0 - 10.0 10/27/2018 [facility] Prothrombin time (PT) in platelet poor plasma by coagulation assay 13.8 11.9 - 14.5 10/26/2018 [facility] INR in Platelet poor plasma by Coagulation assay 1.01 10/26/2018 [facility] Activated partial thromboplastin time (aPTT) in platelet poor plasma bycoagulation assay 32.6 23.8 - 35.5 10/26/2018 [facility] Serum or plasma total bilirubin measurement (mass/volume) 0.5 0.2 - 1.2 10/25/2018 [facility] Aspartate Amino Transf (AST/SGOT) 13 5 - 34 10/25/2018 [facility] Serum or plasma alanine aminotransferase measurement (enzymatic activity/volume) 14 0 - 55 10/25/2018 [facility] Serum or plasma protein measurement (mass/volume) 7.3 6.5 - 8.1 10/25/2018 [facility] Serum or plasma albumin measurement (mass/volume) 3.2 3.5 - 5.0 10/25/2018 [facility] Plasma globulin measurement (mass/volume) 4.1 2.3 - 3.5 10/25/2018 [facility] Serum or plasma albumin/globulin mass ratio 0.8 0.8 - 2.0 10/25/2018 [facility] Serum or plasma alkaline phosphatase measurement (enzymatic activity/volume) 65 40 - 150 10/25/2018 [facility] Urine color determination YELLOW YELLOW 10/25/2018 [facility] Urine clarity SL CLOUDY CLEAR 10/25/2018 [facility] Specific gravity of Urine by Test strip 1.030 1.010 - 1.025 10/25/2018 [facility] Urine pH measurement by automated test strip 6 5 - 7 10/25/2018 [facility] Urine leukocyte esterase detection by dipstick TRACE NEGATIVE 10/25/2018 [facility] Urine nitrite detection NEGATIVE NEGATIVE 10/25/2018 [facility] Urine protein measurement by test strip (mass/volume) 1+ NEGATIVE 10/25/2018 [facility] Urine glucose detection NEGATIVE NEGATIVE 10/25/2018 [facility] Urine ketones detection by automated test strip NEGATIVE NEGATIVE 10/25/2018 [facility] Urine urobilinogen measurement by test strip (mass/volume) 0.2 0.2 - 1 10/25/2018 [facility] Urine total bilirubin measurement (mass/volume) NEGATIVE NEGATIVE 10/25/2018 [facility] Urine erythrocytes detection 4+ NEGATIVE 10/25/2018 [facility] Automated urine sediment leukocyte count by microscopy (number/high power field) 0-5 0 - 5 10/25/2018 [facility] Erythrocytes detection in urine sediment by light microscopy 11-20 0 - 5 10/25/2018 [facility] Bacteria detection in urine sediment by light microscopy MODERATE NONE 10/25/2018 [facility] Epithelial cells detection in urine sediment by light microscopy NONE NONE 10/25/2018 [facility] Blood leukocytes automated count (number/volume) 13.84 4.8 - 10.8 07/07/2018 [facility] Blood erythrocytes automated count (number/volume) 4.74 4.3 - 5.7 07/07/2018 [facility] Blood hemoglobin measurement (moles/volume) 14.4 14.0 - 18.0 07/07/2018 [facility] Automated blood hematocrit (volume fraction) 42.4 38.2 - 49.6 07/07/2018 [facility] Automated erythrocyte mean corpuscular volume 89.5 81 - 99 07/07/2018 [facility] Automated erythrocyte mean corpuscular hemoglobin (mass per erythrocyte) 30.4 28 - 32 07/07/2018 [facility] Automated erythrocyte mean corpuscular hemoglobin concentration measurement (mass/volume) 34.0 31 - 35 07/07/2018 [facility] RDW BldCo-Rto 12.9 11.7 - 14.4 07/07/2018 [facility] Automated blood platelet count (count/volume) 218 140 - 360 07/07/2018 [facility] Automated blood segmented neutrophil count as percentage of total leukocytes 84.7 38.7 - 80.0 07/07/2018 [facility] Automated blood lymphocyte count as percentage ot total leukocytes 10.0 18.0 - 39.1 07/07/2018 [facility] Automated blood monocyte count as percentage of total leukocytes 4.4 4.4 - 11.3 07/07/2018 [facility] Automated blood eosinophil count as percentage of total leukocytes 0.1 0.0 - 6.0 07/07/2018 [facility] Automated blood basophil count as percentage of total leukocytes 0.1 0.0 - 1.0 07/07/2018 [facility] IM GRANULOCYTES % 0.7 0.0 - 1.0 07/07/2018 [facility] Automated blood neutrophil count 11.7 2.1 - 6.9 07/07/2018 [facility] Blood lymphocytes count (number/volume) 1.4 1.0 - 3.2 07/07/2018 [facility] Blood monocytes automated count (number/volume) 0.6 0.2 - 0.8 07/07/2018 [facility] Automated blood eosinophil count 0.0 0.0 - 0.4 07/07/2018 [facility] Automated blood basophil count (count/volume) 0.0 0.0 - 0.1 07/07/2018 [facility] Absolute Immature Granulocyte (auto 0.09 0 - 0.1 07/07/2018 [facility] Serum or plasma sodium measurement (moles/volume) 135 136 - 145 07/07/2018 [facility] Serum or plasma potassium measurement (moles/volume) 4.4 3.5 - 5.1 07/07/2018 [facility] Serum or plasma chloride measurement (moles/volume) 100 98 - 107 07/07/2018 [facility] Serum or plasma carbon dioxide, total measurement (moles/volume) 26 22 - 29 07/07/2018 [facility] Serum or plasma anion gap 13.4 8 - 16 07/07/2018 [facility] Serum or plasma urea nitrogen measurement (mass/volume) 14 7 - 26 07/07/2018 [facility] Serum or plasma creatinine measurement (mass/volume) 0.97 0.72 - 1.25 07/07/2018 [facility] Serum or plasma urea nitrogen/creatinine mass ratio 14 6 - 25 07/07/2018 [facility] Estimated glomerular filtration rate (GFR) determination > 60 60 07/07/2018 [facility] Glucose measurement 123 74 - 118 07/07/2018 [facility] Serum or plasma calcium measurement (mass/volume) 9.1 8.4 - 10.2 07/07/2018 [facility] Differential Total Cells Counted 100 07/04/2018 [facility] Manual blood neutrophils/100 leukocytes 48 40 - 74 07/04/2018 [facility] Manual blood lymphocytes/100 leukocytes 33 19 - 48 07/04/2018 [facility] Manual blood monocytes/100 leukocytes 9 3.4 - 9.0 07/04/2018 [facility] Manual blood eosinophil count as percentage of total leukocytes 2 0 - 7 07/04/2018 [facility] Manual blood metamyelocytes/100 leukocytes 2 0 - 0 07/04/2018 [facility] Manual blood myelocytes/100 leukocytes 1 0 - 0 07/04/2018 [facility] Blood lymphocytes variant count (number/volume) 5 07/04/2018 [facility] Blood platelets count by estimate (number/volume) ADEQUATE 07/04/2018 [facility] Platelet morphology NORMAL 07/04/2018 [facility] Blood anisocytosis detection by light microscopy SLIGHT 07/04/2018 [facility] RBC morphology NORMAL 07/04/2018 [facility] Prothrombin time (PT) in platelet poor plasma by coagulation assay 13.6 11.9 - 14.5 07/04/2018 [facility] INR in Platelet poor plasma by Coagulation assay 0.95 07/04/2018 [facility] Differential Total Cells Counted 100 07/04/2018 [facility] Manual blood neutrophils/100 leukocytes 48 40 - 74 07/04/2018 [facility] Manual blood lymphocytes/100 leukocytes 33 19 - 48 07/04/2018 [facility] Manual blood monocytes/100 leukocytes 9 3.4 - 9.0 07/04/2018 [facility] Manual blood eosinophil count as percentage of total leukocytes 2 0 - 7 07/04/2018 [facility] Manual blood metamyelocytes/100 leukocytes 2 0 - 0 07/04/2018 [facility] Manual blood myelocytes/100 leukocytes 1 0 - 0 07/04/2018 [facility] Blood lymphocytes variant count (number/volume) 5 07/04/2018 [facility] Blood platelets count by estimate (number/volume) ADEQUATE 07/04/2018 [facility] Platelet morphology NORMAL 07/04/2018 [facility] Blood anisocytosis detection by light microscopy SLIGHT 07/04/2018 [facility] RBC morphology NORMAL 07/04/2018 [facility] ELECTROLYTES AGAP 10.5 10.0 - 20.0 07/06/2017 [facility] ELECTROLYTES eGFR 75 07/06/2017 Result Comment: The eGFR is calculated [...] [facility] ELECTROLYTES Calcium Lvl 8.8 8.5 - 10.5 07/06/2017 [facility] ELECTROLYTES Chloride Lvl 106 95 - 109 07/06/2017 [facility] ELECTROLYTES Potassium Lvl 4.5 3.5 - 5.1 07/06/2017 [facility] ELECTROLYTES CO2 28 24 - 32 07/06/2017 [facility] ELECTROLYTES Sodium Lvl 140 135 - 145 07/06/2017 [facility] ELECTROLYTES BUN 13 7 - 22 07/06/2017 [facility] ELECTROLYTES Glucose Lvl 91 70 - 99 07/06/2017 [facility] ELECTROLYTES Creatinine Lvl 1.00 0.50 - 1.40 07/06/2017 [facility] HEMATOLOGY Eosinophils # 0.2 0.0 - 0.5 07/06/2017 [facility] HEMATOLOGY Lymphocytes # 1.9 1.0 - 5.5 07/06/2017 [facility] HEMATOLOGY Monocytes # 0.4 0.0 - 0.8 07/06/2017 [facility] HEMATOLOGY Segs-Bands # 1.1 1.5 - 8.1 07/06/2017 [facility] HEMATOLOGY Monocytes 11.0 2.0 - 12.0 07/06/2017 [facility] HEMATOLOGY Basophils 0.6 0.0 - 1.0 07/06/2017 [facility] HEMATOLOGY Lymphocytes 52.2 20.0 - 40.0 07/06/2017 [facility] HEMATOLOGY Segs 29.6 45.0 - 75.0 07/06/2017 [facility] HEMATOLOGY Eosinophils 6.6 0.0 - 4.0 07/06/2017 [facility] HEMATOLOGY MPV 8.5 7.4 - 10.4 07/06/2017 [facility] HEMATOLOGY RDW 13.9 11.5 - 14.5 07/06/2017 [facility] HEMATOLOGY Platelet 219 133 - 450 07/06/2017 [facility] HEMATOLOGY MCH 29.6 27.0 - 31.0 07/06/2017 [facility] HEMATOLOGY MCHC 33.4 32.0 - 36.0 07/06/2017 [facility] HEMATOLOGY Hgb 15.7 14.0 - 18.0 07/06/2017 [facility] HEMATOLOGY Hct 47.1 42.0 - 54.0 07/06/2017 [facility] HEMATOLOGY MCV 88.6 80.0 - 94.0 07/06/2017 [facility] HEMATOLOGY RBC 5.32 4.70 - 6.10 07/06/2017 [facility] HEMATOLOGY WBC 3.7 3.7 - 10.4 07/06/2017 [facility] Bacterial urine culture Urine Culture [facility] Pathology Reports No Data Provided for This Section Diagnostic Reports Report Value Date Source Ext Lower limited non vascular US Clinical [...] of concern in the right buttock. SL: ITH-M 10/21/2018 [facility] Consultation Notes No Data Provided for This Section Discharge Summaries No Data Provided for This Section History and Physicals No Data Provided for This Section Vital Signs Vital Sign Value Date Comments [...] Provider ADM Date DC Date Status Source [facility] [id number] Ayo Jude 07/08/2017 07/09/2017 [facility] Discharged Inpatient (obs) [id number] BINH SETH MD 07/06/2018 07/07/2018 [facility] [id number] KRISTA ROPER DO 08/18/2018 [facility] [id number] BINH SETH MD 09/30/2018 [facility] Discharged Inpatient [id number] INO SCHAFER MD 10/25/2018 10/31/2018 [facility] Discharged Recurring [id number] ZOIE DAI MD 11/29/2018 12/06/2018 [facility] Discharged Inpatient [id number] AGUEDA ENRIQUEZ MD 12/08/2018 12/13/2018 [facility] Procedures Procedure Code Date Perfomer Comments Source Magnetic resonance imaging of cervical spine without then with contrast [id number] [facility] [facility] imaging of lumbar spine without then with contrast [id number] 10/27/2018 [facility] Magnetic resonance imaging of thoracic spine without then with contrast [id number] 10/27/2018 [facility] INSERTION OF INFUSION DEV INTO SUP VENA CAVA, PERC APPROACH [id number] [facility]/26[facility] extremity lower wo then w contrast [id number] 10/25/[address] [facility] Computed tomography of abdomen and pelvis with contrast [id number] 08/18/2018 [facility] Photoselective vaporization of prostate (PVP) with 532 nm laser [id number] 07/06/2018 [facility] LASER SURGERY OF PROSTATE [id number] 07/06/2018 [facility] Cystoscopy and removal of calculus of bladder [id number] [facility] Rotator cuff repair<sup>1</sup> [id number] x 2, [facility] Assessment and Plan No Data Provided for This Section Plan of Care Plan of Care Date Source Discharge Date 12/13/18 4:46pm Disposition HOME, SELF-CARE Instructions/Education Provided Back Pain Prescriptions See Medication Section Referrals (Infectious Disease) Order Date: 12/14/2018 Entered Date: 12/13/2018 4:36pm Additional Instructions/Education Follow up with PCP in one week 12/13/2018 [facility] Discharge Date 07/07/18 2:31pm Disposition HOME, SELF-CARE Instructions/Education Provided Benign Prostatic Hypertrophy (BPH) TURP Prescriptions See Medication Section Referrals BINH SETH MD (Urology) Order Date: 2 Weeks Entered Date: 07/07/2018 11:11am Address: [address] [place] [address] [address] [place] [id number] 07/07/2018 [facility] Social History Social History Date Source Social History Problem Response Recorded Date/Time Onset Date Status Hx Psychiatric Problems No 10/26/2013 4:15am Not Applicable Not Applicable Hx Eating Disorder No 10/26/2013 4:15am Not Applicable Not Applicable Hx Substance Use Disorder No 10/26/2013 4:15am Not Applicable Not Applicable Hx Depression No 10/26/2013 4:15am Not Applicable Not Applicable Hx Alcohol Use No 10/26/2013 4:15am Not Applicable Not Applicable Hx Substance Use Treatment No 10/26/2013 4:15am Not Applicable Not Applicable Hx Physical Abuse No 10/26/2013 4:15am Not Applicable Not Applicable 12/13/2018 [facility] Social History TypeResponse Exercise 1 Alcohol Never Smoking Status Current every day smoker; Type: Hookah, 3-4 x day, for 15 years.; Exposure to Tobacco Smoke Self.; Cigarette Smoking Last 365 Days No; Reg Smoking Cessation Counseling No2 1States he jogs for ~ 1 hour, 3x week. denies dyspnea on mild exertion or with stairs.2No cigarettes smoking, but Hookah for tobacco. 07/05/2017 [facility] Family History No Data Provided for This Section Advance Directives Order Name Results Value Date Source Advance Directives Advance Directives Directive Response Recorded Date/Time Does the patient have an advance directive? No 12/08/18 11:42am If yes, is advance directive on file with [employer] Dating by [facility] [employer]? No 12/08/18 11:42am If not on file with [facility] will patient provide a copy? No 12/08/18 11:42am Do you have a Directive to Physician? No 12/08/18 7:36am Do you have a Medical Power of Lining Maker? No 12/08/18 7:36am Do you have an out of hospital Do Not Resuscitate Order? No 12/08/18 7:36am Do you have any special needs we should be aware of? No 12/08/18 7:36am Do you have a support person here with you today? Yes 12/08/18 7:36am Did patient receive Notice of Privacy Practices? Yes 12/08/18 7:36am Did patient receive patient rights and responsibilities? Yes 12/08/18 7:36am 12/13/2018 [facility] Advance Directives Advance Directives Directive Response Recorded Date/Time Does the patient have an advance directive? No 07/06/18 2:55pm If yes, is advance directive on file with [employer] Dating by [employer] [facility]? No 07/06/18 2:55pm If not on file with [facility] will patient provide a copy? No 07/06/18 2:55pm Do you have a Directive to Physician? No 07/04/18 8:32am Do you have a Medical Power of Lining Maker? No 07/04/18 8:32am Do you have an out of hospital Do Not Resuscitate Order? No 07/04/18 8:32am Do you have any special needs we should be aware of? No 07/04/18 8:32am Do you have a support person here with you today? No 07/04/18 8:32am Did patient receive Notice of Privacy Practices? Yes 07/04/18 8:32am Did patient receive patient rights and responsibilities? Yes 07/04/18 8:32am 07/07/2018 [facility] Functional Status No Data Provided for This Section
--- NOTE | 2019-03-31 07:20 | NUR ---
SPIRITUAL CARE - Pre-Surgery Assessment: Pt in bed. Pt's at bedside. Pt reported supportive attention from family and friends. Intervention: I provided pastoral presence, hospitality, and sympathetic listening. I acquainted pt with availability of cloth washer operator while hospitalized. Outcome: Pt expressed appreciation for visit. No need for follow up indicated at this time. JULIEN Brownlain Spiritual Care Department O: [phone] Pager: [phone] ([phone] number calling from)
--- NOTE | 2019-03-31 07:34 | Diagnostic Imaging Report ---
EXAM: Abdomen Radiograph 1 View(s) INDICATION: Presurgical evaluation COMPARISON: Abdominal CT 01/23/2019. FINDINGS: No lines or tubes. Normal volume of stool in the colon. No dilated loops of small bowel. No abnormal abdominal calcifications.. No abnormal soft tissue masses. No pneumoperitoneum. Mild degenerative changes in the lumbar spine and pelvis. The lower chest is unremarkable. A 1 cm oval calcification projects in the right mid abdomen was in the paraspinal soft tissues as seen on abdominal CT 01/23/2019. IMPRESSION: No acute abdominal radiographic abnormality. Signed by: Maicol Chavarria DO on 03/31/2019 7:31 AM
[2019-03-31 10:00] VITALS: BP 143/81
--- NOTE | 2019-05-09 07:36 | Operative Report ---
DATE OF PROCEDURE: 03/31/2019 SURGEON: Jaya Nicolas MD PREOPERATIVE DIAGNOSES: 1. Bladder cancer. 2. Kidney stones. 3. Obstructive benign prostatic hypertrophy. POSTOPERATIVE DIAGNOSES: 1. Bladder cancer. 2. Kidney stones. 3. Obstructive benign prostatic hypertrophy. OPERATION PERFORMED: 1. Cystourethroscopy with bilateral ureteral catheterization and retrograde ureteropyelography (separate procedure performed for the stones and BPH). 2. Interpretation of retrograde ureteropyelography. 3. Cystourethroscopy with directed bladder biopsy (separate procedure performed to evaluate for any residual bladder cancer in the region of the previous bladder cancer). ANESTHESIA: General. COMPLICATIONS: None. CLINICAL SUMMARY: Jose Garcia is a very complicated urological patient, who is status post transurethral resection of the prostate by another urologist. 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 This was treated with long course of antibiotics. The patient then developed an obstructing ureteral stone and has a history of bilateral nephrolithiasis. The patient underwent management of the stone at that point in time and mucosal abnormality was noted. This proved to be bladder cancer, which was resected. The patient subsequently brought to the operating room to re-biopsy that region and hopefully render the patient and the diagnosis of another cancer. The patient is aware of the risks of bleeding, infection, injury to adjacent structures, need for additional procedures, and elected to proceed. OPERATIVE PROCEDURE IN DETAIL: Informed consent was verified. Jose Garcia was properly identified, taken to the operating room, placed on the cystoscopy table in supine position. Anesthesia was uneventfully begun. The patient was then carefully and gently repositioned in dorsal lithotomy position. All pressure points well padded. His genitalia were prepared and draped in usual sterile fashion. The cystoscope sheath with the visual obturator in place was atraumatically inserted into the patient's urethra, was guided unremarkable distal urethra through the bulbar region where there was a false channel posteriorly. We entered the patient's prostate and through the normal sphincteric region. The prostate was significant for being apparently open, status post transurethral resection with complete re-epithelialization. Panendoscopy of the bladder revealed the regions of prior bladder tumor, which contained scar and mild erythema. Directed bladder biopsies were taken of this region and fulguration of the base was performed with Bugbee electrode. No additional suspicious mucosal lesions could be identified within the bladder. An 8-Samoan catheter was used to cannulate each ureter and retrograde ureteropyelography was performed. Interpretation of retrograde ureteropyelography contrast was instilled in a retrograde fashion bilaterally. There were no tumors. There were no visible stones. Unobstructed drainage was observed bilaterally fluoroscopically. The patient's bladder was drained and the cystoscope was withdrawn. Belladonna and opium suppository were placed revealing a 20 g prostate, smooth and non-fluctuant without any nodules. The patient was uneventfully reversed from anesthesia and taken to recovery room in stable condition. Explicit postop instructions were given. We will follow the patient up in the office. Jaya MD ARSALAN Nicolas/PAWAN /[id number] cc: Carlos Peña DO
== END | disposition home or self-care (01) ==
LOC: OR 06:06
PROVIDERS: ATTEND Urology
DX: C67.9 Malignant neoplasm of bladder, unspecified (principal); Z01.810 Encounter for preprocedural cardiovascular examination; Z01.812 Encounter for preprocedural laboratory examination; Z01.811 Encounter for preprocedural respiratory examination; N20.0 Calculus of kidney; N40.1 Benign prostatic hyperplasia with lower urinary tract symptoms; N13.8 Other obstructive and reflux uropathy; I10 Essential (primary) hypertension
CPT/HCPCS: 36415; 52005; 52214; 71046; 74018; 74420; 80048; 85025; 88305; 93005; J1100; J2001; J2185; J2250; J2405; J2704; J3010; Q9967

== ENCOUNTER → 2019-10-11 | Day surgery (SDC) | payer MEDICARE, OTHER ==
[2019-10-09 10:54] LABS: BASOPHILS % 0.7 % (0.0-1.0); EOSINOPHILS # (AUTO) 0.1 (0.0-0.4); EOSINOPHILS % 2.3 % (0.0-6.0); HEMATOCRIT 43.1 % (38.2-49.6); HEMOGLOBIN 14.2 g/dL (14.0-18.0); LYMPHOCYTES # (AUTO) 1.4 (1.0-3.2); LYMPHOCYTES % 44.1 % (18.0-39.1); MEAN CORPUSCULAR HEMOGLOBIN 28.9 pg (28-32); MEAN CORPUSCULAR HGB CONC 32.9 g/dL (31-35); MEAN CORPUSCULAR VOLUME 87.6 fL (81-99); MONOCYTES # (AUTO) 0.4 (0.2-0.8); MONOCYTES % 11.8 % (4.4-11.3); NEUTROPHILS # (AUTO) 1.3 (2.1-6.9); NEUTROPHILS % 41.1 % (38.7-80.0); PLATELET COUNT 208 x10e3/uL (140-360); RED BLOOD COUNT 4.92 x10e6/uL (4.3-5.7); RED CELL DISTRIBUTION WIDTH 13.9 % (11.7-14.4)
--- NOTE | 2019-10-09 11:31 | Diagnostic Imaging Report ---
Abdomen, one view on 2 radiographs Clinical indications: Presurgical evaluation, bladder cancer Comparison: 03/31/2019 Findings: The bowel gas pattern is nonobstructive. No renal calculi are identified. A 1 cm oval calcification is seen in the right paraspinal soft tissues and is unchanged. No acute osseous abnormality. Impression: No acute radiographic abnormality of the abdomen. Signed by: Brandyn Hummel MD on 10/09/2019 11:29 AM
[~2019-10-11] MED LIST changes: +ACETAMINOPHEN 1000 MG/100 ML IV ONE; +AMPICILLIN SOD 1 GM/NS 50ML 50 ML IV ONE; +GENTAMICIN 80MG/NS 100 ML 100 ML IV ONE; +IOPAMIDOL 300MG/ML 50ML INFUS..BTL IV ONE; -IOPAMIDOL 610MG/1ML 300 MG/ML VIAL IV ONE; -MEROPENEM 1GM 100 ML IV ONE; +SEVOFLURANE INHAL SOLN 250 ML PEN BTL ONE
[2019-10-11 12:34] VITALS: BP 134/90
--- NOTE | 2019-11-05 19:56 | Operative Report ---
DATE OF PROCEDURE: 10/11/2019 SURGEON: Jaya Nicolas MD PREOPERATIVE DIAGNOSES: 1. Bladder cancer. 2. Urinary tract infections. 3. History of urolithiasis. POSTOPERATIVE DIAGNOSES: 1. Bladder cancer. 2. Urinary tract infections. 3. History of urolithiasis. OPERATION PERFORMED: 1. Cystourethroscopy with bilateral ureteral catheterization and retrograde ureteropyelography (separate procedure performed for the ureterolithiasis and urinary tract infections). 2. Interpretation of retrograde ureteropyelography. 3. Cystourethroscopy with directed bladder biopsies (separate procedure performed to follow up in the patient's bladder cancer). ANESTHESIA: General. COMPLICATIONS: None. CLINICAL SUMMARY: Jose Garcia is a 73-year-old man, who has a history of BPH, he is status post 2 transurethral procedures. He also had a history of complicated infection in the lower urinary tract. He has a known false channel within the urethra. He also has a history of urolithiasis that was managed as well as bladder cancer that was resected. He is brought for surveillance. He is incapable of tolerating an office cystoscopic examination. He is brought for the above procedures. He is aware of the risks of bleeding, infection, injury to adjacent structures, need for additional procedures, and elected to proceed. OPERATIVE PROCEDURE IN DETAIL: Informed consent was verified. Jose Garcia was properly identified, taken to the operating room, and placed on the cystoscopy table in supine position. Anesthesia was uneventfully begun. The patient was then carefully and gently repositioned in the dorsal lithotomy position with all pressure points well padded. His genitalia were prepared and draped in usual sterile fashion. A 22.5-[place] African cystoscope sheath with the visual obturator in place was atraumatically inserted in the patient's urethra. It was guided down the normal distal urethra to the region where there was a false channel posteriorly and a little to the right hand side. We went through the urethral channel, went through the normal sphincteric region, went through the prostate bed, which was wide open status post transurethral resection. We entered the patient's bladder. Panendoscopy revealed a scarring and some calcification of a previous region where we resected the bladder cancer. There was also another small erythematous patch. Both of these regions were biopsied and then fulgurated with the Bugbee electrode with perfect hemostasis. Panendoscopy of the bladder revealed a small diverticulum on the right hand side of the bladder. An 8-South African catheter was used to cannulate each ureter and retrograde ureteropyelograms were performed. Interpretation of retrograde ureteropyelography contrast was instilled in retrograde fashion bilaterally. There were no tumors and no stones were appreciated. There was no hydronephrosis. Unobstructed drainage was observed bilaterally fluoroscopically. The patient's bladder was drained and cystoscope was withdrawn. Belladonna and opium suppository were placed. The patient was uneventfully reversed from anesthesia and taken to recovery room in stable condition. There were no complications to the procedure. He tolerated the procedure well. Explicit postop instructions were given. We will follow the patient up in the office. Jaya Nicolas MD [place]/[facility] /[id number] cc: Carlos Peña DO
== END | disposition home or self-care (01) ==
LOC: OR 08:36
PROVIDERS: ATTEND Urology
DX: C67.9 Malignant neoplasm of bladder, unspecified (principal); I10 Essential (primary) hypertension; N40.1 Benign prostatic hyperplasia with lower urinary tract symptoms; N20.0 Calculus of kidney; N20.1 Calculus of ureter; N13.30 Unspecified hydronephrosis; N28.1 Cyst of kidney, acquired; N41.1 Chronic prostatitis; R31.0 Gross hematuria; R80.9 Proteinuria, unspecified; N39.0 Urinary tract infection, site not specified; K42.9 Umbilical hernia without obstruction or gangrene; R31.29 Other microscopic hematuria; N32.81 Overactive bladder; N39.41 Urge incontinence; N52.9 Male erectile dysfunction, unspecified; E29.1 Testicular hypofunction
CPT/HCPCS: 36415; 52204; 74018; 74420; 85025; 88305; C1758; J0131; J0290; J1100; J1580; J2001; J2250; J2405; J2704; J3010; Q9967

== ENCOUNTER → 2020-04-24 | Day surgery (SDC) | payer MEDICARE, OTHER ==
[2020-04-19 14:56] LABS: BASOPHILS % 0.9 % (0.0-1.0); EOSINOPHILS # (AUTO) 0.1 (0.0-0.4); EOSINOPHILS % 1.6 % (0.0-6.0); HEMATOCRIT 45.9 % (38.2-49.6); HEMOGLOBIN 15.1 g/dL (14.0-18.0); LYMPHOCYTES # (AUTO) 1.8 (1.0-3.2); LYMPHOCYTES % 41.1 % (18.0-39.1); MEAN CORPUSCULAR HEMOGLOBIN 29.2 pg (28-32); MEAN CORPUSCULAR HGB CONC 32.9 g/dL (31-35); MEAN CORPUSCULAR VOLUME 88.8 fL (81-99); MONOCYTES # (AUTO) 0.4 (0.2-0.8); MONOCYTES % 9.3 % (4.4-11.3); NEUTROPHILS % 45.7 % (38.7-80.0); PLATELET COUNT 224 x10e3/uL (140-360); RED BLOOD COUNT 5.17 x10e6/uL (4.3-5.7); RED CELL DISTRIBUTION WIDTH 13.6 % (11.7-14.4)
[~2020-04-24] MED LIST changes: -ACETAMINOPHEN 1000 MG/100 ML IV ONE; -AMPICILLIN SOD 1 GM/NS 50ML 50 ML IV ONE; +CEFTRIAXONE SOD 1 GM/NS 50 ML 50 ML IV ONE; -DEXAMETHASONE SOD PHOS INJ 4 MG/ML VIAL ONE; -GENTAMICIN 80MG/NS 100 ML 100 ML IV ONE
[2020-04-24 10:40] VITALS: BP 135/97
--- NOTE | 2020-05-10 08:26 | Operative Report ---
DATE OF PROCEDURE: 04/24/2020 SURGEON: Jaya Nicolas MD PREOPERATIVE DIAGNOSES: 1. Bladder cancer. 2. History of urolithiasis. POSTOPERATIVE DIAGNOSES: 1. Bladder cancer. 2. History of urolithiasis. OPERATION PERFORMED: 1. Cystourethroscopy with bilateral ureteral catheterization and retrograde ureteropyelography. 2. Interpretation of retrograde ureteropyelography, no radiologist present. ANESTHESIA: General. COMPLICATIONS: None. CLINICAL SUMMARY: Please refer to prior charts. OPERATIVE PROCEDURE IN DETAIL: Informed consent was verified, Jose Garcia was properly identified and taken to the operating room, placed on the cystoscopy table in supine position. Anesthesia was uneventfully begun. The patient was then carefully gently repositioned in dorsal lithotomy position with all pressure points well padded. His genitalia were prepared and draped in usual sterile fashion. The cystoscope sheath with a visual obturator in place was atraumatically inserted into the patient's urethra, it was guided unremarkable distal urethra to the mid urethral region where there was a fistulous tract or at least a false passage. We went into the correct urethra and guided the cystoscope passed a normal sphincteric region and through the prostate bed, which was significant for mild residual apical tissue and generally wide open prostatic bed. We entered the patient's bladder. Panendoscopy revealed no suspicious mucosal lesions, no tumors, no stones, and no diverticula. An 8-Latvian catheter was used to cannulate each ureter and retrograde ureteral pyelograms were performed. Interpretation of retrograde ureteropyelography contrast was instilled in retrograde fashion bilaterally. There were no tumors, there were no stones, there were no diverticula. Unobstructed drainage was observed bilaterally fluoroscopically. The patient's bladder was drained. The cystoscope was withdrawn. A belladonna and opium suppository were placed. The patient was uneventfully reversed from anesthesia and taken to recovery room in stable condition. Explicit postoperative instructions were given and we will follow the patient up in the office. We will plan to schedule him in early July for another cystoscopy and retrograde ureteropyelography. Jaya Nicolas MD [place]/[facility] /[id number]
== END | disposition home or self-care (01) ==
LOC: OR 06:50
PROVIDERS: ATTEND Urology
DX: C67.9 Malignant neoplasm of bladder, unspecified (principal); Z87.442 Personal history of urinary calculi; I10 Essential (primary) hypertension; E78.5 Hyperlipidemia, unspecified; Z01.810 Encounter for preprocedural cardiovascular examination; Z01.812 Encounter for preprocedural laboratory examination; Z11.59 Encounter for screening for other viral diseases; Z86.73 Personal history of transient ischemic attack (TIA), and cerebral infarction without residual deficits
CPT/HCPCS: 36415; 52005; 74420; 85025; 93005; C1758; J0696; J2001; J2250; J2405; J2704; J3010; Q9967; U0002

== ENCOUNTER → 2020-07-12 | Day surgery (SDC) | payer MEDICARE, OTHER ==
[2020-07-09 13:27] LABS: BASOPHILS % 0.9 % (0.0-1.0); EOSINOPHILS # (AUTO) 0.1 (0.0-0.4); EOSINOPHILS % 2.8 % (0.0-6.0); HEMATOCRIT 48.5 % (38.2-49.6); HEMOGLOBIN 15.9 g/dL (14.0-18.0); LYMPHOCYTES # (AUTO) 2.1 (1.0-3.2); LYMPHOCYTES % 49.3 % (18.0-39.1); MEAN CORPUSCULAR HEMOGLOBIN 29.6 pg (28-32); MEAN CORPUSCULAR HGB CONC 32.8 g/dL (31-35); MEAN CORPUSCULAR VOLUME 90.1 fL (81-99); MONOCYTES # (AUTO) 0.5 (0.2-0.8); MONOCYTES % 10.6 % (4.4-11.3); NEUTROPHILS # (AUTO) 1.6 (2.1-6.9); NEUTROPHILS % 35.7 % (38.7-80.0); PLATELET COUNT 208 x10e3/uL (140-360); RED BLOOD COUNT 5.38 x10e6/uL (4.3-5.7); RED CELL DISTRIBUTION WIDTH 13.5 % (11.7-14.4)
[~2020-07-12] MED LIST changes: +DEXAMETHASONE SOD PHOS INJ 4 MG/ML VIAL ONE; -FENTANYL CITRATE/PF 100MCG/2 ML INJ ONE
[2020-07-12 09:50] VITALS: BP 143/85
== END | disposition home or self-care (01) ==
LOC: OR 07:04
PROVIDERS: ATTEND Urology
DX: C67.1 Malignant neoplasm of dome of bladder (principal); N32.89 Other specified disorders of bladder; N28.1 Cyst of kidney, acquired; N41.1 Chronic prostatitis; R80.9 Proteinuria, unspecified; N39.0 Urinary tract infection, site not specified; K42.9 Umbilical hernia without obstruction or gangrene; N32.81 Overactive bladder; N39.41 Urge incontinence; N52.9 Male erectile dysfunction, unspecified; E29.1 Testicular hypofunction; I45.10 Unspecified right bundle-branch block; I11.0 Hypertensive heart disease with heart failure; I50.9 Heart failure, unspecified; Z98.890 Other specified postprocedural states; Z01.812 Encounter for preprocedural laboratory examination; Z01.818 Encounter for other preprocedural examination; Z20.828 Contact with and (suspected) exposure to other viral communicable diseases
CPT/HCPCS: 36415; 52005; 52234; 71046; 74420; 85025; 88305; C1758; C1769; J0696; J1100; J2001; J2250; J2405; J2704; Q9967; U0002

== ENCOUNTER → 2020-08-19 | Outpatient (CLI) | payer MEDICARE, OTHER ==
[~2020-08-19] MED LIST changes: -B&O 60MG R/S 60 MG SUPP PR ONE; -CEFTRIAXONE SOD 1 GM/NS 50 ML 50 ML IV ONE; -DEXAMETHASONE SOD PHOS INJ 4 MG/ML VIAL ONE; -IOPAMIDOL 300MG/ML 50ML INFUS..BTL IV ONE; +IOPAMIDOL 370 MG/ML 200 ML INFUS..BTL INJ ONE; -LIDOCAINE HCL 2% LOCAL INJ 5 ML SDV VIAL INJ ONE; -MIDAZOLAM HCL 2 MG/2 ML VIAL ONE; -ONDANSETRON HCL INJ 2MG/ML 2ML 2 MG/ML VIAL ONE; -PROPOFOL IV EMULSION 10 MG/ML 20 ML VIAL ONE; -SEVOFLURANE INHAL SOLN 250 ML PEN BTL ONE; +SODIUM CHLORIDE 0.9% 500ML 500 ML ONE; +SODIUM CHLORIDE 0.9% 50ML 50 ML ONE
[2020-08-19 09:58] LABS: CREATININE, SERUM 1.22 mg/dL (0.72-1.25)
== END ==
LOC: CT 09:20
PROVIDERS: ATTEND Family Medicine
DX: R91.8 Other nonspecific abnormal finding of lung field (principal); C67.9 Malignant neoplasm of bladder, unspecified
CPT/HCPCS: 36415; 71260; 74177; 82565; 84520; 96360; J7040; Q9967

== ENCOUNTER → 2020-11-22 | Day surgery (SDC) | payer MEDICARE, OTHER ==
[2020-11-19 12:53] LABS: BASOPHILS % 1.1 % (0.0-1.0); EOSINOPHILS # (AUTO) 0.1 (0.0-0.4); HEMATOCRIT 45.4 % (38.2-49.6); HEMOGLOBIN 14.6 g/dL (14.0-18.0); LYMPHOCYTES # (AUTO) 1.4 (1.0-3.2); LYMPHOCYTES % 38.6 % (18.0-39.1); MEAN CORPUSCULAR HEMOGLOBIN 29.7 pg (28-32); MEAN CORPUSCULAR HGB CONC 32.2 g/dL (31-35); MEAN CORPUSCULAR VOLUME 92.5 fL (81-99); MONOCYTES # (AUTO) 0.3 (0.2-0.8); MONOCYTES % 9.1 % (4.4-11.3); NEUTROPHILS # (AUTO) 1.7 (2.1-6.9); NEUTROPHILS % 46.5 % (38.7-80.0); PLATELET COUNT 219 x10e3/uL (140-360); RED BLOOD COUNT 4.91 x10e6/uL (4.3-5.7); RED CELL DISTRIBUTION WIDTH 13.5 % (11.7-14.4)
[~2020-11-22] MED LIST changes: +B&O 60MG R/S 60 MG SUPP PR ONE; +CEFTRIAXONE SOD 1 GM VIAL ONE; +DESFLURANE 240 ML BTL INH ONE; +DEXAMETHASONE SOD PHOS INJ 4 MG/ML VIAL ONE; +GENTAMICIN 80MG/NS 100 ML 100 ML IV ONE; +IOPAMIDOL 300MG/ML 50ML INFUS..BTL IV ONE; -IOPAMIDOL 370 MG/ML 200 ML INFUS..BTL INJ ONE; +LIDOCAINE HCL 2% LOCAL INJ 5 ML SDV VIAL INJ ONE; +ONDANSETRON HCL INJ 2MG/ML 2ML 2 MG/ML VIAL ONE; +PROPOFOL IV EMULSION 10 MG/ML 20 ML VIAL ONE; -SODIUM CHLORIDE 0.9% 500ML 500 ML ONE
[2020-11-22 12:15] VITALS: BP 138/81
== END | disposition home or self-care (01) ==
LOC: OR 09:11
PROVIDERS: ATTEND Urology
DX: C67.9 Malignant neoplasm of bladder, unspecified (principal); Z87.442 Personal history of urinary calculi; N39.0 Urinary tract infection, site not specified; Z98.890 Other specified postprocedural states; I10 Essential (primary) hypertension; I45.10 Unspecified right bundle-branch block; Z01.810 Encounter for preprocedural cardiovascular examination; Z01.812 Encounter for preprocedural laboratory examination; Z01.818 Encounter for other preprocedural examination
CPT/HCPCS: 36415; 52005; 52214; 71046; 74420; 85025; 88305; 93005; C1758; J0696; J1580; Q9967; U0002

== ENCOUNTER → 2021-02-13 | Outpatient (CLI) | payer MEDICARE, OTHER ==
[~2021-02-13] MED LIST changes: -B&O 60MG R/S 60 MG SUPP PR ONE; -CEFTRIAXONE SOD 1 GM VIAL ONE; -DESFLURANE 240 ML BTL INH ONE; -DEXAMETHASONE SOD PHOS INJ 4 MG/ML VIAL ONE; -GENTAMICIN 80MG/NS 100 ML 100 ML IV ONE; -IOPAMIDOL 300MG/ML 50ML INFUS..BTL IV ONE; +IOPAMIDOL 370 MG/ML 200 ML INFUS..BTL INJ ONE; -LIDOCAINE HCL 2% LOCAL INJ 5 ML SDV VIAL INJ ONE; -ONDANSETRON HCL INJ 2MG/ML 2ML 2 MG/ML VIAL ONE; -PROPOFOL IV EMULSION 10 MG/ML 20 ML VIAL ONE; +SODIUM CHLORIDE 0.9% 250ML 250 ML ONE; -SODIUM CHLORIDE 0.9% 50ML 50 ML ONE
== END ==
LOC: CT 16:04
PROVIDERS: ATTEND Urology
DX: R31.0 Gross hematuria (principal)
CPT/HCPCS: 74178; J7050; Q9967

== ENCOUNTER → 2021-03-07 | Day surgery (SDC) | payer MEDICARE, OTHER ==
[2021-03-05 11:23] LABS: BASOPHILS % 0.7 % (0.0-1.0); EOSINOPHILS # (AUTO) 0.2 (0.0-0.4); EOSINOPHILS % 4.8 % (0.0-6.0); HEMOGLOBIN 14.6 g/dL (14.0-18.0); LYMPHOCYTES # (AUTO) 1.3 (1.0-3.2); LYMPHOCYTES % 30.7 % (18.0-39.1); MEAN CORPUSCULAR HEMOGLOBIN 28.9 pg (28-32); MEAN CORPUSCULAR HGB CONC 32.4 g/dL (31-35); MEAN CORPUSCULAR VOLUME 88.9 fL (81-99); MONOCYTES # (AUTO) 0.4 (0.2-0.8); MONOCYTES % 8.5 % (4.4-11.3); NEUTROPHILS # (AUTO) 2.4 (2.1-6.9); NEUTROPHILS % 53.9 % (38.7-80.0); PLATELET COUNT 202 x10e3/uL (140-360); RED BLOOD COUNT 5.06 x10e6/uL (4.3-5.7); RED CELL DISTRIBUTION WIDTH 13.2 % (11.7-14.4)
[2021-03-05 11:41] LABS: ALBUMIN 3.5 g/dL (3.5-5.0); ANION GAP 12.9 mmol/L (8-16); CREATININE, SERUM 0.96 mg/dL (0.72-1.25); POTASSIUM 3.9 mmol/L (3.5-5.1)
[~2021-03-07] MED LIST changes: +B&O 60MG R/S 60 MG SUPP PR ONE; +CEFTRIAXONE 1 GM VIAL ONE; +DEXAMETHASONE SOD PHOS INJ 4 MG/ML VIAL ONE; +FENTANYL CITRATE/PF 100MCG/2 ML INJ ONE; +IOPAMIDOL 300MG/ML 50ML INFUS..BTL IV ONE; -IOPAMIDOL 370 MG/ML 200 ML INFUS..BTL INJ ONE; +LIDOCAINE HCL 2% LOCAL INJ 5 ML SDV VIAL INJ ONE; +MEPERIDINE HCL INJ 25 MG/ML VIAL ONE; +MIDAZOLAM HCL 2 MG/2 ML VIAL ONE; +ONDANSETRON HCL INJ 2MG/ML 2ML 2 MG/ML VIAL ONE; +PHENAZOPYRIDINE HCL 100 MG TAB PO ONE; +POVIDONE IODINE 0.05% 0.05 % ML PO ONE; +PROPOFOL IV EMULSION 10 MG/ML 20 ML VIAL ONE; +SEVOFLURANE INHAL SOLN 250 ML PEN BTL ONE; -SODIUM CHLORIDE 0.9% 250ML 250 ML ONE; +SODIUM CHLORIDE 0.9% 50ML 50 ML ONE
[2021-03-07 14:15] VITALS: BP 154/89
== END | disposition home or self-care (01) ==
LOC: OR 08:49
PROVIDERS: ATTEND Urology
DX: C67.9 Malignant neoplasm of bladder, unspecified (principal); N13.2 Hydronephrosis with renal and ureteral calculous obstruction; N40.1 Benign prostatic hyperplasia with lower urinary tract symptoms; N39.41 Urge incontinence; N28.1 Cyst of kidney, acquired; N41.1 Chronic prostatitis; R31.0 Gross hematuria; K42.9 Umbilical hernia without obstruction or gangrene; R31.29 Other microscopic hematuria; N32.81 Overactive bladder; N52.9 Male erectile dysfunction, unspecified; E29.1 Testicular hypofunction; F17.200 Nicotine dependence, unspecified, uncomplicated; D41.01 Neoplasm of uncertain behavior of right kidney; Z01.812 Encounter for preprocedural laboratory examination; Z01.818 Encounter for other preprocedural examination; Z86.73 Personal history of transient ischemic attack (TIA), and cerebral infarction without residual deficits; I10 Essential (primary) hypertension; E78.5 Hyperlipidemia, unspecified
CPT/HCPCS: 36415; 50590; 52005; 74018; 74420; 80053; 85025; C1758; J0696; J1100; J2001; J2175; J2250; J2405; J2704; J3010; Q9967

== ENCOUNTER → 2021-06-24 | Outpatient (CLI) | payer MEDICARE, OTHER ==
[~2021-06-24] MED LIST changes: -B&O 60MG R/S 60 MG SUPP PR ONE; -CEFTRIAXONE 1 GM VIAL ONE; -DEXAMETHASONE SOD PHOS INJ 4 MG/ML VIAL ONE; -FENTANYL CITRATE/PF 100MCG/2 ML INJ ONE; -IOPAMIDOL 300MG/ML 50ML INFUS..BTL IV ONE; -LIDOCAINE HCL 2% LOCAL INJ 5 ML SDV VIAL INJ ONE; -MEPERIDINE HCL INJ 25 MG/ML VIAL ONE; -MIDAZOLAM HCL 2 MG/2 ML VIAL ONE; -ONDANSETRON HCL INJ 2MG/ML 2ML 2 MG/ML VIAL ONE; -PHENAZOPYRIDINE HCL 100 MG TAB PO ONE; -POVIDONE IODINE 0.05% 0.05 % ML PO ONE; -PROPOFOL IV EMULSION 10 MG/ML 20 ML VIAL ONE; -SEVOFLURANE INHAL SOLN 250 ML PEN BTL ONE; -SODIUM CHLORIDE 0.9% 50ML 50 ML ONE
== END ==
LOC: RAD 11:37
PROVIDERS: ATTEND Urology
DX: N20.0 Calculus of kidney (principal)
CPT/HCPCS: 74018

== ENCOUNTER → 2021-07-23 | Day surgery (SDC) | payer MEDICARE, OTHER ==
[2021-07-21 11:42] LABS: BASOPHILS % 0.5 % (0.0-1.0); EOSINOPHILS # (AUTO) 0.1 (0.0-0.4); EOSINOPHILS % 2.5 % (0.0-6.0); HEMATOCRIT 49.4 % (38.2-49.6); HEMOGLOBIN 15.7 g/dL (14.0-18.0); LYMPHOCYTES # (AUTO) 1.5 (1.0-3.2); LYMPHOCYTES % 38.4 % (18.0-39.1); MEAN CORPUSCULAR HEMOGLOBIN 29.3 pg (28-32); MEAN CORPUSCULAR HGB CONC 31.8 g/dL (31-35); MEAN CORPUSCULAR VOLUME 92.3 fL (81-99); MONOCYTES # (AUTO) 0.3 (0.2-0.8); MONOCYTES % 8.2 % (4.4-11.3); NEUTROPHILS % 49.9 % (38.7-80.0); PLATELET COUNT 194 x10e3/uL (140-360); RED BLOOD COUNT 5.35 x10e6/uL (4.3-5.7); RED CELL DISTRIBUTION WIDTH 13.4 % (11.7-14.4)
[2021-07-21 12:09] LABS: ALBUMIN/GLOBULIN RATIO 1.4 (0.8-2.0); ANION GAP 13.3 mmol/L (8-16); CALCIUM 8.9 mg/dL (8.4-10.2); CREATININE, SERUM 1.14 mg/dL (0.72-1.25); POTASSIUM 4.3 mmol/L (3.5-5.1)
[~2021-07-23] MED LIST changes: +BELLADONNA/OPIUM 30 MG SUPP RC ONE; +CEFTRIAXONE 1 GM VIAL ONE; +DEXAMETHASONE SOD PHOS INJ 4 MG/ML SDV ONE; +FENTANYL CITRATE/PF 100MCG/2 ML INJ ONE; +IOPAMIDOL 300MG/ML 50ML INFUS..BTL IV ONE; +LIDOCAINE HCL 2% LOCAL INJ 5 ML SDV VIAL INJ ONE; +ONDANSETRON HCL INJ 2MG/ML 2ML 2 MG/ML VIAL ONE; +PHENAZOPYRIDINE HCL 100 MG TAB ONE; +POVIDONE IODINE 0.05% 0.05 % ML PO ONE; +PROPOFOL IV EMULSION 10 MG/ML 20 ML VIAL ONE; +SEVOFLURANE INHAL SOLN 250 ML PEN BTL ONE; +SODIUM CHLORIDE 0.9% 50ML 50 ML ONE
[2021-07-23 11:55] VITALS: BP 161/88
== END | disposition home or self-care (01) ==
LOC: OR 07:54
PROVIDERS: ATTEND Urology
DX: N39.0 Urinary tract infection, site not specified (principal); R31.0 Gross hematuria; R31.29 Other microscopic hematuria; C67.9 Malignant neoplasm of bladder, unspecified; N20.0 Calculus of kidney; N32.81 Overactive bladder; N39.41 Urge incontinence; N52.9 Male erectile dysfunction, unspecified; I10 Essential (primary) hypertension; E78.00 Pure hypercholesterolemia, unspecified; E11.9 Type 2 diabetes mellitus without complications; K42.9 Umbilical hernia without obstruction or gangrene; F17.290 Nicotine dependence, other tobacco product, uncomplicated; Z86.73 Personal history of transient ischemic attack (TIA), and cerebral infarction without residual deficits; Z01.810 Encounter for preprocedural cardiovascular examination; Z01.812 Encounter for preprocedural laboratory examination; Z20.822 Contact with and (suspected) exposure to COVID-19; Z79.899 Other long term (current) drug therapy
CPT/HCPCS: 36415; 52005; 74420; 80053; 83970; 84550; 85025; 93005; C1758; J0696; J1100; J2001; J2405; J2704; J3010; Q9967; U0002

== ENCOUNTER → 2021-09-19 | Day surgery (SDC) | payer MEDICARE, OTHER ==
[2021-09-17 10:09] LABS: BASOPHILS % 0.8 % (0.0-1.0); EOSINOPHILS # (AUTO) 0.1 (0.0-0.4); HEMATOCRIT 48.1 % (38.2-49.6); HEMOGLOBIN 15.6 g/dL (14.0-18.0); LYMPHOCYTES # (AUTO) 1.8 (1.0-3.2); LYMPHOCYTES % 38.8 % (18.0-39.1); MEAN CORPUSCULAR HEMOGLOBIN 29.9 pg (28-32); MEAN CORPUSCULAR HGB CONC 32.4 g/dL (31-35); MEAN CORPUSCULAR VOLUME 92.3 fL (81-99); MONOCYTES # (AUTO) 0.5 (0.2-0.8); MONOCYTES % 9.5 % (4.4-11.3); NEUTROPHILS # (AUTO) 2.2 (2.1-6.9); NEUTROPHILS % 46.4 % (38.7-80.0); PLATELET COUNT 223 x10e3/uL (140-360); RED BLOOD COUNT 5.21 x10e6/uL (4.3-5.7); RED CELL DISTRIBUTION WIDTH 13.5 % (11.7-14.4)
[2021-09-17 10:28] LABS: ANION GAP 13.3 mmol/L (8-16); CALCIUM 9.8 mg/dL (8.4-10.2); CREATININE, SERUM 1.07 mg/dL (0.72-1.25); POTASSIUM 4.3 mmol/L (3.5-5.1)
[~2021-09-19] MED LIST changes: +ACETAMINOPHEN/CODEINE 300MG - 30MG TAB ONE; +ATROPINE SULFATE 1 MG/ML VIAL ONE; -BELLADONNA/OPIUM 30 MG SUPP RC ONE; +EPHEDRINE SULFATE INJ 50 MG/ML VIAL ONE; +GLYCOPYRROLATE INJ 0.2 MG/ML VIAL ONE; -IOPAMIDOL 300MG/ML 50ML INFUS..BTL IV ONE; +MIDAZOLAM HCL 2 MG/2 ML VIAL ONE; -PHENAZOPYRIDINE HCL 100 MG TAB ONE
[2021-09-19 09:10] VITALS: BP 142/90
== END | disposition home or self-care (01) ==
LOC: OR 06:26
PROVIDERS: ATTEND Urology
DX: N20.0 Calculus of kidney (principal); C67.9 Malignant neoplasm of bladder, unspecified; D41.01 Neoplasm of uncertain behavior of right kidney; N40.1 Benign prostatic hyperplasia with lower urinary tract symptoms; N20.1 Calculus of ureter; N13.30 Unspecified hydronephrosis; N28.1 Cyst of kidney, acquired; N41.1 Chronic prostatitis; R80.9 Proteinuria, unspecified; N39.0 Urinary tract infection, site not specified; K42.9 Umbilical hernia without obstruction or gangrene; E29.1 Testicular hypofunction; N52.9 Male erectile dysfunction, unspecified; N39.41 Urge incontinence; N32.81 Overactive bladder; E11.9 Type 2 diabetes mellitus without complications; I10 Essential (primary) hypertension; F41.9 Anxiety disorder, unspecified; F17.210 Nicotine dependence, cigarettes, uncomplicated; Z01.812 Encounter for preprocedural laboratory examination; Z01.818 Encounter for other preprocedural examination; Z20.822 Contact with and (suspected) exposure to COVID-19; Z79.899 Other long term (current) drug therapy; Z86.73 Personal history of transient ischemic attack (TIA), and cerebral infarction without residual deficits
CPT/HCPCS: 36415; 50590; 74018; 80048; 84550; 85025; J0461; J0696; J1100; J2001; J2250; J2405; J2704; J3010; U0002

== ENCOUNTER 2021-10-10 07:34 | Inpatient (IN) | payer MEDICARE, OTHER ==
[2021-10-10] VITALS (10 sets, daily range): BP systolic 114–138; BP diastolic 70–79
[~2021-10-10] VITALS: Ht 170.2 cm; Wt 90.7 kg
[~2021-10-10 07:34] MED LIST changes: -ACETAMINOPHEN/CODEINE 300MG - 30MG TAB ONE; -ATROPINE SULFATE 1 MG/ML VIAL ONE; -CEFTRIAXONE 1 GM VIAL ONE; -DEXAMETHASONE SOD PHOS INJ 4 MG/ML SDV ONE; -EPHEDRINE SULFATE INJ 50 MG/ML VIAL ONE; -FENTANYL CITRATE/PF 100MCG/2 ML INJ ONE; -GLYCOPYRROLATE INJ 0.2 MG/ML VIAL ONE; -LIDOCAINE HCL 2% LOCAL INJ 5 ML SDV VIAL INJ ONE; -MIDAZOLAM HCL 2 MG/2 ML VIAL ONE; -ONDANSETRON HCL INJ 2MG/ML 2ML 2 MG/ML VIAL ONE; -POVIDONE IODINE 0.05% 0.05 % ML PO ONE; -PROPOFOL IV EMULSION 10 MG/ML 20 ML VIAL ONE; -SEVOFLURANE INHAL SOLN 250 ML PEN BTL ONE; -SODIUM CHLORIDE 0.9% 50ML 50 ML ONE
[2021-10-10 08:21] LABS: BASOPHILS % 0.6 % (0.0-1.0); EOSINOPHILS # (AUTO) 0.1 (0.0-0.4); EOSINOPHILS % 2.6 % (0.0-6.0); HEMATOCRIT 44.5 % (38.2-49.6); LYMPHOCYTES # (AUTO) 1.9 (1.0-3.2); LYMPHOCYTES % 53.6 % (18.0-39.1); MEAN CORPUSCULAR HEMOGLOBIN 30.2 pg (28-32); MEAN CORPUSCULAR HGB CONC 33.7 g/dL (31-35); MEAN CORPUSCULAR VOLUME 89.7 fL (81-99); MONOCYTES # (AUTO) 0.4 (0.2-0.8); MONOCYTES % 11.3 % (4.4-11.3); NEUTROPHILS # (AUTO) 1.1 (2.1-6.9); NEUTROPHILS % 31.6 % (38.7-80.0); PLATELET COUNT 205 x10e3/uL (140-360); RED BLOOD COUNT 4.96 x10e6/uL (4.3-5.7); RED CELL DISTRIBUTION WIDTH 13.3 % (11.7-14.4)
[2021-10-10 08:43] LABS: ALBUMIN 3.8 g/dL (3.5-5.0); ALBUMIN/GLOBULIN RATIO 1.2 (0.8-2.0); ANION GAP 11.8 mmol/L (8-16); CALCIUM 9.4 mg/dL (8.4-10.2); CREATININE, SERUM 1.07 mg/dL (0.72-1.25); POTASSIUM 3.8 mmol/L (3.5-5.1)
[2021-10-10] MEDS ORDERED: ASPIRIN 81 MG CHEW TAB PO ONE (09:15)
[2021-10-10] MEDS ORDERED: FUROSEMIDE INJ 10 MG/ML 4 ML VIAL IV ONE (09:15)
[2021-10-10] MEDS ORDERED: NITROGLYCERIN 0.4 MG SUBL SL ONE (09:15)
[2021-10-10] MEDS ORDERED: SODIUM CHLORIDE 0.9% 100 ML ONE (10:08)
[2021-10-10] MEDS ORDERED: IOPAMIDOL 370 MG/ML 200 ML INFUS..BTL INJ ONE ×2 (10:08→15:17)
[2021-10-10] MEDS ORDERED: ONDANSETRON HCL INJ 2MG/ML 2ML 2 MG/ML VIAL IV PRN ×2 (12:00→17:00)
[2021-10-10] MEDS ORDERED: ACETAMINOPHEN 325 MG TAB PO PRN (12:00)
[2021-10-10] MEDS: ALBUTEROL/IPRATROPIUM 3 ML NEB NEB SCH ×2 (13:00→18:15)
[2021-10-10 13:14] LABS: CHOL/HDL RATIO 3.4 (3.9-4.7)
[2021-10-10] MEDS ORDERED: KETOROLAC TROMETHAMINE 30 MG/ML VIAL IV ONE ×2 (13:30→18:00)
[2021-10-10] MEDS ORDERED: SODIUM CHLORIDE 0.9% 1000ML 1,000 ML IV SCH (14:30)
[2021-10-10] MEDS ORDERED: MIDAZOLAM HCL 2 MG/2 ML VIAL ONE ×2 (15:15→16:22)
[2021-10-10] MEDS ORDERED: VERAPAMIL HCL 2.5 MG/ML 2 ML VIAL ONE (15:15)
[2021-10-10] MEDS ORDERED: FENTANYL CITRATE/PF 100MCG/2 ML INJ ONE (15:16)
[2021-10-10] MEDS ORDERED: LIDOCAINE HCL 2% LOCAL 20 ML VIAL ONE (15:16)
[2021-10-10] MEDS ORDERED: SODIUM CHLORIDE 0.9% 1000ML 1,000 ML ONE (15:17)
[2021-10-10] MEDS ORDERED: HEPARIN SOD/SOD CHLORIDE 2,000 ML ONE (15:17)
[2021-10-10 16:03] LABS: CREATINE KINASE MB 1.3 ng/mL (0-5.0)
[2021-10-10] MEDS ORDERED: BIVALRIUDIN 250 MG/VIAL VIAL IV ONE (16:15)
[2021-10-10] MEDS ORDERED: SODIUM CHLORIDE 0.9% 50ML 50 ML ONE (16:15)
[2021-10-10] MEDS ORDERED: CLOPIDOGREL BISULFATE 75 MG TAB ONE (16:47)
[2021-10-10] MEDS ORDERED: ASPIRIN 325 MG TAB ONE (16:47)
[2021-10-10] MEDS: SODIUM CHLORIDE 0.9% 1000ML 1,000 ML IV SCH (17:00)
[2021-10-10] MEDS ORDERED: HYDROMORPHONE 1MG/1ML INJ IV PRN (17:30)
[2021-10-10] MEDS ORDERED: HYDROCODONE/APAP 5MG-325MG TAB PO PRN (17:30)
[2021-10-10] MEDS ORDERED: FAMOTIDINE20 MG PO (17:41)
[2021-10-10] MEDS ORDERED: TRAZODONE HCL100 MG PO (17:41)
[2021-10-10] MEDS ORDERED: TRAMADOL HCL 50 MG TAB PO PRN (18:30)
[2021-10-10] MEDS ORDERED: ATORVASTATIN 20 MG TAB PO SCH (21:00)
[2021-10-10] MEDS ORDERED: ZOLPIDEM TARTRATE 5 MG TAB PO PRN (21:00)
[2021-10-10] MEDS ORDERED: ATORVASTATIN 40 MG TAB PO SCH (21:00)
[2021-10-11 00:07] VITALS: BP 117/76
[2021-10-11] MEDS: ALBUTEROL/IPRATROPIUM 3 ML NEB NEB SCH ×2 (00:17→07:25)
[2021-10-11] MEDS: SODIUM CHLORIDE 0.9% 1000ML 1,000 ML IV SCH (02:47)
[2021-10-11 04:01] VITALS: BP 144/84
[2021-10-11 06:19] LABS: BASOPHILS % 0.2 % (0.0-1.0); EOSINOPHILS # (AUTO) 0.1 (0.0-0.4); EOSINOPHILS % 3.4 % (0.0-6.0); HEMATOCRIT 39.7 % (38.2-49.6); HEMOGLOBIN 13.2 g/dL (14.0-18.0); LYMPHOCYTES % 47.5 % (18.0-39.1); MEAN CORPUSCULAR HEMOGLOBIN 30.3 pg (28-32); MEAN CORPUSCULAR HGB CONC 33.2 g/dL (31-35); MEAN CORPUSCULAR VOLUME 91.1 fL (81-99); MONOCYTES # (AUTO) 0.3 (0.2-0.8); NEUTROPHILS # (AUTO) 1.7 (2.1-6.9); NEUTROPHILS % 40.4 % (38.7-80.0); PLATELET COUNT 168 x10e3/uL (140-360); RED BLOOD COUNT 4.36 x10e6/uL (4.3-5.7); RED CELL DISTRIBUTION WIDTH 13.1 % (11.7-14.4)
[2021-10-11 06:52] LABS: ALBUMIN 3.2 g/dL (3.5-5.0); ALBUMIN/GLOBULIN RATIO 1.2 (0.8-2.0); ANION GAP 10.9 mmol/L (8-16); CALCIUM 8.6 mg/dL (8.4-10.2); CREATININE, SERUM 0.92 mg/dL (0.72-1.25); POTASSIUM 3.9 mmol/L (3.5-5.1)
[2021-10-11 07:25] LABS: CHOL/HDL RATIO 3.4 (3.9-4.7)
[2021-10-11] MEDS: LOSARTAN POTASSIUM 25 MG TAB PO SCH ×2 (07:34→08:37)
[2021-10-11] MEDS: ASPIRIN 81 MG ENTERIC COATED PO SCH ×2 (07:34→08:37)
[2021-10-11] MEDS: CLOPIDOGREL BISULFATE 75 MG TAB PO SCH ×2 (07:35→08:37)
[2021-10-11] MEDS ORDERED: Atorvastatin PO (08:21)
[2021-10-11] MEDS ORDERED: PLAVIX75 MG PO (08:21)
[2021-10-11] MEDS ORDERED: ASPIRIN EC81 MG PO (08:21)
[2021-10-11] MEDS ORDERED: TRAZODONE HCL 50 MG TAB PO PRN (08:30)
[2021-10-11] MEDS ORDERED: ALBUTEROL/IPRATROPIUM 3 ML NEB NEB PRN (08:30)
[2021-10-11] MEDS ORDERED: ALPRAZOLAM 0.25 MG TAB PO PRN (08:30)
[2021-10-11 08:32] VITALS: BP 147/88
[2021-10-11] MEDS ORDERED: NON-FORMULARY MEDICATION (Losartan Potassium 25 MG) PO SCH (09:00)
[2021-10-11] MEDS ORDERED: METOPROLOL TARTRATE 25 MG TAB PO SCH (09:00)
[2021-10-11 09:10] VITALS: BP 147/88
[2021-10-11] MEDS ORDERED: CLARITIN-D 241 EACH PO (10:34)
[2021-10-11] MEDS ORDERED: LORATADINE/PSEUDOEPHEDRINE 24 HR SR TAB PO SCH (10:45)
== END 2021-10-11 12:13 | disposition home or self-care (01) | DRG 247 ==
LOC: ER 07:45 → ERHOLD 11:06 → CATH LAB V 15:53 → MED/SURG2 17:10
PROVIDERS: ADMIT Internal Medicine; ATTEND Internal Medicine
PROC: 027035Z Dilation of Coronary Artery, One Artery with Two Drug-eluting Intraluminal Devices, Percutaneous Approach (ICD-10-PCS; principal; 2021-10-10)
PROC: 4A023N7 Measurement of Cardiac Sampling and Pressure, Left Heart, Percutaneous Approach (ICD-10-PCS; 2021-10-10)
PROC: B2111ZZ Fluoroscopy of Multiple Coronary Arteries using Low Osmolar Contrast (ICD-10-PCS; 2021-10-10)
PROC: B2151ZZ Fluoroscopy of Left Heart using Low Osmolar Contrast (ICD-10-PCS; 2021-10-10)
DX: I25.110 Atherosclerotic heart disease of native coronary artery with unstable angina pectoris (principal); I10 Essential (primary) hypertension; Z86.73 Personal history of transient ischemic attack (TIA), and cerebral infarction without residual deficits; E78.00 Pure hypercholesterolemia, unspecified; M79.18 Myalgia, other site; E78.5 Hyperlipidemia, unspecified; Z20.822 Contact with and (suspected) exposure to COVID-19
CPT/HCPCS: 36415; 71045; 71260; 76937; 80053; 80061; 82550; 82553; 83880; 84443; 84484; 85025; 85379; 92920; 92928; 93005; 93306; 93454; 94640; 94799; 99152; 99153; 99285; C1725; C1760; C1769; C1874; C1876; C1887; J0583; J1885; J1940; J2001; J2250; J3010; J7030; J7050; Q9967; U0002

== ENCOUNTER → 2021-10-28 | Outpatient (CLI) | payer MEDICARE, OTHER ==
[~2021-10-28] MED LIST changes: +ASPIRIN EC81 MG PO; +Atorvastatin PO; +CLARITIN-D 241 EACH PO; +FAMOTIDINE20 MG PO; +PLAVIX75 MG PO; +TRAZODONE HCL100 MG PO
== END ==
LOC: CT 15:49
PROVIDERS: ATTEND Urology
DX: N20.0 Calculus of kidney (principal)
CPT/HCPCS: 74176

== ENCOUNTER → 2022-01-09 | Day surgery (SDC) | payer MEDICARE, OTHER ==
[2022-01-07 10:47] LABS: BASOPHILS % 0.8 % (0.0-1.0); EOSINOPHILS # (AUTO) 0.1 (0.0-0.4); EOSINOPHILS % 2.6 % (0.0-6.0); HEMATOCRIT 44.4 % (38.2-49.6); HEMOGLOBIN 14.3 g/dL (14.0-18.0); LYMPHOCYTES # (AUTO) 1.5 (1.0-3.2); LYMPHOCYTES % 37.5 % (18.0-39.1); MEAN CORPUSCULAR HGB CONC 32.2 g/dL (31-35); MEAN CORPUSCULAR VOLUME 93.3 fL (81-99); MONOCYTES # (AUTO) 0.3 (0.2-0.8); MONOCYTES % 8.7 % (4.4-11.3); NEUTROPHILS # (AUTO) 1.9 (2.1-6.9); NEUTROPHILS % 49.4 % (38.7-80.0); PLATELET COUNT 193 x10e3/uL (140-360); RED BLOOD COUNT 4.76 x10e6/uL (4.3-5.7); RED CELL DISTRIBUTION WIDTH 13.5 % (11.7-14.4)
[2022-01-07 11:04] LABS: CALCIUM 8.6 mg/dL (8.4-10.2); CREATININE, SERUM 1.13 mg/dL (0.72-1.25)
[~2022-01-09] MED LIST changes: +B&O 60MG R/S 60 MG SUPP PR ONE; +CEFTRIAXONE 1 GM VIAL ONE; +DEXAMETHASONE SOD PHOS INJ 4 MG/ML SDV ONE; +IOPAMIDOL 610MG/1ML 300 MG/ML VIAL IV ONE; +LIDOCAINE HCL 2% LOCAL INJ 5 ML SDV VIAL INJ ONE; +MIDAZOLAM HCL 2 MG/2 ML VIAL ONE; +ONDANSETRON HCL INJ 2MG/ML 2ML 2 MG/ML VIAL ONE; +POVIDONE IODINE 0.05% 0.05 % ML PO ONE; +PROPOFOL IV EMULSION 10 MG/ML 20 ML VIAL ONE; +SEVOFLURANE INHAL SOLN 250 ML PEN BTL ONE
[2022-01-09 08:45] VITALS: BP 128/81
== END | disposition home or self-care (01) ==
LOC: OR 07:20
PROVIDERS: ATTEND Urology
DX: C67.9 Malignant neoplasm of bladder, unspecified (principal); N35.912 Unspecified bulbous urethral stricture, male; Z87.442 Personal history of urinary calculi; N40.0 Benign prostatic hyperplasia without lower urinary tract symptoms; Z98.890 Other specified postprocedural states; N32.89 Other specified disorders of bladder; I25.118 Atherosclerotic heart disease of native coronary artery with other forms of angina pectoris; I10 Essential (primary) hypertension; E78.00 Pure hypercholesterolemia, unspecified; E78.5 Hyperlipidemia, unspecified; K21.9 Gastro-esophageal reflux disease without esophagitis; I45.10 Unspecified right bundle-branch block; R00.1 Bradycardia, unspecified; F17.290 Nicotine dependence, other tobacco product, uncomplicated; Z01.810 Encounter for preprocedural cardiovascular examination; Z01.812 Encounter for preprocedural laboratory examination; Z01.818 Encounter for other preprocedural examination; Z20.822 Contact with and (suspected) exposure to COVID-19; Z79.02 Long term (current) use of antithrombotics/antiplatelets; Z79.82 Long term (current) use of aspirin; Z79.899 Other long term (current) drug therapy; Z95.5 Presence of coronary angioplasty implant and graft; Z86.73 Personal history of transient ischemic attack (TIA), and cerebral infarction without residual deficits
CPT/HCPCS: 36415; 52281; 71046; 74018; 74420; 80048; 84550; 85025; 93005; C1758; J0696; J1100; J2001; J2250; J2405; J2704; Q9967; U0002

== ENCOUNTER → 2022-04-10 | Day surgery (SDC) | payer MEDICARE, OTHER ==
[2022-04-08 15:52] LABS: BASOPHILS % 0.8 % (0.0-1.0); EOSINOPHILS # (AUTO) 0.2 (0.0-0.4); EOSINOPHILS % 4.1 % (0.0-6.0); HEMATOCRIT 41.4 % (38.2-49.6); HEMOGLOBIN 13.3 g/dL (14.0-18.0); LYMPHOCYTES # (AUTO) 1.7 (1.0-3.2); LYMPHOCYTES % 43.3 % (18.0-39.1); MEAN CORPUSCULAR HEMOGLOBIN 29.7 pg (28-32); MEAN CORPUSCULAR HGB CONC 32.1 g/dL (31-35); MEAN CORPUSCULAR VOLUME 92.4 fL (81-99); MONOCYTES # (AUTO) 0.5 (0.2-0.8); MONOCYTES % 11.6 % (4.4-11.3); NEUTROPHILS # (AUTO) 1.5 (2.1-6.9); NEUTROPHILS % 39.7 % (38.7-80.0); PLATELET COUNT 199 x10e3/uL (140-360); RED BLOOD COUNT 4.48 x10e6/uL (4.3-5.7); RED CELL DISTRIBUTION WIDTH 13.1 % (11.7-14.4)
[2022-04-08 16:18] LABS: ALBUMIN 3.5 g/dL (3.5-5.0); ALBUMIN/GLOBULIN RATIO 1.3 (0.8-2.0); ANION GAP 13.7 mmol/L (8-16); CALCIUM 8.6 mg/dL (8.4-10.2); CREATININE, SERUM 1.31 mg/dL (0.72-1.25); POTASSIUM 4.7 mmol/L (3.5-5.1)
[~2022-04-10] MED LIST changes: +FENTANYL CITRATE/PF 100MCG/2 ML INJ ONE; +GLYCOPYRROLATE INJ 0.2 MG/ML VIAL ONE; -IOPAMIDOL 610MG/1ML 300 MG/ML VIAL IV ONE
[2022-04-10 12:35] VITALS: BP 138/84
== END | disposition home or self-care (01) ==
LOC: OR 08:15
PROVIDERS: ATTEND Urology
DX: C67.9 Malignant neoplasm of bladder, unspecified (principal); N35.919 Unspecified urethral stricture, male, unspecified site; N20.0 Calculus of kidney; I12.9 Hypertensive chronic kidney disease with stage 1 through stage 4 chronic kidney disease, or unspecified chronic kidney disease; N18.9 Chronic kidney disease, unspecified; I25.118 Atherosclerotic heart disease of native coronary artery with other forms of angina pectoris; F41.9 Anxiety disorder, unspecified; Z95.5 Presence of coronary angioplasty implant and graft; E78.00 Pure hypercholesterolemia, unspecified; K21.9 Gastro-esophageal reflux disease without esophagitis; E78.5 Hyperlipidemia, unspecified; Z01.812 Encounter for preprocedural laboratory examination; Z01.818 Encounter for other preprocedural examination; Z79.02 Long term (current) use of antithrombotics/antiplatelets; Z79.82 Long term (current) use of aspirin; Z79.899 Other long term (current) drug therapy; Z86.73 Personal history of transient ischemic attack (TIA), and cerebral infarction without residual deficits; Z87.891 Personal history of nicotine dependence
CPT/HCPCS: 36415; 52281; 74018; 74420; 80053; 84550; 85025; C1758; J0696; J1100; J2001; J2250; J2405; J2704; J3010

== ENCOUNTER → 2022-08-05 | Day surgery (SDC) | payer MEDICARE, OTHER ==
[2022-07-30 14:12] LABS: BASOPHILS % 0.5 % (0.0-1.0); EOSINOPHILS # (AUTO) 0.1 (0.0-0.4); EOSINOPHILS % 2.3 % (0.0-6.0); HEMATOCRIT 45.2 % (38.2-49.6); HEMOGLOBIN 13.8 g/dL (14.0-18.0); LYMPHOCYTES # (AUTO) 1.6 (1.0-3.2); MEAN CORPUSCULAR HEMOGLOBIN 28.8 pg (28-32); MEAN CORPUSCULAR HGB CONC 30.5 g/dL (31-35); MEAN CORPUSCULAR VOLUME 94.4 fL (81-99); MONOCYTES # (AUTO) 0.4 (0.2-0.8); MONOCYTES % 8.6 % (4.4-11.3); NEUTROPHILS # (AUTO) 2.4 (2.1-6.9); NEUTROPHILS % 53.1 % (38.7-80.0); PLATELET COUNT 195 x10e3/uL (140-360); RED BLOOD COUNT 4.79 x10e6/uL (4.3-5.7); RED CELL DISTRIBUTION WIDTH 12.7 % (11.7-14.4)
[2022-07-30 14:31] LABS: ALBUMIN 3.7 g/dL (3.5-5.0); ALBUMIN/GLOBULIN RATIO 1.3 (0.8-2.0); ANION GAP 16.9 mmol/L (8-16); CALCIUM 8.9 mg/dL (8.4-10.2); CREATININE, SERUM 1.14 mg/dL (0.72-1.25); POTASSIUM 3.9 mmol/L (3.5-5.1)
[~2022-08-05] MED LIST changes: -B&O 60MG R/S 60 MG SUPP PR ONE; +EPHEDRINE SULFATE INJ 50 MG/ML VIAL ONE; -FENTANYL CITRATE/PF 100MCG/2 ML INJ ONE; -GLYCOPYRROLATE INJ 0.2 MG/ML VIAL ONE; +IOPAMIDOL 300MG/ML 50ML INFUS..BTL IV ONE; +PHENAZOPYRIDINE HCL 100 MG TAB ONE
[2022-08-05 10:30] VITALS: BP 138/81
== END | disposition home or self-care (01) ==
LOC: OR 07:06
PROVIDERS: ATTEND Urology
DX: C67.9 Malignant neoplasm of bladder, unspecified (principal); N20.0 Calculus of kidney; N39.0 Urinary tract infection, site not specified; N40.0 Benign prostatic hyperplasia without lower urinary tract symptoms; I25.10 Atherosclerotic heart disease of native coronary artery without angina pectoris; I10 Essential (primary) hypertension; Z01.810 Encounter for preprocedural cardiovascular examination; Z01.812 Encounter for preprocedural laboratory examination; Z79.02 Long term (current) use of antithrombotics/antiplatelets; Z79.82 Long term (current) use of aspirin; Z79.899 Other long term (current) drug therapy; Z98.890 Other specified postprocedural states; Z86.73 Personal history of transient ischemic attack (TIA), and cerebral infarction without residual deficits; Z95.5 Presence of coronary angioplasty implant and graft
CPT/HCPCS: 36415; 52005; 74420; 80053; 85025; 93005; C1758; J0696; J1100; J2001; J2250; J2405; J2704; Q9967

== ENCOUNTER → 2023-07-12 | Outpatient (REF) | payer MEDICARE, OTHER ==
[~2023-07-12] MED LIST changes: -CEFTRIAXONE 1 GM VIAL ONE; -DEXAMETHASONE SOD PHOS INJ 4 MG/ML SDV ONE; -EPHEDRINE SULFATE INJ 50 MG/ML VIAL ONE; -IOPAMIDOL 300MG/ML 50ML INFUS..BTL IV ONE; -LIDOCAINE HCL 2% LOCAL INJ 5 ML SDV VIAL INJ ONE; -MIDAZOLAM HCL 2 MG/2 ML VIAL ONE; +MULTI-VITAMIN1 EACH PO; -ONDANSETRON HCL INJ 2MG/ML 2ML 2 MG/ML VIAL ONE; -PHENAZOPYRIDINE HCL 100 MG TAB ONE; -POVIDONE IODINE 0.05% 0.05 % ML PO ONE; -PROPOFOL IV EMULSION 10 MG/ML 20 ML VIAL ONE; -SEVOFLURANE INHAL SOLN 250 ML PEN BTL ONE
== END ==
LOC: CT 14:35
PROVIDERS: ATTEND Nurse Practitioner Family
DX: R06.02 Shortness of breath (principal); R05.3 Chronic cough; J44.9 Chronic obstructive pulmonary disease, unspecified; J43.9 Emphysema, unspecified; F17.200 Nicotine dependence, unspecified, uncomplicated
CPT/HCPCS: 71250

== ENCOUNTER → 2023-07-20 | Outpatient (REF) | payer MEDICARE, OTHER | LOC: RESP 12:35 → EDSTATUS 13:00 | PROVIDERS: ATTEND Family Medicine | DX: R05.3 Chronic cough (principal); R06.02 Shortness of breath; J44.9 Chronic obstructive pulmonary disease, unspecified; J43.9 Emphysema, unspecified; F17.200 Nicotine dependence, unspecified, uncomplicated | CPT/HCPCS: 94060; 94727; 94729 ==

== ENCOUNTER → 2024-03-30 | Day surgery (SDC) | payer MEDICARE, OTHER ==
[2024-03-28 11:16] LABS: BASOPHILS % 0.9 % (0.0-1.0); EOSINOPHILS # (AUTO) 0.2 (0.0-0.4); EOSINOPHILS % 4.7 % (0.0-6.0); LYMPHOCYTES # (AUTO) 1.5 (1.0-3.2); MEAN CORPUSCULAR HGB CONC 32.5 g/dL (31-35); MEAN CORPUSCULAR VOLUME 92.2 fL (81-99); MONOCYTES # (AUTO) 0.5 (0.2-0.8); MONOCYTES % 15.2 % (4.4-11.3); NEUTROPHILS # (AUTO) 1.2 (2.1-6.9); NEUTROPHILS % 34.6 % (38.7-80.0); PLATELET COUNT 167 x10e3/uL (140-360); RED BLOOD COUNT 4.34 x10e6/uL (4.3-5.7); RED CELL DISTRIBUTION WIDTH 12.6 % (11.7-14.4); WHITE BLOOD COUNT 3.43 x10e3/uL (4.8-10.8)
[~2024-03-30] MED LIST changes: +HYOSCYAMINE SULFATE 0.5 MG/ML INJ ONE; +LIDOCAINE HCL 2% LOCAL INJ 5 ML SDV VIAL INJ ONE; +MIDAZOLAM HCL 2 MG/2 ML VIAL ONE; +PROPOFOL IV EMULSION 10 MG/ML 20 ML VIAL ONE
[2024-03-30] MEDS: LACTATED RINGER'S 1,000 ML ONE (05:52)
[2024-03-30 08:01] VITALS: TEMP 97.3
[2024-03-30 08:30] VITALS: BP 150/80; PULSE 70; RESP 16; O2SAT 95
== END | disposition home or self-care (01) ==
LOC: OR 05:53
PROVIDERS: ATTEND Internal Medicine Gastroenterology
DX: K52.9 Noninfective gastroenteritis and colitis, unspecified (principal); D12.5 Benign neoplasm of sigmoid colon; D12.3 Benign neoplasm of transverse colon; K63.89 Other specified diseases of intestine; K57.30 Diverticulosis of large intestine without perforation or abscess without bleeding; K64.8 Other hemorrhoids; K21.00 Gastro-esophageal reflux disease with esophagitis, without bleeding; A04.8 Other specified bacterial intestinal infections; C67.9 Malignant neoplasm of bladder, unspecified; I10 Essential (primary) hypertension; E78.5 Hyperlipidemia, unspecified; I25.10 Atherosclerotic heart disease of native coronary artery without angina pectoris; N20.0 Calculus of kidney; Z01.810 Encounter for preprocedural cardiovascular examination; Z01.812 Encounter for preprocedural laboratory examination; Z79.02 Long term (current) use of antithrombotics/antiplatelets; Z79.82 Long term (current) use of aspirin; Z79.899 Other long term (current) drug therapy; Z68.28 Body mass index [BMI] 28.0-28.9, adult; Z95.5 Presence of coronary angioplasty implant and graft; Z86.73 Personal history of transient ischemic attack (TIA), and cerebral infarction without residual deficits; Z87.891 Personal history of nicotine dependence
CPT/HCPCS: 36415; 45380; 45385; 83630; 83993; 85025; 87045; 87177; 87324; 87328; 87449; 88305; 93005; J1980; J2001; J2250; J2470; J2704; J7121; 45378

== ENCOUNTER 2024-06-29 16:55 | Emergency (ER) | payer MEDICARE, OTHER ==
[~2024-06-29] VITALS: Ht 170.2 cm; Wt 81.6 kg
[~2024-06-29 16:55] MED LIST changes: -HYOSCYAMINE SULFATE 0.5 MG/ML INJ ONE; -LIDOCAINE HCL 2% LOCAL INJ 5 ML SDV VIAL INJ ONE; -MIDAZOLAM HCL 2 MG/2 ML VIAL ONE; -PROPOFOL IV EMULSION 10 MG/ML 20 ML VIAL ONE
[2024-06-29 18:35] LABS: BASOPHILS % 0.6 % (0.0-1.0); EOSINOPHILS # (AUTO) 0.2 (0.0-0.4); EOSINOPHILS % 3.3 % (0.0-6.0); HEMATOCRIT 43.9 % (38.2-49.6); HEMOGLOBIN 14.5 g/dL (14.0-18.0); LYMPHOCYTES # (AUTO) 2.3 (1.0-3.2); LYMPHOCYTES % 48.4 % (18.0-39.1); MEAN CORPUSCULAR HEMOGLOBIN 29.4 pg (28-32); MEAN CORPUSCULAR VOLUME 88.9 fL (81-99); MONOCYTES # (AUTO) 0.6 (0.2-0.8); MONOCYTES % 11.9 % (4.4-11.3); NEUTROPHILS # (AUTO) 1.7 (2.1-6.9); PLATELET COUNT 227 x10e3/uL (140-360); RED BLOOD COUNT 4.94 x10e6/uL (4.3-5.7); RED CELL DISTRIBUTION WIDTH 13.2 % (11.7-14.4); WHITE BLOOD COUNT 4.79 x10e3/uL (4.8-10.8)
[2024-06-29 18:50] LABS: ALBUMIN 3.8 g/dL (3.5-5.0); ALBUMIN/GLOBULIN RATIO 1.2 (0.8-2.0); ANION GAP 13.9 mmol/L (8-16); BILIRUBIN,TOTAL 0.7 mg/dL (0.2-1.2); CALCIUM 9.6 mg/dL (8.4-10.2); CREATININE, SERUM 1.19 mg/dL (0.72-1.25); POTASSIUM 3.9 mmol/L (3.5-5.1); TOTAL PROTEIN 6.9 g/dL (6.5-8.1)
[2024-06-29 18:58] LABS: TROPONIN I 0.002 ng/mL (0-0.300)
[2024-06-29] MEDS ORDERED: IOPAMIDOL 370 MG/ML 100 ML INFUS..BTL INJ ONE (19:37)
[2024-06-29 20:49] VITALS: PULSE 56; RESP 16; O2SAT 100
[2024-06-29] MEDS: ALBUTEROL/IPRATROPIUM 3 ML NEB NEB STA (20:49)
[2024-06-29 21:04] VITALS: PULSE 57; RESP 16
[2024-06-29] MEDS ORDERED: PREDNISONE20 MG PO (22:44)
[2024-06-29] MEDS ORDERED: VENTOLIN HFA18 GM INH (22:44)
[2024-06-29 23:07] VITALS: PULSE 51; RESP 16; TEMP 97.7; O2SAT 99
== END 2024-06-29 23:09 | disposition home or self-care (01) ==
LOC: ER 17:56
DX: R06.02 Shortness of breath (principal); I10 Essential (primary) hypertension; E78.5 Hyperlipidemia, unspecified; Z85.51 Personal history of malignant neoplasm of bladder; Z86.73 Personal history of transient ischemic attack (TIA), and cerebral infarction without residual deficits; Z87.442 Personal history of urinary calculi
CPT/HCPCS: 36415; 71260; 80053; 82550; 83690; 83880; 84484; 85025; 93005; 94640; 94799; 99284; Q9967

== ENCOUNTER → 2024-09-11 | Outpatient (REF) | payer MEDICARE, OTHER ==
[~2024-09-11] MED LIST changes: +PREDNISONE20 MG PO; +VENTOLIN HFA18 GM INH
[2024-09-12 08:55] LABS: RHEUMATOID FACTOR <10.0 IU/mL (<14.0)
[2024-09-13 07:16] LABS: ALPHA-1-ANTITRYPSIN 151 mg/dL (101-187)
[2024-09-13 15:12] LABS: cANCA TITER <1:20 titer (Neg:<1:20)
[2024-09-14 05:52] LABS: ATYPICAL pANCA TITER <1:20 titer (Neg:<1:20); pANCA TITER <1:20 titer (Neg:<1:20)
== END ==
LOC: RAD 11:52
PROVIDERS: ATTEND Internal Medicine Critical Care Medicine
DX: J18.9 Pneumonia, unspecified organism (principal); J44.9 Chronic obstructive pulmonary disease, unspecified
CPT/HCPCS: 71046; 82103; 82785; 86021; 86039; 86431

== ENCOUNTER → 2024-10-13 | Day surgery (SDC) | payer MEDICARE, OTHER ==
[2024-10-12 10:31] LABS: BASOPHILS % 0.9 % (0.0-1.0); EOSINOPHILS # (AUTO) 0.1 (0.0-0.4); EOSINOPHILS % 2.5 % (0.0-6.0); HEMATOCRIT 41.9 % (38.2-49.6); HEMOGLOBIN 14.1 g/dL (14.0-18.0); LYMPHOCYTES # (AUTO) 1.8 (1.0-3.2); MEAN CORPUSCULAR HEMOGLOBIN 29.5 pg (28-32); MEAN CORPUSCULAR HGB CONC 33.7 g/dL (31-35); MEAN CORPUSCULAR VOLUME 87.7 fL (81-99); MONOCYTES # (AUTO) 0.6 (0.2-0.8); MONOCYTES % 13.2 % (4.4-11.3); NEUTROPHILS # (AUTO) 1.8 (2.1-6.9); NEUTROPHILS % 41.2 % (38.7-80.0); PLATELET COUNT 254 x10e3/uL (140-360); RED BLOOD COUNT 4.78 x10e6/uL (4.3-5.7); RED CELL DISTRIBUTION WIDTH 13.6 % (11.7-14.4); WHITE BLOOD COUNT 4.47 x10e3/uL (4.8-10.8)
[2024-10-12 10:56] LABS: ALBUMIN 3.9 g/dL (3.5-5.0); ALBUMIN/GLOBULIN RATIO 1.4 (0.8-2.0); ANION GAP 15.2 mmol/L (8-16); BILIRUBIN,TOTAL 0.9 mg/dL (0.2-1.2); CALCIUM 9.4 mg/dL (8.4-10.2); CREATININE, SERUM 1.19 mg/dL (0.72-1.25); POTASSIUM 4.2 mmol/L (3.5-5.1); TOTAL PROTEIN 6.7 g/dL (6.5-8.1)
[~2024-10-13] MED LIST changes: +FENTANYL CITRATE/PF 100MCG/2 ML INJ ONE; +LIDOCAINE HCL 2% LOCAL INJ 5 ML SDV VIAL INJ ONE; +METOCLOPRAMIDE HCL 10 MG/2ML VIAL ONE; +ONDANSETRON HCL INJ 2MG/ML 2ML 2 MG/ML VIAL ONE; +PROPOFOL IV EMULSION 10 MG/ML 20 ML VIAL ONE; +SEVOFLURANE INHAL SOLN 250 ML PEN BTL ONE
[2024-10-13] MEDS: LACTATED RINGER'S 1,000 ML ONE (07:17)
[2024-10-13] MEDS: CEFTRIAXONE 1 GM VIAL ONE (07:17)
[2024-10-13] MEDS: PHENAZOPYRIDINE HCL 100 MG TAB ONE (10:47)
[2024-10-13 11:15] VITALS: BP 158/92; PULSE 68; RESP 18; O2SAT 99
== END | disposition home or self-care (01) ==
LOC: OR 05:56
PROVIDERS: ATTEND Urology
DX: N20.0 Calculus of kidney (principal); C67.9 Malignant neoplasm of bladder, unspecified; N20.1 Calculus of ureter; N13.30 Unspecified hydronephrosis; N28.1 Cyst of kidney, acquired; N39.0 Urinary tract infection, site not specified; N40.1 Benign prostatic hyperplasia with lower urinary tract symptoms; N13.8 Other obstructive and reflux uropathy; N35.819 Other urethral stricture, male, unspecified site; N32.0 Bladder-neck obstruction; N28.89 Other specified disorders of kidney and ureter; N32.89 Other specified disorders of bladder; Z98.890 Other specified postprocedural states; N41.1 Chronic prostatitis; R80.9 Proteinuria, unspecified; K42.9 Umbilical hernia without obstruction or gangrene; N32.81 Overactive bladder; N39.41 Urge incontinence; N52.9 Male erectile dysfunction, unspecified; E29.1 Testicular hypofunction; D41.01 Neoplasm of uncertain behavior of right kidney; E11.9 Type 2 diabetes mellitus without complications; I10 Essential (primary) hypertension; I25.10 Atherosclerotic heart disease of native coronary artery without angina pectoris; E78.5 Hyperlipidemia, unspecified; I45.10 Unspecified right bundle-branch block; I35.8 Other nonrheumatic aortic valve disorders; F17.290 Nicotine dependence, other tobacco product, uncomplicated; Z71.6 Tobacco abuse counseling; Z01.810 Encounter for preprocedural cardiovascular examination; Z01.812 Encounter for preprocedural laboratory examination; Z01.818 Encounter for other preprocedural examination; Z79.02 Long term (current) use of antithrombotics/antiplatelets; Z79.82 Long term (current) use of aspirin; Z79.899 Other long term (current) drug therapy; Z68.30 Body mass index [BMI] 30.0-30.9, adult; Z71.3 Dietary counseling and surveillance; Z95.5 Presence of coronary angioplasty implant and graft
CPT/HCPCS: 36415; 52352; 74018; 74420; 80053; 85025; 88300; 93005; C1758; C1769; J0696; J2003; J2405; J2704; J2765; J3010; J7121

== ENCOUNTER → 2024-10-20 | Outpatient (REF) | payer MEDICARE, OTHER ==
[~2024-10-20] MED LIST changes: -FENTANYL CITRATE/PF 100MCG/2 ML INJ ONE; -LIDOCAINE HCL 2% LOCAL INJ 5 ML SDV VIAL INJ ONE; -METOCLOPRAMIDE HCL 10 MG/2ML VIAL ONE; -ONDANSETRON HCL INJ 2MG/ML 2ML 2 MG/ML VIAL ONE; -PROPOFOL IV EMULSION 10 MG/ML 20 ML VIAL ONE; -SEVOFLURANE INHAL SOLN 250 ML PEN BTL ONE; +SODIUM CHLORIDE 0.9% 250ML 250 ML ONE
== END ==
LOC: CT 08:17
PROVIDERS: ATTEND Urology
DX: R31.21 Asymptomatic microscopic hematuria (principal)
CPT/HCPCS: 74178; J7050

== ENCOUNTER → 2025-04-11 | Outpatient (REF) | payer MEDICARE, OTHER ==
[~2025-04-11] MED LIST changes: -SODIUM CHLORIDE 0.9% 250ML 250 ML ONE
== END ==
LOC: MRI 09:59
PROVIDERS: ATTEND Orthopaedic Surgery
DX: M75.42 Impingement syndrome of left shoulder (principal)